=== PATIENT | female | born 1955 | race Caucasian/White ===

== ENCOUNTER 2021-12-14 19:54 | Emergency (ER) | payer MEDICARE, BC, SELFPAY ==
[2021-12-14 19:58] VITALS: BP 145/72; PULSE 86; RESP 16; TEMP 36.6; O2SAT 99; BMI 23.5
--- NOTE | 2021-12-14 21:58 | CRLHL7_ITS ---
For Patients: As a result of the Century Cures Act, medical imaging exams and procedure reports are released immediately into your electronic medical record. You may view this report before your referring provider. If you have questions, please contact your health care provider. INDICATION: Fall, face trauma. TECHNIQUE: CT head without contrast. COMPARISON: None. FINDINGS: CSF spaces: Within normal limits for age. Brain parenchyma and extra-axial spaces: The moreno-white differentiation is normal. No sign of mass, hemorrhage, or midline shift. No extra-axial fluid collection. Skull base and calvarium: The visualized mastoid air cells demonstrate no acute or significant findings. For osteoma seen noted sinus mucosal opacification. The visualized orbits are grossly unremarkable. No skull fractures. A comminuted anterior nasal bone fractures noted. IMPRESSION: No evidence of an acute intracranial abnormality. Comminuted anterior nasal bone fracture. Please note that all CT scans at this facility use dose modulation, iterative reconstruction, and/or weight-based dosing when appropriate to reduce radiation dose to as low as reasonably achievable. Dictated by Christiano Hernandez MD @ 12/15/2021 12:26:32 AM (Electronically Signed)
--- NOTE | 2021-12-14 21:58 | CRLHL7_ITS ---
For Patients: As a result of the Cures Act, medical imaging exams and procedure reports are released immediately into your electronic medical record. You may view this report before your referring provider. If you have questions, please contact your health care provider. INDICATION: Facial injury. TECHNIQUE: CT maxillofacial without contrast. COMPARISON: None. FINDINGS: Facial bones: Comminuted anterior nasal bone fracture. No other maxillofacial fracture identified. The orbits are intact. Orbits and globes: Unremarkable. Globes are intact. No sign of intraorbital hemorrhage or emphysema. Sinuses: Mild frothy secretions within the left sphenoid sinus. Soft tissues: Unremarkable. Cervical spine: Degenerative changes. IMPRESSION: Comminuted anterior nasal bone fracture. Please note that all CT scans at this facility use dose modulation, iterative reconstruction, and/or weight-based dosing when appropriate to reduce radiation dose to as low as reasonably achievable. Dictated by Christiano Hernandez MD @ 12/15/2021 12:36:30 AM (Electronically Signed)
--- NOTE | 2021-12-14 22:14 | ED_ITS ---
HPI - Fall General Time Seen by Provider: 22:14 Date Seen: 12/14/21 Chief Complaint: Fall/Minor Trauma Stated Complaint: Fall Time Seen by Provider: 12/14/21 22:14 Source: patient, RN notes reviewed and old records reviewed Mode of arrival: ambulatory Limitations: no limitations History of Present Illness HPI Narrative: Patient is a very pleasant 66-year-old female with a history of Parkinson's, orthostatic hypotension who comes to the emergency room via EMS after falling at her assisted living in [place]. Patient states that she was closing the blinds and that she fell hitting her face. She was not knocked unconscious but does note a lot of blood from her nose and nose pain. She denies neck pain chest pain or prodromal symptoms. She usually walks with a walker and has not walked since that time but denies new pelvic pain knee pain at this time. Unfortunately patient waited for an extended period in our waiting due to high patient volume in the ED. her daughter is present at this time and has very good insight into her mother's health. They are requesting the 2100 hours dose of carbidopa levodopa and would like us to look into the possibility of ambulance transport back to the intermediate. Related Data Allergies Allergy/AdvReac Type Severity Reaction Status Date / Time Penicillins Allergy Mild Hives Verified 12/14/21 20:04 Sulfa (Sulfonamide Allergy Mild Hives Verified 12/14/21 20:04 Antibiotics) Review of Systems Status of ROS: Reports: 10 or more systems reviewed and unremarkable except as noted in History and below Const: Denies: fever or chills Eyes: Denies: change in vision or blurry vision ENMT: Denies: neck pain or difficulty swallowing Cardio: Denies: chest pain, palpitations or shortness of breath with exertion Resp: Denies: shortness of breath or cough GI: Denies: abdominal pain, nausea, vomiting or difficulty swallowing : Denies: painful urination Musculo: Denies: neck pain Neuro: Reports: lack of coordination (History of Parkinson's); Denies: headache PFSH PFSH Social History Smoking Status: Unknown if ever smoked Do you use any of these nicotine containing products: None Second hand tobacco smoke exposure: No How often do you have a drink containing alcohol: never AUDIT-C Alcohol total score: 0 Non-prescribed substance use: denies use Exam Narrative: Exam Narrative: Patient is alert and oriented. Flat affect. Obeys commands and GCS of 15. EOM is full with pupils equal round reactive. Scalp is atraumatic normocephalic. No midline tenderness with palpation the patient did have some wincing with movement. Patient has a 2 cm laceration to the bridge of the nose vertically. It compromises epidermis and dermis. She has edema and swelling and I believe deviation of the nose. She does not have any evidence of a septal hematoma but she does have clots that are present in the nose. I have left these in place. Oral cavity shows moist mucous membranes. Dentition is intact. Heart with regular rate and rhythm and lungs are clear. Abdomen soft nontender. Palpation down lumbar and thoracic spine shows no tenderness. Hip/pelvis without tenderness and appears stable. Is able to move lower extremities. Const: Vital Signs, click to edit/add: Vital Signs - 24 hr 12/14/21 19:58 Temperature 97.8 F Pulse Rate [Pulse Oximeter] 86 Respiratory Rate 16 Blood Pressure [Ri ght Upper Arm] 145/72 H Pulse Oximetry 99 Oxygen Delivery Me thod Room Air Documenting provider has reviewed patient's vital signs: yes Course Course Hospital Course: At this time patient has had no loss of consciousness but does appear to have a nasal fracture. CTs of the head face and neck are currently pending given patient's age, appearance and exam. Will place let on the nose laceration. Will plan on sewing that. If she has underlying fracture will treat as an open fracture with antibiotics. Reevaluation(s) Reevaluation #1: Patient demonstrated appropriate ambulation. Vital Signs Vital signs: Initial Vital Signs Temperature 97.8 F 12/14/21 19:58 Temperature Source Temporal Artery Scan 12/14/21 19:58 Pulse Rate 86 12/14/21 19:58 Pulse Rhythm 12/14/21 19:58 Respiratory Rate 16 12/14/21 19:58 Blood Pressure 145/72 H 12/14/21 19:58 Blood Pressure Mean 96 12/14/21 19:58 Blood Pressure Position Sitting 12/14/21 19:58 Pulse Oximetry 99 12/14/21 19:58 Oxygen Delivery Method 12/14/21 19:58 Vital Signs Temperature 97.8 F 12/14/21 19:58 Pulse Rate 86 12/14/21 19:58 Respiratory Rate 16 12/14/21 19:58 Blood Pressure 145/72 H 12/14/21 19:58 Pulse Oximetry 99 12/14/21 19:58 Oxygen Delivery Method 12/14/21 19:58 Temperature 97.8 F 12/14/21 19:58 Pulse Rate 86 12/14/21 19:58 Respiratory Rate 16 12/14/21 19:58 Blood Pressure 145/72 H 12/14/21 19:58 Pulse Oximetry 99 12/14/21 19:58 Oxygen Delivery Method 12/14/21 19:58 MDM - Fall MDM Narrative Medical decision making narrative: Procedure: Further wounds identified on the anterior nose. Initial laceration shows to be approximately 2 cm in length. Two smaller 4 mm lacerations are noted inferior to this and on the lateral aspect of the nose. On the left 1 suture of 6 0 Ethilon was placed with good wound closure. Wound on the right is actually has good wound approximation and thus no suture was placed. On the larger lacera tion 3 sutures were placed in interrupted fashion of 6 0 Ethilon with good wound closure. There is no evidence of a septal hematoma on recheck. 1. Nasal fracture-at this time no evidence of septal hematoma. Given that this is technically open fracture will place patient on Keflex 500 mg p.o. b.i.d. x7 days. Would recommend follow-up with ENT in 7-10 days for recheck. My biggest concern is development of septal hematoma. At this time I do not see any evidence of this. Did try to remove some dried clots from the nose and was able to visualize septum bilaterally. Would ask that the nurse practitioner who rounds in patient's assisted living also check for this tomorrow. Of course with the development of septal hematoma will need to see ENT. Pain control with Tylenol as needed. Recommend sleeping with the head of the bed elevated. Recommend wheelchair use and increasing extra efforts to prevent falls. 2. Fall-no prodromal symptoms. Likely secondary to Parkinson's syndrome. 3. Disposition- home with daughter. At this time we do not have EMS rig available to give patient a ride. Patient's daughter will be taking her back to [place]. Note patient has a history of penicillin allergy. According to chart this is hives. Patient herself does not know what her reaction was. I attempted to look through her chart to find out if she had successfully taken other antibiotics or she had any difficulty with cephalosporins but did not find any further information. In this particular case the alternative to penicillin and Keflex would be clindamycin and in her age group I would rather not use clindamycin given its increased tendency to cause C diff. Medical Records Attestation: I reviewed the patient's medical records. Imaging Data CT scan - head: Attestation: I have reviewed the pertinent imaging results. My impression: No acute bleed Radiologist's impression: CSF spaces: Within normal limits for age.? Brain parenchyma and extra-axial spaces: The moreno-white differentiation is normal.? No sign of mass, hemorrhage, or midline shift. No extra-axial fluid collection.? Skull base and calvarium: The visualized mastoid air cells demonstrate no acute or significant findings. For osteoma seen noted sinus mucosal opacification. The visualized orbits are grossly unremarkable.? No skull fractures.? A comminuted anterior nasal bone fractures noted. IMPRESSION: No evidence of an acute intracranial abnormality. Cervical spine CT: Attestation: I have reviewed the pertinent imaging results. My impression: Multilevel spondylosis. Especially at C-5 and 6. No acute injury. Radiologist's impression: Vertebrae: Alignment is normal. There are no fractures or suspicious bony lesions. Discs and facet joints: There are degenerative disc changes most severe at C5-6. There are diffuse degenerative changes in the facets. Extraspinal findings: Paraspinous soft tissues are unremarkable. IMPRESSION: 1. No acute bony abnormality 2. Multilevel degenerative spondylosis, greatest at C5-6, with diffuse degenerative changes of the facets. Facial CT: Attestation: I have reviewed the pertinent imaging results. My impression: Nasal bone fracture Radiologist's impression: Comminuted anterior nasal bone fracture. Discharge Plan Discharge Clinical Impression: Epistaxis due to trauma, Fracture of nasal bone, Fall, Laceration of nose Patient Disposition: Home w/ Parent or Adult Condition: Improved Additional Instructions: Recommend starting antibiotic tonight for wound infection prophylaxis. We will use Keflex. This is available in our [facility] meds machine Tylenol as needed. Please have nurse practitioner check knows to ensure that that there is no development of a septal hematoma. Sleep with head elevated tonight. Seek medical attention for change in mentation, fever, persistent nose bleed and as needed. Recommend use of wheelchair an extra attention to prevention of falls. I recommend following up with ENT in the next 7-10 days. Follow Up/Referrals: Provider,Not a Local [Primary Care Provider] - Stand Alone Forms: MyHealth Info Instructions
--- NOTE | 2021-12-14 22:31 | CRLHL7_ITS ---
For Patients: As a result of the Cures Act, medical imaging exams and procedure reports are released immediately into your electronic medical record. You may view this report before your referring provider. If you have questions, please contact your health care provider. INDICATION: Fall, facial trauma. TECHNIQUE: CT cervical spine without contrast. COMPARISON: None. FINDINGS: Vertebrae: Alignment is normal. There are no fractures or suspicious bony lesions. Discs and facet joints: There are degenerative disc changes most severe at C5-6. There are diffuse degenerative changes in the facets. Extraspinal findings: Paraspinous soft tissues are unremarkable. IMPRESSION: 1. No acute bony abnormality 2. Multilevel degenerative spondylosis, greatest at C5-6, with diffuse degenerative changes of the facets. Please note that all CT scans at this facility use dose modulation, iterative reconstruction, and/or weight-based dosing when appropriate to reduce radiation dose to as low as reasonably achievable. Dictated by Christiano Hernandez MD @ 12/15/2021 12:39:50 AM (Electronically Signed)
--- OUTSIDE RECORDS SUMMARY | 2021-12-14 22:51 | XMS_ITS | Encounter Summary ---
:1955 Author Organization [facility] Address [address] [place] [address] Care Team Providers Name Role Phone Joanne Higuera APRN, CNP Primary Care Provider [phone] Reason for Visit Reason Comments Follow-up Blood Pressure, low Once a week passes out Encounter Details Date Type Department Care Team Description 10/04/2021 Office Visit [facility] Parris Lucas MD Parkinson's disease (HRC) (Primary Dx); [address] [facility] Mild cognitive impairment [address] [place] [address] [phone] (Wo rk) Social History Tobacco Use Types Packs/Day Years Used Date Smoking Tobacco: Never Sex Assigned at Date Recorded Not on file documented as of this encounter Last Filed Vital Signs Vital Sign Reading Time Taken Comments Blood Pressure 134/78 10/04/2021 4:26 PM CDT Pulse 84 10/04/2021 4:26 PM CDT Temperature - - Respiratory Rate - - Oxygen Saturation - - Inhaled Oxygen Concentration - - Weight 72.5 kg (159 lb 12.8 oz) 10/04/2021 4:24 PM CDT shoes on Height - - Body Mass Index 24.3 12/26/2016 2:34 PM CDT documented in this encounter Patient Instructions Patient InstructionsParris Lucas MD - 10/04/2021 4:10 PM CDT Please contact us using MyChart or by calling the [facility] nurse line at [phone]. Two easy ways to stay connected with what is going on at [facility]: If you have not already done so, we encourage you to sign up (for free) to be on our e-mailing list,so that you will receive information about upcoming classes, events, and activities hosted by [facility]! To sign up, simply send an email to [email or web address] indicating that you would like to be included. 2. Follow us on Facebook to learn more about current news and upcoming events. Find us at [facility]anna Sher! Sit before you faint when things turn blue! Let me know about the black toilet seat Consider getting distance glasses for distance and reading glasses for reading Return in 6 months documented in this encounter Progress Notes Parris Lucas MD - 10/04/2021 4:10 PM CDT Images from the original note were not included. [address] [place] [address] FOLLOWUP EXAMINATION SUBJECTIVE Chief Complaint Patient presents with Follow-up Blood Pressure, low Once a week passes out Current concerns and update: This visit was conducted: in person. The patient was in the clinic and the doctor was at [facility]. The patient-facing part of the visit began at 4:34pm and ended at 5:04pm. Scheduling of this appointment via this modality implies that both parties agreed that this was an appropriate mechanism by which to acquire/provide medical care. This 66 yo pt returns for followup of late-stage Parkinson's disease with cognitive impairment, hallucinations, NOH and other autonomic issues. At the last visit in June, she had developed burning tongue. She is taking sinemet 25/250 1 pill at 7-5-93-1-3-5-7 and a CR at bedtime (half a pill at 5pm).SHe also takes lexapro and remeron, florinef and midodrine, and Nuplazid. She moved to memory care in July, so she could have more assistance. She is fainting weekly, mostly gets a feeling that her vision is going blue before she faints, but then she tries to get to wherever she is going first. They have now gotten her using cotton sheets, and are looking into a black toilet seat and other strategies to address her visual perceptual issues. Past Medical History Update: No past medical history on file. Adverse Drug Reactions: Reviewed today and updated on Health Profile in [facility]. Allergies Allergen Reactions Penicillins PN: LW Reaction: Fever Sulfa Antibiotics PN: rash Current Medications: Reviewed today and updated on Health Profile in [facility]. Outpatient Medications Prior to Visit Medication Sig Dispense Refill acetaminophen (TYLENOL) 500 MG tablet Take 1,000 mg by mouth three times a day. Plus 100mg bid PRN Maximum acetaminophen dose is 4000 mg in 24 hours calcium carbonate (TUMS-EX) 750 MG chewable tablet Chew and swallow 750 mg by mouth two times a day. carbidopa-levodopa (SINEMET) 25-250 MG tablet Take 1 tab po at 7:05am, 9am, 11am, 1pm, 3:05pm and 7pm and 1/2 pill at 5pm 675 Tablet 3 carbidopa-levodopa (SINEMETCR) 50-200 MG controlled release tablet Take 1 Tablet by mouth daily at bedtime. 9pm 90 Tablet 3 cholecalciferol (VITAMIND3) 50 MCG (2000 UT) tablet Take 2,000 Units by mouth daily. denosumab (PROLIA) 60 MG/ML injection Inject 60 mg subcutaneously every 6 months. escitalopram oxalate (LEXAPRO) 20 MG tablet Take 20 mg by mouth daily. fludrocortisone (FLORINEF) 0.1 MG tablet Take 2 Tablets (0.2 mg) by mouth daily. 7am 180 Tablet 3 lidocaine (ASPERCREAM) 4 % patch Apply 1 Patch to skin daily. Leave on for up to 12 hours in a 24 hour period, then remove. magnesium oxide (AKA MAG-OX) 500 MG tablet Take 500 mg by mouth daily. midodrine (PROAMATINE) 5 MG tablet Take 1 Tablet (5 mg) by mouth daily. 7am and 11am (Patient taking differently: Take 5 mg by mouth two times a day. 7am and 11am) 180 Tablet 3 mirtazapine (REMERON) 15 MG tablet Take 0.5 Tablets (7.5 mg) by mouth daily at bedtime. 45 Tablet 3 Multiple Vitamins-Minerals (MULTIVITAMIN ADULT OR) Take 1 Tablet by mouth Daily. omeprazole (PRILOSEC) 20 MG capsule Take 1 Capsule by mouth daily. Pimavanserin Tartrate (NUPLAZID) 34 MG CAPS Take 1 Capsule (34 mg) by mouth daily. 90 Capsule 3 sennosides-docusate sodium (SENOKOT S) 8.6-50 MG per tablet Take 2 Tablets by mouth daily. Plus 1 tab daily PRN potassium chloride SA (KLOR-CON) 10 MEQ controlled release tablet Take 1 Tablet by mouth daily. (Patient not taking: No sig reported) No facility-administered medications prior to visit. Family History Update: No family history on file. Social History Update: She moved to [facility] care Review of Systems: Dizziness, dry mouth, hallucinations, vivid dreams, falls, muscle aches, joint pain Falls since last visit? She has had falls OBJECTIVE Vital Signs: (includes sitting and standing blood pressure) Vitals: 10/04/21 1624 Weight: 72.5 kg (159 lb 12.8 oz) Unified Parkinson's Disease Rating Scale (Part 2) Functional Score (maximum 52): 34 General: She sits comfortably in the chair Neurologic exam: Head bobbing and chewing movement She walks with a Ustep walker She answers some questions, but daughters provided most of the details She could stand on her own with standby assistance, walked OK with the Ustep No tremor ,no limb dyskinesia ASSESSMENT/PLAN Late stage Parkinson's disease. It sounds like Memory Care has provided her with more support and activities, and the staff and family are continuing to look for strategies to make things safer. We talked about sitting down as soon as she feels faint. We also talked about having a WC available for a bad day, or if her knee is bothering her (she is [id number], but the decision has been made not to proceed with surgery at this point in her Parkinson's, so will just have to get along with steroid shots every 6 months.) I will see her back in 6 months. I did not make any medication changes. Time: 4 minutes chart review and pre-visit charting 4 minutes post-clinic charting 30 minutes examination and counseling (time with the patient) 38 minutes TOTAL TIME (sum of the previous three numbers) Send a copy of note to: Joanne Higuera CNP, [address] [place] [address] Parris Lucas MD 4:28 PM 10/04/2021 documented in this encounter Plan of Treatment Upcoming Encounters Date Type Specialty Care Team Description 06/08/2022 Appointment Neurology Parris Lucas MD [address] [facility] [address] [facility] [id number] (Wo rk) documented as of this encounter Visit Diagnoses Diagnosis Parkinson's disease (HRC) - Primary Mild cognitive impairment Mild cognitive impairment, so stated documented in this encounter Care Teams Multifold Operator Relationship Specialty Start Date End Date Joanne Higuera APRN, CNP PCP - General Nurse Practitioner 06/18/20 [address] [place] [phone] documented as of this encounter
--- OUTSIDE RECORDS SUMMARY | 2021-12-14 22:51 | XMS_ITS | Clinical Summary ---
:1955 [facility] Address [address] [place] [address] Care Team Providers Name Role Phone Joanne Higuera APRN, CNP Primary Care Provider [phone] Source Comments You are receiving this document as you are listed as the primary care provider,follow-up provider, or the patient has been referred to you for consultation.This is in compliance with the Medicare and Medicaid EHR Incentive Program,which states Providers who transition their patient to another setting of careor provider of care or refers their patient to another provider of care shouldprovide summarycare record for each transition of care or referral. YES.TAP Allergies Active Allergy Reactions Severity Noted Date Comments Penicillins 03/03/2009 PN: LW Reaction : Fever Sulfa Antibiotics 01/17/2013 PN: rash Medications Medication Sig Dispensed Refills Start Date End Date Status Multiple Take 1 Tablet by 0 05/31/2013 Ac tive Vitamins-Minerals mouth Daily. (MULTIVITAMIN ADULT OR) magnesium oxide (AKA Take 500 mg by 0 Active MAG-OX) 500 MG tablet mouth daily. escitalopram oxalate Take 20 mg by mouth 0 Active (LEXAPRO) 20 MG daily. tablet calcium carbonate Chew and swallow 0 Active (TUMS-EX) 750 MG 750 mg by mouth two chewable tablet times a day. acetaminophen Take 1,000 mg by mouth three times a day. Plus 100mg bid PRN 0 Active (TYLENOL) 500 MG Maximum acetaminophen dose is 4000 mg in 24 hours tablet sennosides-docusate Take 2 Tablets by 0 Active sodium (SENOKOT S) mouth daily. Plus 1 8.6-50 MG per tablet tab daily PRN lidocaine Apply 1 Patch to 0 Act tung (ASPERCREAM) 4 % skin daily. Leave patch on for up to 12 hours in a 24 hour period, then remove. cholecalciferol Take 2,000 Units by 0 Active (VITAMIND3) 50 MCG mouth daily. (1999 UT) tablet omeprazole (PRILOSEC) Take 1 Capsule by 0 02/07/2021 Active 20 MG capsule mouth daily. denosumab (PROLIA) 60 Inject 60 mg 0 Active MG/ML injection subcutaneously every 6 months. carbidopa-levodopa Take 1 Tablet by 90 Tablet 3 06/21/2021 Active (SINEMETCR) 50-200 MG mouth daily at controlled release bedtime. 9pm tablet carbidopa-levodopa Take 1 tab po at 675 Tablet 3 06/21/2021 Active (SINEMET) 25-250 MG 7:05am, 9am, 11am, tablet 1pm, 3:05pm and 7pm and 1/2 pill at 5pm mirtazapine (REMERON) Take 0.5 Tablets 45 Tablet 06/21/2021 Active 15 MG tablet (7.5 mg) by mouth daily at bedtime. Pimavanserin Tartrate Take 1 Capsule (34 90 Capsule 3 06/22/19 22 Active (NUPLAZID) 34 MG CAPS mg) by mouth daily. midodrine Take 1 Tablet (5 180 Tablet 06/21/2021 A ctive (PROAMATINE) 5 MG mg) by mouth daily. tablet 7am and 11am Additional Information Patient taking differently: 5 mg Oral BID, 7am and 11am, Reported on 10/04/2021 fludrocortisone (FLORINEF) 0.1 Take 2 Tablets (0.2 180 Tablet 06/21/2021 Active MG tablet mg) by mouth daily. 7am Active Problems Problem Noted Date Mild cognitive impairment 08/21/2018 Dyskinesia, drug-induced 12/27/2016 Neurogenic orthostatic hypotension 12/27/2016 Parkinson's disease 10/08/2010 Encounters Date Type Specialty Care Team Description 10/04/2021 Office Visit Neurology Parris Lucas MD [facility] n's disease (C) (Primary Dx); Mild cognitive impairment from Last 3 Months Immunizations Name Administration Dates Next Due Influenza IIV4 (Quadrivalent) 0.5mL 12/20/2018, 12/26/2016, 12/05/2014 (40230) Pfizer (Comirnaty) COVID-19, 12+ Yrs 04/13/2020, 03/23/2020 [facility] Social History Tobacco Use Types Packs/Day Years Used Date Smoking Tobacco: Never Sex Assigned at Date Recorded Not on file Last Filed Vital Signs Vital Sign Reading Time Taken Comments Blood Pressure 134/78 10/04/2021 4:26 PM CDT Pulse 84 10/04/2021 4:26 PM CDT Temperature - - Respiratory Rate - - Oxygen Saturation - - Inhaled Oxygen Concentration - - Weight 72.5 kg (159 lb 12.8 oz) 10/04/2021 4:24 PM CDT shoes on Height 172.7 cm (5' 8) 12/26/2016 2:34 PM CDT Body Mass Index 24.3 12/26/2016 2:34 PM CDT Plan of Treatment Upcoming Encounters Date Type Specialty Care Team Description 06/08/2022 Appointment Neurology Parris Lucas MD [address] [facility] [address] [facility] [address] (Wo rk) Health Maintenance Due Date Last Done Comments Colon Cancer Screening Plan 1955 Due Hep C Screening (Preventive 1955 Services) Medicare Annual Wellness 1955 Visit Mammogram 1955 Cholesterol 06/21/2000 Zoster/Shingles (1 of 2) 06/21/2005 Pneumococcal 65+ Yrs (2 - 03/25/2017 03/25/2016 PCV) COVID-19 Vaccine (3 - 06/08/2020 04/13/2020, 03/23/2020 Booster for Pfizer series) Dexa 06/21/2020 Influenza (#1) 2021 12/01/2020, 12/20/2018, 12/14/2017, Additional history exists DTaP/Tdap/Td (2 - Tdap) 11/09/2022 11/09/2012 HepA Aged Out No longer eligib le based on patient 's age to complete this topic HepB Aged Out No longer eligib le based on patient 's age to complete this topic Hib Aged Out No longer eligib le based on patient 's age to complete this topic IPV (Polio) Aged Out No longer eligib le based on patient 's age to complete this topic MCV4 Aged Out No longer eligib le based on patient 's age to complete this topic Insurance Payer Benefit Plan / Subscriber ID Effective Phone Address T ype Group Dates MEDICARE MEDICARE [id number] 2012-Godwin penare nt BCBS BCBS MEDICARE [id number] 2016-Pres [phone] [address] [address] Medicare SUPPLEMENT B ent [address] [place] [address] Darlene Drew Personal/Family Self [address] (Home) [place] [address] Clifton Drew Personal/Family Self 01/02/1951 [address] (Home) [place], [place] [phone] (Work) Care Teams Caregiver Assisted Living Relationship Specialty Start Date End Date Joanne Higuera, FILM PROCESSOR, BEEF GRINDER PCP - General Nurse Practitioner 06/18/20 [address] [place] [address]
--- OUTSIDE RECORDS SUMMARY | 2021-12-14 22:51 | XMS_ITS | Encounter Summary ---
:1955 Author Organization [facility] Address [address] [place] [address] Care Team Providers Name Role Phone Joanne Higuera APRN, FLORES Primary Care Provider [phone] Reason for Visit Reason Comments UPDATE BP Readings Encounter Details Date Type Department Care Team Description 02/08/2021 Telephone [facility] Joselyn Hernandez UPDATE (BP Readings ) [address] [place] [address] Social History Tobacco Use Types Packs/Day Years Used Date Smoking Tobacco: Never Sex Assigned at Date Recorded Not on file documented as of this encounter Nursing Notes Joselyn Hernandez RN - 02/10/2021 3:45 PM CST Called in response and spoke with nurse Abiola. No additional questions or concerns. Closing encounter. AGE CONTROL OPERATOR FORMING Parris Lucas MD - 02/10/2021 2:25 PM CST yes AGE CONTROL OPERATOR FORMING Joselyn Hernandez RN - 02/10/2021 2:16 PM CST Abiola from facility called to determine if the additional dose of midodrine should have the same parameters on when to hold. Current dosing parameters are to hold if SBP >130. Dr. Lucas - Please advise AGE CONTROL OPERATOR FORMING Parris Lucas MD - 02/09/2021 3:37 PM CST Sent, thanks AGE CONTROL OPERATOR FORMING Joselyn Hernandez RN - 02/09/2021 3:07 PM CST Faxed change to facility. Dr. Lucas - Please update order for pharmacy. AGE CONTROL OPERATOR FORMING Parris Lucas MD - 02/09/2021 12:27 PM CST I would suggest adding midodrine 5mg at 7am AGE CONTROL OPERATOR FORMING Joselyn Hernandez RN - 02/08/2021 4:24 PM CST Received list of BP and medication list from facility. Placed in providers folder. Updated Epic medications. Confrimed with facility nurse patient is on 0.2mg florinef at 7am and 5mg midodrine at 11am. Dr. Lucas - Please advise once reviewed BPs. AGE CONTROL OPERATOR FORMING documented in this encounter Plan of Treatment Upcoming Encounters Date Type Specialty Care Team Description 06/08/2022 Appointment Neurology Parris Lucas MD [address] [facility] [address] [facility] [address] [id number] (Wo rk) documented as of this encounter Visit Diagnoses Not on filedocumented in this encounter Care Teams Wool Puller Relationship Specialty Start Date End Date Joanne Higuera, PIPELINE CONTROLLER, TRACTOR SWEEPER OPERATOR PCP - General Nurse Practitioner 06/18/20 [address] [place], [place] [id number] documented as of this encounter
--- OUTSIDE RECORDS SUMMARY | 2021-12-14 22:51 | XMS_ITS | Encounter Summary ---
:1955 Author Organization [employer] Address [address] [place] [address] Care Team Providers Name Role Phone Joanne Higuera APRN, FLORES Primary Care Provider [phone] Reason for Visit Reason Comments Questions Encounter Details Date Type Department Care Team Description 01/18/2021 Telephone [facility] Fior Daniel RN Questions [address] [place] [phone] Social History Tobacco Use Types Packs/Day Years Used Date Smoking Tobacco: Never Sex Assigned at Date Recorded Not on file documented as of this encounter Nursing Notes Fior Daniel RN - 01/19/2021 10:51 AM CST Monisha called back, stated she will be available the rest of the day but we can also leave detailed message. Attempted call and again got voicemail. I left Dr. Lucas's instructions regarding medications and B/P readings. She can call back if any further clarification is needed or further questions. STACKER Fior Daniel RN - 01/19/2021 9:01 AM CST Attempted call to Monisha, left message to return call to discuss. Parris Gao MD - 01/18/2021 4:52 PM CST If it is high throughout the day, then I would stop the fludrocortisone. If it is high at a certain time of the day, but low at some other time, then I would probably stop or reduce the midodrine priorto whatever the bad time of day is. THey should hold (not give) the midodrine any time the SBP is >110 at the time a dose is scheduled. (ie check BP before each midodrine dose and don't give the dose of the SBP is>110). STACKER Fior Daniel, RN - 01/18/2021 4:13 PM CST Monisha left the following message this morning for : States that Carb/Levo doses were reduced in the middle of the day. The nurses have been watching her B/P and it is quite high, over 200/80. She has been getting more calls from them about her falling and reports more cloudiness and she wonders f that is related to her medications or her anxiety or hallucinations. She states she knows that she is in advanced stage of Parkinsosn but wanted to know if you had any thoughts or suggestions prior to her discussing with the PA? I did not have a block of time to call and discuss with her this afternoon. I will call her tomorrow but just wondered if you have any thoughts or suggestions? STACKER documented in this encounter Plan of Treatment Upcoming Encounters Date Type Specialty Care Team Description 06/08/2022 Appointment Neurology Parris Lucas MD [address] [facility] [address] [facility] [address] [address] (Wo rk) documented as of this encounter Visit Diagnoses Not on filedocumented in this encounter Care Teams Adventure Guide Relationship Specialty Start Date End Date Joanne Higuera, WATERMASTER, EMBEDDED SOFTWARE DEVELOPER PCP - General Nurse Practitioner 06/18/20 [address] [facility] [place] [place] [id number] documented as of this encounter
--- OUTSIDE RECORDS SUMMARY | 2021-12-14 22:51 | XMS_ITS | Encounter Summary ---
:1955 Author Organization [facility] Address [address] [place] [address] Care Team Providers Name Role Phone Joanne Higuera APRN, CNP Primary Care Provider [phone] Reason for Visit Reason Comments Follow-up Refill Florinef 0.1mg, Midodrine 5m g, Nuplazid 34mg, Mirtazapine 15mg, Carbidopa/Levodopa 25/250mg, Carbidopa/Levodopa CR 50/200mg Encounter Details Date Type Department Care Team Description 06/21/2021 Office Visit [facility] Parris Lucas MD Parkinson's disease (HRC) (Primary Dx); [address] [facility] Mild cognitive impairment; [address] Neurogenic orthostatic hypotension (HRC) ; [place], [place] Burn[place] ng tongue; [id number] Dyskinesia, drug-induced; [phone] (Wo rk) 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) Social History Tobacco Use Types Packs/Day Years Used Date Smoking Tobacco: Never Sex Assigned at Date Recorded Not on file documented as of this encounter Last Filed Vital Signs Vital Sign Reading Time Taken Comments Blood Pressure 164/82 06/21/2021 11:24 AM CDT Pulse 79 06/21/2021 11:24 AM CDT Temperature - - Respiratory Rate - - Oxygen Saturation - - Inhaled Oxygen Concentration - - Weight 69.4 kg (153 lb) 06/21/2021 11:22 AM CDT shoes o n Height - - Body Mass Index 23.26 12/26/2016 2:34 PM CDT documented in this encounter Patient Instructions Patient InstructionsParris Lucas MD - 06/21/2021 11:15 AM CDT Please contact us using [employer] or by calling the [facility] [place] nurse line at [phone]. Two easy ways to stay connected with what is going on at [facility]: If you have not already done so, we encourage you to sign up (for free) to be on our e-mailing list,so that you will receive information about upcoming classes, events, and activities hosted by [facility]! To sign up, simply send an email to [email or web address] indicating that you would like to be included. 2. Follow us on Facebook to learn more about current news and upcoming events. Find us at [facility]! Sign up for evening cares at your facility! Use the toilet every 2 hours during the day when you take your pills Increase the 1pm sinemet to a whole pill Reduce the bedtime mirtazapine to 1/2 pill Return in October! documented in this encounter Progress Notes Parris Lucas MD - 06/21/2021 11:10 AM CDT Images from the original note were not included. [address] [place] [address] ANNUAL FOLLOW-UP EXAMINATION SUBJECTIVE Chief Complaint Patient presents with ??? Follow-up ??? Refill Florinef 0.1mg, Midodrine 5mg, Nuplazid 34mg, Mirtazapine 15mg, Carbidopa/Levodopa 25/250mg, Carbidopa/Levodopa CR 50/200mg Neurological update and patient concerns This patient was seen in person. The patient and doctor were at [facility] [place]. The visit began at 11;34am and ended at 12:05pm. This 66 yo pt returns on her 66th birthday(!) for routine 6 month followup of late-stage Parkinson's disease with NOH, MCI, and hallucinations, onset about 2005, followed by me since 2008.??At the last visit, I asked her to reduce the 1 and 5pm sinemet doses to a half pill, as she was having a lot ofdyskinesia. I also wrote to hold midodrine for SBP>130. Pt says they hold the second dose 1-2x a week. ?? She takes Nuplazid, midodrine, florinef, lexapro, remeron, and IR sinemet 1 pill about every 2 hours, 7 doses and a CR at bedtime. We had a few phone calls in late 2020 about her BP,and one about an episode of diarrhea, but have not had any calls in 2021. 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 She has had several falls recently, often when she is without her walker, often in the evenings. She has started to have burning tongue. Her daughter is working on strategies to address this (don'tbrush her tongue, try a mouthwash), and it does not yet require medications from me. Hallucinations still occur but are manageable. Past medical history update See above Adverse drug reactions Adverse Drug Reactions were reviewed today, and [facility]. Current medications Reviewed today and updated on [facility]. Outpatient Medications Prior to Visit Medication Sig Dispense Refill ??? acetaminophen (TYLENOL) 500 MG tablet Take 500 mg by mouth three times a day. Plus 100mg bid PRN Maximum acetaminophen dose is 4000 mg in 24 hours ??? calcium carbonate (TUMS-EX) 750 MG chewable tablet Chew and swallow 750 mg by mouth two times a day. ??? cholecalciferol (VITAMIND3) 50 MCG (2000 UT) tablet Take 2,000 Units by mouth daily. ??? denosumab (PROLIA) 60 MG/ML injection Inject 60 mg subcutaneously every 6 months. ??? escitalopram oxalate (LEXAPRO) 20 MG tablet Take 20 mg by mouth daily. ??? lidocaine (ASPERCREAM) 4 % patch Apply 1 Patch to skin daily. Leave on for up to 12 hours in a 24 hour period, then remove. ??? magnesium oxide (AKA MAG-OX) 500 MG tablet Take 500 mg by mouth daily. ??? Multiple Vitamins-Minerals (MULTIVITAMIN ADULT OR) Take 1 Tablet by mouth Daily. ??? omeprazole (PRILOSEC) 20 MG capsule Take 1 Capsule by mouth daily. ??? potassium chloride SA (KLOR-CON) 10 MEQ controlled release tablet Take 1 Tablet by mouth daily. (Patient not taking: Reported on 06/21/2021) ??? sennosides-docusate sodium (SENOKOT S) 8.6-50 MG per tablet Take 2 Tablets by mouth daily. Plus 1 tab daily PRN ??? carbidopa-levodopa (SINEMET) 25-250 MG tablet Take 1 tab po at 7:05am, 9am, 11am, 3:05pm and 7pmand 1/2 pill at 1pm and 5pm 540 Tablet 3 ??? carbidopa-levodopa (SINEMETCR) 50-200 MG controlled release tablet Take 1 Tablet by mouth daily at bedtime. 9pm 90 Tablet 3 ??? fludrocortisone (FLORINEF) 0.1 MG tablet Take 2 Tablets by mouth daily. (Patient taking differently: Take 0.2 mg by mouth daily. 7am) 180 Tablet 3 ??? midodrine (PROAMATINE) 5 MG tablet Take 1 Tablet by mouth daily. 7am and 11am 180 Tablet 3 ??? mirtazapine (REMERON) 15 MG tablet Take 1 Tablet by mouth daily at bedtime. 90 Tablet 2 ??? Pimavanserin Tartrate (NUPLAZID) 34 MG CAPS Take 34 mg by mouth daily. 90 Capsule 3 No facility-administered medications prior to visit. Family history update No new information to report Social history update 1. Lives in assisted living 2. 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 Driving status: not driving 5. Family involvement, need for assistance: she needs assistance with most ADLs 6. Alcohol/tobacco: none 7. Exercise: walks in the building 8. Safety concerns: falls, uses a Ustep walker 9. Advance health care directive*: she has one Review of systems 1. Cognitive: ongoing issues 2. Autonomic*: no concerns about orthostatic hypotension, constipation, fecal incontinence, bladder urgency, bladder incontinence, nocturia, urinary retention, delayed gastric emptying, dysphagia, drooling, hyperhidrosis, sexual dysfunction, except for concerns about the following: bladder urgency 3. Psychiatric* (PQRS measure #290): does not have concerns about psychosis, hallucinations, depression, anxiety, apathy, impulse control, except for concerns about the following: no concerns 4. Sleep* (PQRS measure #292): does not have concerns about insomnia, sleep fragmentation, nocturnalmotor symptoms, REM behavior disorder, restless legs syndrome, sleep disordered breathing, excessivedaytime sleepiness, except for concerns about the following: vivid dreams 5. Falls in the last 6 months*/assistive device: falls, uses the walker but forgets it sometimes 6. Medication-related motor complications* (wearing off, dyskinesia, dystonia, on/off):none; 20 percent of waking hours are off 7. Skin: no concerns 8. Weight/nutrition: stable 9. Other: none OBJECTIVE + Vital Signs: includes sitting and standing blood pressure Vitals: 06/21/21 1122 06/21/21 1124 BP: (!) 169/81 (!) 164/82 Pulse: 75 79 Weight: 69.4 kg (153 lb) + Unified Parkinson's Disease Rating Scale Activities of Daily Living Score (maximum 52): not completed + General: She is well dressed and groomed + Neurologic exam: cognitive assessment* (PQRS measure #291): She provides some information, but daughter provides most of the details Voice is slow She has some difficulty maintaining truncal tone Mild writhing dyskinesia movements while seated She gets up independently, able to use her walker once she gets going ASSESSMENT (review of diagnosis and discussion of any atypical features*; PQRS measure #289) (note that the useof the term Parkinson's disease implies a review of disease features according to the [place] [employer] Brain Bank Diagnostic Criteria) Parkinson's disease, late stages, with mild cognitive impairment, hallucinations, and NOH and other autonomic issues. Burning tongue is a new addition to her symptom list, which we will keep an eye on.I will reduce the bedtime mirtazapine to 7.5mg, I do not perceive her as depressed at this point, and she is sleeping well, so perhaps we will later stop that drug. I will increase the 1pm sinemet 25/250 to a whole pill, as pt has more mobility issues in the early-mid afternoon, and that is a time that there are often activities in the building. She had dyskinesia in the past, which was why we reduced that dose to a half pill, but we shall see. Return in 4 months. Nuplazid, midodrine, and florinef all seem to be OK. We talked about getting assistance with cares in the evening, which she has resisted, but I think that might reduce her risk of falls, which are more likely to occur when she is tired. PLAN + Medical and surgical treatment options (PQRS measure #294): See above + This patient is not taking, and should not take, antidopaminergic drugs such as metoclopramide, haloperidol, thorazine, or chlorpromazine.* + Rehabilitation options* (PQRS measure #293): PT, OT, and speech therapy referrals considered but not needed + Safety concerns counseling: falls + Return in 4 months Time: 5 minutes previsit chart review and charting 4 minutes postvisit charting 31 minutes in-person time with patient 40 minutes TOTAL TIME (sum of the first three numbers) Send copy to: Joanne Higuera CNP,??[address] [facility] [address] ?? Parris Lucas MD 12:30 PM 06/21/2021 Note: The 11 items marked with an asterisk (*) are [employer] 2015 quality measures for Parkinson's disease (Factor et al, Neurology 86: 2278- 2283, 2016) documented in this encounter Plan of Treatment Upcoming Encounters Date Type Specialty Care Team Description 06/08/2022 Appointment Neurology Parris Lucas MD [address] [facility] [address] [facility] [address] [id number] (Wo rk) documented as of this encounter Visit Diagnoses Diagnosis Parkinson's disease (HRC) - Primary Mild cognitive impairment Mild cognitive impairment, so stated Neurogenic orthostatic hypotension (HRC) Burning tongue Glossodynia Dyskinesia, drug-induced Lack of coordination 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
--- OUTSIDE RECORDS SUMMARY | 2021-12-14 22:51 | XMS_ITS | Encounter Summary ---
:1955 Author Organization [employer] Address [address] [place] [address] Care Team Providers Name Role Phone Joanne Higuera APRN, FLORES Primary Care Provider [phone] Reason for Visit Reason Comments Symptoms Encounter Details Date Type Department Care Team Description 01/27/2021 Telephone [place] [facility] Joselyn Hernandez, RN Symptoms [address] [place] [phone] Social History Tobacco Use Types Packs/Day Years Used Date Smoking Tobacco: Never Sex Assigned at Date Recorded Not on file documented as of this encounter Nursing Notes Parris Lucas MD - 01/27/2021 2:26 PM CST I would not associate diarrhea with Parkinson's disease or Parkinson's disease meds or starting or stopping BP meds. Her Parkinson's disease medication may not work as well (may not get absorbed) when she is having diarrhea, so be prepared for worse Parkinson's disease symptoms while she is sick. And I, too, would have to suggest looking elsewhere for the cause or treatment for the diarrhea. ELET MAKER NOVELTY Joselyn Hernandez, RN - 01/27/2021 1:39 PM CST Patient daughter (Monisha) called with concerns about patient having uncontrolled diarrhea over the last 2-3 nights, leaning to the right and SBP ranging from 70's to 200's. Onset for worsening in last few days. Monisha wanted to know if it could be related to changing BP medications on 01/19/21 or the decrease of C/L IR last month. Discussed we would expect to see changes in these medications closer to the actual change. Will confirm with provider concerning d/c florinef 01/19/21. Family plans to take patient to ER to be seen for cause. Discussed with current COVID surge UC may be a faster route to beevaluated. Dr. Lucas - Any additional recommendations? ELET MAKER NOVELTY documented in this encounter Plan of Treatment Upcoming Encounters Date Type Specialty Care Team Description 06/08/2022 Appointment Neurology Parris Lucas MD [address] [facility] [address] [facility] [address] (Wo rk) documented as of this encounter Visit Diagnoses Not on filedocumented in this encounter Care Teams Robot Designer Relationship Specialty Start Date End Date Joanne Higuera, LABORER TANBARK, SHOVEL LOADER OPERATOR PCP - General Nurse Practitioner 06/18/20 [address] [place], [place] [id number] documented as of this encounter
--- OUTSIDE RECORDS SUMMARY | 2021-12-14 22:51 | XMS_ITS | Encounter Summary ---
:1955 Author Organization [employer] Address [address] [place] [address] Care Team Providers Name Role Phone Joanne Higuera APRN, FLORES Primary Care Provider [phone] Reason for Visit Reason Comments Paperwork Encounter Details Date Type Department Care Team Description 08/06/2021 Telephone [place] [facility] Gina Briceno, Paperwork [address] [place] [address] Social History Tobacco Use Types Packs/Day Years Used Date Smoking Tobacco: Never Sex Assigned at Date Recorded Not on file documented as of this encounter Nursing Notes Gina Briceno RN - 08/20/2021 2:15 PM CDT Left message for daughter that certificate is in the mail for her. Made copy and sent to [facility] as well. Gina Briceno RN - 08/06/2021 10:35 AM CDT Patient's daughter calling to request completion of Application for Disability Parking Certificate. Patient is no longer driving. She is hoping to get this completed as it makes it easier when she brings her places[place] [address] [facility] [address] Lucas, willing to complete this for patient? If so in folder. documented in this encounter Plan of Treatment Upcoming Encounters Date Type Specialty Care Team Description 06/08/2022 Appointment Neurology Parris Lucas MD [address] [facility] [address] [facility] [address] (Wo rk) documented as of this encounter Visit Diagnoses Not on filedocumented in this encounter Care Teams Scutcher Tender Relationship Specialty Start Date End Date Joanne Higuera, BONDING AND COMPOSITE FABRICATOR, ROLLER PRINTING SUPERVISOR PCP - General Nurse Practitioner 06/18/20 [address] [place] [address] documented as of this encounter
--- OUTSIDE RECORDS SUMMARY | 2021-12-14 22:52 | XMS_ITS | Encounter Summary ---
:1955 Author Organization [employer] Address [address] [place] [address] Care Team Providers Name Role Phone Prakash Pérez MD Primary Care Provider Reason for Visit Reason Onset Date Comments DIZZINESS 12/06/2016 Encounter Details Date Type Department Care Team Description 12/06/2016 Telephone [place] [facility] Irina Oreilly, RN [facility] [address] [place] [address] Social History Tobacco Use Types Packs/Day Years Used Date Smoking Tobacco: Never Sex Assigned at Date Recorded Not on file documented as of this encounter Nursing Notes Fior Daniel RN - 12/07/2016 9:03 AM CDT Call back to Darlene and reviewed instructions and stressed that if she goes up to BID that it is am and noon, not later in the day. She was able to repeat back correctly and I asked her to check her sitting and standing B/P's and bring to clinic visit. Irina Cobos RN - 12/06/2016 3:41 PM CDT Called and LM for pt to return call. Awaiting call back Parris Lucas MD - 12/06/2016 3:08 PM CDT Prescription sent for midodrine 5mg am and noon. OK to start with just a dose in the morning, and vee wants to start with just half a pill and see if that is enough, both of those things are fine. But she may end up needing twice a day doses. Levodopa will tend to lower the BP, and she is on a lot of levodopa-- Irina Cobos, RN - 12/06/2016 1:20 PM CDT Pt called earlier today and LM that she's getting dizzy and had some sitting BPs yesterday of 87/60 and 85/60 and wants to know what to do? Spoke with pt, she states her sitting BP this AM was 126/80 and she did not feel dizzy. She states the dizziness has been happening intermittently in the AM for the last 2-3 weeks. She states she probably only drinks 30-40 oz of fluid daily. She states the dizziness does not seem to correlate to pill time or meals. When it happens, it lasts just for a short time. Nurse spent a bit of time talking about moving slowly/resting when dizzy, increasing fluid intake to64oz/day, and also how to record BP (sitting and standing) for the next week and keeping a diary of dizziness symptoms. Patient verbalized her understanding and will call back with update. Dr. Lucas -any further recommendations? Please advise. thanks documented in this encounter Plan of Treatment Upcoming Encounters Date Type Specialty Care Team Description 06/08/2022 Appointment Neurology Parris Lucas MD [address] [facility] [address] [facility] [address] [address] (Wo rk) documented as of this encounter Visit Diagnoses Not on filedocumented in this encounter Care Teams Bottle Inspector Relationship Specialty Start Date End Date Prakash Pérez MD PCP - General 03/17/14 08/20/[address] [place] [address] documented as of this encounter
--- OUTSIDE RECORDS SUMMARY | 2021-12-14 22:52 | XMS_ITS | Encounter Summary ---
:1955 Author Organization [facility] Address [address] [place] [address] Care Team Providers Name Role Phone Prakash Pérez MD Primary Care Provider Reason for Visit Reason Comments Medication Refill Question Encounter Details Date Type Department Care Team Description 01/27/2017 Telephone [place] [facility] Irina Oreilly, Medication Refill [address] ruby RN Question [place], [place] [address] Social History Tobacco Use Types Packs/Day Years Used Date Smoking Tobacco: Never Sex Assigned at Date Recorded Not on file documented as of this encounter Nursing Notes Fior Daniel RN - 01/30/2017 9:17 AM CST Darlene has to change pharmacies to [facility] due to insurance and wondered if she needs all new prescriptions sent. I reviewed prescriptions and she should have refills until July 2017. She can simply call [facility] and ask them to transfer. I will change pharmacy in [facility]. UNTING ASSISTANT Irina Cobos RN - 01/27/2017 9:33 AM CST Pt called this AM and left msg that she's looking for refills but also wanting to switch pharmacies.Some of her Rxs have refills left and others dont, per pt. Pt wondering how to transfer Rxs. Attemped call to pt to discuss but only able to LM. Awaiting return call. UNTING ASSISTANT documented in this encounter Plan of Treatment Upcoming Encounters Date Type Specialty Care Team Description 06/08/2022 Appointment Neurology Parris Lucas MD [address] [place] [address] [facility] [address] [facility] [address] (Wo rk) documented as of this encounter Visit Diagnoses Not on filedocumented in this encounter Care Teams Gasoline Locomotive Crane Operator Relationship Specialty Start Date End Date Prakash Pérez MD PCP - General 03/17/14 08/20/[address] [place] [address] documented as of this encounter
--- OUTSIDE RECORDS SUMMARY | 2021-12-14 22:52 | XMS_ITS | Encounter Summary ---
:1955 Author Organization [employer] Address [address] [place] [address] Care Team Providers Name Role Phone Joanne Higuera APRN, FLORES Primary Care Provider [phone] Encounter Details Date Type Department Care Team Description 08/31/2020 Notes/Orders [place] [facility] Ranjana Cruz Parki nson's disease (HRC) (Primary Dx); Therapy PT Gait instability [address] [place] [phone] Social History Tobacco Use Types Packs/Day Years Used Date Smoking Tobacco: Never Sex Assigned at Date Recorded Not on file documented as of this encounter Progress Notes Ranjana Cruz PT - 08/31/2020 12:23 PM CDT PT assisted with adjusting and issuing new UStep walker for patient on 08/31/2020. Per request, added~10% tension to wheels which did improve positioning within wheels of walker. Obtained physician order, signed papers, and issued equipment with daughter present. documented in this encounter Plan of Treatment Upcoming Encounters Date Type Specialty Care Team Description 06/08/2022 Appointment Neurology Parris Lucas MD [address] [facility] [address] [facility] N [address] (Wo rk) documented as of this encounter Visit Diagnoses Diagnosis Parkinson's disease (HRC) - Primary Gait instability Abnormality of gait documented in this encounter Care Teams Shale Processing Technician Relationship Specialty Start Date End Date Joanne Higuera APRN, SEPARATIONS SCIENTIST PCP - General Nurse Practitioner 06/18/20 [address] [place], [place] [id number] documented as of this encounter
--- OUTSIDE RECORDS SUMMARY | 2021-12-14 22:52 | XMS_ITS | Encounter Summary ---
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); [place], [place] Neuro genic orthostatic hypotension (HRC); [id number] Dysphagia, unspecified type [phone] (Wo rk) Social History Tobacco Use Types Packs/Day Years Used Date Smoking Tobacco: Never Sex Assigned at Date Recorded Not on file documented as of this encounter Last Filed Vital Signs Vital Sign Reading Time Taken Comments Blood Pressure 126/70 12/25/2020 10:06 AM CDT Pulse 80 12/25/2020 10:06 AM CDT Temperature - - Respiratory Rate - - Oxygen Saturation - - Inhaled Oxygen Concentration - - Weight 67 kg (147 lb 11.2 oz) 12/25/2020 9:23 AM CDT Height - - Body Mass Index 22.46 12/26/2016 2:34 PM CDT documented in this encounter Patient Instructions Patient InstructionsParris Lucas MD - 12/25/2020 9:10 AM CDT Reduce carbidopa-levodopa 25/250 to 1/2 pills at 1pm and 5pm Hold midodrine for SBP>130 Call if problems as we make these changes Return in 6 months documented in this encounter Progress Notes Parris Lucas MD - 12/25/2020 9:10 AM CDT Images from the original note were not included. [address] [place] [address] FOLLOWUP EXAMINATION SUBJECTIVE Chief Complaint Patient presents with ??? Follow-up Current concerns and update: This visit was conducted: in person. The patient was in the clinic and the doctor was at [facility]'s [place]. The patient-facing part of the visit began at 9:32am and ended at 9:56. 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 She was doing pretty well at her last visit, and I did not make any med changes. She got a Ustep walker, which has worked well for her. She is taking sinemet 25/250 1 pill at 1-9-40-1-3-5-7 and a CR at bedtime. She also takes Nuplazid and remeron and lexapro, florinef and midodrine 10mg in the morning and 5mg at noon. She is having more help with dressing and laundry. She is getting a granola bar with the first dose of sinemet. She is losing her keys more frequently. She continues to have hallucinations of a person in her rocking chair, and a pair of people that shouldn't be there. She is having trouble using the remote on her lift chair. She uses aspercreme patches and massage for upper back pain. Past Medical History Update: No past medical history on file. Adverse Drug Reactions: Reviewed today and updated on Health Profile in [facility]. Allergies Allergen Reactions ??? Penicillins PN: LW Reaction: Fever ??? Sulfa Antibiotics PN: rash Current Medications: Reviewed today and updated on Health Profile in [facility]. Outpatient Medications Prior to Visit Medication Sig Dispense Refill ??? acetaminophen (TYLENOL) 500 MG tablet Take 500 mg by mouth three times a day. Plus 100mg bid PRN Maximum acetaminophen dose is 4000 mg in 24 hours ??? calcium carbonate (ANTACID CALCIUM EXTRA STRENGTH) 750 MG chewable tablet Chew and swallow 750 mg by mouth two times a day. ??? carbidopa-levodopa (SINEMET) 25-250 MG tablet Take 1 tab po at 7:05am, 9am, 11am, 1pm, 3:05pm, 5pm and 7pm 630 Tablet 3 ??? carbidopa-levodopa (SINEMETCR) 50-200 MG controlled release tablet Take 1 Tablet by mouth daily at bedtime. 9pm 90 Tablet 3 ??? cholecalciferol (VITAMIND3) 10 MCG (400 UNIT) tablet Take 200 Units by mouth daily. ??? escitalopram oxalate (LEXAPRO) 20 MG tablet Take 20 mg by mouth daily. ??? fludrocortisone (FLORINEF) 0.1 MG tablet Take 2 Tablets by mouth daily. (Patient taking differently: Take 0.2 mg by mouth daily. 7am) 180 Tablet 3 ??? lidocaine (ASPERCREME LIDOCAINE) 4 % patch Apply 1 Patch to skin daily. Leave on for up to 12 hours in a 24 hour period, then remove. ??? magnesium oxide (AKA MAG-OX) 500 MG tablet Take 500 mg by mouth daily. ??? midodrine (PROAMATINE) 5 MG tablet Take 2 tabs po at 7am; plus 1 tab at 11am ??? mirtazapine (REMERON) 15 MG tablet Take 1 Tablet by mouth daily at bedtime. 90 Tablet 2 ??? Multiple Vitamins-Minerals (MULTIVITAMIN ADULT OR) Take 1 Tablet by mouth Daily. ??? Pimavanserin Tartrate (NUPLAZID) 34 MG CAPS Take 34 mg by mouth daily. 90 Capsule 3 ??? sennosides-docusate sodium (SENOKOT S) 8.6-50 MG per tablet Take 2 Tablets by mouth daily. Plus 1 tab daily PRN ??? Docusate Calcium (STOOL SOFTENER OR) Take 2 Tablets by mouth daily at bedtime. ??? letrozole (AKA FEMARA) 2.5 MG tablet Take 2.5 mg by mouth daily at bedtime. No facility-administered medications prior to visit. Family History Update: No family history on file. Social History Update: She is in assisted living with increasing need for assistance Review of Systems: See HPI Falls since last visit? No falls, some near falls, uses a Ustep walker OBJECTIVE Vital Signs: (includes sitting and standing blood pressure) Vitals: 12/25/20 0923 12/25/20 0924 BP: (!) 202/96 (!) 167/91 Pulse: 71 Weight: 67 kg (147 lb 11.2 oz) Unified Parkinson's Disease Rating Scale (Part 2) Functional Score (maximum 52): not completed General: She appears quite debilitated from her disease Neurologic exam: She is pleasant, talks occasionally, but her daughter provides all of the information No tremor, a little bit of writhing dyskinesia, but mostly sits comfortably in the chair; posture allyson little slumped in the chair ASSESSMENT/PLAN Late stage Parkinson's disease with escalating dementia and hallucinations. We talked about her liftchair, we talked about going out to lunch rather than dinner, we talked about her increasing need for assistance. I will reduce the 1pm and 5pm sinemet doses to 1/2 pill, as she apparently has a lot ofdyskinesia in the afternoon. Her BP was quite high for us today, so I wrote to hold a midodrine dosefor SBP>130. I will see her back in the spring. Time: 3 minutes chart review and pre-visit charting 3 minutes post-clinic charting 24 minutes examination and counseling (time with the patient) 30 minutes TOTAL TIME (sum of the previous three numbers) Send a copy of note to: Joanne Higuera [facility], [address] [facility] [address] Parris Lucas MD 9:32 AM 12/25/2020 documented in this encounter Plan of Treatment Upcoming Encounters Date Type Specialty Care Team Description 06/08/2022 Appointment Neurology Parris Lucas MD [address] [place] [address] [place] [address] [address] (Wo rk) documented as of this encounter Visit Diagnoses Diagnosis Parkinson's disease (HRC) - Primary Mild cognitive impairment Mild cognitive impairment, so stated 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
--- OUTSIDE RECORDS SUMMARY | 2021-12-14 22:52 | XMS_ITS | Encounter Summary ---
:1955 Author Organization [facility] Address [address] [place] [address] Care Team Providers Name Role Phone Derek Norton MD Primary Care Provider Reason for Referral Therapies (Routine) - Closed Specialty Diagnoses / Procedures Referred By Contact Refer red To Contact Diagnoses Parkinson's disease ([facility]) Parris Lucas MD [address] [address] Referral ID Status Reason Start Date Expiration Date Visits Requ ested Visits Authorized [id number] Closed 08/21/2018 10/20/2018 1 1 Scheduling Instructions Your provider has recommended an appoint ment with [facility]. You may call [phone] to schedule your a ppointment. If you do not schedule an appointment within the next 1 to 3 busin ess days, we will call you to help arrange your appointment. We suggest you call [employer] about your coverage and benefits for this appointme nt. Consult/Transfer Care (Routine) - Closed Specialty Diagnoses / Procedures Referred By Contact Refer red To Contact Diagnoses Parkinson's disease ([facility]) Parris Lucas MD [id number] [place], [place] [address] Referral ID Status Reason Start Date Expiration Date Visits Requ ested Visits Authorized [id number] Closed 08/21/2018 11/20/2019 1 1 Scheduling Instructions Your provider has recommended an appoint ment with one of our Medication Management Pharmacists. You may call [phone] t o schedule your appointment. If you do not schedule an appointment within the next 1 to 3 business days, we will call you to help arrange your appointment. Reason for Visit Reason Comments Blood Pressure, low see list FALL Medication Questions wondering if the medication regimen could be simplified (difficulty with switching b ack and forth; and less to count) Encounter Details Date Type Department Care Team Description 08/21/2018 Office Visit [facility] Parris Lucas MD Parkinson's disease ([facility]) (Primary Dx); [address] Neur ogenic orthostatic hypotension (HRC); [address] Dyskinesia, drug-induced; [place], [place] Abnor mal weight loss; [id number] Mild cognitive impairment [phone] (Wo rk) Social History Tobacco Use Types Packs/Day Years Used Date Smoking Tobacco: Never Sex Assigned at Date Recorded Not on file documented as of this encounter Last Filed Vital Signs Vital Sign Reading Time Taken Comments Blood Pressure 128/77 08/21/2018 11:24 AM CDT Pulse 73 08/21/2018 11:24 AM CDT Temperature - - Respiratory Rate - - Oxygen Saturation - - Inhaled Oxygen Concentration - - Weight 62.9 kg (138 lb 9.6 oz) 08/21/2018 11:19 AM CDT Height - - Body Mass Index 21.07 12/26/2016 2:34 PM CDT documented in this encounter Patient Instructions Patient InstructionsParris Lucas MD - 08/21/2018 11:00 AM CDT Please call the [facility] nurse line for any questions, concerns or updates, . [facility] has a medication management program that helps patients manage their medications confidently. They have patients/families meet one-on-one with pharmacists to discuss current regimen and how to make it easier. Please call Emmie to set up appt [phone] See PT today about different kinds of walkers Change medication schedule: Sinemet 25/250 1 pill at 0-1-67-1-3-5-7 Sinemet CR 50/200 at 9pm Amantadine 1 pill at 7am only No more 25/100 sinemets Call if problems OK to talk with outreach and education social worker Maryse Murphy about accessing community services Return in 4 months documented in this encounter Progress Notes Parris Lucas MD - 08/21/2018 11:00 AM CDT Images from the original note were not included. [address] [place] [address] FOLLOWUP EXAMINATION SUBJECTIVE Chief Complaint Patient presents with ??? Blood Pressure, low see list ??? FALL ??? Medication Questions wondering if the medication regimen could be simplified (difficulty with switching back and forth; and less to count) Current concerns and update: This 63 yo pt returns for 4 month followup of Parkinson's disease. She is starting to have freezingof gait, and takes sinemet 25/100 2 pills every 2 hours, CR at bedtime, amantadine, remeron, mirtazapine, prn Xanax, and lexapro. She had been losing weight, but was perhaps beginning to brighten up after moving to a new living situation. SHe feels that things are going poorly in general. She gets anxious with changes in the routine. Shewill occasionally take Xanax for anxiety, but it sometimes makes her sleepy. Daughter is concerned that pt has been confused with the multiple different forms of levodopa and what to take when, and then anxious when she thinks she might have done it wrong. Past Medical History Update: No past medical history on file. Adverse Drug Reactions: Reviewed today and [facility]. Allergies Allergen Reactions ??? Penicillins PN: LW Reaction: Fever ??? Sulfa Antibiotics PN: rash Current Medications: Reviewed today and updated [facility]. Outpatient Medications Prior to Visit Medication Sig Dispense Refill ??? acetaminophen (AKA TYLENOL) 325 MG tablet Take 325-650 mg by mouth every 4 hours as needed for Pain. Maximum 4000mg per 24 hours ??? ALPRAZolam (XANAX) 0.25 MG tablet Take 1 Tablet by mouth every 24 hours as needed. 20 Tablet 3 ??? amantadine (SYMMETREL) 100 MG capsule Take 1 Cap by mouth two times a day. Morning and mid-afternoon 180 Cap 4 ??? aspirin 81 MG tablet Take 81 mg by mouth daily. ??? Calcium Carbonate 500 MG Take 1 tablet by mouth daily as needed for Heartburn. ??? carbidopa-levodopa (SINEMET) 25-100 MG tablet Take 2 tabs at [id number]-[id number]-5p-7p-9p 1080 Tablet 1 ??? carbidopa-levodopa (SINEMET) 25-250 MG tablet Take 1 Tablet by mouth two times a day. At 8am andnoon 180 Tablet 3 ??? carbidopa-levodopa (SINEMETCR) 50-200 MG controlled release tablet TAKE ONE TABLET BY MOUTH AT BEDTIME 90 Tablet 4 ??? cholecalciferol (AKA VITAMIN D3) 1000 UNITS tablet Take 2,000 Units by mouth daily (every 24 hours). ??? Docusate Calcium (STOOL SOFTENER OR) Take 1 tablet by mouth daily (every 24 hours). ??? escitalopram oxalate (AKA LEXAPRO) 10 MG tablet Take 20 mg by mouth Daily. ??? fludrocortisone (FLORINEF) 0.1 MG tablet Take 0.1 mg by mouth daily. ??? Glucosamine HCl-MSM (GLUCOSAMINE-MSM OR) Take 1 Tab by mouth Daily. ??? letrozole (AKA FEMARA) 2.5 MG tablet Take 2.5 mg by mouth daily (every 24 hours). ??? midodrine (PROAMATINE) 5 MG tablet 2 in the morning and one at noon 270 Tab 4 ??? mirtazapine (REMERON) 15 MG tablet TAKE ONE TABLET BY MOUTH AT BEDTIME 90 Tablet 4 ??? Multiple Vitamins-Minerals (MULTIVITAMIN ADULT OR) Take 1 tablet by mouth daily (every 24 hours). ??? omega-3 fatty acids (FISH OIL) 1000 MG capsule Take 1 g by mouth daily. ??? carbidopa-levodopa (SINEMET) 25-100 MG tablet 2 tablets by mouth q2hrs while awake, up to total 10 tablet daily 900 Tab 3 No facility-administered medications prior to visit. Family History Update: No family history on file. Social History Update: She is in a senior apt Review of Systems: Bladder issues, dry mouth, drooling, dizziness, anxiety, vivid dreams, falls, freezing of gait, usesa walker, muscle aches Falls since last visit? She has fallen several times, most recent was when she was waiting for the elevator OBJECTIVE Vital Signs: (includes sitting and standing blood pressure) Vitals: 08/21/18 1119 08/21/18 1124 BP: (!) 166/86 128/77 Pulse: 66 73 Weight: 62.9 kg (138 lb 9.6 oz) Unified Parkinson's Disease Rating Scale (Part 2) Functional Score (maximum 52): 16 General: She is thin, middle aged, and somewhat more impaired than in the past Neurologic exam: She is alert and interactive, but less able to provide useful information than in the past No dyskinesia, no tremor noted She rises from the chair slowly, has some freezing on initiation, but moves pretty well once she gets going, using the walker ASSESSMENT/PLAN Stage 3 parkinson's disease with emerging cognitive impairment. I will have her see PT today to lookat alternatives for a walker, and she may need to see OT the next time she comes in, to optimize theequipment and strategies for her care. We talked about having a traffic personnel supervisor, someone to help set up her pills, someone to check in. She has some activities 3 days/week, so needs some structure or check-in on the other days, perhaps. Her daughter is the primary support person, and she needs some backup. Her weight has been stable. Her orthostatic BP drop is pretty significant, almost 40 points for us today, but the sitting BP is high enough that the standing BP is not dangerously low. I will change her medication schedule by stopping the sinemet 25/100 and moving her to one sinemet 25/250 at 3-9-13-1-3-5-7 and a CR at 9pm, and amantadine just at 7am. I think this may seem like less medicine in the morning and more in the afternoon than what she is currently getting, but for simplicity it will be better to have a more uniform schedule. The cognitive impairment leads to anxiety withchanges in the routine, or a complex medication schedule. I will see her back in 4 months. Total time/ Counseling time: 25 min, 20 min discussion Send a copy of note to: Dr. Derek Norton, [address] , [place] [address] ?? Parris Lucas MD 11:27 AM 08/21/2018 documented in this encounter Plan of Treatment Upcoming Encounters Date Type Specialty Care Team Description 06/08/2022 Appointment Neurology Parris Lucas MD [address] [facility] [address] [facility] [address] (Wo rk) Scheduled Referrals Name Type Priority Associated Diagnoses Order S chedule Pharmacy-Medication Referral Routine Parkinson's disease O rdered: 08/21/2018 Therapy Management ([facility]) Physical Therapy Referral Routine Parkinson's disease Orde red: 08/21/2018 ([facility]) documented as of this encounter Visit Diagnoses Diagnosis Parkinson's disease ([facility]) - Primary Neurogenic orthostatic hypotension ([facility]) Dyskinesia, drug-induced Lack of coordination Abnormal weight loss Loss of weight Mild cognitive impairment Mild cognitive impairment, so stated documented in this encounter Care Teams Senior Solutions Architect Relationship Specialty Start Date End Date Derek Norton MD PCP - General Family Practice 08/21/18 06/17/20 [facility] [address] [facility] [place] [address] documented as of this encounter
--- OUTSIDE RECORDS SUMMARY | 2021-12-14 22:52 | XMS_ITS | Encounter Summary ---
:1955 Author Organization [employer] Address [address] [place] [address] Care Team Providers Name Role Phone Derek Norton MD Primary Care Provider Reason for Visit Reason Comments MEDICATION THERAPY MANAGEMENT Encounter Details Date Type Department Care Team Description 09/17/2018 Office Visit [facility] Anne Marie Marshall, Polypharmacy (Primary Medication Managemen t PharmD Dx) [address] [facility] [address] [facility] [address] [place] [address] Social History Tobacco Use Types Packs/Day Years Used Date Smoking Tobacco: Never Sex Assigned at Date Recorded Not on file documented as of this encounter Patient Instructions Patient InstructionsAnne Marie Marshall PharmD - 09/17/2018 1:00 PM CDT MEDICATION COMMENTS FROM TODAY: Care Plan Suggestions: Continue current medications Follow up: As needed I offer these suggestions to her and her medical providers with the understanding that I may not fully understand her past medical history and the complexity of her health conditions. I suggested Darlene make a follow-up appointment with her provider(s) to discuss these suggestions. Darlene should make no changes without the approval of her physician. By helping you be more active in your healthcare and medication management, we hope to improve your quality of life! Any questions or concerns please call the clinic, or contact me via [employer]. Anne Marie Marshall, Pharm.D. Medication Management Pharmacist [facility] [phone] documented in this encounter Progress Notes Anne Marie Marshall PharmD - 09/17/2018 1:00 PM CDT Darlene Drew is a 63 y.o. old female seen today for follow up. Patient???s main concern today ispolypharmacy/adherence. Social History Changes: None. Patient is here again with her daughter Monisha. Adherence: # of missed doses in the past week: 0 Patient has come up with a better system to manage medications. Daughter Monisha the has a list of eachmedication and the time of dated take it. Monisha sets up her mother's medications every week. Patient has a pill container to take medications morning afternoon and bedtime. She has a separate pill container to carry with her that contains the Sinemet for dosing intervals at 9:00 a.m., 1:00 p.m., 3:00 p.m., 5:00 p.m. Sinemet doses at 7:00 a.m., 11:00 a.m., and 7:00 p.m. are placed in the a different pill container with her other medications. Supplements: pt takes a multivitamin daily containing a 1000 units of vitamin-D and 500 mg calcium. She takes an additional 500 mg of calcium daily in the form of Tums. Patient discontinued glucosamineand fish oil. CV Protection: Patient takes aspirin 81 mg daily. Constipation: Patient takes docusate 200 mg at bedtime. 200 mg dose has been working better for her. Breast Cancer: pt takes letrozole 2.5 mg daily at 9:00 p.m. with her other evening meds. Orthostatic Hypotension: Patient takes fludrocortisone 0.1 mg daily and midodrine 10 mg in the morning and 5 mg at 11:00 a.m. with her Sinemet dose. Patient denies lightheadedness, dizziness, or any falls. Depression / Anxiety: pt takes mirtazapine 15 mg at bedtime, escitalopram 20 mg daily, and alprazolam 0.25 mg if needed approximately once a month. She has started taking escitalopram on a regular basis, prior to this she was using it only as needed. Daughter reports that she can see a change in her mother's mood, she is less anxious. Parkinson's: pt taking sinemet 25/250 mg at 7 am, 9 am, 11 am, 1 pm, 3 pm, 5 pm, and 7 pm, Sinemet CR 50/200 at 9 PM and amantadine 100 mg at 7 AM. Objective There were no vitals taken for this visit. BP Readings from Last 3 Encounters: 08/21/18 128/77 03/16/18 124/70 09/12/17 99/65 Assessment Adherence/polypharmacy: Improved. Daughter Monisha has a list of medications with timing, sets up mother's pill container, and has dosing intervals that line up evenly with Sinemet dosing. This system is working quite well. Patient is less anxious; she no longer worries about taking the wrong medication or missing doses. Plan: Continue current medications Follow up: As needed Total time spent with patient 30 30 minutes. Updated Mlog med list and reviewed medications including indications with patient. Anne Marie Marshall PharmD Medication Management [place] [facility] Follow-up Med [facility] appointment scheduled: no Recipient of visit: Patient Medicare CI: yes # of DTPs: 0 # of DTPs resolved: 0 Special Populations (HOSDC, TCU, ED/Falls, ESRD, Pillbox): no documented in this encounter Plan of Treatment Upcoming Encounters Date Type Specialty Care Team Description 06/08/2022 Appointment Neurology Parris Lucas MD [address] [facility] [address] [facility] [address] [address] (Wo rk) documented as of this encounter Visit Diagnoses Diagnosis Polypharmacy - Primary Issue of repeat prescriptions documented in this encounter Care Teams Ed Educational Aide Relationship Specialty Start Date End Date Derek Norton MD PCP - General Family Practice 08/21/18 06/17/20 [facility] [address] [place] [address] documented as of this encounter
--- OUTSIDE RECORDS SUMMARY | 2021-12-14 22:52 | XMS_ITS | Encounter Summary ---
:1955 Author Organization [employer] Address [address] [place] [address] Care Team Providers Name Role Phone Derek Norton MD Primary Care Provider Encounter Details Date Type Department Care Team Description 12/17/2018 Notes/Orders [facility] Diana Kinsey PT [address] [place] [address] [place], [place] [id number] Social History Tobacco Use Types Packs/Day Years Used Date Smoking Tobacco: Never Sex Assigned at Date Recorded Not on file documented as of this encounter Progress Notes Diana Kinsey PT - 12/17/2018 1:04 PM CDT Encounter Date: 12/17/2018 Pt : 1955 [facility] Discharge Summary Patient was evaluated on 08/22/2018 and a treatment plan for further care was established. Pt attended 1-2 recommended follow up visits. There are no further visits scheduled at this time and patient is currently considered discharged from therapy. Will need new orders from physician in order to return to therapy as current plan of care has now . Standardized test results and goal achievement: Please refer to the initial evaluation for any standardized tests performed as well as the planned goals of therapy treatment. Unable to provide follow up test results as patient did not return to reassess. Episode/Discharging Therapist: Diana Kinsey PT, DPT License #[id number] documented in this encounter Plan of Treatment Upcoming Encounters Date Type Specialty Care Team Description 06/08/2022 Appointment Neurology Parris Lucas MD [address] [facility] [address] [place] [address] [address] (Wo rk) documented as of this encounter Visit Diagnoses Not on filedocumented in this encounter Care Teams Paper Control Clerk Relationship Specialty Start Date End Date Derek Norton MD PCP - General Family Practice 08/21/18 06/17/20 [facility] [address] [place] [address] documented as of this encounter
--- OUTSIDE RECORDS SUMMARY | 2021-12-14 22:52 | XMS_ITS | Encounter Summary ---
:1955 Author Organization [facility] Address [address] [place] [address] Care Team Providers Name Role Phone Derek Norton MD Primary Care Provider Reason for Visit Reason Comments EKG Encounter Details Date Type Department Care Team Description 09/12/2019 Telephone [facility] Chelsie Toribio RN EKG [address] [place] [phone] Social History Tobacco Use Types Packs/Day Years Used Date Smoking Tobacco: Never Sex Assigned at Date Recorded Not on file documented as of this encounter Nursing Notes Chelsie Toribio RN - 09/17/2019 8:55 AM CDT Mailed samples to Jessica's home address. Parris Lucas MD - 09/16/2019 5:06 PM CDT signed Chelsie Toribio RN - 09/16/2019 4:03 PM CDT Spoke with Monisha iman Jessica today. They are wondering about getting more Nuplazid samples, they only have one week. She will also be moving to assisted living Oct.06 or . Please sign pended order for Nuplazid samples (2 weeks). Chelsie Toribio RN - 09/13/2019 3:14 PM CDT [facility] Parris [facility] MD - 09/13/2019 12:51 PM CDT signed Chelsie Toribio RN - 09/13/2019 12:32 PM CDT Spoke with daughter Monisha and told her okay to start medication this evening. Discussed process that we will send over the signed [facility] paperwork, so she maybe getting a call to discuss shipment from speciality pharmacy. Dr. Lucas- Please sign pended rx and we will fax along with [facility] paperwork. Parris Lucas MD - 09/13/2019 6:41 AM CDT EKG is fine, OK to start the medicine Fior Daniel RN - 09/12/2019 4:11 PM CDT Mariann Bearden would like a call when the EKG is read and so she can start the medication. I left her a message that they were received and placed in folder for review. Unlikely we will be able to call her back in the next 15 minutes. We will call her tomorrow. Parris Lucas MD - 09/12/2019 3:58 PM CDT Ok thanks Chelsie Toribio RN - 09/12/2019 3:01 PM CDT Received fax from [facility] and clinic with EKG reading. Placed in folder for review. documented in this encounter Plan of Treatment Upcoming Encounters Date Type Specialty Care Team Description 06/08/2022 Appointment Neurology aPrris Lucas MD [address] [facility] [address] [facility] [address] [address] (Wo rk) documented as of this encounter Visit Diagnoses Not on filedocumented in this encounter Care Teams Mallet Cutter Relationship Specialty Start Date End Date Derek Norton MD PCP - General Family Practice 08/21/18 06/17/20 [facility] [address] [place] [address] documented as of this encounter
--- OUTSIDE RECORDS SUMMARY | 2021-12-14 22:52 | XMS_ITS | Encounter Summary ---
:1955 Author Organization [employer] Address [address] [place] [address] Care Team Providers Name Role Phone Prakash Pérez MD Primary Care Provider Reason for Visit Reason Comments Refill carb/levo Encounter Details Date Type Department Care Team Description 07/13/2018 Refill [facility] Parris Lucas MD Refill (carb/levo) [address] [place], [place] [address] [address] [facility] [address] (Wo rk) Social History Tobacco Use Types Packs/Day Years Used Date Smoking Tobacco: Never Sex Assigned at Date Recorded Not on file documented as of this encounter Nursing Notes Chelsie Toribio RN - 07/13/2018 4:00 PM CDT Received refill request from pharmacy. For carb/levo 25/100, up to 10 tabs per day. Called Jessica to confirm how she is taking this strength. At last visit she was to swap her 8a and 12p dose to with at 25/250. She states she takes the 25/100s at [id number] Please sign pended Rx. Thanks. documented in this encounter Plan of Treatment Upcoming Encounters Date Type Specialty Care Team Description 06/08/2022 Appointment Neurology Parris Lucas MD [address] [facility] [address] [facility] [address] [address] (Wo rk) documented as of this encounter Visit Diagnoses Not on filedocumented in this encounter Care Teams End Maker Relationship Specialty Start Date End Date Prakash Pérez MD PCP - General 03/17/14 08/20/[address] [place] [address] documented as of this encounter
--- OUTSIDE RECORDS SUMMARY | 2021-12-14 22:52 | XMS_ITS | Encounter Summary ---
:1955 Author Organization [employer] Address [address] [place] [address] Care Team Providers Name Role Phone Derek Norton MD Primary Care Provider Encounter Details Date Type Department Care Team Description 02/06/2020 Notes/Orders [facility] Irina Oreilly, RN [address] [place], [place] [address] Social History Tobacco Use Types Packs/Day Years Used Date Smoking Tobacco: Never Sex Assigned at Date Recorded Not on file documented as of this encounter Progress Notes Irina Oreilly, RN - 02/06/2020 8:[address] Lucas received a fax from [facility] stating that the pt had a fall on AM of 01/30. She lost balance while cleaning and fell onto her buttocks. No injury. Pt had 5 falls in January, and a total of 11 falls since admission to [facility]. Pt non-compliant w/ having walker near her. Nurse at [facility] has provided education but pt continues to not follow safety precautions. It states, She expresses that she wants to remain as independent as much as possible. She verbalizes understanding that a fall could result in severe injury or even . She smiles and laughs when I have discussed the risks. She is currently receiving PT. Dr. Lucas acknowledged that update was received on 02/05/20. Faxed over Dr. Lucas's acknowledgement to the facility. Original sent to [facility]. AND AND CONTROL SYSTEMS INTEGRATOR documented in this encounter Plan of Treatment Upcoming Encounters Date Type Specialty Care Team Description 06/08/2022 Appointment Neurology Parris Lucas MD [address] [facility] [address] [place] [address] [address] (Wo rk) documented as of this encounter Visit Diagnoses Not on filedocumented in this encounter Care Teams Entertainment Lawyer Relationship Specialty Start Date End Date Derek Norton MD PCP - General Family Practice 08/21/18 06/17/20 [facility] [address] [place] [address] documented as of this encounter
--- OUTSIDE RECORDS SUMMARY | 2021-12-14 22:52 | XMS_ITS | Encounter Summary ---
:1955 Author Organization [employer] Address [address] [place] [address] Care Team Providers Name Role Phone Derek Norton MD Primary Care Provider Reason for Visit Reason Comments Samples Nuplazid Encounter Details Date Type Department Care Team Description 08/29/2019 Notes/Orders [place] [facility] Chelsie Toribio, RN [address] [place], [place] [address] Social History Tobacco Use Types Packs/Day Years Used Date Smoking Tobacco: Never Sex Assigned at Date Recorded Not on file documented as of this encounter Progress Notes Chelsie Toribio RN - 08/29/2019 1:50 PM CDT Samples of Nuplazid give (1 week supply). Will fax EKG order to [facility]. Told Jessica and her daughter not to start until they get the okay from Dr. Lucas to start drug. Will submit Nuplazid paperwork once EKG is clear. Paperwork in Nuplazid folder. Called [facility] and asking for fax number to fax EKG order. Faxed order to [facility] FAX: [phone]. Asked them to fax us back results. documented in this encounter Plan of Treatment Upcoming Encounters Date Type Specialty Care Team Description 06/08/2022 Appointment Neurology Parris Lucas MD [address] [facility] [address] [facility] [id number] (Wo rk) documented as of this encounter Visit Diagnoses Not on filedocumented in this encounter Care Teams Pie Maker Machine Relationship Specialty Start Date End Date Derek Norton MD PCP - General Family Practice 08/21/18 06/17/20 [facility] [address] [place] [address] documented as of this encounter
--- OUTSIDE RECORDS SUMMARY | 2021-12-14 22:52 | XMS_ITS | Encounter Summary ---
:1955 Author [facility] Address [address] [place] [address] Care Team Providers Name Role Phone Prakash Pérez MD Primary Care Provider Reason for Visit Reason Comments Refill midodrine, amantadine, alpra zolam, carb/levo IR DIZZINESS intermittent concern - does not drink much fluid. Nurse education provided. Encounter Details Date Type Department Care Team Description 09/12/2017 Office Visit [place] [facility] Parris Lucas MD Parkinson's disease [facility] [address] ([facility] ) (Primary Dx) [address] [place] [phone] (Wo rk) Social History Tobacco Use Types Packs/Day Years Used Date Smoking Tobacco: Never Sex Assigned at Date Recorded Not on file documented as of this encounter Last Filed Vital Signs Vital Sign Reading Time Taken Comments Blood Pressure 99/65 09/12/2017 10:14 not symptomatic today AM CDT Pulse 78 09/12/2017 10:14 AM CDT Temperature - - Respiratory Rate - - Oxygen Saturation - - Inhaled Oxygen - - Concentration Weight 64.5 kg (142 lb 4.8 09/12/2017 10:12 oz) AM CDT Height - - Body Mass Index 21.64 12/26/2016 2:34 PM CDT documented in this encounter Patient Instructions Patient InstructionsParris Lucas MD - 09/12/2017 10:30 AM CDT Please call the [facility] nurse line for any questions, concerns or updates, . Irina Cobos, VIOLA Please bring a copy of your health care directive to your next appointment. Thank you! Increase the morning dose of midodrine to 10mg Have fun! Return in 6 months documented in this encounter Progress Notes Parris Lucas MD - 09/12/2017 10:30 AM CDT [address] [place] [address] FOLLOWUP EXAMINATION SUBJECTIVE Chief Complaint Patient presents with ??? Refill midodrine, amantadine, alprazolam, carb/levo IR ??? DIZZINESS intermittent concern - does not drink much fluid. Nurse education provided. Current concerns and update: This 62 yo pt returns for 4 month followup of Parkinson's disease. At the last visit, she was moving out of the farmhouse, and I elected not to make any major med changes because of the psychosocial changes that were going on. She is taking sinemet 25/100 2 pills every 2 hours and has dyskinesia and amantadine 100mg bid to control the (not surprising) dyskinesia she has as a result. She is also taking remeron, lexapro, and midodrine. She was not able to move well enough when she tried to reduce thelevodopa slightly, had more tremor. She is enjoying being in the apt, the house is just about ready to go on the market. Her BP still runs low, and she doesn't drink enough fluids. Her daughter is here and is keeping a pretty close eye on her, supportive. Past Medical History Update: No past medical history on file. Adverse Drug Reactions: Reviewed today and updated on Health Profile in [facility]. Allergies Allergen Reactions ??? Penicillins PN: LW Reaction: Fever ??? Sulfa Antibiotics PN: rash Current Medications: Reviewed today and updated on Health Profile in [facility]. Outpatient Medications Prior to Visit Medication Sig Note Dispense Refill ??? acetaminophen (AKA TYLENOL) 325 MG tablet Take 325-650 mg by mouth every 4 hours as needed for Pain. Maximum 4000mg per 24 hours ??? ALPRAZolam (XANAX) 0.25 MG tablet Take 1 Tab by mouth every 24 hours as needed. 20 Tab 3 ??? amantadine (SYMMETREL) 100 MG capsule Take 1 Cap by mouth two times a day. Morning and mid-afternoon 180 Cap 4 ??? aspirin 81 MG tablet Take 81 mg by mouth daily. ??? Calcium Carbonate 500 MG Take 1 tablet by mouth daily as needed for Heartburn. ??? carbidopa-levodopa (SINEMETCR) 50-200 MG controlled release tablet One at bedtime 90 Tab 4 ??? cholecalciferol (AKA VITAMIN D3) 1000 UNITS tablet Take 2,000 Units by mouth daily (every 24 hours). ??? Docusate Calcium (STOOL SOFTENER OR) Take 1 tablet by mouth daily (every 24 hours). ??? escitalopram oxalate (AKA LEXAPRO) 10 MG tablet Take 20 mg by mouth Daily. ??? Glucosamine HCl-MSM (GLUCOSAMINE-MSM OR) Take 1 Tab by mouth Daily. ??? letrozole (AKA FEMARA) 2.5 MG tablet Take 2.5 mg by mouth daily (every 24 hours). ??? midodrine (PROAMATINE) 5 MG tablet Take 1 Tab by mouth two times a day. Am and noon 180 Tab 3 ??? mirtazapine (REMERON) 15 MG tablet Take 1 Tab by mouth daily at bedtime. 90 Tab 4 ??? Multiple Vitamins-Minerals (MULTIVITAMIN ADULT OR) Take 1 tablet by mouth daily (every 24 hours). ??? omega-3 fatty acids (FISH OIL) 1000 MG capsule Take 1 g by mouth daily. ??? carbidopa-levodopa (SINEMET) 25-100 MG tablet 2 pills every 2 hours up to 10 doses/day 06/05/2017:Trying to take 1.5tabs for last 2-3 doses. 1800 Tab 4 No facility-administered medications prior to visit. Family History Update: No family history on file. Social History Update: Now lives in an apt, enjoying the freedom and activities. Going to [place] for a month soon Review of Systems: Dizzness, dribbling, dry mouth, anxiety, freezing of gait, uses a walker Falls since last visit? No falls, sometimes has freezing of gait OBJECTIVE Vital Signs: (includes sitting and standing blood pressure) Vitals: 07/10/18 1012 09/12/17 1014 BP: 121/73 99/65 Pulse: 81 78 Weight: 64.5 kg (142 lb 4.8 oz) Unified Parkinson's Disease Rating Scale (Part 2) Functional Score (maximum 52): 16 General: She is well dressed and groomed Neurologic exam: She has mild head waving dyskinesia Intermittent R arm tremor Able to get up from the chair on her own, a little wobbly on her feet, but turned to sit safely ASSESSMENT/PLAN Stage 3 Parkinson's disease, now settled into her new living situation and doing pretty well. We talked about drinking more fluids, and I will increase the morning midodrine dose to 2 pill (10mg) to try to address low blood pressure. She did not tolerate a reduction in levodopa, so will need to put upwith a little dyskinesia. I will see her back in 6 months. They asked about marijuana, for which Parkinson's disease is not an indication in [place]. Total time/ Counseling time: 15 min, 10 min discussion Send a copy of note to: Dr. Derek Norton, [address] [place] [address] Parris Lucas MD 10:25 AM 09/12/2017 documented in this encounter Plan of Treatment Upcoming Encounters Date Type Specialty Care Team Description 06/08/2022 Appointment Neurology Parris Lucas MD [address] [facility] [address] [facility] N [address] (Wo rk) documented as of this encounter Visit Diagnoses Diagnosis Parkinson's disease (HRC) - Primary documented in this encounter Care Teams Director Sales And Marketing Relationship Specialty Start Date End Date Prakash Pérez MD PCP - General 03/17/14 08/20/18 [address] [place] [address] documented as of this encounter
--- OUTSIDE RECORDS SUMMARY | 2021-12-14 22:52 | XMS_ITS | Encounter Summary ---
:1955 Author Organization [facility] Address [address] [place] [address] Care Team Providers Name Role Phone Prakash Pérez MD Primary Care Provider Encounter Details Date Type Department Care Team Description 01/09/2017 Notes/Orders [place] [facility] The rapy Supriya Menendez, [address] ruby [place]DOWN [place], [place] [address] [address] [phone] [place] [address] (Wo rk) Social History Tobacco Use Types Packs/Day Years Used Date Smoking Tobacco: Never Sex Assigned at Date Recorded Not on file documented as of this encounter Progress Notes Supriya Menendez SLP - 01/09/2017 11:42 AM CST [facility] Parkinson's [facility] - Discharge Note Client scheduled additional speech therapy appointments as recommended at the time of initial evaluation on 09/26/16; but she then cancelled all scheduled Speech and PT appointments, opting out of treatment at this time. Certification period is now . Will close out speech chart at this time. If the client would like to pursue treatment in the future, a new speech evaluation and treatment order should be obtained from the physician. Supriya Menendez CCC-KNOCKDOWN MAN 11:44 AM 01/09/2017 L MAKER documented in this encounter Plan of Treatment Upcoming Encounters Date Type Specialty Care Team Description 06/08/2022 Appointment Neurology Parris Lucas MD [address] [place] [address] [facility] [address] [place] [address] (Wo rk) documented as of this encounter Visit Diagnoses Not on filedocumented in this encounter Care Teams Senior Instructional Designer Relationship Specialty Start Date End Date Prakash Pérez MD PCP - General 03/17/14 08/20/[address] [place] [address] documented as of this encounter
--- OUTSIDE RECORDS SUMMARY | 2021-12-14 22:52 | XMS_ITS | Encounter Summary ---
:1955 Author Organization [employer] Address [address] [place] [address] Care Team Providers Name Role Phone Prakash Pérez MD Primary Care Provider Reason for Visit Reason Comments Nausea LIGHTHEADEDNESS Encounter Details Date Type Department Care Team Description 06/05/2017 Telephone [place] [facility] Fior Daniel, Nausea; LIGHTHEADEDNESS [address] ruby RN [place] [phone] Social History Tobacco Use Types Packs/Day Years Used Date Smoking Tobacco: Never Sex Assigned at Date Recorded Not on file documented as of this encounter Nursing Notes Parris Lucas MD - 06/05/2017 11:05 AM CDT I agree with those recommendations Fior Daniel RN - 06/05/2017 10:28 AM CDT Jessica called stating she woke up this morning feeling a little nauseated and lightheaded. Her sitting B/P was 118/68 and standing 11/58. She is on Midodrine twice daily. She had an active day yesterday with Easter and may be a little tired and perhaps didn't drink enough liquids. I told her to rest this morning and try to push fluids, eat a little something salty. Be cautious when getting up and asked her to get a few orthostatic B/P readings over the next few days and call back if symptoms persist. documented in this encounter Plan of Treatment Upcoming Encounters Date Type Specialty Care Team Description 06/08/2022 Appointment Neurology Parris Lucas MD [address] [place] [address] [facility] [address] [facility] JANIE [facility] [address] (Wo rk) documented as of this encounter Visit Diagnoses Not on filedocumented in this encounter Care Teams Feller Machine Operator Relationship Specialty Start Date End Date Prakash Pérez MD PCP - General 03/17/14 08/20/[address] [place] [address] documented as of this encounter
--- OUTSIDE RECORDS SUMMARY | 2021-12-14 22:52 | XMS_ITS | Encounter Summary ---
:1955 Author Organization [facility] Address [address] [place] [address] Care Team Providers Name Role Phone Derek Norton MD Primary Care Provider Reason for Visit Reason Comments COVID Screening Encounter Details Date Type Department Care Team Description 08/28/2019 Telephone [place] [facility] Parris Lucas MD COVID Screening [address] [place], [place] [address] [address] [facility] N [id number] (Wo rk) Social History Tobacco Use Types Packs/Day Years Used Date Smoking Tobacco: Never Sex Assigned at Date Recorded Not on file documented as of this encounter Nursing Notes Nichole Hernández - 08/28/2019 9:55 AM CDT Completed COVID19 symptom screening questions. All questions answered no documented in this encounter Plan of Treatment Upcoming Encounters Date Type Specialty Care Team Description 06/08/2022 Appointment Neurology Parris Lucas MD [address] [facility] [address] [facility] N [id number] (Wo rk) documented as of this encounter Visit Diagnoses Not on filedocumented in this encounter Care Teams Sewing Machine Operator Semiautomatic Relationship Specialty Start Date End Date Derek Norton MD PCP - General Family Practice 08/21/18 06/17/20 [facility] [address] [place] [address] documented as of this encounter
--- OUTSIDE RECORDS SUMMARY | 2021-12-14 22:52 | XMS_ITS | Encounter Summary ---
:1955 [address] [facility] Address [address], [place] [address] Care Team Providers Name Role Phone Joanne Higuera APRN, CNP Primary Care Provider [phone] Reason for Visit Reason Comments Balance/gait Dysfunction Therapies (Routine) - Closed Specialty Diagnoses / Procedures Referred By Contact Refer red To Contact Diagnoses Parkinson's disease (HRC) Parris Lucas MD [address] [facility] [address] [place], [place] [address] Referral ID Status Reason Start Date Expiration Date Visits Requ ested Visits Authorized [id number] Closed 06/18/2020 06/18/2021 1 1 Encounter Details Date Type Department Care Team Description 08/26/2020 Office Visit [place] [facility] Lilly Cunningham on's disease (HRC) (Primary Dx); Therapy RALPH [place] Gait instability; [address] Histo ry of falling; Drive Dr Santi[place]oting gait [place], [place] [phone] Social History Tobacco Use Types Packs/Day Years Used Date Smoking Tobacco: Never Sex Assigned at Date Recorded Not on file documented as of this encounter Progress Notes Diann Cunningham PT - 08/26/2020 11:00 AM CDT Visit Date: 08/26/2020 Patient : 1955 Physical Therapy Parkinson Evaluation/Plan of Care [facility] Initial Certification Period: 08/26/2020 to 11/25/20 Referring Provider: Dr. Parris Lucas Visit Diagnosis/ICD: 1. Parkinson's disease (HRC) 2. Gait instability 3. History of falling 4. Festinating gait Precautions: Fall precautions. orthostatic hypotension Onset/Referral Date: 08/2020 Reason for Referral: Patient wants a trial of the UStep walker Orders: Evaluate and treat. [facility] [place] Services: None. Exacerbation Date: 08/04/2020 Last Referring MD Visit: 06/18/2020 Insurance: Medicare SUBJECTIVE Patient's Therapy Goal: wants to see if the UStep walker is more stable and appropriate for her to prevent falls Current Comorbidities: MCI, residual L shoulder pain from old injury Personal Factors: MCI and hallucinations Mobility Limitations Reported: unsteady gait with falls; tendency to cross her feet; propulsive gait; walker gets out too far ahead of her Balance/Falls in past 6 months: Many; increased freq this winter; Better lately with approx 3 falls in past few months. They are related to propulsive gait and hurrying; also crossing her feet and tiptoeing Dyskinesia Reported - United Parkinson's Disease Rating Scale (UPDRS): Yes. Pain: chronic L shoulder pain since fall-related injury several months ago Past Medical History: Late-Stage Parkinson's disease diagnosed 2005. MCI and hallucinations. orthostatic hypotension. Assistive Devices: 4 wheeled walker. Support System: accompanied by her daughter Monisha who lives in [place] Living Situation: Assisted living facility in [place] Formal Exercises: limited during pandemic; classes just started up again in her building Communication: Dysarthria. Occupation: Retired. History Complexity: Moderate Complexity: 1-2 personal factors and/or comorbidities that impact plan of care: OBJECTIVE Behavioral Characteristics: Alert. Cooperative. Pleasant. Inattentive to gait; easily distracted Motor Function at Time of Eval: On - best level of functioning on medication. Body Bradykinesia and Hypokinesia: (UPDRS)(Combining slowness, hesitancy, decreased armswing, small amplitude and poverty of movement in general). 3 = Moderate slowness, poverty or small amplitude of movement. Dyskinesia (at time of evaluation): Moderately interferes with function. Affecting head, trunk and limbs. Dystonic posturing of one leg crossed over the other and up on the toes. This impacts her stability Range of Motion: Grossly within normal limits. Muscle Strength: Left Lower Extremity: minimal impaired (4/5 grossly). Right Lower Extremity: minimal impaired (4/5 grossly). Transfers: Sit to Stand: Difficulty from low or soft surfaces. Functional Testing: Timed Up and Go Test (TUG): - 23.47 seconds with 4 wheeled walker (>12 seconds indicates higher risk of falls in older community dwelling adults - Mary, 2016) Five Times Sit to Stand Test (FTSST): No Arms - 17.41 seconds. (>15 seconds w/o arms indicates increased risk of falls in Parkinson's - Francisco, 2011) Gait: Assistive Devices: 4 wheeled walker with hand brakes and seat. Assistance Required: Supervision. General Gait Description: dyskinetic with walker fishtailing side to side. Easily distracted by items in the environment which negatively impacts gait stability. Walker too far ahead. Propulsive gait pattern. Gait Velocity: 0.74 m/s Norm Data 40-49 50-59 60-69 70-79 80-99 MEN(m/s) 1.43 1.43 1.34 1.26 0.97 WOMEN (m/s) 1.39 1.31 1.24 1.13 0.94 *Above scores indicate average for community dwelling adults (Yulissa, 2011) Examination of Body System Complexity: Moderate Complexity: Addressed 3 elements from body structures and functions (see above), and/or functional limitations as noted below. Clinical Presentation Complexity: Moderate Complexity: Evolving Clinical Presentation with changing clinical characteristics Treatment Today: Physical Therapy Evaluation - 25 minutes Gait Training - 30 minutes Trial of UStep walker. Instructed in use of reverse brakes. Initially tried without adjusting wheel resistance. She was able to stay closer to the walker but took shorter steps compared to when using the 4 wheeled walker. Added low wheel resistance and she was better able to control walker/upright posture and take larger amplitude steps. She exhibited more control over the walker vs her 4 wheeled walker and appeared less propulsive. Also tried adding weight for stability to her current 4 wheeled walker; tried 7 lb in basket. The UStep appeared to be more beneficial for stability. Daughter expressed concerns over how this would work in patient's home environment and wondering if she could have a short trial period and the assisted living staff could supervise and give feedback about effectiveness of the UStep vs her current 4 wheeled walker. Issued loaner UStep for home trial until next Monday. Added low wheel resistance per today's trial. Daughter will call and give feedback as to the effectiveness of the UStep. ASSESSMENT Therapist Impression: Jessica Drew is a 65 y/o woman with later-stage Parkinson's disease with propulsive and dyskinetic gait with history of frequent falls. Her current walker may not offer the stability she requires. She came for a trial of UStep walker to see if the unique features of this walker canoffer more gait stability to reduce fall risk. Physical Therapy Practice Pattern: Primary prevention/risk reduction for loss of balance and falling. (5A) Impairments: Balance deficits. Bradykinesia. Gait pattern changes. Hypokinesia. Muscle weakness. Propulsion. Functional Limitations: Gait instabiltiy. Falls risk. Possible Barriers to Goal Achievement: None apparent. Rehab Prognosis: Good Overall Clinical Decision Complexity: Moderate Complexity PLAN Planned Treatment: this may be a one time visit with walker issue pending. Potential follow up visits if indicated. Frequency/Duration: 1-2 visits Discharge Plan: Satisfactory goals are achieved. Estimated Discharge: 90 days. Consent: Results of evaluation were reviewed with patient. Patient was receptive to treatment plan and participated in setting goals. Risks, benefits and alternatives to treatment were reviewed. Expected Functional Outcomes: Patient to demo safe and independent use of the UStep walker with improved stability to reduce fall risk in 1-2 visits. Total Treatment: 55 minutes The diamond sizer and sorter is completed by the therapist and the referring clinician's electronic signature certifies medical necessity for the plan above. documented in this encounter Plan of Treatment Upcoming Encounters Date Type Specialty Care Team Description 06/08/2022 Appointment Neurology Parris Lucas MD [address] [facility] [address] [facility] [place] [address] (Wo rk) Scheduled Referrals Name Type Priority Associated Diagnoses [facility] Referral Routine Parkinson's disease (HRC ) Ordered: 06/18/2020 documented as of this encounter Visit Diagnoses Diagnosis Parkinson's disease (HRC) - Primary Gait instability Abnormality of gait History of falling Personal history of fall Festinating gait Abnormality of gait documented in this encounter Care Teams Rehab/Pre Vocational Counselor Relationship Specialty Start Date End Date Joanne Higuera APRN, SEWING PATTERN LAYOUT TECHNICIAN PCP - General Nurse Practitioner 06/18/20 [address] [place] [address] documented as of this encounter
--- OUTSIDE RECORDS SUMMARY | 2021-12-14 22:52 | XMS_ITS | Encounter Summary ---
:1955 Author Organization [facility] Address [address] [place] [address] Care Team Providers Name Role Phone Derek Norton MD Primary Care Provider Reason for Visit Reason Comments RELEASE OF RECORDS Encounter Details Date Type Department Care Team Description 09/25/2019 Telephone [place] [facility] Fior Daniel, RN RELEASE OF RECORDS [address] [place], [place] [address] Social History Tobacco Use Types Packs/Day Years Used Date Smoking Tobacco: Never Sex Assigned at Date Recorded Not on file documented as of this encounter Nursing Notes Fior Daniel, RN - 09/25/2019 3:01 PM CDT Daughter called, patient is to move into Assisted living on 10/06. States that they sent a request formedical records over a week ago and they still haven't received anything. I asked if other nurses have seen it and they have not. There is nothing documented. I told the daughter that records are sent by [employer]. I provided the number and transferred her call to them for assistance. documented in this encounter Plan of Treatment Upcoming Encounters Date Type Specialty Care Team Description 06/08/2022 Appointment Neurology Parris Lucas MD [address] [facility] [address] [facility] N [address] (Wo rk) documented as of this encounter Visit Diagnoses Not on filedocumented in this encounter Care Teams Canteen Operator Relationship Specialty Start Date End Date Derek Norton MD PCP - General Family Practice 08/21/18 [facility]17[facility] [address] [place] [address] documented as of this encounter
--- OUTSIDE RECORDS SUMMARY | 2021-12-14 22:52 | XMS_ITS | Encounter Summary ---
:1955 Author Organization [employer] Address [address] [place] [address] Care Team Providers Name Role Phone Prakash Pérez MD Primary Care Provider Reason for Visit Reason Comments Follow-up Went to ER at [facility] on May 04 for chest pain. Negative for PR. Still awaiting results o f stress test. Now taking baby aspirin 1 daily Refill carb/levo IR, CR, midodrine, mirtazepine, and alprazolam DIZZINESS ocassionally. Is an ongoing concern. Gave pt handout about OH and gave glass of water Encounter Details Date Type Department Care Team Description 05/23/2017 Office Visit [facility] Parris Lucas MD Parkinson's disease (HRC) (Primary Dx); [address] [facility] ogenic orthostatic hypotension (HRC); [address] [place]kines[place] [id number] (Wo rk) Social History Tobacco Use Types Packs/Day Years Used Date Smoking Tobacco: Never Sex Assigned at Date Recorded Not on file documented as of this encounter Last Filed Vital Signs Vital Sign Reading Time Taken Comments Blood Pressure 108/65 05/23/2017 11:04 AM CDT Pulse 81 05/23/2017 11:04 AM CDT Temperature - - Respiratory Rate - - Oxygen Saturation - - Inhaled Oxygen Concentration - - Weight 65.8 kg (145 lb) 05/23/2017 11:03 AM CDT Height - - Body Mass Index 22.05 12/26/2016 2:34 PM CDT documented in this encounter Patient Instructions Patient InstructionsParris Lucas MD - 05/23/2017 11:00 AM CDT Please call the [facility] nurse line for any questions, concerns or updates, . Irina Cobos RN Try to reduce the amount of levodopa to 1.5 pills for 2-3 of your daily sinemet doses (for instance,the 3rd, 5th, and 7th doses of the day) Return in 3-4 months documented in this encounter Progress Notes Parris Lucas MD - 05/23/2017 11:00 AM CDT Images from the original note were not included. [address] [place] [address] ANNUAL FOLLOW-UP EXAMINATION SUBJECTIVE Chief Complaint Patient presents with ??? Follow-up Went to ER at [facility] on May 04 for chest pain. Negative for PR. Still awaiting results of stress test. Now taking baby aspirin 1 daily ??? Refill carb/levo IR, CR, midodrine, mirtazepine, and alprazolam ??? DIZZINESS ocassionally. Is an ongoing concern. Gave pt handout about [place] and gave glass of water Neurological update and patient concerns This 61 yo pt returns for routine followup of Stage 2 Parkinson's disease. She has frequent wearingoff, takes sinemet 25/100 2 pills every 2 hours, and amantadine bid, and a CR sinemet at bedtime. She had an episode of chest pain a couple of weeks ago, with a negative cardiac workup so far. She is now living alone, looking into a senior apt, driving only in the local area, daughter is supporting her. Past medical history update No new issues Adverse drug reactions Adverse Drug Reactions were reviewed today, and updated on the Health Profile of [facility]. Current medications Reviewed today and updated on Health Profile in [facility]. Outpatient Medications Prior to Visit Medication [...] Morning and mid-afternoon 180 Cap 4 ??? Calcium Carbonate 500 MG Take 1 tablet by mouth daily as needed for Heartburn. ??? carbidopa-levodopa (SINEMET) 25-100 MG tablet 2 pills every 2 hours up to 10 doses/day 1800 Tab 4 ??? carbidopa-levodopa (SINEMETCR) 50-200 MG controlled release [...] two times a day. Am and noon (Patient taking differently: Take 5 mg by mouth daily. Am and noon) 60 Tab 11 ??? mirtazapine (REMERON) 15 MG tablet Take 1 Tab by mouth daily at bedtime. 90 Tab 4 ??? Multiple Vitamins-Minerals (MULTIVITAMIN ADULT OR) Take 1 tablet by mouth daily (every 24 hours). ??? omega-3 fatty acids (FISH OIL) 1000 MG capsule Take 1 g by mouth daily. No facility-administered medications prior to visit. Family history update No new information to report Social history update 1. Lives in private home with her 2. Work status: not working 3. relationship management lead: indepedent 4. Driving status: she does drive 5. Family involvement, need for assistance: independent 6. Alcohol/tobacco: not discussed 7. Exercise: she tries to exercise some 8. Safety concerns: no falls 9. Advance health care directive*: not in our records Review of systems 1. Cognitive: mild changes 2. Autonomic*: no concerns about orthostatic hypotension, constipation, fecal incontinence, bladder urgency, bladder incontinence, nocturia, urinary retention, delayed gastric emptying, dysphagia, drooling, hyperhidrosis, sexual dysfunction, except for concerns about the following: constipation, chronnic 3. Psychiatric* (PQRS measure #290): does not have concerns about psychosis, hallucinations, depression, anxiety, apathy, impulse control, except for concerns about the following: mild anxiety 4. Sleep* (PQRS measure #292): does not have concerns about insomnia, sleep fragmentation, nocturnalmotor symptoms, REM behavior disorder, restless legs syndrome, sleep disordered breathing, excessivedaytime sleepiness, except for concerns about the following: insmonia 5. Falls in the last 6 months*/assistive device: no falls, no device, sometimes uses a cane 6. Medication-related motor complications* (wearing off, dyskinesia, dystonia, on/off):both dyskinesia and off times; 15 percent of waking hours are off 7. Skin: no concerns 8. Weight/nutrition: stable 9. Other: none OBJECTIVE + Vital Signs: includes sitting and standing blood pressure Vitals: 05/23/17 1103 05/23/17 1104 BP: 137/71 108/65 Pulse: 76 81 Weight: 65.8 kg (145 lb) + Unified Parkinson's Disease Rating Scale Activities of Daily Living Score (maximum 52): 14 + General: She is well dressed and groomed, thin + Neurologic exam: cognitive assessment* (PQRS measure #291): She provides most of her own history, daughter helps fill in some details She is mildly dyskinetic during the exam No tremor Able to get up and walk without any assistive device ASSESSMENT (review of diagnosis and discussion of any atypical features*; PQRS measure #289) (note that the useof the term Parkinson's disease implies a review of disease features according to the [place] PD Brain Bank Diagnostic Criteria) Stage 2 Parkinson's disease in a 61 yo pt. She is in the midst of some social cahnge at the moment, moving out of the farmhouse, and so on, so we decided not to make any medication changes. Down the road, however, she might be a good candidate for Duopa, if there is anyone available to assist her withthe daily maintenance of the tube, starting the pump, etc. She will consider coming for a Duopa assessment later this summer. In the end, we decided for her to just return for a dr visit in September, and then go from there about considering more invasive treatments. I did ask her to see if she could reduce a couple of her [id number] levodopa doses to 1.5 pills instead of 2. She also has ongoing orthostatic hypotension, although her SBPs of 137 sitting and 108 standing today are just about perfect. No need for a change in medication there either. PLAN + Medical and surgical treatment options (PQRS measure #294): See above, consider Duopa, (or DBS) + This patient is not taking, and should not take, antidopaminergic drugs such as metoclopramide, haloperidol, thorazine, or chlorpromazine.* + Rehabilitation options* (PQRS measure #293): PT, OT, and speech therapy referrals considered but not needed + Counseling about exercise*: The patient was instructed to exercise at a moderate level, or at the best level possible, for 120 minutes/week. + Participation in research: not today + Safety concerns counseling: none + Return in 3-4 months Total time: 15 minutes, Counseling time: 10 minutes about issues described in Assessment and Plan Send copy to: Dr. Prakash Pérez, [facility], [address] [place] [id number] ?? Parris Lucas MD 11:36 AM 05/23/2017 Note: The 11 items marked with an asterisk (*) are [place] [employer] 2015 quality measures for Parkinson's disease (Factor et al, Neurology 86: 2278- 2283, 2016) documented in this encounter Plan of Treatment Upcoming Encounters Date Type Specialty Care Team Description 06/08/2022 Appointment Neurology Parris Lucas MD [address] [facility] [address] [facility] [place] [address] [address] (Wo rk) documented as of this encounter Visit Diagnoses Diagnosis Parkinson's disease (HRC) - Primary Neurogenic orthostatic hypotension (HRC) Dyskinesia, drug-induced Lack of coordination documented in this encounter Care Teams Staffing Rn Relationship Specialty Start Date End Date Prakash Pérez MD PCP - General 03/17/14 08/20/18 [address] [place] [address] documented as of this encounter
--- OUTSIDE RECORDS SUMMARY | 2021-12-14 22:52 | XMS_ITS | Encounter Summary ---
:1955 Author Organization [facility] Address [address] [place] [address] Care Team Providers Name Role Phone Joanne Higuera APRN, FLORES Primary Care Provider [phone] Reason for Visit Reason Comments Other Shoes Encounter Details Date Type Department Care Team Description 09/21/2020 Telephone [facility] Fior Daniel RN Other (Shoes) [address] [place], [place] [address] Social History Tobacco Use Types Packs/Day Years Used Date Smoking Tobacco: Never Sex Assigned at Date Recorded Not on file documented as of this encounter Nursing Notes Fior Daniel RN - 09/21/2020 4:38 PM CDT Daughter left a message asking for specific recommendations for shoes for patient. States that the nurse asked if heavier shoes might help with her toes and that she is crossing her legs more and dyskinetic. Said she does like her Ustep walker. I will ask f Physical Therapy has any specific shoe recommendations and call daughter back tomorrow. documented in this encounter Plan of Treatment Upcoming Encounters Date Type Specialty Care Team Description 06/08/2022 Appointment Neurology Parris Lucas MD [address] [facility] [address] [facility] [address] [address] (Wo rk) documented as of this encounter Visit Diagnoses Not on filedocumented in this encounter Care Teams Social Science Analyst Relationship Specialty Start Date End Date Sipprell, Joanne R, FILE CLERK DATA ENTRY, DENTAL DETAIL REPRESENTATIVE PCP - General Nurse Practitioner 06/18/20 [address] [place] [address] documented as of this encounter
--- OUTSIDE RECORDS SUMMARY | 2021-12-14 22:52 | XMS_ITS | Encounter Summary ---
:1955 Author Organization [employer] Address [address] [place] [address] Care Team Providers Name Role Phone Derek Norton MD Primary Care Provider Reason for Visit Reason Comments Follow-up SHOT,FLU given Encounter Details Date Type Department Care Team Description 12/20/2018 Office Visit [facility] Parris Lucas, Parkinson's disease (HRC) (P rimary Dx); [address] Encounter for administration of vaccine; Drive [address] [facility] Neurogenic orthostatic hypot ension (HRC); [place], [place] [address] Dyskinesia, drug-induced; [address] [place], [place] Mild cognitive impairment; [phone] [id number] Abnormal weight loss Social History Tobacco Use Types Packs/Day Years Used Date Smoking Tobacco: Never Sex Assigned at Date Recorded Not on file documented as of this encounter Last Filed Vital Signs Vital Sign Reading Time Taken Comments Blood Pressure 79/51 12/20/2018 1:37 PM CDT Pulse 84 12/20/2018 1:37 PM CDT Temperature - - Respiratory Rate - - Oxygen Saturation - - Inhaled Oxygen Concentration - - Weight 60.6 kg (133 lb 8 oz) 12/20/2018 1:36 PM CDT Height - - Body Mass Index 20.3 12/26/2016 2:34 PM CDT documented in this encounter Patient Instructions Patient InstructionsParris Lucas MD - 12/20/2018 1:20 PM CDT Stop taking the baby aspirin Magnesium is fine! Enjoy [place]! Return in the spring documented in this encounter Progress Notes Parris Lucas MD - 12/20/2018 1:20 PM CDT Images from the original note were not included. [address] [employer] [place] [address] FOLLOWUP EXAMINATION SUBJECTIVE Chief Complaint Patient presents with ??? Follow-up ??? SHOT,FLU given Current concerns and update: This 63 yo pt returns for routine 4 month followup of Stage 3 Parkinson's disease, onset 2006, withmild cognitive impairment and orthostatic hypotension. At the last visit in August, I switched her to sinemet 25/250 at [id number] and a CR at bedtime, with one amantadine/day. Daughter is with her today, has taken over setting up the pills and really enjoyed their meeting with the pharmacist, which helped to clean up the medication list. She is doing much better now that sheis taking medications on time. She is beginning to engage in some of the activities in her facility. Past Medical History Update: No past medical history on file. Adverse Drug Reactions: Reviewed today and updated on Health Profile in [facility]. Allergies Allergen Reactions ??? Penicillins PN: LW Reaction: Fever ??? Sulfa Antibiotics PN: rash Current Medications: Reviewed today and updated on Health Profile in [facility]. Outpatient Medications Prior to Visit Medication Sig Dispense Refill ??? acetaminophen (AKA TYLENOL) 325 MG tablet Take 325-650 mg by mouth every 4 hours as needed for Pain. Maximum 4000mg per 24 hours ??? amantadine (SYMMETREL) 100 MG capsule Take 100 mg by mouth daily. ??? aspirin 81 MG tablet Take 81 mg by mouth daily. ??? Calcium Carbonate 500 MG Take 1.5 Tablets by mouth daily. TUMS ??? carbidopa-levodopa (SINEMET) 25-250 MG tablet 1 pill at [id number] 630 Tablet 3 ??? carbidopa-levodopa (SINEMETCR) 50-200 MG controlled release tablet 1 at 9pm 90 Tablet 4 ??? Docusate Calcium (STOOL SOFTENER OR) Take 2 Tablets by mouth Daily. ??? escitalopram oxalate (AKA LEXAPRO) 10 MG tablet Take 20 mg by mouth Daily. ??? fludrocortisone (FLORINEF) 0.1 MG tablet Take 0.1 mg by mouth daily. ??? letrozole (AKA FEMARA) 2.5 MG tablet Take 2.5 mg by mouth daily (every 24 hours). ??? magnesium oxide (AKA MAG-OX) 500 MG tablet Take 1,000 mg by mouth daily. ??? midodrine (PROAMATINE) 5 MG tablet TAKE TWO TABLETS BY MOUTH EVERY MORNING AND 1 TABLET AT NOON 270 Tablet 3 ??? mirtazapine (REMERON) 15 MG tablet TAKE ONE TABLET BY MOUTH AT BEDTIME 90 Tablet 4 ??? Multiple Vitamins-Minerals (MULTIVITAMIN ADULT OR) Take 1 Tablet by mouth Daily. Contains vitamin D 1000 units and calcium carbonate 500 mg ??? ALPRAZolam (XANAX) 0.25 MG tablet Take 1 Tablet by mouth every 24 hours as needed. (Patient not taking: Reported on 09/17/2018) 20 Tablet 3 No facility-administered medications prior to visit. Family History Update: No family history on file. Social History Update: She is alone in an apt Review of Systems: Dry mouth, drooling, falls, uses a walker, muscle aches Falls since last visit? She has had falls OBJECTIVE Vital Signs: (includes sitting and standing blood pressure) Vitals: 12/20/18 1336 12/20/18 1337 BP: 102/52 (!) 79/51 Pulse: 80 84 Weight: 60.6 kg (133 lb 8 oz) Unified Parkinson's Disease Rating Scale (Part 2) Functional Score (maximum 52): 19 General: She is thin, quiet, softspoken Neurologic exam: No tremor, no dyskinesia She walks slowly, but independently, some freezing on initiation and turns ASSESSMENT/PLAN Stage 3 Parkinson's disease, doing better! She is thinking of going to [place] with friends, so we talked about that. SHe is getting engaged in activities in her building, too. I suggested that she stop taking baby aspirin, as she has no specific reason to be taking it. I will see her back next summer or as needed. Her BP is still low today, but she is not symptomatic. I should note, her weight is downa few pounds, so we will have to keep an eye on that. Total time/ Counseling time: 25 min, 20 min discussion Send a copy of note to: Dr. Derek Norton, [address] [place] [address] ?? Parris Lucas MD 1:47 PM 12/20/2018 documented in this encounter Plan of Treatment Upcoming Encounters Date Type Specialty Care Team Description 06/08/2022 Appointment Neurology Parris Lucas MD [address] [facility] [address] [facility] [address] (Wo rk) documented as of this encounter Visit Diagnoses Diagnosis Parkinson's disease (HRC) - Primary Encounter for administration of vaccine Neurogenic orthostatic hypotension (HRC) Dyskinesia, drug-induced Lack of coordination Mild cognitive impairment Mild cognitive impairment, so stated Abnormal weight loss Loss of weight documented in this encounter Care Teams Cost Control Supervisor Relationship Specialty Start Date End Date Derek Norton MD PCP - General Family Practice 08/21/18 06/17/20 [facility] [address] [place] [address] documented as of this encounter
--- OUTSIDE RECORDS SUMMARY | 2021-12-14 22:52 | XMS_ITS | Encounter Summary ---
:1955 Author Organization [employer] Address [address] [place] [address] Care Team Providers Name Role Phone Joanne Higuera APRN, CNP Primary Care Provider [phone] Reason for Referral Therapies (Routine) - Closed Specialty Diagnoses / Procedures Referred By Contact Refer red To Contact Diagnoses Parkinson's disease (HRC) Parris Lucas MD [address] [facility] [address] [place], [place] [address] Referral ID Status Reason Start Date Expiration Date Visits Requ ested Visits Authorized [id number] Closed 06/18/2020 06/18/2021 1 1 Scheduling Instructions Your provider has recommended an appoint ment with [facility]. You may call [phone] to schedule your a ppointment. We suggest you call your health insurance company about your coverage an d benefits for this appointment. 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); [place], [place] Neuro genic orthostatic hypotension (HRC) [id number] (Wo rk) Social History Tobacco Use Types Packs/Day Years Used Date Smoking Tobacco: Never Sex Assigned at Date Recorded Not on file documented as of this encounter Last Filed Vital Signs Vital Sign Reading Time Taken Comments Blood Pressure 114/67 06/18/2020 4:01 PM CDT Pulse 81 06/18/2020 4:01 PM CDT Temperature - - Respiratory Rate - - Oxygen Saturation - - Inhaled Oxygen Concentration - - Weight 66.2 kg (146 lb) 06/18/2020 3:53 PM CDT shoes on Height - - Body Mass Index 22.2 12/26/2016 2:34 PM CDT documented in this encounter Patient Instructions Patient InstructionsParris Lucas MD - 06/18/2020 3:40 PM CDT Please contact us using [email or web address] or by calling the [facility]'s [place] nurse line at [phone]. Two easy ways to stay connected with what is going on at [facility]: 1. If you have not already done so, we encourage you to sign up (for free) to be on our e-mailing list, so that you will receive information about upcoming classes, events, and activities hosted by [facility]! To sign up, simply send an email to [email or web address] indicating that you would like to be included. 2. Follow us on Facebook to learn more about current news and upcoming events. Find us at [facility]! No medication changes Return in 6 months See PT to discuss walkers, Iveth is fine! documented in this encounter Progress Notes Parris Lucas MD - 06/18/2020 3:40 PM CDT Images from the original note were not included. [address] [place] [address] ANNUAL FOLLOW-UP EXAMINATION SUBJECTIVE Chief Complaint Patient presents with ??? Follow-up ??? FALL had some frequent falls, but better now Neurological update and patient concerns This patient was seen in person. The patient and doctor were at [facility]'s [place]. The visit began at 4:06pm and ended at 4:20pm. This 62 yo pt returns for routine 6 month followup of late-stage Parkinson's disease with NOH, MCI,and hallucinations, onset about 2005, followed by me since 2008. At the last visit, she had recentlymoved to a new living situation, and we decided not to make any med changes, but to see how she did with good nutrition and more exercise and social interaction. She takes Nuplazid, midodrine, florinef, lexapro, remeron, and IR sinemet 1 pill about every 2 hours, 7 doses and a CR at bedtime. I saw her in December, and received a fax from her facility in February indicating that she had fallen 11 times since arriving at the facility, usually because she would forget to use her walker. That has improved in the last few months, with fewer falls, as she is using her walker. Her BP is holding its own, and Nuplazid has really reduced the hallucinations. Her appetite has been OK, sleep is OK, and she is very involved in social activities. Her medications are administered, meals are prepared, and she has a little help getting dressed in the morning. Past medical history update No new health issues Adverse drug reactions Adverse Drug Reactions were reviewed today, and updated on the Health Profile of [facility]. Current medications Reviewed today and updated on Health Profile in [facility]. Outpatient Medications Prior to Visit Medication Sig Dispense Refill ??? acetaminophen (TYLENOL) 500 MG tablet Take 500 mg by mouth two times a day. Plus 100mg bid PRN Maximum acetaminophen dose is 4000 mg in 24 hours ??? calcium carbonate (ANTACID CALCIUM EXTRA STRENGTH) 750 MG chewable tablet Chew and swallow 750 mg by mouth two times a day. ??? carbidopa-levodopa (SINEMET) 25-250 MG tablet Take 1 tab po at 7:05am, 9am, 11am, 1pm, 3:05pm, 5pm and 7pm ??? carbidopa-levodopa (SINEMETCR) 50-200 MG controlled release tablet 1 at 9pm (Patient taking differently: Take 1 Tablet by mouth daily at bedtime. 9pm) 90 Tablet 4 ??? cholecalciferol (VITAMIND3) 10 MCG (400 UNIT) tablet Take 200 Units by mouth daily. ??? Docusate Calcium (STOOL SOFTENER OR) Take 2 Tablets by mouth daily at bedtime. ??? escitalopram oxalate (LEXAPRO) 20 MG tablet Take 20 mg by mouth daily. ??? fludrocortisone (FLORINEF) 0.1 MG tablet Take 2 Tablets by mouth daily. 180 Tablet 3 ??? letrozole (AKA FEMARA) 2.5 MG tablet Take 2.5 mg by mouth daily at bedtime. ??? magnesium oxide (AKA MAG-OX) 500 MG tablet Take 500 mg by mouth daily. ??? midodrine (PROAMATINE) 5 MG tablet Take 2 tabs po at 7am; plus 1 tab at 11am ??? mirtazapine (REMERON) 15 MG tablet TAKE ONE TABLET BY MOUTH AT BEDTIME 90 Tablet 2 ??? Multiple Vitamins-Minerals (MULTIVITAMIN ADULT OR) Take 1 Tablet by mouth Daily. ??? Pimavanserin Tartrate (NUPLAZID) 34 MG CAPS Take 34 mg by mouth daily. 90 Capsule 3 No facility-administered medications prior to visit. Family history update No new information to report Social history update 1. Lives in assisted living 2. 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 Driving status: not driving 5. Family involvement, need for assistance: standby assistance 6. Alcohol/tobacco: none 7. Exercise: she participates in groups in her building 8. Safety concerns: falls 9. Advance health care directive*: on file Review of systems 1. Cognitive: ongoing impairment 2. Autonomic*: no concerns about orthostatic hypotension, constipation, fecal incontinence, bladder urgency, bladder incontinence, nocturia, urinary retention, delayed gastric emptying, dysphagia, drooling, hyperhidrosis, sexual dysfunction, except for concerns about the following: constipation, bladder urgency, dry mouth, droolin 3. Psychiatric* (PQRS measure #290): does not have concerns about psychosis, hallucinations, depression, anxiety, apathy, impulse control, except for concerns about the following: no concerns 4. Sleep* (PQRS measure #292): does not have concerns about insomnia, sleep fragmentation, nocturnalmotor symptoms, REM behavior disorder, restless legs syndrome, sleep disordered breathing, excessivedaytime sleepiness, except for concerns about the following: no cocnerns 5. Falls in the last 6 months*/assistive device: uses a walker all the time, WC for long distances at times 6. Medication-related motor complications* (wearing off, dyskinesia, dystonia, on/off):none; - percent of waking hours are off 7. Skin: no concerns 8. Weight/nutrition: weight has been stable 9. Other: none OBJECTIVE + Vital Signs: includes sitting and standing blood pressure Vitals: 06/18/20 1553 BP: (!) 161/88 Pulse: 71 Weight: 66.2 kg (146 lb) + Unified Parkinson's Disease Rating Scale Activities of Daily Living Score (maximum 52): 17 + General: She appears older than her stated age, but trim, well dressed and healthy in general appearance + Neurologic exam: cognitive assessment* (PQRS measure #291): She provides some information, but also seems not to get it at times, daughter provides most of the details No tremor, mild, slow dyskinesia, a little tendency to stretch out or writhe She walks pretty well with the walker, able to get up on her own ASSESSMENT (review of diagnosis and discussion of any atypical features*; PQRS measure #289) (note that the useof the term Parkinson's disease implies a review of disease features according to the [place] PD Brain Bank Diagnostic Criteria) Parkinson's disease, with NOH, dementia, hallucinations, and a past episode of failure to thrive. She is doing quite well in all respects at the moment, no need to make any changes. I encouraged the ptand her daughter to enjoy the summer. THey wanted to see PT to discuss different kinds of walkers, which I wrote for (pt thinks she wants a Ustep walker, which I'm not sure she needs). I will see her back in 6 months. PLAN + Medical and surgical treatment options (PQRS measure #294): See above + This patient is not taking, and should not take, antidopaminergic drugs such as metoclopramide, haloperidol, thorazine, or chlorpromazine.* + Rehabilitation options* (PQRS measure #293): PT, OT, and speech therapy referrals considered but not needed, except for: PT for walker eval + Counseling about exercise*: The patient was instructed to exercise at a moderate level, or at the best level possible, for 150 minutes/week. + Participation in research: not today + Safety concerns counseling: falls + Return in 6 months Send copy to: Joanne Higuera CNP, [address] [facility] [address] Parris Lucas MD 4:01 PM 06/18/2020 Note: The 11 items marked with an asterisk (*) are [place] Academy [employer] Neu[employer] 2015 quality measures for Parkinson's disease (Factor et al, Neurology 86: 2278- 2283, 2016) documented in this encounter Plan of Treatment Upcoming Encounters Date Type Specialty Care Team Description 06/08/2022 Appointment Neurology Parris Lucas MD [address] [facility] [address] [place] [id number] (Wo rk) Scheduled Referrals Name Type Priority Associated Diagnoses Order S chedule Physical Therapy Referral Routine Parkinson's disease (HRC ) Ordered: 06/18/2020 documented as of this encounter Visit Diagnoses Diagnosis Parkinson's disease (HRC) - Primary Mild cognitive impairment Mild cognitive impairment, so stated 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
--- OUTSIDE RECORDS SUMMARY | 2021-12-14 22:52 | XMS_ITS | Encounter Summary ---
:1955 Author Organization [facility] Address [address] [place] [address] Care Team Providers Name Role Phone Derek Norton MD Primary Care Provider Reason for Visit Reason Comments Refill Encounter Details Date Type Department Care Team Description 09/13/2018 Refill [facility] Africa Lucas MD Refill [address] [facility] [address] [place], [place] [address] [place], [place] [id number] (Wo rk) Social History Tobacco Use Types Packs/Day Years Used Date Smoking Tobacco: Never Sex Assigned at Date Recorded Not on file documented as of this encounter Nursing Notes Yohana Meadows RN - 09/14/2018 5:25 PM CDT Pt tolerating regimen since 09-12-17. No changes since then on this medication. Patient last since in August 2018. Renewed medication per medication refill protocol. Requested Prescriptions Signed Prescriptions Disp Refills ??? midodrine (PROAMATINE) 5 MG tablet 270 Tablet 3 Sig: TAKE TWO TABLETS BY MOUTH EVERY MORNING AND 1 TABLET AT NOON Authorizing Provider: AFRICA LUCAS Ordering User: YOHANA MEADOWS documented in this encounter Plan of Treatment Upcoming Encounters Date Type Specialty Care Team Description 06/08/2022 Appointment Neurology Africa Lucas MD [address] [facility] [address] [place] [address] (Wo rk) documented as of this encounter Visit Diagnoses Not on filedocumented in this encounter Care Teams Fence Gate Assembler Relationship Specialty Start Date End Date Derek Norton MD PCP - General Family Practice 08/21/18 06/17/20 [facility] [address] [place] [address] documented as of this encounter
--- OUTSIDE RECORDS SUMMARY | 2021-12-14 22:52 | XMS_ITS | Encounter Summary ---
:1955 Author Organization [employer] Address [address] [place] [address] Care Team Providers Name Role Phone Derek Norton MD Primary Care Provider Reason for Visit Reason Comments QUESTIONS, GENERAL Encounter Details Date Type Department Care Team Description 09/23/2019 Telephone [facility] Chelsie Toribio, RN QUESTIONS, GENERAL [address] [place], [place] [address] Social History Tobacco Use Types Packs/Day Years Used Date Smoking Tobacco: Never Sex Assigned at Date Recorded Not on file documented as of this encounter Nursing Notes Chelsie Toribio RN - 09/23/2019 2:55 PM CDT Monisha called and LM on nurse line stating she has called [employer] a few times and has not gotten a call back form them. [facility] and sounds like they have some people going to a training, so have some temp people working, but she will make sure they get a call back. Called an LM for Monisha telling her to expect a call back and let us know if she has further questions. We are working with insurance to get med covered. documented in this encounter Plan of Treatment Upcoming Encounters Date Type Specialty Care Team Description 06/08/2022 Appointment Neurology Parris Lucas MD [address] [facility] [address] [facility] [id number] (Wo rk) documented as of this encounter Visit Diagnoses Not on filedocumented in this encounter Care Teams Top Coater Relationship Specialty Start Date End Date Derek Norton MD PCP - General Family Practice 08/21/18 06/17/20 [facility] [address] [place] [address] documented as of this encounter
--- OUTSIDE RECORDS SUMMARY | 2021-12-14 22:52 | XMS_ITS | Encounter Summary ---
:1955 Author Organization [facility] Address [address] [place] [address] Care Team Providers Name Role Phone Derek Norton MD Primary Care Provider Encounter Details Date Type Department Care Team Description 10/01/2019 Orders Only Initial Department Provider, Chelsey, [facility] JANIE GRAVES MD [place], [place] [address] Interface provider [phone] [place] [address] Social History Tobacco Use Types Packs/Day Years Used Date Smoking Tobacco: Never Sex Assigned at Date Recorded Not on file documented as of this encounter Plan of Treatment Upcoming Encounters Date Type Specialty Care Team Description 06/08/2022 Appointment Neurology Parris Lucas MD [address] [facility] [address] [facility] [address] [address] (Wo rk) documented as of this encounter Procedures Procedure Name Priority Date/Time Associated Diagnosis Comme nts EKG 10/01/2019 Results for thi s procedure are in the resu lts section. documented in this encounter Results EKG (10/01/2019) Narrative This result has an attachment that is no t available. Interface Provider EKG documented in this encounter Visit Diagnoses Not on filedocumented in this encounter Care Teams Cigarette Making Machine Hopper Feeder Relationship Specialty Start Date End Date Derek Norton MD PCP - General Family Practice 08/21/18 06/17/20 [facility] [address] [place] [address] documented as of this encounter
--- OUTSIDE RECORDS SUMMARY | 2021-12-14 22:52 | XMS_ITS | Encounter Summary ---
:1955 Author Organization [facility] Address [address] [place] [address] Care Team Providers Name Role Phone Derek Norton MD Primary Care Provider Reason for Visit Reason Comments Medication Questions Encounter Details Date Type Department Care Team Description 08/30/2019 Telephone [facility] Chelsie Toribio automation sales manager Questions [address] [place] [phone] Social History Tobacco Use Types Packs/Day Years Used Date Smoking Tobacco: Never Sex Assigned at Date Recorded Not on file documented as of this encounter Nursing Notes Chelsie Toribio RN - 08/30/2019 2:52 PM CDT Spoke with Monisha and old her information from Dr. Lucas. No further questions at this time. Parris Lucas MD - 08/30/2019 12:46 PM CDT Stop amantadine on September 06. Chelsie Toribio RN - 08/30/2019 12:26 PM CDT Monisha, called to report they cannot get the EKG done until September 11. She is wondering if they still should stop the amantadine now, or wait until closer to the EKG date. Please advise. Thanks. documented in this encounter Plan of Treatment Upcoming Encounters Date Type Specialty Care Team Description 06/08/2022 Appointment Neurology Parris Lucas MD [address] [facility] [address] [place] [address] (Wo rk) documented as of this encounter Visit Diagnoses Not on filedocumented in this encounter Care Teams Commissary Officer Relationship Specialty Start Date End Date Derek Norton MD PCP - General Family Practice 08/21/18 06/17/20 [facility] [address] [place] [address] documented as of this encounter
--- OUTSIDE RECORDS SUMMARY | 2021-12-14 22:52 | XMS_ITS | Encounter Summary ---
:1955 Author Organization [facility] Address [address] [place] [address] Care Team Providers Name Role Phone Prakash Pérez MD Primary Care Provider Reason for Visit Reason Onset Date Comments Refill 02/22/2018 Encounter Details Date Type Department Care Team Description 02/22/2018 Refill [facility] Fior Daniel, RN Refill [address] [place], [place] [address] Social History Tobacco Use Types Packs/Day Years Used Date Smoking Tobacco: Never Sex Assigned at Date Recorded Not on file documented as of this encounter Nursing Notes Fior Daniel, RN - 02/22/2018 11:34 AM CST Please sign for refills. BARREL FINISHER documented in this encounter Plan of Treatment Upcoming Encounters Date Type Specialty Care Team Description 06/08/2022 Appointment Neurology Parris Lucas MD [address] [facility] [address] [facility] [address] [address] (Wo rk) documented as of this encounter Visit Diagnoses Not on filedocumented in this encounter Care Teams Plant Taxonomy Teacher Relationship Specialty Start Date End Date Prakash Pérez MD PCP - General 03/17/14 08/20/18 [address] [place] [address] documented as of this encounter
--- OUTSIDE RECORDS SUMMARY | 2021-12-14 22:52 | XMS_ITS | Encounter Summary ---
:1955 Author Organization [facility] Address [address] [place] [address] Care Team Providers Name Role Phone Derek Norton MD Primary Care Provider Reason for Referral Therapies (Routine) - Closed Specialty Diagnoses / Procedures Referred By Contact Refer red To Contact Diagnoses Parkinson's disease (HRC) Parris Lucas MD [address] [facility] [address] [place], [place] [address] Referral ID Status Reason Start Date Expiration Date Visits Requ ested Visits Authorized Closed 12/06/2019 12/05/2020 1 1 Scheduling Instructions Your provider has recommended an appoint ment with [facility]. You may call [phone] to schedule yo ur appointment. We suggest you call your health insurance company about your cove rage and benefits for this appointment. Reason for Visit Reason Comments REFERRAL REQUEST Encounter Details Date Type Department Care Team Description 12/06/2019 Telephone [facility] Joselyn Hernandez, REFERRAL REQUEST [address] ruby RN [place], [place] [address] Social History Tobacco Use Types Packs/Day Years Used Date Smoking Tobacco: Never Sex Assigned at Date Recorded Not on file documented as of this encounter Nursing Notes Joselyn Hernandez, RN - 12/06/2019 4:54 PM CDT Spoke with daughter Monisha. Transferred her to the front line to set up OT and provider visit on the same day. Closing encounter. Parris Lucas MD - 12/06/2019 2:23 PM CDT OT order written, hopefully can be done on the same day, just call pt and let her know that I knew she was moving to a new place and wanted the OT eval to make sure that they are able to provide the right kinds of support in her new place. Or something like that. Joselyn Hernandez RN - 12/06/2019 1:32 PM CDT Received a call from the patients daughter (Moinsha). She states the patient is unaware she is calling.The patient has an upcoming appointment on 12/19/2019. She recently moved into [place] and has been adjusting well. The patient is falling about once a week when walking with her walker. The daughter has concerns about her memory and would like to know if an OT evaluation would be possible. Left her a message stating we will pass the information along to the provider. Instructed her to send any additionaldetails through [employer]. The upcoming appointment is in person. Dr. Lucas - Please advise. documented in this encounter Plan of Treatment Upcoming Encounters Date Type Specialty Care Team Description 06/08/2022 Appointment Neurology Parris Lucas MD [address] [facility] [address] [facility] [address] [address] (Wo rk) Scheduled Referrals Name Type Priority Associated Diagnoses Order S chedule Occupational Therapy Referral Routine Parkinson's disease (HRC) Ordered: 12/06/2019 documented as of this encounter Visit Diagnoses Diagnosis Parkinson's disease (HRC) - Primary documented in this encounter Care Teams Yeast Stacker Relationship Specialty Start Date End Date Derek Norton MD PCP - General Family Practice 08/21/18 06/17/20 [facility] [address] [place] [address] documented as of this encounter
--- OUTSIDE RECORDS SUMMARY | 2021-12-14 22:52 | XMS_ITS | Encounter Summary ---
:1955 Author Organization [facility] Address [address] [place] [address] Care Team Providers Name Role Phone Prakash Pérez MD Primary Care Provider Reason for Referral Therapies (Routine) - Closed Specialty Diagnoses / Procedures Referred By Contact Refer red To Contact Diagnoses Parkinson's disease ([facility]) Parris Lucas MD [address] [phone] Referral ID Status Reason Start Date Expiration Date Visits Requ ested Visits Authorized [id number] Closed 04/06/2018 06/05/2018 1 1 Scheduling Instructions This order is your clinician's recommend ation for a service and is not an insurance referral which authorizes payment. The r ecommended service and/or location may not be covered by your insurance plan. Please c all the number on your insurance card to find out your specific benefits and coverage for the recommended services and/or location. If you need help scheduling the recommen ded services, please ask your clinician's staff to assist you. herapies (Routine) - Closed Specialty Diagnoses / Procedures Referred By Contact Refer red To Contact Diagnoses Parkinson's disease ([facility]) Parris Lucas MD [address] [facility] [address] [place] [phone] Referral ID Status Reason Start Date Expiration Date Visits Requ ested Visits Authorized [id number] Closed 04/06/2018 06/05/2018 1 1 Scheduling Instructions Your provider has recommended an appoint ment with [facility]. You may call [phone] to schedule yo ur appointment. If you do not schedule an appointment within the next 1 to 3 busin ess days, we will call you to help arrange your appointment. We suggest you call yo ur health insurance company about your coverage and benefits for this appointme nt. STANT INFANT TEACHER Reason for Visit Reason Comments LETTER NEEDED DMV Encounter Details Date Type Department Care Team Description 04/04/2018 Telephone [facility] Chelsie Toribio RN LETTER NEEDED (DM) [address] [place], [place] [phone] Social History Tobacco Use Types Packs/Day Years Used Date Smoking Tobacco: Never Sex Assigned at Date Recorded Not on file documented as of this encounter Nursing Notes Chelsie Toribio RN - 05/30/2018 8:40 AM CDT Jessica called and LM wondering if Dr. Lucas had written letter to DMV. Spoke with nurse who had spoken to Dr. Lucas about his and no letter is needed. Dr. Lucas had said aletter would be needed if she were still driving and since she is not driving anymore her license will just . Called and LM for Jessica telling her no letter was needed and if she would like more details to call us back. Joselyn Hernandez RN - 04/12/2018 11:57 AM CST Since patient is choosing not to drive any longer, then no letter is needed. Closing encounter at this time. STANT INFANT TEACHER Parris Lucas MD - 04/06/2018 2:09 PM CST Ok thanks STANT INFANT TEACHER Chelsie Toribio RN - 04/06/2018 1:53 PM CST Spoke with Jessica. She states she has not driven over a year and would actually prefer not to drive. She if fine if Dr. Lucas states this in her letter. Jessica will mail [facility] letter to us, her fax machine in not working. FYI. STANT INFANT TEACHER Parris Lucas MD - 04/06/2018 9:00 AM CST She is in that sticky situation where I kind of feel obligated to do at least an OT driving screen to ensure that she is actually able to drive every so often around town safely. She is a nice person, but she has a bad disease that does at some point impact on a person's ability to drive. I'm sorry, but I feel the need to ask her to do this, not sure if it can be done by an OT down at the hospital where she is, or whether she would have to come up here. I will write for both an internal and externalorder.... STANT INFANT TEACHER Chelsie Toribio RN - 04/04/2018 2:04 PM CST Jessica called because she received a letter from the [facility] asking for physician's statement on ability to drive. She will fax over letter to nursing fax. She states he really has not driven for two years and would only need to drive around town. Awaiting fax. STANT INFANT TEACHER documented in this encounter Plan of Treatment Upcoming Encounters Date Type Specialty Care Team Description 06/08/2022 Appointment Neurology Parris Lucas MD [address] [facility] [address] [address] [place] [address] (Wo rk) Scheduled Referrals Name Type Priority Associated Diagnoses Order S chedule Occupational Therapy Referral Routine Parkinson's disease ([facility]) Ordered: 04/06/2018 Occupational Therapy Referral Routine Parkinson's disease ([facility]) Ordered: 04/06/2018 documented as of this encounter Visit Diagnoses Diagnosis Parkinson's disease ([facility]) - Primary documented in this encounter Care Teams Bilingual Administrative Assistant Relationship Specialty Start Date End Date Prakash Pérez MD PCP - General 03/17/14 08/20/[address] [place] [address] documented as of this encounter
--- OUTSIDE RECORDS SUMMARY | 2021-12-14 22:52 | XMS_ITS | Encounter Summary ---
:1955 Author Organization [facility] Address [address] [place] [address] Care Team Providers Name Role Phone Derek Norton MD Primary Care Provider Reason for Visit Reason Comments Balance/gait Dysfunction Therapies (Routine) - Closed Specialty Diagnoses / Procedures Referred By Contact Refer red To Contact Diagnoses Parkinson's disease ([facility]) Parris Lucas MD [address] [facility] [address] [place], [place] [phone] Referral ID Status Reason Start Date Expiration Date Visits Requ ested Visits Authorized [id number] Closed 08/21/2018 10/20/2018 1 1 Encounter Details Date Type Department Care Team Description 08/22/2018 Initial Consult [facility] Physical Diana Kinsey rkinson's disease ([facility]) (Primary Dx); Therapy K, PT Gait instability; [address] [place] [id number] Social History Tobacco Use Types Packs/Day Years Used Date Smoking Tobacco: Never Sex Assigned at Date Recorded Not on file documented as of this encounter Progress Notes Diana Kinsey, PT - 08/22/2018 11:00 AM CDT Visit Date: 08/22/2018 Patient : 1955 Physical Therapy Parkinson Evaluation/Plan of Care [facility] Initial Certification Period: 08/22/2018 to 11/20/18 Referring Provider: Dr. Parris Lucas Visit Diagnosis/ICD: 1. Parkinson's disease ([facility]) 2. Gait instability 3. History of falling Precautions: Fall precautions Orthostatic hypotension Onset/Referral Date: 08/22/2018 Reason for Referral: -Outpatient PT. Orders: Evaluate and treat. [facility] Services: Speech therapy. Family Services. Exacerbation Date: 08/04/2018 Last Referring MD Visit: 08/21/2018 Insurance Provider: MEDICARE SUBJECTIVE Accompanied by: Her daughter, Monisha Patient's Therapy Goal: To look at other options for walker and power lift chairs. Looking for something to walk in apartment complex. Previous PT/Speech since March 06: No. Past Medical History: Past medical history, medication, and allergies were reviewed per patient report. History is unremarkable. Patient has no past medical history on file. Current Comorbidities: None reported. Additional Personal Factors: daughter observes to leans to R; her daughter reports when she gets cold she tends to freeze; Mobility Limitations Reported: Falling. Gait deficits. Balance/Falls in Past 6 Months: 4. 2 have been with walker. Thinks these are related to medicine. She felt dizzy/lightheaded. Backwards or to side. Able to get up okay. Bruises, but no serious injury. Report of Transfer [place]: Stand from low sofa: Difficult. Bed mobility: No concerns - has an adjustable bed. Car: Uses handles, no concerns. Floor: Uses furniture. Stairs: I can do steps Slow, but I do them Pain: Neck and shoulder pain, R sided. Symptomatic Side: Right. Motor Fluctuations Reported: No. Unless she misses pill. Dyskinesia Reported - United Parkinson's Disease Rating Scale (UPDRS): Yes. Takes amantadine. Report of freezing: Yes. When she is tired, in crowds, turning, thresholds. Report of propulsion/retropulsion: Yes to both. More so with retropulsion. Assistive Devices Utilized: 4WW/transport chair. Furniture crawls around her apartment. Assistive Devices Available: Front wheeled walker. Support System: Lives alone. Living Situation: Senior apartment. [facility] -Living environment: Indoor walking areas-hallways of apartment complex. Driving: No. Community Mobility: Independent community ambulation using assistive device. Formal Exercises: Classes available in her building with group emr trainer - balance, sit to sand, arm weights. Stationary bike with arms and treadmill; Exercise Frequency: Several times per week. 45 minutes 3x/week - has been doing this for 1 year Equipment/Local Gym available: Classes available in her building with group emr trainer - balance, sit to sand, arm weights. Stationary bike with arms and treadmill; Communication: Low volume. History Complexity: Moderate OBJECTIVE Vitals: Last taken weight: 08/21/18 : 62.9 kg (138 lb 9.6 oz) Last taken height: 12/26/16 : 1.727 m (5' 8) Seated BP 121/71 HR 75 Integument: Visible skin intact, pt reports no issues or concerns Behavioral Characteristics: Alert, cooperative, pleasant. Motor Function at Time of Eval: On - best level of functioning on medication.. Last medication dose: 11:00am Tremor Observed: None. Rigidity: (UPDRS)-(Judged on passive movement of major joint with pt relaxed in lower extremity) 1 = Slight or detectable only when activated by mirror or other movements. Body Bradykinesia and Hypokinesia: (UPDRS)(Combining slowness, hesitancy, decreased armswing, small amplitude) 1 = Minimal slowness, giving movement a deliberate character, could be normal for some persons. Possible reduced amplitude. Dyskinesia (at time of evaluation): Absent. Range of Motion: Grossly within normal limits. Muscle Strength: Grossly within normal limits. Posture/Alignment (Gross assessment): Forward head: minimal Thoracic kyphosis: minimal Lean to R: minimal Transfers: Sit to Stand: Safe and independent. Stand to Sit: Safe and independent. Functional Testing: Timed Up and Go Test (TUG): - 21.60 seconds with 4ww/transport chair device - poor mechanics/instability with turn (>12 seconds indicates higher risk of falls in older community dwelling adults - Mary, 2016) Five Times Sit to Stand Test (FTSST): No Arms - 10.23 seconds. Braces legs against chair. (>15 seconds w/o arms indicates increased risk of falls in Parkinson's - Francisco, 2011) Gait: Assistive Devices: 4WW/transport chair combination; more cumbersome than traditional 4WW. Assistance Required: Independent. General Gait Description: Reduced foot clearance, bilateral., Start-hesitation. and forward lean into walker. Gait Velocity: 0.74 m/s Norm Data 40-49 50-59 60-69 70-79 80-99 MEN(m/s) 1.43 1.43 1.34 1.26 0.97 WOMEN (m/s) 1.39 1.31 1.24 1.13 0.94 *Above scores indicate average for community dwelling adults (Yulissa, 2011) Examination of Body System Complexity: Moderate Clinical Presentation Complexity: Moderate Treatment Today: Physical Therapy Evaluation - 30 minutes Gait Training - 30 minutes Walker options - discussed pros and cons of 4WW and U-Step devices for Jessica's situation. Education on proper sizing with rationale for walker proximity, upright posture, and maneuverability. Introduced band across back spokes of walker as strategy to assist with stride length, walker proximity, and upright posture. Education as to how this will facilitate stability and safety. With trial of both devices, 4WW is best option to meet her goals. She demonstrates safe use with instruction on brakes, turning, furniture approaches, sit to stand, and turning to sit on seat followingPT instruction. Turning: cue to stay between back wheels of walker at all times, especially with turns. As the walker may get out to the side of her that places her in a position on instability and high risk of fall. Verbalizes/demonstrates understanding with continued practice. ASSESSMENT Therapist Impression: Jessica is a 63 y.o. female with diagnosis of Parkinson's Disease referred to PTfor evaluation and treatment. She is here today with her daughter to assess different walker options. She uses a 4WW/transport chair device out in the community and a lightweight aluminum walker without seat at home. She reports recent falls that have occurred with device at home. She struggles with low BP and dizziness which she contributes to her falls. She will benefit from 4WW with seat and handbreaks for use at home to improve stability, safety, with option for seat as needed when she becomes dizzy. PT recommends 1-2 more visits as Jessica would benefit from skilled PT for additional training and issue of device, as well as further discussion on fall prevention strategies including gait training to address freezing, propulsion, and retropulsion. The above treatments are medically necessary to meet her goals and decrease her future risk of falls. Patient in agreement with this plan. Physical Therapy Practice Pattern: Primary prevention/risk reduction for loss of balance and falling. (5A) Impaired motor function, sensory integration associated with disorder central nervous system (5E). Impairments: Balance deficits. Bradykinesia. Dyskinesia. Gait pattern changes. Freezing of gait. Hypokinesia. Knowledge deficit. Motor fluctuations. Muscle weakness. Postural deviation. Propulsion. Retropulsion. Functional Limitations: Gait instabiltiy. Falls risk. Mobility Restrictions: Limited community ambulation >1 mile. Possible Barriers to Goal Achievement: None apparent. Rehab Prognosis: Good Clinical Decision Complexity: Moderate OVERALL COMPLEXITY: Moderate PLAN Planned Treatment: ADL/Home program. Carepartner instruction. Fall prevention. Cuing strategies. Gait training. Assistive device training. Manual therapy. Neuromuscular re-education. Therapeutic activities. Therapeutic exercise. Plan Next Session: retropulsion strategies, freezing strategies, sit to stand technique, issue 4WW, lift chair options, places to donate walkers Interdisciplinary Referrals: None. Services Recommended: None. Frequency/Duration: 1-2 more visits Estimated Discharge: 90 days. Discharge Plan: Evaluation with recommendations. Satisfactory goals are achieved. Consent: Results of evaluation were reviewed with patient. Patient was receptive to treatment plan and participated in setting goals. Risks, benefits and alternatives to treatment were reviewed. Expected Functional Outcomes: Patient/Carepartner to verbalize understanding of physical therapy recommendations in 90 day(s). Patient to demonstrate independence of home exercise program with updates/progression as indicated in 90 day(s). Patient/Carepartner to verbalize understanding of fall prevention strategies in 90 day(s). Patient/Carepartner to verbalize understanding of appropriate cuing strategies to facilitate safe mobility in 90 day(s). Patient to demonstrate improved gait stability with reduced fall risk (per functional tests) for household and/or community ambulation in 90 day(s). Total Treatment: 60 minutes The play therapist is completed by the therapist and the referring clinician's electronic signature certifies medical necessity for the plan above. Diana Kinsey, PT, DPT Liscence #[id number] documented in this encounter Plan of Treatment Upcoming Encounters Date Type Specialty Care Team Description 06/08/2022 Appointment Neurology Parris Lucas MD [address] [facility] [address] [place] [address] (Wo rk) Scheduled Referrals Name Type Priority Associated Diagnoses Order S chedule Physical Therapy Referral Routine Parkinson's disease ([facility] ) Ordered: 08/21/2018 documented as of this encounter Visit Diagnoses Diagnosis Parkinson's disease ([facility]) - Primary Gait instability Abnormality of gait History of falling Personal history of fall documented in this encounter Care Teams Outsole Beveler Relationship Specialty Start Date End Date Derek Norton MD PCP - General Family Practice 08/21/18 06/17/20 [facility] [address] [place] [address] documented as of this encounter
--- OUTSIDE RECORDS SUMMARY | 2021-12-14 22:52 | XMS_ITS | Encounter Summary ---
:1955 Author Organization [employer] Address [address] [place] [address] Care Team Providers Name Role Phone Prakash Pérez MD Primary Care Provider Encounter Details Date Type Department Care Team Description 12/06/2016 Notes/Orders [facility] Parris Lucas MD [address] [place], [place] [address] [address] [facility] [address] [id number] (Wo rk) Social History Tobacco Use Types Packs/Day Years Used Date Smoking Tobacco: Never Sex Assigned at Date Recorded Not on file documented as of this encounter Plan of Treatment Upcoming Encounters Date Type Specialty Care Team Description 06/08/2022 Appointment Neurology Parris Lucas MD [address] [facility] [address] [facility] [address] [id number] (Wo rk) documented as of this encounter Visit Diagnoses Not on filedocumented in this encounter Care Teams Office System Analyst Relationship Specialty Start Date End Date Prakash Pérez MD PCP - General 03/17/14 08/20/18 [address] [place], [place] [id number] documented as of this encounter
--- OUTSIDE RECORDS SUMMARY | 2021-12-14 22:52 | XMS_ITS | Encounter Summary ---
:1955 Author Organization [employer] Address [address] [place] [address] Care Team Providers Name Role Phone Derek Norton MD Primary Care Provider Reason for Visit Reason Comments Follow-up HALLUCINATIONS Balance/gait Dysfunction balance causing falls Encounter Details Date Type Department Care Team Description 08/29/2019 Office Visit [facility] Parris Lucas MD Parkinson's disease (HRC) (Primary Dx); [facility] [facility] Mild cognitive impairment; [address] Neurogenic orthostatic hypotension (HRC) ; [place], [place] 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 ([facility]) [id number] [phone] (Wo rk) Social History Tobacco Use Types Packs/Day Years Used Date Smoking Tobacco: Never Sex Assigned at Date Recorded Not on file documented as of this encounter Last Filed Vital Signs Vital Sign Reading Time Taken Comments Blood Pressure 144/77 08/29/2019 12:59 PM CDT Pulse 84 08/29/2019 12:59 PM CDT Temperature - - Respiratory Rate - - Oxygen Saturation - - Inhaled Oxygen Concentration - - Weight 58.6 kg (129 lb 3.2 oz) 08/29/2019 12:59 PM CDT Height - - Body Mass Index 19.64 12/26/2016 2:34 PM CDT documented in this encounter Patient Instructions Patient InstructionsParris Lucas MD - 08/29/2019 12:40 PM CDT Please contact us using MyChart or by calling the [facility] nurse line at [phone]. Joselyn Hernandez RN Stop amantadine Get an EKG at the local clinic--get results sent to me Start Nuplazid 34mg/day for hallucinations Return in 4 months documented in this encounter Progress Notes Parris Lucas MD - 08/29/2019 12:40 PM CDT Images from the original note were not included. [address] [place] [address] ANNUAL FOLLOW-UP EXAMINATION SUBJECTIVE Chief Complaint Patient presents with ??? Follow-up ??? HALLUCINATIONS ??? Balance/gait Dysfunction balance causing falls Neurological update and patient concerns This 64 yo pt returns for routine 8 month in-person followup of Parkinson's disease, onset about 2005, followed by me since 2008. She takes florinef, midodrine, remeron, amantadine 1/day, sinemet CR 50/200 at bedtime, and sinemet 25/250 every 2 hours at 5-2-05-1-3-5-7. We have not really heard from her since her last visit in December. SHe is here with her daughter. She continues to have significant balance issues with falls, despite using the walker. On one occasion she fell getting off the sofa, and once when she was rushing somewhere and once when she was just standing and maybe felt dizzy. And she has ongoing issues with hallucinations, which we have not treated in the past. Her weight isalso down another 4 pounds since last fall. She sees her and a young girl, often in the evenings and at night. Past medical history update No new issues Adverse drug reactions Adverse Drug Reactions were reviewed today, and updated on the Health Profile of [facility]. Current medications Reviewed today and updated on Health Profile in [facility]. Outpatient Medications Prior to Visit Medication Sig Dispense Refill ??? acetaminophen (AKA TYLENOL) 325 MG tablet Take 325-650 mg by mouth every 4 hours as needed for Pain. Maximum 4000mg per 24 hours ??? amantadine (SYMMETREL) 100 MG capsule Take 100 mg by mouth daily. ??? Calcium Carbonate 500 MG Take 1.5 Tablets by mouth daily. TUMS ??? carbidopa-levodopa (SINEMET) 25-250 MG tablet 1 pill at [id number] 630 Tablet 3 ??? carbidopa-levodopa (SINEMETCR) 50-200 [...] units and calcium carbonate 500 mg ??? aspirin 81 MG tablet Take 81 mg by mouth daily. No facility-administered medications prior to visit. Family history update No new information to report Social history update 1. Lives in assisted living 2. 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 Driving status: not driving 5. Family involvement, need for assistance: independent 6. Alcohol/tobacco: none 7. Exercise: not much 8. Safety concerns: falls, weight loss 9. Advance health care directive*: on record Review of systems 1. Cognitive: denies concerns 2. Autonomic*: no concerns about orthostatic hypotension, constipation, fecal incontinence, bladder urgency, bladder incontinence, nocturia, urinary retention, delayed gastric emptying, dysphagia, drooling, hyperhidrosis, sexual dysfunction, except for concerns about the following: constipation, dry mouth, drooling 3. Psychiatric* (PQRS measure #290): does not have concerns about psychosis, hallucinations, depression, anxiety, apathy, impulse control, except for concerns about the following: hallucinations 4. Sleep* (PQRS measure #292): does not have concerns about insomnia, sleep fragmentation, nocturnalmotor symptoms, REM behavior disorder, restless legs syndrome, sleep disordered breathing, excessivedaytime sleepiness, except for concerns about the following: vivid dreams 5. Falls in the last 6 months*/assistive device: falls, uses a walker 6. Medication-related motor complications* (wearing off, dyskinesia, dystonia, on/off):freezing, offtimes; 20 percent of waking hours are off 7. Skin: no concerns 8. Weight/nutrition: down a little 9. Other: non OBJECTIVE + Vital Signs: includes sitting and standing blood pressure Vitals: 08/29/19 1259 BP: (!) 144/77 Pulse: 84 Weight: 58.6 kg (129 lb 3.2 oz) + Unified Parkinson's Disease Rating Scale Activities of Daily Living Score (maximum 52): not completed + General: She is thin, appears moderately disabled by her disease + Neurologic exam: cognitive assessment* (PQRS measure #291): She answers some questions, but has some trouble processing information Mild swaying as she sits ASSESSMENT (review of diagnosis and discussion of any atypical features*; PQRS measure #289) (note that the useof the term Parkinson's disease implies a review of disease features according to the [place] PD Brain Bank Diagnostic Criteria) Parkinson's disease, moving into the late stage of the disease with significant cognitive impairmentand hallucinations, orthostatic hypotension, and balance issues (complicated by the concurrent cognitive issues). I will have her get an EKG (to check for long QT) and stop amantadine (not sure what itis adding at this point). We talked about the tension between taking drugs to help her move better, all of which could make hallucinations worse, and taking drugs for hallucinations, which can make themobility worse. Nuplazid is a novel antipsychotic that should not affect motor function. She will return in 3-4 months. We discussed strategies to reduce the risk of falls and to get medications in on time. Pt's daughter was present and supportive. PLAN + Medical and surgical treatment options (PQRS measure #294): See above + This patient is not taking, and should not take, antidopaminergic drugs such as metoclopramide, haloperidol, thorazine, or chlorpromazine.* + Rehabilitation options* (PQRS measure #293): PT, OT, and speech therapy referrals considered but not needed + Safety concerns counseling: falls + Return in 3-4 months Total time: 40 minutes, Counseling time: 35 minutes about issues described in Assessment and Plan Send copy to: ??Dr. Derek Norton, [address], [place] [address] ?? Parris Lucas MD 1:01 PM 08/29/2019 Note: The 11 items marked with an asterisk (*) are [place] [employer] 2015 quality measures for Parkinson's disease (Factor et al, Neurology 86: 2278- 2283, 2016) documented in this encounter Plan of Treatment Upcoming Encounters Date Type Specialty Care Team Description 06/08/2022 Appointment Neurology Parris Lucas MD [address] [facility] [address] [facility] [address] (Wo rk) Scheduled Orders Name Type Priority Associated Diagnoses Order S chedule ECG 12 Lead Outpatient EKG Routine Parkinson's diseas e (HRC) Ordered: 08/29/2019 documented as of this encounter Visit Diagnoses Diagnosis Parkinson's disease (HRC) - Primary Mild cognitive impairment Mild cognitive impairment, so stated 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
--- OUTSIDE RECORDS SUMMARY | 2021-12-14 22:52 | XMS_ITS | Encounter Summary ---
:1955 Author Organization [employer] Address [address] [place] [address] Care Team Providers Name Role Phone Derek Norton MD Primary Care Provider Reason for Visit Reason Comments MEDICATION THERAPY MANAGEMENT Consult/Transfer Care (Routine) - Closed Specialty Diagnoses / Procedures Referred By Contact Refer red To Contact Diagnoses Parkinson's disease (HRC) Parris Lucas MD [address] [facility] [address] [place], [place] [address] Referral ID Status Reason Start Date Expiration Date Visits Requ ested Visits Authorized [id number] Closed 08/21/2018 11/20/2019 1 1 Encounter Details Date Type Department Care Team Description 08/22/2018 [place] Parkinson's moon iseaswilmer (HRC) (Primary Dx); Medication Managemen t PharmD Mild cognitive impairment; [address] [place] [address] [facility] [address] [place] [address] [phone] Social History Tobacco Use Types Packs/Day Years Used Date Smoking Tobacco: Never Sex Assigned at Date Recorded Not on file documented as of this encounter Patient Instructions Patient InstructionsAnne Marie Marshall, PharmD - 08/22/2018 9:30 AM CDT MEDICATION COMMENTS FROM TODAY: Care Plan Suggestions: 1. Take escitalopram 20 mg every day in the morning 2. Take TUMS 500 mg once a day. Goal calcium is 1000 - 1200 mg per day. 3. Multivitamin with Vitamin D 1000 units and calcium 500 mg 4. Move 2nd midodrine dose to 11 AM 5. Move Femara (Letrozole) dose to 9 PM Follow up: September 17 Appt at 1:00 PM (60 min) Anne Marie Marshall PharmD PN RVST OFFICE VISIT (MTM) I offer these suggestions to her and [...] call the clinic, or contact me via [employer]. Anne Marie Marshall, Pharm.D. Medication Management Pharmacist [facility] [phone] documented in this encounter Progress Notes Anne Marie Marshall PharmD - 08/22/2018 9:30 AM CDT Darlene Drew is a 63 y.o. old female who was referred by provider, Dr. Lucas, for medication review/education. Patient???s main concern today is adherence and timing of medications. Social History: Patient is here with daughter Monisha. Monisha is an vocational rehabilitation teacher. Patient's around 3 years ago. Barriers to care: Disease state Adherence: ??? # of times per day patient takes meds: 10 ??? # of missed doses in the past week: 0 ??? Use of supportive adherence tools: alarm, watch goes off when she is due for her blue pill. ??? Med cost concerns: no ??? Medication experiences impacting decision: yes, easily confused when changes are made and dosingtimes are moved. Supplements: pt takes calcium 500 mg daily, multivitamin daily, vitamin-D 4000 units daily, and fishoil 1 g daily. Patient is a limited dairy in her diet. She complains about the calcium tablets beinghurt to swallow. CV Protection: Patient takes aspirin 81 mg daily. Constipation: Patient takes docusate 100 mg daily. No concerns. Breast Cancer: pt takes letrozole 2.5 mg daily. Patient has been in remission for 3 years. Orthostatic Hypotension: Patient takes fludrocortisone 0.1 mg daily and midodrine 10 mg in the morning and 5 mg at noon. Home BP readings: 85/60, 104/71, 131/86, 93/52. Patient denies lightheadedness, dizziness, or any falls. Depression / Anxiety: pt takes mirtazapine 15 mg at bedtime, escitalopram 20 mg daily IF NEEDED, andalprazolam 0.25 mg if needed approximately once a month. Feels that her depression anxiety are up and down. Parkinson's: pt taking sinemet 25/250 mg at 7 am, 9 am, 11 am, 1 pm, 3 pm, 5 pm, and 7 pm, Sinemet CR 50/200 at bedtime and amantadine 100 mg at 7 AM. This includes recent changes from Dr. Lucas to simplify dosing. Objective Adherence: Ability to assess medication adherence objectively: Able. According to prescription vialsbrought to visit, patient adherence is: Good - > 80% adherent to all chronic medications. There were no vitals taken for this visit. BP Readings from Last 3 Encounters: 08/21/18 128/77 03/16/18 124/70 09/12/17 99/65 Calculated 10-year ASCVD Risk: Cardiovascular Risk Summary: Risk for a heart attack or stroke in the next 10 years could not be calculated due to missing data. Missing cholesterol values from recent history.Your cardiovascular risk factors appear to be managed well. Wizard?? Assessment 1. Mental health and escitalopram Adherence: directions not understood Status: Resolved Patient has been taking escitalopram only as needed, she did not realize this medication was supposed to be used on a regular basis. Patient states that she often times feels anxious, her daughter agrees. Education provided. 2. Parkinson's, hypotension, breast cancer and Sinemet, midodrine, and letrozole. Adherence: Complicated regimen, patient confused over dosing times Status: Resolved Patient has a very complicated medication regimen, commonly taking medications almost every hour throughout the day. In addition to her Sinemet taken every 2 hours, she takes other medications in between. Patient becomes easily confused as to what medication to take next. Daughter is also concerned that her mother may not be taking her medications properly. Significant time spent discussing timing ofmedications and coming up with a more simplistic regimen. Patient will move midodrine and letrozole dose to match up with her Sinemet dosing. 3. Bone health and calcium and vitamin-D Adherence: cannot swallow/administer Status: Resolved Patient has not been taking calcium supplements as they are hard for her to swallow. She reports limited dairy in her diet. Patient uses Tums as needed for acid reflux, she did not realize this containing calcium. Discussed taking Tums daily for bone health. Note: She will also be taking a multivitamin that contains an additional 500 mg of calcium with vitamin-D. Plan: 1. Take escitalopram 20 mg every day at 7 AM. 2. Move 2nd midodrine dose to 11 AM Move Letrozole dose to 9 PM 3. Take chewable calcium carbonate 500 mg once a day. Take Multivitamin containing Vitamin D 1000 units and calcium 500 mg once a day. Follow up: September 17 Appt at 1:00 PM (60 min) Anne Marie Marshall PharmD PN RVST OFFICE VISIT (MTM) Total time spent with patient: 60 minutes 60 Updated [employer] med list and reviewed medications including indications with patient. Anne Marie Marshall PharmD Medication Management [place] Follow-up Med [facility] appointment scheduled: yes Added to Care Team: yes Part D: [facility] Letter required: No Completed: Not Applicable Recipient of visit: Patient Medicare CI: no # of DTPs: 3 # of DTPs resolved: 3 Special Populations (HOSDC, TCU, ED/Falls, ESRD, Pillbox): no documented in this encounter Plan of Treatment Upcoming Encounters Date Type Specialty Care Team Description 06/08/2022 Appointment Neurology Parris Lucas MD [address] [facility] [address] [facility] [address] (Wo rk) Scheduled Referrals Name Type Priority Associated Diagnoses Order S chedule Pharmacy-Medication Referral Routine Parkinson's disease O rdered: 08/21/2018 Therapy Management (HRC) documented as of this encounter Visit Diagnoses Diagnosis Parkinson's disease (HRC) - Primary Mild cognitive impairment Mild cognitive impairment, so stated Polypharmacy Issue of repeat prescriptions documented in this encounter Care Teams [employer] Relationship Specialty Start Date End Date Derek Norton MD PCP - General Family Practice 08/21/18 06/17/20 [facility] [address] [place] [address] documented as of this encounter
--- OUTSIDE RECORDS SUMMARY | 2021-12-14 22:52 | XMS_ITS | Encounter Summary ---
:1955 Author Organization [employer] Address [address] [place] [address] Care Team Providers Name Role Phone Prakash Pérez MD Primary Care Provider Reason for Visit Reason Comments Follow-up Midodrine helps with BP/dizz ing. SHOT,FLU given Encounter Details Date Type Department Care Team Description 12/26/2016 Office Visit [facility] Parris Lucas MD Parkinson's disease (HRC) (Primary Dx); [address] [place] [facility] Flu vaccine need; [address] Dyskinesia, drug-induced; [place], [place], [place] Neuro genic orthostatic hypotension (HRC) [id number] [phone] (Wo rk) Social History Tobacco Use Types Packs/Day Years Used Date Smoking Tobacco: Never Sex Assigned at Date Recorded Not on file documented as of this encounter Last Filed Vital Signs Vital Sign Reading Time Taken Comments Blood Pressure 90/52 12/26/2016 2:40 PM CDT Pulse 88 12/26/2016 2:40 PM CDT Temperature - - Respiratory Rate - - Oxygen Saturation - - Inhaled Oxygen Concentration - - Weight 66.5 kg (146 lb 11.2 oz) 12/26/2016 2:34 PM CDT Height 172.7 cm (5' 8) 12/26/2016 2:34 PM CDT Body Mass Index 22.31 12/26/2016 2:34 PM CDT documented in this encounter Patient Instructions Patient InstructionsParris Lucas MD - 12/26/2016 2:20 PM CDT Please call the [facility] nurse line for any questions, concerns or updates, . Chelsie Toribio RN Increase midodrine to 2 pills/day, morning and noon Come to the DBS class if you can Return in 4 months documented in this encounter Progress Notes Parris Lucas MD - 12/26/2016 2:20 PM CDT [address] [place] [address] FOLLOWUP EXAMINATION SUBJECTIVE Chief Complaint Patient presents with ??? Follow-up Midodrine helps with BP/dizzing. Current concerns and update: This 61 yo pt returns for short-term followup of Parkinson's disease. We had started her on midodrine at the last visit, which is helping with her dizziness. She is getting better about taking her sinemet on time, and has noticeably smoother control of motor symptoms as a result. Past Medical History Update: No past medical history on file. Adverse Drug Reactions: Reviewed today and updated on Health Profile in [facility]. Allergies Allergen Reactions ??? Penicillins PN: LW Reaction: Fever ??? Sulfa Antibiotics PN: rash Current Medications: Reviewed today and updated on Health Profile in [facility]. Outpatient Medications Prior to Visit Medication Sig [...] history on file. Social History Update: She lives indepen Review of Systems: Constipation, dizziness, dry mouth, anxiety, f Falls since last visit? No falls OBJECTIVE Vital Signs: (includes sitting and standing blood pressure) Vitals: 12/26/16 1434 12/26/16 1440 BP: 123/69 90/52 Pulse: 79 88 Weight: 66.5 kg (146 lb 11.2 oz) Unified Parkinson's Disease Rating Scale (Part 2) Functional Score (maximum 52): 12 General: She is well dressed and groomed, fully interactive Neurologic exam: No tremor noted Speech is noticeably a little dysarthric today She had mild body-weaving dyskinesia throughout the discussion She chaparro from the chair easily, no freezing or festinating noted ASSESSMENT/PLAN Parkinson's disease, now with orthostatic hypotension. She still had a rather significant BP drop for us in clinic today, and it turned out that she is only taking one midodrine pill in the morning, rather than morning and noon as I had prescribed. I asked her to add a second dose at noon. We also discussed high salt foods and drinks that she might want to have available. I would like her to think about DBS as a possibility, to try to reduce her need for such frequent levodopa dosing. Return in 4 months. She got a flu shot today. Total time/ Counseling time: 25 min, 20 min discussion Send a copy of note to: Dr. Prakash Pérez, [facility], [address] [place] [address] Parris Lucas MD 2:49 PM 12/26/2016 documented in this encounter Plan of Treatment Upcoming Encounters Date Type Specialty Care Team Description 06/08/2022 Appointment Neurology Parris Lucas MD [address] [facility] [address] [facility] [employer] [id number] (Wo rk) documented as of this encounter Visit Diagnoses Diagnosis Parkinson's disease (HRC) - Primary Flu vaccine need Need for prophylactic vaccination and in oculation against influenza Dyskinesia, drug-induced Lack of coordination Neurogenic orthostatic hypotension (HRC) documented in this encounter Care Teams Locomotive Driver Relationship Specialty Start Date End Date Prakash Pérez MD PCP - General 03/17/14 08/20/[address] [place] [address] documented as of this encounter
--- OUTSIDE RECORDS SUMMARY | 2021-12-14 22:52 | XMS_ITS | Encounter Summary ---
:1955 Author Organization [facility] Address [address] [place] [address] Care Team Providers Name Role Phone Derek Norton MD Primary Care Provider Reason for Visit Reason Comments Prior Authorization For Medication Nuplazid (06/26/2019 to 09/23/20) Encounter Details Date Type Department Care Team Description 09/23/2019 Telephone [place] [facility] Chelsie Toribio, Prior Authorization For [address] personnel records clerk ([address] Drive (06/26/2019 to 09/23/20)) [place] [address] Social History Tobacco Use Types Packs/Day Years Used Date Smoking Tobacco: Never Sex Assigned at Date Recorded Not on file documented as of this encounter Nursing Notes Joselyn Hernandez RN - 09/24/2019 12:04 PM CDT Received notice PA was approved in [facility]. Nuplazid Connect updated. Joselyn Hernandez RN - 09/24/2019 10:06 AM CDT Received clinical questions from [facility]. Completed questionnaire and faxed back Awaiting decision. Chelsie Toribio RN - 09/23/2019 1:18 PM CDT Requested PA for Nuplazid through [facility]. documented in this encounter Plan of Treatment Upcoming Encounters Date Type Specialty Care Team Description 06/08/2022 Appointment Neurology Parris Lucas MD [address] [facility] [address] [place] [address] (Wo rk) documented as of this encounter Visit Diagnoses Not on filedocumented in this encounter Care Teams Insole Coverer Relationship Specialty Start Date End Date Derek Norton MD PCP - General Family Practice 08/21/18 06/17/20 [facility] [address] [place] [address] documented as of this encounter
--- OUTSIDE RECORDS SUMMARY | 2021-12-14 22:52 | XMS_ITS | Encounter Summary ---
:1955 Author Organization [employer] Address [address] [place] [address] Care Team Providers Name Role Phone Derek Norton MD Primary Care Provider Reason for Visit Reason Comments UPDATE Encounter Details Date Type Department Care Team Description 09/10/2019 Telephone [facility] Joselyn Hernandez, RN UPDATE [address] [place] [address] Social History Tobacco Use Types Packs/Day Years Used Date Smoking Tobacco: Never Sex Assigned at Date Recorded Not on file documented as of this encounter Nursing Notes Parris Lucas MD - 09/11/2019 7:09 AM CDT Ok, sounds like no action needed, other than daughter supervising pt's medication use. This points out how fragile she is, if she is off by one pill it tips her over the edge cognitively-- Joselyn Hernandez, RN - 09/10/2019 4:01 PM CDT Spoke with patient's daughter. She states yesterday the patient was very confused, couldn't sleep, mixing her medications all together, etc. The daughter was concerned it was a withdrawal from stoppingthe amantadine for the upcoming EKG. The patient had accidentally taken two 7am medication doses (which was discovered at some point between 7am yesterday and this morning. Patient is feeling much better today and acting as she normally does. Dr. Lucas - Any additional input? documented in this encounter Plan of Treatment Upcoming Encounters Date Type Specialty Care Team Description 06/08/2022 Appointment Neurology Parris Lucas MD [address] [facility] [address] [place] [address] (Wo rk) documented as of this encounter Visit Diagnoses Not on filedocumented in this encounter Care Teams General Internist Relationship Specialty Start Date End Date Derek Norton MD PCP - General Family Practice 08/21/18 06/17/20 [facility] [address] [place] [address] documented as of this encounter
--- OUTSIDE RECORDS SUMMARY | 2021-12-14 22:52 | XMS_ITS | Encounter Summary ---
:1955 Author [facility] Address [address] [place] [address] Care Team Providers Name Role Phone Prakash Pérez MD Primary Care Provider Reason for Visit Reason Comments Refill Encounter Details Date Type Department Care Team Description 05/28/2018 Refill [facility] Africa Lucas MD Refill [address] [facility] [address] [place], [place] [address] [place], [place] [phone] (Wo rk) Social History Tobacco Use Types Packs/Day Years Used Date Smoking Tobacco: Never Sex Assigned at Date Recorded Not on file documented as of this encounter Nursing Notes Darío Smith RN - 05/29/2018 8:25 AM CDT Renewed medication per medication refill protocol. Requested Prescriptions Signed Prescriptions Disp Refills ??? mirtazapine (REMERON) 15 MG tablet 90 Tablet 4 Sig: TAKE ONE TABLET BY MOUTH AT BEDTIME Authorizing Provider: AFRICA LUCAS Ordering User: DARÍO SMITH documented in this encounter Plan of Treatment Upcoming Encounters Date Type Specialty Care Team Description 06/08/2022 Appointment Neurology Africa Lucas MD [address] [facility] [address] [facility] [id number] (Wo rk) documented as of this encounter Visit Diagnoses Not on filedocumented in this encounter Care Teams Louver Door Assembler Relationship Specialty Start Date End Date Prakash Pérez MD PCP - General 03/17/14 08/20/18 [address] [place] [address] documented as of this encounter
--- OUTSIDE RECORDS SUMMARY | 2021-12-14 22:52 | XMS_ITS | Encounter Summary ---
:1955 Author Organization [employer] Address [address] [place] [address] Care Team Providers Name Role Phone Prakash Pérez MD Primary Care Provider Reason for Visit Reason Comments Follow-up right shoulder/neck buzzing /tingling DROOLING noticing that she's having m ore saliva; uses gum to help her remember to swallow Fall near falls and falls (last f all approximately 1 mo ago) - uses walker sometimes Other feel nauseated after eating Encounter Details Date Type Department Care Team Description 03/16/2018 Office Visit [place] [facility] Parris Lucas MD Parkinson's disease (HRC) (Primary Dx); [address] [facility] ogenic orthostatic hypotension (HRC); [address] [place] [id number] (Wo rk) Social History Tobacco Use Types Packs/Day Years Used Date Smoking Tobacco: Never Sex Assigned at Date Recorded Not on file documented as of this encounter Last Filed Vital Signs Vital Sign Reading Time Taken Comments Blood Pressure 124/70 03/16/2018 1:29 PM SITE COORDINATOR Pulse 87 03/16/2018 1:29 PM SITE COORDINATOR Temperature - - Respiratory Rate - - Oxygen Saturation - - Inhaled Oxygen Concentration - - Weight 62.1 kg (137 lb) 03/16/2018 1:27 PM SITE COORDINATOR Height - - Body Mass Index 20.83 12/26/2016 2:34 PM CDT documented in this encounter Patient Instructions Patient InstructionsParris Lucas MD - 03/16/2018 1:20 PM CST Please call the [facility] nurse line for any questions, concerns or updates, . Irina Cobos RN Don't carry anything with both hands! Increase the 8am and noon sinemet doses from two yellow pills to one sinemet 25/250 blue pill! Call with results Check in with the PCP about nausea after meals Return in July or August COORDINATOR documented in this encounter Progress Notes Parris Lucas MD - 03/16/2018 1:20 PM CST Images from the original note were not included. [address] [place] [address] ANNUAL FOLLOW-UP EXAMINATION SUBJECTIVE Chief Complaint Patient presents with ??? Follow-up right shoulder/neck buzzing/tingling ??? DROOLING noticing that she's having more saliva; uses gum to help her remember to swallow ??? Fall near falls and falls (last fall approximately 1 mo ago) - uses walker sometimes ??? Other feel nauseated after eating Neurological update and patient concerns This 62 yo pt returns for routine 6 month followup of Parkinson's disease, onset about 2005, followed by me since 2008. Her issues today are excess saliva, uses gum to remind her to swallow. She has falls and near falls,last time was when she was carrying a flower pot. And finally, she has nausea after eating, a new symptom. Her weight is down 5 pounds since September, and 10-15 pounds since 2017. Her daughter says that, in general, she is doing much better since she moved to her new living situation, more social interaction, etc. Past medical history update No new health issues Adverse drug reactions Adverse Drug Reactions were reviewed today, and updated on the Health Profile of [facility]. Current medications Reviewed today and updated on Health Profile in [facility]. Outpatient Medications Prior to Visit [...] total 10 tablet daily 900 Tab 3 ??? carbidopa-levodopa (SINEMETCR) 50-200 MG controlled [...] 4 ??? mirtazapine (REMERON) 15 MG tablet Take [...] report Social history update 1. Lives in an apt alone 2. Work status: not working 3. 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 Driving status: she is not driving 5. Family involvement, need for assistance: independent 6. Alcohol/tobacco: none 7. Exercise: 3 days/week 8. Safety concerns: falls 9. Advance health care directive*: she has one, not in our records Review of systems 1. Cognitive: no major concerns 2. Autonomic*: no concerns about orthostatic hypotension, constipation, fecal incontinence, bladder urgency, bladder incontinence, nocturia, urinary retention, delayed gastric emptying, dysphagia, drooling, hyperhidrosis, sexual dysfunction, except for concerns about the following: nausea after eating, bladder urgency 3. Psychiatric* (PQRS measure #290): does not have concerns about psychosis, hallucinations, depression, anxiety, apathy, impulse control, except for concerns about the following: some depression 4. Sleep* (PQRS measure #292): does not have concerns about insomnia, sleep fragmentation, nocturnalmotor symptoms, REM behavior disorder, restless legs syndrome, sleep disordered breathing, excessivedaytime sleepiness, except for concerns about the following: no major concerns 5. Falls in the last 6 months*/assistive device: no falls, some near falls 6. Medication-related motor complications* (wearing off, dyskinesia, dystonia, on/off):not noted; 0 percent of waking hours are off 7. Skin: no concerns 8. Weight/nutrition: mild weight loss 9. Other: no other new issues OBJECTIVE + Vital Signs: includes sitting and standing blood pressure Vitals: 03/16/18 1327 03/16/18 1329 BP: (!) 150/82 124/70 Pulse: 79 87 Weight: 62.1 kg (137 lb) + Unified Parkinson's Disease Rating Scale Activities of Daily Living Score (maximum 52): 17 + General: She is thin, but well dressed and groomed, appears fully interactive, pleasant + Neurologic exam: cognitive assessment* (PQRS measure #291): She rpovides most of her own history no tremor, no dyskinesia noted She rises from the chair independently, walks with some initial freezing and some stutter on the turns, but does pretty well in between She looks in general just a little slow ASSESSMENT (review of diagnosis and discussion of any atypical features*; PQRS measure #289) (note that the useof the term Parkinson's disease implies a review of disease features according to the [place] [employer] Brain Bank Diagnostic Criteria) Parkinson's disease, a little undertreated in general. I will bump up the 8am and noon sinemet dosesto a 25/250 pill instead of two 25/100s. I will not give her medications for saliva, as I did not see any drooling. We discussed strategies to avoid falls. She needs to check in with her doctor about nausea after meals, I would not attribute that to Parkinson's disease, and there are any number of GI conditions that could present with that symptom. I willsee her back in 5 months or so. PLAN + Medical and surgical treatment options (PQRS measure #294): Increase sinemet to 25/250 at 8 and noon + This patient is not taking, and [...] Safety concerns counseling: falls + Return in 5 months Total time: 25 minutes, Counseling time: 20 minutes about issues described in Assessment and Plan Send copy to: Dr. Derek Norton, [address] [place] [address] Parris Lucas MD 1:48 PM 03/16/2018 Note: The 11 items marked with an asterisk (*) are [place] [employer] 2015 quality measures for Parkinson's disease (Factor et al, Neurology 86: 2278- 2283, 2016) COORDINATOR documented in this encounter Plan of Treatment Upcoming Encounters Date Type Specialty Care Team Description 06/08/2022 Appointment Neurology Parris Lucas MD [address] [facility] [address] [facility] [address] [address] (Wo rk) documented as of this encounter Visit Diagnoses Diagnosis Parkinson's disease (HRC) - Primary Neurogenic orthostatic hypotension (HRC) Abnormal weight loss Loss of weight documented in this encounter Care Teams Frame Table Operator Helper Relationship Specialty Start Date End Date Prakash Pérez MD PCP - General 03/17/14 08/20/[address] [place] [address] documented as of this encounter
--- OUTSIDE RECORDS SUMMARY | 2021-12-14 22:52 | XMS_ITS | Encounter Summary ---
:1955 Author [facility] Address [address] [place] [address] Care Team Providers Name Role Phone Derek Norton MD Primary Care Provider Reason for Visit Reason Comments Refill Encounter Details Date Type Department Care Team Description 08/10/2019 Refill [place] [facility] Africa Lucas MD Refill [address] [facility] [address] [place], [place] [address] [place], [place] [phone] (Wo rk) Social History Tobacco Use Types Packs/Day Years Used Date Smoking Tobacco: Never Sex Assigned at Date Recorded Not on file documented as of this encounter Nursing Notes Darío Smith, RN - 08/12/2019 10:13 AM CDT Renewed medication per medication refill protocol. Requested Prescriptions Signed Prescriptions Disp Refills ??? mirtazapine (REMERON) 15 MG tablet 90 Tablet 2 Sig: TAKE ONE TABLET BY MOUTH AT BEDTIME Authorizing Provider: AFRICA LUCAS Ordering User: DARÍO SMITH documented in this encounter Plan of Treatment Upcoming Encounters Date Type Specialty Care Team Description 06/08/2022 Appointment Neurology Africa Lucas MD [address] [facility] [address] [facility] [id number] (Wo rk) documented as of this encounter Visit Diagnoses Not on filedocumented in this encounter Care Teams Gas Maker Helper Relationship Specialty Start Date End Date Derek Norton MD PCP - General Family Practice 08/21/18 06/17/20 [facility] [address] [place] [address] documented as of this encounter
--- OUTSIDE RECORDS SUMMARY | 2021-12-14 22:52 | XMS_ITS | Encounter Summary ---
:1955 Author Organization [employer] Address [address] [place] [address] Care Team Providers Name Role Phone Derek Norton MD Primary Care Provider Reason for Visit Reason Comments Balance/gait Dysfunction Encounter Details Date Type Department Care Team Description 08/28/2018 Office Visit [facility] Diana Kinsey nson's disease (HRC) (Primary Dx); Therapy K, PT Gait instability; [address] [place] [address] [place], [place] [id number] Social History Tobacco Use Types Packs/Day Years Used Date Smoking Tobacco: Never Sex Assigned at Date Recorded Not on file documented as of this encounter Progress Notes Diana Kinsey PT - 08/28/2018 12:30 PM CDT Physical Therapy Progress Note Time of Day: 12:30pm Visit: 2 of 2-3 recommended Referring MD: Dr. Lucas Subjective: -Patient reported: It has been about a week since she started new meds and that has made a huge difference. -Falls reported since last visit/circumstances: None. -Pain: None. Objective: -Mood: Pleasant. Cooperative -Orientation: Alert. -Cooperation: Good. -Communication: Low volume. Daughter provides majority of communication. -Support system present: Daughter, Monisha. Treatment Today: Therapeutic Activities: Transport chair: introduced transport chair as better option that current transport/walker she is currently using. Discussed benefits of narrow width, supporting back rest, and supervisor sunglasses weight to improve ease of pushing. They are very interested in this as current device is unsupportive and uncomfortable. Discussed different resources for them to shop around to decide what device is best for them. Lift chair: they seek guidance as to what to look for in lift chair. There is no one brand or style recommended for everyone with PD. Education on seating considerations: seat should be appropriate depth so that she can sit with hips squared back in chair with feet resting flat on floor. Seat width should be comfortable resting in the middle with each arm equally supported on arm rest to avoid leaning to one side or the other. She is able to operate controls without difficulty after initial instruction. Cued her to only raise chair as high as she needs to to be able to get out using her legs - thiswill help keep her legs stronger which is crucial with PD/aging. Gait traininWW training/issue ?? Sized walker to appropriate height. Reviewed technique for sit to stand, furniture approach, turning to sit on seat of walker. She does so without difficulty. ?? They are purchasing out of pocket today. ?? Added orange theraband across back spokes of walker as visual cue to facilitate walker proximity.It is helpful initially but requires additional cues as distance progresses. Cued her to stand tall with elbows tucked into sides. She is more stable, especially with turns, as she maintains walker proximity. ?? This device will be a significant improvement to stability and mobility compared to 2WW she is currently using at home. Skilled teaching: Fall prevention. Activity recommendations. Home Exercise Program: exercise classes in her building, daily walks. Provided written instructions for exercises listed above Interdisciplinary communication: none -Motor Function: On. Assessment -Impairments addressed in today's session: Hypokinesia. Strength deficits. ROM deficits/muscle rigidity. Balance deficits. Gait pattern deficits. -Functional outcomes addressed during treatment session today and progress toward goals: Patient will greatly benefit form use of 4WW to improve stability with mobility at home to reduce falls and keepher more active. We discussed several different options for transport chairs and lift chairs. Provided with PT card should they have more questions arise. Monisha felt instruction was helpful in guiding them towards the right choice for Jessica. Encouraged them to use 1 additional visit to address PD specific gait/balance concerns in greater detail to ensure home program is adequately addressing her needs. Skilled PT is required to address deficits, provide education and exercise training to reduce potential for additional falls. Plan: address freezing, retropulsion, propulsion, walker proximity with pool noodles under arms. Procedures: Neuromuscular Re-education (CPT 20786) 30 minutes. Gait Training (CPT 92918) 30 minutes. Total Treatment Time: 60 minutes Diana Kinsey PT, DPT [facility] #[id number] documented in this encounter Plan of Treatment Upcoming Encounters Date Type Specialty Care Team Description 06/08/2022 Appointment Neurology Parris Lucas MD [address] [facility] [address] [facility] [id number] (Wo rk) documented as of this encounter Visit Diagnoses Diagnosis Parkinson's disease (HRC) - Primary Gait instability Abnormality of gait History of falling Personal history of fall documented in this encounter Care Teams Window Machine Operator Relationship Specialty Start Date End Date Derek Norton MD PCP - General Family Practice 08/21/18 06/17/20 [facility] [address] [place] [address] documented as of this encounter
--- OUTSIDE RECORDS SUMMARY | 2021-12-14 22:52 | XMS_ITS | Encounter Summary ---
:1955 Author Organization [employer] Address [address] [place] [address] Care Team Providers Name Role Phone Derek Norton MD Primary Care Provider Reason for Referral Therapies (Routine) - Closed Specialty Diagnoses / Procedures Referred By Contact Refer red To Contact Diagnoses Parkinson's disease (HRC) Parris Lucas MD [address] [facility] [address] [place], [place] [address] Referral ID Status Reason Start Date Expiration Date Visits Requ ested Visits Authorized [id number] Closed 12/19/2019 12/18/2020 1 1 Scheduling Instructions This order is [...] ask your clinician's staff to assist you. 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); [place], [place] Neuro genic orthostatic hypotension (HRC); [id number] Dysphagia, unspecified type [phone] (Wo rk) Social History Tobacco Use Types Packs/Day Years Used Date Smoking Tobacco: Never Sex Assigned at Date Recorded Not on file documented as of this encounter Last Filed Vital Signs Vital Sign Reading Time Taken Comments Blood Pressure 100/57 12/19/2019 1:23 PM CDT Pulse 76 12/19/2019 1:23 PM CDT Temperature - - Respiratory Rate - - Oxygen Saturation - - Inhaled Oxygen Concentration - - Weight 66.8 kg (147 lb 4.8 oz) 12/19/2019 1:22 PM CDT Height - - Body Mass Index 22.4 12/26/2016 2:34 PM CDT documented in this encounter Patient Instructions Patient InstructionsParris Lucas MD - 12/19/2019 1:10 PM CDT Please contact us using MyStreamt or by calling the [facility] [place] nurse line at [phone]. Joselyn Hernandez RN Increase fludrocortisone 0.1mg to 2 pills in the morning Stand up slowly! For both balance reasons and dizziness reasons See speech pathology locally about swallowing issues Return in 6 months or as needed documented in this encounter Progress Notes Parris Lucas MD - 12/19/2019 1:10 PM CDT Images from the original note were not included. [address] [place] [address] FOLLOWUP EXAMINATION SUBJECTIVE Chief Complaint Patient presents with ??? Follow-up ??? FALL ??? DIZZINESS ??? HALLUCINATIONS improving Current concerns and update: This visit was conducted: in person. The patient was in the clinic and the doctor was at [facility]. The patient-facing part of the visit began at 1:26 and ended at 1:55pm. THis 64 yo pt returns for 4 month followup of late-stage Parkinson's disease, onset 2005, with cognitive impairment, hallucinations, and orthostatic hypotension. At the last visit, I started Nuplazid for hallucinations. We have had several calls from pt's daughter since then; pt has recently moved into assisted living (end of October), and has occasional falls and increasing cognitive issues. She hasdone well since the move. She continues to have hallucinations of people in her room, a little more able to sort through them than she was before. She has had some falls, is having dizziness when she stands up, and BP is low sitting and standing. She is having some R shoulder pain, working with PT on that. Her daughter seems much happier. She notes that swallowing is more difficult, but no overt choking. Past Medical History Update: No past medical history on file. Adverse Drug Reactions: Reviewed today and updated on Health Profile in [facility]. Allergies Allergen Reactions ??? Penicillins PN: LW Reaction: Fever ??? Sulfa Antibiotics PN: rash Current Medications: Reviewed today and updated on Health Profile in [facility]. Outpatient Medications Prior to Visit Medication [...] TUMS ??? carbidopa-levodopa (SINEMET) 25-250 MG tablet Take 1 tab po at 7am, 9am, 11am, 1pm, 2:50pm, 5pm and 7pm ??? carbidopa-levodopa (SINEMETCR) 50-200 MG controlled release tablet 1 at 9pm (Patient taking differently: Take 1 Tablet by mouth daily at bedtime. 9pm) 90 Tablet 4 ??? Docusate Calcium (STOOL SOFTENER OR) Take 2 Tablets by mouth daily at bedtime. ??? escitalopram oxalate (LEXAPRO) 20 MG tablet Take 20 mg by mouth daily. ??? fludrocortisone (FLORINEF) 0.1 MG tablet Take 1 Tablet by mouth daily. (Patient taking differently: Take 0.1 mg by mouth daily. 7am) 90 Tablet 3 ??? letrozole (AKA FEMARA) 2.5 [...] units and calcium carbonate 500 mg ??? Pimavanserin Tartrate (NUPLAZID) 34 MG CAPS Take 34 mg by mouth daily. 90 Capsule 3 ??? carbidopa-levodopa (SINEMET) 25-250 MG tablet 1 pill at [id number] 630 Tablet 3 ??? escitalopram oxalate (AKA LEXAPRO) 10 MG tablet Take 20 mg by mouth Daily. ??? midodrine (PROAMATINE) 5 MG tablet TAKE TWO TABLETS BY MOUTH EVERY MORNING AND 1 TABLET AT NOON 270 Tablet 3 ??? Pimavanserin Tartrate (NUPLAZID) 34 MG CAPS Take 34 mg by mouth daily. Lot: [id number], exp: 04/05/2021, Hall 14 Capsule 0 ??? Pimavanserin Tartrate (NUPLAZID) 34 MG CAPS Take 34 mg by mouth daily. Lot: [id number] exp: 04/05/2021 7 Capsule 0 No facility-administered medications prior to visit. Family History Update: No family history on file. Social History Update: She is in assisted living/memory care Review of Systems: Bladder issues, dizziness when she stands up, slow thinking, hallucinations, anxiety, falls, uses a walker, sleep issues; ongoing R shoulder pain Falls since last visit? She has had an occasional fall OBJECTIVE Vital Signs: (includes sitting and standing blood pressure) Vitals: 12/19/19 1322 12/19/19 1323 BP: 123/72 100/57 Pulse: 75 76 Weight: 66.8 kg (147 lb 4.8 oz) Unified Parkinson's Disease Rating Scale (Part 2) Functional Score (maximum 52): 17 General: She is well dressed and groomed Neurologic exam: She is slow to respond, but does answer questions She is able to describe her hallucinations of people, mostly not disturbing, and mostly go away if she tells them to No tremor She rocks back and forth a little, picks at things some She walks independently with the walker ASSESSMENT/PLAN Parkinson's disease, late stages, with cognitive issues, hallucinations. She is in a new living situation, gaining weight, and both pt and daughter seem quite pleased with the situation. I wrote to increase the florinef to 2 pills, as her BP is just generally quite low. She had trace edema in the L leg, which could get worse with the increase in florinef; I asked them to watch for that. We discussed standing up slowly, which I'm sure the pt will forget. I will send her to speech pathology to look atswallowing, as the pt noted that swallowing is hard at times (although no choking). The hallucinations are currently manageable, but we discussed what to do if they escalate (we would have to add a second drug). We discussed but did not start medication for dementia; I thought it was reasonable to see how much she perks up with good nutrition, interaction, and exercise. I will see her back in 6 months. Total time (includes chart review, discussion with other health professionals, charting) 40 min Examination and Counseling time (time with the patient): 29 min Send a copy of note to: ??Dr. Derek Norton, [address] [place] [id number] ?? 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
--- OUTSIDE RECORDS SUMMARY | 2021-12-14 22:52 | XMS_ITS | Encounter Summary ---
:1955 Author Organization [facility] Address [address] [place] [address] Care Team Providers Name Role Phone Prakash Pérez MD Primary Care Provider Reason for Visit Reason Comments Refill Encounter Details Date Type Department Care Team Description 06/11/2018 Refill [facility] Africa Lucas MD Refill [address] [facility] [address] [place], [place] [address] [place], [place] [id number] (Wo rk) Social History Tobacco Use Types Packs/Day Years Used Date Smoking Tobacco: Never Sex Assigned at Date Recorded Not on file documented as of this encounter Nursing Notes Darío Smith RN - 06/11/2018 9:39 AM CDT Renewed medication per medication refill protocol. Requested Prescriptions Signed Prescriptions Disp Refills ??? carbidopa-levodopa (SINEMETCR) 50-200 MG controlled release tablet 90 Tablet 4 Sig: TAKE ONE TABLET BY MOUTH AT BEDTIME Authorizing Provider: AFRICA LUCAS Ordering User: DARÍO SMITH documented in this encounter Plan of Treatment Upcoming Encounters Date Type Specialty Care Team Description 06/08/2022 Appointment Neurology Africa Lucas MD [address] [facility] [address] [facility] [id number] (Wo rk) documented as of this encounter Visit Diagnoses Not on filedocumented in this encounter Care Teams Barrel Rifler Button Relationship Specialty Start Date End Date Prakash Pérez MD PCP - General 03/17/14 08/20/[address] [place] [address] documented as of this encounter
--- OUTSIDE RECORDS SUMMARY | 2021-12-14 22:53 | XMS_ITS | Encounter Summary ---
:1955 Author Organization [employer] Address [address] [place] [address] Care Team Providers Name Role Phone Prakash Pérez MD Primary Care Provider Reason for Visit Reason Onset Date Comments Refill 01/21/2016 Xanax 0.25mg Encounter Details Date Type Department Care Team Description 01/20/2016 Refill [facility] Parris Lucas MD Refill (Xanax 0.25mg) [address] [place], [place] [address] [address] [place] [address] (Wo rk) Social History Tobacco Use Types Packs/Day Years Used Date Smoking Tobacco: Never Sex Assigned at Date Recorded Not on file documented as of this encounter Nursing Notes Irina Cobos RN - 01/22/2016 8:19 AM CST Signed Rx faxed to pharmacy. LY LAW ATTORNEY Gina Briceno RN - 01/21/2016 7:46 AM CST Pt last seen 01/01/16. No change in medication. Dr Lucas, order pended, if agree please print and sign. LY LAW ATTORNEY documented in this encounter Plan of Treatment Upcoming Encounters Date Type Specialty Care Team Description 06/08/2022 Appointment Neurology Parris Lucas MD [address] [place] [facility] [address] [facility] [address] [address] (Wo rk) documented as of this encounter Visit Diagnoses Not on filedocumented in this encounter Care Teams Story Teller Relationship Specialty Start Date End Date Prakash Pérez MD PCP - General 03/17/14 08/20/18 [address] [place] [address] documented as of this encounter
--- OUTSIDE RECORDS SUMMARY | 2021-12-14 22:53 | XMS_ITS | Encounter Summary ---
:1955 Author Organization [facility] Address [address] [place] [address] Care Team Providers Name Role Phone Prakash Pérez MD Primary Care Provider Reason for Visit Reason Comments Refill Encounter Details Date Type Department Care Team Description 03/30/2015 Refill [facility] Parris Lucas MD Refill [address] [place] [address] [place], [place] [address] [place] [address] [phone] (Wo rk) Social History Tobacco Use Types Packs/Day Years Used Date Smoking Tobacco: Never Assessed Sex Assigned at Date Recorded Not on file documented as of this encounter Nursing Notes Chelsie Toribio RN - 03/31/2015 9:46 AM CST Faxed signed RX to number listed. ER HELPER Irina Cobos RN - 03/30/2015 11:59 AM CST Patient last seen on 12/05/14 - no changes in this medication at this time. Dr. Lucas - please print and sign for order if you agree. Thanks! We will fax to pharmacy once signed. Fax #: [phone] ER HELPER documented in this encounter Plan of Treatment Upcoming Encounters Date Type Specialty Care Team Description 06/08/2022 Appointment Neurology Parris Lucas MD [address] [place] [facility] [address] [place] [address] [address] (Wo rk) documented as of this encounter Visit Diagnoses Not on filedocumented in this encounter Care Teams Change Management Manager Relationship Specialty Start Date End Date Prakash Pérez MD PCP - General 03/17/14 08/20/[address] [place] [address] documented as of this encounter
--- OUTSIDE RECORDS SUMMARY | 2021-12-14 22:53 | XMS_ITS | Encounter Summary ---
:1955 Author Organization [facility] Address [address] [place] [address] Care Team Providers Name Role Phone Prakash Pérez MD Primary Care Provider Encounter Details Date Type Department Care Team Description 10/24/2014 [facility] Pain in joint, lower leg, [address] right [place], [place] [id number] Social History Tobacco Use Types Packs/Day Years Used Date Smoking Tobacco: Never Assessed Sex Assigned at Date Recorded Not on file documented as of this encounter Plan of Treatment Upcoming Encounters Date Type Specialty Care Team Description 06/08/2022 Appointment Neurology Parris Lucas MD [address] [facility] [address] [facility] N [id number] (Wo rk) documented as of this encounter Procedures Procedure Name Priority Date/Time Associated Diagnosis Comme nts XR KNEE LT 3 VIEWS Routine 10/24/2014 11:11 AM Pain in joint, lower Results for this CDT leg, right procedure are i n the results section. documented in this encounter Results XR Knee Rt 4 Views (10/24/2014 11:11 AM CDT) Anatomical Region Laterality Modality Lower Extremity, Knee Other Specimen (Source) Anatomical Location Collection Method / Collectio n Time Received Time / Laterality Volume Narrative 10/24/2014 11:23 AM CDT COMPARISON: ??None. FINDINGS: ??There is mild bilateral medi al compartment joint space narrowing with degenerative spur formation. There are slight degenerative changes of the bilateral patellofemoral joints. Views of the bilateral knees are otherwise normal. Procedure Note Chintan Reese MD - 08/23/2015For matting of this note might be different from the original. COMPARISON: None. FINDINGS: There is mild bilateral medial compartment joint space narrowing with degenerative spur formation. There are slight degenerative changes of the bilateral patellofemoral joints. Views of the bilateral knees are otherwise normal. Carter MONSALVE GD XR Knee Lt 3 Views (10/24/2014 11:11 AM CDT) Anatomical Region Laterality Modality Lower Extremity, Knee Other Specimen (Source) Anatomical Location Collection Method / Collectio n Time Received Time / Laterality Volume Narrative 10/24/2014 11:23 AM CDT COMPARISON: ??None. FINDINGS: ??There is mild bilateral medi al compartment joint space narrowing with degenerative spur formation. There are slight degenerative changes of the bilateral patellofemoral joints. Views of the bilateral knees are otherwise normal. Procedure Note Chintan Reese MD - 08/23/2015For matting of this note might be different from the original. COMPARISON: None. FINDINGS: There is mild bilateral medial compartment joint space narrowing with degenerative spur formation. There are slight degenerative changes of the bilateral patellofemoral joints. Views of the bilateral knees are otherwise normal. Carter Alicea MD RAD GD documented in this encounter Visit Diagnoses Diagnosis Pain in joint, lower leg, right Pain in joint, lower leg, right documented in this encounter Care Teams Construction Foreman Relationship Specialty Start Date End Date Prakash Pérez MD PCP - General 03/17/14 08/20/[address] [place] [address] documented as of this encounter
--- OUTSIDE RECORDS SUMMARY | 2021-12-14 22:53 | XMS_ITS | Encounter Summary ---
:1955 Author Organization [facility] Address [address] [place] [address] Care Team Providers Name Role Phone Prakash Pérez MD Primary Care Provider Encounter Details Date Type Department Care Team Description 10/31/2016 Notes/Orders [facility] Diann Cunningham, [address] ruby PT [place], [place] [address] [address] [phone] [place] [address] (Wo rk) Social History Tobacco Use Types Packs/Day Years Used Date Smoking Tobacco: Never Sex Assigned at Date Recorded Not on file documented as of this encounter Discharge Summaries Diann Cunningham, PT - 10/31/2016 7:57 AM CDT Encounter Date: 10/31/2016 Pt : 1955 [facility] Physical Therapy Discharge Summary Patient was evaluated on 09/26/2016 and a treatment plan for further care was established, however she did not return for follow up appointments as planned. Patient phoned and cancelled all rehab follow up visits Standardized test results and goal achievement: Please refer to the initial evaluation for any standardized tests performed as well as the planned goals of therapy treatment. Unable to provide follow up test results as patient did not return to reassess. documented in this encounter Plan of Treatment Upcoming Encounters Date Type Specialty Care Team Description 06/08/2022 Appointment Neurology Parris Lucas MD [address] [place] [facility] [address] [place] [address] [address] (Wo rk) documented as of this encounter Visit Diagnoses Not on filedocumented in this encounter Care Teams Machine Stuffer Automatic Relationship Specialty Start Date End Date Prakash Pérez MD PCP - General 03/17/14 08/20/[address] [place] [address] documented as of this encounter
--- OUTSIDE RECORDS SUMMARY | 2021-12-14 22:53 | XMS_ITS | Encounter Summary ---
:1955 Author Organization [employer] Address [address] [place] [address] Care Team Providers Name Role Phone Prakash Pérez MD Primary Care Provider Reason for Visit Reason Comments UPDATE Encounter Details Date Type Department Care Team Description 03/26/2015 Telephone [facility] Irina Oreilly, RN UPDATE [address] [place] [address] Social History Tobacco Use Types Packs/Day Years Used Date Smoking Tobacco: Never Assessed Sex Assigned at Date Recorded Not on file documented as of this encounter Nursing Notes Parris Lucas MD - 03/26/2015 1:12 PM CST I spoke with her, provided a little support CHILLA MACHINE OPERATOR Parris Lucas MD - 03/26/2015 1:04 PM CST ugh. I am sorry to hear about that. Please let us know anything we can do to help-- CHILLA MACHINE OPERATOR Irina Cobos, VIOLA - 03/26/2015 9:[address] Lucas - [facility] - patient wanted to let you know she was just diagnosed with breast cancer. Will know of staging next Monday. She said she will keep us informed. Gave verbal support and told patient we are here if she needs anything. She shared that this is not her first time dealing with cancer, butit was not something she expected. Gave her the number to medical records to have records transferred to the provider she is working with - she wasn't sure if the provider was a Janie Sher provider. CHILLA MACHINE OPERATOR documented in this encounter Plan of Treatment Upcoming Encounters Date Type Specialty Care Team Description 06/08/2022 Appointment Neurology Parris Lucas MD [address] [facility] [address] [facility] [place] [address] [address] (Wo rk) documented as of this encounter Visit Diagnoses Not on filedocumented in this encounter Care Teams Career Development Counselor Relationship Specialty Start Date End Date Prakash Pérez MD PCP - General 03/17/14 08/20/[address] [place] [address] documented as of this encounter
--- OUTSIDE RECORDS SUMMARY | 2021-12-14 22:53 | XMS_ITS | Encounter Summary ---
:1955 Author Organization [facility] Address [address] [place] [address] Care Team Providers Name Role Phone Prakash Pérez MD Primary Care Provider Encounter Details Date Type Department Care Team Description 10/24/2014 Imaging [facility] Pain in joint, lower leg, [address] [place], [place] [address] Social History Tobacco Use Types Packs/Day Years Used Date Smoking Tobacco: Never Assessed Sex Assigned at Date Recorded Not on file documented as of this encounter Plan of Treatment Upcoming Encounters Date Type Specialty Care Team Description 06/08/2022 Appointment Neurology Parris Lucas MD [address] [facility] [address] [facility] N [id number] (Wo rk) documented as of this encounter Procedures Procedure Name Priority Date/Time Associated Diagnosis Comme nts XR KNEE RT 4 VIEWS Routine 10/24/2014 11:11 AM Pain in [...] right documented in this encounter Care Teams Curtain Fitter Relationship Specialty Start Date End Date Prakash Pérez MD PCP - General 03/17/14 08/20/[address] [place] [address] documented as of this encounter
--- OUTSIDE RECORDS SUMMARY | 2021-12-14 22:53 | XMS_ITS | Encounter Summary ---
:1955 Author Organization [facility] Address [address] [place] [address] Care Team Providers Name Role Phone Prakash Pérez MD Primary Care Provider Reason for Visit Reason Comments Follow-up MEDICATION CHECK Encounter Details Date Type Department Care Team Description 06/29/2015 Office Visit [facility] Parris Lucas MD Parkinson's disease [facility] [address] ([facility] ) (Primary Dx) [address] [place] [phone] (Wo rk) Social History Tobacco Use Types Packs/Day Years Used Date Smoking Tobacco: Never Assessed Sex Assigned at Date Recorded Not on file documented as of this encounter Last Filed Vital Signs Vital Sign Reading Time Taken Comments Blood Pressure 124/78 06/29/2015 4:26 PM CDT Pulse 78 06/29/2015 4:26 PM CDT Temperature - - Respiratory Rate - - Oxygen Saturation - - Inhaled Oxygen Concentration - - Weight 73.5 kg (162 lb) 06/29/2015 4:23 PM CDT Height - - Body Mass Index 24.63 01/17/2013 9:57 AM SUMATRA OPENER documented in this encounter Patient Instructions Patient InstructionsParris Lucas MD - 06/29/2015 4:49 PM CDT Please call the [facility] nurse line for any questions, concerns or updates, . \Chelsie Toribio RN keep on keepin' on! OK to take sinemet and amantadine as you are-- return in 6 months documented in this encounter Progress Notes Parris Lucas MD - 07/03/2015 7:16 AM CDT [facility] ANNUAL Follow-up Examination [facility] [address] [address] [place] [address] SUBJECTIVE: Chief Complaint Patient presents with ??? Follow-up 6 month. Dx with breast cancer in Feb. Doing rad therapy ??? Medication Check Update and other concerns: returns for routine 6mo fu of Parkinson's disease. She was diagnosed withStage 1 breast cancer, had a lumpectomy and is just finishing her course of radiation treatments. She is taking sinemet 25/100 2 pills every 2 hours, for a total of about 9 doses/day, and 1-3 CR sinemet (depending on her anticipated activity level) and amantadine am and noon. Past Medical History Update: breast cancer Adverse Drug Reactions: Adverse Drug Reactions were reviewed today, and updated on the Health Profile of [facility]. Current Medications: Reviewed today and updated on Health Profile in [facility]. Outpatient Prescriptions Prior to Visit Medication Sig Dispense Refill ??? acetaminophen (TYLENOL) 325 mg tablet Take 325-650 mg by mouth every 4 hours as needed for Pain.Maximum 4000mg per 24 hours ??? ALPRAZolam (XANAX) 0.25 mg tablet TAKE 1 TABLET BY MOUTH NEEDED FOR ANXIETY 20 tablet 5 ??? amantadine HCl (SYMMETREL) 100 mg capsule Take 1 capsule by mouth 2 times daily. 180 capsule 4 ??? calcium carbonate (TUMS) 200 mg calcium chewable tablet Take 1 tablet by mouth daily as needed for Heartburn. ??? carbidopa-levodopa (SINEMET CR) 50-200 mg CR per tablet TAKE 1 TABLET BY MOUTH NIGHTLY AT BEDTIME, PLUS 2 TABLETS/DAY EXTRA NEEDED. 270 tablet 3 ??? carbidopa-levodopa (SINEMET) 25-100 mg per tablet Take 2 tablets by mouth every 2 hours. up to 9doses/day or 18 pills 1620 tablet 4 ??? cholecalciferol (VITAMIN D3) 1,000 unit Tab Take 2,000 Units by mouth daily (every 24 hours). ??? DOCUSATE CALCIUM (STOOL SOFTENER ORAL) Take 1 tablet by mouth daily (every 24 hours). ??? escitalopram (LEXAPRO) 10 mg tablet Take 10 mg by mouth daily (every 24 hours). ??? GLUCOSAM/MSM/VIT C/TEOFILO/HRB#21 (GLUCOSAMINE-MSM COMPLEX ORAL) Take 2 tablets by mouth daily (every 24 hours). ??? mirtazapine (REMERON) 15 mg tablet Take 1 tablet by mouth nightly. 90 tablet 4 ??? multivitamin (THERAGRAN) tablet Take 1 tablet by mouth daily (every 24 hours). ??? omega-3 fatty acids-fish oil 340-1,000 mg capsule Take 1 g by mouth 2 times daily. No facility-administered medications prior to visit. 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 driving status: no concerns family involvement, need for assistance: no concerns alcohol/tobacco: none exercise: sometimes safety concerns: none Advance health care directive: she has one other: none Review of Systems: cognitive: no concerns autonomic: constipation psychiatric: (PQRS measure #290) anxiety, apathy sleep: (PQRS measure #292) vivid dreams falls/assistive device: no falls, but occasionally uses a walker, has some freezing dyskinesia/wearing off: she has dyskinesia, not bothersome skin: discussed the increased risk of melanoma weight/nutrition: stable other: breast cancer as above OBJECTIVE: Vital Signs: includes sitting and standing blood pressure Filed Vitals: 06/29/15 1623 06/29/15 1626 BP: 114/70 124/78 Pulse: 68 78 Weight: 73.483 kg (162 lb) Unified Parkinson's Disease Rating Scale (Part 2) Functional Score (maximum 52): 12 General: she is well dressed and groomed Neurologic exam: cognitive assessment (PQRS measure #291): Mental status: normal attention, concentration, memory, fund of knowledge, and language. moderate writhing dyskinesia L foot dystonia walks pretty well, with a mild forward lean to her posture ASSESSMENT: (review of diagnosis and discussion of any atypical features; PQRS measure #289) Stage 2 Parkinson's disease, complicated now by a recent diagnosis of breast cancer. It sounds as though the cancer was caught early, and she has a good attitude about her prognosis from that. No change in PD meds, return in 6 months. We discussed the potential interaction between seemingly unrelated h ealth issues (ie PD symptoms could be worse as she is going through cancer treatments). PLAN: medical and surgical treatment options: (PQRS measure #294) no change rehabilitation options: (PQRS measure #293) none needed participation in research: not today safety concerns counseling: none return in 6 months Total time: 25 minutes, Counseling time: 20 minutes about issues described in Assessment and Plan Send copy to: Dr. Prakash Pérez, [facility], [address] [place] [address] Parris Lucas MD 4:39 PM 06/29/2015 *Note: underlined items are the 10 items included in the 2011 [employer] Parkinson's Disease Practice Parameters for the annual examination of a person with Parkinson's disease documented in this encounter Plan of Treatment Upcoming Encounters Date Type Specialty Care Team Description 06/08/2022 Appointment Neurology Parris Lucas MD [address] [facility] [address] [facility] [address] [address] (Wo rk) documented as of this encounter Visit Diagnoses Diagnosis Parkinson's disease ([facility]) - Primary documented in this encounter Care Teams Manager Servicing Relationship Specialty Start Date End Date Prakash Pérez MD PCP - General 03/17/14 08/20/18 [address] [place] [address] documented as of this encounter
--- OUTSIDE RECORDS SUMMARY | 2021-12-14 22:53 | XMS_ITS | Encounter Summary ---
:1955 Author Organization [facility] Address [address] [place] [address] Care Team Providers Name Role Phone Prakash Pérez MD Primary Care Provider Reason for Referral Therapies (Routine) - Closed Specialty Diagnoses / Procedures Referred By Contact Refer red To Contact Diagnoses Parkinson's disease ([facility]) Parris Lucas MD [address] [facility] [address] [place] [address] [phone] Referral ID Status Reason Start Date Expiration Date Visits Requ ested Visits Authorized [id number] Closed 09/15/2016 11/14/2016 1 1 Scheduling Instructions Your provider has recommended an appoint ment with [facility]. You may call [phone] to schedule your a ppointment. If you do not schedule an appointment within the next 1 to 3 busin ess days, we will call you to help arrange your appointment. We suggest you call [employer] about your coverage and benefits for this appointme nt. herapies (Routine) - Closed Specialty Diagnoses / Procedures Referred By Contact Refer red To Contact Diagnoses Parkinson's disease ([facility]) Parris Lucas MD [address] [facility] [address] [place] [address] [phone] Referral ID Status Reason Start Date Expiration Date Visits Requ ested Visits Authorized [id number] Closed 09/15/2016 11/14/2016 1 1 Scheduling Instructions Your provider has recommended an appoint ment with [facility]. You may call [phone] to schedule your a ppointment. If you do not schedule an appointment within the next 1 to 3 in , we will call you to help arrange your appointment. We suggest you call [email or web address] about your coverage and benefits for this appointme nt. Reason for Visit Reason Comments Medication Check In wants to discuss regimen of medication. Any other suggestions for pills? Questions Any considerations for rama ng alone with PD? Encounter Details Date Type Department Care Team Description 09/15/2016 Office Visit [facility] Parris Lucas MD Parkinson's disease [facility] [address] ([facility] ) (Primary Dx) Drive [facility] [address] [place] [phone] (Wo rk) Social History Tobacco Use Types Packs/Day Years Used Date Smoking Tobacco: Never Sex Assigned at Date Recorded Not on file documented as of this encounter Last Filed Vital Signs Vital Sign Reading Time Taken Comments Blood Pressure 102/58 09/15/2016 12:43 PM CDT Pulse 76 09/15/2016 12:43 PM CDT Temperature - - Respiratory Rate - - Oxygen Saturation - - Inhaled Oxygen Concentration - - Weight 68.5 kg (151 lb 1.6 oz) 09/15/2016 12:40 PM CDT Height - - Body Mass Index 22.97 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 Irina Cobos RN Thank you for enrolling in [employer]. Please follow the instructions below to securely access your online medical record. [employer] allows you to send messages to your doctor, view your test results, renewyour prescriptions, schedule appointments, and more. How Do I Sign Up? 1. In your Internet browser, go to [email or web address] 2. Click on the Enter activation code link under the New User? section. You will see the Activate your account! page. 3. Enter your activation code exactly as it appears below. You will not need to use this code after you???ve completed the sign-up process. If you do not sign up before the expiration date, you must request a new code. Activation Code: [email or web address] Expires: 10/15/2016 12:39 PM 4. Enter your last name and date of (mm/dd/yyyy) as indicated, then click Continue. You will be taken to the Let's set up your account page. 5. Create a username. This will be your [employer] login ID and cannot be changed, so think of one thatis secure and easy to remember. 6. Create a password. You can change your password at any time. 7. Enter your e-mail address. You will receive e-mail notification when new information is availablein [employer]. 8. Select your Security Questions and enter your answers. These can be used at a later time if you forget your password. 9. Check the box to accept the terms and conditions. Click Create your account. You can now view your medical record. Additional Information If you have questions, you can call [phone] to talk to our [employer] staff. Remember, [employer] is NOT to be used for urgent needs. For medical emergencies, dial 911. See PT and speech therapy Come to the DBS class No change in medications at this point Return in 3-4 months documented in this encounter Progress Notes Parris Lucas MD - 09/15/2016 12:30 PM CDT [address] [place] [address] FOLLOWUP EXAMINATION SUBJECTIVE Chief Complaint Patient presents with ??? Medication Check In wants to discuss regimen of medication. Any other suggestions for pills? Questions Any considerations for living alone with PD? Current concerns and update: This 61 yo pt returns for short term followup. I saw her in July and felt that she was struggling with some depression and the effects of stress on her overall function, so asked her to come back in a couple of months. She also met with the health and social care teacher today; her two sons are with her. SHe is takingsinemet 25/100 2 pills every 2 hours up to 10 doses/day, a CR at bedtime, and amantadine twice a day. She takes Xanax once in a while, but not daily or even weekly. Her a couple of weeks ago, finally, so she is beginning a new stage of her life. Her two sons are here today supporting her. Past Medical History Update: No past medical history on file. Adverse Drug Reactions: Reviewed today and updated on Health Profile in [facility]. Allergies Allergen Reactions ??? Penicillins PN: LW Reaction: Fever ??? Sulfa Antibiotics PN: rash Current Medications: Reviewed today and updated on Health Profile in [facility]. Outpatient Medications Prior to Visit Medication Sig Dispense Refill ??? acetaminophen (AKA TYLENOL) 325 MG tablet Take 325-650 mg by mouth every 4 hours as needed for Pain. Maximum 4000mg per 24 hours ??? ALPRAZolam (XANAX) 0.25 MG tablet Take 1 Tab by mouth every 24 hours as needed. 20 Tab 2 ??? amantadine (SYMMETREL) 100 MG capsule Take [...] Daily. ??? Glucosamine HCl-MSM (GLUCOSAMINE-MSM OR) Take 2 tablets by mouth daily (every 24 hours). ??? letrozole (AKA FEMARA) 2.5 MG tablet Take 2.5 mg by mouth daily (every 24 hours). ??? mirtazapine (REMERON) 15 MG tablet Take [...] family history on file. Social History Update: Her recently, and she will likely be moving Review of Systems: See above Falls since last visit? No falls, no device OBJECTIVE Vital Signs: (includes sitting and standing blood pressure) Vitals: 09/15/16 1240 09/15/16 1243 BP: 106/60 102/58 Pulse: 76 76 Weight: 68.5 kg (151 lb 1.6 oz) Unified Parkinson's Disease Rating Scale (Part 2) Functional Score (maximum 52): 12 General: She is moderately dyskinetic off and on during the exam No tremor She appears generally healthy, not overweight Neurologic exam: Voice was quiet but intelligible She chaparro from the chair independently and walked OK without any device ASSESSMENT/PLAN Stage 2 Parkinson's disease with frequent levodopa dosing, motor fluctuation. She is beginning a newchapter in her life, and met with SW today. She will meet with PT and speech to get their input as well, and I asked her to come to the DBS class to consider DBS as an alternative. She is now 10 years into her course, 61 years old and taking medication every 2 hours, so DBS is clearly an option. Her two sons were here for the first time today, so we spent a lot of time reviewing what medications she takes and why and when and so on, to bring them up to speed. This was a prolonged 40 minute visit. She will return in 3-4 months. Total time/ Counseling time: 40 min total time, 35 min discussion Send a copy of note to: Dr. Prakash Pérez, [facility], [address] [place] [address] Parris Lucas MD 12:52 PM 09/15/2016 documented in this encounter Plan of Treatment Upcoming Encounters Date Type Specialty Care Team Description 06/08/2022 Appointment Neurology Parris Lucas MD [address] [facility] [address] [address] [place] [address] (Wo rk) Scheduled Referrals Name Type Priority Associated Diagnoses Order S chedule Physical Therapy Referral Routine Parkinson's disease ([facility] ) Ordered: 09/15/2016 Speech Therapy Referral Routine Parkinson's disease ([facility]) Ordered: 09/15/2016 documented as of this encounter Visit Diagnoses Diagnosis Parkinson's disease ([facility]) - Primary documented in this encounter Care Teams Bag Machine Operator Relationship Specialty Start Date End Date Prakash Pérez MD PCP - General 03/17/14 08/20/[address] [place] [address] documented as of this encounter
--- OUTSIDE RECORDS SUMMARY | 2021-12-14 22:53 | XMS_ITS | Encounter Summary ---
:1955 Author Organization [facility] Address [address] [place] [address] Care Team Providers Name Role Phone Prakash Pérez MD Primary Care Provider Reason for Visit Reason Comments Letter Encounter Details Date Type Department Care Team Description 02/02/2015 Telephone [facility] Chelsie Toribio RN Letter [address] [place], [place] [address] Social History Tobacco Use Types Packs/Day Years Used Date Smoking Tobacco: Never Assessed Sex Assigned at Date Recorded Not on file documented as of this encounter Nursing Notes Chelsie Toribio RN - 02/03/2015 8:42 AM CST Mailed letter to home address. Called and LM telling Jessica letter was mailed. Parris Gao MD - 02/03/2015 8:37 AM CST letter written NESS COACH Chelsie Toribio RN - 02/02/2015 2:17 PM CST Jessica called because she has been picked for jury duty and needs letter from Dr. Lucas to be excused. Letter can be mailed to home address or faxed (number not provided) She needs letter within 7 days. Called and LM asking her to call back. Dr. Lucas- please provide letter. Thanks. NESS COACH documented in this encounter Miscellaneous Notes Letter - Parris Lucas MD - 02/03/2015 12:00 AM CST Images from the original note were not included. [facility] [address] [place] [address] Darlene Viki [address] [address] [facility] [address] February 03, 2015 Dear Darlene Drew, This is a letter to document that you are a patient under my care for a neurological condition. You are required to take medication every 2 hours because of your neurological condition, and during a two hour interval, your ability to concentrate and to move fluctuates, and you sometimes develop involun tary movements. I believe that your presence on a jury panel would be distracting to the proceedingsand potentially unfair to the defendant, and also potentially harmful to you if the court proceedings prevent you from being able to access your medication in a timely fashion. I respectfully request that you be exempted from jury duty because of your neurological condition. Sincerely, Parris Lucas MD NESS COACH documented in this encounter Plan of Treatment Upcoming Encounters Date Type Specialty Care Team Description 06/08/2022 Appointment Neurology Parris Lucas MD [address] [facility] [address] [facility] [address] [address] (Wo rk) documented as of this encounter Visit Diagnoses Not on filedocumented in this encounter Care Teams Electrician Ship Relationship Specialty Start Date End Date Prakash Pérez MD PCP - General 03/17/14 08/20/18 [address] [place] [address] documented as of this encounter
--- OUTSIDE RECORDS SUMMARY | 2021-12-14 22:53 | XMS_ITS | Encounter Summary ---
:1955 Author Organization [facility] Address [address] [place] [address] Care Team Providers Name Role Phone Prakash Pérez MD Primary Care Provider Reason for Visit Reason Comments Medication Check In increase in citalopram in Ja n Refill Xanax, carb/levo IR and CR, miratazipine, and amantadine Increased Anxiety with panic attacks for the l ast 3-4 weeks Encounter Details Date Type Department Care Team Description 07/05/2016 Office Visit [facility] Parris Lucas MD Parkinson's disease [address] ([facility] ) (Primary Dx) [address] [place] [address] [phone] (Wo rk) Social History Tobacco Use Types Packs/Day Years Used Date Smoking Tobacco: Never Sex Assigned at Date Recorded Not on file documented as of this encounter Last Filed Vital Signs Vital Sign Reading Time Taken Comments Blood Pressure 104/64 07/05/2016 10:38 AM CDT Pulse 70 07/05/2016 10:38 AM CDT Temperature - - Respiratory Rate - - Oxygen Saturation - - Inhaled Oxygen Concentration - - Weight 65.8 kg (145 lb 1.6 oz) 07/05/2016 10:35 AM CDT Height - - Body Mass Index 22.06 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 Irina Cobos RN Thank you for enrolling in [employer]. Please follow the instructions below to securely access your online medical record. [employer] allows you to send messages to your doctor, view your test results, renewyour prescriptions, schedule appointments, and more. How Do I Sign Up? 1. In your Internet browser, go to [email or web address] 2. Click on the Enter activation code link under the New User? section. You will see the Activate your account! page. 3. Enter your activation code exactly as it appears below. You will not need to use this code after you???ve completed the sign-up process. If you do not sign up before the expiration date, you must request a new code. Activation Code: [email or web address] Expires: 08/04/2016 10:32 AM 4. Enter your last name and date of (mm/dd/yyyy) as indicated, then click Continue. You will be taken to the Let's set up your account page. 5. Create a username. This will be your [employer] login ID and cannot be changed, so think of one thatis secure and easy to remember. 6. Create a password. You can change your password at any time. 7. Enter your e-mail address. You will receive e-mail notification when new information is availablein [employer]. 8. Select your Security Questions and enter your answers. These can be used at a later time if you forget your password. 9. Check the box to accept the terms and conditions. Click Create your account. You can now view your medical record. Additional Information If you have questions, you can call [phone] to talk to our [employer] staff. Remember, [employer] is NOT to be used for urgent needs. For medical emergencies, dial 911. Continue sinemet 25/100 1 pill every 2 hours Take the CR sinemet just at bedtime OK to take alprazolam up to 3 times a week Return in 3 months documented in this encounter Progress Notes Parris Lucas MD - 07/05/2016 6:56 AM CDT Images from the original note were not included. [address] [place] [address] ANNUAL FOLLOW-UP EXAMINATION SUBJECTIVE Chief Complaint Patient presents with ??? Medication Check In increase in citalopram in Mar ??? Refill Xanax, carb/levo IR and CR, miratazipine, and amantadine ??? Increased Anxiety with panic attacks for the last 3-4 weeks Neurological update and patient concerns This 61 yo pt returns for routine 6 month followup of Parkinson's disease. She is taking 2 sinemet 25/100 every 2 hours up to 10 doses/day, CR sinemet, amantadine, and remeron. Recall that a year ago she was diagnosed with breast cancer; she has done well with her treatment for that. Her was just diagnosed with prostate cancer with bone mets and congestive heart failure, andso she is very stressed about that. THey now have home care coming in to help, but he continues to do poorly. SHe is having to help him with bathing and such, and her daughter and two sons are there every day at some point, but still the patient is feeling stressed. Past medical history update No new issues Adverse drug reactions Adverse Drug Reactions were reviewed today, and updated on the Health Profile of [facility]. Current medications Reviewed today and updated on Health Profile in [facility]. Outpatient Prescriptions Prior to Visit Medication Sig Note Dispense Refill ??? acetaminophen (AKA TYLENOL) 325 MG tablet Take 325-650 mg by mouth every 4 hours as needed for Pain. Maximum 4000mg per 24 hours ??? ALPRAZolam (XANAX) 0.25 MG tablet TAKE ONE TABLET BY MOUTH NEEDED FOR ANXIETY 20 Tab 0 ??? amantadine (AKA SYMMETREL) 100 MG capsule Take 1 capsule by mouth 2 times daily. 07/05/2016: Morning and mid-afternoon 180 capsule 4 ??? Calcium Carbonate 500 MG Take 1 tablet by mouth daily as needed for Heartburn. ??? carbidopa-levodopa (AKA SINEMET CR) 50-200 MG controlled release tablet Take 1 tablet by mouth nightly. one am and PM plus up to 3 additional/day if needed 360 tablet 4 ??? carbidopa-levodopa (AKA SINEMET) 25-100 MG tablet 2 pills every 2 hours up to 10 doses/day 1800 tablet 4 ??? cholecalciferol (AKA VITAMIN D3) 1000 [...] mouth daily (every 24 hours). ??? mirtazapine (AKA REMERON) 15 MG tablet Take 1 tablet by mouth nightly. 90 tablet 4 ??? Multiple Vitamins-Minerals (MULTIVITAMIN ADULT OR) Take 1 tablet by mouth daily (every 24 hours). ??? omega-3 fatty acids (FISH OIL) 1000 MG capsule Take 1 g by mouth daily. No facility-administered medications prior to visit. Family history update No new information to report Social history update 1. Lives in private home with her 2. Work status: not working 3. 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 Driving status: she is not really driving 5. Family involvement, need for assistance: she is independent 6. Alcohol/tobacco: none 7. Exercise: not much 8. Safety concerns: taking medication correctly 9. Advance health care directive*: she has one, not in our records Review of systems 1. Cognitive: mild cognitive issues 2. Autonomic*: no concerns about orthostatic hypotension, constipation, fecal incontinence, bladder urgency, bladder incontinence, nocturia, urinary retention, delayed gastric emptying, dysphagia, drooling, hyperhidrosis, sexual dysfunction. Does have concerns about constipation, bladder urgency, dry mouth, drooling 3. Psychiatric* (PQRS measure #290): does not have concerns about psychosis, hallucinations, depression, anxiety, apathy, impulse control. Does have concerns about depression, anxiety 4. Sleep* (PQRS measure #292): does not have concerns about insomnia, sleep fragmentation, nocturnalmotor symptoms, REM behavior disorder, restless legs syndrome, sleep disordered breathing, excessivedaytime sleepiness. 5. Falls in the last 6 months*/assistive device: she has had falls 6. Medication-related motor complications* (wearing off, dyskinesia, dystonia, on/off):she has both,especially if she is late with a sinemet dose; 10 percent of waking hours are off 7. Skin: not discussed 8. Weight/nutrition: stable 9. Other: none OBJECTIVE 1. Vital Signs: includes sitting and standing blood pressure Filed Vitals: 07/05/16 1035 07/05/16 1038 BP: 108/60 104/64 Pulse: 72 70 Weight: 65.817 kg (145 lb 1.6 oz) 2. Unified Parkinson's Disease Rating Scale Activities of Daily Living Score (maximum 52): 13 3. General: She is thin, hair is thin, she appears middle aged but not ill 4. Neurologic exam: cognitive assessment* (PQRS measure #291): She provided her own history, discussed a wide range of topics without difficulty She was mildly dyskinetic throughout the exam Voice quality was normal Gait was OK, no freezing or festinating noted ASSESSMENT (review of diagnosis and discussion of any atypical features*; PQRS measure #289) (note that the useof the term Parkinson's disease implies a review of disease features according to the [place] PD Brain Bank Diagnostic Criteria) Stage 2 PArkinson's disease, exacerbated by severe life stressors. We spent a lot of time talking about her 's issues and how to deal with them in a way that would reduce her stress. I urged herto be good about taking her sinemet every 2 hours, and it is OK for her to take alprazolam on a stressful day if she needs to, up to 3 doses/week. OK with me that the lexapro was increased to 20mg. I will see her back in 3 months. PLAN 1. Medical and surgical treatment options (PQRS measure #294): See above 2. This patient is not taking, and should not take, antidopaminergic drugs such as metoclopramide, haloperidol, thorazine, or chlorpromazine.* 3. Rehabilitation options* (PQRS measure #293): PT referral considered but not needed. OT referral considered but not needed. Speech therapy referral considered but not needed. 4. Counseling about exercise*: The patient was instructed to exercise at a moderate level, or at thebest level possible, for 120 minutes/week. 5. Participation in research: not today 6. Safety concerns counseling: stress managements 7. Return in 3 months Total time: 35 minutes, Counseling time: 30 minutes about issues described in Assessment and Plan Send copy to: Dr. Prakash Pérez, [facility], [address] [place] [id number] Parris Lucas MD 10:43 AM 07/05/2016 Note: The 11 items marked with an asterisk (*) are [place] [employer] 2015 quality measures for Parkinson's disease (Factor et al, Neurology 86: 2278- 2283, 2016) documented in this encounter Plan of Treatment Upcoming Encounters Date Type Specialty Care Team Description 06/08/2022 Appointment Neurology Parris Lucas MD [address] [facility] [address] [facility] [address] [address] (Wo rk) documented as of this encounter Visit Diagnoses Diagnosis Parkinson's disease ([facility]) - Primary documented in this encounter Care Teams Faculty Support Coordinator Relationship Specialty Start Date End Date Prakash Pérez MD PCP - General 03/17/14 08/20/[address] [place] [id number] documented as of this encounter
--- OUTSIDE RECORDS SUMMARY | 2021-12-14 22:53 | XMS_ITS | Encounter Summary ---
:1955 Author Organization [employer] Address [address] [place] [address] Care Team Providers Name Role Phone Prakash Pérez MD Primary Care Provider Reason for Referral (Routine) - Closed Specialty Diagnoses / Procedures Referred By Contact Refer red To Contact Diagnoses Primary osteoarthritis of right knee Carter Alicea MD Procedures Betamethasone Acet&Sod Phosp (per 3 mg) [address] [place] [address] Referral ID Status Reason Start Date Expiration Date Visits Requ ested Visits Authorized [id number] Closed 12/08/2015 03/08/2017 1 1 Reason for Visit Reason Comments Follow-up Encounter Details Date Type Department Care Team Description 12/08/2015 Office Visit Carter Dixon MD Primary osteoarthritis Orthopedics [address] of right knee (Primary [address] [place], [place] Dx) [place] [phone] Social History Tobacco Use Types Packs/Day Years Used Date Smoking Tobacco: Never Sex Assigned at Date Recorded Not on file documented as of this encounter Progress Notes Carter Alicea MD - 12/08/2015 9:50 AM CDT Ortho Follow up Note Patient reports to the clinic for a cortisone injection to the right knee. Last injection was 12 months ago. She denies any history or signs of infection. On exam there are no signs of infection. Tender over the medial joint line ROM 0 to 130 Ligamentously stable No calf tenderness Neurovascularly intact distally Impression: right knee degenerative joint disease Plan: Risks, Alternatives, and potential benefits were discussed, and the patient wishes to proceed. After informed consent was obtained and under sterile conditions a steroid injection was performed via a lateral portal approach to the right knee using 1% plain Lidocaine and 9 mg of Celestone. This was well tolerated. If the patient experiences any signs of infection, they are to contact our office immediately. Follow up in 3-4 months as needed or sooner if symptoms dictate Patient verbalized understanding and agreement to our treatment plan. All of her questions were answered to her satifaction. documented in this encounter Plan of Treatment Upcoming Encounters Date Type Specialty Care Team Description 06/08/2022 Appointment Neurology Parris Lucas MD [address] [facility] [address] [facility] [address] (Wo rk) documented as of this encounter Visit Diagnoses Diagnosis Primary osteoarthritis of right knee - P rimary Primary localized osteoarthrosis, lower leg documented in this encounter Care Teams Farm Technician Relationship Specialty Start Date End Date Prakash Pérez MD PCP - General 03/17/14 08/20/18 [address] [place] [address] documented as of this encounter
--- OUTSIDE RECORDS SUMMARY | 2021-12-14 22:53 | XMS_ITS | Encounter Summary ---
:1955 Author Organization [facility] Address [address] [place] [address] Care Team Providers Name Role Phone Prakash Pérez MD Primary Care Provider Reason for Visit Reason Comments DYSARTHRIA--ED Voice Problem Cognition Therapies (Routine) - Closed Specialty Diagnoses / Procedures Referred By Contact Refer red To Contact Diagnoses Parkinson's disease ([facility]) Parris Lucas MD [address] [facility] [address] [place], [place] [address] Referral ID Status Reason Start Date Expiration Date Visits Requ ested Visits Authorized [id number] Closed 09/15/2016 11/14/2016 1 1 Encounter Details Date Type Department Care Team Description 09/26/2016 Initial Consult Supriya Nick kinson's disease ([facility]) (Primary Dx); Erlinda Medeiros, WIRE COATING OPERATOR METAL Dysphonia; [address]; Drive Dr 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 ([facility]) [place] [phone] Social History Tobacco Use Types Packs/Day Years Used Date Smoking Tobacco: Never Sex Assigned at Date Recorded Not on file documented as of this encounter Progress Notes Supriya Menendez WIRE COATING OPERATOR METAL - 09/26/2016 1:30 PM CDT Encounter Date: 09/26/2016 Patient : 1955 Speech Therapy - Parkinson's Disease Evaluation and Plan of Care [facility] Services Multidisciplinary Assessment Clinic Outpatient Evaluation Initial Certification Period: 09/26/2016 to 12/26/16 Referring Provider: Parris Lucas Referring Diagnosis: Parkinson's disease Visit Diagnosis/ICD Codes: 1. Parkinson's disease ([facility]C) 2. Dysphonia 3. Dysarthria 4. 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 Orders: Evaluate and treat. Onset/Referral Date: 09/15/16 SUBJECTIVE Reason for Visit: Patient presents to Speech Therapy with difficulties with speech and voice. I feel like I'm hollering at people. Nobody can hear me, and that's frustrating. Friends tell her that she needs to talk louder. She does not have any swallowing concerns, except that her throat gets dry. She also has dry mouth, and uses Biotene rinse. She drools while sleeping at night. When asked about memory, she stated she may be slower in thinking. Of note, her spouse last month. She has two grown sons and a daughter who live near her in the [facility], and they will provide transportation for her appointments. She drives, but does not like to drive longer distances. Voice-Related Quality of Life Index: 28. Fair. Patient Therapy Goal: Improve speech Past Medical History: Past medical history, medication and allergies were reviewed in the electronicmedical record. Pertinent to therapy: Breast cancer. Pain: Constant pain reported at: Right wrist, from a fall last week. Diet at Time of this Evaluation: General texture. Any liquids. Previous Speech Therapy: Received at [facility]. Evaluation in 2008 - no treatmentrecommended at that time. Hand Dominance: Right Hearing Acuity: Within Functional Limits. Glasses: Yes. Education: High school. Employment: Retired/Disabled. 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 Marital Status: Recently . Living Environment: Lives Independently. Grown children live nearby. OBJECTIVE Observation: Alert. Motivated. Cooperative. Mild-moderate dyskinesias - trunk and neck. Oral Motor: Overall Level of Impairment: Within Normal Limits. Drooling: Absent. Tongue: Overall Level of Impairment: Within Normal Limits. Range of Motion: Within Normal Limits. At rest: WNL During movement: WNL. Lips: Overall Level of Impairment: Within Normal Limits. Range of Motion: Within Normal Limits. Observations: WFL. Facial: Overall Level of Impairment: Mild deficits. Observations: Facial masking: mild Articulation/Speech: Overall Level of Impairment: Mild-moderate deficits. Imprecision during rushes of speech. Diadochokinetics: Repetition of single phonemes: Imprecise. Fast. Repetition of single words: Imprecise. Fast. Fluency: Overall Level of Impairment: Within Functional Limits. Rate: Overall Level of Impairment: Mild-moderate impairment. Rapid. Rushes of speech. Breath Support: Overall Level of Impairment: Minimal deficits. Testing Observations: Sustained phonation of /a/: 18 seconds. Other Comments: reduced respiratory support for speech and voice Voice: Testing Observations: Quality: Minimal to mild deficits. Breathy. Loudness: Mild deficits, Loudness in conversation: 68 dB Loudness in paragraph readin dB Pitch: moderate deficits and monotone Pitch range in conversation: 128 Hz Pitch range in paragraph readin Hz Resonance: Within Normal Limits. Stress/Intonation: Monopitch. Swallow Function: Overall Level of Impairment: Within Functional Limits. PO Trials: THIN LIQUIDS: Tested by: regular sip by cup, consecutive sip by cup. -Oral function is within normal limits. No aspiration signs. Expressive Language: Within Functional Limits. Memory Function: Overall level of impairment: Mild deficits. -Orientation: Within normal limits. 08/09 -Immediate: Mild impairment. 06/08 -Recent: Mild impairment. 01/18 -Remote: Mild impairment. 05/08 Total Treatment Time: 60 minutes ASSESSMENT Therapist Impression/Summary: Mild-moderate dysphonia and hypokinetic dysarthria. Articulation is imprecise, speech rate is fast, volume is low, and voice is monotone. Further treatment for speech and voice is recommended. Mild memory deficits, especially in the area of recent recall. WIRE COATING OPERATOR METAL provided comp ensatory memory strategies and home cognitive exercise recommendations today. Swallow appears WFL. She lives a distance from the clinic, so PT recommended once [id number] for six sessions. WIRE COATING OPERATOR METAL encouraged her to coordinate speech therapy with her PT schedule, though, ideally she would come in more frequently. Hospital - Functional Limitation Reporting- WIRE COATING OPERATOR METAL G-Codes Functional Limitation: Voice Voice Current Status (G9171): MANSI NOMS Level 3 (CL) Voice Goal Status (G9172): MANSI NOMS Level 5 (CJ) Recommendations: Individual speech therapy. Artistic Director Speech Goal: Client will be able to be understood without repetition 80% of the time in their daily environment as measured by patient report. Artistic Director Swallowing Goal: -None Artistic Director Memory/Cognition Goal: -Client and/or carepartner will verbalilze understanding of memory strategies taught today and functional application of those strategies. Goal met. Short Term Goals: -Independent in speech/voice home program. -Client will improve respiratory support for speech and voice to provide a basis for intelligible speech. -Client will increase articulation accuracy for improved speech intelligibility. -Client will increase voice volume to at least 70 dB in structured speech tasks at 80% to create a loudness habit for carryover into conversational speech. -Client will increase voice volume to at least 70 dB in reading at 80% to create a loudness habit for carryover into conversational speech. -Client will increase voice volume to at least 70 dB in conversational speech at 80% to achieve intelligible loudness. -Client will increase pitch range to >200 Hz in isolated vowels and connected speech to improve prosody for increased intelligibility. -Client will report increase in completion of home exercises to improve cognition. Goals Achieved Today at [facility]: -Client and/or family verbalized comprehension of today's evaluation results and recommendations. -Client and/or family verbalized comprehension of the effect of Parkinson's disease on speech and voice and the role of speech therapy. -Client and/or family verbalized comprehension of strategies for saliva control. (Handout provided) -Client and/or family verbalized comprehension of memory strategies and functional applications. (Handout provided) -Client/family verbalized comprehension of recommendations for home exercises for cognition. Potential Barriers to Goal Achievement or Learning: None apparent. Prognosis: Good for established goals. PLAN Education: Patient and/or family educated on results and recommendations. Provided NPF booklet Parkinson Disease: Speech and Swallowinnd edition. Recommended Referral to/for: None. Frequency/Duration: Once a week for 4-12 weeks. Discharge Plan: Patient will be discharged from speech therapy when goals are achieved or patient plateaus in progress. Informed Consent: Patient and/or family in agreement with care plan. The sample sewer is completed by the therapist, and the referring clinician's electronic signature certifies medical necessity for the plan above. documented in this encounter Plan of Treatment Upcoming Encounters Date Type Specialty Care Team Description 06/08/2022 Appointment Neurology Parris Lucas MD [address] [facility] [address] [facility] [address] (Wo rk) Scheduled Referrals Name Type Priority Associated Diagnoses Order S chedule Speech Therapy Referral Routine Parkinson's disease ([facility]C) Ordered: 09/15/2016 documented as of this encounter Visit Diagnoses Diagnosis Parkinson's disease ([facility]) - Primary Dysphonia Dysarthria 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 ([facility]) Unspecified persistent mental disorders due to conditions classified elsewhere documented in this encounter Care Teams Rubber Tubing Backer Relationship Specialty Start Date End Date Prakash Pérez MD PCP - General 03/17/14 08/20/[address] [place] [address] documented as of this encounter
--- OUTSIDE RECORDS SUMMARY | 2021-12-14 22:53 | XMS_ITS | Encounter Summary ---
:1955 Author Organization [facility] Address [address] [place] [address] Care Team Providers Name Role Phone Prakash Pérez MD Primary Care Provider Reason for Visit Reason Comments Refill Encounter Details Date Type Department Care Team Description 03/01/2015 Refill [facility] Parris Lucas MD Refill [address] ruby [address] [facility] [address] [place], [place] [address] [place] [address] [phone] (Wo rk) Social History Tobacco Use Types Packs/Day Years Used Date Smoking Tobacco: Never Assessed Sex Assigned at Date Recorded Not on file documented as of this encounter Nursing Notes Irina Cobos RN - 03/03/2015 9:17 AM CST Jessica called back. Spoke with patient and she stated she is still using the carb/levo CR 50-200 1 tab at HS and up to 2 additional tabs daily as needed. Dr. Lucas - If you're okay with the patient taking the carb/levo CR as previous prescribed before Rytary trial, please sign. Thanks LABORER Chelsie Toribio RN - 03/02/2015 2:14 PM CST Jessica called back. Called her back and LM asking her to let us know how she is taking her medication. LABORER Irina Cobos RN - 03/02/2015 11:21 AM CST Patient was last seen on 12/05/14, patient was switching from Rytary back to carb/levo IR because of the cost. Patient was to be back on carb/levo 25-100 2 tabs every 2 hours, up to 18 pills/day. The refill request was for carb/levo CR 50-200 1 tab at HS plus 2 tabs PRN, which is no longer on the patient's medication list. Left VM for patient to call back and verify what medications she was taking before refill request submitted. LABORER documented in this encounter Plan of Treatment Upcoming Encounters Date Type Specialty Care Team Description 06/08/2022 Appointment Neurology Parris Lucas MD [address] [facility] [address] [facility] [address] (Wo rk) documented as of this encounter Visit Diagnoses Not on filedocumented in this encounter Care Teams Lead Care Manager Relationship Specialty Start Date End Date Prakash Pérez MD PCP - General 03/17/14 08/20/[address] [place] [address] documented as of this encounter
--- OUTSIDE RECORDS SUMMARY | 2021-12-14 22:53 | XMS_ITS | Encounter Summary ---
:1955 Author Organization [employer] Address [address] [address] Care Team Providers Name Role Phone Prakash Pérez MD Primary Care Provider Reason for Visit Reason Comments Symptoms FYI IMMUNIZATIONS Encounter Details Date Type Department Care Team Description 12/05/2014 Office Visit [facility] Parris Lucas MD Parkinson's disease (Primary Dx); [address] [employer] [address] [place] [address] [place] [address] [phone] (Wo rk) Social History Tobacco Use Types Packs/Day Years Used Date Smoking Tobacco: Never Assessed Sex Assigned at Date Recorded Not on file documented as of this encounter Last Filed Vital Signs Vital Sign Reading Time Taken Comments Blood Pressure 80/50 12/05/2014 10:03 AM CDT Pulse 82 12/05/2014 10:03 AM CDT Temperature - - Respiratory Rate - - Oxygen Saturation - - Inhaled Oxygen Concentration - - Weight 74.8 kg (164 lb 12.8 oz) 12/05/2014 9:59 AM CDT Height - - Body Mass Index 25.06 01/17/2013 9:57 AM CLINIC LICENSED PRACTICAL NURSE documented in this encounter Patient Instructions Patient InstructionsParris Lucas MD - 12/05/2014 10:26 AM CDT Please call the [facility] nurse line for any questions, concerns or updates, . OK to take up to 18 sinemet pills/day, 9 doses if you need to. return in July documented in this encounter Progress Notes Parris Lucas MD - 12/05/2014 11:50 AM CDT [facility] [place] Follow-up Examination [facility] [place] [address] [employer] [place], [place] [id number] , SUBJECTIVE: Chief Complaint Patient presents with ??? Symptoms will be standing or walking, body will then freezeup and pt will fall ??? TYREL just started big and loud program this week for 4 weeks Current concerns and update: returns for followup of Parkinson's disease. SHe is having trouble with abrupt freezing and falling, sometimes freezes up just standing in one position. SHe is going to [place] for this. She tried Rytary, but it was way too expensive, so she went back to sinemet Past Medical History Update: No past medical history on file. Adverse Drug Reactions: Reviewed today and updated on Health Profile in [employer]. Allergies Allergen Reactions ??? Penicillins LW Reaction: Fever ??? Sulfa (Sulfonamide Antibiotics) rash Current Medications: Reviewed today and updated on Health Profile in [employer]. Current Outpatient Prescriptions on File Prior to Visit Medication Sig Dispense Refill ??? acetaminophen (TYLENOL) 325 mg tablet Take 325-650 mg by mouth every 4 hours as needed for Pain.Maximum 4000mg per 24 hours ??? ALPRAZolam (XANAX) 0.25 mg tablet Take 1 tablet by mouth as needed for Anxiety. 20 tablet 5 ??? amantadine HCl (SYMMETREL) 100 mg capsule Take 1 capsule by mouth 2 times daily. 180 capsule 2 ??? [DISCONTINUED] calcium carbonate (TUMS EX) 300 mg (750 mg) chewable tablet Take 3 tablets by mouth daily (every 24 hours). ??? carbidopa-levodopa (SINEMET) 25-100 mg per tablet Take 2 tablets by mouth every 2 hours. Takes 16 tabs per day. ??? cholecalciferol (VITAMIN D3) 1,000 unit Tab [...] g by mouth 2 times daily. No current facility-administered medications on file prior to visit. Family History Update: No family history on file. Social History Update: she lives at home with her Gene, but comes alone Review of Systems: dizziness, anxiety, freezing of gait, uses a walker Falls since last visit? she occasionally falls OBJECTIVE: Vital Signs: (includes sitting and standing blood pressure) Filed Vitals: 12/05/14 0959 12/05/14 1003 BP: 120/70 80/50 Pulse: 78 82 Weight: 74.753 kg (164 lb 12.8 oz) Unified Parkinson's Disease Rating Scale (Part 2) Functional Score (maximum 52): 17 General: she is neatly dressed and articulate, seems generally healthy and a little less anxious/depressed than a couple of visits ago Neurologic exam: she has moderate, primarily truncal, dyskinesia speech is minimally underarticulated, but she communicates easily Mental status: normal attention, concentration, memory, fund of knowledge, and language. she had minimal stuttering as she began to walk, but then was able to walk fine, a little hesitationon the turn, but she was fully attentive aout her symptoms and could overcome the freezing pretty easily ASSESSMENT/PLAN: Stage 3 Parkinson's disease, with some freeing of gait. We talked about this, and she is seeing PT about it. I gave her permission to take a 9th sinemet dose on a busy day (she currently takes 2 pills every 2 hours, found that Rytary was too expensive and so went back to the previous regimen of IR sinemet.) She is still not very interested in considering DBS. SHe is involved in a support group in [facility] that now has 16 members. Her home life is stable, and she has done some travel over the summer and will travel a little over the winter as well, short trips. SO all in all, I think things are OK. Return in 6 months. Total time: 25 min, 20 min discussion Send a copy of note to: Dr. Prakash Pérez, [facility], [address] [place] [id number] Parris Lucas MD 10:10 AM 12/05/2014 documented in this encounter Plan of Treatment Upcoming Encounters Date Type Specialty Care Team Description 06/08/2022 Appointment Neurology Parris Lucas MD [address] [facility] [address] [facility] [address] (Wo rk) documented as of this encounter Visit Diagnoses Diagnosis Parkinson's disease (HRC) - Primary Flu vaccine need Need for prophylactic vaccination and in oculation against influenza documented in this encounter Care Teams Agile Test Lead Relationship Specialty Start Date End Date Prakash Pérez MD PCP - General 03/17/14 08/20/[address] [place] [address] documented as of this encounter
--- OUTSIDE RECORDS SUMMARY | 2021-12-14 22:53 | XMS_ITS | Encounter Summary ---
:1955 Author Organization [facility] Address [address] [place] [address] Care Team Providers Name Role Phone Prakash Pérez MD Primary Care Provider Reason for Visit Reason Comments Refill Encounter Details Date Type Department Care Team Description 06/02/2015 Refill [facility] Parris Lucas MD Refill [address] ruby [address] [facility] [address] [place], [place] [address] [place] [address] [phone] (Wo rk) Social History Tobacco Use Types Packs/Day Years Used Date Smoking Tobacco: Never Assessed Sex Assigned at Date Recorded Not on file documented as of this encounter Nursing Notes Irina Cobos RN - 06/03/2015 1:42 PM CDT Order faxed to pharmacy. Irina Cobos RN - 06/03/2015 8:36 AM CDT Patient last seen on 12/05/14 - no changes in this medication at this time. Previous order on 03/31/15 has no refills on it. Dr. Lucas - please print and sign for order if you agree. Thanks! We will fax to pharmacy once signed. Fax #: [phone] documented in this encounter Plan of Treatment Upcoming Encounters Date Type Specialty Care Team Description 06/08/2022 Appointment Neurology Parris Lucas MD [address] [facility] [address] [facility] [address] (Wo rk) documented as of this encounter Visit Diagnoses Not on filedocumented in this encounter Care Teams Assembler Fluorescent Lights Relationship Specialty Start Date End Date Prakash Pérez MD PCP - General 03/17/14 08/20/[address] [place] [address] documented as of this encounter
--- OUTSIDE RECORDS SUMMARY | 2021-12-14 22:53 | XMS_ITS | Encounter Summary ---
:1955 Author Organization [employer] Address [address] [place] [address] Care Team Providers Name Role Phone Prakash Pérez MD Primary Care Provider Reason for Visit Reason Comments Questions Encounter Details Date Type Department Care Team Description 03/23/2015 Telephone [facility] Irina Oreilly, RN Questions [address] [place], [place] [address] Social History Tobacco Use Types Packs/Day Years Used Date Smoking Tobacco: Never Assessed Sex Assigned at Date Recorded Not on file documented as of this encounter Nursing Notes Irina Cobos RN - 03/23/2015 11:56 AM CST Patient called stating she received a call from one of the nurses here at [facility]. Spoke with patient and informed her that no one from here called and that she probably was listening to an old message. Patient understood and didn't have any questions. AL SERVICES AIDE documented in this encounter Plan of Treatment Upcoming Encounters Date Type Specialty Care Team Description 06/08/2022 Appointment Neurology Parris Lucas MD [address] [facility] [address] [facility] [address] [address] (Wo rk) documented as of this encounter Visit Diagnoses Not on filedocumented in this encounter Care Teams Claim Trainee Relationship Specialty Start Date End Date Prakash Pérez MD PCP - General 03/17/14 08/20/[address] [place] [address], [place] [address] documented as of this encounter
--- OUTSIDE RECORDS SUMMARY | 2021-12-14 22:53 | XMS_ITS | Encounter Summary ---
:1955 Author Organization [employer] Address [address] [place] [address] Care Team Providers Name Role Phone Prakash Pérez MD Primary Care Provider Reason for Visit Reason Comments Balance/gait Dysfunction Therapies (Routine) - Closed Specialty Diagnoses / Procedures Referred By Contact Refer red To Contact Diagnoses Parkinson's disease (HRC) Parris Lucas MD [address] [facility] [address] [place], [place] [address] Referral ID Status Reason Start Date Expiration Date Visits Requ ested Visits Authorized [id number] Closed 09/15/2016 11/14/2016 1 1 Encounter Details Date Type Department Care Team Description 09/26/2016 Initial Consult [facility] Breanna Cunningham inson's disease (HRC) (Primary Dx); Therapy [facility] [place] Gait instability; [address] freezing of gait; Drive Festinating gait; [place], [place] Histo ry of falling [address] [phone] Social History Tobacco Use Types Packs/Day Years Used Date Smoking Tobacco: Never Sex Assigned at Date Recorded Not on file documented as of this encounter Progress Notes Diann Cuninngham PT - 09/26/2016 12:30 PM CDT Visit Date: 09/26/2016 Patient : 1955 Physical Therapy Parkinson Evaluation/Plan of Care [facility] Initial Certification Period: 09/26/2016 to 12/25/16 Referring Provider: Dr. Parris Lucas Visit Diagnosis/ICD: 1. Parkinson's disease (HRC) 2. Gait instability 3. Primary freezing of gait 4. Festinating gait 5. History of falling Precautions: na Onset/Referral Date: 09/15/2016 Reason for Referral: -Outpatient PT. Orders: Evaluate and treat. [facility] Services: Speech therapy. Met with SW on 09/15/2016 Exacerbation Date: 09/03/2016 Last Referring MD Visit: 09/15/2016 Insurance: Medicare SUBJECTIVE Patient's Therapy Goal: to get stronger and be able to ride the bike again Current Comorbidities: depression and anxiety Personal Factors: Patient recently was after the of her from advanced prostateCA; during his illness, she was not able to exercise/take care of herself Mobility Limitations Reported: imbalance with unsteady walking-experiences festination and freezing of gait which has led to falls Balance/Falls in past 6 months: A few. Most recently, fell last week when getting out of the car, landed on her R wrist and injured it. XRays did not reveal a fx but it continues to be bruised and swollen; she is going in for a recheck today. She often falls forward as a result of festination. Motor Fluctuations Reported: Yes. This has improved since she has been dosing every 2 hours with reminders from her phone alarm. Dyskinesia Reported - United Parkinson's Disease Rating Scale (UPDRS): Yes. Pain: None Past Medical History: Past medical history, medication, and allergies were reviewed in the electronic medical record. History pertinent to therapy includes: Parkinson's disease - diagnosed 10 years ago. anxiety, depression and breast CA. Knee DJD with cortisone injections. Sciatica. Assistive Devices: 4 wheeled walker-has one that converts into a WC. She reportedly using it sporadically at least once a day. Did not have it along today Support System: her daughter dropped her off but left to run errands. Also has 2 sons in the area. Living Situation: Private home, all on one level. Now living alone since of her . [facility] Driving: Restricted. Only local outings. Daughter drove her today. Community Mobility: Independent community ambulation-unrestricted. Frequency of Outings: Get out 2-3 times a week. Community Resources: None/Unknown. Formal Exercises: not currently doing any. Has a stationary and road bike as well as a treadmill. Has used the Delay the Disease Parkinson's Disease exercise DVD in the past Exercise Frequency: none at present Communication: Dysarthria. Occupation: Retired. History Complexity: Medicare OBJECTIVE Behavioral Characteristics: Alert. Cooperative. Pleasant. Motor Function at Time of Eval: On - best level of functioning on medication. Tremor Observed: None. Body Bradykinesia and Hypokinesia: (UPDRS)(Combining slowness, hesitancy, decreased armswing, small amplitude and poverty of movement in general). 2 = Mild degree of slowness and poverty of movement which is definitely abnormal. Alternatively, some reduced amplitude. Dyskinesia (at time of evaluation): Minimally impacts function. Range of Motion: Grossly within normal limits. Muscle Strength: Grossly within normal limits. Left Lower Extremity: minimal impaired (4/5 grossly). Right Lower Extremity: minimal impaired (4/5 grossly) * significant reduction in hip abductors R>L with Trendelenberg . Posture/Alignment (Gross assessment): Appears to have mild scoliosis Transfers: Sit to Stand: Safe and independent. Functional Testing: Timed Up and Go Test (TUG): (Subject stands from arm chair, walks 3 meters (9 feet 10 inches), and sits back down in chair. Test is timed. Scores of young adults <10 seconds, older adults taking >=13.5 seconds classified as fallers with prediction rate of 90%, >30 seconds indicative of significant difficulties with ADL's.) - 9.78 seconds. Divided Attention TUG: TUG Cognitive: 18.43 seconds. *unable to do serial 3 subtraction and struggled to do alphabetical naming task. Only able to come up with one name during course of TUG 30 Sec Sit Stands: 10 times *below norms for age/gender of 15 Gait: Assistive Devices: No assistive device. Assistance Required: Independent. General Gait Description: dyskinetic with meandering from midline course. Instability noted with turns at times. Reduced step amplitude and foot clearance. Gait Velocity : 0.80 m/sec *indicates fall risk and need for intervention. Not sufficient for community ambulation Balance: MiniBESTest anticipatory 05/09 reactive postural control 05/09 sensory orientation 08/09 dynamic gait 09/12 Examination of Body System Complexity: moderate Clinical Presentation Complexity: moderate Treatment Today: Physical Therapy Evaluation - 30 minutes Neuromuscular reeducation - 30 minutes Addressed lateral hip instability: Standing hip abduction with 1-2 handed support X 10 reps B Lateral large amplitude stepping exercise X 10 B. Performed on taped line as a visual cue for lateral movement. Balance activities: Tandem walking Step overs on increasing heights of obstacles ASSESSMENT Therapist Impression: Patient is a recently 61 y/o woman with 10 year history of Parkinson'sDisease. She is experiencing gait deficits of freezing of gait and festination that has led to falls. She is not currently exercising and is at risk for future falls. Physical Therapy Practice Pattern: Primary prevention/risk reduction for loss of balance and falling. (5A) Impairments: Balance deficits. Bradykinesia. Gait pattern changes. Freezing of gait. Hypokinesia. Motor fluctuations. Muscle weakness. Postural deviation. Propulsion. Functional Limitations: Hospital - Functional Limitation Reporting: Based on functional testing: Mobility: Walking and Moving Around Current Status (G8978): At least 40 percent but less than 60 percent impaired, limited or restricted (CK) Mobility: Walking and Moving Around Goal Status (G8979): At least 20 percent but less than 40 percent impaired, limited or restricted (CJ) Possible Barriers to Goal Achievement: Lives a distance from clinic -must rely on family for transportation here Rehab Prognosis: Good Clinical Decision Making Complexity: moderate OVERALL COMPLEXITY: moderate PLAN Planned Treatment: ADL/Home program. Fall prevention. Cuing strategies. Gait training. Neuromuscularre-education. Therapeutic activities. Therapeutic exercise. Next visit: Gait training on the treadmill to facilitate large amplitude steps. Hip stability/abductor strengthening. Compensatory stepping for balance recovers Interdisciplinary Referrals: None. Services Recommended: na Frequency/Duration: may come every other week due to distance to travel to get to the clinic. Once every other week for 6 additional visits. Discharge Plan: when goals are met Estimated Discharge: 90 days. Consent: Results of evaluation were reviewed with patient. Patient was receptive to treatment plan and participated in setting goals. Risks, benefits and alternatives to treatment were reviewed. Expected Functional Outcomes: Increase activity tolerance/endurance to allow patient to carry out a home biking program in 7 visits. Improve balance/gait to increase gait velocity to 1.0+ meters /sec indicating reduced fall risk in 7visits Improve balance per MiniBESTest to >20/28 indicating reduction in fall risk in 7 visits Patient to carry out a HEP independently in 7 visits Patient to demo understanding of fall prevention strategies to deal with festination and freezing ofgait in 7 visits Total Treatment: 60 minutes The client portfolio manager is completed by the therapist and the referring clinician's electronic signature certifies medical necessity for the plan above. documented in this encounter Plan of Treatment Upcoming Encounters Date Type Specialty Care Team Description 06/08/2022 Appointment Neurology Parris Lucas MD [address] [facility] [address] [facility] [address] (Wo rk) Scheduled Referrals Name Type Priority Associated Diagnoses Order [facility] Physical Therapy Referral Routine Parkinson's disease (HRC ) Ordered: 09/15/2016 documented as of this encounter Visit Diagnoses Diagnosis Parkinson's disease (HRC) - Primary Gait instability Abnormality of gait Primary freezing of gait Abnormality of gait Festinating gait Abnormality of gait History of falling Personal history of fall documented in this encounter Care Teams Head Start Assistant Teacher Relationship Specialty Start Date End Date Prakash Pérez MD PCP - General 03/17/14 08/20/[address] [place] [address] documented as of this encounter
--- OUTSIDE RECORDS SUMMARY | 2021-12-14 22:53 | XMS_ITS | Encounter Summary ---
:1955 Author Organization [email or web address] Address [address] [place] [address] Care Team Providers Name Role Phone Prakash Pérez MD Primary Care Provider Reason for Visit Reason Comments Knee Pain or Injury Encounter Details Date Type Department Care Team Description 01/01/2015 Office Visit Carter Dixon MD Primary osteoarthritis of right knee (Pr imary Dx); Orthopedics [address] [place] l[place]rer[place] bursitis [address] [place] [address] [phone] Social History Tobacco Use Types Packs/Day Years Used Date Smoking Tobacco: Never Assessed Sex Assigned at Date Recorded Not on file documented as of this encounter Progress Notes Carter Alicea MD - 01/02/2015 10:31 AM CDT Ortho Follow up Note Patient reports to the clinic for a cortisone injection to the right knee. Has failed home PT. Unable to take NSAIDs. On exam there are no signs of infection. Tender over the medial joint line and pes of the right knee ROM 0 to 130 Trace 3ffusion Ligamentously stable No calf tenderness Neurovascularly intact distally Impression: right knee degenerative joint disease and pes bursitis Plan: Risks, Alternatives, and potential benefits were discussed, and the patient wishes to proceed. After informed consent was obtained and under sterile conditions a steroid injection was performed via a lateral portal approach to the right knee using 1% plain Lidocaine and 9 mg of Celestone. This was well tolerated. We then injected the pes. After informed consent was obtained and under sterile conditions a steroid injection was performed via a direct medial approach to the right knee pes bursa using 1% plain Lidocaine and 9 mg of Celestone. This was well tolerated. If the patient experiences any signs of infection, they are to contact our office immediately. We will begin formal PT. Follow up in 3-4 months as needed or sooner if symptoms dictate Patient verbalized understanding and agreement to our treatment plan. All of her questions were answered to her satifaction. documented in this encounter Plan of Treatment Upcoming Encounters Date Type Specialty Care Team Description 06/08/2022 Appointment Neurology Parris Lucas MD [address] [facility] [address] [facility] [address] (Wo rk) documented as of this encounter Visit Diagnoses Diagnosis Primary osteoarthritis of right knee - P rimary Primary localized osteoarthrosis, lower leg Pes anserine bursitis Pes anserinus tendinitis or bursitis documented in this encounter Care Teams Heavy Mobile Equipment Repairer Relationship Specialty Start Date End Date Prakash Pérez MD PCP - General 03/17/14 08/20/[address] [place] [address] documented as of this encounter
--- OUTSIDE RECORDS SUMMARY | 2021-12-14 22:53 | XMS_ITS | Encounter Summary ---
:1955 Author Organization [facility] Address [address] [place] [address] Care Team Providers Name Role Phone Prakash Pérez MD Primary Care Provider Reason for Visit Reason Comments Balance/gait Dysfunction when standing, feel more wob emmanuelle Nausea after eating will feel this way FALL one in past month, some near falls Encounter Details Date Type Department Care Team Description 01/01/2016 Office Visit [facility] Parris Lucas MD Parkinson's disease [facility] [address] ([facility] ) (Primary Dx) [address] [place] [phone] (Wo rk) Social History Tobacco Use Types Packs/Day Years Used Date Smoking Tobacco: Never Sex Assigned at Date Recorded Not on file documented as of this encounter Last Filed Vital Signs Vital Sign Reading Time Taken Comments Blood Pressure 100/60 01/01/2016 10:20 AM CDT Pulse 80 01/01/2016 10:20 AM CDT Temperature - - Respiratory Rate - - Oxygen Saturation - - Inhaled Oxygen Concentration - - Weight 68.5 kg (151 lb) 01/01/2016 10:16 AM CDT Height - - Body Mass Index 22.96 01/17/2013 9:57 AM CHEMIST INTERN documented in this encounter Patient Instructions Patient InstructionsParris Lucas MD - 01/01/2016 10:12 AM CDT Please call the [facility] nurse line for any questions, concerns or updates, . Gina Briceno, [place] Use your walker in public! Continue sinemet as you are! Return in 6 months Have fun in [place]! documented in this encounter Progress Notes Parris Lucas MD - 01/01/2016 6:23 AM CDT [facility] Follow-up Examination [facility] [employer] [place], [place] [id number] , SUBJECTIVE: Chief Complaint Patient presents with ??? Balance/gait Dysfunction when standing, feel more wobbly ??? Nausea after eating will feel this way ??? FALL one in past month, some near falls Current concerns and update: This 60 yo pt returns for routine fu of Parkinson's disease. She continues to have rushes of dizziness that are unpredictable. She also has nausea after eating at times. She is taking sinemet 25/100 2pills every 2 hours from morning to evening, and takes CR sinemet on more of an as-needed basis, andit helps if she does. She also takes amantadine twice a day. She has falls, sometimes related to dizziness, and sometimes to balance. Past Medical History Update: No past medical history on file. Adverse Drug Reactions: Reviewed today and updated on Health Profile in [facility]. Allergies Allergen Reactions ??? Penicillins PN: LW Reaction: Fever ??? Sulfa Drugs PN: rash Current Medications: Reviewed today and updated on Health Profile in [facility]. Outpatient Prescriptions Prior to Visit Medication Sig Dispense Refill ??? acetaminophen (AKA TYLENOL) 325 MG tablet Take 325-650 mg by mouth every 4 hours as needed for Pain. Maximum 4000mg per 24 hours ??? ALPRAZolam (AKA XANAX) 0.25 MG tablet Take 1 tablet by mouth as needed. for anxiety 20 tablet 5 ??? amantadine (AKA SYMMETREL) 100 MG capsule Take 1 capsule by mouth 2 times daily. 180 capsule 4 ??? Calcium Carbonate 500 [...] oxalate (AKA LEXAPRO) 10 MG tablet Take 10 mg by mouth daily (every 24 hours). ??? Glucosamine HCl-MSM (GLUCOSAMINE-MSM OR) Take 2 [...] on file. Social History Update: She lives independently with her Review of Systems: Constipation, dizziness, dry mouth, anxiety, falls and freezing Falls since last visit? She has had falls, no injuries. She is here today without her walker OBJECTIVE: Vital Signs: (includes sitting and standing blood pressure) Filed Vitals: 01/01/16 1016 01/01/16 1020 BP: 122/72 100/60 Pulse: 72 80 Weight: 68.493 kg (151 lb) Unified Parkinson's Disease Rating Scale (Part 2) Functional Score (maximum 52): 13 General: She is well dressed and groomed, appears thin, generally fit and healthy Neurologic exam: No tremor, no dyskinesia Voice is a little monotonous, but not hard to understand Finger and hand movements are done well Her gait is noticeable stifflegged, particularly the R leg, with a 2-3 step turn, shortened steps,a nd a stiff straight body posture She was able to turn and sit safely, however ASSESSMENT/PLAN: Stage 3 Parkinson's disease, with need for frequent levodopa dosing. She is content with her currentmedication schedule, feels that she has extra medication available if she needs it, and is continuing to live independently and travel despite being in the middle stages of her disease. I will see her in 6 months. Total time: 15 min, 10 min discussion Send a copy of note to: Dr. Prakash Pérez, [facility], [address] [place] [address] Parris Lucas MD 10:25 AM 01/01/2016 documented in this encounter Plan of Treatment Upcoming Encounters Date Type Specialty Care Team Description 06/08/2022 Appointment Neurology Parris Lucas MD [address] [facility] [address] [facility] [id number] (Wo rk) documented as of this encounter Visit Diagnoses Diagnosis Parkinson's disease (HRC) - Primary documented in this encounter Care Teams Police Stenographer Relationship Specialty Start Date End Date Prakash Pérez MD PCP - General 03/17/14 08/20/18 [address] [place] [address] documented as of this encounter
--- OUTSIDE RECORDS SUMMARY | 2021-12-14 22:54 | XMS_ITS | Encounter Summary ---
:1955 Author Organization [facility] Address [address] [place] [address] Care Team Providers Name Role Phone Unassigned, Provider Primary Care Provider Unavailable Reason for Visit Reason Comments Refill Encounter Details Date Type Department Care Team Description 05/23/2013 Refill [facility] Parris Lucas MD Refill [address] ruby [address] [facility] [address] [place], [place] [address] [place] [address] [phone] (Wo rk) Social History Tobacco Use Types Packs/Day Years Used Date Smoking Tobacco: Never Assessed Sex Assigned at Date Recorded Not on file documented as of this encounter Plan of Treatment Upcoming Encounters Date Type Specialty Care Team Description 06/08/2022 Appointment Neurology Parris Lucas MD [address] [facility] [address] [facility] [address] [address] (Wo rk) documented as of this encounter Visit Diagnoses Not on filedocumented in this encounter Care Teams Pediatric Care Coordinator Relationship Specialty Start Date End Date Unassigned, Provider PCP - General 03/13/00 03/16/14 [address] [place] [address] documented as of this encounter
--- OUTSIDE RECORDS SUMMARY | 2021-12-14 22:54 | XMS_ITS | Encounter Summary ---
:1955 Author Organization [facility] Address [address] [place] [address] Care Team Providers Name Role Phone Unassigned, Provider Primary Care Provider Unavailable Reason for Visit Reason Comments Follow-up Medication Problems Encounter Details Date Type Department Care Team Description 10/05/2012 Office Visit [facility] Parris Lucas MD Parkinson's disease [facility] ([address]) [address] [place] [id number] (Wo rk) Social History Tobacco Use Types Packs/Day Years Used Date Smoking Tobacco: Never Assessed Sex Assigned at Date Recorded Not on file documented as of this encounter Last Filed Vital Signs Vital Sign Reading Time Taken Comments Blood Pressure 128/80 10/05/2012 2:04 PM CDT Pulse 76 10/05/2012 2:04 PM CDT Temperature - - Respiratory Rate - - Oxygen Saturation - - Inhaled Oxygen Concentration - - Weight 66.7 kg (147 lb) 10/05/2012 2:00 PM CDT Height - - Body Mass Index 21.71 02/07/2012 8:49 AM WINDING RACK OPERATOR documented in this encounter Patient Instructions Patient InstructionsParris Lucas MD - 10/05/2012 2:44 PM CDT take sinemet 25/100 2 pills every 3 hours at 5-3-60-3-6-9 and a CR sinemet during the night, amantadine morning and noon check with Dr. Pérez about an antidepressant return in 3 months documented in this encounter Progress Notes Parris Lucas MD - 10/09/2012 3:21 PM CDT [facility] Follow-up Examination [facility] [address] [employer] [place], [place] [id number] , SUBJECTIVE: Chief Complaint Patient presents with ??? Follow-up ??? Medication Problem Stopped azilect, could not walk with it, freezing ??? Medication Problem Carb/Levo IR last about 3 hours, takes 2 tabs Current concerns and update: returns for followup. She thinks that she had nausea, dizziness, more freezing and leg cramps whileon Azilect. She stopped it 4 days ago, and is feeling somewhat better now. SHe did not tolerate the rotigotine patch. She takes sinemet 25/100 2 pills every 3 hours, about 6-7 doses/day, and a CR. She is not exercising as much as she used to. Daughter Monisha is here today and says that she has declined substantially, not eating, not getting out. Past Medical History Update: No past medical history on file. Adverse Drug Reactions: Allergies Allergen Reactions ??? Penicillins LW Reaction: Fever Current Medications: Reviewed today and updated on Health Profile in [facility]. Current Outpatient Prescriptions on File Prior to Visit Medication Sig Note Dispense Refill ??? amantadine (SYMMETREL) 100 mg capsule Take 1 capsule by mouth 2 times daily. 60 capsule 2 ??? A62-sctahkco calcium-B-6 (FOLTX) 2-1.13-25 mg Tab Take 1 tablet by mouth daily (every 24 hours).90 tablet 2 ??? calcium carbonate (TUMS EX) 300 mg (750 mg) chewable tablet Take 3 tablets by mouth daily (every24 hours). ??? carbidopa-levodopa (SINEMET CR) 50-200 mg per tablet Take 1 tablet by mouth daily as needed. Takes PRN depending on the day ??? DISCONTD: carbidopa-levodopa (SINEMET) 25-100 mg per tablet Take 1 tablet by mouth 5 times daily. 1 in am and 1 up to qid prn 06/29/2012: currently taking up to 8 tabs per day 2 tabs approximately q3 hours beginning at 6am. 720 tablet 4 ??? cholecalciferol (VITAMIN D3) 1,000 unit Tab Take 2,000 Units by mouth daily (every 24 hours). ??? docusate sodium (COLACE) 100 mg capsule Take 1 capsule by mouth daily (every 24 hours). LW Addl Instr:Indicated for: Stool Softener 180 3 ??? mirtazapine (REMERON) 15 mg tablet Take 1 tablet by mouth nightly. 90 tablet 4 ??? omega-3 fatty acids-fish oil 340-1,000 mg capsule Take 1 g by mouth 2 times daily. ??? polyethylene glycol (MIRALAX) 17 gram/dose powder Take 17 g by mouth daily (every 24 hours). LW Addl Instr:Dissolve each dose in at least 8 ounces of fluid and drink. 255 12 ??? DISCONTD: rasagiline (AZILECT) 1 mg tablet Take 1 tablet by mouth daily (every 24 hours). 30 tablet 11 No current facility-administered medications on file prior to visit. Family History Update: No family history on file. Social History Update: still living at home, is not supportive; she is starting a PD support group Review of Systems: depression, weight loss Falls since last visit? no falls, has a walker or device OBJECTIVE: Vital Signs: weight is 66.679 kg (147 lb). Her blood pressure is 128/80 and her pulse is 76. . Unified Parkinson's Disease Rating Scale (Part 2) Functional Score (maximum 52): 4 General: well dressed and directs the conversation Neurologic exam: no tremor, no dyskinesia speech is quiet but easily understandable mood seems gloomy she moved well in the chair, but did have notable festination when she got up to walk, which I haven't seen before ASSESSMENT/PLAN: Parkinson's disease, complicated by depression and a difficult social situation. She will take q3 hour sinemet IR, with a CR at bedtime, and amantadine bid am and noon. I can't write a prescription to fix her social situation, and I would like her to check in with her local doctor, who may be in a better position to provide psychosocial support than I, and perhaps to start and monitor the use of an antidepressant. I will see her back in 3 months. Total time: 30 min, 25 min discussion Send a copy of note to: Dr. Prakash Pérez, [address] [place] [id number] Parris Lucas MD 2:18 PM 10/05/2012 documented in this encounter Plan of Treatment Upcoming Encounters Date Type Specialty Care Team Description 06/08/2022 Appointment Neurology Parris Lucas MD [address] [facility] [address] [facility] [address] [address] (Wo rk) documented as of this encounter Visit Diagnoses Diagnosis Parkinson's disease (HRC) - Primary documented in this encounter Care Teams Director Of Catering Sales Relationship Specialty Start Date End Date Unassigned, Provider PCP - General 03/13/00 03/16/[address] [place] [id number] documented as of this encounter
--- OUTSIDE RECORDS SUMMARY | 2021-12-14 22:54 | XMS_ITS | Encounter Summary ---
:1955 Author Organization [facility] Address [address] [place] [address] Care Team Providers Name Role Phone Unassigned, Provider Primary Care Provider Unavailable Reason for Visit Reason Comments UPDATE Encounter Details Date Type Department Care Team Description 02/21/2012 Telephone [facility] Chelsie Toribio, RN UPDATE [address] [place], [place] [address] Social History Tobacco Use Types Packs/Day Years Used Date Smoking Tobacco: Never Assessed Sex Assigned at Date Recorded Not on file documented as of this encounter Nursing Notes Parris Lucas MD - 02/22/2012 6:39 AM CST excellent, thanks ISH REMOVER Chelsie Toribio, RN - 02/21/2012 4:01 PM CST Darlene called to say that she is feeling a little better and will be starting the 6mg today. Called and LM for Jessica asking her to call us if she could by Monday to let us know if 6mg is the correct dose for her, so we can get PA started. documented in this encounter Plan of Treatment Upcoming Encounters Date Type Specialty Care Team Description 06/08/2022 Appointment Neurology Parris Lucas MD [address] [facility] [address] [facility] [id number] (Wo rk) documented as of this encounter Visit Diagnoses Not on filedocumented in this encounter Care Teams Tool Design Draftsperson Relationship Specialty Start Date End Date Unassigned, Provider PCP - General 03/13/00 03/16/14 [address] [place] [address] documented as of this encounter
--- OUTSIDE RECORDS SUMMARY | 2021-12-14 22:54 | XMS_ITS | Encounter Summary ---
:1955 Author Organization [facility] Address [address] [place] [address] Care Team Providers Name Role Phone Prakash Pérez MD Primary Care Provider Reason for Visit Reason Comments Medication Questions Encounter Details Date Type Department Care Team Description 10/24/2014 Telephone [facility] Chelsie Toribio stars coordinator Questions [address] [place], [place] [address] Social History Tobacco Use Types Packs/Day Years Used Date Smoking Tobacco: Never Assessed Sex Assigned at Date Recorded Not on file documented as of this encounter Nursing Notes Parris Lucas MD - 10/27/2014 7:09 AM CDT agree, thanks Chelsie Toribio RN - 10/24/2014 3:55 PM CDT Jessica and her called because she has been diagnosed with bursitis in her knee. They wanted to make sure taking OTC pain medication was okay. Told her most OTC meds are okay to take and do not interfere with PD or PD meds. Might be a good idea to contact primary MD to see what they would preferher to be on. documented in this encounter Plan of Treatment Upcoming Encounters Date Type Specialty Care Team Description 06/08/2022 Appointment Neurology Parris Lucas MD [address] [facility] [address] [facility] [address] (Wo rk) documented as of this encounter Visit Diagnoses Not on filedocumented in this encounter Care Teams Bioinformatics Specialist Relationship Specialty Start Date End Date Prakash Pérez MD PCP - General 03/17/14 08/20/[address] [place] [address] documented as of this encounter
--- OUTSIDE RECORDS SUMMARY | 2021-12-14 22:54 | XMS_ITS | Encounter Summary ---
:1955 Author Organization [facility] Address [address] [place] [address] Care Team Providers Name Role Phone Unassigned, Provider Primary Care Provider Unavailable Reason for Visit Reason Comments UPDATE Encounter Details Date Type Department Care Team Description 02/13/2012 Telephone [facility] Daniela Prakash, RN UPDATE [address] [place], [place] [address] Social History Tobacco Use Types Packs/Day Years Used Date Smoking Tobacco: Never Assessed Sex Assigned at Date Recorded Not on file documented as of this encounter Nursing Notes Daniela Prakash RN - 02/13/2012 2:23 PM CST Received a phone call from patient with an update on the Neupro 2 mg patch after one week. Reports no improvement in wearing off symptoms. No side effects. She wants to continue and plans to increase to Neupro 4 mg patch tomorrow and she will call back in one week with an update. no further action needed. documented in this encounter Plan of Treatment Upcoming Encounters Date Type Specialty Care Team Description 06/08/2022 Appointment Neurology Parris Lucas MD [address] [facility] [address] [facility] [address] [address] (Wo rk) documented as of this encounter Visit Diagnoses Not on filedocumented in this encounter Care Teams Safety Supervisor Relationship Specialty Start Date End Date Unassigned, Provider PCP - General 03/13/00 03/16/[address] [place] [id number] documented as of this encounter
--- OUTSIDE RECORDS SUMMARY | 2021-12-14 22:54 | XMS_ITS | Encounter Summary ---
:1955 Author Organization [facility] Address [address] [place] [address] Care Team Providers Name Role Phone Unassigned, Provider Primary Care Provider Unavailable Reason for Visit Reason Comments Symptoms Medication Questions Mood Change WEIGHT LOSS Encounter Details Date Type Department Care Team Description 02/07/2012 Office Visit [facility] Parris Lucas MD Parkinson's disease [facility] [place] [address] [facility] ) (Primary Dx) Drive [facility] [address] [place] [address] [phone] (Wo rk) Social History Tobacco Use Types Packs/Day Years Used Date Smoking Tobacco: Never Assessed Sex Assigned at Date Recorded Not on file documented as of this encounter Last Filed Vital Signs Vital Sign Reading Time Taken Comments Blood Pressure 110/70 02/07/2012 8:54 AM TREADLE CUT OFF SAW OPERATOR Pulse 80 02/07/2012 8:54 AM TREADLE CUT OFF SAW OPERATOR Temperature - - Respiratory Rate - - Oxygen Saturation - - Inhaled Oxygen Concentration - - Weight 68.9 kg (151 lb 12.8 oz) 02/07/2012 8:49 AM TREADLE CUT OFF SAW OPERATOR Height 175.3 cm (5' 9) 02/07/2012 8:49 AM TREADLE CUT OFF SAW OPERATOR Body Mass Index 22.42 02/07/2012 8:49 AM TREADLE CUT OFF SAW OPERATOR documented in this encounter Patient Instructions Patient InstructionsParris Lucas MD - 02/07/2012 9:47 AM CST If you do not eat a meal, make sure to drink an ensure or boost drink supplement. Consider attending one of the [employer] [facility] events for socialization and exercise. Try to talk openly to family about your needs. Tiera Kaur RN rotigotine: 2mg patch for 1 week, then 4mg patch for 1 week, then a 4 and a 2mg patch for a week. Call if any questions along the way, and call at the end of the trial. return in 6 weeks or so DLE CUT OFF SAW OPERATOR documented in this encounter Progress Notes Parris Lucas MD - 02/07/2012 1:22 PM CST [facility] Follow-up Examination [facility] [address] [id number] , SUBJECTIVE: Chief Complaint Patient presents with ??? Symptoms wearing off- body bradykinesia - freezing of gait ??? Medication Question started 2 mg neupro patch last night ??? Mood feels depressed ??? Symptoms freezing of gait ??? Weight Loss not hungry Current concerns and update: she is doing the worst ever, with wearing off, freezing of gait. Her daughter called yesterday withconcern that she has depression. She has lost a little bit of weight, is not hungry, and feels depressed. No specific issues or events. Past Medical History Update: No past medical history on file. Adverse Drug Reactions: Allergies Allergen Reactions ??? Penicillins LW Reaction: Fever Current Medications: Reviewed today and updated on Health Profile in [facility]. Current outpatient prescriptions ordered prior to encounter Medication Sig Dispense Refill ??? DISCONTD: amantadine (SYMMETREL) 100 mg capsule Take 1 capsule by mouth 2 times daily. 8am and noon 60 capsule 12 ??? calcium carbonate (TUMS EX) 300 mg (750 mg) chewable tablet Take 3 tablets by mouth daily (every24 hours). ??? carbidopa-levodopa (SINEMET CR) 25-100 mg per tablet Take 2 tablets by mouth every 4 hours. 6 doses per day around the clock. 1080 tablet 3 ??? carbidopa-levodopa (SINEMET CR) 50-200 mg per tablet Take 1 tablet by mouth every 4 hours. 1 every 4 hours around the clock, 6 doses/day 540 tablet 4 ??? carbidopa-levodopa (SINEMET) 25-100 mg per tablet Take 1 tablet by mouth 5 times daily. 1 in am and 1 up to qid prn 450 tablet 4 ??? cholecalciferol (VITAMIN D3) 1,000 unit Tab Take 1,000 Units by mouth daily (every 24 hours). ??? docusate sodium (COLACE) 100 mg capsule Take 1 capsule by mouth daily (every 24 hours). LW Addl Instr:Indicated for: Stool Softener 180 3 ??? DISCONTD: Ergocalciferol, Vitamin D2, (VITAMIN D) 400 unit Tab Take by mouth daily (every 24 hours). ??? folic acid-vit B6-vit B12 (FOLTX) 2.5-25-2 mg tablet Take 1 tablet by mouth daily (every 24 hours). 90 tablet 3 ??? omega-3 fatty acids-fish oil 340-1,000 mg capsule Take 1 g by mouth 2 times daily. ??? DISCONTD: Bcsdd-9-TWY-EPA-Fish Oil 805-1,000 mg Cap Take 1 capsule by mouth daily (every 24 hours). ??? polyethylene glycol (MIRALAX) 17 gram/dose powder Take 17 g by mouth daily (every 24 hours). LW Addl Instr:Dissolve each dose in at least 8 ounces of fluid and drink. 255 12 ??? rotigotine (NEUPRO) 2 mg/[address] 1 patch onto the skin daily (every 24 hours). exp: 05-19-13 Lot: [id number] 14 patch 0 ??? rotigotine (NEUPRO) 4 mg/[address] 1 patch onto the skin daily (every 24 hours). exp: 05-22-13 lot: [id number] 14 patch Family History Update: No family history on file. Social History Update: no changes since last visit Review of Systems: mood is the major issue Falls since last visit? no falls, but some freezing of gait OBJECTIVE: Vital Signs: height is 1.753 m (5' 9) and weight is 68.856 kg (151 lb 12.8 oz). Her blood pressure is 110/70 and her pulse is 80. . Unified Parkinson's Disease Rating Scale (Part 2) Functional Score (maximum 52): 11 General: immaculately dressed and groomed smiles easily and talks well Neurologic exam: mild dyskinesia of the trunk no tremor voice quality is normal rises from a chair easily and walks well, but with a shortened stride length and a tendency to festinate, multistep turn ASSESSMENT/PLAN: Stage 2 Parkinson's disease. She is reaching a stage of her disease where management is a little more difficult, but I think we can get her back on her feet again. I will start her on rotigotine, to provide benefit over night and in the morning, and to cover the gaps between sinemet doses. I will waitto treat depression with an antidepressant, so as not to start 2 drugs simultaneously. I will see her back in 6 weeks, with PT scheduled on the day of her return. Total time: 25 min, 20 min discussion Send a copy of note to: Dr. Prakash Pérez, [address] [place] [id number] Parris Lucas MD 9:22 AM 02/07/2012 DLE CUT OFF SAW OPERATOR Tiera Kaur RN - 02/07/2012 9:28 AM CST Annual National Parkinson Foundation registry visit. Overall past year has had greater impact of PD with more slowness and some freezing. Also had sciatica problems which decreased her exercise and overall activity. Also has some problems with her not understanding her increasing PD symptoms. Yet she refuses to have him join her in her clinic vis its. Weight is down 3 pounds. She eats a yogurt for breakfast and not again until supper. She does like to cook and eats a healthy diet. Bowels are regular with daily colace and miralax. Reports 0 emergency room visits. 0 Hospitalizations Exercises 1 hour weekly. Will try to increase activity since sciatica is improved. Needs referral toPT for exercise program and freezing. 0 Falls. Timed Up and Go is 16 seconds due to off time and bradykinesia. Immediate recall 5 /5 words. Delayed recall 4/5 words. Named 20 animals in 1 minute PDQ 39 scores Mobility ADL 07/27 Emotional 11/27 Stigma 05/19 Social support 04/17 Cognition 05/19 Communication 03/17 Bodily discomfort 05/15 Caregiver not present for visit. Suggest referrals to PT for exercise program and freezing strategies. Also encouraged her to participate in some of the PD exercise groups such as [place] [facility]. Tiera Kaur RN DLE CUT OFF SAW OPERATOR documented in this encounter Plan of Treatment Upcoming Encounters Date Type Specialty Care Team Description 06/08/2022 Appointment Neurology Parris Lucas MD [address] [facility] [address] [facility] [address] (Wo rk) documented as of this encounter Visit Diagnoses Diagnosis Parkinson's disease (HRC) - Primary documented in this encounter Care Teams Circulator Relationship Specialty Start Date End Date Unassigned, Provider PCP - General 03/13/00 03/16/[address] [place] [id number] documented as of this encounter
--- OUTSIDE RECORDS SUMMARY | 2021-12-14 22:54 | XMS_ITS | Encounter Summary ---
:1955 Author Organization [facility] Address [address] [place] [address] Care Team Providers Name Role Phone Unassigned, Provider Primary Care Provider Unavailable Reason for Visit Reason Comments Refill Encounter Details Date Type Department Care Team Description 10/25/2013 Refill [facility] Ban Hunt, RN Refill [address] [place], [place] [address] Social History Tobacco Use Types Packs/Day Years Used Date Smoking Tobacco: Never Assessed Sex Assigned at Date Recorded Not on file documented as of this encounter Nursing Notes Ban Hunt, RN - 10/25/2013 11:56 AM CDT SHERIN 05/31/2013. No Change in medication. Please sign if agree. documented in this encounter Plan of Treatment Upcoming Encounters Date Type Specialty Care Team Description 06/08/2022 Appointment Neurology Parris Lucas MD [address] [facility] [address] [facility] [address] (Wo rk) documented as of this encounter Visit Diagnoses Not on filedocumented in this encounter Care Teams Byproducts Supervisor Relationship Specialty Start Date End Date Unassigned, Provider PCP - General 03/13/00 03/16/14 [address] [place] [address] documented as of this encounter
--- OUTSIDE RECORDS SUMMARY | 2021-12-14 22:54 | XMS_ITS | Encounter Summary ---
:1955 Author [facility] Address [address] [place] [address] Care Team Providers Name Role Phone Unassigned, Provider Primary Care Provider Unavailable Reason for Referral Specialty Diagnoses / Procedures Referred By Contact Refer red To Contact Parris Lucas MD [address] [facility] [address] [place], [place] [address] Referral ID Status Reason Start Date Expiration Date Visits Requ ested Visits Authorized ENGINE PERFORMANCE ENGINEER Reason for Visit Reason Comments Balance/gait Dysfunction Encounter Details Date Type Department Care Team Description 03/23/2012 Initial Consult [facility] Chelsie Weston Par kinson's disease (HRC); Therapy Abnormality of gait [address] [employer] [employer] [place], [place] [address] Social History Tobacco Use Types Packs/Day Years Used Date Smoking Tobacco: Never Assessed Sex Assigned at Date Recorded Not on file documented as of this encounter Progress Notes Chelsie Weston - 03/23/2012 5:36 PM CST Physical Therapy Parkinson Evaluation/Plan of Care Initial Certification Period: 03/23/2012 to 06/20/12 Referring Provider: Dr. Parris Lucas. Primary Diagnosis: Parkinson's Disease (332.0). Reason for Referral: Outpatient PT. Exacerbation Date: 02/04/2012 Last Referring MD Visit: 02/07/2012 SUBJECTIVE: Current Comorbidities: Patient has a recent history of sciatic pain; denies pain or discomfort today. Mobility Limitations Reported: Gait deficits. Freezing; frustration around freezing; does not want to exercise in public/embarrassed by freezing. Balance/Falls in past 6 months (Average): None reported. Motor Fluctuations Reported: Yes. Dyskinesia Reported - United Parkinson's Disease Rating Scale (UPDRS) - None. Pain Screen: No pain. Past Medical History: Refer to Electronic Medical Records for past medical history, medications, andadverse drug reactions. Unremarkable per patient report. Assistive Device: Has walking poles and 4WW at home - she states she intends to use 4WW more for longer distances, for upcoming travel due to difficulty in crowded areas (in airport) Support System: Lives with primary director career services. Living Situation: Private home, all on 1 level. Handicap accessible -Living location: Outlying [place] area. -Living Environment: Urban-mostly paved areas to ambulate. Driving: Restricted. Community Mobility: Only tolerates short distances. Frequency of Outings: Leaves home on a daily basis. Leisure Activities: Housework, visiting with friends Formal Exercises: Physical therapy home exercise program. Exercise Frequency: Several times per week. Was exercising more frequently/intensely; has been limited recently by sciatic pain, as well as embarrassment about movement problems when in public gym (shestated people talk) Communication: Clear. Occupation: On disability Patient's Therapy Goal: Learn new exercises for home program OBJECTIVE: Blood Pressure: Not Symptomatic. Behavioral Characteristics: Alert. Cooperative. Pleasant. Emotional when talking about her limitations. Patient stated she think she is depressed (she was tearful during session). She was encouraged todiscuss this further with Dr. Lucas (who she saw today after PT session) for possible pharmacological management. Motor Function at Time of Eval: On - best level of functioning on medication. Tremor Observed: None. Body Bradykinesia and Hypokinesia: (UPDRS)(Combining slowness, hesitancy, decreased armswing, small amplitude, and poverty of movement in general) 1=Minimal slowness, giving movement a deliberate character, could be normal for some persons. Possible reduced amplitude. Dyskinesia (at time of evaluation): Absent. Range of Motion: Grossly within normal limits. Muscle Strength Deficits: Left lower extremity moderately impaired (3/5 grossly). Right lower extremity moderately impaired (3/5 grossly). Posture/Alignment: (Gross Assessment) Forward head minimal. Thoracic kyphosis increased minimal. Tends to hold right shoulder in slightly extended position. Transfers: -Sit to stand: Safe and independent. -Stand to sit: Safe and independent. Functional Testing: -Timed Up and Go Test (TUG): (Subject stands from arm chair, walks 3 meters (9 feet 10 inches), and sits back down in chair. Test is timed. Scores of young adults<10 seconds, older adults taking >=13.5 seconds classified as fallers with prediction rate of 90%, >30 second indicative of significant difficulties with ADL's) - 8.56 seconds. -30 Sec Sit Stands: 12. ([place]: 13+ = low fall risk; 8-12 = medium fall risk, Below 8 = high fall risk). -Five Times Sit to Stand Test (FTSST): (above 15 seconds considered abnormal for older adults). No arms - 12.6 seconds. -Divided Attention TUG: -TUG Cognitive: 14.38 seconds. Gait: No assistive device. -Assistance required: Independent. -General Gait Description: Reduced arm swing, bilateral. Step hypokinesia, bilateral. -Gait Velocity (Distance/Time; <=2.5 ft/sec considered high fall risk): 3.06 ft/second. Balance: Biomechanical Constraints: -Base of support: Narrow. -Center of Mass alignment: Abnormal anterior/posterior. -Ankle Strength and ROM: Able to stand on toes at maximal height and stand on heels with front of foot up. -Hip/Trunk Lateral Strength: Moderate: Abducts one hip for 10 seconds with vertical trunk. Reactive Postural Response - In Place: -Forward: (Isometric push back from shoulders with quick release): Recovers stability with ankles, no added arm or hip motion. -Backward (Isometric push forward then scapulae with quick release): Takes a step to recover stability. Comments: Pull Test (+) for retropulsion - patient took several (5-6) small steps back in order to recover balance. Clinical Global Impression: Overall, how would you rate your walking and ability to rise from a chair BEFORE your appointment today? (0=excellent-10=poor) - - Overall, how would you rate your walking and ability to rise from a chair AFTER your appointment today? (0=excellent-10=poor) - - TREATMENT TODAY -Physical Therapy Evaluation (CPT 71636) -Gait training (CPT 20683) 5 minutes. Patient's poles are higher than optimal, but are not adjustable. Briefly reviewed pole walking technique to facilitate reciprocal arm swing and increase intensity of exercise; used demo 4WW (patient did not have own) to instruct patient in proper fitting of deviceas well as safe management of brakes, seat. -Neuromuscular reeducation (CPT 89884) - 15 minutes: Instruction in high amplitude backward steppingexercise using poles for support and to facilitate forward position of arms/shoulders (patient has tendency to lean shoulders back behind MAXIMILIANO). Instruction in staggered stance to increase A/P stabilityduring daily functional activities. Emphasis on wide MAXIMILIANO, especially during transitional movements (sit to stand) and standing activities. Discussed impact of secondary cognitive tasks on walking pattern, importance of conscious attention to movement. Provided patient with a list of ideas for secondary cognitive tasks to practice while walking at home (without crowds/other distractions) to address this deficit. -Therapeutic exercise (CPT 36091) - 10 minutes: Instruction in sit to stand without arms and standing hip abduction exercises - each x 10 reps. Stand up and be strong brochure issued. Patient/Carepartner instructed in: -Home program. Resources Issued: -Exercise handouts. -Retropulsion handout. Resources Recommended: -Patient purchased Delay the Disease - Functional Fitness DVD for trial at home, given her reluctance to return to public gym. Response to treatment: Patient was able to return demo all newly instructed exercises with good technique following training and repetition. She appeared receptive and motivated, and she also seemed francisco more encouraged/in a better mood by end of session. Plan for next treatment: Review/upgrade HEP; assess if home DVD effective/useful for patient; pole walking; retropulsion compensation and high amplitude exercises/DTT ASSESSMENT: Therapist Impression: 56 yo female with PD and recent decline in participation in exercise program due to sciatica and not feeling comfortable in public setting because of more frequent freezing. She has had no falls in the last 6 months. She reports feeling that she is depressed and she plans to talkto MD about this for possible pharmacologic management. She was somewhat tearful in beginning of session; however with encouragement and instruction in exercises that she can do at home to increase level of difficulty and intensity, she appeared to be more optimistic by end. In addition to newly instructed home exercises, PT also prescribed home exercise DVD (Delay the Disease - Functional Fitness)to increase compliance/carryover of exercises. Patient did not show any signs of freezing during today's session; she did present with mild-mod retropulsion, weakness, hypokinesia, and mildly reduced reactive postural response. She was receptive to PT recommendations for newly instructed exercises andstrategies to reduce fall risk. She would benefit from follow-up PT for progression of HEP and for instruction in exercises specific to PD in order to delay progression of disease. Patient lives far from clinic; however she was in agreement to return 1x/month for 2-3 months.. - Physical Therapy Practice Pattern: Primary prevention/risk reduction for loss of balance and falling. (5A)Impaired motor function, sensory integration associated with disorder central nervous system (5E). Impairments: Gait pattern changes. Freezing of gait. Hypokinesia. Knowledge deficit. Muscle weakness. Retropulsion. Functional Limitations: -Gait instability. Mobility Restrictions: Limited community ambulation >1 block. Possible Barriers to Goal Achievement: Lives a distance from clinic-difficult to get here. Rehab Prognosis: Good. PLAN Planned Treatment: ADL/Home program. Fall prevention. Cuing strategies. Gait training. Assistive device - walker. Assistive device - hiking pole. Neuromuscular re-education. Therapeutic activities. Therapeutic exercise. Frequency/Duration: Frequency/duration: 1x/month x 3 months for 4 visits. Discharge Plan: Satisfactory goals are achieved. Estimated Discharge: 90 days. Consent: Results of evaluation were reviewed with patient. Patient was receptive to treatment plan and participated in setting goals. Risks, benefits and alternatives to treatment were reviewed. Expected Functional Outcomes: -Patient/Carepartner to verbalize understanding of physical therapy recommendations in 2-4 visits. -Patient to demonstrate independence of home exercise program with updates/progression as indicated in 2-4 visits. -Patient/Carepartner to verbalize understanding of fall prevention strategies in 2-4 visits. -Patient/Carepartner to verbalize understanding of appropriate cuing strategies to facilitate safe mobility in 2-4 visits. -Patient to demonstrate safe independent use of assistive device - - walking poles - in 90 days. TOTAL TREATMENT TIME: 60 minutes. Electronically signed by: Chelsie Weston, PT [id number], 03/23/2012 The genetics physician is completed by the therapist and the physician electronic signature certifies medical necessity for the plan above. *SH~REHAB~PTPARKEVA~ Shorthand Note completed on: 03/23/2012 5:31 PM ENGINE PERFORMANCE ENGINEER documented in this encounter Plan of Treatment Upcoming Encounters Date Type Specialty Care Team Description 06/08/2022 Appointment Neurology Parris Lucas MD [address] [facility] [address] [facility] [address] (Wo rk) Scheduled Referrals Name Type Priority Associated Diagnoses Order S chedule Physical Therapy Referral Routine Parkinson's disease (HRC ) Ordered: 03/23/2012 documented as of this encounter Visit Diagnoses Diagnosis Parkinson's disease (HRC) Abnormality of gait documented in this encounter Care Teams Hair Assistant Relationship Specialty Start Date End Date Unassigned, Provider PCP - General 03/13/00 03/16/[address] [place] [id number] documented as of this encounter
--- OUTSIDE RECORDS SUMMARY | 2021-12-14 22:54 | XMS_ITS | Encounter Summary ---
:1955 Author Organization [facility] Address [address] [place] [address] Care Team Providers Name Role Phone Prakash Pérez MD Primary Care Provider Reason for Visit Reason Comments Refill Encounter Details Date Type Department Care Team Description 08/29/2014 Refill [facility] Ban Hunt, RN Refill [address] [place] [address] Social History Tobacco Use Types Packs/Day Years Used Date Smoking Tobacco: Never Assessed Sex Assigned at Date Recorded Not on file documented as of this encounter Progress Notes Ban Hunt RN - 08/29/2014 3:37 PM CDT Addended by: BAN HUNT on: 08/29/2014 03:37 PM Modules accepted: Orders documented in this encounter Nursing Notes Ban Hunt RN - 08/29/2014 3:[address] Lucas- Can you please sign for 100 more capsule samples of rytary for Darlene. Her insurance denied coverage and we need to do a PA. I will place in mail to her. Ban Hunt RN - 08/29/2014 10:42 AM CDT Spoke with Darlene and she is happy with the Rytary and would like a prescription sent to her local pharmacy. If agree, please sign pended order documented in this encounter Plan of Treatment Upcoming Encounters Date Type Specialty Care Team Description 06/08/2022 Appointment Neurology Parris Lucas MD [address] [facility] [address] [facility] [address] (Wo rk) documented as of this encounter Visit Diagnoses Not on filedocumented in this encounter Care Teams Gyroscope Technician Relationship Specialty Start Date End Date Prakash Pérez MD PCP - General 03/17/14 08/20/[address] [place] [address] documented as of this encounter
--- OUTSIDE RECORDS SUMMARY | 2021-12-14 22:54 | XMS_ITS | Encounter Summary ---
:1955 Author Organization [facility] Address [address] [place] [address] Care Team Providers Name Role Phone Unassigned, Provider Primary Care Provider Unavailable Reason for Visit Reason Comments Refill Encounter Details Date Type Department Care Team Description 02/24/2014 Telephone [facility] Ban Hunt, RN Refill [address] [place], [place] [address] Social History Tobacco Use Types Packs/Day Years Used Date Smoking Tobacco: Never Assessed Sex Assigned at Date Recorded Not on file documented as of this encounter Nursing Notes Ban Hunt, RN - 02/24/2014 4:22 PM CST Darlene called and is requesting her carb/levo CR and IR, and amantadine to be 90 day supplies andsent to [facility] in [place]. last visit 12/13/2013. No medication changes. Renewed medication per medication refill protocol. BONDSMAN documented in this encounter Plan of Treatment Upcoming Encounters Date Type Specialty Care Team Description 06/08/2022 Appointment Neurology Parris Lucas MD [address] [facility] [address] [facility] N [address] (Wo rk) documented as of this encounter Visit Diagnoses Not on filedocumented in this encounter Care Teams System Validation Engineer Relationship Specialty Start Date End Date Unassigned, Provider PCP - General 03/13/00 03/16/[address] [place] [address] documented as of this encounter
--- OUTSIDE RECORDS SUMMARY | 2021-12-14 22:54 | XMS_ITS | Encounter Summary ---
:1955 Author Organization [facility] Address [address] [place] [address] Care Team Providers Name Role Phone Unassigned, Provider Primary Care Provider Unavailable Reason for Visit Reason Comments Phone Call Encounter Details Date Type Department Care Team Description 01/09/2013 Telephone [place] [facility] Daniela Prakash, RN Phone Call [phone] [place], [place] [address] Social History Tobacco Use Types Packs/Day Years Used Date Smoking Tobacco: Never Assessed Sex Assigned at Date Recorded Not on file documented as of this encounter Nursing Notes Daniela Prakash RN - 01/09/2013 9:36 AM CST Patient completed several days of diaries to outline PD symptoms. Reviewed by Dr. Lucas and her recommendations called to patient. Patient instructed to continue current dose of Sinemet every 2 hours. Patient has a follow up appointment 01/17/2013. L REMOVER documented in this encounter Plan of Treatment Upcoming Encounters Date Type Specialty Care Team Description 06/08/2022 Appointment Neurology Parris Lucas MD [address] [facility] [address] [facility] N [address] (Wo rk) documented as of this encounter Visit Diagnoses Not on filedocumented in this encounter Care Teams Chha Relationship Specialty Start Date End Date Unassigned, Provider PCP - General 03/13/00 03/16/[address] [place] [id number] documented as of this encounter
--- OUTSIDE RECORDS SUMMARY | 2021-12-14 22:54 | XMS_ITS | Encounter Summary ---
:1955 Author Organization [facility] Address [address] [place] [address] Care Team Providers Name Role Phone Unassigned, Provider Primary Care Provider Unavailable Reason for Visit Reason Comments Medication Questions Encounter Details Date Type Department Care Team Description 10/01/2012 Telephone [place] [facility] Daniela Prakash Medication Questions [address] tung Medeiros RN [place], [place] [address] Social History Tobacco Use Types Packs/Day Years Used Date Smoking Tobacco: Never Assessed Sex Assigned at Date Recorded Not on file documented as of this encounter Nursing Notes Parris Lucas MD - 10/01/2012 5:13 PM CDT thanks, I agree with the plan Daniela Randolph RN - 10/01/2012 10:36 AM CDT Patient has been on Azilect for 3 months. Gait freezing is worse the last 3 weeks, sometimes it is so bad I can not move and I have to sit down and wait. Patient thinks the Azilect has made it worse and wants to stop it. She has never been to physical therapy for freezing strategies. Has an appointment with Dr. Lucas in 5 days, advised to stop Azilect and follow up with Dr. Lucas atthe end of the week. Daniela Randolph RN - 10/01/2012 9:31 AM CDT Patient reports she is on Azilect. It is affecting me terribly. I wonder if I should take it. left message for patient, nurse will try to call her back. documented in this encounter Plan of Treatment Upcoming Encounters Date Type Specialty Care Team Description 06/08/2022 Appointment Neurology Parris Lucas MD [address] [facility] [address] [facility] [address] (Wo rk) documented as of this encounter Visit Diagnoses Not on filedocumented in this encounter Care Teams Hand Binder Stripper Relationship Specialty Start Date End Date Unassigned, Provider PCP - General 03/13/00 03/16/[address] [place] [phone] documented as of this encounter
--- OUTSIDE RECORDS SUMMARY | 2021-12-14 22:54 | XMS_ITS | Encounter Summary ---
:1955 Author Organization [facility] Address [address] [place] [address] Care Team Providers Name Role Phone Unassigned, Provider Primary Care Provider Unavailable Reason for Visit Reason Comments Follow-up Encounter Details Date Type Department Care Team Description 01/17/2013 Office Visit [facility] Parris Lucas MD Parkinson's disease [facility] [place] [facility] [place] [address] [place] [address] ([address] [place] [id number] (Wo rk) Social History Tobacco Use Types Packs/Day Years Used Date Smoking Tobacco: Never Assessed Sex Assigned at Date Recorded Not on file documented as of this encounter Last Filed Vital Signs Vital Sign Reading Time Taken Comments Blood Pressure 114/65 01/17/2013 10:00 AM FLY RAIL OPERATOR Pulse 77 01/17/2013 10:00 AM FLY RAIL OPERATOR Temperature - - Respiratory Rate - - Oxygen Saturation - - Inhaled Oxygen Concentration - - Weight 69.6 kg (153 lb 8 oz) 01/17/2013 9:57 AM FLY RAIL OPERATOR Height 172.7 cm (5' 8) 01/17/2013 9:57 AM FLY RAIL OPERATOR Body Mass Index 23.34 01/17/2013 9:57 AM FLY RAIL OPERATOR documented in this encounter Patient Instructions Patient InstructionsParris Lucas MD - 01/17/2013 10:25 AM CST add xanax 0.25 mg 1-2 pills before an anxiety provoking event return in 4 months RAIL OPERATOR documented in this encounter Progress Notes Parris Lucas MD - 01/17/2013 2:40 PM CST [facility] Follow-up Examination [facility] [address] [place] [id number] , SUBJECTIVE: Chief Complaint Patient presents with ??? Follow-up freezing, walking backwards more Current concerns and update: returns for followup. SHe continues to notice more and more freezing of gait, more off time, despite taking sinemet IR every 2 hours. She is taking a protein supplement, but hasn't done it Past Medical History Update: No past medical history on file. Adverse Drug Reactions: Allergies Allergen Reactions ??? Penicillins LW Reaction: Fever ??? Sulfa (Sulfonamide Antibiotics) rash Current Medications: Reviewed today and updated on Health Profile in [facility]. Current Outpatient Prescriptions on File Prior to Visit Medication Sig Note Dispense Refill ??? amantadine HCl (SYMMETREL) 100 mg capsule TAKE ONE CAPSULE BY MOUTH TWICE DAILY 180 capsule 3 ??? [DISCONTINUED] [id number] calcium-B-6 (FOLTX) 2-1.13-25 mg Tab Take 1 tablet by mouth daily (every 24 hours). 90 tablet 2 ??? calcium carbonate (TUMS EX) 300 mg (750 mg) chewable tablet Take 3 tablets by mouth daily (every24 hours). ??? carbidopa-levodopa (SINEMET CR) 50-200 mg per tablet Take 1 tablet by mouth See Admin Instructions. Take 1 tab at bedtime, plus 2 tabs/day extra as needed. 90 tablet 11 ??? [DISCONTINUED] carbidopa-levodopa (SINEMET CR) 50-200 mg per tablet Take 1 tablet by mouth dailyas needed. Takes PRN depending on the day 01/17/2013: 1-3 tabs prn/daily 90 tablet 4 ??? carbidopa-levodopa (SINEMET) 25-100 mg per tablet Take 2 tablets by mouth every 2 hours. Take [id number], total of 16 tabs. ??? cholecalciferol (VITAMIN D3) 1,000 unit Tab Take 2,000 Units by mouth daily (every 24 hours). ??? docusate sodium (COLACE) 100 mg capsule Take 1 capsule by mouth daily (every 24 hours). LW Addl Instr:Indicated for: Stool Softener 180 3 ??? [DISCONTINUED] drug not in computer Take 1 Dose by mouth daily (every 24 hours). Almased ??? mirtazapine (REMERON) 15 mg tablet Take 1 tablet by mouth nightly. 90 tablet 4 ??? omega-3 fatty acids-fish oil 340-1,000 mg capsule Take 1 g by mouth 2 times daily. ??? polyethylene glycol (MIRALAX) 17 gram/dose powder Take 17 g by mouth daily (every 24 hours). LW Addl Instr:Dissolve each dose in at least 8 ounces of fluid and drink. 01/17/2013: prn 255 12 No current facility-administered medications on file prior to visit. Family History Update: No family history on file. Social History Update: she loves at home with her Gene, but comes here alone Review of Systems: dry mouth, drooling, dyskinesia, freezing, no falls Falls since last visit? none OBJECTIVE: Vital Signs: height is 1.727 m (5' 8) and weight is 69.627 kg (153 lb 8 oz). Her blood pressure is 114/65 and her pulse is 77. . Unified Parkinson's Disease Rating Scale (Part 2) Functional Score (maximum 52): 13 General: she looks thomas, as always; well dressed and groomed, appears fit and healthy Neurologic exam: she had mild dsykinesia as we began, which faded as the exam went on no tremor chaparro from a chair easily, walked well (I was seeing her at a good time) voice was essentially normal The mental status was normal in all spheres: attention, concentration, memory, fund of knowledge, and language. ASSESSMENT/PLAN: Stage 2 PD, with need for frequent medication dosing and unexpected/unpredictable off times, dyskinesia. I commented that next year may be a time to consider DBS surgery, as we are about hitting a limit as to how frequently she can dose her sinemet, and she still has a lot of off time. I gave her xanax to use prior to anxiety provoking events, as the anxiety tends to trigger off episodes. I will see her back in 4 months. Total time: 25 min, 20 min discussion Send a copy of note to: Dr. Prakash Pérez, [address] [place] [address] Parris Lucas MD 10:06 AM 01/17/2013 RAIL OPERATOR documented in this encounter Plan of Treatment Upcoming Encounters Date Type Specialty Care Team Description 06/08/2022 Appointment Neurology Parris Lucas MD [address] [facility] [address] [facility] [id number] (Wo rk) documented as of this encounter Visit Diagnoses Diagnosis Parkinson's disease (HRC) - Primary documented in this encounter Care Teams Lineman Relationship Specialty Start Date End Date Unassigned, Provider PCP - General 03/13/00 03/16/14 [address] [place] [address] documented as of this encounter
--- OUTSIDE RECORDS SUMMARY | 2021-12-14 22:54 | XMS_ITS | Encounter Summary ---
:1955 Author Organization [employer] Address [address], [place] [address] Care Team Providers Name Role Phone Prakash Pérez MD Primary Care Provider Reason for Visit Reason Comments ANXIETY WALKING, DIFFICULTY FALL Nausea DIZZINESS Headache Other Encounter Details Date Type Department Care Team Description 03/17/2014 Office Visit [facility] Parris Lucas MD [facility] [place] [address] [facility] [address] [place] [phone] (Wo rk) Social History Tobacco Use Types Packs/Day Years Used Date Smoking Tobacco: Never Assessed Sex Assigned at Date Recorded Not on file documented as of this encounter Last Filed Vital Signs Vital Sign Reading Time Taken Comments Blood Pressure 100/60 03/17/2014 4:20 PM CLAY PUDDLER Pulse 72 03/17/2014 4:20 PM CLAY PUDDLER Temperature - - Respiratory Rate - - Oxygen Saturation - - Inhaled Oxygen Concentration - - Weight 73.3 kg (161 lb 11.2 oz) 03/17/2014 4:18 PM CLAY PUDDLER Height - - Body Mass Index 24.59 01/17/2013 9:57 AM CLAY PUDDLER documented in this encounter Patient Instructions Patient InstructionsParris Lucas MD - 03/17/2014 4:54 PM CST Please call the [facility] nurse line for any questions, concerns or updates, . take prilosec daily for a couple of weeks for nausea and acid reflux return in [place] have fun in [place]! PUDDLER documented in this encounter Progress Notes Parris Lucas MD - 03/18/2014 7:19 AM CST [facility] ANNUAL Follow-up Examination [facility] [address] [place] [address] SUBJECTIVE: Chief Complaint Patient presents with ??? Anxiety ??? Difficulty Walking freezing ??? Fall 2-3 falls since December. Whole body will get weak and falls- anxiety makes it worse ??? Nausea Frequent post meals ??? Dizziness ??? Headache Across forehead frequently ??? Other Leaving to [place] for a month next week Update and other concerns: returns for followup of Parkinson's disease. She is leaving for a month in [place] later this week. She has had occasional bad moments, where she feels weak all over and then falls down, probably due to low blood pressure. She often has nausea after eating. She has a fair amount of anxiety, sometimes has bifrontal headaches. Past Medical History Update: no specific issues Adverse Drug Reactions: Adverse Drug Reactions were reviewed today, and updated on the Health Profile of [facility]. Current Medications: Reviewed today and updated on Health Profile in [facility]. Current Outpatient Prescriptions on File Prior to Visit Medication Sig Dispense Refill ??? ALPRAZolam (XANAX) 0.25 mg tablet Take 1 tablet by mouth as needed for Anxiety. 20 tablet 5 ??? [DISCONTINUED] ALPRAZolam (XANAX) 0.25 mg tablet Take 1 tablet by mouth daily as needed for Anxiety. 20 tablet 5 ??? amantadine HCl (SYMMETREL) 100 mg capsule Take 1 capsule by mouth 2 times daily. 180 capsule 2 ??? calcium carbonate (TUMS EX) 300 mg (750 mg) chewable tablet Take 3 tablets by mouth daily (every24 hours). ??? carbidopa-levodopa (SINEMET CR) 50-200 mg CR per tablet Take 1 tablet by mouth See Admin Instructions. Take 1 tab at bedtime, plus 2 tabs/day extra as needed. 270 tablet 2 ??? carbidopa-levodopa (SINEMET) 25-100 mg per tablet Take 2 tablets by mouth every 2 hours. Take ee4-2-12-12-2-4-6-8, total of 16 tabs. 1440 tablet 2 ??? cholecalciferol (VITAMIN D3) 1,000 unit Tab Take 2,000 Units by mouth daily (every 24 hours). ??? DOCUSATE CALCIUM (STOOL SOFTENER ORAL) Take 1 tablet by mouth daily (every 24 hours). ??? escitalopram (LEXAPRO) 10 mg tablet Take 10 mg by mouth daily (every 24 hours). ??? mirtazapine (REMERON) 30 mg tablet TAKE ONE HALF TABLET BY MOUTH NIGHTLY AT BEDTIME 45 tablet 7 ??? multivitamin (THERAGRAN) tablet Take 1 tablet by mouth daily (every 24 hours). ??? omega-3 fatty acids-fish oil 340-1,000 mg capsule Take 1 g by mouth 2 times daily. No current facility-administered medications on file prior to visit. Family History Update: No new information to report Social History Update: lives in private home work status: not working financial counselor: no concerns driving status: no concerns family involvement, need for assistance: no concerns alcohol/tobacco: no smoking, no alcohol exercise: will start exercising in [place] safety concerns: falls, uses a walker sometimes, and has freezing Advance health care directive: not in our records other: no other specific issues Review of Systems: cognitive: no concerns autonomic: frequent voiding, manageable constipation psychiatric: (PQRS measure #290) mood is always a little down, but better today sleep: (PQRS measure #292) sleep is OK falls/assistive device: uses a walker sometimes dyskinesia/wearing off: she has some dyskinesia skin: not discussed weight/nutrition: weight is down a couple of pounds, but basically stable other: none OBJECTIVE: Vital Signs: includes sitting and standing blood pressure Filed Vitals: 03/17/14 1618 03/17/14 1620 BP: 130/60 100/60 Pulse: 70 72 Weight: 161 lb 11.2 oz (73.347 kg) Unified Parkinson's Disease Rating Scale (Part 2) Functional Score (maximum 52): 10 General: she is well groomed and appears generally healthy Neurologic exam: cognitive assessment (PQRS measure #291): Mental status: normal attention, concentration, memory, fund of knowledge, and language. she is moving pretty well as I am seeing her, a little dyskinetic but not bad able to get up from the chair independently and walks well, hobbles a little on the L leg ASSESSMENT: (review of diagnosis and discussion of any atypical features; PQRS measure #289) Stage 3 Parkinson's disease, looks emotionally a little better today. I think she may be having episodes of orthostatic hypotension, so we discussed that. I suggested that she try daily prilosec for a couple of weeks for her indigestion/reflux. I am pleased that she is going down to [place], where she can h opefully do some exercise like walking on the beach, without having to worry about injury with falls. I will see her back in July. PLAN: medical and surgical treatment options: (PQRS measure #294) no changes rehabilitation options: (PQRS measure #293) none today participation in research: not today safety concerns counseling: falls, orthostasis return in 4 months Total time: 25 minutes, Counseling time: 20 minutes about issues described in Assessment and Plan Send copy to: Dr. Prakash Pérez, [address] [place] [address] Parris Lucas MD 4:40 PM 03/17/2014 *Note: underlined items are the 10 items included in the 2011 [place] [employer] Parkinson's Disease Practice Parameters for the annual examination of a person with Parkinson's disease PUDDLER documented in this encounter Plan of Treatment Upcoming Encounters Date Type Specialty Care Team Description 06/08/2022 Appointment Neurology Parris Lucas MD [address] [facility] [address] [facility] N [address] (Wo rk) documented as of this encounter Visit Diagnoses Diagnosis Parkinson's disease (HRC) - Primary documented in this encounter Care Teams Bus Greaser Relationship Specialty Start Date End Date Prakash Pérez MD PCP - General 03/17/14 08/20/18 [address] [place] [address] documented as of this encounter
--- OUTSIDE RECORDS SUMMARY | 2021-12-14 22:54 | XMS_ITS | Encounter Summary ---
:1955 Author Organization [facility] Address [address] [place] [address] Care Team Providers Name Role Phone Unassigned, Provider Primary Care Provider Unavailable Reason for Visit Reason Comments UPDATE Encounter Details Date Type Department Care Team Description 08/02/2012 Telephone [place] [facility] Daniela Prakash, RN UPDATE [address] [place], [place] [address] Social History Tobacco Use Types Packs/Day Years Used Date Smoking Tobacco: Never Assessed Sex Assigned at Date Recorded Not on file documented as of this encounter Nursing Notes Parris Lucas MD - 08/02/2012 12:53 PM CDT excellent, glad it is helping! Daniela Prakash RN - 08/02/2012 10:36 AM CDT Patient last seen June 2012 and started on Azilect. Today, patient reports she feels like she is doing better on the Azilect. She plans to continue. Has a follow up appointment in October 2012. FYI. Noaction needed. documented in this encounter Plan of Treatment Upcoming Encounters Date Type Specialty Care Team Description 06/08/2022 Appointment Neurology Parris Lucas MD [address] [facility] [address] [facility] [id number] (Wo rk) documented as of this encounter Visit Diagnoses Not on filedocumented in this encounter Care Teams Director Of Recruitment And Admissions Relationship Specialty Start Date End Date Unassigned, Provider PCP - General 03/13/00 03/16/14 [address] [place] [address] documented as of this encounter
--- OUTSIDE RECORDS SUMMARY | 2021-12-14 22:54 | XMS_ITS | Encounter Summary ---
:1955 Author Organization [facility] Address [address] [place] [address] Care Team Providers Name Role Phone Unassigned, Provider Primary Care Provider Unavailable Reason for Referral Specialty Diagnoses / Procedures Referred By Contact Refer red To Contact Parris Lucas MD [address] [facility] [address] [place], [place] [address] Referral ID Status Reason Start Date Expiration Date Visits Requ ested Visits Authorized Reason for Visit Reason Comments Balance/gait Dysfunction Encounter Details Date Type Department Care Team Description 06/03/2013 Initial Consult [facility] Shonda Babcock son's disease (Primary Dx); Therapy Betina Garrido PT Abnormality of gait; [address] nal history of fall [address] [place], [place] [id number] Social History Tobacco Use Types Packs/Day Years Used Date Smoking Tobacco: Never Assessed Sex Assigned at Date Recorded Not on file documented as of this encounter Progress Notes Betina Babcock, PT - 06/03/2013 5:26 PM CDT Visit Date: 06/03/2013 Patient : 1955 Physical Therapy Parkinson Evaluation/Plan of Care [facility] Initial Certification Period: 06/03/2013 to 09/01/13 Referring Provider: Dr. Parris Lucas Visit Diagnosis/ICD: Diagnosis (ICD9) ICD-9-CM 1. Parkinson's disease (HCC) 332.0 2. Abnormality of gait 781.2 3. Personal history of fall V15.88 Precautions: Fall precautions Onset/Referral Date: 05/31/13 Reason for Referral: -Outpatient PT. Orders: Evaluate and treat. [facility] Services: None. Exacerbation Date: 05/04/13 Last Referring MD Visit: 05/31/13 SUBJECTIVE Patient's Therapy Goal: To obtain recommendations regarding pursuit of a walker that would also act as a transport chair for longer distance ambulation. Current Comorbidities: None reported. Mobility Limitations Reported: Falling. Gait deficits. Transfers. Reduced activity tolerance. Balance/Falls in past 6 months: 2 falls - 1 time outside on ice and other time related to freezing and turning in the house Motor Fluctuations Reported: Yes. Dyskinesia Reported - United Parkinson's Disease Rating Scale (UPDRS): Yes. Pain: Reports discomfort in L leg - stiffness worse at night (alleviate = tylenol; exacerbation = cold) Past Medical History: Refer to Electronic Medical Records for past medical history, medications, andadverse drug reactions. Unremarkable per patient report. Assistive Devices: Using 2nd hand walker that she is borrowing from a friend. Support System: Lives with primary healthcare administrator () Living Situation: Private home, all on 1 level. Handicap accessible [facility] -Living Environment: Urban-mostly paved areas to ambulate. Driving: Restricted. Community Mobility: Only tolerates short distances. Frequency of Outings: Leaves home on a daily basis. Leisure Activities: Housework, visiting with friends Formal Exercises: Physical therapy home exercise program; delay the disease functional fitness DVD; access to treadmill at home Exercise Frequency: Sporadic Communication: Clear. Occupation: On disability OBJECTIVE Blood Pressure: Symptoms: Asymptomatic Behavioral Characteristics: Alert. Cooperative. Pleasant. Motor Function at Time of Eval: On - best level of functioning on medication. Tremor Observed: None. Rigidity: (UPDRS)-(Judged on passive movement of major joint with pt relaxed in lower extremity. Cogwheeling to be ignored.) 2 = Mild to moderate. Area(s) Affected: Axial. Left upper extremity. Left lower extremity. Right lower extremity. Body Bradykinesia and Hypokinesia: (UPDRS)(Combining slowness, hesitancy, decreased armswing, small amplitude and poverty of movement in general). 2 = Mild degree of slowness and poverty of movement which is definitely abnormal. Alternatively, some reduced amplitude. Dyskinesia (at time of evaluation): Minimally impacts function. Range of Motion: Grossly within normal limits. Muscle Strength: Core Trunk: minimal impaired (4/5 grossly). Left Lower Extremity: minimal impaired (4/5 grossly). Right Lower Extremity: minimal impaired (4/5 grossly). Transfers: Sit to Stand: Difficulty from low or soft surfaces. Stand to Sit: Safe and independent. Stand-Pivot: Safe and independent. Functional Testing: -Timed Up and Go Test (TUG): (Subject stands from arm chair, walks 3 meters (9 feet 10 inches), and sits back down in chair. Test is timed. Scores of young adults<10 seconds, older adults taking >=13.5 seconds classified as fallers with prediction rate of 90%, >30 second indicative of significant difficulties with ADL's) 03/23/12 - 8.56 seconds. 06/03/13 - 8.72 seconds. -30 Sec Sit Stands: ([place]: 13+ = low fall risk; 8-12 = medium fall risk, Below 8 = high fall risk). 03/23/12 - 12 times no arms 06/03/13 - 11 times no arms Gait: -Assistance required: Independent. -General Gait Description: Reduced arm swing, bilateral. Step hypokinesia, bilateral. Balance: Biomechanical Constraints: -Base of support: Narrow. -Center of Mass alignment: Abnormal anterior/posterior. Reactive Postural Response - In Place: -Forward: (Isometric push back from shoulders with quick release): Recovers stability with ankles, no added arm or hip motion. -Backward (Isometric push forward then scapulae with quick release): Takes a step to recover stability. Treatment Today: Physical Therapy Evaluation - 30 minutes Gait Training - 30 minutes - Education in strategies to avoid freezing during forward ambulation; pt instructed to stop, stand tall, take deep breath, shift weight or ???rock?? side to side to assist in unweighting or ???unlocking?? feet, and step long with sticky foot. Informed pt this is most likely to occur during approachto door frames or thresholds, during navigation of crowded environment, or in smaller spaces such asbathroom or closet. Advised to avoid fighting through freeze as this will increase risk for falling.Instructed to keep feet apart during small angle turns and perform lateral weight shift strategy to prevent freezing from occurring and to avoid crossing feet to avoid tripping. Provided handout to reinforce use of these strategies at home. - Long discussion held regarding pursuit of walker in light of insurance coverage - discussed Medicare competitive bid program with handout provided regarding vendors in the [facility]. Plan to call vendors more local for pt (lives in [place]) to determine most appropriate vendor to assist pt in pu rsuit of walker. Pt currently uses 4WW she received from family member for longer distance ambulation and occasionally requires rest breaks with need for sitting. Has considered pursuit of transport chair but would benefit most from 4WW model that would allow transport option - reviewed various options with patient online from various brands such as Drive. Discussed likelihood of choosing brand depending on what is carried at local vendor. Advised against use of current 4WW for transport purposes. Reviewed training for proper use of 4WW including training in proper fit for height. Provided pt with copy of written prescription but will plan to fax or mail original as needed when finalizing with vendor. ASSESSMENT Therapist Impression: Pt is a 57 year old female diagnosed with stage II Parkinson disease; referredby Dr. Lucas for evaluation and recommendations towards pursuit of an appropriate assistive device. Pt currently using 2nd hand walker from family during longer distance ambulation. [facility] and has since demonstrated decline in functional testing scores. Pt reports increased frequency of falls with 2 reported in last 6 months as well as worsened freezing. Has struggled recently with compliance to regular exercise but does report she plans to increase activity performance with nicer weather this spring/summer. Pt would benefit from pursuit of 4WW that has capacity to act as transport chair for longer distance ambulation due to motor fluctuations, freezing, and impaired activity tolerance. Plan to pursue various models from vendors closer to pt home town of [place] prior to providing final recommendation; pt in agreement with plan. Functional Limitation Reporting: Based on clinical observation, subjective reports, and functional outcome measures;, Current Status: Mobility - walking and moving around (G8978) - Impairment level 20-39% impaired (CJ modifier) Discharge Status: Mobility - walking and moving around (G8980) - Impairment level 20-39% impaired (CJ modifier) Goal Status: Mobility - walking and moving around (G8979) - Impairment level 20- 39% impaired (CJ modifier) Physical Therapy Practice Pattern: Primary prevention/risk reduction for loss of balance and falling. (5A) Impaired motor function, sensory integration associated with disorder central nervous system (5E). Impairments: Balance deficits. Bradykinesia. Dyskinesia. Gait pattern changes. Freezing of gait. Hypokinesia. Motor fluctuations. Muscle rigidity. Muscle weakness. Pain. Postural deviation. Functional Limitations: Transfers: Difficult. Gait instabiltiy. Falls risk. Mobility Restrictions: Limited community ambuation >1 block. Requires device for longer distances Possible Barriers to Goal Achievement: None apparent. Rehab Prognosis: Excellent PLAN Planned Treatment: None. One day visit. Interdisciplinary Referrals: None. Services Recommended: Community exercise class. Frequency/Duration: 1X visit Discharge Plan: Satisfactory goals are achieved. Estimated Discharge: No further visits planned at thei time; goals met today. Consent: Results of evaluation were reviewed with patient. Patient was receptive to treatment plan and participated in setting goals. Risks, benefits and alternatives to treatment were reviewed. Expected Functional Outcomes: all goals met during one time visit on 06/03/13 Patient/Carepartner to verbalize understanding of physical therapy recommendations including pursuitof 4WW from outside vendor in 1 visit. Patient/Carepartner to verbalize understanding of fall prevention strategies in 1 visit. Patient/Carepartner to verbalize understanding of appropriate cuing strategies to facilitate safe mobility in 1 visit. Total Treatment: 60 minutes The neck cutter is completed by the therapist and the referring clinician's electronic signature certifies medical necessity for the plan above. Completed by Betina Brambila PT License #[id number] documented in this encounter Plan of Treatment Upcoming Encounters Date Type Specialty Care Team Description 06/08/2022 Appointment Neurology Parris Lucas MD [address] [facility] [address] [place] [address] [address] (Wo rk) Scheduled Referrals Name Type Priority Associated Diagnoses [facility] Physical Therapy Referral Routine Parkinson's disease (HRC ) Ordered: 06/03/2013, Expires: 2013 documented as of this encounter Visit Diagnoses Diagnosis Parkinson's disease (HRC) - Primary Abnormality of gait Personal history of fall documented in this encounter Care Teams Machine Sole Leveler Relationship Specialty Start Date End Date Unassigned, Provider PCP - General 03/13/00 03/16/[address] [place] [id number] documented as of this encounter
--- OUTSIDE RECORDS SUMMARY | 2021-12-14 22:54 | XMS_ITS | Encounter Summary ---
:1955 Author Organization [facility] Address [address] [place] [address] Care Team Providers Name Role Phone Unassigned, Provider Primary Care Provider Unavailable Reason for Visit Reason Comments Medication Questions Encounter Details Date Type Department Care Team Description 10/09/2012 Telephone [facility] Chelsie Toribio perinatal coordinator Questions [address] [place], [place] [address] Social History Tobacco Use Types Packs/Day Years Used Date Smoking Tobacco: Never Assessed Sex Assigned at Date Recorded Not on file documented as of this encounter Nursing Notes Chelsie Toribio RN - 10/09/2012 5:13 PM CDT Spoke to Jessica. She verbalized back instruction to go to every 2 hour dosing, with the CR at night. She decline new RX at this time, as she is just picking up one. Will call to give us an update and then order then if 2 hour dosing agrees with her. Med list updated. Parris Lucas MD - 10/09/2012 2:51 PM CDT sure fine, whatever. Sorry, looks like I didn't quite finish my note before signing it. I think we were adding amantadine rather than increasing the sinemet, but if she feels that hasn't made enough ofa difference, then fine. We stopped the Azilect because she thought IT was making her dizzy, so she can't now complain that the lack of it is making her dizzy. So, fine, go from 6 to 8 doses of IR sinemet/day, at 6-4-79-12-2-4-6-8 and then CR at bedtime, with appropriate change in prescription. Chelsie Toribio RN - 10/09/2012 2:05 PM CDT Jessica called about two things: 1. Dizziness. She states that last night she felt very dizzy. This happens to her at times and she was wondering if it was a side effect of stopping azilect (which she stopped last Monday). Told her that is seemed unlikely she would get dizzy from stopping it since is was stopped last week. Told her carb/levo can lower blood pressure, which can make a person dizzy. Asked her to take BP when she feelsthis way to see if it drops. Encouraged her to push fluids and add some salt to her diet. 2. Wearing off. Jessica states she takes her carb/levo 25/100 2 tabs every 3 hours, but has wearing off after about 2 hours. She feels weak and her legs start to shake. This happens daily around 10am until early evening. States she feels fine during the night and when she wakes up. She is wondering if meds can be adjusted? Change to every 2 hours schedule? Add a few doses of CR during the day? PRN IR? Thoughts? Thanks. documented in this encounter Plan of Treatment Upcoming Encounters Date Type Specialty Care Team Description 06/08/2022 Appointment Neurology Parris Lucas MD [address] [facility] [address] [facility] N [id number] (Wo rk) documented as of this encounter Visit Diagnoses Not on filedocumented in this encounter Care Teams Focuser Relationship Specialty Start Date End Date Unassigned, Provider PCP - General 03/13/00 03/16/[address] [place] [id number] documented as of this encounter
--- OUTSIDE RECORDS SUMMARY | 2021-12-14 22:54 | XMS_ITS | Encounter Summary ---
:1955 Author Organization [email or web address] Address [address] [place] [address] Care Team Providers Name Role Phone Unassigned, Provider Primary Care Provider Unavailable Reason for Visit Reason Comments Medication Questions Encounter Details Date Type Department Care Team Description 08/22/2012 Telephone [place] [facility] Chelsie Toribio, water resources project manager Questions [address] [place], [place] [address] Social History Tobacco Use Types Packs/Day Years Used Date Smoking Tobacco: Never Assessed Sex Assigned at Date Recorded Not on file documented as of this encounter Nursing Notes Parris Lucas MD - 08/23/2012 5:09 PM CDT signed Chelsie Toribio RN - 08/22/2012 5:44 PM CDT Received fax from [facility] in [place] asking if Foltix 2/2.5 could be changed to foltx 1./2. Faxed back signed ok'd yes by Dr. Lucas. Please sign prescription for Foltx 1./2mg #90 with 2 refills. Thanks. documented in this encounter Plan of Treatment Upcoming Encounters Date Type Specialty Care Team Description 06/08/2022 Appointment Neurology Parris Lucas MD [address] [facility] [address] [facility] [id number] (Wo rk) documented as of this encounter Visit Diagnoses Not on filedocumented in this encounter Care Teams Java Web User Interface Developer Relationship Specialty Start Date End Date Unassigned, Provider PCP - General 03/13/00 03/16/[address] [place] [phone] documented as of this encounter
--- OUTSIDE RECORDS SUMMARY | 2021-12-14 22:54 | XMS_ITS | Encounter Summary ---
:1955 Author Organization [facility] Address [address] [place] [address] Care Team Providers Name Role Phone Unassigned, Provider Primary Care Provider Unavailable Reason for Visit Reason Comments Questions Symptoms Encounter Details Date Type Department Care Team Description 12/13/2013 Office Visit [facility] Parris Lucas MD Parkinson's disease [address] [place] [id number] (Wo rk) Social History Tobacco Use Types Packs/Day Years Used Date Smoking Tobacco: Never Assessed Sex Assigned at Date Recorded Not on file documented as of this encounter Last Filed Vital Signs Vital Sign Reading Time Taken Comments Blood Pressure 105/70 12/13/2013 10:14 AM CDT Pulse 75 12/13/2013 10:14 AM CDT Temperature - - Respiratory Rate - - Oxygen Saturation - - Inhaled Oxygen Concentration - - Weight 75.3 kg (166 lb) 12/13/2013 10:11 AM CDT Height - - Body Mass Index 25.24 01/17/2013 9:57 AM ESTATE CONSERVATOR documented in this encounter Patient Instructions Patient InstructionsParris Lucas MD - 12/13/2013 10:51 AM CDT come to the January DBS class consider counseling in your local area return in 3 months documented in this encounter Progress Notes Parris Lucas MD - 12/13/2013 12:52 PM CDT [facility] Follow-up Examination [facility] [address] [place] [address] , SUBJECTIVE: Chief Complaint Patient presents with ??? Questions What can I do to release stress? Symptoms stress with being home more- recent halfway- makes PD symptoms worse, freezing more Current concerns and update: returns for followup of Parkinson's disease. Her retired in March and is home more, not very supportive, which then makes her symptoms worse. She is taking sinemet 25/100 2 pills every 2 hours, 8 doses/day, and a CR at bedtime and sometimes prn. She rarely takes xanax, but it helps when shedoes. And she is taking amantadine 100mg twice a day. Past Medical History Update: No past medical history on file. Adverse Drug Reactions: Reviewed today and updated on Health Profile in [facility]. Allergies Allergen Reactions ??? Penicillins LW Reaction: Fever ??? Sulfa (Sulfonamide Antibiotics) rash Current Medications: Reviewed today and updated on Health Profile in [facility]. Current Outpatient Prescriptions on File Prior to Visit Medication Sig Dispense Refill ??? ALPRAZolam (XANAX) 0.25 mg tablet Take 1 tablet by mouth daily as needed for Anxiety. 20 tablet 5 ??? amantadine HCl (SYMMETREL) 100 mg capsule Take 1 capsule by mouth 2 times daily. 180 capsule 1 ??? calcium carbonate (TUMS EX) 300 mg (750 mg) chewable tablet Take 3 tablets by mouth daily (every24 hours). ??? carbidopa-levodopa (SINEMET CR) 50-200 mg per tablet Take 1 tablet by mouth See Admin Instructions. Take 1 tab at bedtime, plus 2 tabs/day extra as needed. 90 tablet 11 ??? carbidopa-levodopa (SINEMET) 25-100 mg per tablet Take 2 tablets by mouth every 2 hours. Take cu4-2-23-12-2-4-6-8, total of 16 tabs. 480 tablet 4 ??? cholecalciferol (VITAMIN D3) 1,000 [...] on file. Social History Update: she lives in a house with her Review of Systems: dry mouth, depression, anxiety, freezing, uses a walker, no falls, fluctuating function Falls since last visit? no falls, some near falls OBJECTIVE: Vital Signs: weight is 75.297 kg (166 lb). Her blood pressure is 105/70 and her pulse is 75. . Unified Parkinson's Disease Rating Scale (Part 2) Functional Score (maximum 52): 13 General: she is well dressed and groomed Neurologic exam: she is mildly dyskinetic cries off and on during the exam she walks well voice is a little hoarse but easily intelligible ASSESSMENT/PLAN: Parkinson's disease, exacerbated by a difficult home situation. She is at a point where DBS is a reasonable consideration, and maybe that is something that her could help her with. I also suggested that she get some counseling in her local area; I don't know who I would refer her to in that area. She needs resources to help her cope not only with her disease , but also his difficult response to her disease. I will see her back in 3 months. Total time: 25 min, 20 min discussion Send a copy of note to: Dr. Prakash Pérez, [address] [place] [address] Parris Lucas MD 10:28 AM 12/13/2013 documented in this encounter Plan of Treatment Upcoming Encounters Date Type Specialty Care Team Description 06/08/2022 Appointment Neurology Parris Lucas MD [address] [facility] [address] [place] [address] [address] [id number] (Wo rk) documented as of this encounter Visit Diagnoses Diagnosis Parkinson's disease (HRC) - Primary documented in this encounter Care Teams Machine Design Checker Relationship Specialty Start Date End Date Unassigned, Provider PCP - General 03/13/00 03/16/[address] [place] [id number] documented as of this encounter
--- OUTSIDE RECORDS SUMMARY | 2021-12-14 22:54 | XMS_ITS | Encounter Summary ---
:1955 Author Organization [facility] Address [address] [place] [address] Care Team Providers Name Role Phone Unassigned, Provider Primary Care Provider Unavailable Reason for Visit Reason Comments Phone Call Encounter Details Date Type Department Care Team Description 03/12/2012 Telephone [facility] Daniela Prakash, RN Phone Call [phone] [place], [place] [address] Social History Tobacco Use Types Packs/Day Years Used Date Smoking Tobacco: Never Assessed Sex Assigned at Date Recorded Not on file documented as of this encounter Nursing Notes Parris Lucas MD - 03/12/2012 2:15 PM CST I agree with the plan; script signed R CASHIER Daniela Prakash, RN - 03/12/2012 1:55 PM CST patient is just about out of the Neupro patch 4 mg/24 hr. Requests a prescription to be sent to the pharmacy. Prior authorization approval received from her insurance. Neupro 4 mg patch 24/hr sent to pharmacy. #30 Refill x 11. Follow up appointment 03/23/2012. documented in this encounter Plan of Treatment Upcoming Encounters Date Type Specialty Care Team Description 06/08/2022 Appointment Neurology Parris Lucas MD [address] [facility] [address] [facility] [id number] (Wo rk) documented as of this encounter Visit Diagnoses Not on filedocumented in this encounter Care Teams Contracting Executive Relationship Specialty Start Date End Date Unassigned, Provider PCP - General 03/13/00 03/16/[address] [place] [id number] documented as of this encounter
--- OUTSIDE RECORDS SUMMARY | 2021-12-14 22:54 | XMS_ITS | Encounter Summary ---
:1955 Author Organization [email or web address] Address [address] [place] [address] Care Team Providers Name Role Phone Unassigned, Provider Primary Care Provider Unavailable Reason for Visit Reason Comments Medication Questions Encounter Details Date Type Department Care Team Description 12/04/2012 Telephone [facility] Chelsie Toribio barbering teacher Questions [address] [place], [place] [address] Social History Tobacco Use Types Packs/Day Years Used Date Smoking Tobacco: Never Assessed Sex Assigned at Date Recorded Not on file documented as of this encounter Nursing Notes Chelsie Toribio RN - 12/07/2012 9:36 AM CDT Called Jessica and told her Rx was signed. Parris Lucas MD - 12/07/2012 6:40 AM CDT script signed Fior Daniel RN - 12/06/2012 9:33 AM CDT Patient called again about prescription. I explained we were awaiting approval as the directions andquantity are different than in record. Told her it should be done by tomorrow. She would like a callto notify her when done. Chelsie Toribio RN - 12/04/2012 4:38 PM CDT Spoke with Jessica. She states she take Carb/Levo CR 50/200 usually one tab at HS then if she wakes up at night takes another, and then again if she wakes again. So, sometimes 3 tabs per night. She states this works well for her and is requesting new Rx to be sent to pharmacy. Thougths? If in agreement please sign pended order. Chelsie Toribio RN - 12/04/2012 2:33 PM CDT Jessica called and LM asking how she should be taking her 50/200. On bottle it states once daily, but she has been taking 0-3 tabs daily.. Called her back and LM asking her when a good time to reach her would be. documented in this encounter Plan of Treatment Upcoming Encounters Date Type Specialty Care Team Description 06/08/2022 Appointment Neurology Parris Lucas MD [address] [facility] [address] [facility] [address] (Wo rk) documented as of this encounter Visit Diagnoses Not on filedocumented in this encounter Care Teams Sanipractic Physician Relationship Specialty Start Date End Date Unassigned, Provider PCP - General 03/13/00 03/16/[address] [place] [address] documented as of this encounter
--- OUTSIDE RECORDS SUMMARY | 2021-12-14 22:54 | XMS_ITS | Encounter Summary ---
:1955 Author Organization [facility] Address [address], [place] [address] Care Team Providers Name Role Phone Prakash Pérez MD Primary Care Provider Reason for Visit Reason Comments WALKING, DIFFICULTY Balance/gait Dysfunction Refill Encounter Details Date Type Department Care Team Description 08/12/2014 Office Visit [facility] Parris Lucas MD Parkinson's disease [facility] [address] Spot On NetworksPatricia demi [facility] [address] [place] [phone] (Wo rk) Social History Tobacco Use Types Packs/Day Years Used Date Smoking Tobacco: Never Assessed Sex Assigned at Date Recorded Not on file documented as of this encounter Last Filed Vital Signs Vital Sign Reading Time Taken Comments Blood Pressure 105/72 08/12/2014 9:27 AM CDT Pulse 78 08/12/2014 9:27 AM CDT Temperature - - Respiratory Rate - - Oxygen Saturation - - Inhaled Oxygen Concentration - - Weight 76.7 kg (169 lb) 08/12/2014 9:25 AM CDT Height - - Body Mass Index 25.7 01/17/2013 9:57 AM TILT TRAY DRIVER documented in this encounter Patient Instructions Patient InstructionsParris Lucas MD - 08/12/2014 9:50 AM CDT Please call the [facility] nurse line for any questions, concerns or updates, . start Rytary 150m capsules 4 times a day--at breakfast, lunch, dinner, bedtime OK to take an extra yellow sinemet pill if you need to in between continue amantadine while we try the Rytary return in 3 months PT in [place] documented in this encounter Progress Notes Parris Lucas MD - 08/12/2014 10:02 AM CDT [facility] Follow-up Examination [facility] [address] [place] [address] , SUBJECTIVE: Chief Complaint Patient presents with ??? Difficulty Walking In november going to do the [place] [facility] [place] program ??? Balance/gait Dysfunction fear of falling ??? Medication Refill orders pended Current concerns and update: returns for followup of Parkinson's disease. She is having more freezing of gait, wants to see a local PT in [place] for the [place] and [place]. SHe is not using an assistive device, but will sometimes have abrupt freezing, particularly if she is startled or anxious. Past Medical History Update: No past medical history on file. Adverse Drug Reactions: Reviewed today and updated on Health Profile in [facility]. Allergies Allergen Reactions ??? Penicillins LW Reaction: Fever ??? Sulfa (Sulfonamide Antibiotics) rash Current Medications: Reviewed today and updated on Health Profile in [facility]. Current Outpatient Prescriptions on File Prior [...] tablets by mouth every 2 hours. Take [id number], total of 16 tabs. 1440 tablet 2 [...] history on file. Social History Update: no change since last visit Review of Systems: mood seems a little better, and she is sleeping OK Falls since last visit? near falls, no actual falls OBJECTIVE: Vital Signs: (includes sitting and standing blood pressure) Filed Vitals: 08/12/14 0925 08/12/14 0927 BP: 120/80 105/72 Pulse: 75 78 Weight: 76.658 kg (169 lb) Unified Parkinson's Disease Rating Scale (Part 2) Functional Score (maximum 52): 12 General: she is well dressed and appears generally healthy Neurologic exam: mood seems a little better than the last time I saw her she had mild L shoulder shrugging dyskinesia she chaparro from the chair easily and walked well, with a mildly forward-leaning posture, but no freezing or festinating the R foot circumducts a little as she walks, and she has some toe dystonia, can't walk on tiptoes because her toes tend to curl/grab as she walks finger and hand movements were done well, a little smaller on the R than the L ASSESSMENT/PLAN: Stage 2 Parkinson's disease, with motor fluctuation and both predictable and unpredictable wearing off. I will give her a trial of Rytary, see whether that can get her away from the 2 hour levodopa schedule she is currently on. I will give her 600mg of Rytary 4 times a day, which will likely undershoot from her current levodopa dose of 1600mg IR and 600mg CR/day. SHe has permission to take an extra IR sinemet pill if she needs to during the trial. No change in amantadine or Mirtazapine. Return in 3 months. I wrote for her to see PT in [place] for the [facility] and Loud program. Total time: 25 min, 20 min discussion Send a copy of note to: Dr. Prakash Pérez, [facility], [address] [place] [phone] Parris Lucas MD 9:32 AM 08/12/2014 documented in this encounter Plan of Treatment Upcoming Encounters Date Type Specialty Care Team Description 06/08/2022 Appointment Neurology Parris Lucas MD [address] [facility] [address] [facility] [place] N [address] (Wo rk) documented as of this encounter Visit Diagnoses Diagnosis Parkinson's disease (HRC) - Primary documented in this encounter Care Teams Artificial Breast Fabricator Relationship Specialty Start Date End Date Prakash Pérez MD PCP - General 03/17/14 08/20/18 [address] [place] [address] documented as of this encounter
--- OUTSIDE RECORDS SUMMARY | 2021-12-14 22:54 | XMS_ITS | Encounter Summary ---
:1955 Author Organization [email or web address] Address [address] [place] [address] Care Team Providers Name Role Phone Prakash Pérez MD Primary Care Provider Encounter Details Date Type Department Care Team Description 10/24/2014 Notes/Orders Carter Dixon MD Pain in joint, lower Orthopedics [address] [facility] leg, right (Primary [address] [place], [place]x) [place] [address] [phone] (Wo rk) Social History Tobacco Use Types Packs/Day Years Used Date Smoking Tobacco: Never Assessed Sex Assigned at Date Recorded Not on file documented as of this encounter Plan of Treatment Upcoming Encounters Date Type Specialty Care Team Description 06/08/2022 Appointment Neurology Parris Lucas MD [address] [facility] [address] [facility] N [id number] (Wo rk) documented as of this encounter Visit Diagnoses Diagnosis Pain in joint, lower leg, right - Primar y documented in this encounter Care Teams Farm Owner Operator Relationship Specialty Start Date End Date Prakash Pérez MD PCP - General 03/17/14 08/20/18 [address] [place] [address] documented as of this encounter
--- OUTSIDE RECORDS SUMMARY | 2021-12-14 22:54 | XMS_ITS | Encounter Summary ---
:1955 Author Organization [facility] Address [address] [place] [address] Care Team Providers Name Role Phone Unassigned, Provider Primary Care Provider Unavailable Reason for Visit Reason Comments Refill Encounter Details Date Type Department Care Team Description 12/09/2013 Telephone [facility] Chelsie Toribio, RN Refill [address] [place], [place] [address] Social History Tobacco Use Types Packs/Day Years Used Date Smoking Tobacco: Never Assessed Sex Assigned at Date Recorded Not on file documented as of this encounter Nursing Notes Chelsie Toribio RN - 12/09/2013 11:46 AM CDT Jessica called asking for a refill of carb/levo 25/100. Rx is getting low, and she will not have enough med before her next appointment with Dr. Lucas on 12/13/13. Renewed medication per medication refill protocol. Called and LM with . He will let her know Rx was sent. documented in this encounter Plan of Treatment Upcoming Encounters Date Type Specialty Care Team Description 06/08/2022 Appointment Neurology Parris Lucas MD [address] [facility] [address] [facility] N [address] (Wo rk) documented as of this encounter Visit Diagnoses Not on filedocumented in this encounter Care Teams Air Tester Relationship Specialty Start Date End Date Unassigned, Provider PCP - General 03/13/00 03/16/14 [address] [place] [address] documented as of this encounter
--- OUTSIDE RECORDS SUMMARY | 2021-12-14 22:54 | XMS_ITS | Encounter Summary ---
:1955 Author Organization [facility] Address [address] [place] [address] Care Team Providers Name Role Phone Unassigned, Provider Primary Care Provider Unavailable Reason for Visit Reason Comments MEDICATION CHECK Encounter Details Date Type Department Care Team Description 06/29/2012 Office Visit [facility] Parris Lucas MD Parkinson's disease [facility] [place] ) (Primary Dx) Drive [address] [place] [phone] (Wo rk) Social History Tobacco Use Types Packs/Day Years Used Date Smoking Tobacco: Never Assessed Sex Assigned at Date Recorded Not on file documented as of this encounter Last Filed Vital Signs Vital Sign Reading Time Taken Comments Blood Pressure 102/76 06/29/2012 11:39 AM CDT Pulse 72 06/29/2012 11:39 AM CDT Temperature - - Respiratory Rate - - Oxygen Saturation - - Inhaled Oxygen Concentration - - Weight 68.6 kg (151 lb 3.2 oz) 06/29/2012 11:37 AM CDT Height - - Body Mass Index 22.33 02/07/2012 8:49 AM JACK TAMP OPERATOR documented in this encounter Patient Instructions Patient InstructionsParris Lucas MD - 06/29/2012 12:03 PM CDT 1. trial of rasagiline (Azilect) 1mg in the morning 2. call in a month 3. return in 4 months documented in this encounter Progress Notes Parris Lucas MD - 06/29/2012 12:10 PM CDT [facility] Follow-up Examination [facility] [address] [place] [phone] , SUBJECTIVE: Chief Complaint Patient presents with ??? Medication Check Current concerns and update: returns for followup of Parkinson's disease. She is now on a 3 hour sinemet schedule, a combinationof IR and CR pills, as recorded in the medication list. She takes amantadine 100mg bid. She does pretty well most of the time, but still runs out if she is active. She did not feel at all good on rotigotine, but is interested in trying azilect. She brought her along today. Past Medical History Update: No past medical history on file. Adverse Drug Reactions: Allergies Allergen Reactions ??? Penicillins LW Reaction: Fever Current Medications: Reviewed today and updated on Health Profile in [facility]. Current Outpatient Prescriptions on File Prior to Visit Medication Sig Note Dispense Refill ??? amantadine (SYMMETREL) 100 mg capsule Take 200 mg by mouth daily (every 24 hours). 2 tabs qd ??? calcium carbonate (TUMS EX) 300 mg (750 mg) chewable tablet Take 3 tablets by mouth daily (every24 hours). ??? carbidopa-levodopa (SINEMET CR) 50-200 mg per tablet Take 1 tablet by mouth daily as needed. Takes PRN depending on the day ??? carbidopa-levodopa (SINEMET) 25-100 mg per tablet Take 1 tablet by mouth 5 times daily. 1 in am and 1 up to qid prn 06/29/2012: currently taking up to 8 tabs per day 2 tabs approximately q 3 hours beginning at 6am. 720 tablet 4 ??? cholecalciferol (VITAMIN D3) 1,000 unit Tab Take 1,000 Units by mouth daily (every 24 hours). ??? docusate sodium (COLACE) 100 mg capsule Take 1 capsule by mouth daily (every 24 hours). LW Addl Instr:Indicated for: Stool Softener 180 3 ??? folic acid-vit B6-vit B12 (FOLTX) 2.5-25-2 mg tablet Take 1 tablet by mouth daily (every 24 hours). 90 tablet 3 ??? mirtazapine (REMERON) 15 mg tablet [...] ounces of fluid and drink. 255 12 No current facility-administered medications on file prior to visit. Family History Update: No family history on file. Social History Update: no new issues Review of Systems: constipation, bladder urgency, some anxiety Falls since last visit? none, no device OBJECTIVE: Vital Signs: weight is 68.584 kg (151 lb 3.2 oz). Her blood pressure is 102/76 and her pulse is 72. . Unified Parkinson's Disease Rating Scale (Part 2) Functional Score (maximum 52): 11 General: she is well dressed and articulate voice is quite but easily intelligible Neurologic exam: a little bit of resting tremor in the L hand from time to time rises easily , walks well, reduced arm swing on the L and stiffness in the L leg ASSESSMENT/PLAN: Stage 1.5 Parkinson's disease, with some mild wearing off with activity. I will write for ltyuvuxffc5md/day in addition to the sinemet and amantadine. I reviewed with her how the medication works, what wearing off and dyskinesia are. He is not always as supportive as she wishes he would be.I don't know if my discussion was helpful. Return in 4 months, but call in 1 month with results of azilect trial. Total time: 15 min, 10 min discussion Send a copy of note to: Dr. Prakash Pérez, [address] [place] [address] Parris Lucas MD 11:45 AM 06/29/2012 documented in this encounter Plan of Treatment Upcoming Encounters Date Type Specialty Care Team Description 06/08/2022 Appointment Neurology Parris Lucas MD [address] [facility] [address] [place] [address], [place] [address] [address] (Wo rk) documented as of this encounter Visit Diagnoses Diagnosis Parkinson's disease (HRC) - Primary documented in this encounter Care Teams Out Of Town Collection Clerk Relationship Specialty Start Date End Date Unassigned, Provider PCP - General 03/13/00 03/16/[address] [place] [address] documented as of this encounter
--- OUTSIDE RECORDS SUMMARY | 2021-12-14 22:54 | XMS_ITS | Encounter Summary ---
:1955 Author Organization [employer] Address [address] [place] [address] Care Team Providers Name Role Phone Unassigned, Provider Primary Care Provider Unavailable Reason for Visit Reason Comments Phone Call Encounter Details Date Type Department Care Team Description 02/03/2012 Telephone [facility] Chelsie Toribio RN Phone Call [email or web address] [place], [place] [address] Social History Tobacco Use Types Packs/Day Years Used Date Smoking Tobacco: Never Assessed Sex Assigned at Date Recorded Not on file documented as of this encounter Nursing Notes Parris Lucas MD - 02/06/2012 5:00 PM CST ok, thanks S COMMUNICATIONS MANAGER Tiera Kaur RN - 02/06/2012 4:02 PM CST Clinic appointment tomorrow. Rosina and her sister feel Darlene is depressed, she does not laugh or seem to enjoy life. She feels that neither she nor her father have really accepted PD and do not talk about it honestly. Rosina also sees Darlene slowing down, as if meds not working as well. On several occasions she has had freezing of gait, getting stuck in the middle of walking. Medical record shows PT this year in Apr and May. Rosina is not sure if the neupro patch has been started yet. We discussed her or her sister coming to an appointment some time. Rosina reflects that her mom has invited her in the past to attend. She is unable to attend tomorrow, but wanted us to have the information. S COMMUNICATIONS MANAGER Chelsie Toribio, RN - 02/03/2012 4:59 PM CST Darlene's daugher, Rosina called and LM stating she wanted to talk with Dr. Lucas before appt next week. Called and LM asking Rosina to give us a call to discuss. documented in this encounter Plan of Treatment Upcoming Encounters Date Type Specialty Care Team Description 06/08/2022 Appointment Neurology Parris Lucas MD [address] [facility] [address] [facility] [id number] (Wo rk) documented as of this encounter Visit Diagnoses Not on filedocumented in this encounter Care Teams Maintainer Operator Relationship Specialty Start Date End Date Unassigned, Provider PCP - General 03/13/00 03/16/[address] [place] [address] documented as of this encounter
--- OUTSIDE RECORDS SUMMARY | 2021-12-14 22:54 | XMS_ITS | Encounter Summary ---
:1955 Author Organization [facility] Address [address] [place] [address] Care Team Providers Name Role Phone Unassigned, Provider Primary Care Provider Unavailable Reason for Visit Reason Comments Refill Encounter Details Date Type Department Care Team Description 07/16/2012 Refill [phone] Neurology Jessika Hilario RN Refill [address] [place], [place] [address] Social History Tobacco Use Types Packs/Day Years Used Date Smoking Tobacco: Never Assessed Sex Assigned at Date Recorded Not on file documented as of this encounter Plan of Treatment Upcoming Encounters Date Type Specialty Care Team Description 06/08/2022 Appointment Neurology Parris Lucas MD [address] [facility] [address] [facility] N [address] (Wo rk) documented as of this encounter Visit Diagnoses Not on filedocumented in this encounter Care Teams Paraprofessional Aide Relationship Specialty Start Date End Date Unassigned, Provider PCP - General 03/13/00 03/16/[address] [place] [phone] documented as of this encounter
--- OUTSIDE RECORDS SUMMARY | 2021-12-14 22:54 | XMS_ITS | Encounter Summary ---
:1955 Author Organization [facility] Address [address] [place] [address] Care Team Providers Name Role Phone Unassigned, Provider Primary Care Provider Unavailable Reason for Visit Reason Comments Follow-up Medication Questions DEPRESSION WEIGHT LOSS Encounter Details Date Type Department Care Team Description 03/23/2012 Office Visit [place] [facility] Parris Lucas MD Parkinson's disease [address] [place] [address] ) (Primary Dx) [address] [place] [phone] (Wo rk) Social History Tobacco Use Types Packs/Day Years Used Date Smoking Tobacco: Never Assessed Sex Assigned at Date Recorded Not on file documented as of this encounter Last Filed Vital Signs Vital Sign Reading Time Taken Comments Blood Pressure 98/62 03/23/2012 10:18 AM OVEN LABORER Pulse 72 03/23/2012 10:18 AM OVEN LABORER Temperature - - Respiratory Rate - - Oxygen Saturation - - Inhaled Oxygen Concentration - - Weight 64.8 kg (142 lb 12.8 oz) 03/23/2012 10:14 AM OVEN LABORER Height - - Body Mass Index 21.09 02/07/2012 8:49 AM OVEN LABORER documented in this encounter Patient Instructions Patient InstructionsParris Lucas MD - 03/23/2012 10:42 AM CST 1. stop Neupro 2. start mirtazapine (remeron) 15mg at bedtime for sleep and mood 3. take an IR sinemet 25/100 up to eight times a day as needed 4. return in 3 months with your ! I want to meet him! LABORER documented in this encounter Progress Notes Parris Lucas MD - 03/23/2012 11:13 AM CST [facility] ANNUAL Follow-up Examination [facility] [place] [address] SUBJECTIVE: Chief Complaint Patient presents with ??? Follow-up ??? Medication Question Neupro- not sure if working the way it's supposed to. Eats and feels like throwing up, feels like she had hangover. ??? Depression Needs something? Weight Loss Lost 8-9 lbs since last visit. Update and other concerns: returns for followup. Neupro hasn't done anything for her, and some of her weight loss and nausea seem to have started or escalated since the Neupro was started. She is also noticing depression, sits and cries. Past Medical History Update: no specific issues Adverse Drug Reactions: Pt's Adverse Drug Reactions were reviewed today, and updated on the Health Profile of [facility]. Current Medications: Reviewed today and updated on Health Profile in [facility]. Current outpatient prescriptions ordered prior to encounter Medication Sig Dispense Refill ??? amantadine (SYMMETREL) 100 mg capsule Take 100 mg by mouth daily (every 24 hours). ??? calcium carbonate (TUMS EX) 300 mg (750 mg) chewable tablet Take 3 tablets by mouth daily (every24 hours). ??? DISCONTD: carbidopa-levodopa (SINEMET CR) 25-100 mg per tablet Take 2 tablets by mouth every 4 hours. 6 doses per day around the clock. 1080 tablet 3 ??? DISCONTD: carbidopa-levodopa (SINEMET CR) 50-200 mg per tablet [...] and drink. 255 12 ??? rotigotine (NEUPRO) 4 mg/[address] 1 patch onto the skin daily (every 24 hours). 30 patch 11 ??? DISCONTD: rotigotine (NEUPRO) 4 mg/[address] 1 patch onto the skin daily (every 24 hours). exp: 07/06/2013 lot: [id number] 7 patch 0 Family History Update: No new information to report Social History Update: lives in house with her work status: on disability financial analysis advisor: no concerns driving status: no concerns Advance directive: has one in place family involvement: comes alone, we discussed this today; is modestly supportive alcohol/tobacco: none exercise: yes safety concerns: none other: none Review of Systems: cognitive: no concerns autonomic: constipation is manageable psychiatric: (PQRS measure #290) depression is intensifying, sits and cries sometimes sleep: (PQRS measure #292) no major sleep issues falls/assistive device: has a walker and walking poles dyskinesia/wearing off: she has predictable offs and mild dyskinesia skin: not discussed weight/nutrition: this is a concern--nausea after eating other: none OBJECTIVE: Vital Signs: BP 98/62 Pulse 72 Wt 64.774 kg (142 lb 12.8 oz) Unified Parkinson's Disease Rating Scale (Part 2) Functional Score (maximum 52): 14 General: well-dressed and groomed Neurologic exam: cognitive assessment (PQRS measure #291): The mental status was normal in all spheres: attention, concentration, memory, fund of knowledge, and language. mild L hand tremor and L leg stiffness when she walks mild R dyskinesia voice is normal ASSESSMENT: (review of diagnosis and discussion of any atypical features; PQRS measure #289) Stage 2 Parkinson's disease, complicated by weight loss and depression. She is requiring a lot of sinemet, and did not seem to benefit from Neupro. I will stop the neupro and give her permission to take up to 8 IR pills along with her 9-10 CR pills (she is currently taking up to 5). She will continue 1-2 amantadine/day. I will start her on Remeron 15mg for depression; her primary care could increase that to 30mg if needed in a few weeks. I suggested that she also follow up with primary care to make sure there isn't a GI problem leading to early satiety and nausea and weight loss. Return in 3 months; I would like her to come with her, as I think he may not fully understand the impact and nature of PD on her daily life. PLAN: medical and surgical treatment options: (PQRS measure #294) see above rehabilitation options: (PQRS measure #293) saw PT today participation in research: not today safety concerns counseling: none return in 3 months Total time: 25 minutes, Counseling time: 20 minutes about issues described in Assessment and Plan Send copy to: Dr. Prakash Pérez, [address] [place] [address] Parris Lucas MD 10:29 AM 03/23/2012 *Note: underlined items are the 10 items included in the 2011 [place] [employer] Parkinson's Disease Practice Parameters for the annual examination of a person with Parkinson's disease documented in this encounter Plan of Treatment Upcoming Encounters Date Type Specialty Care Team Description 06/08/2022 Appointment Neurology Parris Lucas MD [address] [facility] [address] [facility] [id number] (Wo rk) documented as of this encounter Visit Diagnoses Diagnosis Parkinson's disease ([facility]) - Primary documented in this encounter Care Teams Director Life Sales Relationship Specialty Start Date End Date Unassigned, Provider PCP - General 03/13/00 03/16/14 [address] [place] [address] documented as of this encounter
--- OUTSIDE RECORDS SUMMARY | 2021-12-14 22:54 | XMS_ITS | Encounter Summary ---
:1955 Author Organization [facility] Address [address] [place] [address] Care Team Providers Name Role Phone Unassigned, Provider Primary Care Provider Unavailable Reason for Visit Reason Comments Refill Encounter Details Date Type Department Care Team Description 03/07/2014 Telephone [place] [facility] Ban Hunt RN Refill [address] [place], [place] [address] Social History Tobacco Use Types Packs/Day Years Used Date Smoking Tobacco: Never Assessed Sex Assigned at Date Recorded Not on file documented as of this encounter Progress Notes Perfecto Kaur RN - 03/10/2014 2:59 PM JOB TRACER Addended by: PERFECTO KAUR on: 03/10/2014 02:59 PM Modules accepted: Orders documented in this encounter Nursing Notes Fior Daniel RN - 03/11/2014 9:21 AM CST Faxed to [facility] in [place]. Parris Lucas MD - 03/10/2014 4:24 PM CST prescription should be sitting on your printer to be signed; if you put it in my box, I can probablyswing by [place] on my way to work tomorrow and sign it and whatever other papers might have accumulated in the box. Fior Daniel RN - 03/10/2014 4:14 PM CST Patient called again, I told her that we have sent Dr. Lucas a note requesting she call this prescription in to [facility] in [place], explained she is not here at this office. Explained that when people use 2-3 different pharmacies they can get sent sometimes to the wrong one. Asked her to be patient until tomorrow. Please notify us when completed. Perfecto Kapoor RN - 03/10/2014 2:59 PM CST Note, last prescription, written 12/2013 was faxed to [facility]. Needs to be signed and faxed or calledin to [facility]. Thanks. Perfecto Kapoor RN - 03/10/2014 2:56 PM CST Darlene calling requesting new xanax prescription sent to [facility] in [place]. New pharmacy changed for orders. Can you please write, print and sign a new prescription for xanax for Darlene and [facility]? Let me know if unable. thanks. Perfecto Kapoor RN - 03/10/2014 2:49 PM CST Darlene calling, left message stating [facility] does not have a prescription for xanax, wondeing if we can send it to [facility] in [place]. Call to [facility] pharmacy. They have no prescription for xanax on file for Darlene. Ban Park RN - 03/10/2014 11:23 AM CST I spoke with Darlene and she will call [facility] and will call us back if she needs us to write a new rx for the xanax TRACER Ban Hunt RN - 03/07/2014 1:14 PM CST We received a fax from [facility] pharmacy in [place] requesting a refill on alprazolam. I see Dr Lucas gave her a 6 month supply at her last visit 12/13/2013 and it was sent to [facility] in [place]. Icalled her and left a message asking her to have her new pharmacy call [facility] requesting the prescrip tion be transferred. TRACER documented in this encounter Plan of Treatment Upcoming Encounters Date Type Specialty Care Team Description 06/08/2022 Appointment Neurology Parris Lucas MD [address] [facility] [address] [facility] [address] (Wo rk) documented as of this encounter Visit Diagnoses Not on filedocumented in this encounter Care Teams Application Technician Relationship Specialty Start Date End Date Unassigned, Provider PCP - General 03/13/00 03/16/[address] [place] [address] documented as of this encounter
--- OUTSIDE RECORDS SUMMARY | 2021-12-14 22:54 | XMS_ITS | Encounter Summary ---
:1955 Author Organization [facility] Address [address] [place] [address] Care Team Providers Name Role Phone Prakash Pérez MD Primary Care Provider Reason for Visit Reason Comments Knee Pain or Injury Encounter Details Date Type Department Care Team Description 10/24/2014 Surgical Consult Carter Dixon, Primary osteoarthritis Orthopedics MD of right knee (Primary [address] [address] [address] [place] [address] [phone] Social History Tobacco Use Types Packs/Day Years Used Date Smoking Tobacco: Never Assessed Sex Assigned at Date Recorded Not on file documented as of this encounter Progress Notes Carter Alicea MD - 10/24/2014 12:51 PM CDT Chief complaint: 1. Right knee pain History of Present Illness: Darlene Drew is a 59 y.o. female self-referred for evaluation and treatment of right knee pain. The pain began 1 year ago. She attributes the pain to multiple falls she has sustained over the years as a result of her Parkinson's disease. The pain is located mainly on the medial, anterior aspect of the knee. She describes the symptoms as aching. Symptoms improve with rest. Symptoms worsen with activity, stair climbing, deep knee bending and start up. The knee has not given out or felt unstable. No mechanical symptoms. Does note swelling. Treatment to date has been none. Past Medical History, Past Surgical History, Medications, Allergies, Social History, Family History,and Review of Systems: Reviewed in [facility] and on today's patient health history intake form, confirmedwith the patient, and then submitted to [facility][note 3]. Physical Exam: Vitals: per [facility] and reviewed by me today General: Well appearing, appears stated age. Alert and oriented x 3 with an appropriate mood and affect. Does exhibit rolling pill tremor. Neurologic: Sensation to light touch is intact in bilateral lower extremities L2-S1. Grade 5 strength in the iliopsoas, quad, hamstring, tib ant, EHL and gastroc-soleus. 2+ symmetric patellar and Achilles reflexes. Vascular: feet are warm and well perfused with normal cap refill bilateral lower extremities Skin : No induration, lesions, or erythema. Lymph: No lymphadenopathy Lumbar spine: non-tender to palpation with full painless ROM in flexion, extension and lateral bend. Hips: full painless ROM bilaterally. Gait: stands in neutral alignment and walks with a non-antalgic gait. left knee: Nontender to palpation Range of motion: 0-135 Effusion: None Patellofemoral Crepitation: None Stable to varus and valgus stress in at 0 and 30 degrees. Negative Li Negative anterior drawer Negative posterior drawer Luma's test is Negative. right knee: Maximally tender: Medial joint line < pes bursa Range of motion: 0-130 Effusion: trace Patellofemoral Crepitation: Yes Stable to varus and valgus stress in at 0 and 30 degrees. Negative Li Negative anterior drawer Negative posterior drawer Luma's test is Negative. Imaging: Bilateral standing AP, PA, sunrise and lateral Plain radiographs of the right knee are ordered and independently reviewed by me today. There is joint space narrowing with sclerosis and osteophyte formation. Most notable in the medial compartment. Kellgren-Garret grade 2. Impression: 1. Right knee osteoarthritis 2. Pes bursitis Plan: We discussed the diagnosis, prognosis and treatment options with the patient. All questions were answered. Plan will be for: Physical therapy program for stretching, strengthening and modalities as indicated. Pt declined and will do home PT. NSAIDs -unable to take due to her other medications. Topical compound offered but pt declined. Cortisone injections vs. viscosupplementation have been discussed and offered. This was declined. Follow up in 6-12 weeks as needed or earlier as symptoms dictate. documented in this encounter Plan of Treatment Upcoming Encounters Date Type Specialty Care Team Description 06/08/2022 Appointment Neurology Parris Lucas MD [address] [facility] [address] [place] [address] (Wo rk) documented as of this encounter Visit Diagnoses Diagnosis Primary osteoarthritis of right knee - P rimary Primary localized osteoarthrosis, lower leg documented in this encounter Care Teams Other Sales Support Worker Relationship Specialty Start Date End Date Prakash Pérez MD PCP - General 03/17/14 08/20/[address] [place] [address] documented as of this encounter
--- OUTSIDE RECORDS SUMMARY | 2021-12-14 22:54 | XMS_ITS | Encounter Summary ---
:1955 Author Organization [email or web address] Address [address] [place] [address] Care Team Providers Name Role Phone Prakash Pérez MD Primary Care Provider Reason for Visit Reason Comments Prior Authorization Request Encounter Details Date Type Department Care Team Description 09/02/2014 Telephone [facility] [facility] Chelsie Lopez, Prior Authorization [address] [place], [place] [address] Social History Tobacco Use Types Packs/Day Years Used Date Smoking Tobacco: Never Assessed Sex Assigned at Date Recorded Not on file documented as of this encounter Progress Notes Chelsie Lopez RN - 09/02/2014 5:27 PM CDT Addended by: CHELSIE LOPEZ on: 09/02/2014 05:27 PM Modules accepted: Orders, Medications documented in this encounter Nursing Notes Parris Lucas MD - 09/03/2014 6:32 AM CDT ok Chelsie Lopez RN - 09/02/2014 5:25 PM CDT Jessica called back and the copay for 3 months of Rytary would be $1500 and that is too expensive for Jessica. She prefers to go back to her old dosing of carb/levo 25/100 every 2 hours. Told her about thepatient assistance program and will mail her the information, but as of now she prefers to go back to her old dosing. Ban Hunt RN - 09/02/2014 4:03 PM CDT Spoke with Darlene and let her know we did put samples in the mail on Monday. Also, told her that the PA was approved for Rytary 06/04/2014 to 09/02/2015. Chelsie Lopez RN - 09/02/2014 1:24 PM CDT Faxed completed PA to [facility]. Will await response. Chelsie Lopez RN - 09/02/2014 12:51 PM CDT Received fax from [employer] stating PA was needed for Rytary 36.25/145mg. Called insurance (PH: [phone], pt ID: [id number]) and they will fax over PA. documented in this encounter Plan of Treatment Upcoming Encounters Date Type Specialty Care Team Description 06/08/2022 Appointment Neurology Parris Lucas MD [address] [facility] [address] [facility] [address] [address] (Wo rk) documented as of this encounter Visit Diagnoses Not on filedocumented in this encounter Care Teams Disability Liaison Officer Relationship Specialty Start Date End Date Prakash Pérez MD PCP - General 03/17/14 08/20/[address] [place] [address] documented as of this encounter
--- OUTSIDE RECORDS SUMMARY | 2021-12-14 22:54 | XMS_ITS | Encounter Summary ---
:1955 Author Organization [facility] Address [address] [place] [address] Care Team Providers Name Role Phone Unassigned, Provider Primary Care Provider Unavailable Reason for Visit Reason Comments Other Encounter Details Date Type Department Care Team Description 02/29/2012 Notes/Orders [facility] Fior Daniel, RN [address] [place], [place] [address] Social History Tobacco Use Types Packs/Day Years Used Date Smoking Tobacco: Never Assessed Sex Assigned at Date Recorded Not on file documented as of this encounter Progress Notes Fior Daniel RN - 02/29/2012 8:56 AM CST Neupro 4mg patch was approved with Prior authorization until 02/16/2013. documented in this encounter Plan of Treatment Upcoming Encounters Date Type Specialty Care Team Description 06/08/2022 Appointment Neurology Parris Lucas MD [address] [facility] [address] [facility] [address] [address] (Wo rk) documented as of this encounter Visit Diagnoses Not on filedocumented in this encounter Care Teams Braided Band Assembler Relationship Specialty Start Date End Date Unassigned, Provider PCP - General 03/13/00 03/16/14 [address] [place] [address] documented as of this encounter
--- OUTSIDE RECORDS SUMMARY | 2021-12-14 22:54 | XMS_ITS | Encounter Summary ---
:1955 Author Organization [facility] Address [address] [place] [address] Care Team Providers Name Role Phone Unassigned, Provider Primary Care Provider Unavailable Reason for Visit Reason Comments Follow-up FALL MEDICATION CHECK Encounter Details Date Type Department Care Team Description 05/31/2013 Office Visit [facility] Parris Lucas MD Parkinson's disease [facility] [place] [address] [phone] (Wo rk) Social History Tobacco Use Types Packs/Day Years Used Date Smoking Tobacco: Never Assessed Sex Assigned at Date Recorded Not on file documented as of this encounter Last Filed Vital Signs Vital Sign Reading Time Taken Comments Blood Pressure 100/68 05/31/2013 10:08 AM CDT Pulse 70 05/31/2013 10:08 AM CDT Temperature - - Respiratory Rate - - Oxygen Saturation - - Inhaled Oxygen Concentration - - Weight 74.5 kg (164 lb 4.8 oz) 05/31/2013 10:04 AM CDT Height - - Body Mass Index 24.98 01/17/2013 9:57 AM DEPARTMENT OPERATIONS MANAGER documented in this encounter Patient Instructions Patient InstructionsParris Lucas MD - 05/31/2013 10:49 AM CDT see physical therapy for evaluation for a walker documented in this encounter Progress Notes Parris Lucas MD - 05/31/2013 12:27 PM CDT [facility] ANNUAL Follow-up Examination [facility] [address] [place] [address] SUBJECTIVE: Chief Complaint Patient presents with ??? Follow-up Started support group in [place]! ??? Fall Couple falls since last visit. Will take walker with her if she goues out for long periods of time ??? Medication Check working okay for her. Update and other concerns: returns for followup. She continues to take sinemet every 2 hours, and amantadine. She uses a walker some of the time. She will be going up to [facility] in August, and has a camping trip planned in September. She started a support group in [place]! Past Medical History Update: no new issues Adverse Drug Reactions: Adverse Drug Reactions were reviewed today, and updated on the Health Profile of [facility]. Current Medications: Reviewed today and updated on Health Profile in [facility]. Current Outpatient Prescriptions on File Prior to Visit Medication Sig Note Dispense Refill ??? ALPRAZolam (XANAX) 0.25 mg tablet Take 1 tablet by mouth daily as needed for Anxiety. 20 tablet 5 ??? amantadine HCl (SYMMETREL) 100 mg capsule TAKE ONE CAPSULE BY MOUTH TWICE DAILY 180 capsule 3 ??? calcium carbonate (TUMS EX) 300 mg [...] tablets by mouth every 2 hours. Take [id number], total of 16 tabs. ??? cholecalciferol (VITAMIN D3) 1,000 unit Tab Take 2,000 Units by mouth daily (every 24 hours). ??? [DISCONTINUED] docusate sodium (COLACE) 100 mg capsule Take 1 capsule by mouth daily (every 24 hours). LW Addl Instr:Indicated for: Stool Softener 180 3 ??? [DISCONTINUED] drug not in computer Indications: Almased powder every other day ??? escitalopram (LEXAPRO) 10 mg tablet Take 10 mg by mouth daily (every 24 hours). ??? [DISCONTINUED] mirtazapine (REMERON) 15 mg tablet Take 1 tablet by mouth nightly. 90 tablet 4 ??? mirtazapine (REMERON) 30 mg tablet TAKE ONE HALF TABLET BY MOUTH NIGHTLY AT BEDTIME 45 tablet 7 ??? omega-3 fatty acids-fish oil 340-1,000 mg capsule Take 1 g by mouth 2 times daily. ??? [DISCONTINUED] polyethylene glycol (MIRALAX) 17 gram/dose powder Take 17 g by mouth daily (every24 hours). LW Addl Instr:Dissolve each dose in at least 8 ounces of fluid and drink. 01/17/2013: [id number] No current facility-administered medications on file prior to visit. Family History Update: No new information to report Social History Update: lives in private home work status: not working financial reporting advisor: no concerns driving status: limits appropriately family involvement, need for assistance: independent alcohol/tobacco: no smoking, no alcohol exercise: will exercise more this summer 1-2/week at the moment safety concerns: none Advance health care directive: not in our chart other: none Review of Systems: cognitive: no concerns autonomic: constipation, dry mouth psychiatric: (PQRS measure #290) anxiety relieved by alprazolam sleep: (PQRS measure #292) no concerns falls/assistive device: she had 1-2 falls, uses her walker more dyskinesia/wearing off: she does have dyskinesia skin: aware of the increased risk of melanoma weight/nutrition: weight is up a few pounds other: none OBJECTIVE: Vital Signs: BP 100/68 Pulse 70 Wt 74.526 kg (164 lb 4.8 oz) BMI 24.99 kg/m2 Unified Parkinson's Disease Rating Scale (Part 2) Functional Score (maximum 52): 11 General: beautifully dressed and groomed Neurologic exam: cognitive assessment (PQRS measure #291): The mental status was normal in all spheres: attention, concentration, memory, fund of knowledge, and language. no tremor, mild sinuous dyskinesia rises easily, walks well, with a slightly awkward posture ASSESSMENT: (review of diagnosis and discussion of any atypical features; PQRS measure #289) Parkinson's disease, stage 2 with motor fluctuation on sinemet and amantadine. She seems emotionallyto be doing much better than the last time I saw her, and so I do not feel the need to pursue additional therapies at this point. Return in 6 months. I will send her to PT for a walker eval, as she is using someone else's second hand walker, but really needs one of her own. PLAN: medical and surgical treatment options: (PQRS measure #294) no changes rehabilitation options: (PQRS measure #293) PT for a walker eval participation in research: not today safety concerns counseling: none return in 6 months Total time: 30 minutes, Counseling time: 25 minutes about issues described in Assessment and Plan Send copy to: Dr. Prakash Pérez, [address] [place] [id number] Parris Lucas MD 10:39 AM 05/31/2013 *Note: underlined items are the 10 items included in the 2011 [place] [employer] Parkinson's Disease Practice Parameters for the annual examination of a person with Parkinson's disease documented in this encounter Plan of Treatment Upcoming Encounters Date Type Specialty Care Team Description 06/08/2022 Appointment Neurology Parris Lucas MD [address] [facility] [address] [facility] [id number] (Wo rk) documented as of this encounter Visit Diagnoses Diagnosis Parkinson's disease ([facility]) - Primary documented in this encounter Care Teams Policyholder Information Clerk Relationship Specialty Start Date End Date Unassigned, Provider PCP - General 03/13/00 03/16/[address] [place] [address] documented as of this encounter
--- OUTSIDE RECORDS SUMMARY | 2021-12-14 22:54 | XMS_ITS | Encounter Summary ---
:1955 Author Organization [facility] Address [address] [place] [address] Care Team Providers Name Role Phone Unassigned, Provider Primary Care Provider Unavailable Reason for Visit Reason Comments Prior Authorization Request Encounter Details Date Type Department Care Team Description 05/15/2013 Telephone [facility] Chelsie Toribio, Prior Authorization [address] [place] [address] Social History Tobacco Use Types Packs/Day Years Used Date Smoking Tobacco: Never Assessed Sex Assigned at Date Recorded Not on file documented as of this encounter Nursing Notes Daniela Prakash RN - 05/15/2013 4:22 PM CDT patient states she gets her Alprazolam at [facility] in [place], [place] Daniela Prakash RN - 05/15/2013 4:22 PM CDT Called pharmacist with the numbers suggested by [employer]. Pharmacist states the drug went through her insurance and the cost is $2.04, without insurance the cost is $7.00. He took the numbers and will keep them on file just in case there is any problem in the future. Chelsie Toribio RN - 05/15/2013 9:30 AM CDT Received fax from Jessica with a letter from Medicare stating that her alprazolam 0.25mg is not on theformulary. Called Medicare and they confirmed that med is not on formulary, transferred me to [facility]. Activity Coordinator there stated that if we give the pharmacy the isadorawnew numbers drug will have $1.00 co-pay. ID# [id number] PCN: [id number] BIN: [id number] no group number needed. Called pharmacy listed, but they do not have this drug listed on her profile. Tried to call Jessica, to find out which pharmacy she uses for this drug. Unable to leave a message oncell phone. LM on home phone asking her to give us a call back, we have some questions for her. documented in this encounter Plan of Treatment Upcoming Encounters Date Type Specialty Care Team Description 06/08/2022 Appointment Neurology Parris Lucas MD [address] [facility] [address] [facility] [id number] (Wo rk) documented as of this encounter Visit Diagnoses Not on filedocumented in this encounter Care Teams Pharmacy Scheduler Relationship Specialty Start Date End Date Unassigned, Provider PCP - General 03/13/00 03/16/[address] [place] [address] documented as of this encounter
--- OUTSIDE RECORDS SUMMARY | 2021-12-14 22:54 | XMS_ITS | Encounter Summary ---
:1955 Author Organization [facility] Address [address] [place] [address] Care Team Providers Name Role Phone Unassigned, Provider Primary Care Provider Unavailable Encounter Details Date Type Department Care Team Description 06/04/2013 Notes/Orders [facility] Betina Babcock, [address] ruby PT [place], [place] [address] [address] [phone] [address] CHANEY N [id number] (Wo rk) Social History Tobacco Use Types Packs/Day Years Used Date Smoking Tobacco: Never Assessed Sex Assigned at Date Recorded Not on file documented as of this encounter Progress Notes Betina Babcock, PT - 06/04/2013 9:35 AM CDT Phone call to pt on 06/04 regarding pursuit of 4WW/transport chair device: Education provided regarding vendor near [place] who participates in Medicare competitive bid program. [facility] [address] [place] [address] phone: fax: Spoke with vendor over the phone (Carlee) who verified storefront options for Drive Duet Rollator/Transport Chair with 8 inch casters. Confirmed requirement for faxing signed prescription along with face sheet - reports of no other necessary documentation. Pt agreed to make appointment with vendor for trial of device prior to decision regarding pursuit. Advised pt there will likely be an up-charge paid out of pocket as insurance often covers cost of basic components such as frame but may not cover additional parts needed for conversion to transport chair. Pt confirmed understanding. Necessary documentation faxed to [place] attn: Carlee on 06/04/13. Therapist instructed patient to call with questions or concerns. Completed by Betina Brambila PT License #[id number] documented in this encounter Plan of Treatment Upcoming Encounters Date Type Specialty Care Team Description 06/08/2022 Appointment Neurology Parris Lucas MD [address] [facility] [address] [facility] N [address] (Wo rk) documented as of this encounter Visit Diagnoses Not on filedocumented in this encounter Care Teams Glucose And Syrup Weigher Relationship Specialty Start Date End Date Unassigned, Provider PCP - General 03/13/00 03/16/[address] [place] [address] documented as of this encounter
--- OUTSIDE RECORDS SUMMARY | 2021-12-14 22:54 | XMS_ITS | Encounter Summary ---
:1955 Author Organization [facility] Address [address] [place] [address] Care Team Providers Name Role Phone Unassigned, Provider Primary Care Provider Unavailable Reason for Visit Reason Comments Medication Questions Encounter Details Date Type Department Care Team Description 03/01/2013 Telephone [facility] Chelsie Toribio senior storage administrator Questions [address] [place], [place] [address] Social History Tobacco Use Types Packs/Day Years Used Date Smoking Tobacco: Never Assessed Sex Assigned at Date Recorded Not on file documented as of this encounter Nursing Notes Chelsie Toribio RN - 03/04/2013 12:03 PM CST Jessica called back. Told her that according to insurance co. drug is covered. She will contact us if she has any problems. ADMINISTRATOR Chelsie Toribio RN - 03/01/2013 4:50 PM CST Received a fax from pt. along with formulary exception form. stating that apralozam will not be covered by medicare next year. Called [employer] and they ran it through for next year and drug was covered. Brand name notcovered, but patient is not on brand name. Called and LM asking Jessica to call back with some news. ADMINISTRATOR documented in this encounter Plan of Treatment Upcoming Encounters Date Type Specialty Care Team Description 06/08/2022 Appointment Neurology Parris Lucas MD [address] [place] [address] (Wo rk) documented as of this encounter Visit Diagnoses Not on filedocumented in this encounter Care Teams Sous Chef Relationship Specialty Start Date End Date Unassigned, Provider PCP - General 03/13/00 03/16/[address] [place] [address] documented as of this encounter
--- OUTSIDE RECORDS SUMMARY | 2021-12-14 22:54 | XMS_ITS | Encounter Summary ---
:1955 Author Organization [facility] Address [address] [place] [address] Care Team Providers Name Role Phone Unassigned, Provider Primary Care Provider Unavailable Reason for Visit Reason Comments Medication Questions Encounter Details Date Type Department Care Team Description 02/16/2012 Telephone [facility] Fior Daniel, administrative support manager Questions [address] [place], [place] [address] Social History Tobacco Use Types Packs/Day Years Used Date Smoking Tobacco: Never Assessed Sex Assigned at Date Recorded Not on file documented as of this encounter Nursing Notes Fior Daniel RN - 02/16/2012 12:53 PM CST Have a 2mg and 4mg sample, will mail. Please sign samples I pended and close encounter. TENANCE REPAIRER Parris Lucas MD - 02/16/2012 11:51 AM CST ok, thanks TENANCE REPAIRER Fior Daniel RN - 02/16/2012 11:37 AM CST Darlene called, she is on 4mg Neupro patch, next Monday she will go to 4 and 2. As of now she doesn't feel like it is doing anything for her. She will run out . I will mail her out one more week of the 2 and 4 once we have more samples so once she is on 6mg for a week we can do prior auth if necessary and not have her run out with holidays. documented in this encounter Plan of Treatment Upcoming Encounters Date Type Specialty Care Team Description 06/08/2022 Appointment Neurology Parris Lucas MD [address] [facility] [address] [facility] [address] (Wo rk) documented as of this encounter Visit Diagnoses Not on filedocumented in this encounter Care Teams Orchestra Leader Relationship Specialty Start Date End Date Unassigned, Provider PCP - General 03/13/00 03/16/[address] [place] [address] documented as of this encounter
--- OUTSIDE RECORDS SUMMARY | 2021-12-14 22:54 | XMS_ITS | Encounter Summary ---
:1955 Author Organization [facility] Address [address] [place] [address] Care Team Providers Name Role Phone Prakash Pérez MD Primary Care Provider Reason for Visit Reason Comments Medication Questions Encounter Details Date Type Department Care Team Description 03/18/2014 Telephone [facility] Chelsie Toribio, statement distribution clerk Questions [address] [place] [address] Social History Tobacco Use Types Packs/Day Years Used Date Smoking Tobacco: Never Assessed Sex Assigned at Date Recorded Not on file documented as of this encounter Nursing Notes Chelsie Toribio RN - 03/18/2014 4:36 PM CST Received refill request from [facility] pharmacy for alprazolam 0.25mg. New Rx for this had just been sent to [facility] on 03/10/14. Called Jessica asked her if new Rx was needed? She states their was a mix-up, no medication needed. Will disregard this request. OPHYSICIST documented in this encounter Plan of Treatment Upcoming Encounters Date Type Specialty Care Team Description 06/08/2022 Appointment Neurology Parris Lucas MD [address] [facility] [address] [place] N [address] (Wo rk) documented as of this encounter Visit Diagnoses Not on filedocumented in this encounter Care Teams Elevator Examiner And Adjuster Relationship Specialty Start Date End Date Prakash Pérez MD PCP - General 03/17/14 08/20/18 [address] [facility] [place] [address] documented as of this encounter
--- OUTSIDE RECORDS SUMMARY | 2021-12-14 22:54 | XMS_ITS | Encounter Summary ---
:1955 Author Organization [facility] Address [address] [place] [address] Care Team Providers Name Role Phone Unassigned, Provider Primary Care Provider Unavailable Reason for Visit Reason Comments ERRONEOUS ENTRY Encounter Details Date Type Department Care Team Description 02/29/2012 Telephone [facility] Fior Daniel RN ERRONEOUS ENTRY [address] [place], [place] [address] Social History Tobacco Use Types Packs/Day Years Used Date Smoking Tobacco: Never Assessed Sex Assigned at Date Recorded Not on file documented as of this encounter Plan of Treatment Upcoming Encounters Date Type Specialty Care Team Description 06/08/2022 Appointment Neurology Parris Lucas MD [address] [facility] [address] [facility] N [phone] (Wo rk) documented as of this encounter Visit Diagnoses Not on filedocumented in this encounter Care Teams Egg Sorter Relationship Specialty Start Date End Date Unassigned, Provider PCP - General 03/13/00 03/16/[address] [place] [address] documented as of this encounter
--- OUTSIDE RECORDS SUMMARY | 2021-12-14 22:54 | XMS_ITS | Encounter Summary ---
:1955 Author Organization [facility] Address [address] [place] [address] Care Team Providers Name Role Phone Unassigned, Provider Primary Care Provider Unavailable Reason for Visit Reason Comments Medication Questions Encounter Details Date Type Department Care Team Description 01/16/2012 Telephone [facility] Chelsie Toribio chief station engineer Questions [address] [place], [place] [address] Social History Tobacco Use Types Packs/Day Years Used Date Smoking Tobacco: Never Assessed Sex Assigned at Date Recorded Not on file documented as of this encounter Nursing Notes Daniela Prakash RN - 01/30/2012 2:14 PM CST mailed samples to home address. [place] RIDE FARE COLLECTOR Parris Luacs MD - 01/27/2012 7:42 AM CST scripts signed [place] RIDE FARE COLLECTOR Chelsie Toribio RN - 01/25/2012 5:57 PM CST Received more samples of Neupro Please sign for samples and we will call her and send to her. Thanks. ND RIDE FARE COLLECTOR Parris Lucas MD - 01/19/2012 3:41 PM CST ok, thanks [place] RIDE FARE COLLECTOR Fior Daniel RN - 01/19/2012 2:47 PM CST Patient sent a fax asking us to get a prior authorization. I explained to her that we really need toget her started on the patch first and work up, be sure it works before asking for coverage. She understands. We will have more samples coming in a couple of days so we can mail all out together and then she is to call when she gets on 6mg. Please call when samples are sent. [place] RIDE FARE COLLECTOR Chelsie Toribio RN - 01/18/2012 5:30 PM CST Darlene called and stated that she spoke with insurance company and that they told her it looks promising that they would cover Neupro. Told her we were low on samples (2mg), but I could send her a 2mg and 4mg and then to call to get 6mg (2mg +4mg) in about a week. Went over instructions on how to apply. Told her to call and let us know how it is going so then we can write a prescription and do a PA. Please sign for samples and we will mail to home address, as she is unable to get here to supervisor opening and picking. Samples in med cabinet with her name on it. Chelsie Toribio RN - 01/17/2012 5:37 PM CST Called and spoke with Darlene. Explained to her about Neupo patch, and talked about how insurance might not cover it. She will get a hold of her insurance co. see what she can find out about cost andthen decide what she wants to do then. Told her to call us back and let us know and then by that time we might have some samples for her to try. Fior Waters RN - 01/17/2012 3:09 PM CST Left message to call back. [place] RIDE FARE COLLECTOR Parris Lucas MD - 01/16/2012 5:58 PM CST I would love to give her the patch, 2-4-6mg one week of each and then decide what dose to write a prescription for. We may have trouble doing a prior auth for her, though, as she has not previously taken Mirapex or Requip, I think. [place] RIDE FARE COLLECTOR Chelsie Toribio RN - 01/16/2012 5:35 PM CST Darlene called because she is experiencing some wearing off. She currently takes 1 tab of 25/100 IR and 2 tabs of 25/100 CR (because of 50/100 shortage) about every 3 hours. After about 2 hours she is stiff and it is harder for her to move, her knees lock up, legs feel heavy, and she freezes. This has been going on for a couple months. She is wondering what to do? Is there another med to take along with sinemet to make it last longer?Neupro patch? Thoughts? Thanks. She has an appt with you 02-07-12. Chelsie Toribio RN - 01/16/2012 4:53 PM CST Jean called and LM stating that her meds are not working and she as an appt 02-07-12. Tried to call, but line was busy, will attempt later. documented in this encounter Plan of Treatment Upcoming Encounters Date Type Specialty Care Team Description 06/08/2022 Appointment Neurology Parris Lucas MD [address] [facility] [address] [facility] [address] (Wo rk) documented as of this encounter Visit Diagnoses Not on filedocumented in this encounter Care Teams Securities And Real Estate Director Relationship Specialty Start Date End Date Unassigned, Provider PCP - General 03/13/00 03/16/[address] [place] [address] documented as of this encounter
--- OUTSIDE RECORDS SUMMARY | 2021-12-14 22:54 | XMS_ITS | Encounter Summary ---
:1955 Author Organization [facility] Address [address] [place] [address] Care Team Providers Name Role Phone Unassigned, Provider Primary Care Provider Unavailable Reason for Visit Reason Comments Refill Encounter Details Date Type Department Care Team Description 10/25/2012 Refill [facility] 3931 Krystal Lucsa MD Refill Neurology [address] [facility] [address] [place] [address] [place], [place] [address] [phone] Social History Tobacco Use Types Packs/Day Years Used Date Smoking Tobacco: Never Assessed Sex Assigned at Date Recorded Not on file documented as of this encounter Nursing Notes Chelsie Toribio RN - 10/26/2012 5:41 PM CDT Last seen: 10/2012, no changes to medication. Will refill per protocol. documented in this encounter Plan of Treatment Upcoming Encounters Date Type Specialty Care Team Description 06/08/2022 Appointment Neurology Parris Lucas MD [address] [facility] [address] [facility] [id number] (Wo rk) documented as of this encounter Visit Diagnoses Not on filedocumented in this encounter Care Teams Fish Worm Grower Relationship Specialty Start Date End Date Unassigned, Provider PCP - General 03/13/00 03/16/[address] [place] [address] documented as of this encounter
--- OUTSIDE RECORDS SUMMARY | 2021-12-14 22:54 | XMS_ITS | Encounter Summary ---
:1955 Author Organization [facility] Address [address] [place] [address] Care Team Providers Name Role Phone Unassigned, Provider Primary Care Provider Unavailable Reason for Visit Reason Comments Refill Encounter Details Date Type Department Care Team Description 12/08/2011 Telephone [place] [facility] Tiera Kaur, RN Refill [address] [place], [place] [address] Social History Tobacco Use Types Packs/Day Years Used Date Smoking Tobacco: Never Assessed Sex Assigned at Date Recorded Not on file documented as of this encounter Nursing Notes Parris Lucas MD - 12/09/2011 6:39 AM CDT ok, thanks Tiera Kaur, RN - 12/08/2011 2:22 PM CDT Confirmed with [facility] in [place] that they have sinemet cr 25/100 in stock, and they do. New order for sinemet cr 25/100 provided (doubled quantity of cr 50/200 prescription). Call to Jessica. 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 Tiera Kapoor, RN - 12/08/2011 2:03 PM CDT Spoke with Darlene. She will call local pharmacies to see if they have any cr 25/100. She will call with pharmacy name if she locates one, and if not will have Dr. Lucas change her medications. Tiera Kaur RN - 12/08/2011 1:24 PM CDT [facility] They do not have a supply of sinemet cr 25/100. Call to Darlene asking her to call for next steps. Can ask her to call other pharmacies, as some have the cr 25/100. If not, will have to get plan for alternate medication from Dr. Lucas. 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 documented in this encounter Plan of Treatment Upcoming Encounters Date Type Specialty Care Team Description 06/08/2022 Appointment Neurology Parris Lucas MD [address] [facility] [address] [facility] [id number] (Wo rk) documented as of this encounter Visit Diagnoses Not on filedocumented in this encounter Care Teams Tomato Pulper Operator Relationship Specialty Start Date End Date Unassigned, Provider PCP - General 03/13/00 03/16/[address] [place] [phone] documented as of this encounter
--- OUTSIDE RECORDS SUMMARY | 2021-12-14 22:54 | XMS_ITS | Encounter Summary ---
:1955 Author Organization [facility] Address [address] [place] [address] Care Team Providers Name Role Phone Unassigned, Provider Primary Care Provider Unavailable Reason for Visit Reason Comments UPDATE Encounter Details Date Type Department Care Team Description 02/24/2012 Telephone [place] [facility] Daniela Prakash, RN UPDATE [address] [place], [place] [address] Social History Tobacco Use Types Packs/Day Years Used Date Smoking Tobacco: Never Assessed Sex Assigned at Date Recorded Not on file documented as of this encounter Nursing Notes Daniela Prakash, RN - 02/24/2012 1:11 PM CST patient reports the Neupro 6 mg patch is not providing any more benefit than the 4 mg patch. She would like to continue with the Neupro 4 mg patch. She has never tried Requip or Mirapex. She is on Amantadine and Sinemet. Prior authorization paperwork completed and faxed to [place] [employer]. documented in this encounter Plan of Treatment Upcoming Encounters Date Type Specialty Care Team Description 06/08/2022 Appointment Neurology Parris Lucas MD [address] [facility] [address] [facility] N [id number] (Wo rk) documented as of this encounter Visit Diagnoses Not on filedocumented in this encounter Care Teams Cover Creaser Relationship Specialty Start Date End Date Unassigned, Provider PCP - General 03/13/00 03/16/[address] [place] [id number] documented as of this encounter
--- OUTSIDE RECORDS SUMMARY | 2021-12-14 22:55 | XMS_ITS | Encounter Summary ---
:1955 Author Organization [facility] Address [address], [place] [address] Care Team Providers Name Role Phone Unassigned, Provider Primary Care Provider Unavailable Reason for Visit Reason Comments Follow-up Encounter Details Date Type Department Care Team Description 06/09/2011 Office Visit [facility] Antonio Dennis, Parkinson's disease [address] [place] ([facility]) (Primary Dx) Drive [address] [place], [place] [address] [address] [place], [place] [phone] (Wo rk) Social History Tobacco Use Types Packs/Day Years Used Date Smoking Tobacco: Never Assessed Sex Assigned at Date Recorded Not on file documented as of this encounter Progress Notes Antonio Dennis MD - 06/09/2011 5:14 PM CDT Progress Notes signed by Antonio Dennis MD at 06/09/11 1223 Author: Antonio Dennis MD Service: (none) Author Type: Physician Filed: 06/09/11 1223 Note Time: 06/09/11 171 Status: Signed Power Bender Operator: Antonio Dennis MD (Physician) NAME: DARLENE DREW MR#: [id number] CSN: [id number] AUTHENTICATING CLINICIAN: Antonio Dennis MD CONFIRM #: [id number] LOC: 43094 CLINIC PROGRESS NOTE DATE OF VISIT: 06/09/2011 : 1955 HISTORY OF PRESENT ILLNESS: Darlene Drew is a 55-year-old woman who is being evaluated today for possible inclusion into the Preladenant study for use with subjects with [id number] Parkinson's disease. She is followed by Dr. Shayy garcia at [facility]. She has a history of Parkinson's disease symptoms dating back approximately 3 years with left-sided predominant symptoms including tremor, rigidity, bradykinesia. She is having wearing off occasionally between doses of her levodopa. She currently takes a combination of both extended-release and immediate-release levodopa. She has freezing and some balance difficulties when her medications wear off but feels her gait is otherwise fairly normal other than some dyskinesia when she ambulates. She has not had any recent falls. She has not had significant cognitive difficulties as related to her Parkinson's disease. She has had some orthostatic hypotension. PAST MEDICAL HISTORY: 1. Parkinson's disease. 2. Orthostatic hypotension. 3. Constipation. CURRENT MEDICATIONS: 1. Carbidopa-levodopa CR 50/200 one tablet every 4 hours. 2. Carbidopa-levodopa 25/100, one to four doses each day. 3. Colace 100 mg daily. 4. Vitamin D. 5. Folic acid, vitamin B6, vitamin B12 one tablet daily. 6. Lincoln-3 fatty acids/fish oil. 7. Polyethylene glycol 17 g daily. PHYSICAL EXAM: GENERAL: She is alert, pleasant, in no acute distress. CARDIOVASCULAR: Regular rate and rhythm without murmur. No carotid bruits. RESPIRATORY: Clear to auscultation bilaterally. ABDOMEN: Soft, nontender, nondistended, positive bowel sounds. HEENT: Head is atraumatic and normocephalic. LYMPH: Normal without cervical lymphadenopathy. SKIN: No new lesions. NEUROLOGIC EXAMINATION: SPEECH: Normal without hypophonia, dysarthria, or aphasia. CRANIAL NERVES: Mild breakup of smooth pursuit and mild diminution of facial expression with otherwise normal findings. MOTOR: Tone is mildly increased in the left greater than right upper and lower extremities. Strength is 5/5 throughout the upper and lower extremities. There is no tremor at rest, with outstretched arms, or with action. There is mild dyskinesia which is truncal and appendicular and location. COORDINATION: There is mild bradykinesia of the left greater than right upper and lower extremities. GAIT: She is able to rise from a chair with arms crossed. She has mildly reduced arm swing on the left compared to the right and dyskinesia. She has a completely abnormal pull test. IMPRESSION: Given that she currently is Anisha-Yahr stage 2 when she is in the on- medication state, she will not qualify for this study which requires people to be stage 2.5 or worse. These findings were discussed with her, and she will follow up with Dr. Lucas for further recommendations. QUOCK:MANUEL C: CONFIRM #: [id number] documented in this encounter Plan of Treatment Upcoming Encounters Date Type Specialty Care Team Description 06/08/2022 Appointment Neurology Parris Lucas MD [address] [facility] [address] [facility] [phone] (Wo rk) documented as of this encounter Visit Diagnoses Diagnosis Parkinson's disease (HRC) - Primary documented in this encounter Care Teams Senior Consumer Insights Consultant Relationship Specialty Start Date End Date Unassigned, Provider PCP - General 03/13/00 03/16/[address] [place] [id number] documented as of this encounter
--- OUTSIDE RECORDS SUMMARY | 2021-12-14 22:55 | XMS_ITS | Encounter Summary ---
:1955 Author Organization [facility] Address [address] [place] [address] Care Team Providers Name Role Phone Unassigned, Provider Primary Care Provider Unavailable Reason for Referral Specialty Diagnoses / Procedures Referred By Contact Refer red To Contact Parris Lucas MD [address] [facility] [address] [place], [place] [address] Referral ID Status Reason Start Date Expiration Date Visits Requ ested Visits Authorized TER ASSISTANT Reason for Visit Reason Comments Balance/gait Dysfunction Encounter Details Date Type Department Care Team Description 04/19/2011 Initial Consult [place] Gabriela Briggs rkinson's disease (HRC) (Primary Dx); Therapy L, PT Abnormality of gait; [address] [place] [facility] istory of fall; [facility] Knee pain, bilateral [place], [place] [phone] Social History Tobacco Use Types Packs/Day Years Used Date Smoking Tobacco: Never Assessed Sex Assigned at Date Recorded Not on file documented as of this encounter Progress Notes Gabriela Mcbride, PT - 04/26/2011 8:40 AM CST Physical Therapy Parkinson Evaluation/Plan of Care 04/19/2011 3:30 p.m. Initial Certification Period: 04/19/2011 to 07/17/11 Referring Provider: Dr. Parris Lucas. Primary Diagnosis: Parkinson's Disease (332.0). History of falls (V15.88). Reason for Referral: Outpatient PT. Orders: Evaluate and treat. Exacerbation Date: 04/06/2011 Last Referring MD Visit: 04/18/2011 SUBJECTIVE: Mobility Limitations Reported: Falling. Gait deficits. Transfers. Reduced activity tolerance. Balance/Falls in past 6 months (Average): 2 falls at night, related to freezing, with last fall approxiamtely 1 month ago. -Nature of falls: Forward. -Circumstances of falls: Related to freezing. Motor Fluctuations Reported: Yes. Dyskinesia Reported - United Parkinson's Disease Rating Scale (UPDRS) - -Duration: Proportion of the waking day dyskinesias present: 1=1-25% -Disability: How disabling are the the dyskinesias: 1=Mildly disabling. Pain Screen: -Location: bilateral knee pain, up to 8/10 at times, 1/10 now Pain Description: Intermittent. Past Medical History: Refer to Electronic Medical Records for past medical history, medications, andadverse drug reactions. Past Medical History Pertinent to Therapy include: Parkinson's disease dx 2007, orthostatic hypotension Assistive Device: none Support System: Lives with primary landcare facilitator. Living Situation: Private home, more than 1 level. -Access to residence: Stairs to enter. -Living location: Outlying [place] area. -Living Environment: Urban-mostly paved areas to ambulate. Driving: Yes. local driving only Community Mobility: Only tolererates short distances. Leisure Activities: Yardwork. housework Formal Exercises: Biking stationary. Walking-treadmill or indoors. Yoga. eliptical. Exercise Frequency: Several times per week. 2-3x/week at [employer] Communication: Clear. Occupation: retired Patient's Therapy Goal: reduce freezing, reduce falls, reduce knee pain OBJECTIVE: Blood Pressure: Not Symptomatic. Reportedly was 84/60 yesterday so is having medical workup to checkcardiac status, etc. (per report) Behavioral Characteristics: Alert. Cooperative. Pleasant. Motor Function at Time of Eval: On - best level of functioning on medication. Tremor Observed: Mild. -Timing: Intermittent. -Position: Resting. -Area(s) Affected: Left upper extremity. Right upper extremity. Rigidity: (UPDRS)(Judged on passive movement of major joints with pt relaxed in sitting positions. Cogwheeling to be ignored). 2-Mild to moderate. -Area(s) Affected: Axial. Body Bradykinesia and Hypokinesia: (UPDRS)(Combining slowness, hesitancy, decreased armswing, small amplitude, and poverty of movement in general) 2=Mild degree of slowness and poverty of movement which is definitely abnormal. Alternatively, some reduced amplitude. Dyskinesia (at time of evaluation): Minimally impacts function. Range of Motion: Spine minimally restricted. Axial extension minimally restricted. Left lower extremity within normal limits. Right lower extremity within normal limits. Muscle Strength Deficits: Core trunk muscles minimal impaired (4/5 grossly). Left lower extremity minimal impaired (4/5 grossly). Right lower extremity minimal impaired (4/5 grossly). Posture/Alignment: (Gross Assessment) Forward head moderate. Thoracic kyphosis increased minimal. Lumbar lordosis reduced minimal. Transfers: -Sit to stand: Safe and independent. -Sit to stand: Difficulty from low or soft surfaces. -Stand to sit: Safe and independent. Gait: No assistive device. -Assistance required: Independent. -General Gait Description: Reduced foot clearance, bilateral. Reduced arm swing, bilateral. Multistep turn. Start-hesitation. Step hypokinesia, bilateral. -Gait Velocity (Distance/Time; <=2.5 ft/sec considered high fall risk): 2.78 ft/second. Balance: Deferred [place] balance testing today in order to focus on functional mobility and fall prevention. Biomechanical Constraints: -Base of support: Narrow. -Center of Mass alignment: Abnormal anterior/posterior. -Ankle Strength and ROM: Impairment in either foot of ankle flexor or extensors (less then max height). -Hip/Trunk Lateral Strength: Mild: Abducts both hips to lift foot off the floor for 10 seconds without keeping trunk vertical. Reactive Postural Response - In Place: -Forward: (Isometric push back from shoulders with quick release): Recovers stability with ankles, no added arm or hip motion. -Backward (Isometric push forward then scapulae with quick release): Recovers stability with ankles,no added arm or hip motion. TREATMENT TODAY -Physical Therapy Evaluation (CPT 19836) -Gait training (CPT 09946) - 15 minutes: instructed in gait compensatory strategies for freezing andpropulsion. Instructed in strategies to improve foot clearance and stability, with emphasis on upright posture and wider base of support prior to initiating gait, wider increased step length with more d eliberate heel strike to encourage full knee extension (reduce stress on knees) and prevent propulsion. -Therapeutic activities (CPT 58406)- 15 minutes: Instructed in strategies to manage postural hypotension, worked on control and technique with sit-stand. Instructed in strategies to aid in turns/direction changes -Therapeutic exercise (CPT 59355) - 10 minutes: instructed in supine LE/trunk stretches, including knee to chest, hamstring and lower trunk rotation. Instructed in high amplitude exercise step and reach sideways to faciliate turns. Provided resources on exercise DVD options for home Patient/Carepartner instructed in: -Home program. -Cuing strategies to facilitate safe mobility. -Fall prevention strategies. -Awareness of body alignment and postural corrections strategies. -Proper transfer mechanics. -Self management techniques for pain. Resources Issued: -Exercise handouts. Response to treatment: receptive to recommendations. Appeared somewhat tired as she indicated she has had other medical appointments today. Friend stayed in [place]. Recommend recheck in 1 month. Plan for next treatment: recheck at end of May when here to see MD, progress with balance and highamplitude exercises as tolerated. ASSESSMENT: - Physical Therapy Practice Pattern: Primary prevention/risk reduction for loss of balance and falling. (5A)Impaired motor function, sensory integration associated with disorder central nervous system (5E). Impairments: Balance deficits. Bradykinesia. Gait pattern changes. Freezing of gait. Hypokinesia. Motor fluctuations. Pain. Functional Limitations: -Transfers: Difficult. -Gait instability. -Falls risk. Mobility Restrictions: Limited leisure activities. Possible Barriers to Goal Achievement: Lives a distance from clinic-difficult to get here. Rehab Prognosis: Good. PLAN Planned Treatment: ADL/Home program. Fall prevention. Cuing strategies. Gait training. Neuromuscularre-education. Therapeutic activities. Therapeutic exercise. for 2-4 visits. Discharge Plan: Satisfactory goals are achieved. Estimated Discharge: 90 days. Consent: Results of evaluation were reviewed with patient. Patient was receptive to treatment plan and participated in setting goals. Risks, benefits and alternatives to treatment were reivewed. Expected Functional Outcomes: -Patient/Carepartner to verbalize understanding of physical therapy recommendations in 2-4 visits. -Patient to demonstrate independence of home exercise program with updates/progression as indicated in 2-4 visits. -Patient/Carepartner to verbalize understanding of fall prevention strategies in 2-4 visits. -Patient/Carepartner to verbalize understanding of appropriate cuing strategies to facilitate safe mobility in 2-4 visits. -Patient to demonstrate awareness of body alignment and postural correction in 2-4 visits. -Patient to demonstrate improved transfer mechanics with greater ease in 2-4 visits. -Patient to perform sit to stand/stand to sit with less effort or need for upper extremity support. in 2-4 visits. -Patient to demonstrate improved gait stability with reduced fall risk (per functional tests) for household and/or community ambulation in 2-4 visits. -Reduce pain: to 0-3/10 range with activity in 2-4 visits. TOTAL TREATMENT TIME: 70 minutes. Electronically signed by: Gabriela Mcbride PT, [facility], 2932, 04/20/2011 The fruit trimmer is completed by the therapist and the physician electronic signature certifies medical necessity for the plan above. *SH~REHAB~PTPARKEVA~ Shorthand Note completed on: 04/20/2011 8:36 AM documented in this encounter Plan of Treatment Upcoming Encounters Date Type Specialty Care Team Description 06/08/2022 Appointment Neurology Parris Lucas MD [address] [facility] [address] [facility] [address] (Wo rk) Scheduled Referrals Name Type Priority Associated Diagnoses [facility] Referral Routine Parkinson's disease (HRC ) Ordered: 04/19/2011 documented as of this encounter Visit Diagnoses Diagnosis Parkinson's disease (HRC) - Primary Abnormality of gait Personal history of fall Knee pain, bilateral Pain in joint, lower leg documented in this encounter Care Teams Edge Bonder Relationship Specialty Start Date End Date Unassigned, Provider PCP - General 03/13/00 03/16/14 [address] [place] [address] documented as of this encounter
--- OUTSIDE RECORDS SUMMARY | 2021-12-14 22:55 | XMS_ITS | Encounter Summary ---
:1955 [address] [facility] Address [address] [place] [address] Care Team Providers Name Role Phone Unassigned, Provider Primary Care Provider Unavailable Reason for Visit Reason Comments Questions Encounter Details Date Type Department Care Team Description 04/21/2011 Telephone Man Nursing Fior Daniel, RN Questions [address] [place], [place] [address] Social History Tobacco Use Types Packs/Day Years Used Date Smoking Tobacco: Never Assessed Sex Assigned at Date Recorded Not on file documented as of this encounter Nursing Notes Parris Lucas MD - 04/21/2011 3:28 PM CST thanks GER WORK Fior Daniel, RN - 04/21/2011 1:01 PM CST Darlene called, saw her primary doctor, has an appointment on Monday with a dictating machine mechanic. She is curious if the low blood pressure is related to the sinemet. We discussed that it can be quite commonin people with Parkinsons, sinemet can lower further but she has not had any change in her meds and her b/p last October was also a little bit on the low side. Reviewed how to take orthostatic b/p readings at home, encouraged to increase fluid intake and call to report after seen next week. documented in this encounter Plan of Treatment Upcoming Encounters Date Type Specialty Care Team Description 06/08/2022 Appointment Neurology Parris Lucas MD [address] [place] [facility] [address] [place] [address] [address] (Wo rk) documented as of this encounter Visit Diagnoses Not on filedocumented in this encounter Care Teams Information Technology Project Manager Relationship Specialty Start Date End Date Unassigned, Provider PCP - General 03/13/00 03/16/[address] [place] [phone] documented as of this encounter
--- OUTSIDE RECORDS SUMMARY | 2021-12-14 22:55 | XMS_ITS | Encounter Summary ---
:1955 Author Organization [facility] [place] Address [address] [place] [address] Care Team Providers Name Role Phone Unassigned, Provider Primary Care Provider Unavailable Reason for Visit Reason Comments WEAKNESS,EXTREMITIES Medication Questions Blood Pressure, low Encounter Details Date Type Department Care Team Description 04/18/2011 Office Visit [facility] Parris Lucas MD Parkinson's disease [address] [facility] ) (Primary Dx) Drive [facility] [address] [place] [phone] (Wo rk) Social History Tobacco Use Types Packs/Day Years Used Date Smoking Tobacco: Never Assessed Sex Assigned at Date Recorded Not on file documented as of this encounter Last Filed Vital Signs Vital Sign Reading Time Taken Comments Blood Pressure 84/60 04/18/2011 1:37 PM NEUROSURGERY RESEARCH DIRECTOR Pulse 84 04/18/2011 1:37 PM NEUROSURGERY RESEARCH DIRECTOR Temperature - - Respiratory Rate - - Oxygen Saturation - - Inhaled Oxygen Concentration - - Weight 68.8 kg (151 lb 9.6 oz) 04/18/2011 1:34 PM NEUROSURGERY RESEARCH DIRECTOR Height - - Body Mass Index - - documented in this encounter Patient Instructions Patient InstructionsParris Lucas MD - 04/18/2011 2:18 PM CST Increase your miralax to daily Talk to your primary doctor about increasing your fish oil to twice daily9. Consider eye drops for your dry eyes check your blood pressure sitting and standing and record it drink fluids--add salt--consider tomato juice or Gatorade check with your regular doctor about general health ?diabetes ?thyroid ?anemia consider starting Mirapex for PD--but wait until BP issues are sorted out see PT here about your balance see me in about 6 weeks OSURGERY RESEARCH DIRECTOR documented in this encounter Progress Notes Parris Lucas MD - 04/19/2011 1:50 PM CST [facility] ANNUAL Follow-up Examination [facility] [place] [address] SUBJECTIVE: Chief complaint: Chief Complaint Patient presents with ??? Extremity Weakness legs ??? Medication Question ??? Low Blood Pressure orthostatic today-has been dizzy lately Update and other concerns: returns for followup. She is having some dizziness in the last couple weeks. She has been very thirsty recently, too, for no good reason. She has otherwise felt well. She takes sinemet CR 50/200 about every 3 hours while awake, and adds an extra IR sinemet 3-4 times a day. Past Medical History Update: no specific issues Adverse Drug Reactions: Pt's Adverse Drug Reactions were reviewed today, and updated on the Health Profile of [facility]. Current Medications: Reviewed today and updated on Health Profile in [facility]. Current outpatient prescriptions ordered prior to encounter Medication Sig Dispense Refill ??? carbidopa-levodopa (SINEMET CR) 50-200 mg per tablet Take 1 tablet by mouth. 1 every 4 hours around the clock, 6 doses/day 540 tablet 4 ??? carbidopa-levodopa (SINEMET) 25-100 mg per tablet Take by mouth. 1 in am and 1 up to qid prn 0 ??? docusate sodium (COLACE) 100 mg capsule Take 1 capsule by mouth daily (every 24 hours). LW Addl Instr:Indicated for: Stool Softener 180 3 ??? Ergocalciferol, Vitamin D2, (VITAMIN D) 400 unit Tab Take by mouth daily (every 24 hours). ??? folic acid-vit B6-vit B12 (FOLTX) 2.5-25-2 mg tablet Take 1 tablet by mouth daily (every 24 hours). 90 3 ??? polyethylene glycol (MIRALAX) 17 gram/dose powder Take 17 g by mouth daily (every 24 hours). LW Addl Instr:Dissolve each dose in at least 8 ounces of fluid and drink. 255 12 Family History Update: No new information to report Social History Update: lives in house with her work status: on disability family involvement: is not here but is supportive alcohol/tobacco: none driving status: limits appropriately, not in the cities financial administrative assistant: no concerns Advance directive: has one in place exercise: fitness center 2-3x a week safety concerns: none other: none Review of Systems: cognitive: no major concerns autonomic: constipation, and low blood pressure today psychiatric: no concerns sleep: gets up for the bathroom but otherwise OK falls/assistive device: no cane, 1-2 falls at home, with freezing of gait dyskinesia/wearing off: significant issue as above skin: warned about the increased risk of melanoma weight/nutrition: no concerns other: none OBJECTIVE: Vital Signs: BP 84/60 Pulse 84 Wt 68.765 kg (151 lb 9.6 oz) Unified Parkinson's Disease Rating Scale (Part 2) Functional Score (maximum 52): 9 General: mild dyskinesia throughout the exam, head bobbing and trunk movements. no tremor. Striatal posturing of R hand Neurologic exam: she had small movements of the R hand,particularly for pronation-supination. She chaparro from a chair without using her hands, and had no obvious freezing of gait on initiation. She had an extra step or two on the turn, and had a little insecurity about her balance, although she did OK on testing. ASSESSMENT: Stage 3 Parkinson's disease, with emerging balance issues. I am also concerned about herlow blood pressure, which is fairly common in PD. I would like her to check a few more BP readings at home, and also to check in with her primary care doctor, to make sure we aren't missing a new case of diabetes, or anemia, or low thyroid, or something, that could be contributing to her overall senseof not doing well, low BP, unusual thirst, etc. I will hold off on starting any additional PD meds (I was thinking of adding Mirapex) until I hear that she is medically OK. I would like her to see PT to discuss balance and falls. Return in 6 weeks or so. PLAN: medical and surgical treatment options: see above rehabilitation options: PT participation in research: not today safety concerns counseling: low BP, potential for balance problems, discussed return in 1.5 months Total time: 30 minutes, Counseling time: 20 minutes about issues described in Assessment and Plan Send copy to: Dr. Prakash Pérez, [facility], [address] [place] [address] Parris Lucas MD 1:56 PM 04/18/2011 *Note: underlined items are the 10 items included in the 2011 [place] [employer] Parkinson's Disease Practice Parameters for the annual examination of a person with Parkinson's disease documented in this encounter Plan of Treatment Upcoming Encounters Date Type Specialty Care Team Description 06/08/2022 Appointment Neurology Parris Lucas MD [address] [facility] [address] [facility] [id number] (Wo rk) documented as of this encounter Visit Diagnoses Diagnosis Parkinson's disease (HRC) - Primary documented in this encounter Care Teams Shopping Inspector Relationship Specialty Start Date End Date Unassigned, Provider PCP - General 03/13/00 03/16/[address] [place] [id number] documented as of this encounter
--- OUTSIDE RECORDS SUMMARY | 2021-12-14 22:55 | XMS_ITS | Encounter Summary ---
:1955 Author Organization [facility] Address [address] [place] [address] Care Team Providers Name Role Phone Unassigned, Provider Primary Care Provider Unavailable Reason for Visit Reason Comments Medication Request Encounter Details Date Type Department Care Team Description 09/08/2011 Telephone [place] [facility] Fior Daniel, hydro electric station operator Request [phone] [place], [place] [address] Social History Tobacco Use Types Packs/Day Years Used Date Smoking Tobacco: Never Assessed Sex Assigned at Date Recorded Not on file documented as of this encounter Nursing Notes Tiera Kaur RN - 09/09/2011 3:01 PM CDT prescription for foltex #90 3 refills faxed to [facility] in [place] per your request. Patient notified. Parris Lucas MD - 09/08/2011 5:10 PM CDT sure, that's fine. The [place] guadrian put everyone on prescription folate/B complex with their sinemet, and it's fine for her to continue on it. Fior Daniel, RN - 09/08/2011 12:28 PM CDT Requesting refills for Folic acid or Foltex be sent to [facility] in [place]. I suggested that Dr. Lucas prescribes her Carb/Levo and she should have her primary fill this one but she said you have always done it for her. Please advise if you want to continue filling this one? documented in this encounter Plan of Treatment Upcoming Encounters Date Type Specialty Care Team Description 06/08/2022 Appointment Neurology Parris Lucas MD [address] [facility] [address] [facility] [id number] (Wo rk) documented as of this encounter Visit Diagnoses Not on filedocumented in this encounter Care Teams Milk Inspector Relationship Specialty Start Date End Date Unassigned, Provider PCP - General 03/13/00 03/16/[address] [place] [phone] documented as of this encounter
--- OUTSIDE RECORDS SUMMARY | 2021-12-14 22:55 | XMS_ITS | Encounter Summary ---
:1955 Author Organization [facility] Address [address] [place] [address] Care Team Providers Name Role Phone Unassigned, Provider Primary Care Provider Unavailable Reason for Visit Reason Comments Follow-up Encounter Details Date Type Department Care Team Description 09/01/2011 Office Visit [place] [facility] Parris Lucas MD Parkinson's disease [address] [facility] ([facility] ) (Primary Dx) Drive [address] [place] [phone] (Wo rk) Social History Tobacco Use Types Packs/Day Years Used Date Smoking Tobacco: Never Assessed Sex Assigned at Date Recorded Not on file documented as of this encounter Last Filed Vital Signs Vital Sign Reading Time Taken Comments Blood Pressure 114/60 09/01/2011 10:31 AM CDT Pulse 72 09/01/2011 10:31 AM CDT Temperature - - Respiratory Rate - - Oxygen Saturation - - Inhaled Oxygen Concentration - - Weight 70 kg (154 lb 6.4 oz) 09/01/2011 10:28 AM CDT Height - - Body Mass Index - - documented in this encounter Patient Instructions Patient InstructionsParris Lucas MD - 09/01/2011 11:04 AM CDT keep movin! Try taking just one amantadine, either in the morning or at noon Return in 6 months documented in this encounter Progress Notes Parris Lucas MD - 09/01/2011 11:12 AM CDT [facility] Follow-up Examination [facility] [place] [address] , SUBJECTIVE: Chief Complaint Patient presents with ??? Follow-up Parkinson's disease diagnosed 2006 Current concerns and update: returns for followup. She is doing pretty well, but feels a little lightheaded, more often in the afternoon than other times. The lightheadedness may occur sitting or standing. She knows she doesn't drink enough fluids. Amantadine has helped the tendency to sway when she stands. Past Medical History Update: No past medical history on file. Adverse Drug Reactions: Allergies Allergen Reactions ??? Penicillins LW Reaction: Fever Current Medications: Reviewed today and updated on Health Profile in [facility]. Current outpatient prescriptions ordered prior to encounter Medication Sig Dispense Refill ??? amantadine (SYMMETREL) 100 mg capsule Take 1 capsule by mouth 2 times daily. 8am and noon 60 capsule 12 ??? carbidopa-levodopa (SINEMET CR) 50-200 mg per tablet Take 1 tablet by mouth. 1 every 4 hours around the clock, 6 doses/day 540 tablet 4 ??? carbidopa-levodopa (SINEMET) 25-100 mg per tablet Take 1 tablet by mouth 5 times daily. 1 in am and 1 up to qid prn 450 tablet 4 ??? docusate sodium (COLACE) 100 mg capsule Take 1 capsule by mouth daily (every 24 hours). LW Addl Instr:Indicated for: Stool Softener 180 3 ??? Ergocalciferol, Vitamin D2, (VITAMIN D) 400 unit Tab Take by mouth daily (every 24 hours). ??? folic acid-vit B6-vit B12 (FOLTX) 2.5-25-2 mg tablet Take 1 tablet by mouth daily (every 24 hours). 90 3 ??? Mjipd-0-DDO-EPA-Fish Oil 805-1,000 mg Cap Take 1 capsule by mouth daily (every 24 hours). ??? polyethylene glycol (MIRALAX) 17 gram/dose powder Take 17 g by mouth daily (every 24 hours). LW Addl Instr:Dissolve each dose in at least 8 ounces of fluid and drink. 255 12 Family History Update: No family history on file. Social History Update: no specific issues Review of Systems: dizziness, constipation, urinary frequency OBJECTIVE: Vital Signs: weight is 70.035 kg (154 lb 6.4 oz). Her blood pressure is 114/60 and her pulse is 72. . Unified Parkinson's Disease Rating Scale (Part 2) Functional Score (maximum 52): 9 General: beautifully dressed Neurologic exam: voice quality is normal animated gestures more with the R than the L no tremor, a little dyskinesia--head bobbing and hand movement, but less than before ASSESSMENT/PLAN: Stage 2 Parkinson's disease, stable. No medication changes needed; I gave her permission to take 1 amantadine in a day instead of 2. Return in 6 months. PCQ survey. we discussed exercise, medications, etc. Total time: 25 minutes, 20 minutes discussion Send a copy of note to: Dr. Prakash Pérez, [facility], [address] [place] [address] Parris Lucas MD 10:55 AM 09/01/2011 documented in this encounter Plan of Treatment Upcoming Encounters Date Type Specialty Care Team Description 06/08/2022 Appointment Neurology Parris Lucas MD [address] [facility] [address] [facility] [address] [address] (Wo rk) documented as of this encounter Visit Diagnoses Diagnosis Parkinson's disease (HRC) - Primary documented in this encounter Care Teams Final Tester Relationship Specialty Start Date End Date Unassigned, Provider PCP - General 03/13/00 03/16/14 [address] [place] [address] documented as of this encounter
--- OUTSIDE RECORDS SUMMARY | 2021-12-14 22:55 | XMS_ITS | Encounter Summary ---
:1955 Author Organization [facility] Address [address] [place] [address] Care Team Providers Name Role Phone Unassigned, Provider Primary Care Provider Unavailable Encounter Details Date Type Department Care Team Description 09/17/2010 Notes/Orders [place] Parris Lucas MD [address] [place], [place] [address] [address] [facility] N [phone] (Wo rk) Social History Tobacco Use Types Packs/Day Years Used Date Smoking Tobacco: Never Assessed Sex Assigned at Date Recorded Not on file documented as of this encounter Plan of Treatment Upcoming Encounters Date Type Specialty Care Team Description 06/08/2022 Appointment Neurology Parris Lucas MD [address] [facility] [address] [facility] N [phone] (Wo rk) documented as of this encounter Visit Diagnoses Not on filedocumented in this encounter Care Teams Gear Tooth Grinding Machine Operator Relationship Specialty Start Date End Date Unassigned, Provider PCP - General 03/13/00 03/16/[address] [place] [phone] documented as of this encounter
--- OUTSIDE RECORDS SUMMARY | 2021-12-14 22:55 | XMS_ITS | Encounter Summary ---
:1955 Author Organization [facility] Address [address] [place] [address] Care Team Providers Name Role Phone Unassigned, Provider Primary Care Provider Unavailable Encounter Details Date Type Department Care Team Description 04/28/2010 PN Conversion Only [facility] NEUROLOGY Parris Lucas MD [address] [facility] 39[address] [facility] [address] [place] [address] [phone] (Wo rk) Social History Tobacco Use Types Packs/Day Years Used Date Smoking Tobacco: Never Assessed Sex Assigned at Date Recorded Not on file documented as of this encounter Plan of Treatment Upcoming Encounters Date Type Specialty Care Team Description 06/08/2022 Appointment Neurology Parris Lucas MD [address] [facility] [address] [facility] N [address] (Wo rk) documented as of this encounter Visit Diagnoses Not on filedocumented in this encounter Care Teams Equipment Planner Relationship Specialty Start Date End Date Unassigned, Provider PCP - General 03/13/00 03/16/14 [address] [place] [address] documented as of this encounter
--- OUTSIDE RECORDS SUMMARY | 2021-12-14 22:55 | XMS_ITS | Encounter Summary ---
:1955 Author Organization [facility] Address [address] [place] [address] Care Team Providers Name Role Phone Unassigned, Provider Primary Care Provider Unavailable Reason for Visit Reason Comments Recheck Encounter Details Date Type Department Care Team Description 10/08/2010 Office Visit [place] [facility] Parris Lucas MD Parkinson's disease [facility] [place] ([facility] ) (Primary Dx) Drive [address] [place] [address] [phone] (Wo rk) Social History Tobacco Use Types Packs/Day Years Used Date Smoking Tobacco: Never Assessed Sex Assigned at Date Recorded Not on file documented as of this encounter Last Filed Vital Signs Vital Sign Reading Time Taken Comments Blood Pressure 90/62 10/08/2010 8:50 AM CDT Pulse 72 10/08/2010 8:50 AM CDT Temperature - - Respiratory Rate - - Oxygen Saturation - - Inhaled Oxygen Concentration - - Weight 68.9 kg (152 lb) 10/08/2010 8:49 AM CDT Height - - Body Mass Index - - documented in this encounter Patient Instructions Patient InstructionsParris Lucas MD - 10/08/2010 9:22 AM CDT 1. change how you take PD meds: take sinemet CR 50/200 1 pill every 4 hours around the clock take 1 sinemet 25/100 in the morning with the first dose of CR sinemet take 1/2-1 sinemet 25/100 up to 3-4 times a day any time as a kicker documented in this encounter Progress Notes Parris Lucas MD - 10/08/2010 9:53 AM CDT [facility] Follow-up Examination SUBJECTIVE Current concerns and update: returns for followup. She is now taking sinemet 25/100 2.5 pills at 0-48-2-6-10-2, and a CR sinemet 50/200 during the night. She is exercising, on disability now. Managing household affairs OK. Past Medical History Update: No past medical history on file. Adverse Drug Reactions: Allergies Allergen Reactions ??? Penicillins LW Reaction: Fever Current Medications: Reviewed today and updated on Health Profile in [facility]. Current outpatient prescriptions ordered prior to encounter Medication Sig Dispense Refill ??? DISCONTD: carbidopa-levodopa (SINEMET) 25-100 mg per tablet Take 2.5 tablets by mouth. LW Comment:takes 3-4x/day LW Addl Instr:Indicated for: Parkinson Disease 900 3 ??? docusate sodium (COLACE) 100 mg capsule Take 1 capsule by mouth daily (every 24 hours). LW Addl Instr:Indicated for: Stool Softener 180 3 ??? DISCONTD: drug not in computer LW Comment:superdigestive enzymes-w/meals ??? DISCONTD: drug not in computer LW Comment:ultra probiotics ??? DISCONTD: drug not in computer 1 each. LW Comment:physical therapy LW Addl Instr:eval and treat for exercise program for Parkinson's disease 1 ??? Ergocalciferol, Vitamin D2, (VITAMIN D) 400 unit Tab Take by mouth daily (every 24 hours). ??? folic acid-vit B6-vit B12 (FOLTX) 2.5-25-2 mg tablet Take 1 tablet by mouth daily (every 24 hours). 90 3 ??? DISCONTD: op medications reviewed LW Comment:per pt ??? polyethylene glycol (MIRALAX) 17 gram/dose powder Take 17 g by mouth daily (every 24 hours). LW Addl Instr:Dissolve each dose in at least 8 ounces of fluid and drink. 255 12 Family History Update: No family history on file. Social History Update: lives in a private home Functional concerns: work: disability; driving: no concerns ; financial compliance manager: no concerns; falls: no device needed Review of Systems: balance concerns, urinary urgency, constipation OBJECTIVE: Vital Signs: weight is 68.947 kg (152 lb). Her blood pressure is 90/62 and her pulse is 72. . Unified Parkinson's Disease Rating Scale (Part 2) Functional Score (maximum 52): 8 General: looks fit and well-dressed Neurologic exam: mild truncal dyskinesia. No tremor. Moves briskly and freely, mild swaying as she stand, but no postural instability to deflection. Hand and finger movements are low in amplitude but done quickly. cognition is normal in all domains. ASSESSMENT/PLAN: Stage 2 PD, stable. We did decide to revamp her medication schedule, so that she will take CR sinemet 50/200 1 pill every 4 hours up to 6/day, with IR sinemet 25/100sprinkled in as needed, trying to avoid peak dose dyskinesias and give smoother symptom control. We can go back to the previous schedule if this doesn't work. No other big issues at the moment. She did successfully get onsocial security disability. Return in 6 months Total time: 25 min, 20 minutes discussion about medications and symptoms Send a copy of note to: Dr. Prakash Pérez, [facility], [address] [place] [address] Daniela Prakash RN - 10/08/2010 8:46 AM CDT NPF Registry today. Cognition: Recall 5/5, delay 4/5 Animal naming 12 + Exercise 3 hours a week. documented in this encounter Plan of Treatment Upcoming Encounters Date Type Specialty Care Team Description 06/08/2022 Appointment Neurology Parris Lucas MD [address] [facility] [address] [place] [phone] (Wo rk) documented as of this encounter Visit Diagnoses Diagnosis Parkinson's disease (HRC) - Primary documented in this encounter Care Teams Cognos Report Developer Relationship Specialty Start Date End Date Unassigned, Provider PCP - General 03/13/00 03/16/14 [address] [place] [address] documented as of this encounter
--- OUTSIDE RECORDS SUMMARY | 2021-12-14 22:55 | XMS_ITS | Encounter Summary ---
:1955 Author Organization [facility] Address [address] [place] [address] Care Team Providers Name Role Phone Unassigned, Provider Primary Care Provider Unavailable Encounter Details Date Type Department Care Team Description 07/08/2010 PN Conversion Only CONVERSION CONVERSION Social History Tobacco Use Types Packs/Day Years Used Date Smoking Tobacco: Never Assessed Sex Assigned at Date Recorded Not on file documented as of this encounter Plan of Treatment Upcoming Encounters Date Type Specialty Care Team Description 06/08/2022 Appointment Neurology Parris Lucas MD [address] [facility] [address] [facility] [place] [address] (Wo rk) documented as of this encounter Visit Diagnoses Not on filedocumented in this encounter Care Teams Cytopathologist Relationship Specialty Start Date End Date Unassigned, Provider PCP - General 03/13/00 03/16/[address] [place] [phone] documented as of this encounter
--- OUTSIDE RECORDS SUMMARY | 2021-12-14 22:55 | XMS_ITS | Encounter Summary ---
:1955 Author Organization [facility] Address [address] [place] [address] Care Team Providers Name Role Phone Unassigned, Provider Primary Care Provider Unavailable Encounter Details Date Type Department Care Team Description 06/09/2011 Notes/Orders [place] [facility] Parris Lucas MD Parkinson's disease [address] [facility] ([facility] ) (Primary Dx) [address] [place] [phone] (Wo rk) Social History Tobacco Use Types Packs/Day Years Used Date Smoking Tobacco: Never Assessed Sex Assigned at Date Recorded Not on file documented as of this encounter Progress Notes Parris Lucas MD - 06/09/2011 10:36 AM CDT she was turned down for the research study because she was too good (Stage 2, needs to be 2.5 for the study). the concern is end-of-dose wearing off, and I see dyskinesia. We discussed the various options for treating wearing off in this circumstance (going to 3 hour sinemet dosing, adding comtan, adding an agonist, MAO inhibitor, amantadine), and elected to try her on amantadine 100mg in the am increasing to 100mg am and noon in 2-3 weeks if tolerated/needed. I should see her back in about 2 months. We discussed the Neupro patch as another alternative depending on how things go--it should be out this summer sometime. documented in this encounter Plan of Treatment Upcoming Encounters Date Type Specialty Care Team Description 06/08/2022 Appointment Neurology Parris Lucas MD [address] [place] [address] [facility] [address] (Wo rk) documented as of this encounter Visit Diagnoses Diagnosis Parkinson's disease (HRC) - Primary documented in this encounter Care Teams Sales And Service Engineer Relationship Specialty Start Date End Date Unassigned, Provider PCP - General 03/13/00 03/16/[address] [place] [address] documented as of this encounter
--- OUTSIDE RECORDS SUMMARY | 2021-12-14 22:55 | XMS_ITS | Encounter Summary ---
:1955 Author Organization [facility] Address [address] [place] [address] Care Team Providers Name Role Phone Unassigned, Provider Primary Care Provider Unavailable Reason for Visit Reason Comments Other Encounter Details Date Type Department Care Team Description 07/09/2010 Telephone [facility] Antonio Dennis MD Other [address] [facility] [address] [place] [address] [address] [place] [address] (Wo rk) Social History Tobacco Use Types Packs/Day Years Used Date Smoking Tobacco: Never Assessed Sex Assigned at Date Recorded Not on file documented as of this encounter Progress Notes Daniela Zapata RN - 07/09/2010 1:29 PM CDT Phone Note filed by Daniela Zapata RN at 07/12/101720 Author: Daniela Zapata RN Service: (none) Author Type: Registered Nurse Filed: 07/12/101720 Note Time: 07/09/10 1329 Status: Addendum Talent Acquisition Operations Manager: Daniela Zapata RN (Registered Nurse) Related Notes: Original Note by Tunde Potter (Physician) filed at 07/12/10 172 RVM from patient after cancelling her scheduled appt.today. States she went back to old way she was taking her medications. Sinemet 25/100 2.5 tablets five times a day. Attempted to call back to discuss, no answer and no voicemail to leave a message. [phone]. Created on 09Jul2010 1:29pm by DANIELA ZAPATA On 12Jul2010 8:50am ANTONIO DENNIS wrote: I think this message was meant for you Africa ovalles Acknowledged by ANTONIO DENNIS on 8:50am Acknowledged by AFRICA LUCAS on 9:40am [employer]OR CLOUD TRANSFORMATION documented in this encounter Plan of Treatment Upcoming Encounters Date Type Specialty Care Team Description 06/08/2022 Appointment Neurology Africa Lucas MD [address] [facility] [address] [facility] [address] (Wo rk) documented as of this encounter Visit Diagnoses Not on filedocumented in this encounter Care Teams Ship Boat Or Barge Mate Relationship Specialty Start Date End Date Unassigned, Provider PCP - General 03/13/00 03/16/[address] [place] [address] documented as of this encounter
--- OUTSIDE RECORDS SUMMARY | 2021-12-14 22:55 | XMS_ITS | Encounter Summary ---
:1955 Author Organization [facility] Address [address] [place] [address] Care Team Providers Name Role Phone Unassigned, Provider Primary Care Provider Unavailable Reason for Visit Reason Comments Refill Encounter Details Date Type Department Care Team Description 12/06/2011 Telephone [place] Fior Daniel, RN Refill [address] [place], [place] [address] Social History Tobacco Use Types Packs/Day Years Used Date Smoking Tobacco: Never Assessed Sex Assigned at Date Recorded Not on file documented as of this encounter Nursing Notes Parris Lucas MD - 12/06/2011 12:50 PM CDT ok, thanks Fior Daniel, RN - 12/06/2011 11:14 AM CDT Authorized refills for sinemet cr 50/200. documented in this encounter Plan of Treatment Upcoming Encounters Date Type Specialty Care Team Description 06/08/2022 Appointment Neurology Parris Lucas MD [address] [facility] [address] [facility] N [id number] (Wo rk) documented as of this encounter Visit Diagnoses Not on filedocumented in this encounter Care Teams Fish Seiner Relationship Specialty Start Date End Date Unassigned, Provider PCP - General 03/13/00 03/16/[address] [place] [address] documented as of this encounter
--- OUTSIDE RECORDS SUMMARY | 2021-12-14 22:55 | XMS_ITS | Encounter Summary ---
:1955 Author Organization [facility] Address [address] [place] [address] Care Team Providers Name Role Phone Unassigned, Provider Primary Care Provider Unavailable Reason for Visit Reason Comments WEAKNESS,EXTREMITIES Balance/gait Dysfunction DIZZINESS Encounter Details Date Type Department Care Team Description 06/03/2011 Office Visit [place] [facility] Parris Lucas MD Parkinson's disease [facility] [address] ([facility] ) (Primary Dx) Drive [facility] [address] [place] [phone] (Wo rk) Social History Tobacco Use Types Packs/Day Years Used Date Smoking Tobacco: Never Assessed Sex Assigned at Date Recorded Not on file documented as of this encounter Last Filed Vital Signs Vital Sign Reading Time Taken Comments Blood Pressure 92/60 06/03/2011 12:46 PM CDT Pulse 88 06/03/2011 12:46 PM CDT Temperature - - Respiratory Rate - - Oxygen Saturation - - Inhaled Oxygen Concentration - - Weight 68 kg (150 lb) 06/03/2011 12:45 PM CDT Height - - Body Mass Index - - documented in this encounter Progress Notes Parris Lucas MD - 06/03/2011 1:43 PM CDT [facility] ANNUAL Follow-up Examination [facility] [place] [address] SUBJECTIVE: Chief complaint: Chief Complaint Patient presents with ??? Extremity Weakness discomfort and weakness in both legs, mainly left. ??? Gait Problem freezing ??? Dizziness low bp causing light headedness Update and other concerns: returns for followup. She has had low blood pressure, but is managing that with gatorade adn tomato juice. She brought a few BP readings, most of which are >100. Past Medical History Update: no new issues Adverse Drug Reactions: Pt's Adverse Drug Reactions were reviewed today, and updated on the Health Profile of [facility]. Current Medications: Reviewed today and updated on Health Profile in [facility]. Current outpatient prescriptions ordered prior to [...] daily (every 24 hours). 90 3 ??? Xtwub-3-LLZ-EPA-Fish Oil 805-1,000 mg Cap Take 1 capsule [...] in private home with her work status: on disability family involvement: is not terribly supportive alcohol/tobacco: none driving status: limits appropriately financial auditor: no concerns Advance directive: has one in place exercise: goes to the fitness center 3/week safety concerns: no major issues other: none Review of Systems: cognitive: no concerns autonomic: constipation, urinary urgency psychiatric: no mood issues, occasional anxiety sleep: sleep is OK falls/assistive device: no falls, no device, but she does have some freezing on initiation, particularly in the evenings dyskinesia/wearing off: she has both, see above skin: not discussed weight/nutrition: stable other: none OBJECTIVE: Vital Signs: BP 92/60 Pulse 88 Wt 68.04 kg (150 lb) Unified Parkinson's Disease Rating Scale (Part 2) Functional Score (maximum 52): 13 General: she is well dressed and groomed Neurologic exam: The mental status was normal in all spheres: attention, concentration, memory, fund of knowledge, and language. normal speech mild truncal dyskinesia she rises easily and walks well, with a little dyskinesia in the gait no tremor ASSESSMENT: Stage 2 Parkinson's disease with notable motor fluctuation, mild/manageable orthostatic hypotension.We discussed possibly participating in a research trial of a novel drug to treat wearing off in PD. Alternatively, we could go to 3 hours dosing on the sinemet, add mirapex or selegiline or amantadine.I will have her talk with the research nurse first, and go to one of these other choices if she decides not to participate in a research trial. She does not need a device or PT at this point, and does not need medication for orthostatic hypotension. She met with the research nurse, who informs me that she will return for a screening visit on June 08. PLAN: medical and surgical treatment options: no changes rehabilitation options: not needed participation in research: see above; she will consider participating in a trial of a new drug for wearing off safety concerns counseling: none return in 6 months or as needed for the research study Total time: 25 minutes, Counseling time: 15 minutes about issues described in Assessment and Plan Send copy to: Dr. Prakash Pérez, [facility], [address] [place] [address] Parris Lucas MD 12:54 PM 06/03/2011 *Note: underlined items are the 10 items included in the 2011 [place] [employer] Parkinson's Disease Practice Parameters for the annual examination of a person with Parkinson's disease documented in this encounter Plan of Treatment Upcoming Encounters Date Type Specialty Care Team Description 06/08/2022 Appointment Neurology Parris Lucas MD [address] [facility] [address] [place] [address] (Wo rk) documented as of this encounter Visit Diagnoses Diagnosis Parkinson's disease (HRC) - Primary documented in this encounter Care Teams Sports Cartoonist Relationship Specialty Start Date End Date Unassigned, Provider PCP - General 03/13/00 03/16/[address] [place] [address] documented as of this encounter
--- OUTSIDE RECORDS SUMMARY | 2021-12-14 22:55 | XMS_ITS | Encounter Summary ---
:1955 Author Organization [facility] Address [address] [place] [address] Care Team Providers Name Role Phone Unassigned, Provider Primary Care Provider Unavailable Reason for Visit Reason Comments Other Encounter Details Date Type Department Care Team Description 08/12/2010 Telephone CONV NEUROLOGY Africa Lucas MD Other [address] [place] [address] [address] [facility] [address] (Wo rk) Social History Tobacco Use Types Packs/Day Years Used Date Smoking Tobacco: Never Assessed Sex Assigned at Date Recorded Not on file documented as of this encounter Progress Notes Darío Smith RN - 08/12/2010 12:08 PM CDT Phone Note filed by aDrío Smith RN at 08/13/10 3654 Author: Darío Smith RN Service: (none) Author Type: Registered Nurse Filed: 08/13/10 408 Note Time: 08/12/10 1208 Status: Addendum Candy Separator Hard: Darío Smith RN (Registered Nurse) Related Notes: Original Note by Imr Tariq (Physician) filed at 08/13/10 5929 Received message from patient [phone] asking that take over prescribing her Foltx that was previously handeled by [facility]. Did not leave a pharmacy number, will call her after your response. Please send this message back to Daniela, I will be out until Monday. Created on 12Aug2010 12:08pm by DARÍO SMITH T On 12Aug2010 2:59pm AFRICA LUCAS wrote: sure, OK to prescribe Foltx 3 months worth with 1 yr of refills Acknowledged by AFRICA LUCAS on 2:59pm On 13Aug2010 11:25am PERFECTO PACHECO wrote: Call to patient. Left message for her to call back with pharmacy name and number and quantity (30 or 990 day) she desires. On 13Aug2010 2:39pm ISABELLE CLAY wrote: pt called with message that she would like a 90 day supply and uses [facility] [place]. [facility] [place] as in last word . Acknowledged by DANIELA ZAPATA on 3:42pm ATTE OPERATOR documented in this encounter Plan of Treatment Upcoming Encounters Date Type Specialty Care Team Description 06/08/2022 Appointment Neurology Africa Lucas MD [address] [facility] [address] [place] [address] (Wo rk) documented as of this encounter Visit Diagnoses Not on filedocumented in this encounter Care Teams Vice President Risk Management Relationship Specialty Start Date End Date Unassigned, Provider PCP - General 03/13/00 03/16/[address] [place] [address] documented as of this encounter
--- OUTSIDE RECORDS SUMMARY | 2021-12-14 22:55 | XMS_ITS | Encounter Summary ---
:1955 Author Organization [facility] [employer] Address [address] [place] [address] Care Team Providers Name Role Phone Unassigned, Provider Primary Care Provider Unavailable Encounter Details Date Type Department Care Team Description 04/28/2010 Hospital Encounter [facility] Sarah Celeste MA [address] [place] [address] Social History Tobacco Use Types Packs/Day Years Used Date Smoking Tobacco: Never Assessed Sex Assigned at Date Recorded Not on file documented as of this encounter Medications at Time of Discharge Medication Sig Dispensed Refills Start Date End Date carbidopa-levodopa (AKA Take 2.5 tablets by 900 3 02/201110/08/2010 SINEMET) 25-100 MG tablet mouth. LW Comment:takes 3-4x/day LW Addl Instr:Indicated for: Parkinson Disease DRUG NOT IN COMPUTER LW Comment:ultra 0 0 10/08/2010 probiotics DRUG NOT IN COMPUTER LW 0 11/12/200907/2010 Comment:superdigesti ve enzymes-w/meals DRUG NOT IN COMPUTER 1 each. LW 1 0 12/18/200807/2010 Comment:physical therapy LW Addl Instr:eval and treat for exercise program for Parkinson's disease qr-rclrraukut-phxprvmtjrt Take 1 tablet by 90 3 12/0408/13/2010 min (FOLTX) 2.5 mg-25 mouth daily (every mg-2 mg tablet 24 hours). docusate sodium (AKA Take 1 capsule by 180 3 12/19/19 09 05/31/2013 COLACE) 100 MG capsule mouth daily (every 24 hours). LW Addl Instr:Indicated for: Stool Softener Ergocalciferol (VITAMIN Take by mouth daily 0 02/07/2012 D2) 400 UNITS TABS (every 24 hours). polyethylene glycol 3350 Take 17 g by mouth 255 12 05/31/2013 (AKA GLYCOLAX) daily (every 24 powderIndications: hours). LW Addl DUSTIN ZAPATAY Waldemar Lashanda Instr:Dissolve each Jan 17, 2013 10:05 AM prn dose in at least 8 ounces of fluid and drink. documented as of this encounter Progress Notes Parris Lucas MD - 04/28/2010 12:01 AM CST NAME: DARLENE DREW MR#: [id number] ACCT: [id number] VISIT: [id number] DICTATING CLINICIAN: Parris Lucas MD CONFIRM #: [id number] LOC: 223 CLINIC PROGRESS NOTE DATE OF VISIT: 04/28/2010 : 1955 This 54-year-old patient returns to [facility] for followup of her Parkinson's disease. 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 She is also noticing some wearing off of her medication effects so that she needs to take medication every 4 hours. She is wondering whether it would be healthier to take controlled release Sinemet rather than immediate release Sinemet on a 4- hour schedule, which I think it might. No other new health problems. REVIEW OF SYSTEMS: Positive for constipation, sleep disturbance, urinary urgency, anxiety and depression. She has recently also been having some nausea, which is I think I relatively minor issue. EXAM: VITAL SIGNS: Blood pressure 120/74, sitting; 110/70, standing. Weight 150, which is down 5 pounds. Pulse 60. Her UPDRS functional score is 11. She looks healthy. She talks well, although her voice is a little bit quiet. She does have a fairly persistent but mild resting tremor in both hands. She has an impassive facial appearance. She arises from a chair independently without using her hands. Her posture is a little bit stiff, but not stooped. Her gait was mildly but clearly parkinsonian without freezing or festination, and the bradykinesia was 2+. ASSESSMENT: Stage 2 Parkinson's disease with some end-of-dose wearing off. We will switch her to Sinemet CR 50/200 one tablet at 6, 10, 2, 6 and 10, along with 1-2 immediate release tablets with the 6 a.m. dose and an additional 1/2-tablet up to twice a day as needed of the immediate release Sinemet. She will call in a week or two and let me know if this new schedule is working. I did aids counselor her to take her pills on a 4-hour schedule and not try to lengthen it out, particularly as she will then lose the momentum that she would have if she took her medication on schedule. She is exercising 3 days a week which is good. She continues to live independently with her in a private home and is able to drive and manage finances, and does not need an assistive device. She will return in 5-6 months. Twenty-five minutes total time, 20 minutes of discussion. MAN:MEDQ C: CONFIRM #: [id number] ION CHIEF documented in this encounter Plan of Treatment Upcoming Encounters Date Type Specialty Care Team Description 06/08/2022 Appointment Neurology Parris Lucas MD [address] [facility] [address] [facility] N [address] (Wo rk) documented as of this encounter Visit Diagnoses Not on filedocumented in this encounter Care Teams Rehab/Pre Vocational Counselor Relationship Specialty Start Date End Date Unassigned, Provider PCP - General 03/13/00 03/16/14 [address] [place] [address] documented as of this encounter
--- OUTSIDE RECORDS SUMMARY | 2021-12-14 22:55 | XMS_ITS | Encounter Summary ---
:1955 Author Organization [email or web address] Address [address] [place] [address] Care Team Providers Name Role Phone Unassigned, Provider Primary Care Provider Unavailable Reason for Visit Reason Comments Letter Encounter Details Date Type Department Care Team Description 11/16/2011 Notes/Orders [facility] Chelsie Toribio, RN [address] [place], [place] [address] Social History Tobacco Use Types Packs/Day Years Used Date Smoking Tobacco: Never Assessed Sex Assigned at Date Recorded Not on file documented as of this encounter Progress Notes Daniela Prakash RN - 11/16/2011 10:53 AM CDT patient called today and wants to know if paperwork was completed. Informed her it was sent yesterday in the mail. Chelsie Toribio RN - 11/16/2011 8:31 AM CDT Mailed Medical Report Continuation Process paperwork filled out by Dr. Lucas to: Darlene Deniserachael [phone] [place] [phone] Copy sent to [facility] [place]. documented in this encounter Plan of Treatment Upcoming Encounters Date Type Specialty Care Team Description 06/08/2022 Appointment Neurology Parris Lucas MD [address] [facility] [address] [facility] [address] (Wo rk) documented as of this encounter Visit Diagnoses Not on filedocumented in this encounter Care Teams Tool Checker Relationship Specialty Start Date End Date Unassigned, Provider PCP - General 03/13/00 03/16/[address] [place] [address] documented as of this encounter
--- OUTSIDE RECORDS SUMMARY | 2021-12-14 22:55 | XMS_ITS | Encounter Summary ---
:1955 Author Organization [facility] Address [address] [place] [address] Care Team Providers Name Role Phone Unassigned, Provider Primary Care Provider Unavailable Encounter Details Date Type Department Care Team Description 07/09/2010 Hospital Encounter RELIGIOUS CONVERSION Jeanmarie Lucas MD [address] [facility] [address] [place], [place] [id number] (Wo rk) Social History Tobacco Use Types [...] treat for exercise program for Parkinson's disease ke-nmquhpqwcj-tjcjpsikypu Take 1 tablet by 90 3 12/0408/13/2010 min (FOLTX) 2.5 mg-25 mouth daily (every mg-2 mg tablet 24 hours). unknown medication LW Comment:per pt 0 04/28/2010 10/08/2010 docusate sodium (AKA Take 1 capsule by 180 3 12/19/19 09 05/31/2013 COLACE) 100 MG capsule mouth daily (every 24 hours). LW Addl Instr:Indicated for: Stool Softener Ergocalciferol (VITAMIN Take by mouth daily 0 02/07/2012 D2) 400 UNITS TABS (every 24 hours). nc-gavoxftfun-wsbaqxqhzsd Take 1 tablet by 90 3 08/0409/09/2011 min (FOLTX) 2.5 mg-25 mouth daily (every mg-2 mg tablet 24 hours). polyethylene glycol 3350 Take 17 g by mouth 255 12 05/31/2013 (AKA GLYCOLAX) daily (every 24 powderIndications: hours). LW ALEJANDRA Mcmillan Instr:Dissolve each Jan 17, 2013 10:05 AM prn dose in at least 8 ounces of fluid and drink. documented as of this encounter Plan of Treatment Upcoming Encounters Date Type Specialty Care Team Description 06/08/2022 Appointment Neurology Parris Lucas MD [address] [facility] [address] [facility] [address] (Wo rk) documented as of this encounter Visit Diagnoses Not on filedocumented in this encounter Care Teams Charge Out Clerk Relationship Specialty Start Date End Date Unassigned, Provider PCP - General 03/13/00 03/16/[address] [place] [address] documented as of this encounter
--- OUTSIDE RECORDS SUMMARY | 2021-12-14 22:55 | XMS_ITS | Encounter Summary ---
:1955 Author Organization [facility] Address [address] [place] [address] Care Team Providers Name Role Phone Unassigned, Provider Primary Care Provider Unavailable Reason for Visit Reason Comments Other Encounter Details Date Type Department Care Team Description 08/16/2010 Telephone CONV NEUROLOGY Africa Lucas MD Other [address] [place] [address] [address] [facility] [address] (Wo rk) Social History Tobacco Use Types Packs/Day Years Used Date Smoking Tobacco: Never Assessed Sex Assigned at Date Recorded Not on file documented as of this encounter Progress Notes Darío Smith RN - 08/16/2010 4:15 PM CDT Phone Note filed by Darío Smith RN at 08/18/10 8247 Author: Darío Smith RN Service: (none) Author Type: Registered Nurse Filed: 08/18/101134 Note Time: 08/16/10 161 Status: Addendum Material Handler 1St Shift: Darío Smith RN (Registered Nurse) Related Notes: Original Note by Tunde Potter (Physician) filed at 08/18/10 7861 Darlene called [phone], said she faxed you some paperwork last week for disability, none of us have seen it and wonder if it was put in your mailbox by front office staff. Did you get it, patient anxious to know otherwise will need to resend. Created on 16Aug2010 4:15pm by DARÍO SMITH T On 16Aug2010 11:03pm AFRICA LUCAS wrote: IT'S in my stack of stuff, I will probably get to it tomorrow. Acknowledged by AFRICA LUCAS on 11:03pm On 17Aug2010 8:50am ALEJANDRA ZAPATA wrote: Spoke to patient. When forms are completed, patient requests forms to be mailed to home address instead of faxed. Acknowledged by ALEJANDRA ZAPATA on 8:50am Acknowledged by AFRICA LUCAS on 9:36am On 18Aug2010 11:31am ALEJANDRA ZAPATA wrote: Disability paperwork mailed to home address as requested by patient. BLADE BENDER FURNACE TENDER documented in this encounter Plan of Treatment Upcoming Encounters Date Type Specialty Care Team Description 06/08/2022 Appointment Neurology Africa Lucas MD [address] [place] [address] [address] (Wo rk) documented as of this encounter Visit Diagnoses Not on filedocumented in this encounter Care Teams Novelty Candy Maker Relationship Specialty Start Date End Date Unassigned, Provider PCP - General 03/13/00 03/16/14 [address] [place] [address] documented as of this encounter
--- OUTSIDE RECORDS SUMMARY | 2021-12-14 22:55 | XMS_ITS | Encounter Summary ---
:1955 [facility] Address [address] [place] [address] Care Team Providers Name Role Phone Unassigned, Provider Primary Care Provider Unavailable Reason for Visit Reason Comments Balance/gait Dysfunction Encounter Details Date Type Department Care Team Description 06/03/2011 Office Visit [place] [facility] Gabriela Mcbride Paral ysis agitans; Therapy L, PT Abnormality of gait; [address] Pers onal history of fall [address] [place], [place] [phone] Social History Tobacco Use Types Packs/Day Years Used Date Smoking Tobacco: Never Assessed Sex Assigned at Date Recorded Not on file documented as of this encounter Progress Notes Gabriela Mcbride, PT - 06/09/2011 2:32 PM CDT Physical Therapy Progress Note Time of Day: 3:30 pm Visit: 2 Subjective: -Mood: Pleasant. -Orientation: Alert. -Cooperation: Good. -Communication: Clear. -Support system present: friend stayed in lobby -Changes reported since last visit: had f/u visit with . Took pills at 2:00 but not quite on yet. C/o wearing off issues, thigh numbness during that time but not during on times. Expressed frustration that her was impatient during her freezing or off times, and didn't know how to help her during those times. Has more freezing with fatigue. Falls reported since last visit/circumstances: None. Objective: -Pain: mild knee pain L>R 4/10 at present. no pain in right knee at this time Treatment Today: -Neuromuscular Re-education: Static and dynamic standing balance activities. Variable base of support standing balance activity. Eyes open/closed standing balance activity. Compliant/noncompliant surface standing balance activity. Weight shift standing balance activity. Postural awareness and retraining. Amado Lambert Voice Training (LSVT) BIG exercises: Multidirectional Sustained Movements (seated).Multidirectional Repetitive Movements (standing). Functional Repetitive Movements. -Gait training: Indoor environment. -Assist: Verbal instruction. -Assistive device: Hiking pole. -Skilled cuing required: Big steps. Wider base of support. Safe turning strategies. Freezing strategies. Conscious attention of movement. -Therapeutic Activities: Sit to stand. Stand to sit. long discussion about freezing strategies, cueing strategies for , support group benefit, etc. Provided information from rescue project for carepartner cues, freezing cues. Worked extensively on turns/direction changes -Skilled teaching: Basic PD education re: symptoms and management. [facility] Programs [facility] Services. Exercise benefits related to PD. PD and its impact on automatic movement. Fall prevention. Home exercise program: demonstration, issued written materials, updated with exercises performed today. Activity recommendations. Equipment recommendation - hiking pole. Assessment -Motor Function: On. Freezing. -Impairments addressed in today's session: Hypokinesia. Strength deficits. Balance deficits. Gait pattern deficits. -Functional outcomes addressed during treatment session today and progress toward goals: appears somewhat anxious/frustrated about issues at home, motor fluctuations, fatigue/freezing issues. Advised to have attend a future PT session with her, to specifically address freezing strategies and carepartner cues. Patient indicated she would share the written information with him and pursue attending support groups. Will benefit from intermittent follow up to ensure she continues to manage the freezing appropriately. Gait velocity 3.22 ft/sec Plan f/u as needed in next 2-3 months, then d/c Procedures: Neuromuscular Re-education (CPT 73047) 15 minutes. Therapeutic Activities (CPT 33861) 30 minutes. Gait Training (CPT 72669) 15 minutes. Total Treatment Time: 60 Therapist: Gabriela Mcbride, PT, [facility], [address] *SH~REHAB~PTPARKPRG~ Shorthand Note completed on: 06/04/2011 2:30 PM documented in this encounter Plan of Treatment Upcoming Encounters Date Type Specialty Care Team Description 06/08/2022 Appointment Neurology Parris Lucas MD [address] [facility] [address] [facility] [id number] (Wo rk) documented as of this encounter Visit Diagnoses Diagnosis Paralysis agitans ([facility]) Paralysis agitans Abnormality of gait Personal history of fall documented in this encounter Care Teams Vein Access Technician Relationship Specialty Start Date End Date Unassigned, Provider PCP - General 03/13/00 03/16/[address] [place] [id number] documented as of this encounter
--- OUTSIDE RECORDS SUMMARY | 2021-12-14 22:56 | XMS_ITS | Encounter Summary ---
:1955 Author Organization [facility] Address [address] [place] [address] Care Team Providers Name Role Phone Unavailable Primary Care Provider Unavailable Encounter Details Date Type Department Care Team Description 05/27/2015 Ancillary Procedure Department of Oncology Social History Tobacco Use Types Packs/Day Years Used Date Smoking Tobacco: Never Assessed Sex Assigned at Date Recorded Not on file documented as of this encounter Plan of Treatment Not on filedocumented as of this encounter Procedures Procedure Name Priority Date/Time Associated Diagnosis Comme nts ONCOLOGY IMAGE EXAM Routine 05/27/2015 1:35 PM Re sults for this CDT procedure are i n the results section. documented in this encounter Results Non-Radiology Image-Oncology Image Exam (05/27/2015 1:35 PM CDT) Specimen (Source) Anatomical Location Collection Method / Collectio n Time Received Time / Laterality Volume Narrative IIMS - 08/09/2018 12:49 PM CDT This order has been created and auto-finalized to support the import of images acquired without order. The clini lila documentation to support these images can be found on the encounter geovani t produced images. Provider Not In System IMG NON RAD IMAGING PROCEDUR ES Performing Organization Address City/State/ZIP Code Phon e Number IIMS IIMS NA documented in this encounter Visit Diagnoses Not on filedocumented in this encounter
--- OUTSIDE RECORDS SUMMARY | 2021-12-14 22:56 | XMS_ITS | Encounter Summary ---
:1955 Author Organization [facility] Address [address] [place] [address] Care Team Providers Name Role Phone Unassigned, Provider Primary Care Provider Unavailable Encounter Details Date Type Department Care Team Description 03/03/2009 Hospital Encounter [facility] Gaby Hurst [address] [place] [address] Social History Tobacco Use Types Packs/Day Years Used Date Smoking Tobacco: Never Assessed Sex Assigned at Date Recorded Not on file documented as of this encounter Medications at Time of Discharge Medication Sig Dispensed Refills Start Date End Date carbidopa-levodopa (AKA Take 2.5 tablets by 240 12 SINEMET) 25-100 MG mouth. LW Comment:3-4 tablet times/day LW Addl Instr:Indicated for: Parkinson Disease DRUG NOT IN COMPUTER 1 each. LW 1 0 12/18/20080 07/2010 Comment:physical therapy LW Addl Instr:eval and treat for exercise program for Parkinson's disease gu-gpskjujeuw-tctrrsaqja Take 1 tablet by 90 3 12/1808/13/2010 mantilla (FOLTX) 2.5 mg-25 mouth daily (every 24 mg-2 mg tablet hours). docusate sodium (AKA Take 1 capsule by 180 3 12/19/19 09 05/31/2013 COLACE) 100 MG capsule mouth daily (every 24 hours). LW Addl Instr:Indicated for: Stool Softener polyethylene glycol 3350 Take 17 g by mouth 255 12 05/31/2013 (AKA GLYCOLAX) daily (every 24 powderIndications: hours). LW Addl ALEJANDRA ZAPATA Instr:Dissolve each Jan 17, 2013 10:05 AM dose in at least 8 prn ounces of fluid and drink. documented as of this encounter Progress Notes Parris Lucas MD - 03/03/2009 12:01 AM CST [facility] Follow-up Examination SUBJECTIVE Current concerns and update : This 53-year-old patient returns to [facility] for follow-up of her Parkinson's disease. She is accompanied this time by her sister. I saw her initially in December. Is concerned that she might be a little bit overtreated for her Parkinson's, as she is taking 2 1/2 Sinemet 25/100 pills 3 times a day and an additional 2 1/2 pills on an as-needed basis. I asked her to experiment with a little bit less medication to see whether she could get away with a lower dose at this early stage of her disease. She says that she felt poorly when she got back at all, and that she needs to feel normal at this stage in her life and is not fearful of dyskinesia. Her other main issue is GI discomfort. She feels bloating when she eats and has lost a substantial amount of weight. She had a burning feeling in her esophagus when she eats even prior to taking antiparkinson pills. She did not notice whether taking less Parkinson pills helped any of her GI symptoms are not. She did have severe constipation a while back, but feels that she has a bowel regimen that works for her at this point. Past Medical History Update : No other specific issues since I last saw her Adverse Drug Reactions: Penicillin caused fever Current Medications: Reviewed today and updated on Health Profile in [employer]. Includes Sinemet 25/100, 2 1/2 pills 3 times a day at 8,12 and 5, vitamin D, MiraLax, foltx, omeprazole, and Docusate. Family History Update: No new information to report Social History Update: No new issues Review of Systems: She endorses occasional constipation, occasional sleep disturbance, urinary frequency. OBJECTIVE: Vital Signs: Blood pressure 124/80 sitting, 102/ 76 standing, weight 165, pulse 64. UPDRS functional score 11. General: She was thin but not abnormally so. She was casually dressed, but appropriate. Neurologic exam : She had mild dyskinesia involving the head and neck primarily. There is no tremor. She did quite well on rapid alternating finger and hand movements. She chaparro from a chair easily, and walked briskly. Her postural stability was normal. ASSESSMENT: Stage II Parkinson's disease, with early dyskinesias. Because I had confronted her the last time about her therapeutic goals, it did not re-confront her about the short-term and long-term term goals this time around. I am concerned that she has dyskinesia already, which was one of my reasons for trying to get her to cut back a little on the Sinemet. She is happy with her level of function on the current dosing schedule. She is not interested in switching to Sinemet 25/250 tablets in order to consolidate her medication and to one pill. I did ask her to address her GI concerns with her clerk general or a GI specialist. Parkinson's would only indirectly impact on GI symptoms. Many patients with Parkinson's disease are constipated, but it sounds as though she has a good regimen for that at this point. Burning in the throat predated the use of Sinemet is probably not related to Parkinson's disease or to Sinemet. My other reason for having her cut back on the Sinemet dose was to see whether she had fewer GI symptoms such as bloating or early satiety with less Sinemet, but she didn't really make any observations along those lines unfortunately. So at this point I have to recommend that she address GI symptoms with someone other than the neurologist. PLAN: No medication changes. Follow up with primary care physician about GI symptoms. Return in 6 months. Barriers to care Total time : 25 minutes, 20 minutes of discussion CC: Dr. Prakash Pérez. [facility], [address] [place] [phone] *SH~DNS~PEM AL SERVICE LIAISON documented in this encounter Plan of Treatment Upcoming Encounters Date Type Specialty Care Team Description 06/08/2022 Appointment Neurology Parris Lucas MD [address] [place] [address] (Wo rk) documented as of this encounter Visit Diagnoses Not on filedocumented in this encounter Care Teams Brand Ambassador Relationship Specialty Start Date End Date Unassigned, Provider PCP - General 03/13/00 03/16/[address] [place] [phone] documented as of this encounter
--- OUTSIDE RECORDS SUMMARY | 2021-12-14 22:56 | XMS_ITS | Encounter Summary ---
:1955 Author Organization [facility] Address [address] [place] [address] Care Team Providers Name Role Phone Elsewhere, Pcp Primary Care Provider Unavailable Reason for Referral Outpatient (Routine) - Closed Specialty Diagnoses / Procedures Referred By Contact Refer red To Contact Diagnoses Pain Shoulder Right Sharad Velazquez M.D. [facility] Region Procedures DX Shoulder Right 2+ Views [address] [place] [phone] Referral ID Status Reason Start Date Expiration Date Visits Requ ested Visits Authorized [id number] Closed 11/26/2021 11/26/2022 1 1 Reason for Visit Reason Comments Pain Bone chip noted on x ray Consult Encounter Details Date Type Department Care Team Description 11/26/2021 Office Visit Department of Steven Velazquez Shoulder Right Orthopedic Surgery in [place] (Primary Dx) [facility] [address] [place] [phone] Social History Tobacco Use Types Packs/Day Years Used Date Smoking Tobacco: Never Sex Assigned at Date Recorded Not on file documented as of this encounter Last Filed Vital Signs Vital Sign Reading Time Taken Comments Blood Pressure - - Pulse 83 11/26/2021 1:30 PM CDT Temperature 36.9 ??C (98.4 ??F) 11/26/2021 1:30 PM CDT Respiratory Rate - - Oxygen Saturation 98% 11/26/2021 1:30 PM CDT Inhaled Oxygen Concentration - - Weight - - Height - - Body Mass Index - - documented in this encounter Consult Notes Sharad Velazquez M.D. - 11/26/2021 1:15 PM CDT Pain reported: Site 1 Pain Score: 6, Pain Location: Finger (Comment which one) (middle finger), PainDescriptors: Sharp, Pain Frequency: Intermittent, Clinical Progression: Not changed, (11/26/21 1330 : Laura Yousif, L.P.N.) Site 2 Pain Location 2: Shoulder, Pain Score 2: 7, Pain Descriptors 2: Aching, Pain Frequency 2: Constant/continuous, Clinical Progression 2: Gradually worsening, (11/26/21 1330 : Luara Yousif L.P.N.) REASON FOR CONSULT Darlene Drew is a 66 y.o. female who presents for evaluation of Pain of the Right Middle Finger (Bone chip noted on x ray) and Consult and is under the care of ELSEWHERE, PCP. HISTORY OF PRESENT ILLNESS Darlene is a 66-year-old woman, brought in this afternoon by her son. She has longstanding Parkinson's disease. She has a very limited ambulator. She is able to use a walker to ambulate from the lobby to the exam room. She does not think she can walk much further. She lives in a memory care unit. She presents today for evaluation of her right middle finger. She injured it approximately a month ago, when she tripped and fell against a cabinet. The finger has been swollen and stiff ever since that time. She points to the PIP joint. She states that she has had a recommendation to undergo surgery. She also wishes to have her right shoulder evaluated. She has had pain in her shoulder for a year. She blames on tripping and falling. She cannot remember the exact circumstances. Her shoulder feels swollen, she has a difficult time raising the arm. Current Outpatient Medications: acetaminophen (TYLENOL) 500 mg capsule, Take by mouth every 6 (six) hours as needed for pain., Disp: , Rfl: calcium carbonate (TUMS E-X) 750 mg (300 mg calcium) chewable tablet, Chew 1 tablet daily., Disp: ,Rfl: carbidopa-levodopa (SINEMET) 25-250 mg per tablet, Take 1 tab po at 7:05am, 9am, 11am, 1pm, 3:05pm and 7pm and 1/2 pill at 5pm, Disp: , Rfl: carbidopa-levodopa (SINEMET) 25-250 mg per tablet, Take 0.5 tablets by mouth daily. Take at 5 PM, Disp: , Rfl: kcbqmcgum-mzethcia-nkgkzjhcdg (STALEVO) 50-200-200 mg per tablet, Take 1 tablet by mouth at bedtime. Take at 9 PM, Disp: , Rfl: cholecalciferol (VITAMIN D3) 50 mcg (2,000 Unit) tablet, Take 50 mcg by mouth daily., Disp: , Rfl: denosumab (PROLIA) 60 mg/mL syringe, Inject 60 mg under the skin once., Disp: , Rfl: escitalopram (LEXAPRO) 20 mg tablet, Take 20 mg by mouth daily., Disp: , Rfl: fludrocortisone (FLORINEF) 0.1 mg tablet, Take 0.1 mg by mouth daily. 2 tablets QD, Disp: , Rfl: lidocaine (SALONPAS) 4 % adhesive patch,medicated, Place 1 patch on the skin., Disp: , Rfl: lidocaine HCL (ASPERCREME) 4 % cream cream, Apply 1 application topically. Apply to topically., Disp: , Rfl: magnesium 200 mg tablet, Take 400 mg by mouth every morning before breakfast., Disp: , Rfl: midodrine (PROAMATINE) 5 mg tablet, Take 5 mg by mouth 2 (two) times a day., Disp: , Rfl: mirtazapine (REMERON) 15 mg tablet, Take 15 mg by mouth at bedtime., Disp: , Rfl: multivit with calcium,iron,min (TAB A LUCIANO ORAL), Take by mouth., Disp: , Rfl: omeprazole (PriLOSEC) [address] capsule, Take 20 mg by mouth every morning before breakfast., Disp: , Rfl: pimavanserin (NUPLAZID) 34 mg capsule tablet, Take 34 mg by mouth daily., Disp: , Rfl: sennosides (SENOKOT) 8.6 mg tablet, Take 8.6 mg by mouth daily., Disp: , Rfl: Allergies Allergen Reactions Penicillins Other (see comments) Sulfa (Sulfonamide Antibiotics) Other (see comments) Her current list of health issues include: #1 Pain Shoulder Right #2 Malignant Neoplasm Of Upper Inner Quadrant Of Female Breast Laterality Unknown (HCC) Her surgical history is notable for: Past Surgical History: Procedure Laterality Date OTHER CONVERTED SHX (SEE COMMENT) N/A 03/26/2009 >Esophagogastroduodenoscopy with biopsies. OTHER CONVERTED SHX (SEE COMMENT) N/A 07/14/2006 >Esophagogastroduodenoscopy with Biopsy Tobacco history is Social History Tobacco Use Smoking Status Never Smokeless Tobacco Not on file . The following portions of the patient's history were reviewed and updated as appropriate: allergies,current medications, family history, medical history, social history, surgical history, and problem list. REVIEW OF SYSTEMS Eyes: Positive for blurred vision. Neurological: Positive for focal weakness, loss of balance or tendency to fall easily and unsteady gait. The following systems were negative: Constitutional, Skin, ENT, Respiratory, Cardiovascular, Gastrointestinal, Endocrine, Hematologic, Psychiatric, Allergic/Immunologic OBJECTIVE PHYSICAL EXAM Ortho Exam Darlene seems relatively alert. I am not certain that she is fully oriented. She is obviously hardof hearing, her affect is flat. She is swollen around the PIP joint of the right middle finger. She can extend to -20 degrees and flex it with difficulty to 90??. It is grossly stable. There is no obvious crepitation. The fingertip is sensate and well perfused. She has a large boggy effusion of the right shoulder. She is able to actively elevate the arm 60??, passively to 100??. She has 30?? of rotation, and the shoulder is grossly crepitant. DIAGNOSTICS No results found for: INR, HGBA1C, SEDRATE, CRP IMAGING I reviewed x-rays of the right middle finger on the PACS system. These are over a month old. These show an avulsion fracture of the dorsum of the base of the middle phalanx. I ordered an interpreted AP and axillary radiographs of the right shoulder. She has obvious rotator cuff arthropathy. The humeral head is proximally migrated. The acromial humeral distance is decreased. She also appears to have increased distance between the glenoid and the humeral head, consistent with her large effusion. ASSESSMENT / PLAN #1 Pain Shoulder Right The patient, her son, and I discussed options. I would recommend leaving the finger as it is. First of all, she has poor bone quality. Secondly, it has been over a month since her injury, and the likelihood of getting an M anatomic reduction is very poor. The soft tissues are undoubtedly significantly contracted. Finally, with her movement disorder, I doubt that she would be able to rehab very well. Normally, her shoulder would be a candidate for reverse total shoulder replacement. However, she is in a memory care unit. She has very poor mobility. It would be mandatory that she not put any weight-bearing on the shoulder for at least 6 weeks after surgery, and that would probably result in the loss of her ability to ambulate. This would leave her worse off than she is now. Unfortunately, this is something she is going to have to live with. documented in this encounter Plan of Treatment Not on filedocumented as of this encounter Results DX Shoulder Right 2+ Views (11/26/2021 2:23 PM CDT) Anatomical Region Laterality Modality Upper Extremity, Shoulder, Musculoskeletal RST LOS, Right Digital Radiography Musculoskeletal ARZ LOS, Muskuloskeletal FLA LOS Specimen (Source) Anatomical Collection Method Collection Time Re ceived Time Location / / Volume Laterality 11/26/2021 2:34 PM CDT Impressions 11/26/2021 2:36 PM CDT Apparent rotator cuff degeneration with superior subluxation of the humeral head and some widening of the glenohumeral joint suggesting joint effusion. Narrative 11/26/2021 2:36 PM CDT EXAM: DX SHOULDER RIGHT 2+ VIEWS COMPARISON: None FINDINGS: Soft tissues are unremarkable. There is superior subluxation of the humeral head in the glenoid consistent with rotator cuff deg eneration with some widening of the glenohumeral joint suspicious for an effusion. The acromioc lavicular joint is unremarkable. Procedure Note Noble Otero Jr., M.D. - 2021 EXAM: DX SHOULDER RIGHT 2+ VIEWS COMPARISON: None FINDINGS: Soft tissues are unremarkable. There is superior subluxation of the humeral head in the glenoid consistent with rotator cuff deg eneration with some widening of the glenohumeral joint suspicious for an effusion. The acromioc lavicular joint is unremarkable. IMPRESSION: Apparent rotator cuff degeneration with superior subluxation of the humeral head and some widening of the glenohumeral joint suggesting joint effusion. Sharad [facility] RADHA BURNS documented in this encounter Visit Diagnoses Diagnosis Pain Shoulder Right - Primary Pain Shoulder Right documented in this encounter Care Teams Auto Glass Installer Relationship Specialty Start Date End Date Elsewhere, Pcp PCP - General Fountain Vending Mechanic 03/20/19 documented as of this encounter
--- OUTSIDE RECORDS SUMMARY | 2021-12-14 22:56 | XMS_ITS | Encounter Summary ---
:1955 Author Organization [facility] Address [address] [place] [address] Care Team Providers Name Role Phone Elsewhere, Pcp Primary Care Provider Unavailable Reason for Referral Outpatient (Routine) - Closed Specialty Diagnoses / Procedures Referred By Contact Refer red To Contact Diagnoses Pain Hand Right [facility] Region Procedures DX Fingers Right 2+ Views [address] [place] [address] Referral ID Status Reason Start Date Expiration Date Visits Requ ested Visits Authorized [id number] Closed 10/21/2021 10/21/2022 1 1 utpatient (Routine) - Closed Specialty Diagnoses / Procedures Referred By Contact Refer red To Contact Diagnoses Pain Hand Right Dominic Samuel D.O. [facility] Region Procedures DX Hand Right 3+ Views [address] [place] [address] Referral ID Status Reason Start Date Expiration Date Visits Requ ested Visits Authorized [id number] Closed 10/21/2021 10/21/2022 1 1 Reason for Visit Reason Comments Fracture Middle finger right hand. Consult Encounter Details Date Type Department Care Team Description 10/21/2021 Comprehensive Visit Department of Steven Samuel nd Right Orthopedic Surgery Bianca Alfaro (Primary Dx) in [address] [place] [id number] [place], [place] [phone] (Work) [phone] Social History Tobacco Use Types Packs/Day Years Used Date Smoking Tobacco: Never Sex Assigned at Date Recorded Not on file documented as of this encounter Last Filed Vital Signs Vital Sign Reading Time Taken Comments Blood Pressure - - Pulse 86 10/21/2021 1:42 PM CDT Temperature 36.9 ??C (98.4 ??F) 10/21/2021 1:42 PM CDT Respiratory Rate - - Oxygen Saturation 98% 10/21/2021 1:42 PM CDT Inhaled Oxygen Concentration - - Weight - - Height - - Body Mass Index - - documented in this encounter Patient Instructions Patient InstructionsDominic Samuel D.O. - 10/21/2021 1:30 PM CDT Images from the original note were not included. [address] [place] [id number] [facility] October 21, 2021 RE: Darlene Drew #: [id number] : 1955 This patient was evaluated on 10/21/2021 at 1:30 pm. Current status: Patient has middle phalanx fracture of her long finger. This will be treated non-operatively in a splint for three weeks. She can come out of splint for bathing/showering otherwise should wear it methods time analyst. She should ice her finger a few times a day. After three weeks she can start working on range of motion of her finger and wean out of splint. I will see her back in three weeks to see how she is doing. Darlene Drew's next appointment is in about 3 weeks. Signed: Dominic Samuel D.O. Department Of Orthopedic Surgery In [place], [place] Dept: [phone] Signed on 10/21/21 at 2:51 PM CDT documented in this encounter Consult Notes Dominic Samuel D.O. - 10/21/2021 1:30 PM CDT REFERRING PROVIDER: No ref. provider found CHIEF COMPLAINT Chief Complaint Patient presents with Right Hand - Fracture Middle finger right hand. Consult HISTORY OF PRESENT ILLNESS Darlene Drew is a 66 y.o. Female who presents today for right finger pain. Patient has a history of Parkinson's disease and dementia and lives in a memory care unit. Patient presents with navarro today. Her daughter states that about 3-4 weeks ago they think she initially hurt her finger during fall. He had subsequently getting better, however this past Monday he noticed it was significantly swollen again and she seemed to be having more pain. Imaging was performed at the memory care unit and revealed a middle phalanx fracture of her middle finger. She has not seen any bloody this, has not been in a splint. She spends most of her day in a wheelchair and has low functional demand. She will do some arts and crafts. 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 PHYSICAL EXAM Pulse 86 Temp 36.9 ??C (Temporal) SpO2 98% The patient is well appearing, and in no acute distress. They are alert and oriented. Patient is normocephalic, and has equal chest rise bilaterally. There is a normal inspiratory effort. Examination of the right hand Significant swelling about the PIP joint of her middle finger. Slight flexion deformity of her PIP joint Tender to palpation at the PIP joint Able to make somewhat of this, no angular deformity Sensation intact to light touch throughout hand fingers AIN/PIN/radial/ulnar/median nerves grossly intact Fingers warm well perfused IMAGE STUDIES @DX Hand Right 3+ Views Result Date: 10/21/2021 Impression: Mildly displaced intra-articular fracture at the dorsal aspect of the base of the 3rd middle phalanx. DX Fingers Right 2+ Views Result Date: 10/21/2021 Impression: Mildly displaced intra-articular fracture at the dorsal aspect of the base of the 3rd middle phalanx. IMPRESSION AND PLAN Darlene Drew is a 66 y.o. female with displaced dorsal avulsion fracture of the base of the middle finger middle phalanx. Discussed anatomy and pathology patient's injury. Also discussed non operative versus operative treatment modalities, as well as discuss case with her hand surgeon Dr. Ross. Due to the small size of the fragment her finger would likely need to be treated with a dynamic external fixator device if we were to proceed with surgery. Given the patient's Parkinson disease, dementia, and low functional demand it was discussed with patient's daughter that she would likely not tolerate this well. Patient's daughter also agreed with this. We did discuss that we could treat this non operatively in a splint and see how she does. She may be able to avoid surgery altogether with her low functional demand. If she does have issues down the road then we could discuss using PIP joint which she would tolerate muchbetter. 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 Patient and daughter voiced understandingof this and still elected to proceed with nonsurgical management at this time. We will give her a volar Alumafoam splint that she can wear for a few weeks while her injuries scars in. We will see how she is doing 3 weeks and will start doing some [id number]-oc-[id number] exercises with the finger. Will continue to monitor how she does over time, and if it comes time that she needs a fusion we will refer her to Dr. Ross for that Total time spent providing patient care was 50 minutes. This includes time spent with the patient and time spent on same day pre/post visit EMR documentation, orders, medications, procedures, and communication with other health rehab care assistant. documented in this encounter Plan of Treatment Not on filedocumented as of this encounter Results DX Fingers Right 2+ Views (10/21/2021 2:19 PM CDT) Anatomical Region Laterality Modality Upper Extremity, Fingers, Musculoskeletal RST LOS, Right Digital Radiography Musculoskeletal ARZ LOS, Muskuloskeletal FLA [facility] Specimen (Source) Anatomical Collection Method Collection Time Re ceived Time Location / / Volume Laterality 10/21/2021 2:53 PM CDT Impressions 10/21/2021 2:55 PM CDT Mildly displaced intra-articular fracture at the dorsal aspect of the base of the 3rd middle phalanx. Narrative 10/21/2021 2:55 PM CDT EXAM: DX FINGERS RIGHT 2+ VIEWS COMPARISON: Right hand of 10/21/2021. FINDINGS: There is soft tissue swelling of the 3rd finger. There is a mildly displaced intra-articular fracture at the dorsal a spect of the base of the middle phalanx. No additional areas suspicious for fracture identified. Join t spaces otherwise preserved. Procedure Note Noble Otero Jr., M.D. - 2021 EXAM: DX FINGERS RIGHT 2+ VIEWS COMPARISON: Right hand of 10/21/2021. FINDINGS: There is soft tissue swelling of the 3rd finger. There is a mildly displaced intra-articular fracture at the dorsal a spect of the base of the middle phalanx. No additional areas suspicious for fracture identified. Join t spaces otherwise preserved. IMPRESSION: Mildly displaced intra-articular fractur e at the dorsal aspect of the base of the 3rd middle phalanx. Dominic Samuel D.O. IMG DIAGNOSTIC IMAGING PROCE [facility] DX Hand Right 3+ Views (10/21/2021 1:49 PM CDT) Anatomical Region Laterality Modality Upper Extremity, Hand, Musculoskeletal RST LOS, Right Digital Radiography Musculoskeletal ARZ LOS, Muskuloskeletal FLA [facility] Specimen (Source) Anatomical Collection Method Collection Time Re ceived Time Location / / Volume Laterality 10/21/2021 2:25 PM CDT Impressions 10/21/2021 2:27 PM CDT Mildly displaced intra-articular fracture at the dorsal aspect of the base of the 3rd middle phalanx. Narrative 10/21/2021 2:27 PM CDT EXAM: DX HAND RIGHT 3+ VIEWS COMPARISON: None FINDINGS: There is some soft tissue swel ling of the 3rd finger. Bones show generalized osteopenia. There is a mildly displaced intra-articu lar fracture at the dorsal aspect of the base of the 3rd middle phalanx. No additional fractures identified. Hand and wrist joint spaces are preserved. Procedure Note Noble Otero Jr., M.D. - 2021 EXAM: DX HAND RIGHT 3+ VIEWS COMPARISON: None FINDINGS: There is some soft tissue swel ling of the 3rd finger. Bones show generalized osteopenia. There is a mildly displaced intra-articu lar fracture at the dorsal aspect of the base of the 3rd middle phalanx. No additional fractures identified. Hand and wrist joint spaces are preserved. IMPRESSION: Mildly displaced intra-articular fractur e at the dorsal aspect of the base of the 3rd middle phalanx. Dominic [facility] RADHA BURNS documented in this encounter Visit Diagnoses Diagnosis Pain Hand Right - Primary Pain Hand Right Pain Hand Right documented in this encounter Care Teams Director Life Sciences Relationship Specialty Start Date End Date Elsewhere, Pcp PCP - General Food Preparation Worker 03/20/19 documented as of this encounter
--- OUTSIDE RECORDS SUMMARY | 2021-12-14 22:56 | XMS_ITS | Encounter Summary ---
:1955 Author Organization [facility] Address [address] [place] [address] Care Team Providers Name Role Phone Unassigned, Provider Primary Care Provider Unavailable Reason for Visit Reason Comments Other Encounter Details Date Type Department Care Team Description 11/13/2009 Telephone Specialty Center [address] 1 Neurology Isabelle Hurst Other [address] [place], [place] [address] Social History Tobacco Use Types Packs/Day Years Used Date Smoking Tobacco: Never Assessed Sex Assigned at Date Recorded Not on file documented as of this encounter Progress Notes Africa Lucas MD - 11/13/2009 7:38 AM CDT Phone Note filed by Africa Lucas MD at 06/26/101721 Author: Africa Lucas MD Service: (none) Author Type: Physician Filed: 06/26/101721 Note Time: 11/13/09737 Status: Signed Submarine Operator: Africa Lucas MD (Physician) Breanna Griffin send pt a copy of her note from today's clinic visit, thanks. Created on 13Nov2009 7:38am by AFRICA LUCAS On 13Nov2009 1:14pm ISABELLE HURST wrote: done. Acknowledged by ISABELLE HURST on 1:14pm RICT ADVISER documented in this encounter Plan of Treatment Upcoming Encounters Date Type Specialty Care Team Description 06/08/2022 Appointment Neurology Africa Lucas MD [address] [facility] [address] [facility] [address] (Wo rk) documented as of this encounter Visit Diagnoses Not on filedocumented in this encounter Care Teams Parking Enforcement Specialist Relationship Specialty Start Date End Date Unassigned, Provider PCP - General 03/13/00 03/16/[address] [place] [address] documented as of this encounter
--- OUTSIDE RECORDS SUMMARY | 2021-12-14 22:56 | XMS_ITS | Encounter Summary ---
:1955 Author Organization Counts include 234 beds at the [facility] Address [address] [place] [address] Care Team Providers Name Role Phone Unassigned, Provider Primary Care Provider Unavailable Encounter Details Date Type Department Care Team Description 12/18/2008 PN Conversion Only CONV NEUROLOGY Parris Lucas MD [address] [facility] [address] [facility] [address] [place] [phone] (Wo rk) Social History Tobacco Use Types Packs/Day Years Used Date Smoking Tobacco: Never Assessed Sex Assigned at Date Recorded Not on file documented as of this encounter Plan of Treatment Upcoming Encounters Date Type Specialty Care Team Description 06/08/2022 Appointment Neurology Parris Lucas MD [address] [facility] [address] [facility] [address] [address] (Wo rk) documented as of this encounter Visit Diagnoses Not on filedocumented in this encounter Care Teams Vanstone Machine Operator Relationship Specialty Start Date End Date Unassigned, Provider PCP - General 03/13/00 03/16/14 [address] [place] [address] documented as of this encounter
--- OUTSIDE RECORDS SUMMARY | 2021-12-14 22:56 | XMS_ITS | Encounter Summary ---
:[address] [facility] Address [address] [place] [address] Care Team Providers Name Role Phone Elsewhere, Pcp Primary Care Provider Unavailable Reason for Referral Outpatient (Routine) - Closed Specialty Diagnoses / Procedures Referred By Contact Refer red To Contact Diagnoses Pain Hand Right Dominic Samuel D.O. [facility] Region Procedures DX Hand Right 3+ Views [address] [place] [address] Referral ID Status Reason Start Date Expiration Date Visits Requ ested Visits Authorized [id number] Closed 10/21/2021 10/21/2022 1 1 Reason for Visit Outpatient (Routine) - Closed Specialty Diagnoses / Procedures Referred By Contact Refer red To Contact Diagnoses Pain Hand Right Dominic Samuel D.O. [facility] Region Procedures DX Hand Right 3+ Views [address] [place] [address] Referral ID Status Reason Start Date Expiration Date Visits Requ ested Visits Authorized [id number] Closed 10/21/2021 10/21/2022 1 1 Encounter Details Date Type Department Care Team Description 10/21/2021 Hospital Encounter Department of Dominic Samuel, Pain Hand Right Radiology, [place] [facility], in [place] [address] [address] [place], [place] [address] [place] [address] [place], [place] [phone] (Work) [phone] Social History Tobacco Use Types Packs/Day Years Used Date Smoking Tobacco: Never Sex Assigned at Date Recorded Not on file documented as of this encounter Medications at Time of Discharge Medication Sig Dispensed Refills Start Date End Date acetaminophen (TYLENOL) Take by mouth every 6 0 500 mg capsule (six) hours as needed for pain. calcium carbonate (TUMS Chew 1 tablet daily. 0 E-X) 750 mg (300 mg calcium) chewable tablet carbidopa-levodopa Take 1 tab po at 0 06/21/2021 (SINEMET) 25-250 mg per 7:05am, 9am, 11am, tablet 1pm, 3:05pm and 7pm and 1/2 pill at 5pm carbidopa-levodopa Take 0.5 tablets by 0 (SINEMET) 25-250 mg per mouth daily. Take at tablet 5 PM ippggskwl-ldysgsvj-vpfiqjc Take 1 tablet by 0 one (STALEVO) 50-200-200 mouth at bedtime. mg per tablet Take at 9 PM cholecalciferol (VITAMIN Take 50 mcg by mouth 0 D3) 50 mcg (2,000 Unit) daily. tablet denosumab (PROLIA) 60 Inject 60 mg under 0 mg/mL syringe the skin once. escitalopram (LEXAPRO) 20 Take 20 mg by mouth 0 mg tablet daily. fludrocortisone (FLORINEF) Take 0.1 mg by mouth 0 0.1 mg tablet daily. 2 tablets QD lidocaine (SALONPAS) 4 % Place 1 patch on the 0 adhesive patch,medicated skin. lidocaine HCL (ASPERCREME) Apply 1 application 0 4 % cream cream topically. Apply to topically. magnesium 200 mg tablet Take 400 mg by mouth 0 every morning before breakfast. midodrine (PROAMATINE) 5 Take 5 mg by mouth 2 0 mg tablet (two) times a day. mirtazapine (REMERON) 15 Take 15 mg by mouth 0 mg tablet at bedtime. multivit with Take by mouth. 0 calcium,iron,min (TAB A LUCIANO ORAL) omeprazole (PriLOSEC) 20 Take 20 mg by mouth [address] capsule every morning before breakfast. pimavanserin (NUPLAZID) 34 Take 34 mg by mouth 0 mg capsule tablet daily. sennosides (SENOKOT) 8.6 Take 8.6 mg by mouth 0 mg tablet daily. documented as of this encounter Plan of Treatment Not on filedocumented as of this encounter Procedures Procedure Name Priority Date/Time Associated Comments Diagnosis DX HAND RIGHT 3+ RAD - Routine 10/21/2021 1:49 Pain Hand Right Resu lts for this VIEWS (most inpatients PM CDT procedure a re in and all the results outpatients) section. documented in this encounter Results DX Hand Right 3+ Views (10/21/2021 1:49 [...] Dominic Samuel D.O. IMG DIAGNOSTIC IMAGING PROCE DURES documented in this encounter Visit Diagnoses Diagnosis Pain Hand Right documented in this encounter Care Teams Cheese Tester Relationship Specialty Start Date End Date Elsewhere, Pcp PCP - General Unemployment Specialist 03/20/19 documented as of this encounter
--- OUTSIDE RECORDS SUMMARY | 2021-12-14 22:56 | XMS_ITS | Encounter Summary ---
:1955 [facility] Address [address] [place] [address] Care Team Providers Name Role Phone Unassigned, Provider Primary Care Provider Unavailable Reason for Visit Reason Comments Other Encounter Details Date Type Department Care Team Description 03/16/2010 Telephone CONV NEUROLOGY Isabelle Hurst Other [address] [place] [address] Social History Tobacco Use Types Packs/Day Years Used Date Smoking Tobacco: Never Assessed Sex Assigned at Date Recorded Not on file documented as of this encounter Progress Notes Conversion, Imr - 03/16/2010 3:28 PM CST Refill request for sinemet 25-100 take 2.5 tabs 3-4x/day per pt qty 900 with 3 refills needed [facility] @ [phone]. Created on 16Mar2010 3:28pm by ISABELLE HURST On 17Mar2010 6:37am AFRICA LUCAS wrote: ok to refill as described Acknowledged by AFRICA LUCAS on 6:37am On 17Mar2010 8:22am ISABELLE HURST wrote: called as described above. Acknowledged by ISABELLE HURST on 8:22am C BOOK ARTIST documented in this encounter Plan of Treatment Upcoming Encounters Date Type Specialty Care Team Description 06/08/2022 Appointment Neurology Africa Lucas MD [address] [facility] [address] [facility] [address] (Wo rk) documented as of this encounter Visit Diagnoses Not on filedocumented in this encounter Care Teams Manager Trade Relationship Specialty Start Date End Date Unassigned, Provider PCP - General 03/13/00 03/16/[address] [place] [address] documented as of this encounter
--- OUTSIDE RECORDS SUMMARY | 2021-12-14 22:56 | XMS_ITS | Encounter Summary ---
:1955 Author Organization [facility] Address [address] [place] [address] Care Team Providers Name Role Phone Unavailable Primary Care Provider Unavailable Encounter Details Date Type Department Care Team Description 12/04/2014 - Hospital Encounter HX [facility] ED PT Parris Lucas M.D. 12/25/2014 [address] [place] [phone] (Wo rk) Social History Tobacco Use Types Packs/Day Years Used Date Smoking Tobacco: Never Assessed Sex Assigned at Date Recorded Not on file documented as of this encounter Progress Notes Radha Chambers, A.T.R., P.T. - 12/25/2014 12:00 AM CDT [id number] DATE OF SERVICE: 12/25/2014. SUBJECTIVE: The patient indicates she played dice and cards last night without any issues, freezing up instances, or requirement of resting before she could leave. The patient reports it was approximately 8:00 when she got home last night and she did require some rest when she got home, but again no specific issues of freezing up. The patient reports this is significant progress for her as she has not had that happen for awhile. The patient identifies being able to walk through visiting home withoutissues, specifically with threshold after performing several stairs to enter. The patient has identified she overall feels more confident with tasks around the home and as a result feels like she is eng aging in more activities again. OBJECTIVE Therapeutic exercise: Sustained exercises sitting floor to ceiling 4 repetitions performed, sitting [id number] 4 repetitions performed bilaterally, repetitive exercise forward step 4 repetitions performed bilaterally, sideways stepping 4 repetitions performed bilaterally, backwards stepping 4 repetitions performed bilaterally, forward rock and reach 10 repetitions performed bilaterally, sideways rock and reach 10 repetitions performed bilaterally. Functional exercises: Sit to stand BIG 5 repetitions, pivot turn 180 degrees simulate in her hallway at home 5 repetitions performed bilaterally. Gait stability with BIG stance performed with 10 repetitions performed with ocular motion and repeated attempts to perform head movement with static eye pattern. The patient able to perform 2 repetitions without eye movement consecutively. Opening/closing exterior door included with her daily carry over exercises, which included standing kneeling to floor to standing 5 repetitions performed, chair through t he exterior door to receive the mail and back 5 repetitions performed. In addition the patient retested with functional tests that were administered on her initial treatment session and evaluation which included the ABC Stone scale. The patient scored 90% confident. The patient's Barrow Balance Score,the patient scored a 53/56. Timed up and go test, the patient's goal ordered 7 seconds; 5 times sit to stand 12 seconds. ASSESSMENT: The patient continues to experience limitation in her right upper thoracic region with pain with no specific symptoms changed with range of motion or exercises while performing them. Overall the patient has demonstrated significant improvement from her initial assessment until today's treatment session. The patient has demonstrated improvement with Barrow Balance Scale of 6 points, decreased her time with sit to stand 5 repetitions of 2 seconds and 2 seconds less time with timed up and go test. In addition, the patient's handwriting examples were analyzed from her initial start and significant improvement was observed with legibility, spacing, and size from her initial until today. The patient has demonstrated great strides towards all of her goals at this time. The patient has demonstrated significant strength and control gains in regards to performing her exercises demonstrating improved mobility from start to finish with the exercises. PLAN: At the current time, the patient is to be discharged from physical therapy. The patient is independent with home exercise program based BIG philosophy. The patient has been instructed on various strategies, techniques to manage a variety of instances in her personal life situation with greatest time spent on quick stops, quarter turns, 180 turns, and wide base of support with her pelvis squaredup to her objects to prevent falls. The patient to contact the office with any questions or concernsshe may have in the future in regards to her treatment. At the current time, the patient to be formally discharged from physical therapy. ADMINISTRATIVE BILLING Therapeutic exercise 57 minutes. Radha Chambers D.P.T./stephanie Electronically Signed By: RADHA CHAMBERS PT On: 12/26/2014 12:02 PM Modified by and Electronically Signed by: RADHA CHAMBERS PT On: 12/26/2014 12:02 PM Source: [facility] MHSDOLBEYNMIKE Document Id: [id number] Radha Chambers A.T.R., P.T. - 12/24/2014 12:00 AM CDT [id number] TREATMENT DIAGNOSIS: Big secondary to Parkinson's. SUBJECTIVE: The patient indicates she did perform her home exercise program yesterday in the afternoon and all went well. The patient reports she was able to walk 10 minutes again yesterday. The patient has identified several tasks and behaviors that she noticed have gotten easier. Specifically patient mentioned getting around in her kitchen and performing duties within the kitchen. She has become more active, engaging and feels more stable and tolerates more. The patient also identifies things suchas getting in and out of the bathroom have gotten easier, and walking through her door to get to hervehicle at home. She has observed decreased freezing at that threshold, finding the strategy to look ahead and not down as a helpful technique. OBJECTIVE Therapeutic exercise: Sustained exercised sitting floor to ceiling 4 reps performed bilaterally, sitting side to side 4 reps performed bilaterally. Repetitive exercises: Forward step 4 repetitions performed bilaterally, sideways step 4 repetitions performed bilaterally, backwards step 4 repetitions performed bilaterally, forward rock and reach 10 repetitions performed bilaterally, sideways rock and reach 10 repetitions performed bilaterally. Functional exercises: Sit to stand big 5 repetitions, pivot turn 180 degrees to simulate in the hall5 repetitions performed bilaterally. Gaze stabilization while standing big at the sink with head turns and with eye movement performed 10 repetitions each with adjustments made to the speed for patientto perform correctly. Opening and closing the exterior door of her home 5 repetitions performed withverbal cues for squaring of her hips, daily carry-over exercises, sit to kneel to the floor to stand5 repetitions performed, from chair to open the door to the mailbox and returning 5 repetitions performed. Add on today in and out of vehicle, including opening and closing and sitting within the vehicle 5 repetitions performed. ASSESSMENT: The patient continues to require cues to square her hips and avoid standing and reachingand twisting. The patient verbalizes starting to recognize the pattern and how to adjust and lists examples specific to what she is doing at home, identifying it for herself. The patient performed 10-minute walk today again with 2 days in a row without freezing or stutter steps. PLAN: The patient has 1 appointment remaining under current care. Continue to progress patient with quick turns, spins, quick stops and [id number] mobility. ADMINISTRATIVE BILLING Therapeutic exercise 60 minutes. Radha Chambers D.P.T./pos Electronically Signed By: RADHA CHAMBERS PT On: 12/26/2014 11:51 AM Modified by and Electronically Signed by: RADHA CHAMBERS PT On: 12/26/2014 11:51 AM Source: [facility]SDOLBEY[facility]RADSYS Document Id: [id number] Radha Chambers A.T.R., P.T. - 12/23/2014 12:00 AM CDT [id number] DATE OF SERVICE: 12/23/2014. TREATMENT DIAGNOSIS: BIG, for Parkinson's. SUBJECTIVE: The patient reports she did feel she was tired and spent by about 7:30 last night, but overall states she did better than she thought she would be able to. The patient also indicates she was able to perform her home exercises one more time last night effectively. OBJECTIVE Therapeutic exercise: Sustained exercises, sitting floor to ceiling 4 reps performed bilaterally, sustained exercise, sitting side to side 4 reps performed bilaterally. Repetitive exercise forward step4 repetitions performed bilaterally. Repetitive exercise sideways step 4 repetitions performed bilate rally. Repetitive exercise backwards step 4 repetitions performed bilaterally. Repetitive exercise forward rock and reach 10 repetitions performed bilaterally. Repetitive exercise sideways rock and reach 10 repetitions performed bilaterally. Functional exercise sit to stand, BIG 5 reps, functional exercise pivot turn 180 degrees, simulating in tripathi from door to door, performed 5 repetitions each. Functional exercise, gait stability while standing, BIG at the kitchen sink, both eyes 45 to 45, and head turns performed 5 repetitions. Walking BIG, patient performed 10 minutes outdoors with cues. Daily carry-over exercise gardening, kneeling to floor to standing, the patient performed 5 repetitions. Carry-over exercise from chair through door to mailbox and return through door, 5 repetitions performed. ASSESSMENT: The patient obtained 10 minute walking goal today while outdoors. The patient performed 5 repetitions from floor to standing without loss of balance today. PLAN: Patient to continue to work on consistency of BIG steps, BIG stands, BIG turns, as well as specifically managing her hips being squared to her objects, and avoiding the reaching and twisting of her spine. ADMINISTRATIVE BILLING Therapeutic exercise for 60 minutes. Radha Chambers D.P.T./pos Electronically Signed By: RADHA CHAMBERS PT On: 12/26/2014 11:19 AM Source: [facility] Document Id: [id number] Radha Chambers A.T.R., P.T. - 12/22/2014 12:00 AM CDT [id number] SUBJECTIVE: The patient indicates she did not have a great weekend and is not feeling the best today. The patient reports she was busy watching grandkids, as everyone was out in the field working on the crops and harvesting. The patient reports she was able to perform her exercises specific to the home exercise program and walked and that was it. The patient did not perform carry-over daily exercisesor functional exercises. The patient also indicates her daughter commented on she is observing improvement with her mother's movement patterns. OBJECTIVE: Therapeutic exercise: Sustained exercise sitting floor to ceiling 4 repetitions performed bilaterally, sitting side to side 4 reps performed bilaterally, repetitive exercises forward stepping 4 repetitions performed bilaterally, sideways stepping 4 repetitions performed bilaterally, backwards step 4 re petitions performed bilaterally, forward rock and reach 10 repetitions performed bilaterally, sideways rock and reach 10 repetitions performed bilaterally. Functional exercise sit to stand big 5 repetitions, functional exercise pivot turn 180 degrees to be performed in the hallway between 2 door wells. Walking big 5 minutes today with verbal cues for left lower extremity. Daily carry-over exercise, gardening, related sit to kneeling to standing at or near a counter for bracing herself for safety 5 repetitions performed today. ASSESSMENT: The patient demonstrates decreased tolerance to walking today with increased shuffling with her gait, repetitive short steps on the left with a festering pattern not previously displayed during therapy. Patient was physically challenged with the sitting kneel to floor and was able to perform correctly, safely upon her 5th repetition. The patient was able to complete the pivot turn 180 degrees with her 5th repetition with verbal cues to perform correctly. The patient continues to experience right upper quadrant pain and right knee pain limiting her activities at home as well as participating in exercise due to increased symptoms provoked in the medial aspect of her right knee. PLAN: The patient has 3 appointments remaining. Continue to focus on patient's functional daily carry-over exercises, specifically addressing her mobility through her pelvis and her legs to promote appropriate body straightener positioning. ADMINISTRATIVE BILLIN minutes of therapeutic exercise. Radha Chambers D.P.T./stephanie Electronically Signed By: RADHA CHAMBERS PT On: 12/26/2014 11:17 AM Modified by and Electronically Signed by: RADHA CHAMBERS PT On: 12/26/2014 11:17 AM Source: [facility] Document Id: [id number] Radha Chambers A.T.R., P.T. - 12/18/2014 12:00 AM CDT [id number] DATE OF SERVICE 12/18/2014. TREATMENT DIAGNOSIS: Big for Parkinson's symptoms. SUBJECTIVE: The patient indicates she was a little tired after her session yesterday but after about30 minutes she felt she recovered. The patient indicates she was challenged with the exercises that were provided yesterday for her to perform at home including the daily carry-over and functional exercise. The patient indicates she is utilizing wall for support to prevent fall with her daily carry-over. The patient also identifies she is pleased with coming in an earlier appointment without having to use assistive device and being as mobile as she is. OBJECTIVE Therapeutic exercise: Sustained exercise sitting floor to ceiling 4 reps performed bilaterally. Sustained exercise sitting side to side 4 reps performed bilaterally. Repetitive forward stepping 4 repetitions bilaterally, repetitive sideway stepping 4 repetitions performed bilaterally, repetitive backwards step 4 repetitions performed bilaterally, repetitive forward rock and reach 10 repetitions performed bilaterally, repetitive sideways rock and reach 10 repetitions performed bilaterally. [id number] 5 repetitions performed, shuffling the card, specific with bridging 5 repetitions performed, quarter turns from sink to stove and sink to fridge 8 repetitions performed, introduce quick turn between patient's 2 doors at home along the hallway with 5 repetitions performed focusing on turning to the right and to the left. Walking big performed for 7 minutes with verbal cues and addition ofquick turns sporadically as well as head positioning random commands for target seeking out. Daily carryover exercise review, big bathroom, 2 quarter turns, stool to sink to door and added today going into her pantry opening the door and utilizing 2 shelves approximately waist height, shoulder height with 2 can goods between the 2 shelves, approximately a pound each with emphasis and focus on utilizing her core for stabilization and using her arms and avoiding substitution of upper trap and lateral trunk flexion. Repetitions 5 performed each. ASSESSMENT: The patient is challenged with quick turns and quarter turns. The patient increases her stride length and hip squaring ability to her object with the exercise of quarter turns from her sinkto her stove and sink to her refrigerator, enabling her to perform the task correctly with increased repetitions. Patient observed to substitute with upper trap and lateral trunk flexion with arm mobility today. Patient able to attempt to correct with repetitions her control improves. Patient able to maintain and complete 7 minutes of continuous gait with her walking big today utilizing her arm and co nsistent mobility. PLAN: The patient to continue with exercises over the weekend. Introduce new exercises next week forher functional and daily carry-over. Continue to address core stabilization and avoiding upper trap compensation and lateral trunk flexion strategies. Continue to address wide base of support, quick turns and quarter turns to further progress patient's functional mobility and avoiding falls and balance issues. Attempt to utilize vestibular strategies to eliminate dizziness symptoms as well. ADMINISTRATIVE BILLING Therapeutic exercise 70 minutes. Radha Chambers D.P.T./pos Electronically Signed By: RADHA CHAMBERS PT On: 12/26/2014 11:11 AM Modified by and Electronically Signed by: RADHA CHAMBERS PT On: 12/26/2014 11:11 AM Source: [facility] Document Id: [id number] Radha Chambers A.T.R. P.T. - 12/17/2014 12:00 AM CDT [id number] DATE OF SERVICE: 12/17/2014. TREATMENT DIAGNOSIS: BIG secondary to Parkinson's. SUBJECTIVE: Patient reports she continues to utilize ice and heat for her right shoulder, neck region, and right knee. Patient describes right knee is being sore today. The patient indicates she was able to do her home exercises last night. Then proceeded to with a hot shower and went to bed. Patient reports in general she did have to take a break and took a nap in the early evening, but then overallhas felt better. OBJECTIVE: THERAPEUTIC EXERCISE: Sustained exercise sitting floor to ceiling 4 reps performed bilaterally with flicking of hands and elbows. Sustained exercise sitting side to side, reaching 4 repetitions performed with flicking of hands and elbows. Repetitive exercise included forward step 4 repetitions performed bilaterally. Sideways step 4 repetitions performed bilaterally. Backwards step 4 repetitions performed bilaterally. Forward rock and reach 10 repetitions performed bilaterally. Sideways rock and reach 10 repetitions performed bilaterally. Functional exercise sit to stand BIG 5 repetitions. Functional exercise shuffling cards with bridge 5 repetitions. Functional exercise quarter turn stepping from sink to stove and stove to sink, sink to fridge, fridge to sink performed 5 repetitions each direction. Walking BIG 7 minutes outdoors. Daily carry-over included putting silverware away, utilizing clothes pins performed with red and yellow, 10 repetitions performed bilaterally, and progressed to green and blue, 10 repetitions performed bilaterally. Introduced BIG bathroom exercise today utilizing sit to stand, BIG from the stool 2 quarter turns to the sink utilizing BIG tactics for washing and dryinghands, and quarter turn to the left to exit the bathroom. Performed 5 repetitions. ASSESSMENT: The patient able to perform all exercises without modification use of chair today. The patient demonstrates some limitation with right shoulder as symptoms are provoked greatest with sideways rock and reach. The patient is able to demonstrate returning to BIG starting posture position withall sustained exercises today. PLAN: The patient has scheduled appointment tomorrow to continue to integrate quick start, stops, and quarter turns for gait, and freezing goals. ADMINISTRATIVE BILLING Therapeutic exercise 60 minutes. Radha Chambers D.P.T./pos Electronically Signed By: RADHA CHAMBERS PT On: 12/26/2014 11:01 AM Source: [facility] Document Id: [id number] Radha Chambers, Rhiannon, P.T. - 12/16/2014 12:00 AM CDT [id number] DATE OF SERVICE: 12/16/2014. TREATMENT DIAGNOSIS: BIG for Parkinson symptoms. SUBJECTIVE: The patient indicates she is still tired today, but definitely doing better than her yesterday appointment. The patient indicates following her appointment yesterday she did go home and require some resting time including greater than an hour. The patient did remained fatigue the rest of the day yesterday, but was improved over what her morning had been. OBJECTIVE: Observation: The patient is ambulating without assistive device today. Therapeutic exercise: Sustained exercise sitting floor to ceiling 4 repetitions with flicking of thefingers and elbows, sustained exercise sitting side to side 4 repetitions performed bilaterally withflicking of the fingers and elbows. Repetitive exercise, forward stepping 4 times performed bilaterally with flicking as able at end range with arms sideways stepping 4 repetitions performed bilaterally with flicking performed as able at end range. Backwards step 4 reps performed bilaterally with flicking performed at end range. Functional exercise sit to stand 5 repetitions performed with flicking performed as able at end range. Shuffling cards, forming a bridge performed 10 repetitions with education and cues on different in various strategies to implement with shuffling deck, as well as dealing the deck utilizing a table surface with emphasis on each card being distributed individually to each person and strategies of hand/wrist placement. Walking BIG performed outdoors today on sidewalk, as well through the parking lot. The patient performed for 5 minutes without use of 4-wheeled walker. Daily carry-over activity placing silverware away and taking them out performed utilizing yellow and redclothes pins performed 10 repetitions each. ASSESSMENT: The patient maintained current exercise program from yesterday secondary to onset of increased symptoms yesterday and patient's level of fatigue remaining high today. Secondary to fatigue, the patient was limited from performing home exercises yesterday evening. The patient remains fatigued, but with repetitions is able to progress with increased stability today with her exercises compared to yesterday. The patient did not require chair for active assisted with standing exercises today. PLAN: The patient to focus on existing exercise program today yet, performing her second routine andrespecting her right shoulder upper quadrant symptoms as well. Progress with quick turns and quick stops for improved gait management as able for functional exercises, as well as incorporating for daily carry over. ADMINISTRATIVE BILLING Therapeutic exercise 57 minutes. Radha Chambers D.P.T./pos Electronically Signed By: RADHA CHAMBERS PT On: 12/18/2014 09:31 AM Source: [facility] Document Id: [id number] Radha Chambers A.T.R., P.T. - 12/15/2014 12:00 AM CDT [id number] TREATMENT DIAGNOSIS: BIG for Parkinson's. SUBJECTIVE: The patient reports she is having a bad day today. Patient indicates yesterday she had an extremely busy day with adventist, an outing, and then playing cards until 5:30. Her day was full of activity. The patient reports she was exhausted by the time she got home but functioned the way she wanted to throughout the course of her day with no specific limitations secondary to Parkinson symptoms. Patient reports today, she woke up and feels as though her legs are numb, and she feels weak and tired overall. Patient indicates she is frustrated at this point. Patient also identifies her friends that she played cards with last night commented multiple times on how well she is doing with her gait and her tolerance to activity. OBJECTIVE: Observation: Patient was wheeled in on her 4-wheeled walker by her spouse today as she was unable todrive herself to her appointment. In addition, patient utilizing 4-wheeled walker for ambulation secondary to weakness of legs today. Patient observed to have difficulty with transitioning over thresholds of 3 different doorways. Patient demonstrates shortened stride and a stutter with her right to cross over with her left on 1 occasion, in particular. Therapeutic exercise: Continue with overall BIG exercises. Sustained exercises, adding flicking of the hands and wrists as patient is able with sitting floor to ceiling, 4 reps performed. Sustained exercise sitting side to side, 4 reps performed bilaterally. Attempt to increase elbow flicking with thefinger flicking. Repetitive exercise utilized 2 chairs for stability for patient. Forward step performed, 5 repetitions bilaterally. Sideways step, a chair was provided in front and back, and performed4 repetitions bilaterally. Backward stepping chairs performed both sides, 4 repetitions performed with each. Repetitive forward rocking and reach, 10 repetitions performed bilaterally with chairs providing support as needed on side to side. Sideways reach and rock, 10 repetitions, again with chairs provided both in front and behind patient for safety. Sit to stand, 5 repetitions were performed for functional exercise without limitation. Added functional exercise of shuffling cards today and progressing to working on bridging with the deck when shuffling. Patient performed 8 repetitions today with verbal cues for BIG movements of the hand. Daily carry-over exercise today is putting silverware away in her drawer and/or taking it out as in to set the table. Patient required to step a distance of total of 4 feet with sidestepping from the manager residential to her drawer. Isolated use of clothespins to simulate manipulation of task at home. Verbal cues for sidestepping BIG as well as BIG grabbing movement.Walking BIG, patient performed with 4-wheeled walker today with 4 minutes 15 seconds spent. Verbal cues for stride length and heel strike today offered. In addition, review with patient sit to stand, basic education for safety, and sequencing for squaring up to and from her chair to avoid rotation andfalling. ASSESSMENT: Patient able to perform exercise with limited use of hands for stabilization for sustained repetitive and functional mobility today. Patient increased range of motion with each repetition and confidence throughout her training session today. Patient benefitted from therapy as her symptoms did not increase or change throughout the course of her session today. PLAN: Continue to progress this week, focusing on increasing her length of time walking as well as introducing more movement of her upper body with leg movement and progressing carryover tasks with functional activities that she is able to participate and perform more of at home on a regular consistent basis. ADMINISTRATIVE BILLING: Therapeutic exercise for 62 minutes. Radha Chambers D.P.T./pos Electronically Signed By: RADHA CHAMBERS PT On: 12/18/2014 07:02 AM Source: [facility] MHSDOLBEYNONRADSYS Document Id: [id number] Radha Chambers A.T.R., P.T. - 12/11/2014 12:00 AM CDT [id number] TREATMENT DIAGNOSIS: BIG for Parkinson's. SUBJECTIVE: The patient reports her right shoulder and neck region continues to produce symptoms as does her right knee. The patient indicates her right knee is better today, and she actually forgot towear her knee sleeve. The patient indicates she has been icing regularly of both areas. OBJECTIVE: Therapeutic exercise: Exercises performed for BIG includes sustained sitting floor to ceiling, 4 repetitions bilaterally, sustained sitting side to side 4 repetitions performed bilaterally with finger flicking added for both. Repetitive exercises forward step with finger flex added 4 reps performed lisa aterally, repetitive sideways step 4 performed bilaterally, finger flicks added, repetitive backwards step 4 performed bilaterally, finger flicks added, repetitive forward rock and reach 10 reps performed bilaterally, repetitive sideways rock and reach 10 repetitions performed bilaterally. Functional s it-to-stand BIG 5 reps, side step over large object 5 repetitions bilaterally, seated reach and grabwater bottle 5 repetitions performed bilaterally, shaking dice 5 repetitions bilaterally, throwing dice 5 repetitions performed bilaterally, grabbing dice 5 repetitions performed bilaterally, green foam squeeze 5 repetitions performed bilaterally, walking BIG 4 minutes indoors continuous in addition walking BIG outdoors on the sidewalk greater than 60 m, 2 repetitions, 20 m performed 4 repetitions with cues to continuously step. Daily carry-over shake, roll, scoop dice 5 repetitions bilaterally, daily carry-over standing grabbing, reaching water bottle off the floor 5 repetitions performed bilaterally, daily carry-over retrieve coffee cup out of the cupboard 5 repetitions and adding today daily carry-over retrieve return ice pack from the freezer, walking to and from the chair and sitting down. ASSESSMENT: The patient demonstrates slightly decreased tolerance to arm swing today secondary to increased cervical right shoulder symptoms. The patient also observed and verbally cued with her daily carry-over exercises to square up her hips as she is standing and twisting in a staggered standing posture position contributing to her overall knee symptoms. PLAN: Patient to continue with existing exercises this week, progress next week as patient is able, including quick turns with starts and stops to again address freezing for patient. ADMINISTRATIVE BILLING Therapeutic exercise 56 minutes. Radha Chambers D.P.T./pos Electronically Signed By: RADHA CHAMBERS PT On: 12/15/2014 10:44 AM Source: [facility] MHSDOLBEYNONRADSYS Document Id: [id number] Radha Chambers A.T.R., P.T. - 12/10/2014 12:00 AM CDT [id number] DATE OF SERVICE: 12/10/2014. TREATMENT DIAGNOSIS: BIG for Parkinson's. SUBJECTIVE: The patient indicates she did indeed need to use a 4 wheeled walker area last night for approximately 30 minutes. Then indicated she rested, and then was able to go on and continue her activities including outdoor yard and gardening. The patient indicates her right upper quadrant area is looser today than yesterday, but her right knee continues to plague her with symptoms. The patient continues to utilize ice on her knee. OBJECTIVE Therapeutic exercise: Sustained exercise sitting floor to ceiling 4 reps performed bilaterally. Added bilateral hand flicks, sustained exercise sitting side to side 4 reps performed bilaterally. Addinghand flicks, repetitive exercise forward stepping 4 repetitions performed bilaterally. Repetitive jose daniel eways stepping 4 repetitions performed bilaterally. Repetitive exercise backwards step adding 4 repetitions bilaterally. Repetitive exercise forward rock and reach 10 repetitions performed bilaterally.Repetitive exercise sideways rock and reach 10 repetitions performed bilaterally. Functional exercises include sit to stand, BIG 5 repetitions, stepping over a large object while seated 5 repetitions performed bilaterally. From standing position, reaching and grabbing water bottle on the floor, 5 repetitions performed bilaterally. Shaking the dice 5 repetitions performed bilaterally. Throwing the dice 5 repetitions performed bilaterally. Grabbing the dice 5 repetitions performed bilaterally. Green foam belt buckle maker/ball squeeze 5 repetitions performed bilaterally. Walking BIG 4 minutes today with verbal cues limited from upper extremity use secondary to increased pain. Verbal cues for finding a distant object for upright posture. Daily carry-over, shake rolls scoops the dice, grabbing and reaching objectoff the floor, and today added retrieving a coffee cup out of the cupboard and putting it on a counter. ASSESSMENT: No symptoms provoked in right knee throughout the course of the treatment today. The patient corrects posture positioning to thoracic extension, more neutral posture, with verbal cues for distant visual target. The patient requires greater cues for left hand with finger abduction with scooping up dice compared to right upper extremity. The patient requires cues for body positioning and body mechanics with opening closing cupboards secondary to prevent standing and flexing at the waist reaching. PLAN: The patient to add retrieving coffee cup out of her cupboard and putting on a counter for daily carry over for today. The patient to continue under plan of care for BIG. To continue to perform her exercises as recommended. ADMINISTRATIVE BILLING 63 minutes of therapeutic exercise. Kelby Ramey.P.T./pos Electronically Signed By: RADHA CHAMBERS PT On: 12/15/2014 10:27 AM Source: [facility] SRIDHAR Document Id: [id number] Radha Chambers, Rhiannon, P.T. - 12/09/2014 12:00 AM CDT [id number] DATE OF SERVICE: 12/09/2014. TREATMENT DIAGNOSIS: BIG for Parkinson's. SUBJECTIVE: The patient indicates she did see a chiropractor yesterday and has been using heat for her neck, upper quadrant, and ice for her knee to manage her symptoms. The patient indicates she was able to manage her evening last night without having to use her walker. The patient indicates she did have trouble during the course of the night getting up to go to the bathroom with freezing and being unable to perform her daily carry-over. OBJECTIVE: Patient has visible edema in her right knee, medial aspect, and is wearing a knee sleeve for comfort. Therapeutic exercise: BIG exercise program, sustained sitting 4 to ceiling, 4 reps performed bilaterally, sustained sitting side to side 4 reps performed bilaterally. Verbal cues for posture and knee alignment and BIG finish provided. Repetitive exercise forward step, 4 repetitions performed bilaterally, sideways step 4 repetitions performed bilaterally. Backwards step 4 repetitions performed bilaterally, repetitive forward rock and reach 10 repetitions, repetitive sideways rock and region 10 repetitions performed bilaterally. Functional exercises: Sit to stand, 5 repetitions. Side stepping over a large wood box 5 repetitionsperformed bilaterally. While standing, reaching and grabbing the water bottle 5 repetitions performed bilaterally. Shaking the dice 5 repetitions performed bilaterally. Throwing the dice 5 repetitions performed bilaterally. Grabbing the dice 5 repetitions performed bilaterally, and squeezing a tennis ball 5 repetitions performed bilaterally. Walking Big performed for a total of 4 minutes with modifications made to avoid stamping and focus on equal stride and cues for BIG stride length. Visible limping occurring with decreased push-off on the right lower extremity, compared to the left. Daily carry-over exercise, shake, roll, scoop dice performed bilaterally, and grabbing and reaching an object offof the floor 5 repetitions performed bilaterally. ASSESSMENT: Treatment ceased today secondary to increased soreness with patient and gait exercises and weightbearing closed-chain secondary to increased right knee medial aspect pain. The patient continues to demonstrate increased core control with sitting and reaching exercises. The patient demonstrate toe clearance with backwards step bilaterally without cues today. PLAN: Continue to monitor patient's right knee symptoms and focus on seated and/or upper extremity daily carry-over exercises for management of symptoms. In addition, patient to utilize ice 2 to 3 times a day to manage medial knee pain symptoms as able. ADMINISTRATIVE BILLING Therapeutic exercise, 50 minutes. Radha Chambers D.P.T./stephanie Electronically Signed By: RADHA CHAMBERS PT On: 12/11/2014 09:40 AM Source: [facility]SDOLBEYNONRADSYS Document Id: [id number] Radha Chambers A.T.R., P.T. - 12/08/2014 12:00 AM CDT [id number] TREATMENT DIAGNOSIS: BIG for Parkinson's symptoms. SUBJECTIVE: The patient reports she has been faithful with home exercise program. The patient indicates her right shoulder upper quadrant continues to bother her, and she has a scheduled appointment with chiropractic following her therapy appointment. The patient also identifies her right knee as having been swollen over the weekend and she is utilizing a knee compression brace to manage her symptomseffectively. The patient denies having symptoms when performing exercises. OBJECTIVE BIG exercise program: Sustained sitting floor to ceiling 5 repetitions performed bilaterally. Sustained sitting side to side 5 repetitions performed bilaterally. Repetitive exercise forward step 4 repetitions performed bilaterally. Repetitive sideways step 4 repetitions performed bilaterally. Repetitive backward step performed 4 repetitions bilaterally. Repetitive forward rock and reach for 10 repetitions performed bilaterally. Repetitive sideways rock and reach for 10 repetitions performed bilaterally. Functional sit to stand 5 repetitions. Functional sidestep over large wooden box object 5 repetitions performed bilaterally. Reach and grab water bottle from standing position 5 repetitions. Shaking dice 5 repetitions. Throwing dice 5 repetitions. Grabbing dice 5 repetitions. Tennis ball squeeze 5repetitions performed bilaterally. Daily carryover today shake, roll, scoop dice in introduction to grab, reaching object off of floor such as water bottle. Walking BIG was performed 3-1/2 minutes intro ducing a door threshold to walk through during that time. In addition, the patient taken outdoors and walked 150 yards 2 times with education and cues for objects in the distance and BIG posture on uneven surfaces. ASSESSMENT: The patient managed ambulation with improved posture with cues for distance and object for focal point. The patient managed walking over threshold with BIG walk without issue. No symptoms provoked with right knee during the course of her treatment. PLAN: Continue to progress patient's sustained and repetitive exercises by adding flicking and arm movements for increased challenging. ADMINISTRATIVE BILLING Therapeutic exercise for 50 minutes, gait training for 10. Radha Chambers D.P.T./pos Electronically Signed By: RADHA CHAMBERS PT On: 12/11/2014 09:30 AM Source: [facility]SDOLBEYNONRADSYS Document Id: [id number] Radha Chambers A.T.R., P.T. - 12/04/2014 12:00 AM CDT [id number] Date of service 12/04/2014. TREATMENT DIAGNOSIS: BIG for Parkinson's syndrome. SUBJECTIVE: The patient indicates her daughter complimented her last night while walking with her. The patient indicates her granddaughter is a frankie in high school, a 17-year-old who complimented thepatient in regard to how fast she walked and reporting to her grandmother that is the fastest she seen her walk longer than she can remember. The patient indicates she has increased right knee pain andincreased right upper quadrant symptoms and has scheduled a chiropractic appointment following her physical therapy appointment today. The patient reports she has history of symptoms in her right upperquadrant and feels it is the same in nature. OBJECTIVE Therapeutic exercise. Sustained exercises sitting floor to ceiling 4 repetitions, sustained exercises sitting side to side 4 reps each direction. Repetitive exercise forward step [address] step 4 repetitions each. Backwards step 4 repetitions each. Forward rock and reach 10 repetitions each side. Sideways rock and reach 10 repetitions each side. Functional activity sit to stand 5 repetitions quarter turns performed for 1 complete burns paiute each direction sit and reach 5 repetitions continue to utilize 2 pound dumbbell for prop for target. Side step threshold 5 repetitions performed bilaterally while sitting side step over object 5 repetitions bilaterally. Add today opening closing a water bottle, walking 2 minutes total with 50 seconds no upper extremity patient progressed upper body as able. Daily carry-over reach into the cupboard or refrigerator and grabbing an object out of the cupboard. In treatment today utilized a 3 pounds dumbbell to recreate a half gallon milk. Discussed based on patient's setup at home use of refrigerator and/or a bathroom cupboard grasping a larger container such as a bottle of shampoo or such. ASSESSMENT: Observed patient performed sitting floor to ceiling with upright posture and upright positioning with arms, palms up without verbal cues today performed all 4 repetitions consistently. No symptoms created with generalized exercise in patient's upper quadrant or knee. Knee symptoms created with walking today. The patient demonstrates increased body control with sitting exercises with minimal cues needed for positioning today. PLAN: Progress patient's exercises next week to add flicks with hands and/or elbows to progress patient as able. Continue to progress patient's daily carry- over exercises and include activity related to playing cards and/or dice as she plays once a week with friends and is a scenario out in the community she has anxiety with. ADMINISTRATIVE BILLING Sixty minutes. Debbie RameyPEddieTEddie/pos Electronically Signed By: RADHA CHAMBERS PT On: 12/09/2014 10:49 AM Modified by and Electronically Signed by: RADHA CHAMBERS PT On: 12/09/2014 10:49 AM Source: [facility] MHSDOLBEYNONRADSYS Document Id: [id number] documented in this encounter Miscellaneous Notes Miscellaneous - Conversion, Historical Provider Ser - 12/05/2014 2:39 PM CDT Coding Summary-Paper Based CODING DATE: 12/05/2014 FINAL [facility] STATUS: * Discharged to Home or Self Care PAYOR: Medicare ADMIT DX: REASON FOR VISIT DX: FINAL DX: PRINCIPAL: G20 Parkinson's disease SECONDARY: PROCEDURES DOCTOR NAME DATE NOTE: The code number assigned matches the documented diagnosis and / or procedure in the patient's chart. However, the narrative phrase printed from the coding software may appear abbreviated, or result in slightly different terminology. Coded By: GIOVANNI KHAN Date Saved: 12/05/2014 02:39 pm Source: [employer] Document Id: [id number] documented in this encounter Plan of Treatment Not on filedocumented as of this encounter Visit Diagnoses Not on filedocumented in this encounter
--- OUTSIDE RECORDS SUMMARY | 2021-12-14 22:56 | XMS_ITS | Encounter Summary ---
:1955 Author Organization [facility] Address [address] [place] [address] Care Team Providers Name Role Phone Unavailable Primary Care Provider Unavailable Encounter Details Date Type Department Care Team Description 04/01/2009 Hospital Encounter HX NO MAPPING Social History Tobacco Use Types Packs/Day Years Used Date Smoking Tobacco: Never Assessed Sex Assigned at Date Recorded Not on file documented as of this encounter Plan of Treatment Not on filedocumented as of this encounter Visit Diagnoses Not on filedocumented in this encounter
--- OUTSIDE RECORDS SUMMARY | 2021-12-14 22:56 | XMS_ITS | Encounter Summary ---
:1955 Author Organization [facility] Address [address] [place] [address] Care Team Providers Name Role Phone Unassigned, Provider Primary Care Provider Unavailable Encounter Details Date Type Department Care Team Description 08/26/2009 PN Conversion Only CONV NEUROLOGY Parris Luacs MD [address] [facility] [address] [facility] [address] [place] [id number] (Wo rk) Social History Tobacco Use Types Packs/Day Years Used Date Smoking Tobacco: Never Assessed Sex Assigned at Date Recorded Not on file documented as of this encounter Plan of Treatment Upcoming Encounters Date Type Specialty Care Team Description 06/08/2022 Appointment Neurology Parris Lucas MD [address] [facility] [address] [facility] [address] [id number] (Wo rk) documented as of this encounter Visit Diagnoses Not on filedocumented in this encounter Care Teams Panel Maker Relationship Specialty Start Date End Date Unassigned, Provider PCP - General 03/13/00 03/16/14 [address] [place] [address] documented as of this encounter
--- OUTSIDE RECORDS SUMMARY | 2021-12-14 22:56 | XMS_ITS | Encounter Summary ---
:1955 Author Organization [facility] Address [address] [place] [address] Care Team Providers Name Role Phone Unassigned, Provider Primary Care Provider Unavailable Encounter Details Date Type Department Care Team Description 11/11/2009 PN Conversion Only SABIANIST CONVERSION Social History Tobacco Use Types Packs/Day Years Used Date Smoking Tobacco: Never Assessed Sex Assigned at Date Recorded Not on file documented as of this encounter Plan of Treatment Upcoming Encounters Date Type Specialty Care Team Description 06/08/2022 Appointment Neurology Parris Lucas MD [address] [facility] [address] [facility] [address] [id number] (Wo rk) documented as of this encounter Visit Diagnoses Not on filedocumented in this encounter Care Teams Tufter Operator Relationship Specialty Start Date End Date Unassigned, Provider PCP - General 03/13/00 03/16/[address] [place] [id number] documented as of this encounter
--- OUTSIDE RECORDS SUMMARY | 2021-12-14 22:56 | XMS_ITS | Encounter Summary ---
:1955 Author Organization [facility] Address [address] [place] [address] Care Team Providers Name Role Phone Unassigned, Provider Primary Care Provider Unavailable Encounter Details Date Type Department Care Team Description 08/26/2009 Hospital Encounter [facility] Sarah Celeste MA [address] [place] [address] Social History Tobacco Use Types Packs/Day Years Used Date Smoking Tobacco: Never Assessed Sex Assigned at Date Recorded Not on file documented as of this encounter Medications at Time of Discharge Medication Sig Dispensed Refills Start Date End Date carbidopa-levodopa (AKA Take 2.5 tablets by 240 12 SINEMET) 25-100 MG tablet mouth. LW Comment:3-4 times/day LW Addl Instr:Indicated for: Parkinson Disease DRUG NOT IN COMPUTER 1 each. LW 1 0 12/18/200807/2010 Comment:physical therapy LW Addl Instr:eval and treat for exercise program for Parkinson's disease jf-zgunhkudtm-eiawyfukexz Take 1 tablet by 90 3 12/0408/13/2010 min (FOLTX) 2.5 mg-25 mouth daily (every mg-2 mg tablet 24 hours). unknown medication Indications: PN: 0 03/03/2009 04/28/2010 docusate sodium (AKA Take 1 capsule by 180 3 12/19/19 09 05/31/2013 COLACE) 100 MG capsule mouth daily (every 24 hours). LW Addl Instr:Indicated for: Stool Softener Ergocalciferol (VITAMIN Take by mouth daily 0 02/07/2012 D2) 400 UNITS TABS (every 24 hours). polyethylene glycol 3350 Take 17 g by mouth 255 12 05/31/2013 (AKA GLYCOLAX) daily (every 24 powderIndications: hours). ALEJANDRA Lopez Instr:Dissolve each Jan 17, 2013 10:05 AM prn dose in at least 8 ounces of fluid and drink. documented as of this encounter Progress Notes Parris Lucas MD - 08/26/2009 12:01 AM CDT [facility] [place] Follow-up Examination SUBJECTIVE Current concerns and update : This 54-year-old patient returns to [facility] for follow-up of her Parkinson's disease. I last saw her in February. She has a number of concerns and complaints. She is currently taking Sinemet 25/100, 2 1/2 pills at about 5:30 a.m., 12:30 p.m., and sometime between 5 and 8 p.m.. She notices that she has wearing off of medication effects after about 6 hours. At this time she notices hand tremor, shakiness of the legs, and stiffness with difficulty moving. She also feels slow at night and about one or two nights a week will take an additional dose of Sinemet during the night. She takes her Sinemet before meals, rather than after meals, because she feels it works better that way. Unfortunately she also has long-standing anorexia, which has defied medical diagnosis. She finds that if she takes daniel with her medication, that seems to help. Despite that, however, she has lost 7 or 8 pounds in the last 6 months. 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 She is active with gardening work and household and family activities. She is exercising regularly. Past Medical History Update : No new issues Adverse Drug Reactions: Pt's Adverse Drug Reactions were reviewed today, and updated on the Health Profile of [facility]. Penicillin caused fever Current Medications: Reviewed today and updated on Health Profile in [facility]. Includes folate, MiraLax, Colace, vitamin D, daniel root, Sinemet 25/100, 2 1/2 tablets 3 or 4 times a day. Family History Update: No new information to report Social History Update: No new issues. She continues to live successfully in a private home with her . She does not need any assistive device. Review of Systems: Includes weight loss, urinary urgency, sleep disturbance, and coping concerns. OBJECTIVE: Vital Signs: UPDRS functional score 11. Blood pressure 118/68 sitting, 114/68 standing, weight 157, pulse 60. General: She seemed anxious, and tearful at times. She was somewhat dyskinetic. Neurologic exam : She did quite well on rapid alternating finger and hand movements. Her speech was normal. Her facial expression was animated. Serosa in a chair easily, without using her hands. Her gait was close to normal, with just a little reduction in the arm swing on the right with toe and heel walking. Her postural stability was normal. ASSESSMENT: Stage I Parkinson's disease. I'm concerned that she R. he has some dyskinesia developing 3 years into her disease, and that she is taking large doses of immediate release Sinemet at infrequent intervals, which is a strategy likely to promote dyskinesia. Even though she is comfortable with this regimen, I asked her to try to convert from immediate release Sinemet to controlled release Sinemet, at the same times of the day for now. She will need an immediate release Sinemet along with her first controlled release dose of the day, and she may need an immediate release Sinemet with the second dose as well. But also like to move for away from the high or buzzing, that comes along with the use of immediate acting Sinemet. So in the end she will be taking 3 controlled release Sinemets a day, and 3 or 4 immediate acting sinemets. PLAN: Convert from immediate release to controlled release Sinemet. Return in 6 months. She is to call if she does not like the new pill arrangement. Barriers to care Total time : 25 minutes, 20 minutes of discussion about medications, symptoms, alternatives. CC: Dr. Prakash Pérez. [facility], [address] [place] [address] *SH~DNS~PEM documented in this encounter Plan of Treatment Upcoming Encounters Date Type Specialty Care Team Description 06/08/2022 Appointment Neurology Parris Lucas MD [address] [facility] [address] [place] [address] (Wo rk) documented as of this encounter Visit Diagnoses Not on filedocumented in this encounter Care Teams Lumber Inspector Relationship Specialty Start Date End Date Unassigned, Provider PCP - General 03/13/00 03/16/[address] [place] [id number] documented as of this encounter
--- OUTSIDE RECORDS SUMMARY | 2021-12-14 22:56 | XMS_ITS | Encounter Summary ---
:1955 Author Organization [facility] Address [address] [place] [address] Care Team Providers Name Role Phone Elsewhere, Pcp Primary Care Provider Unavailable Reason for Referral Outpatient (Routine) - Authorized Specialty Diagnoses / Procedures Referred By Contact Refer red To Contact Diagnoses Primary Osteoarthritis Knee Right Sharad Velazquez M.D. [facility] Region Procedures fhs-rjno-wzyvucof-elbow arthrocentesis [address] [place] [address] Referral ID Status Reason Start Date Expiration Date Visits V isits Requested Authorized [id number] Authorized 06/04/2021 06/04/2022 1 1 Outpatient (Routine) - Closed Specialty Diagnoses / Procedures Referred By Contact Refer red To Contact Diagnoses Pain Knee Right Sharad Velazquez M.D. [facility] Region Procedures DX Knee Right 4+ Views [address] [place] [address] Referral ID Status Reason Start Date Expiration Date Visits Requ ested Visits Authorized [id number] Closed 06/04/2021 06/04/2022 1 1 Reason for Visit Reason Comments Consult R knee pain Encounter Details Date Type Department Care Team Description 06/04/2021 Comprehensive Visit Department of Steven Velazquez Kn ee Right (Primary Dx); Orthopedic Surgery Yareli Orourke Primary Osteoarthritis Knee Right [place], [address] [facility] [place] [address] [facility] [address] [place], [place] [phone] (Work) [phone] Social History Tobacco Use Types Packs/Day Years Used Date Smoking Tobacco: Never Sex Assigned at Date Recorded Not on file documented as of this encounter Last Filed Vital Signs Vital Sign Reading Time Taken Comments Blood Pressure - - Pulse 77 06/04/2021 12:47 PM CDT Temperature 36.9 ??C (98.4 ??F) 06/04/2021 12:47 PM CDT Respiratory Rate - - Oxygen Saturation 97% 06/04/2021 12:47 PM CDT Inhaled Oxygen Concentration - - Weight - - Height - - Body Mass Index - - documented in this encounter Procedure Notes Sharad Velazquez M.D. - 06/04/2021 12:30 PM CDTAssociated Order(s): jei-dhft-wdztcviu-elbow arthrocentesis Post-Procedure Diagnose(s): Primary Osteoarthritis Knee Right : injection only Date/Time: 06/04/2021 3:00 PM Performed by: Sharad Velazquez M.D. Authorized by: Sharad Velazquez M.D. PROCEDURE DETAILS Procedure Location knee Patient position: supine Procedural approach: anteromedial Procedure performed: injection only Needle gauge: 21 G, length: 1 1/2 in Procedural Medication The following medications were administered at the target site(s) Local anesthetic: 8 mL lidocaine 10 mg/mL (1 %) Corticosteroid: 80 mg triamcinolone acetonide 40 mg/mL CONSENT Consent obtained: written UNIVERSAL PROTOCOL All relevant documentation and testing were reviewed and available. All required blood products, implants, devices and or special equipment were made available as applicable. Pre-procedure verificationwas conducted and the correct site was marked if required. A fire risk assessment was done as applicable. The procedural time-out was conducted prior to performing the procedure and confirmed in a procedural pause. PRE-PROCEDURE DETAILS Procedure purpose: therapeutic Indications: Osteoarthritis Appropriate hand hygiene, gown, cap, mask, protective eyewear, sterile gloves, skin preparation, sterile drape, and strict aseptic technique were utilized as applicable for the procedure. Site preparation: povidone-iodine SEDATION / ANESTHESIA Anesthesia method: none POST-PROCEDURE DETAILS Procedure completed successfully: yes Complications: no apparent complications Discharge instructions: ice area as needed for comfort and follow-up with ordering provider documented in this encounter Consult Notes Sharad Velazquez M.D. - 06/04/2021 12:30 PM CDT Pain reported: she reports right knee pain REASON FOR CONSULT Darlene Drew is a 65 y.o. female who presents for evaluation of Consult (R knee pain) and is under the care of ELSEWHERE, PCP. HISTORY OF PRESENT ILLNESS Darlene is a 65-year-old woman with Parkinson's disease. She was diagnosed in 2006 has been using a walker for most of the time since that diagnosis. She has had 10 years of intermittent problems in her right knee. It is been much worse for the past month. Her knee swells. Her pain is diffuse and poorly localized. Her knee awakens or 3 nights a week. Her current walking tolerance, with a walker, isapproximally half a block. She is able to negotiate stairs with a hand rail. Her knee has not been giving way or causing her to fall. She has had no recent treatment for the knee. Current Outpatient Medications: ??? acetaminophen (Mapap, acetaminophen,) 500 mg capsule, Take by mouth every 6 (six) hours as needed for pain., Disp: , Rfl: ??? calcium carbonate (calcium carbonate EX) 750 mg (300 mg calcium) chewable tablet, Chew 1 tablet daily., Disp: , Rfl: ??? carbidopa-levodopa (SINEMET CR) 50-200 mg per ER tablet, Take 1 tablet by mouth 2 (two) times a day., Disp: , Rfl: ??? carbidopa-levodopa (SINEMET CR) 50-200 mg per ER tablet, Take 1 tablet by mouth at bedtime., Disp: , Rfl: ??? cholecalciferol (VITAMIN D3) 50 mcg (2,000 Unit) tablet, Take 50 mcg by mouth daily., Disp: , Rfl: ??? denosumab (PROLIA) 60 mg/mL syringe, Inject 60 mg under the skin once., Disp: , Rfl: ??? escitalopram (LEXAPRO) 20 mg tablet, Take 20 mg by mouth daily., Disp: , Rfl: ??? fludrocortisone (FLORINEF) 0.1 mg tablet, Take 0.1 mg by mouth daily. 2 tablets QD, Disp: , Rfl: ??? lidocaine HCL (Aspercreme, lidocaine HCL,) 4 % cream cream, Apply 1 application topically. Applyto topically., Disp: , Rfl: ??? magnesium 200 mg tablet, Take 400 mg by mouth every morning before breakfast., Disp: , Rfl: ??? midodrine (PROAMATINE) 5 mg tablet, Take 5 mg by mouth 2 (two) times a day., Disp: , Rfl: ??? mirtazapine (REMERON) 15 mg tablet, Take 15 mg by mouth at bedtime., Disp: , Rfl: ??? multivit with calcium,iron,min (TAB A LUCIANO ORAL), Take by mouth., Disp: , Rfl: ??? omeprazole (PriLOSEC) [address] capsule, Take 20 mg by mouth every morning before breakfast., Disp: , Rfl: ??? pimavanserin (Nuplazid) 34 mg capsule tablet, Take 34 mg by mouth daily., Disp: , Rfl: ??? sennosides (senna) 8.6 mg tablet, Take 8.6 mg by mouth daily., Disp: , Rfl: Allergies Allergen Reactions ??? Penicillins Other (see comments) ??? Sulfa (Sulfonamide Antibiotics) Other (see comments) Her current list of health issues include: #1 Pain Knee Right #2 Malignant Neoplasm Of Upper Inner Quadrant Of Female Breast Laterality Unknown (HCC) Her surgical history is notable for: Past Surgical History: Procedure Laterality Date ??? OTHER CONVERTED SHX (SEE COMMENT) N/A 03/26/2009 >Esophagogastroduodenoscopy with biopsies. ??? OTHER CONVERTED SHX (SEE COMMENT) N/A 07/14/2006 >Esophagogastroduodenoscopy with Biopsy Tobacco history is Social History Tobacco Use Smoking Status Never Smoker Smokeless Tobacco Not on file . The following portions of the patient's history were reviewed and updated as appropriate: allergies,current medications, family history, medical history, social history, surgical history and problem list. REVIEW OF SYSTEMS Neurological: Positive for disturbances in coordination, loss of balance or tendency to fall easily and unsteady gait. The following systems were negative: Constitutional, Skin, Eyes, ENT, CV, Respiratory, GI, Endo, ,Hematologic, Psych, Allergy/Immuno OBJECTIVE PHYSICAL EXAM Ortho Exam Darlene is alert and oriented in no apparent distress. She is breathing comfortably on room air, her affect is appropriate. Her hearing is intact to the spoken word. Her movement disorder is quite evident this afternoon. She is able to arise from a chair and walked well with her wheeled walker. Her knee appears to be in valgus. She has a slight effusion. She has full extension, she can flex beyond 120??. There is no calf swelling. She has good pulses in the foot, and she demonstrates normal sensory motor function distally. DIAGNOSTICS No results found for: INR, HGBA1C, SEDRATE, CRP IMAGING I ordered and interpreted x-rays of her right knee, including standing AP, standing tunnel, lateral,sunrise views. She has advanced valgus osteoarthritis, is epbq-ad-uogn in the lateral compartment, where there also large peripheral osteophytes. She is also osteopenic. ASSESSMENT / PLAN #1 Pain Knee Right Darlene has advanced osteoarthritis of the knee. We will start with conservative management, starting with a steroid injection. We discussed the possibility of a knee replacement in the future, but Imade sure that she and her son understood that knee replacement recovery is more difficult for patients with a movement disorder like Parkinson's disease. She will follow up with his needed. Please seethe procedure note. documented in this encounter Plan of Treatment Not on filedocumented as of this encounter Procedures Procedure Name Priority Date/Time Associated Diagnosis Comme nts LARGE JOINT Routine 06/04/2021 3:00 PM Primary Osteoarthritis Results for this INJECTION CDT Knee Right procedure are i n the results section. documented in this encounter Results ewk-ykjc-mvfyokpe-elbow arthrocentesis (06/04/2021 3:00 PM CDT) Narrative [facility] - 06/04/2021 3:00 PM CDT Sharad Velazquez M.D. ? 06/04/2021 ??3:01 PM : injection only Date/Time: 06/04/2021 3:00 PM Performed by: Sharad Velazquez M.D. Authorized by: Sharad Vealzquez M.D. PROCEDURE DETAILS Procedure Location e e Patient position: supine Procedural approach: anteromedial Procedure performed: injection only Needle gauge: 21 G, length: 1 1/2 in Procedural Medication The following medications were administe red at the target site(s) Local anesthetic: 8 mL lidocaine 10 mg/m L (1 %) Corticosteroid: 80 mg triamcinolone acet onide 40 mg/mL CONSENT Consent obtained: written UNIVERSAL PROTOCOL All relevant documentation and testing w ere reviewed and available. All required blood products, implants, devic es and or special equipment were made available as applicable. Pre-proced ure verification was conducted and the correct site was marked if required. A fire risk assessment was done as applicable. The procedural time-out w as conducted prior to performing the procedure and confirmed in a procedu ral pause. PRE-PROCEDURE DETAILS Procedure purpose: therapeutic Indications: Osteoarthritis Appropriate hand hygiene, gown, cap, mas k, protective eyewear, sterile gloves, skin preparation, sterile drape, and strict aseptic technique were utilized as applicable for the procedure . Site preparation: povidone-iodine SEDATION / ANESTHESIA Anesthesia method: none POST-PROCEDURE DETAILS Procedure completed successfully: yes Complications: no apparent complications ?? Discharge instructions: ice area as need ed for comfort and follow-up with ordering provider Sharad Velazquez M.D. PROCEDURE/MINOR SURGICAL ORD ERABLES Performing Organization Address City/State/ZIP Code Phon e Number MMODAL [facility] NA DX Knee Right 4+ Views (06/04/2021 1:29 PM CDT) Anatomical Region Laterality Modality Lower Extremity, Knee, Musculoskeletal RST LOS, Right Digital Radiography Musculoskeletal ARZ LOS, Muskuloskeletal FLA LOS Specimen (Source) Anatomical Collection Method Collection Time Re ceived Time Location / / Volume Laterality 06/04/2021 1:39 PM CDT Impressions 06/04/2021 1:42 PM CDT 1. Moderate degenerative osteoarthritis primarily involving the lateral compartment and patellofemoral joint with mild associate d genu valgus. 2. Moderate degenerative narrowing of th e medial compartment of the left knee. Narrative 06/04/2021 1:42 PM CDT EXAM: DX KNEE RIGHT 4+ VIEWS COMPARISON: None FINDINGS: There is a moderate right knee joint effusion. No fractures or destructive lesion is identified. There is moderately severe d egenerative osteoarthritis primarily involving the lateral compartment and patellofemoral joint wit h mild associated genu valgus. Incidentally visualized left knee on the AP, PA, and sunrise views de monstrates moderate degenerative narrowing of the medial compartment. Procedure Note Noble Otero Jr., M.D. - 2021 EXAM: DX KNEE RIGHT 4+ VIEWS COMPARISON: None FINDINGS: There is a moderate right knee joint effusion. No fractures or destructive lesion is identified. There is moderately severe d egenerative osteoarthritis primarily involving the lateral compartment and patellofemoral joint wit h mild associated genu valgus. Incidentally visualized left knee on the AP, PA, and sunrise views de monstrates moderate degenerative narrowing of the medial compartment. IMPRESSION: 1. Moderate degenerative osteoarthritis primarily involving the lateral compartment and patellofemoral joint with mild associate d genu valgus. 2. Moderate degenerative narrowing of th e medial compartment of the left knee. Sharad [facility]E GRANT documented in this encounter Visit Diagnoses Diagnosis Pain Knee Right - Primary Primary Osteoarthritis Knee Right Pain Knee Right documented in this encounter Administered Medications Inactive Administered Medications - up to 3 most recent administrations Medication Order MAR Action Action Date Dose Rate Site lidocaine 10 mg/mL (1 %) injection 8 Given 06/04/2021 3:00 PM CD T 8 mL mL (XYLOCAINE) 8 mL, infiltration, One-Time Injection, Starting on Mon06/04/21 at 1500, For 1 dose triamcinolone acetonide injection 80 mg Given 06/04/2021 3:00 PM CDT 80 mg (KENALOG-40) 80 mg, intra-articular, One-Time Injection, Starting on Mon06/04/21 at 1500, For 1 dose documented in this encounter Care Teams Product Line Manager Relationship Specialty Start Date End Date Elsewhere, Pcp PCP - General Agricultural And Forestry Supervisor 03/20/19 documented as of this encounter
--- OUTSIDE RECORDS SUMMARY | 2021-12-14 22:56 | XMS_ITS | Encounter Summary ---
:1955 Author Organization [facility] Address [address] [place] [address] Care Team Providers Name Role Phone Unavailable Primary Care Provider Unavailable Encounter Details Date Type Department Care Team Description 11/20/2014 - Hospital Encounter HX [facility] ED PT Parris Lucas M.D. 12/03/2014 [address] [place] [id number] (Wo rk) Social History Tobacco Use Types Packs/Day Years Used Date Smoking Tobacco: Never Assessed Sex Assigned at Date Recorded Not on file documented as of this encounter Progress Notes Radha Chambers, A.T.R., P.T. - 12/03/2014 12:00 AM CDT [id number] TREATMENT DIAGNOSIS: BIG for Parkinson's. SUBJECTIVE: The patient indicates she did perform her exercises when she got home last evening and then did play BunNubee last night. The patient indicates having to require assistance to get from 1 tableto the next for Bunko. Patient indicates she rested on the couch for a while after playing Bunko before proceeding home. The patient reports following her rest she was able to get up without issues andreturn home safely. The patient identifies requiring approximately an hour after her appointments torecover from her appointment. OBJECTIVE Therapeutic exercise: Sustained exercises sitting floor to ceiling 4 reps. Sustained sitting side toside 4 reps performed bilaterally. Repetitive forward step 4 times each, repetitive sideways step up4 times each, repetitive backward step 4 times each, repetitive forward rock and reach 10 times eachside, repetitive sideways rock and reach 10 times each side, functional lxl-ov-cumwj BIG 4 repetitions. Functional quarter turns 4 repetitions to the left, 4 repetition turns to the right. Functional sit and reach 5 repetitions utilizing water bottle as prop. Side stepping over the threshold 5 repetitions performed each. While sitting side step over object approximately 5 inches high, 5 repetitions bilaterally. Walking BIG for 2 minutes total time continuous, 1st minute no arms, 2nd minute both armsand legs. Daily carry over bed to bathroom BIG walk with focus on during the night as patient gets up and goes to the bathroom during the night to focus on carry-over from walking BIG, clearing the threshold from the bathroom as well as continue to do the recliner to kitchen BIG walk. Patient improves with her speed as well as range of motion with rotation specifically sideways rock and reach. Patient involuntarily adds arms to the first minute of BIG walk when not focused on it demonstrating an upright standing posture with equal stride for greater repetitions. PLAN: Patient to continue under existing plan of care with added daily carry- over exercises today. If patient is dizzy with quarter turns as part of her functional exercise, the patient to perform another exercise in between before performing the opposite direction. ADMINISTRATIVE BILLIN minutes of therapeutic exercise. Radha Chambers D.P.T./pos Electronically Signed By: RADHA CHAMBERS PT On: 12/09/2014 07:41 AM Source: [facility] MHSDOLBEYNONRADSYS Document Id: [id number] Radha Chambers A.T.R., P.T. - 12/02/2014 12:00 AM CDT [id number] DATE OF SERVICE: 12/02/2014. SUBJECTIVE: The patient reports she was feeling very overwhelmed last night in an attempt to performexercises. The patient reports she felt emotional and frustrated, and felt that the big exercise program may be more challenging than she originally thought. The patient also identifies having issues stepping with her left lower extremity again last night, as she was more emotional, more stressed and more fatigued. Patient indicates she did take anxiety medicine this morning to prevent issues due to increased stress regarding therapy. OBJECTIVE Therapeutic exercise: Reviewed with patient generalized goals. Review with the patient generalized exercise program and homework assignments. Reviewed definition of homework. Reassess and re-explain asneeded. Review packet provided, provide additional handouts for patient for clarification with better pictures. Perform home exercise program, including stand, repetitive and functional exercises, sustain, were hold for 10 seconds, four repetitions performed bilateral direction. Repetitive exercise 4 repetitions performed bilateral forward rock and reach, 10 performed bilateral. Sideways rock and reac h 10 performed bilateral. Functional activities sit to stand, performed 5 repetitions. Readjusted quarter turns to 4 repetitions, 1 direction due to functional demands. Sit and reach using water bottleas target and propped for visual aid, 5 repetitions performed bilaterally. Sidestepping using threshold as visual aid, 5 reps performed bilaterally. Walking big, timed for 2 minutes. Verbal cues, constant for left lower extremity. Daily carry-over activity, recliner to kitchen with big walk approximately 15 feet at home. ASSESSMENT: The patient fatigues with 2 minutes of walking big. Verbal cues, motivate patient positively with left lower extremity for increased stride. Patient's questions answered in regards to stress and expectations regarding program. PLAN: Patient demonstrates and verbalizes increased comfort with exercises, expectations and plans to continue as directed with exercises tonight before returning tomorrow for her next appointment. Thepatient to focus on her daily carry-over from recliner to kitchen with big walk. ADMINISTRATIVE BILLING Fifty-eight minutes of therapeutic exercise. Eveline RameyTEddie/pos Electronically Signed By: RADHA CHAMBERS PT On: 12/04/2014 07:22 AM Source: [facility] MHSDOLBEYNONRADSYS Document Id: [id number] Radha Chambers A.T.R., P.T. - 12/01/2014 12:00 AM CDT [id number] DATE OF SERVICE: 12/01/2014. TREATMENT: BIG therapy for Parkinson's. SUBJECTIVE: The patient indicates she had episodes over the weekend while playing cards with friendswhere she froze up completely. The patient reports it required her retrieving the wheelchairto remove her from the situation. The patient reports she continues to freeze at thresholds as well. OBJECTIVE: THERAPEUTIC EXERCISE: Instructed and introduced to all exercises today include hmt-dm-kerwb exercises sitting floor to ceiling 10 repetitions performed sitting side to side, 10 repetitions performed. Repetitive exercise forward step 8 performed bilaterally, sideways stepping 8 repetitions performed bilaterally, backwards stepping 8 repetitions performed bilaterally, forward rocking and reaching 10 repetitions each side, sideways rock and reach 10 repetitions performed each time. Functional exercisessit to stand BIG 5 repetitions, quarter turns 5 repetitions performed bilaterally. Walking BIG with instruction demonstration patient walked BIG for continuous for 2 minute in addition to introduction and education review home exercise program recording and monitoring to continue immediately beginningtoday. ASSESSMENT: Observe patient progress with repetitions in achieving improved range of motion overall.The patient remains greatest challenge with left lower extremity with side stepping more unstable. The patient experienced 1 near fall and the end when she was fatigued when she was returning to her chair. PLAN: The patient to begin home exercise program performing 2 times before appointment tomorrow. Progress functional and daily carry-over tomorrow to her 2nd session. ADMINISTRATIVE BILLING: Therapeutic exercise 60 minutes. Eveline RameyT./pos Electronically Signed By: RADHA CHAMBERS PT On: 12/03/2014 10:12 AM Source: [facility] MHSDOLBEYNONRADSYS Document Id: [id number] documented in this encounter Consult Notes Radha Chambers A.T.R., P.T. - 11/20/2014 12:00 AM CDT [id number] DATE: 11/20/2014 SUBJECTIVE: Referring Physician: Dr. Parris Lucas. Medical diagnosis: Parkinson's. History: The patient was diagnosed with Parkinson's in 2006. The patient has demonstrated progression of symptoms neurologically with her greatest complaint being freezing. The patient identifies weather as a factor that tie into her frequency and flare of symptoms. Patient recognizes in warm weather she has decreased symptoms. The patient also identifies increased stress as a trigger for her symptoms. The patient reports she is also observed to progression of symptoms including tremors in her left hand and left leg, most notable when her medication is decreasing. Patient's goals: Able to speak good and to walk better. EXAMINATION: Observation: Observed patient perform sit to stand, use of hands. The patient ambulates in a guardedfashion from waiting area to the treatment room. The patient sits immediately upon achieving her goal destination. The patient is observed using upper extremity for transfers. Range of motion: General range of motion throughout patient's upper, lower extremities appears within functional limits. Manual muscle testing: No formal assessment taken. The patient observed to move antigravity throughout her upper and lower extremities bilaterally. Pain: Patient denies symptoms. Special tests and outcome measures: A Barrow balance scale was performed. Patient measured a 47/56 andABC scale activity specific balance confidence scale was performed. The patient's range varied from task to task. Timed up and go, patient's time was 11.47 seconds. Sit to stand, 5 repetitions, the patient's time 12.86 seconds. Neurological evaluation: The patient intact today for light touch compared throughout 4 extremities. Gait/balance: See Barrow balance scale as well as the patient's gait performed without assistive device or deviations. TREATMENT: Treatment consisted of approximately 80 minutes total, consisting of evaluation as well as neuromuscular re-education for 30 minutes. Functional tests were readministered for baseline for further treatment. In addition, lengthy explanation as to expectations with utilization of BIG program for her Parkinson's diagnosis. ASSESSMENT: The patient is a 59-year-old female with a current diagnosis of Parkinson's disease. The patient hasan 8-year history with progression of symptoms. The patient's symptoms include freezing, tremors, aswell as generalized weakness, difficulty manipulating with her right upper extremity, in particular the patient's greatest symptom relates to her left lower extremity as it freezes and locks up. The patient demonstrates limitations with ambulating in the community secondary to fear and anxiety of whenher symptoms will occur. Patient also identifies thresholds of doorways as an issue for her with managing ambulation. The patient would benefit from physical therapy at this time, utilizing the BIG program which emphasis focus is for Parkinson disease. Prognosis for improvements: Fair secondary to patient's current neurological status. The patient remains extremely motivated to try and reduce and manage her symptoms in any fashion. The patient also has family support to pursue. PLAN: At the current time, patient will begin with formal exercise consisting of 4 days a week, 1 hour at a time for 4 weeks. In addition, consistent with that, patient will be provided a home exerciseprogram to continue with the exercises provided, as well as a functional mobility pattern to dissectand re-create for the patient to improve upon for safety. The specific pattern will be based on patient's needs and related functional mobility at home. SHORT-TERM GOALS: 1. Patient will be consistent and compliant with home exercise program, performing it 2 times a weekas per plan of care, one week. 2. Patient will improve her time for the 5 times bkb-ir-ooqar test by 1 second, 3 weeks. LONG-TERM GOALS: 3. Patient will be able to increase her Barrow balance scale by greater than 6 points in 4 weeks. 4. Patient will improve her overall activity specific balance confidence scale by greater than 20%, 4 weeks. 5. The patient will be independent with home exercise program for patient to continue independently to better manage her overall Parkinson's symptoms in regards to ambulation and maintenance of strength and overall flexibility, 5 weeks. Debbie MccarthyP.T./pos I have reviewed this plan of treatment and certified continuing need for services. Please sign this plan of care and return it in a self-addressed enclosed stamped envelope with a signature line following it. Electronically Signed By: RADHA CHAMBERS PT On: 11/28/2014 03:48 PM Modified by and Electronically Signed by: RADHA CHAMBERS PT On: 11/28/2014 03:48 PM Source: [facility] MHSDOLBEYNONRADSYS Document Id: [id number] documented in this encounter Miscellaneous Notes Miscellaneous - Conversion, Historical Provider Ser - 11/26/2014 1:31 PM CDT Coding Summary-Paper Based CODING DATE: 11/26/2014 FINAL [facility] STATUS: * Discharged to Home or Self Care PAYOR: [employer] ADMIT DX: REASON FOR VISIT DX: FINAL DX: PRINCIPAL: V57.1 Care Involving Other Physical Therapy SECONDARY: 332.0 Paralysis Agitans PROCEDURES DOCTOR NAME DATE NOTE: The code number assigned matches the documented diagnosis and / or procedure in the patient's chart. However, the narrative phrase printed from the coding software may appear abbreviated, or result in slightly different terminology. Revised Coded By: GIOVANNI KHAN Revised Date Saved: 11/26/2014 01:31 pm Source: [facility] POWERCHART Document Id: [id number] documented in this encounter Plan of Treatment Not on filedocumented as of this encounter Visit Diagnoses Not on filedocumented in this encounter
--- OUTSIDE RECORDS SUMMARY | 2021-12-14 22:56 | XMS_ITS | Encounter Summary ---
:1955 Author Organization [facility] Address [address] [place] [address] Care Team Providers Name Role Phone Unassigned, Provider Primary Care Provider Unavailable Encounter Details Date Type Department Care Team Description 03/03/2009 PN Conversion Only CONV NEUROLOGY Parris Lucas MD [address] [facility] [address] [facility] [address] [place] [phone] (Wo rk) Social History Tobacco Use Types Packs/Day Years Used Date Smoking Tobacco: Never Assessed Sex Assigned at Date Recorded Not on file documented as of this encounter Plan of Treatment Upcoming Encounters Date Type Specialty Care Team Description 06/08/2022 Appointment Neurology Parris Lucas MD [address] [facility] [address] [facility] [place] [address] (Wo rk) documented as of this encounter Visit Diagnoses Not on filedocumented in this encounter Care Teams Medical Receptionist Relationship Specialty Start Date End Date Unassigned, Provider PCP - General 03/13/00 03/16/14 [address] [place] [address] documented as of this encounter
--- OUTSIDE RECORDS SUMMARY | 2021-12-14 22:56 | XMS_ITS | Encounter Summary ---
:1955 Author Organization [facility] Address [address] [place] [address] Care Team Providers Name Role Phone Elsewhere, Pcp Primary Care Provider Unavailable Reason for Referral Outpatient (Routine) - Closed Specialty Diagnoses / Procedures Referred By Contact Refer red To Contact Diagnoses Pain Knee Right Sharad Velazquez M.D. [facility] Region Procedures DX Knee Right 4+ Views [address] [place] [address] Referral ID Status Reason Start Date Expiration Date Visits Requ ested Visits Authorized [id number] Closed 06/04/2021 06/04/2022 1 1 Reason for Visit Outpatient (Routine) - Closed Specialty Diagnoses / Procedures Referred By Contact Refer red To Contact Diagnoses Pain Knee Right Sharad Velazquez M.D. [facility] Region Procedures DX Knee Right 4+ Views [address] [place] [address] Referral ID Status Reason Start Date Expiration Date Visits Requ ested Visits Authorized [id number] Closed 06/04/2021 06/04/2022 1 1 Encounter Details Date Type Department Care Team Description 06/04/2021 Hospital Encounter Department of [facility] in [address] [place] [address] [place], [place] [phone] (Work) [phone] Social History Tobacco Use Types Packs/Day Years Used Date Smoking Tobacco: Never Sex Assigned at Date Recorded Not on file documented as of this encounter Medications at Time of Discharge Medication Sig Dispensed Refills Start Date End Date acetaminophen (TYLENOL) Take by mouth every 0 500 mg capsule 6 (six) hours as needed for pain. calcium carbonate (TUMS Chew 1 tablet daily. 0 E-X) 750 mg (300 mg calcium) chewable tablet cholecalciferol (VITAMIN Take 50 mcg by mouth 0 D3) 50 mcg (2,000 Unit) daily. tablet denosumab (PROLIA) 60 Inject 60 mg under 0 mg/mL syringe the skin once. escitalopram (LEXAPRO) 20 Take 20 mg by mouth 0 mg tablet daily. fludrocortisone Take 0.1 mg by mouth 0 (FLORINEF) 0.1 mg tablet daily. 2 tablets QD lidocaine HCL Apply 1 application 0 (ASPERCREME) 4 % cream topically. Apply to cream topically. magnesium 200 mg tablet Take 400 [...] capsule every morning before breakfast. pimavanserin (NUPLAZID) Take 34 mg by mouth 0 34 mg capsule tablet daily. sennosides (SENOKOT) 8.6 Take 8.6 mg by mouth 0 mg tablet daily. carbidopa-levodopa Take 1 tablet by 0 10/21/2021 (SINEMET CR) 50-200 mg mouth 2 (two) times per ER tablet a day. carbidopa-levodopa Take 1 tablet by 0 10/21/2021 (SINEMET CR) 50-200 mg mouth at bedtime. per ER tablet documented as of this encounter Plan of Treatment Not on filedocumented as of this encounter Procedures Procedure Name Priority Date/Time Associated Comments Diagnosis DX KNEE RIGHT 4+ RAD - Routine 06/04/2021 1:29 Pain Knee Right Resu lts for this VIEWS (most inpatients PM CDT procedure a re in and all the results outpatients) section. documented in this encounter Results DX Knee Right 4+ Views (06/04/2021 1:29 [...] encounter Visit Diagnoses Diagnosis Pain Knee Right documented in this encounter Care Teams Veterinary Assistant Relationship Specialty Start Date End Date Elsewhere, Pcp PCP - General Core Shaper Sides 03/20/19 documented as of this encounter
--- OUTSIDE RECORDS SUMMARY | 2021-12-14 22:56 | XMS_ITS | Encounter Summary ---
:1955 Author Organization [facility] Address [address] [place] [address] Care Team Providers Name Role Phone Unavailable Primary Care Provider Unavailable Encounter Details Date Type Department Care Team Description 10/10/2012 Hospital Encounter HX [facility] Prakash Lugo M.D. [address] [place], [place] [address] (Wo rk) Social History Tobacco Use Types Packs/Day Years Used Date Smoking Tobacco: Never Assessed Sex Assigned at Date Recorded Not on file documented as of this encounter Miscellaneous Notes Miscellaneous - Conversion, Historical Provider Ser - 10/10/2012 10:03 AM CDT Patient Education - Astrobiologist Patient Education - Astrobiologist Entered On: 10/10/2012 10:49 CDT Performed On: 10/10/2012 10:03 CDT by SARMAD MEJIAS RD Education Nutrition Education Grid Nutrition Education Topics : General nutrition, High fiber diet, Low fat diet, Planned sample menu (Comment: Reviewed the need for adequate calcium and Vit D to prevent osteoporosis as individuals withParkinsons are at a greater risk for osteoporosis and falls due to balance. Since Dx patient has lost a considerable amount of weight. To prevent weight loss, stressed the need to have three meal/day or smaller meals more frequently as she occasionally has stomach problems (it hurts to eat) and skips meals. Prilosec did not help so she discontinued use. Discussed swallowing issues and oral hygiene due to dry mouth. Suggested Biotene toothpaste and she is presently using the mouthwash. Discussed the avoidance of Flava beans as a chemical in the beans can mimic levodopa. She does not eat Flava beans. Discussed adequate fiber to reduce constipation issues. Constipation is better since the addition of Almesed. Discussed how to flavor if she adds a small amount of oil to increase Kcals. Discussed low sat/trans fat diet, low sugar and low salt. Jessica does not eat a lot of sugar or salt. Discussed discussing some aspects of the diet with Dr. Sanches and her neurologist. Specifically CoQ10 and caffeine. In a small study caffeine was shown to help with Parksinson's symptoms. Since caffeine in the amount recommended in the study is not considered harmful suggested she try it. Suggested quality protein at each meal and discussed options. Also suggested probiotics and she is presently on omega 3s. Sinceshe is not eating well at this time, daughter suggested a good multivit and I agreed. Suggested not to go over 100% in the pill she selects. She will purchase at the [employer]. Gave printed material and advised patient to call if questions. [SARMAD MEJIAS RD - 10/10/2012 10:03 CDT] ) Individuals Taught : Patient, Daughter Barriers to Learning : None evident (Comment: Daughter is helping mom and even researching the disease on the internet. [SARMAD MEJIAS STEPHEN - 10/10/2012 10:03 CDT] ) Teaching Method : Explanation, Printed materials Teaching Evaluation : Verbalizes understanding Education Referral Made To : Other: Speech theraphist if swallowing becomes more of an issue to to discuss with Dr. Sanches or her neurologist. Comments (Comment: Patient stated, that her learning goals/needs were met. [SARMAD MEJIAS RD - 10/10/2012 10:03 CDT] ) SARMAD MEJIAS RD - 10/10/2012 10:03 CDT Source: [facility] POWERCHART Document Id: [id number] CDT!10 documented in this encounter Plan of Treatment Not on filedocumented as of this encounter Visit Diagnoses Not on filedocumented in this encounter
--- OUTSIDE RECORDS SUMMARY | 2021-12-14 22:56 | XMS_ITS | Encounter Summary ---
:1955 Author Organization [facility] Address [address] [place] [address] Care Team Providers Name Role Phone Unassigned, Provider Primary Care Provider Unavailable Reason for Visit Reason Comments Other Encounter Details Date Type Department Care Team Description 10/12/2009 Telephone CONV NEUROLOGY Africa Lucas MD Other [address] [place] [address] [address] [facility] [id number] (Wo rk) Social History Tobacco Use Types Packs/Day Years Used Date Smoking Tobacco: Never Assessed Sex Assigned at Date Recorded Not on file documented as of this encounter Progress Notes Darío Smith RN - 10/12/2009 9:52 AM CDT Phone Note filed by Darío Smith RN at 06/26/10 0455 Author: Darío Smith RN Service: (none) Author Type: Registered Nurse Filed: 06/26/10 143 Note Time: 10/12/09951 Status: Signed Nail Setter: Darío Smith RN (Registered Nurse) Called she has been thinking about applying for SS Disablility,wondering how to initiate process she didn't know if we do that for her or if she does. I told her that she would be responsible for applying, they would typically request a letter or forms from the doctor that she would need to sign a release form for. I also provided Tiera Choudhury's number and said she could gets some guidance from her upon her return. [phone]. Created on 12Oct2009 9:52am by DARÍO SMITH Acknowledged by AFRICA LUCAS on 11:47am IX BATH ATTENDANT documented in this encounter Plan of Treatment Upcoming Encounters Date Type Specialty Care Team Description 06/08/2022 Appointment Neurology Africa Lucas MD [address] [facility] [address] [facility] [address] (Wo rk) documented as of this encounter Visit Diagnoses Not on filedocumented in this encounter Care Teams [employer] Marshal Relationship Specialty Start Date End Date Unassigned, Provider PCP - General 03/13/00 03/16/[address] [place] [address] documented as of this encounter
--- OUTSIDE RECORDS SUMMARY | 2021-12-14 22:56 | XMS_ITS | Encounter Summary ---
:[address] [facility] [facility] Address [address] [place] [address] Care Team Providers Name Role Phone Unassigned, Provider Primary Care Provider Unavailable Encounter Details Date Type Department Care Team Description 12/18/2008 Therapy [facility] Kimberly Mcbride, BAR WAITER/WAITRESS [address] [place] [address] [place] [address] (Wo rk) Social History Tobacco Use Types Packs/Day Years Used Date Smoking Tobacco: Never Assessed Sex Assigned at Date Recorded Not on file documented as of this encounter Progress Notes Parris Lucas MD - 12/18/2008 12:01 AM CDT Progress Notes signed by Parris Lucas MD at 01/04/09 1832 Author: Parris Lucas MD Service: (none) Author Type: Physician Filed: 06/26/10 1713 Note Time: 12/18/08 0001 Status: Signed Internet Marketing Manager: Parris Lucas MD (Physician) Occupational Therapy Plan of Care: Certification/HCFA 700. Initial Certification Period: , 12/18/2008 to 01/15/09 Initial Status: Referring Physician: Dr. Parris Lucas. Primary Diagnosis: Parkinson's Disease (332.0). Reason for Referral: Assessment Clinic (Physical Therapist, Occupational Therapist, Speech and Language Pathologist, Commercial Airline Pilot, Registered Nurse, MD). OBJECTIVE: Body Bradykinesia and Hypokinesia: United Parkinson's Disease Rating Scale (UPDRS)(Combining slowness, hesitancy, decreased armswing, small amplitude, and poverty of movement in general). -Left Upper Extremity: 3=Moderate slowness, poverty or small amplitude of movement. -Right Upper Extremity: 3=Moderate slowness, poverty or small amplitude of movement. Cognitive Status: -Cognitive status per report: MMSE = 29/30 per RN report Activities of Daily Living: (UPDRS) : -Handwriting: Moderately slow or small; all words are legible (2). -Cutting Food: Somewhat slow and clumsy, but no help needed (1). -Dressing: Somewhat slow, but no help needed (1). -Hygiene: Somewhat slow, but no help needed (1). -Turning in bed: Somewhat slow and clumsy, but no help needed (1). -Falling:None (0). -Freezing when walking: None (0). -Medication management: Forgets to follow prescribed schedule. PDQ-39 (Parkinson's Disease Quality of Life Questionnaire) Score: self report -Had difficulty showering/bathin-Rarely (1). -Had difficulty dressing: Sometimes (2). -Had difficulty with buttons or shoelaces: Sometimes (2). -Had problems writing clearly: Sometimes (2). -Had difficulty cutting up your food: Sometimes (2). -Had difficulty holding a drink without spillin-Never (0). Physical Performance Test (PPT): (Comparison with independent living seniors, average age 79) =70% Parkinson's Activity Scale (PAS): -Lying down in bed: Normal, without apparent difficulties. -Rolling onto side: 2 difficulties, with turning or shifting trunk or reaching adequate end position. -Rising from bed: 1 difficulty, with moving legs or trunk or reaching adequate end position. After instruction in optimal body mechanics and use of satin draw sheet client demonstrated performance on PAS as: lying down-0; rolling onto side-1; rising-0 Observations During Testing: Clinical Global Impression: Overall, how would you rate your ability to perform self-cares (e.g. dressing, eating, getting in and out of bed) BEFORE your appointment today? (0=excellent-10=poor): writing-6 Overall, how would you rate your ability to perform self-cares (e.g. dressing, eating, getting in and out of bed) AFTER your appointment today? (0=excellent-10=poor): ASSESSMENT: Therapist Impression: Receptive to instruction and recommendations. Motivated to preserve/enhance function wellness. 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 She is active and walks for exercise. She reports forgetting at times to take Parkinson's medications. Education provided on methods and adaptive equipment to facilitate compliance with medication schedule, upper body stretching exercises, bed mobility and methods to increase legibility of handwriting. Impairments: Decreased ADL performance. Bradykinesia. Motor fluctuations. Tremor. Functional Limitations: Bed mobility. Bed transfers. Handwriting. Medication management. Possible Barriers to Goal Achievement: Distance from clinic. Rehab Prognosis: Excellent for established goals. PLAN Planned Treatment: ADL/home program training. Adaptive equipment recommendations. Compensatory ADLs. Cuing strategies. Education. Therapeutic exercise - range of motion. Education: Wellness program. Interdisciplinary Referrals: Consult with social studies department chair. Frequency/Duration: 1X visit. Estimated Discharge: 1 session. Consent: Results of evaluation were reviewed with patient. Patient was receptive to treatment plan and participated in setting goals. Risks, benefits and alternatives to treatment were reviewed. Expected Functional Outcomes: -Patient/Care-partner to verbalize/demonstrate understanding to facilitate independence and safety in turning in bed and adjusting bedclothes in 1 session. -Patient/Care-partner to verbalize/demonstrate safety and maximum independence for bed transfers in 1 session. -Patient/Care-partner to demonstrate increase in functional legibility of handwriting in 1 session. -Patient/Care-partner verbalize/demonstrate a system for medication self management in 1 session. -Patient/Care-partner to verbalize/demonstrate understanding of exercise program for improved independence in ADL's: Range of motion, in 1 session. . The physician electronic signature certifies the medical necessity for this plan of care while under his/her care. Therapist Signature: SUDHA Arzola, [id number], 12/18/2008 *SH~REHAB~POC ~ Shorthand Note completed on: 12/18/2008 1:33 PM Yosvany Hidalgo OTR/L - 12/18/2008 12:01 AM CDT Progress Notes signed by JOSE Sinclair/Katrin at 01/04/09 1331 Author: Yosvany Dorsey OT Service: (none) Author Type: OCCUPATIONAL THERAPY REGISTERED/LICENSED Filed: 06/26/10 1713 Note Time: 12/18/08 0001 Status: Signed Internet Marketing Manager: Yosvany Dorsey OT (Resource) [facility] Occupational Therapy - Parkinson's Disease Evaluation Referring Physician: Dr. Parris Lucas. Primary Diagnosis: Parkinson's Disease (332.0). Reason for Referral: Assessment Clinic (Physical Therapist, Occupational Therapist, Speech and Language Pathologist, Commercial Airline Pilot, Registered Nurse, MD). Orders: Evaluate and treat. Time of Evaluation: 2:30 [facility] Services: Physical therapy. Speech therapy. RN. Family Services. Exacerbation Date: 12/04/2008 Onset History: Parkinson's disease SUBJECTIVE: Current Patient/Family Concerns: Turning in bed. Handwriting. Medication management. Balance/Falls in past 6 months: None reported. Motor Fluctuations: Yes. Past Medical History: Refer to Electronic Medical Records for past medical history, medications, and adverse drug reactions. Past Medical History Pertinent to Therapy include: Cancer. Cervical CA '82; back surgery '. Living Situation: Private home, all on 1 level. Living location: [facility]. Community Mobilities: Driving-unrestricted. Frequency of Outings: Leaves home on a daily basis. Leisure Activities: Yardwork. 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 OBJECTIVE: Hand Dominance: Right. Range of Motion: Grossly within normal limits bilaterally. Body Bradykinesia and Hypokinesia: United Parkinson's Disease Rating Scale (UPDRS) (Combining slowness, hesitancy, decreased armswing, small amplitude, and poverty of movement in general). -Left Upper Extremity: 3=Moderate slowness, poverty or small amplitude of movement. -Right Upper Extremity: 3=Moderate slowness, poverty or small amplitude of movement. Strength: Left upper extremity minimal impaired (4/5 grossly). Right upper extremity minimal impaired (4/5 grossly). -Job Service Consultant: Left - 63#=99% lbs; Right - 70#=99% lbs. Visual Perception (Draw a clock/cube-see scanDoc for drawing): -Cube replication & house: intact. -Clock: 2=normal. Cognitive Status: -Cognitive status per report: MMSE = 29/30 per RN report -Cognitive status per observation appears within functional limits. Activities of Daily Living: (UPDRS) -Handwriting: Moderately slow or small; all words are legible (2). -Cutting Food: Somewhat slow and clumsy, but no help needed (1). -Dressing: Somewhat slow, but no help needed (1). -Hygiene: Somewhat slow, but no help needed (1). -Turning in bed: Somewhat slow and clumsy, but no help needed (1). -Falling:None (0). -Freezing when walking: None (0). -Medication management: Forgets to follow prescribed schedule. PDQ-39 (Parkinson's Disease Quality of Life Questionnaire) Score: self report -Had difficulty showering/bathin-Rarely (1). -Had difficulty dressing: Sometimes (2). -Had difficulty with buttons or shoelaces: Sometimes (2). -Had problems writing clearly: Sometimes (2). -Had difficulty cutting up your food: Sometimes (2). -Had difficulty holding a drink without spillin-Never (0). Physical Performance Test (PPT): (Comparison with independent living seniors, average age 79) 21=70% Parkinson's Activity Scale (PAS): -Lying down in bed: Normal, without apparent difficulties. -Rolling onto side: 2 difficulties, with turning or shifting trunk or reaching adequate end position. -Rising from bed: 1 difficulty, with moving legs or trunk or reaching adequate end position. After instruction in optimal body mechanics and use of satin draw sheet client demonstrated performance on PAS as: lying down-0; rolling onto side-1; rising-0 Observations During Testing: Safety awareness: No problems observed. Behavioral Characteristics: Alert. Cooperative. Pleasant. Communication: Clear. Tremor (UPDRS): Absent(0). -Area(s) Affected: Tremor not observed but reported by client to occur in both upper extremities. Clinical Global Impression: Overall, how would you rate your ability to perform self-cares (e.g. dressing, eating, getting in and out of bed) BEFORE your appointment today? (0=excellent-10=poor): writing-6 Overall, how would you rate your ability to perform self-cares (e.g. dressing, eating, getting in and out of bed) AFTER your appointment today? (0=excellent-10=poor): ASSESSMENT: Therapist Impression: Receptive to instruction and recommendations. Motivated to preserve/enhance function wellness. 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 She is active and walks for exercise. She reports forgetting at times to take Parkinson's medications. Education provided on methods and adaptive equipment to facilitate compliance with medication schedule, upper body stretching exercises, bed mobility and methods to increase legibility of handwriting. Impairments: Decreased ADL performance. Bradykinesia. Motor fluctuations. Tremor. Functional Limitations: Bed mobility. Bed transfers. Handwriting. Medication management. Possible Barriers to Goal Achievement: Distance from clinic. Rehab Prognosis: Excellent for established goals. PLAN Planned Treatment: ADL/home program training. Adaptive equipment recommendations. Compensatory ADLs. Cuing strategies. Education. Therapeutic exercise - range of motion. Education: Wellness program. Interdisciplinary Referrals: Consult with social studies department chair. Frequency/Duration: 1X visit. Estimated Discharge: 1 session. Consent: Results of evaluation were reviewed with patient. Patient was receptive to treatment plan and participated in setting goals. Risks, benefits and alternatives to treatment were reviewed. Expected Functional Outcomes: -Patient/Care-partner to verbalize/demonstrate understanding to facilitate independence and safety in turning in bed and adjusting bedclothes in 1 session. -Patient/Care-partner to verbalize/demonstrate safety and maximum independence for bed transfers in 1 session. -Patient/Care-partner to demonstrate increase in functional legibility of handwriting in 1 session. -Patient/Care-partner verbalize/demonstrate a system for medication self management in 1 session. -Patient/Care-partner to verbalize/demonstrate understanding of exercise program for improved independence in ADL's: Range of motion, in 1 session. TREATMENT TODAY Patient/geothermal installer instructed in: Upper extremity strengthening/ROM exercise program trunk/neck stretches -Fine motor exercise program - home program for fine motor skills -Compensatory strategies/adaptive equipment for safely turning in bed and adjusting bedclothes using: Satin draw sheet. Verbal cuing. Optimal body mechanics. -Compensatory strategies/adaptive equipment for safe bed transfers using: Satin draw sheet. Optimal body mechanics. -Compensatory strategies/adaptive equipment for increased handwriting legibility using: Wide head miller pen. Lined paper. Aim big; write slowly. -Compensatory strategies/adaptive equipment for safe medication self management system using: Pill boxes. Medication timers. Resources Issued: -Exercise handouts. Source material for adaptive equipment. -Evaluation. -ADL/Self management. Response to treatment: Demonstrated comprehension of strategies and equipment use. Verbalized receptivity to recommendations. Procedures: Occupational Therapy Evaluation (CPT 18780) ADL/Self management (CPT 44662) 30 minutes TOTAL TREATMENT TIME: 60 minutes: 2 units eval = 30 min; 2 ADL = 30 min. minutes. Electronically signed by: SUDHA Arzola, [id number], 12/18/2008 *SH~REHAB~OTPARKIN ~ Shorthand Note completed on: 12/18/2008 1:31 PM Diann Gagnon PT - 12/18/2008 12:01 AM CDT Progress Notes signed by Diann Harden PT at 12/22/08 1410 Author: Diann Cunningham PT Service: (none) Author Type: Physical Therapist Filed: 06/26/10 1713 Note Time: 12/18/08 0001 Status: Signed Internet Marketing Manager: Diann Cunningham PT (Physical Therapist) Physical Therapy Parkinson Evaluation Referring Physician: Dr. Parris Lucas. Primary Diagnosis: Parkinson's Disease (332.0). Reason for Referral: Assessment Clinic (Physical Therapist, Occupational Therapist, Speech and Language Pathologist, Commercial Airline Pilot, Registered Nurse, MD). Orders: Evaluate and treat. Exacerbation Date: 12/04/2008 Last Referring MD Visit: 12/18/2008 SUBJECTIVE: Mobility Limitations Reported: Gait deficits. Balance/Falls in past 6 months (Average): None reported. Motor Fluctuations Reported: Yes. Pain Screen: No pain. Past Medical History: Refer to Electronic Medical Records for past medical history, medications, and adverse drug reactions. Support System: Lives with primary critical care educator. Family members in area check in frequently. Living Situation: Private home, more than 1 level. [facility] -Living Environment[place]uneven terrain, some surfaces not paved. Urban-mostly paved areas to ambulate. Driving: Yes. Community Mobility: Independent community ambulation - unrestricted. Frequency of Outings: Leaves home on a daily basis. Leisure Activities: Bowling. Yardwork. Exercise Frequency: Occasional/Sporadic. Communication: Clear. 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 Cooperative. Pleasant. Motor Function at Time of Eval: On - best level of functioning on medication. Tremor Observed: Mild. -Timing: Persistent. -Position: Resting. -Area(s) Affected: Left upper extremity. Right upper extremity. Rigidity: (UPDRS) (Judged on passive movement of major joints with pt relaxed in sitting positions. Cogwheeling to be ignored). 1-Slight or detectable only when activated by mirror or other movements. -Area(s) Affected: Axial. Body Bradykinesia and Hypokinesia: (UPDRS) (Combining slowness, hesitancy, decreased armswing, small amplitude, and poverty of movement in general) 2=Mild degree of slowness and poverty of movement which is definitely abnormal. Alternatively, some reduced amplitude. Dyskinesia (at time of evaluation): Absent. Range of Motion: Grossly within normal limits. Muscle Strength Deficits: Grossly within normal limits. Transfers: -Sit to stand: Safe and independent. -Stand to sit: Safe and independent. Functional Testing: -30 Sec Sit Stands: 13+ - low fall risk. -Five Times Sit to Stand Test (FTSST): (above 15 seconds considered abnormal for older adults). No arms - 14 seconds. Gait: No assistive device. -Assistance required: Independent. -General Gait Description: Reduced arm swing, bilateral. Limited trunk and pelvic rotation. Shortened step length with adequate foot clearance when assessed in ON state. However she reports when she is OFF she drags the right leg with shuffling and slowness. Able to perform quick stop/start manuvers, walk backward and tandem without difficulty. -Gait Velocity (Distance/Time; <=2.5 ft/sec considered high fall risk): 3.3 ft/second. Balance: Reactive Postural Response - In Place: -Forward: (Isometric push back from shoulders with quick release): Recovers stability with ankles, no added arm or hip motion. -Backward (Isometric push forward then scapulae with quick release): Recovers stability with ankles, no added arm or hip motion. Barrow Balance Scale: 56. (56= Good balance.<=45 mild risk of falls. <36=high risk for falls). Percent Probability of falling based on Barrow Score and fall history - 3%. ASSESSMENT: Therapist Impression: Patient notes some changes with her walking, which are more pronounced when she is OFF. She does not regularly follow an exercise routine but her familiy is strongly encouraging her to do so. She has a membership at the [facility] where there is also PT available so has many exercise options. She is in need of instruction on the equipment there and cuing strategies for gait pattern.. - Physical Therapy Practice Pattern: Impaired motor function, sensory integration associated with disorder central nervous system (5E). Impairments: Gait pattern changes. Hypokinesia. Motor fluctuations. Functional Limitations: -Gait instability. Mobility Restrictions: Limited leisure activities. Possible Barriers to Goal Achievement: None apparent. Rehab Prognosis: Good. PLAN Planned Treatment: ADL/Home program. Cuing strategies. Gait training. Therapeutic exercise. Frequency/Duration: 1X visit. Discharge Plan: Evaluation with recommendations. Consent: Results of evaluation were reviewed with patient. Patient was receptive to treatment plan and participated in setting goals. Risks, benefits and alternatives to treatment were reivewed. Expected Functional Outcomes: -Patient/Carepartner to verbalize understanding of physical therapy recommendations in 1 session. -Patient to demonstrate independence of home exercise program with updates/progression as indicated in 1 session. -Patient/Carepartner to verbalize understanding of appropriate cuing strategies to facilitate safe mobility in 1 session. TREATMENT TODAY -Evaluation. -Gait training - Instructed in BIG training strategies to increase the size of the steps and become more mindful of longer strides with definite heel strike. Carried out gait training on a treadmill at 2 mph for 5 minutes, followed by gait training in the hallways. -Therapeutic exercise: Gave exercise recommendations based on her impairments and outlined in Delay the Disease book for persons with PD. Advised to try Fish Chi or other mind/body discipline to increase conscious awareness of her movements. Core strengthening would also be beneficial; discussed Pilates. Patient/Carepartner instructed in: -Home program. -Cuing strategies to facilitate safe mobility. -Recommended she get a referral to see the local PT at the [facility] to set her up on the equipment and establish a program based on her needs. Recommended the treadmill be incorporated to increase awareness of gait pattern and stride length. Response to treatment: Able to demo improvement in gait pattern after walking on the treadmill with improved stride length. Procedures: Physical Therapy Evaluation (CPT 20872) Gait Training (CPT 39615) 20 minutes Therapeutic Exercise (CPT 33378) 10 minutes TOTAL TREATMENT TIME: 60 minutes. Electronically signed by: Diann Cunningham PT, [id number], 12/18/2008 *SH~REHAB~PTPARKEVA~ Shorthand Note completed on: 12/18/2008 2:09 PM Parris Lucas MD - 12/18/2008 12:01 AM CDT Progress Notes signed by Parris Lucas MD at 12/22/08 1436 Author: Parris Lucas MD Service: (none) Author Type: Physician Filed: 06/26/10 1963 Note Time: 12/18/08 0001 Status: Signed Internet Marketing Manager: Parris Lucas MD (Physician) Physical Therapy Plan of Care: Certification/FA 700. Initial Certification Period: , 12/18/2008 to 01/15/09 Initial Status: Physical Therapy Parkinson Evaluation Referring Physician: Dr. Parris Lucas. Primary Diagnosis: Parkinson's Disease (332.0). Reason for Referral: Assessment Clinic (Physical Therapist, Occupational Therapist, Speech and Language Pathologist, Commercial Airline Pilot, Registered Nurse, MD). Orders: Evaluate and treat. Exacerbation Date: 12/04/2008 Last Referring MD Visit: 12/18/2008 -Five Times Sit to Stand Test (FTSST): (above 15 seconds considered abnormal for older adults). No arms - 14 seconds. Gait: No assistive device. -Assistance required: Independent. -General Gait Description: Reduced arm swing, bilateral. Limited trunk and pelvic rotation. Shortened step length with adequate foot clearance when assessed in ON state. However she reports when she is OFF she drags the right leg with shuffling and slowness. Able to perform quick stop/start manuvers, walk backward and tandem without difficulty. -Gait Velocity (Distance/Time; <=2.5 ft/sec considered high fall risk): 3.3 ft/second. ASSESSMENT: Therapist Impression: Patient notes some changes with her walking, which are more pronounced when she is OFF. She does not regularly follow an exercise routine but her familiy is strongly encouraging her to do so. She has a membership at the [facility] where there is also PT available so has many exercise options. She is in need of instruction on the equipment there and cuing strategies for gait pattern.. - Physical Therapy Practice Pattern: Impaired motor function, sensory integration associated with disorder central nervous system (5E). Impairments: Gait pattern changes. Hypokinesia. Motor fluctuations. Functional Limitations: -Gait instability. Mobility Restrictions: Limited leisure activities. Possible Barriers to Goal Achievement: None apparent. Rehab Prognosis: Good. PLAN Planned Treatment: ADL/Home program. Cuing strategies. Gait training. Therapeutic exercise. Frequency/Duration: 1X visit. Discharge Plan: Evaluation with recommendations. Consent: Results of evaluation were reviewed with patient. Patient was receptive to treatment plan and participated in setting goals. Risks, benefits and alternatives to treatment were reivewed. Expected Functional Outcomes: -Patient/Carepartner to verbalize understanding of physical therapy recommendations in 1 session. -Patient to demonstrate independence of home exercise program with updates/progression as indicated in 1 session. -Patient/Carepartner to verbalize understanding of appropriate cuing strategies to facilitate safe mobility in 1 session. . The physician electronic signature certifies the medical necessity for this plan of care while under his/her care. Therapist Signature: Diann Cunningham, PT, [id number], 12/18/2008 *SH~REHAB~POC ~ Shorthand Note completed on: 12/18/2008 2:12 PM Kimberly Mcbride SLP - 12/18/2008 12:01 AM CDT Progress Notes signed by Kimberly Mcbride at 12/18/08 1148 Author: TOAN Gonzalez Service: (none) Author Type: Speech and Language Pathologist Filed: 06/26/10 5836 Note Time: 12/18/08 0001 Status: Signed Internet Marketing Manager: TOAN Gonzalez (Resource) [facility] [place] Speech Pathology - Parkinson's Disease Evaluation Primary Diagnosis: Parkinson's disease (332.0). This is patient's initial outpatient evaluation. Referring Physician: Parris Lucas MD. Onset/Exacerbation Date: 12/04/2008 Date of Evaluation: 12/18/2008 time: 10:45 SUBJECTIVE History of Current problem/Concerns: Communication - I get quiet. She is occasionally asked to repeat by her . Her daughters state that she is less animated and outgoing with her communication. None of them identify this as a real problem at this time. Voice Related Quality of Life: 10 = Excellent. Swallowing dry solids. Saliva control. Pain: None reported. Past Medical History: Reviewed in Electronic Medical Records. Past Medical History: Cancer. Medications: Reviewed in Electronic Medical Records. Drug Allergies: Reviewed in Electronic Medical Records. Texture diet at time of this evaluation: Regular texture. Liquid diet at time of this evaluation: Any liquids. Previous Speech Therapy: None. Hand Dominance: Right. Hearing Acuity: WFL. Communication Status: Minimal impairment. Glasses: Bifocals. Smoking: No. Education: High school. 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 Marital Status: . Living Arrangement: Lives with spouse. Safety in living environment: Patient feels safe in current living environment. Vulnerable adult assessment = low risk OBJECTIVE Behavioral Characteristics: Alert. Motivated. Cooperative. Anxious. Tests Administered: [facility] Assessment of Communication in Parkinson's Disease - using Computerized Speech Lab: , Oral Speech Mechanism -At rest: Within normal limits. -Lingual ROM: Within normal limits. -Labial ROM: Within normal limits. -Diadochokinesis: Within normal limits. -Facial Expression: Within normal limits. -Drooling: Absent. -Swallow of water: Cup. Within normal limits. 4 Speech and Voice: -Sustained Phonation /a/ (31 seconds): Within normal limits. -Breath Support and Control: Within normal limits. -Conversational voice loudness 61-62 dB: Mild impairment. Monoloudness. -Reading voice loudness 63 dB: Within normal limits. -Conversational pitch range 194 Hz: Within normal limits. -Reading pitch range 234 Hz: Within normal limits. -Articulation: Within normal limits. -Voice quality: Within normal limits. RAP - within normal limits - 0.18%. -Resonance: Within normal limits. -Speech Rate: Within normal limits. -Overall Speech Intelligibility: Minimal impairment. Client is able to improve speech/voice parameters with cues. Cognitive/Linguistic Screening: -Expressive Language: Within normal limits. -Orientation to time/place/situation: 6/6. Within normal limits. -Immediate Verbal Memory: 5/5. Within normal limits. -Recent Verbal Memory: 1415. Within normal limits. -Remote Verbal Memory: 5/5. Within normal limits. Voice Related Quality of Life: -Score: 10 -Severity level: Excellent. ASSESSMENT Therapist Impression: Dysarthria 784.51. Barriers to Learning: None apparent. Prognosis: Good. PLAN Plan of care sent to MD for signature. At discharge, viewable on ScanDoc. Recommend 1:1 Speech Therapy: No ongoing speech therapy recommended at this time. Frequency/Duration: One time evaluation and treatment only at [facility] [place]. Care Home goals: -Maximize speech and voice for functional communication. -Maximize swallow function for safe PO nutrition and hydration. Short Term goals: -Goals today: Learn strategies to improve communication with Parkinson's Disease/dysarthria. Learn saliva control and voice hygiene measures. Learn appropriate texture diet for Parkinson's Disease. Patient Education: Results of the evaluation were reviewed with the patient/family. Risks, benefits and alternatives to treatment have been explained. Educational Handouts provided in the following areas: -Strategies to improve communication with Parkinson's disease/Dysarthria. -Strategies to improve voice hygiene. -Strategies to improve saliva control. -Appropriate diet for dysphagia in Parkinson's Disease. Recommend Referral to/for: Physical therapy. Occupational therapy. Discharge Plan: Patient will be discharged from speech therapy when goals are met. Goals met today. Consent: Plan of care generated with patient/family and they consent to treatment. CC: message sent to: Parris Lucas MD TOTAL VISIT TIME: 60 minutes. Electronically signed by: Kimberly Mcbride MA/[facility]BAR WAITER/WAITRESS, 5063, 12/18/2008 *SH~REHAB~[place]~ Shorthand Note Completed on: 12/18/2008 11:46 AM Parris Lucas MD - 12/18/2008 12:01 AM CDT Progress Notes signed by Parris Lucas MD at 12/18/08 4569 Author: Parris Lucas MD Service: (none) Author Type: Physician Filed: 04/23/11 1711 Note Time: 12/18/08 0001 Status: Signed Internet Marketing Manager: Parris Lucas MD (Physician) Speech Therapy Plan of Care: Certification/FA 700. Initial Certification Period: , 12/18/2008 to 01/15/09 Initial Status: Primary Diagnosis: Parkinson's disease (332.0). This is patient's initial outpatient evaluation. Referring Physician: Parris Lucas MD. Onset/Exacerbation Date: 12/04/2008 Date of Evaluation: 12/18/2008 time: 10:45 ASSESSMENT Therapist Impression: Dysarthria 784.51. Barriers to Learning: None apparent. Prognosis: Good. PLAN Plan of care sent to MD for signature. At discharge, viewable on ScanDoc. Recommend 1:1 Speech Therapy: No ongoing speech therapy recommended at this time. Frequency/Duration: One time evaluation and treatment only at [facility] [place]. Care Home goals: -Maximize speech and voice for functional communication. -Maximize swallow function for safe PO nutrition and hydration. Short Term goals: -Goals today: Learn strategies to improve communication with Parkinson's Disease/dysarthria. Learn saliva control and voice hygiene measures. Learn appropriate texture diet for Parkinson's Disease. Patient Education: Results of the evaluation were reviewed with the patient/family. Risks, bens the medical necessity for this plan of care while under his/her care. Therapist Signature: Kimberly Mcbride MA/[facility]BAR WAITER/WAITRESS, 5063, 12/18/2008 *SH~REHAB~POC ~ Shorthand Note completed on: 12/18/2008 11:49 AM certifie today. Consent: Plan of care generated with patient/family and they consent to treatment. . The physician electronic signature efits and alternatives to treatment have been explained. Educational Handouts provided in the following areas: -Strategies to improve communication with Parkinson's disease/Dysarthria. -Strategies to improve voice hygiene. -Strategies to improve saliva control. -Appropriate diet for dysphagia in Parkinson's Disease. Recommend Referral to/for: Physical therapy. Occupational therapy. Discharge Plan: Patient will be discharged from speech therapy when goals are met. Goals met Parris Lucas MD - 12/17/2008 12:01 AM CDT Progress Notes signed by Parris Lucas MD at 12/19/08 1700 Author: Parris Lucas MD Service: (none) Author Type: Physician Filed: 06/26/10 1711 Note Time: 12/17/08 0001 Status: Signed Internet Marketing Manager: Parris Lucas MD (Physician) NAME: DARLENE DREW MR#: [id number] ACCT: VISIT: [id number] DICTATING CLINICIAN: Parris Lucas MD CONFIRM #: [id number] LOC: 223 CLINIC PROGRESS NOTE DATE OF VISIT: 12/17/2008 SUBJECTIVE: : 1955. This is a pleasant, 53-year-old patient who is essentially self-referred for a second opinion about Parkinson's disease. She is accompanied by her and daughter, and is being seen today in the assessment clinic at the center. Her symptoms began about 3 years ago with changes in balance, shuffling of gait, dragging of the right leg, difficulty getting out of the chair. She has not had tremor as a symptom. It took some time for a diagnosis to be made, but she ultimately went to a neurologist and was felt to have Parkinson's disease. She was started on Sinemet 25/100 1 tablet 3 times a day and had an immediate and dramatic benefit in her motor function. She has been seen, and I think followed through the [facility] group and has seen Dr. Graham. Once she got on Sinemet, her dose was ultimately titrated to 2-1/2 tablets 3 times a day. She is very rigid about her how she takes it relative to meals. She will occasionally take an additional Sinemet dose either at bedtime or during the night. 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 Her works for the [employer]. She has a daughter who also lives nearby. The patient feels as though she is able to do all the activities that she used to do. She had quit bowling during the year that she was getting diagnosed, but has been able to return to it and does fine at it. She will occasionally need an extra dose of medicine when she goes bowling. She does all the usual household activities. FAMILY HISTORY: Parkinson's in her uncle. Family history also of stroke and heart attack and cancer in various relatives. SOCIAL HISTORY: She is a nonalcohol user, nonsmoker. She has been exposed to well water, but not welding. PAST MEDICAL HISTORY: Includes cervical cancer in 1981, treated surgically. She had back surgery in 1991, arthroscopic knee surgery in 2004. She has gallbladder issues dating back to 2005. She does not exercise regularly. MEDICATIONS: The Sinemet 25/100 2-1/2 tablets 3 or 4 times a day. She takes Foltx, MiraLAX, omeprazole, and Colace. I think she is also taking a vitamin D supplement. OBJECTIVE: VS: BP1: 120/64 sitting. BP2: 118/64 standing. P: 64. WT: 165. UPDRS Functional score: 11. Mini-Mental Status score: 29/30. Mcdermott depression score: 6. This was a pleasant, cooperative, thin, middle-aged woman. The heart showed a regular rhythm without murmurs, rubs, or gallops. There are no carotid bruits. There is no peripheral edema. The mental status seemed grossly normal in terms of attention, concentration, memory, fund of knowledge, and language. I have a sense of some underlying compulsive tendencies, which only came out later in the interview. For instance, regarding eating and taking her pills. I also sensed some resistance to change in her medications, but basically, her mental status was normal. Cranial nerve exam showed a full range of eye movements horizontally and vertically. The face, tongue, sternocleidomastoid, and trapezius were symmetric and normal. She might have had just a little bit of an impassive facial appearance, but basically her voice was normal, and she was fairly expressive. Motor exam showed normal strength proximally and distally in all 4 extremities. I could not really get a sense of an asymmetry in her gestures. She had just a little bit of reduction of the amplitude of finger taps on the right side compared to the left, but it was pretty minimal. I did not see any tremor. There was just a touch of cogwheeling in the legs without rigidity. Heel taps were done well. The sensation was intact to vibration in the ankles. The reflexes were present, perhaps a little diminished at the biceps. The left knee jerk was brisker than the right. Ankle jerks were present, but slightly diminished. She was able to rise from a chair without using her hands. Her gait was brisk. Her arm swing was pretty normal. She had just a little bit of difficulty with tandem gait, but was able to walk on her toes and heels, and had normal postural stability. ASSESSMENT: Stage I Parkinson's disease. By history, I actually would be hard pressed to make a diagnosis of Parkinson's disease based on her exam today, because her medication seemed to work quite well. I had just a little bit of a sense of a head wiggling dyskinesia on a couple of occasions, and towards the end of the exam, she was jiggling her foot in an either nervous or slightly dyskinetic fashion. So I was a little concerned that she may be taking more medication than she needs. I was also able to elicit towards the end of the exam, a sense on occasion of medication wearing off, so I spent a good deal of time with the patient and family reviewing the potential for Sinemet to lead to peak and wearing off effects, including dyskinesias and uncomfortable down times. PLAN: I recommended that she try some experiments to help herself understand how the Sinemet is working for her. For instance, I recommended that she try taking her Sinemet with food so that she could determine whether the protein is interfering with Sinemet absorption in her case. If there is no difference when she takes the medication with food, then she can be much less rigid about the intake of food relative to the timing of her medication. I also recommended that she try taking just 1 Sinemet tablet rather than 2-1/2 at times when she feels that she needs a booster dose, either during the night or during her bowling games. I also recommended that she try decreasing to 2 Sinemet tablets for some or all of her daily doses, just so she gets a sense of whether she really needs 2-1/2 pills each time, or whether a smaller dose would be helpful. We discussed the possibility of adding a scheduled Sinemet CR dose at bedtime to help her get through the night better and also help her get started in the mornings more easily. She did not want to do that yet. I will see her back in 2 months to look at the results of these experiment that she will do. We did also discuss the potential down the road of adding a second Parkinson drug if she reaches a point where she needs more medication rather than increasing the Sinemet further, as Sinemet tends to drive dyskinesias. She was also seen today by physical, occupational, and speech therapy, as well as nursing and family services. Their recommendations were given to her separately. I did write her a prescription to have some ongoing physical therapy in her home town, as this was felt to be potentially helpful when she saw our physical therapist. This was an hour long appointment with 45 minutes of discussion. I will plan to see her back in 2 months. CC: Dr. Prakash Pérez [facility] [address] [place] [id number] MAN:[id number] C: 12/19/08 11:18 CONFIRM #: [id number] documented in this encounter Plan of Treatment Upcoming Encounters Date Type Specialty Care Team Description 06/08/2022 Appointment Neurology Parris Lucas MD [address] [facility] [address] [facility] [place] N [id number] (Wo rk) documented as of this encounter Visit Diagnoses Not on filedocumented in this encounter Care Teams Shopper Insights Manager Relationship Specialty Start Date End Date Unassigned, Provider PCP - General 03/13/00 03/16/[address] [place] [id number] documented as of this encounter
--- OUTSIDE RECORDS SUMMARY | 2021-12-14 22:56 | XMS_ITS | Encounter Summary ---
:1955 Author Organization [facility] Address [address] [place] [address] Care Team Providers Name Role Phone Elsewhere, Pcp Primary Care Provider Unavailable Reason for Referral Outpatient (Routine) - Closed Specialty Diagnoses / Procedures Referred By Contact Refer red To Contact Diagnoses Pain Shoulder Right Sharad Velazquez M.D. [facility] Region Procedures DX Shoulder Right 2+ Views [address] [place] [address] Referral ID Status Reason Start Date Expiration Date Visits Requ ested Visits Authorized [id number] Closed 11/26/2021 11/26/2022 1 1 Reason for Visit Outpatient (Routine) - Closed Specialty Diagnoses / Procedures Referred By Contact Refer red To Contact Diagnoses Pain Shoulder Right Sharad Velazquez M.D. [facility] Region Procedures DX Shoulder Right 2+ Views [address] [place] [address] Referral ID Status Reason Start Date Expiration Date Visits Requ ested Visits Authorized [id number] Closed 11/26/2021 11/26/2022 1 1 Encounter Details Date Type Department Care Team Description 11/26/2021 Hospital Encounter Department of Steven Velazquez ulangelo Right [facility], in [address] [place] [id number] [place], [place] [phone] (Work) [phone] Social History Tobacco Use Types Packs/Day Years [...] mouth daily. Take at tablet 5 PM [id number]-[id number] Take 1 tablet by 0 one (STALEVO) [...] Name Priority Date/Time Associated Comments Diagnosis DX SHOULDER RIGHT RAD - Routine 11/26/2021 2:23 Pain Shoulder Resul ts for this 2+ VIEWS (most inpatients PM CDT Right procedure a re in and all the results outpatients) section. documented in this encounter Results DX Shoulder Right 2+ [...] encounter Visit Diagnoses Diagnosis Pain Shoulder Right documented in this encounter Care Teams Gullet Slitter Relationship Specialty Start Date End Date Elsewhere, Pcp PCP - General Netsuite Consultant 03/20/19 documented as of this encounter
--- OUTSIDE RECORDS SUMMARY | 2021-12-14 22:56 | XMS_ITS | Encounter Summary ---
:1955 Author Organization [facility] Address [address] [place] [address] Care Team Providers Name Role Phone Unassigned, Provider Primary Care Provider Unavailable Reason for Visit Reason Comments Other Encounter Details Date Type Department Care Team Description 12/26/2008 Telephone Specialty [facility] [address] K[address] De Other Neurology E, RN [address] [place] [address] Social History Tobacco Use Types Packs/Day Years Used Date Smoking Tobacco: Never Assessed Sex Assigned at Date Recorded Not on file documented as of this encounter Progress Notes Laura De RN - 12/26/2008 4:06 PM CDT Phone Note filed by Laura De RN at 06/25/10 1520 Author: Laura De RN Service: (none) Author Type: Registered Nurse Filed: 06/25/10 1520 Note Time: 12/26/08 1606 Status: Signed Night Shift Supervisor: Laura De RN (Registered Nurse) OT/PT order mailed to [facility], [address] [place], [place] [id number] Created on 26Dec2008 4:06pm by LAURA DE NICAL STAFF ASSISTANT documented in this encounter Plan of Treatment Upcoming Encounters Date Type Specialty Care Team Description 06/08/2022 Appointment Neurology Parris Lucas MD [address] [place] N [address] (Wo rk) documented as of this encounter Visit Diagnoses Not on filedocumented in this encounter Care Teams Wagon Driver Salesperson Relationship Specialty Start Date End Date Unassigned, Provider PCP - General 03/13/00 03/16/[address] [place] [id number] documented as of this encounter
--- OUTSIDE RECORDS SUMMARY | 2021-12-14 22:56 | XMS_ITS | Clinical Summary ---
:1955 Author Organization [facility] Address [address] [place] [address] Care Team Providers Name Role Phone Elsewhere, Pcp Primary Care Provider Unavailable Source Comments Patient records contain information from all sites at [facility]. For routine questions regarding patient records, call [phone] during business hours, M-F 8:00 AM - 5:00 PM Central Time. Record requests for emergency care only can be directed to [phone] at any time.[facility] Allergies Active Allergy Reactions Severity Noted Date Comments Penicillins Other (see comments) 06/04/2021 Sulfa (Sulfonamide Antibiotics) Other (see comments) 0 06/04/2021 Medications Medication Sig Dispensed Refills Start Date End Date Status escitalopram (LEXAPRO) Take 20 mg by 0 Active 20 mg tablet mouth daily. fludrocortisone Take 0.1 mg by 0 Active (FLORINEF) 0.1 mg mouth daily. 2 tablet tablets QD acetaminophen Take by mouth 0 Ac tive (TYLENOL) 500 mg every 6 (six) capsule hours as needed for pain. midodrine (PROAMATINE) Take 5 mg by mouth 0 Active 5 mg tablet 2 (two) times a day. omeprazole (PriLOSEC) Take 20 mg by [address] capsule mouth every morning before breakfast. denosumab (PROLIA) 60 Inject 60 mg under 0 Active mg/mL syringe the skin once. calcium carbonate Chew 1 tablet 0 Active (TUMS E-X) 750 mg (300 daily. mg calcium) chewable tablet lidocaine HCL Apply 1 0 Active (ASPERCREME) 4 % cream application cream topically. Apply to topically. cholecalciferol Take 50 mcg by 0 Active (VITAMIN D3) 50 mcg mouth daily. (2,000 Unit) tablet magnesium 200 mg Take 400 mg by 0 Active tablet mouth every morning before breakfast. multivit with Take by mouth. 0 A ctive calcium,iron,min (TAB A LUCIANO ORAL) mirtazapine (REMERON) Take 15 mg by 0 Active 15 mg tablet mouth at bedtime. pimavanserin Take 34 mg by 0 Act tung (NUPLAZID) 34 mg mouth daily. capsule tablet sennosides (SENOKOT) Take 8.6 mg by 0 Active 8.6 mg tablet mouth daily. carbidopa-levodopa Take 1 tab po at 0 06/21/2021 Active (SINEMET) 25-250 mg 7:05am, 9am, 11am, per tablet 1pm, 3:05pm and 7pm and 1/2 pill at 5pm lidocaine (SALONPAS) 4 Place 1 patch on 0 Active % adhesive the skin. patch,medicated carbidopa-levodopa Take 0.5 tablets 0 Active (SINEMET) 25-250 mg by mouth daily. per tablet Take at 5 PM pvufzlbrg-pfoxrxnt-idb Take 1 tablet by 0 Active acapone (STALEVO) mouth at bedtime. 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 11/26/2021 Office Visit Orthopedic Surgery Steven Velazquez M.D. (Primary Dx) 11/04/2021 Clinical Communication Orthopedic Surgery Elsewhere, Pcp 10/21/2021 Hospital Encounter Radiology [place], Pain Hand Right Dominic D.OEddie 10/21/2021 Comprehensive Visit Orthopedic Surgery Thomas Samuel in Hand Right Dominic D.OEddie (Primary Dx) 10/21/2021 Hospital Encounter Radiology [place], Pain Hand Right Dominic D.O. from Last 3 Months Social History Tobacco Use Types Packs/Day Years Used Date Smoking Tobacco: Never Sex Assigned at Date Recorded Not on file Last Filed Vital Signs Vital Sign Reading Time Taken Comments Blood Pressure 107/60 08/13/2015 9:36 AM Vital sign result CDT from Clinical No jarek. Pulse 83 11/26/2021 1:30 PM CDT Temperature 36.9 ??C (98.4 ??F) 11/26/2021 1:30 PM CDT Respiratory Rate - - Oxygen Saturation 98% 11/26/2021 1:30 PM CDT Inhaled Oxygen - - Concentration Weight 73.8 kg (162 lb 11.2 08/13/2015 9:36 AM Vital sign result oz) CDT from Clinical No jarek. Height 174 cm (5' 8.5) 05/11/2015 10:07 Vital sign result AM CORPORATE LOGISTICS MANAGER from Clinical No jarek. Body Mass Index 24.38 05/11/2015 10:07 AM CORPORATE LOGISTICS MANAGER Plan of Treatment Health Maintenance Due Date Last Done Comments Bone Density Scan (Osteoporosis 1955 Screen) CT Colonography 1955 Cologuard 1955 Colonoscopy 1955 Colorectal Cancer Screening 1955 FIT 1955 Fasting Glucose for Diabetes 1955 Screening Hepatitis C Screening 1955 Zoster Vaccines (1 of 2) 06/21/2005 Mammogram 03/24/2016 03/24/2015, 03/05/2015, 02/23/2015 Pneumococcal vaccine (65+ years) 03/25/2017 03/25/2016 (2 - PCV) COVID-19 Vaccine (4 - Booster for 02/18/2021 12/24/2020, , Pfizer series) 03/23/2020 Depression Screening (Annual 03/06/2021 PHQ-2) Fall Risk Screen (Annual) 03/06/2021 Influenza Vaccine (#1) 2021 12/01/2020, 12/20/2018, 12/14/2017, Additional history exists DTaP,Tdap,and Td Vaccines (2 - Td 11/09/2022 11/09/2012 or Tdap) Procedures Procedure Name Priority Date/Time Associated Comments Diagnosis DX SHOULDER RIGHT RAD - Routine 11/26/2021 2:23 Pain Shoulder Resul ts for this 2+ VIEWS (most inpatients PM CDT Right procedure a re in and all the results outpatients) section. DX FINGERS RIGHT RAD - Routine 10/21/2021 2:19 Pain Hand Right Resu lts for this 2+ VIEWS (most inpatients PM CDT procedure a re in and all the results outpatients) section. DX HAND RIGHT 3+ RAD - Routine 10/21/2021 1:49 Pain Hand Right Resu lts for this VIEWS (most inpatients PM CDT procedure a re in and all the results outpatients) section. from Last 3 Months Results DX Shoulder Right 2+ Views (11/26/2021 [...] the glenohumeral joint suggesting joint effusion. Sharad Velazquez M.D. IM DIAGNOSTIC IMAGING PROCE GRANT DX Fingers Right 2+ Views (10/21/2021 2:19 PM CDT) Anatomical Region Laterality Modality Upper Extremity, Fingers, Musculoskeletal RST LOS, Right Digital Radiography Musculoskeletal ARZ LOS, Muskuloskeletal FLA [facility] Specimen (Source) Anatomical Collection Method Collection [...] phalanx. Dominic Samuel D.O. IMG DIAGNOSTIC IMAGING [facility] DX Hand Right 3+ Views (10/21/2021 1:49 PM CDT) Anatomical Region Laterality Modality Upper Extremity, Hand, Musculoskeletal RST LOS, Right Digital Radiography Musculoskeletal ARZ [facility], Muskuloskeletal FLA [facility] Specimen (Source) Anatomical Collection Method Collection [...] 3rd middle phalanx. Dominic BLACK DIAGNOSTIC IMAGING PROCE GRANT from Last 3 Months Insurance Payer Benefit Plan / Subscriber ID Effective Phone Address T ype Group Dates MEDICARE MEDICARE A AND [id number] 2013-Prese [address] [place] [address] RUST [id number] 2016-[place] [id number] Indemnity [place] [address] Care Teams Development Editor Relationship Specialty Start Date End Date Elsewhere, Pcp PCP - General Clay Press Operator 03/20/19
--- OUTSIDE RECORDS SUMMARY | 2021-12-14 22:56 | XMS_ITS | Encounter Summary ---
:1955 Author Organization [facility] Address [address] [place] [address] Care Team Providers Name Role Phone Elsewhere, Pcp Primary Care Provider Unavailable Encounter Details Date Type Department Care Team Description 12/01/2021 Clinical Communication Department of Orthopedic [facility] ere, Pcp Surgery in [place], [place] [address] [place] [address] Social History Tobacco Use Types Packs/Day Years Used Date Smoking Tobacco: Never Sex Assigned at Date Recorded Not on file documented as of this encounter Miscellaneous Notes Telephone Encounter - Ashley Fuentes R.N. - 12/13/2021 9:27 AM CDT Called and spoke to daughter Monisha and gave her the recommendations from Reny Zavala. Monisha states that a lot has happened with pt since that question regarding a shoulder injection. Monisha states that her brother brought pt in on 11/26/[address] Velazquez regarding pain right middle finger due to fall. It was noted on the visit note showed avulsion fracture of the dorsum of the base of middle phalanx and has right rotator cuff arthropathy. The humeral head is proximally migrated. The acromial humeral distance is decreased. She also appears to have increased distance between theglenoid and the humeral head, consistent with her large effusion. The assessment plan: The patient, her son, and I discussed [...] she is going to have to live with Daughter states as of 12/02/21, pt fell again and now injured right index finger in addition to the issues she was having with right middle finger and right shoulder. Daughter states that since she is at [facility], she did have an xray of right hand. Daughter states [facility] did send over the report available in document viewer and was wondering what Dr. Velazquez would recommend based on those results. Explained that an follow up appointment would be ideal but Dr. Velazquez does not have a clinic thisFriday 12/17/21 and is booked on 12/24/21. Pt has seen Dr. Samuel before but daughter states he does not specialize in hands. Daughter asking if Dr. Velazquez could look at the report and let them know his recommendations in the meantime. Called and spoke to Dr. Velazquez's nanny caregiver Ranjana at [facility] office. Ranjana states she will request the actual films for him to review and will show him the right hand xray report from 12/02/21 and will let us know next steps but might not be until . Telephone Encounter - Alyssia Franklin, C.M.A. - 12/07/2021 9:54 AM CDT Reny, are you able to address this? Telephone Encounter - Alyssia Franklin, C.M.A. - 12/01/2021 11:39 AM CDT LM to let Monisha know Dr. Velazquez is not in office until Monday. We will also need to get a signed release for Monisha. Dr. Velazquez, Is patient a candidate for shoulder injections? Telephone Encounter - Valerie Lugo - 12/01/2021 10:10 AM CDT Reason for Communication: The patient's daughter, Monisha, has a question for Dr. Velazquez. She says her brother brought the patient to see Dr. Velazquez last week, and he forgot to ask him about shoulder injections. She says she wants to know if the swelling in the patient's shoulder goes down, would she be a candidate for getting a cortisone injection? If she is, she wants to know how they would be able to tell when the swelling was down enough that they could bring her in for that. Action Needed: Call Monisha Special calling instructions: [phone] Ok to leave detailed message on voicemail? N/A Portal: No Note: There is not currently an authorization on file for Monisha. She says there is a POA in force. However, when I spoke with Alyssia in Records, she said that they do not have a copy of that, and confirmed there is no signed authorization either. Monisha was very upset, and said that she has been speaking with nurses regularly regarding the patient's care, as the patient is in a memory care unit, and that this has never been an issue before. She was advised that the POA should be sent to Records so we have it on file, and that nursing and Dr. Velazquez may not be able to speak with her about the patient's care without that. documented in this encounter Plan of Treatment Not on filedocumented as of this encounter Visit Diagnoses Not on filedocumented in this encounter Care Teams Manager Child Relationship Specialty Start Date End Date Elsewhere, Pcp PCP - General Game Farm Supervisor 03/20/19 documented as of this encounter
--- OUTSIDE RECORDS SUMMARY | 2021-12-14 22:56 | XMS_ITS | Encounter Summary ---
:1955 Author Organization [facility] Address [address] [place] [address] Care Team Providers Name Role Phone Unassigned, Provider Primary Care Provider Unavailable Encounter Details Date Type Department Care Team Description 04/26/2010 Hospital Encounter ORTHODOX CONVERSION Jeanmarie Lucas MD [address] [facility] [address] [place], [place] [address] (Wo rk) Social History Tobacco Use Types Packs/Day Years Used Date Smoking Tobacco: Never Assessed Sex Assigned at Date Recorded Not on file documented as of this encounter Medications at Time of Discharge Medication Sig Dispensed Refills Start Date End Date CARBIDOPA-LEVODOPA OR Take 1 tablet by 4 11/13/19 10 mouth nightly. LW Addl Instr:Indicated for: Parkinson Disease CARBIDOPA-LEVODOPA OR Take 1 tablet by 270 4 08/27/19 10 mouth 3 times daily. LW Comment:1 at [phone] LW Addl Instr:Indicated for: Parkinson Disease carbidopa-levodopa (AKA Take 2.5 tablets by 900 [...] treat for exercise program for Parkinson's disease ep-xjrydtgsev-ahefqtccuhe Take 1 tablet by 90 3 12/0408/13/2010 min (FOLTX) 2.5 mg-25 mouth daily (every mg-2 mg tablet 24 hours). unknown medication Indications: PN: 0 11/12/2009 04/28/2010 unknown medication Indications: PN: 0 11/12/2009 04/28/2010 unknown medication Indications: PN: 0 08/26/2009 04/28/2010 unknown medication Indications: PN: 0 03/03/2009 04/28/2010 [...] Description 06/08/2022 Appointment Neurology Parris Lucas MD [address] [facility] [address] [facility] [address] (Wo rk) documented as of this encounter Visit Diagnoses Not on filedocumented in this encounter Care Teams Anesthesiology Fellow Relationship Specialty Start Date End Date Unassigned, Provider PCP - General 03/13/00 03/16/[address] [place] [id number] documented as of this encounter
--- OUTSIDE RECORDS SUMMARY | 2021-12-14 22:56 | XMS_ITS | Clinical Summary ---
:1955 Author Organization [facility] [place] [address] Care Team Providers Name Role Phone Helen Araujo MD Unavailable Jesse Norton MD Primary Care Provider Allergies Active Allergy Reactions Severity Noted Date Comments Latex Rash 04/06/2015 Penicillins *Unknown 03/31/2015 Patient's amor barbosa had severe reaction and told patient to never take it. Sulfabenzamide *Unknown 04/08/2015 Medications Medication Sig Dispensed Refills Start Date End Date Status mirtazapine (REMERON) 15 Take 15 mg by 0 Active mg tablet mouth at bedtime. MULTIVITAMIN ORAL Take by mouth. 0 Active amantadine HCl Take 100 mg by 0 Active (SYMMETREL) 100 mg mouth 2 times tablet daily. DOCOSAHEXANOIC ACID/EPA Take 2,000 mg by 0 Active (FISH OIL ORAL) mouth once daily. Burp-Less DOCUSATE SODIUM (COLACE Take by mouth. 0 Active ORAL) Calcium Citrate-Vitamin Take by mouth. 0 Active D3 200-125 mg-unit tab GLUCOSAMINE SULFATE Take by mouth. 0 Active (GLUCOSAMINE ORAL) escitalopram oxalate Take 10 mg by 0 Active (LEXAPRO) 10 mg tablet mouth once daily. ALPRAZolam (XANAX) 0.25 Take 0.25 mg by 0 Active mg tablet mouth at bedtime if needed. bfrngulbj-cldzopfs-upavw Take 1 tablet by 0 Active apone, 12.5-50-200 mg, mouth 3 times (STALEVO 50) 12.5-50-200 daily. mg tab carbidopa-levodopa, Take 2 tablets 0 Active 25-100 mg, (SINEMET by mouth. 25-100) 25-100 mg tablet Patient takes 9 times/day for 18 tablets total carbidopa-levodopa Take 1 tablet by 0 Active controlled release, mouth 2 times 50-200 mg, (SINEMET CR daily. 1 at 50-200) 50-200 mg tablet bedtime. BID as needed medication order Take 1 tablet by 0 Active composer mouth once daily. Marvin Food One Daily Iron Free cholecalciferol (VITAMIN Take 2,000 Units 0 Active D3) 2,000 unit capsule by mouth once daily. letrozole (FEMARA) 2.5 Take 2.5 mg by 0 Active mg tablet mouth once daily. omega-3 fatty Take by mouth. 0 A ctive acids-vitamin E (FISH OIL) 1,000 mg cap Active Problems Not on file Family History Medical History Relation Name Comments Cancer-breast Sister dx age 56 Cancer No Family History Cancer-colon No Family History Cancer-ovarian No Family History Cancer-prostate No Family History Relation Name Status Comments Sister Social History Tobacco Use Types Packs/Day Years Used Date Never Smoker Alcohol Use Standard Drinks/Week Comments No 0 (1 standard drink = 0.6 oz pure alcoho l) Sex Assigned at Date Recorded Not on file Obstetrics History Last Filed Vital Signs Vital Sign Reading Time Taken Comments Blood Pressure 112/77 03/01/2016 11:14 AM SUPERVISOR MODEL MAKING Pulse 77 03/01/2016 11:14 AM SUPERVISOR MODEL MAKING Temperature 36.8 ??C (98.2 ??F) 03/01/2016 11:14 AM SUPERVISOR MODEL MAKING Respiratory Rate 18 03/01/2016 11:14 AM SUPERVISOR MODEL MAKING Oxygen Saturation 100% 10/21/2015 10:44 AM CDT Inhaled Oxygen Concentration - - Weight 68.4 kg (150 lb 14.4 oz) 03/01/2016 11:14 AM SUPERVISOR MODEL MAKING Height 172.7 cm (5' 8) 03/01/2016 11:14 AM SUPERVISOR MODEL MAKING Body Mass Index 22.94 03/01/2016 11:14 AM SUPERVISOR MODEL MAKING Plan of Treatment Health Maintenance Due Date Last Done Comments COVID-19 vaccine series (#1) 1955 Tdap 06/21/1966 Depression screening for age 12+ 1967 BMI (ht and wt on same day) for 06/21/1973 age 18+ Hepatitis C screening for age 0406/21/1973 18-79 Tetanus booster 1975 Colonoscopy through age 75 06/21/2000 Lipids for age 45-75 06/21/2000 Zoster (shingles) series for age 0406/21/2005 50+ (1 of 2) Mammogram for age 45-75 03/25/2020 03/25/2019, 03/16/2018, 03/02/2017, Additional history exists DEXA/DXA scan for age 65+ 06/21/2020 05/25/2017 Pneumococcal series for age 65+ (1 06/21/2020 - PCV) Influenza for age 65+ 11/04/2021 Results Not on filefrom Last 3 Months Insurance Payer Benefit Plan / Subscriber ID Effective Dates Phone Addre ss Type Group MEDICARE PART A MEDICARE PART A [id number] 2012-Presen ATTN: CLAIMS - HB USE ONLY HB ONLY t [address] [place] [address] MEDICARE PART B MEDICARE PART B [id number] 2015-Presen ATTN: CLAIMS - HB USE ONLY HB ONLY t [address] [place] [address] BLUE CROSS BLUE CROSS OF [id number] 2016-Presen [address] [place] [address] Advance Directives Latest Code Status on File Code Status Date Activated Date Inactivated Comments Full Code 04/09/2015 8:35 AM 04/09/2015 4:46 PM Care Teams Dairy Manufacturing Technologist Relationship Specialty Start Date End Date Jesse Norton MD PCP - General Family Practice 05/05/16 Helen Araujo MD Surgery - General 03/26/15
--- OUTSIDE RECORDS SUMMARY | 2021-12-14 22:56 | XMS_ITS | Encounter Summary ---
:1955 Author Organization [facility] Address [address] [place] [address] Care Team Providers Name Role Phone Elsewhere, Pcp Primary Care Provider Unavailable Encounter Details Date Type Department Care Team Description 11/04/2021 Clinical Communication Department of Orthopedic [facility] ere, Pcp Surgery in [place], [place] [address] [place] [address] Social History Tobacco Use Types Packs/Day Years Used Date Smoking Tobacco: Never Sex Assigned at Date Recorded Not on file documented as of this encounter Miscellaneous Notes Telephone Encounter - Jessika Queen R.N. - 11/05/2021 9:49 AM CDT Spoke with patient's daughter Monisha and gave her Dr. Samuel's recommendations about splinting listed below: Per Dr. Samuel's response: Unfortunately there are not a lot of great options for splinting that joint. Rather than using the straps, yes I agree with the reji tape maybe around the splint. Or just reji taping the fingers together. Hopefully things will start to heal in soon and we can get rid of the splint. Daughter verbalized understanding and will let the nurse at the assisted living know the plan. Monisha will try to come to the appointment on 11/10, but may need to reschedule due to work conflicts. Telephone Encounter - Jessika Queen R.N. - 11/04/2021 9:48 AM CDT Spoke with daughter Monisha. She and the staff at the memory care unit are frustrated with the splint. The first one wasn't working out so they went and bought another one and this new one isn't working either. The patient keeps taking the splint off and states that her finger hurts when wearing the splint. Daughter is looking for suggestions as to what to do to keep the finger straight? I suggested reji taping it for the time being if patient will allow it, continue icing the swollen area and to keepthe follow up appointment for 11/10 to discuss options. Daughter verbalized understanding and is hoping to hear from the doctor with recommendations before 11/10. Telephone Encounter - Valerie Lugo - 11/04/2021 8:54 AM CDT Reason for Communication: The patient's daughter , Monisha, would like a call back from Dr. Samuel or a nurse to discuss the splint he gave the patient. She says that the patient is in a memory care unit, and the splint just isn't working for her. She says the nurses there ended up going out and buying a different type of splint for the patient to see if that would work better, but that also is not working for her. She says the issue is that the patient keeps taking it off, and also that the patient uses a walker and so a splint makes that difficult. She says the area is still swollen, and the nurses are having her ice it twice a day as directed. She wants to know what Dr. Samuel would recommend that they do. She also wants to know, depending on what he recommends, if he still wants to see the patient on 11/10. Action Needed: Call Monsiha Special calling instructions: [phone] Ok to leave detailed message on voicemail? yes Portal- N/A documented in this encounter Plan of Treatment Not on filedocumented as of this encounter Visit Diagnoses Not on filedocumented in this encounter Care Teams Anime Designer Relationship Specialty Start Date End Date Elsewhere, Pcp PCP - General Industrial Engineering Technician 03/20/19 documented as of this encounter
--- OUTSIDE RECORDS SUMMARY | 2021-12-14 22:56 | XMS_ITS | Encounter Summary ---
:1955 Author Organization [facility] Address [address] [place] [address] Care Team Providers Name Role Phone Unassigned, Provider Primary Care Provider Unavailable Encounter Details Date Type Department Care Team Description 12/16/2008 PN Conversion Only [facility] [address] [place] [address] Social History Tobacco Use Types Packs/Day Years Used Date Smoking Tobacco: Never Assessed Sex Assigned at Date Recorded Not on file documented as of this encounter Plan of Treatment Upcoming Encounters Date Type Specialty Care Team Description 06/08/2022 Appointment Neurology Parris Lucas MD [address] [facility] [address] [facility] [address] [id number] (Wo rk) documented as of this encounter Visit Diagnoses Not on filedocumented in this encounter Care Teams Skein Yard Drier Relationship Specialty Start Date End Date Unassigned, Provider PCP - General 03/13/00 03/16/[address] [place] [id number] documented as of this encounter
--- OUTSIDE RECORDS SUMMARY | 2021-12-14 22:56 | XMS_ITS | Encounter Summary ---
:1955 Author Organization [facility] Address [address] [place] [address] Care Team Providers Name Role Phone Unassigned, Provider Primary Care Provider Unavailable Encounter Details Date Type Department Care Team Description 11/12/2009 Hospital Encounter [facility]V [facility] Sarah Celeste MA [address] [place] [address] Social History Tobacco Use Types Packs/Day Years Used Date Smoking Tobacco: Never Assessed Sex Assigned at Date Recorded Not on file documented as of this encounter Medications at Time of Discharge Medication Sig Dispensed Refills Start Date End Date carbidopa-levodopa (AKA Take 1-2.5 tablets 12 08/05 SINEMET) 25-100 MG tablet by mouth. LW Comment:1-2in am, 1at 11, +2.5 prn LW Addl Instr:Indicated for: Parkinson Disease carbidopa-levodopa (AKA Take 2.5 tablets by 240 12 SINEMET) 25-100 MG tablet mouth. LW Comment:3-4 times/day LW Addl Instr:Indicated for: Parkinson Disease CARBIDOPA-LEVODOPA OR Take 1 tablet by 270 4 08/27/19 10 mouth 3 times daily. LW Comment:1 at 530,1130,530 LW Addl Instr:Indicated for: Parkinson Disease DRUG NOT IN COMPUTER 1 each. LW 1 0 12/18/200807/2010 Comment:physical therapy LW Addl Instr:eval and treat for exercise program for Parkinson's disease oc-atudvsbavr-vrrgfkkdmrd Take 1 tablet by 90 3 12/0408/13/2010 min (FOLTX) 2.5 mg-25 mouth daily (every mg-2 mg tablet 24 hours). unknown medication Indications: PN: 0 08/26/2009 04/28/2010 unknown medication Indications: PN: 0 03/03/2009 04/28/2010 docusate sodium (AKA Take 1 capsule by 180 3 12/19/19 09 05/31/2013 COLACE) 100 MG capsule mouth daily (every 24 hours). LW Addaubrey Instr:Indicated for: Stool Softener Ergocalciferol (VITAMIN Take [...] encounter Progress Notes Parris Lucas MD - 11/12/2009 12:01 AM CDT [facility] [place] Follow-up Examination SUBJECTIVE Current concerns and update : This 54-year-old patient returns to [facility] [place] for follow-up of her Parkinson's disease. I saw her just recently in August, but she returns now because she has realized that she cannot continue to work. 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 Her job requires her to function from 7 to 930 in the morning and one to 430 in the afternoon driving the van. She does not have to do any paperwork, or care for the children, but does have to be attentive to the road conditions of all types during that time. She has found that she has not confident about her limb coordination or her concentration. She has reverted to taking Sinemet 25/100, 2 1/2 tablets 3 times a day, at roughly 5 30, 1130, and 530. She takes Sinemet CR 50/200 at bedtime. She is also taking folate, MiraLax, Docusate, vitamin D, and a couple of probiotic supplements. Past Medical History Update : No new issues Adverse Drug Reactions: Penicillin Current Medications: Reviewed today and updated on Health Profile in LastWord. See above Family History Update: No new information to report Social History Update: The main issue for her today is work. She lives in a private home with her , and there is no concern about her ability to function at home. Review of Systems: Urinary frequency. Otherwise negative multipoint review of systems. OBJECTIVE: Vital Signs: Blood pressure 112/68 sitting, 102/68 standing, weight 155, pulse 60. UPDRS functional score 9. General: She is thin, but fully interactive, and directs the conversation. Neurologic exam : I thought her mental status was normal in terms of attention, concentration, memory, of knowledge, and language. Her speech was animated. Her facial expression was mildly muted. She did have tremor in both hands, which she tended to minimize by holding her hands or sitting on them. I would describe the tremor as 2+. There was slight rigidity in the left arm and leg. She had mild reduction in the amplitude and smoothness of heel taps, pronation supination, and fingertip movements on the left side. Heel taps were noticeably worse on the right, and she actually viewed the right side as being her more affected side. She chaparro from a chair independently, and had a stiff but not stooped posture. Her gait was mildly but clearly Parkinsonian, with shortened steps and a reduced arm swing on the right. Bradykinesia was 2+. Postural stability was slightly impaired so that she took an extra step back after a deflection. ASSESSMENT: Stage II Parkinson's disease. Her symptoms are mostly right sided, but there really are bilateral symptoms. She has certainly impaired coordination on the left hand and arm, as well as impaired coordination of both legs. She has a somewhat more persistent tremor today than I recall from the past. She is also having a little more bradykinesia and balance issues. PLAN: I will send her a letter documenting her exam today. He do think she needs to notify her work place about her diagnosis, as I believe she already has. I believe she is initiating a disability process, but does not have a disability date yet. No medication changes. Return in 6 months. Barriers to care Total time : 25 minutes, 20 minutes of discussion about symptoms, progression, work issues. CC: Dr. Prakash Pérez. [facility], [address] [place] [address] *SH~DNS~PEM documented in this encounter Plan of Treatment Upcoming Encounters Date Type Specialty Care Team Description 06/08/2022 Appointment Neurology Parris Lucas MD [address] [facility] [address] [facility] [address] [address] (Wo rk) documented as of this encounter Visit Diagnoses Not on filedocumented in this encounter Care Teams Supervisor Production Department Relationship Specialty Start Date End Date Unassigned, Provider PCP - General 03/13/00 03/16/[address] [place] [phone] documented as of this encounter
--- OUTSIDE RECORDS SUMMARY | 2021-12-14 22:56 | XMS_ITS | Encounter Summary ---
:1955 Author Organization [facility] Address [address] [place] [address] Care Team Providers Name Role Phone Unassigned, Provider Primary Care Provider Unavailable Encounter Details Date Type Department Care Team Description 11/12/2009 PN Conversion Only CONV NEUROLOGY Parris Lucas MD [address] [facility] [address] [facility] [address] [place] [phone] (Wo rk) Social History Tobacco Use Types Packs/Day Years Used Date Smoking Tobacco: Never Assessed Sex Assigned at Date Recorded Not on file documented as of this encounter Plan of Treatment Upcoming Encounters Date Type Specialty Care Team Description 06/08/2022 Appointment Neurology Parris Lucas MD [address] [facility] [address] [facility] [address] [address] (Wo rk) documented as of this encounter Visit Diagnoses Not on filedocumented in this encounter Care Teams Oil Exploration Engineer Relationship Specialty Start Date End Date Unassigned, Provider PCP - General 03/13/00 03/16/14 [address] [place] [address] documented as of this encounter
--- OUTSIDE RECORDS SUMMARY | 2021-12-14 22:56 | XMS_ITS | Encounter Summary ---
:1955 Author Organization [facility] Address [address] [place] [address] Care Team Providers Name Role Phone Elsewhere, Pcp Primary Care Provider Unavailable Reason for Referral Outpatient (Routine) - Closed Specialty Diagnoses / Procedures Referred By Contact Refer red To Contact Diagnoses Pain Hand Right Dominic Samuel D.O. [facility] [place] Procedures DX Fingers Right 2+ [address] [place] [address] Referral ID Status Reason Start Date Expiration Date Visits Requ ested Visits Authorized [id number] Closed 10/21/2021 10/21/2022 1 1 Reason for Visit Outpatient (Routine) - Closed Specialty Diagnoses / Procedures Referred By Contact Refer red To Contact Diagnoses Pain Hand Right Dominic Samuel D.O. [facility] Region Procedures DX Fingers Right 2+ [address] [place] [address] Referral ID Status Reason Start Date Expiration Date Visits Requ ested Visits Authorized [id number] Closed 10/21/2021 10/21/2022 1 1 Encounter Details Date Type Department Care Team Description 10/21/2021 Hospital Encounter Department of Dominic Samuel, Pain Hand Right Radiology, [place] [facility], in [place] [address] [place], [place] [address] [place] [address] [place], [place] [phone] (Work) [phone] Social History Tobacco Use Types Packs/Day Years [...] mouth daily. Take at tablet 5 PM zfwbwaeto-oojihxic-yqhnemu Take 1 tablet by 0 one (STALEVO) [...] Name Priority Date/Time Associated Comments Diagnosis DX FINGERS RIGHT RAD - Routine 10/21/2021 2:19 Pain Hand Right Resu lts for this 2+ VIEWS (most inpatients PM CDT procedure a re in and all the results outpatients) section. documented in this encounter Results DX Fingers Right 2+ [...] phalanx. Dominic [facility] GRANT documented in this encounter Visit Diagnoses Diagnosis Pain Hand Right documented in this encounter Care Teams Otm Consultant Relationship Specialty Start Date End Date Elsewhere, Pcp PCP - General Pneumatic Tube Fitter 03/20/19 documented as of this encounter
--- OUTSIDE RECORDS SUMMARY | 2021-12-14 22:56 | XMS_ITS | Encounter Summary ---
:[address] [facility] Address [address] [place] [address] Care Team Providers Name Role Phone Unavailable Primary Care Provider Unavailable Encounter Details Date Type Department Care Team Description 04/01/2009 Hospital Encounter HX RST [facility] Chela Mcdowell, CEP [address] [place] [phone] Social History Tobacco Use Types Packs/Day Years Used Date Smoking Tobacco: Never Assessed Sex Assigned at Date Recorded Not on file documented as of this encounter Plan of Treatment Not on filedocumented as of this encounter Visit Diagnoses Not on filedocumented in this encounter
--- OUTSIDE RECORDS SUMMARY | 2021-12-14 22:57 | XMS_ITS | Encounter Summary ---
:1955 Author Organization [facility] Address [address] [place] [address] Care Team Providers Name Role Phone Unavailable Primary Care Provider Unavailable Encounter Details Date Type Department Care Team Description 03/26/2009 Hospital Encounter HX NO MAPPING Social History Tobacco Use Types Packs/Day Years Used Date Smoking Tobacco: Never Assessed Sex Assigned at Date Recorded Not on file documented as of this encounter Plan of Treatment Not on filedocumented as of this encounter Visit Diagnoses Not on filedocumented in this encounter
--- OUTSIDE RECORDS SUMMARY | 2021-12-14 22:57 | XMS_ITS ---
:1955 Author Organization [facility] Prof frye [facility] Address [address] [place] [address] Care Team Providers Name Role Phone Rahul Gutierrez Unavailable Unavailable PROBLEMS Type Condition ICD9-CM Code LCM36-KG Code Onset Condition SNO MED Code Dates Status Problem Other specified I73.89 Active 4000 77512 peripheral vascular diseases ALLERGIES No Information ENCOUNTERS Encounter Location Date Diagnosis [place] [address] [facility], [place] [address], Oct, [place] [address] vascular disease s I73.89 ; Onychomycosis of toenail B35.1 ; Pain in right to e(s) M79.674 ; Pain of toe of l eft foot M79.675 and Dystrophic n ail L60.3 [place] [address] [facility], July, [place] [address] vascular disease s I73.89 ; Onychomycosis of toenail B35.1 ; Pain in right to e(s) M79.674 ; Pain of toe of l eft foot M79.675 ; Dystrophic vic l L60.3 and Hyperkeratosis L 85.9 [place] [address] [facility], May, [place] [address] vascular disease s I73.89 ; Onychomycosis of toenail B35.1 ; Pain in right to e(s) M79.674 ; Pain of toe of l eft foot M79.675 ; Dystrophic vic l L60.3 and Hyperkeratosis L 85.[address], Jan, [place] [address] vascular disease s I73.89 ; Onychomycosis of toenail B35.1 ; Pain in right to e(s) M79.674 ; Pain of toe of l eft foot M79.675 ; Dystrophic vic l L60.3 and Hyperkeratosis L 85.9 [place] [address] [facility], Nov, [place] [address] vascular disease s I73.89 ; Onychomycosis of toenail B35.1 ; Pain in right to e(s) M79.674 ; Pain of toe of l eft foot M79.675 ; Dystrophic vic l L60.3 and Hyperkeratosis L 85.9 [place] [address] [facility], Sep, [place] [address] vascular disease s I73.89 ; Onychomycosis of toenail B35.1 ; Pain in right to e(s) M79.674 ; Pain of toe of l eft foot M79.675 ; Dystrophic vic l L60.3 and Hyperkeratosis L 85.9 [place] [address] [facility], July, [place] [address] vascular disease s I73.89 ; Onychomycosis of toenail B35.1 ; Pain in right to e(s) M79.674 ; Pain of toe of l eft foot M79.675 and Dystrophic n ail L60.[address], Apr, [place] [address] vascular disease s I73.89 ; Onychomycosis of toenail B35.1 ; Pain in right to e(s) M79.674 ; Pain of toe of l eft foot M79.675 ; Dystrophic vic l L60.3 and Hyperkeratosis L 85.[address], Feb, [place] [address] vascular disease s I73.89 ; Onychomycosis of toenail B35.1 ; Pain in right to e(s) M79.674 ; Pain of toe of l eft foot M79.675 ; Dystrophic vic l L60.3 and Hyperkeratosis L 85.9 [facility] [address] [facility], Dec, Onych omycosis of toenail B35.1 ; [place] [address] Other specified peripheral vascular disease s I73.89 ; Pain in right toe(s) M79.674 ; Pain of toe of left f oot M79.675 ; Dystrophic nail L60.3 and Hyperkeratosis L 85.9 IMMUNIZATIONS No Known Immunizations SOCIAL HISTORY Never Assessed REASON FOR REFERRAL FUNCTIONAL STATUS PLAN OF CARE VITAL SIGNS MEDICATIONS Medication Instructions Dosage Frequency Start Date End Date Duration S tatus Nuplazid 34 MG 30 Active Omeprazole 20 MG 28 Active Fludrocortisone 28 Active Acetate 0.1 MG Carbidopa-Levodopa 28 Activ e ER 50-200 MG Carbidopa-Levodopa 28 Activ e 25-250 MG Escitalopram Oxalate 28 Act tung 20 MG Mirtazapine 15 MG 28 Active PROCEDURES Procedure Date Ordered Result Body Site DEBRIDE NAIL 1-5 Nov 10, 2020 CUR MEDS NO DOC ELG CLN RSN NOT GVN Feb 10, 2020 DEBRIDE NAIL 1-5 July 06, 2020 TRIM SKIN LESION Jan 12, 2021 DOC MEDS VERIFIED W/PT OR RE May 25, 2021 TRIM SKIN LESION Nov 10, 2020 DOC MEDS VERIFIED W/PT OR RE Jan 12, 2021 TRIM SKIN LESION Apr 27, 2020 TRIM DYSTROPHIC NAILS ANY NUMBER May 25, 2021 TRIM SKIN LESION September 08, 2020 DEBRIDE NAIL 1-5 May 25, 2021 CUR MEDS NO DOC ELG CLN RSN NOT GVN Nov 10, 2020 DEBRIDE NAIL 1-5 Oct 05, 2021 DEBRIDE NAIL 1-5 Jan 12, 2021 CUR MEDS NO DOC ELG CLN RSN NOT GVN Apr 27, 2020 TRIM SKIN LESION Feb 10, 2020 TRIM SKIN LESION Dec 09, 2019 CUR MEDS NO DOC ELG CLN RSN NOT GVN September 08, 2020 DOMICIL/R-HOME VISIT NEW PAT Dec 09, 2019 TRIM DYSTROPHIC NAILS ANY NUMBER July 06, 2020 DOC MEDS VERIFIED W/PT OR RE July 27, 2021 DEBRIDE NAIL 1-5 September 08, 2020 TRIM DYSTROPHIC NAILS ANY NUMBER Oct 05, 2021 DEBRIDE NAIL 1-5 Feb 10, 2020 CUR MEDS NO DOC ELG CLN RSN NOT GVN Dec 09, 2019 DEBRIDE NAIL 1-5 July 27, 2021 TRIM DYSTROPHIC NAILS ANY NUMBER Dec 09, 2019 TRIM SKIN LESION July 27, 2021 TRIM SKIN LESION May 25, 2021 No pt tbco scrn rng Dec 09, 2019 TRIM DYSTROPHIC NAILS ANY NUMBER Feb 10, 2020 TRIM DYSTROPHIC NAILS ANY NUMBER July 27, 2021 DEBRIDE NAIL 1-5 Apr 27, 2020 TRIM DYSTROPHIC NAILS ANY NUMBER Nov 10, 2020 DOC MEDS VERIFIED W/PT OR RE Oct 05, 2021 TRIM DYSTROPHIC NAILS ANY NUMBER Apr 27, 2020 TRIM DYSTROPHIC NAILS ANY NUMBER September 08, 2020 TRIM DYSTROPHIC NAILS ANY NUMBER Jan 12, 2021 DEBRIDE NAIL 1-5 Dec 09, 2019 CUR MEDS NO DOC ELG CLN RSN NOT GVN July 06, 2020 RESULTS No Results REASON FOR VISIT [place] [facility], [place] [facility], Painful nails, [place], MC, Painful nails, Painful callus,[place], Painful nails, Painful callus, [place], Painful nails, Painful callus, [place], Painful nails, Painful callus, [place], Painful nails, Painful callus, [place], Painful nails, [place], Painful nails, Painful callus, [place], Painful nails, Painful callus, [place], Painful nails, Painful callus Insurance Providers [facility] Member Patient Patient Patient Patient Patient Subscriber Subscriber Subscriber Group Insurance Plan Plan Plan Plan ID Relationship Address Phone Name Date of ID Name Date of No Type Insurance Insurance Insurance Coverage to Subscriber Address Phone Name Dates [facility] [phone] [facility] self Daya [id number] [facility] [id number] Medicare [id number] Medicare h [place] [id number] Supplement [place] Supplement [id number] Medicare [id number] [place] [phone] Medicare self Daya [id number] [place] [address] [place] [address]
--- OUTSIDE RECORDS SUMMARY | 2021-12-14 22:57 | XMS_ITS | Encounter Summary ---
:1955 Author Organization [facility] Address [address] [place] [address] Care Team Providers Name Role Phone Unavailable Primary Care Provider Unavailable Encounter Details Date Type Department Care Team Description 01/31/2007 Hospital Encounter HX NO MAPPING Social History Tobacco Use Types Packs/Day Years Used Date Smoking Tobacco: Never Assessed Sex Assigned at Date Recorded Not on file documented as of this encounter Plan of Treatment Not on filedocumented as of this encounter Visit Diagnoses Not on filedocumented in this encounter
--- OUTSIDE RECORDS SUMMARY | 2021-12-14 22:57 | XMS_ITS | Encounter Summary ---
:1955 Author Organization [facility] Address [address] [place] [address] Care Team Providers Name Role Phone Unavailable Primary Care Provider Unavailable Encounter Details Date Type Department Care Team Description 07/14/2006 Hospital Encounter HX NO MAPPING Social History Tobacco Use Types Packs/Day Years Used Date Smoking Tobacco: Never Assessed Sex Assigned at Date Recorded Not on file documented as of this encounter Plan of Treatment Not on filedocumented as of this encounter Visit Diagnoses Not on filedocumented in this encounter
--- OUTSIDE RECORDS SUMMARY | 2021-12-14 23:03 | XMS_ITS ---
:1955 Author Organization [facility] Prof frye [facility] Address [address] [place] [address] Care Team Providers Name Role Phone Rahul Gutierrez Unavailable Unavailable PROBLEMS Type Condition ICD9-CM Code ALT98-NE Code Onset Condition SNO MED Code Dates Status Problem Other specified I73.89 Active 4000 94096 peripheral vascular diseases ALLERGIES No Information ENCOUNTERS Encounter Location Date Diagnosis [place] [address] [facility], [place] [address], Oct, [place] [address] vascular disease s I73.89 ; Onychomycosis of toenail B35.1 ; Pain in right to e(s) M79.674 ; Pain of toe of l eft foot M79.675 and Dystrophic n ail L60.[address] [place] [address] [facility], July, [place] [address] vascular disease s I73.89 ; Onychomycosis of toenail B35.1 ; Pain in right to e(s) M79.674 ; Pain of toe of l eft foot M79.675 ; Dystrophic vic l L60.3 and Hyperkeratosis L 85.[address] [place] [address] [facility], May, [place] [address] vascular disease s I73.89 ; Onychomycosis of toenail B35.1 ; Pain in right to e(s) M79.674 ; Pain of toe of l eft foot M79.675 ; Dystrophic vic l L60.3 and Hyperkeratosis L 85.[address], Jan, [place] [address] vascular disease s I73.89 ; Onychomycosis of toenail B35.1 ; Pain in right to e(s) M79.674 ; Pain of toe of l eft foot M79.675 ; Dystrophic vic l L60.3 and Hyperkeratosis L 85.[address] [place] [address] [facility], Nov, [place] [address] vascular disease s I73.89 ; Onychomycosis of toenail B35.1 ; Pain in right to e(s) M79.674 ; Pain of toe of l eft foot M79.675 ; Dystrophic vic l L60.3 and Hyperkeratosis L 85.[address] [place] [address] [facility], Sep, [place] [address] vascular disease s I73.89 ; Onychomycosis of toenail B35.1 ; Pain in right to e(s) M79.674 ; Pain of toe of l eft foot M79.675 ; Dystrophic vic l L60.3 and Hyperkeratosis L 85.[address] [place] [address] [facility], July, [place] [address] vascular disease s I73.89 ; Onychomycosis of toenail B35.1 ; Pain in right to e(s) M79.674 ; Pain of toe of l eft foot M79.675 and Dystrophic n ail L60.[address], Apr, [place] [address] vascular disease s I73.89 ; Onychomycosis of toenail B35.1 ; Pain in right to e(s) M79.674 ; Pain of toe of l eft foot M79.675 ; Dystrophic vic l L60.3 and Hyperkeratosis L 85.[address], Feb, [place] [address] vascular disease s I73.89 ; Onychomycosis of toenail B35.1 ; Pain in right to e(s) M79.674 ; Pain of toe of l eft foot M79.675 ; Dystrophic vic l L60.3 and Hyperkeratosis L 85.9 [facility] [address] [facility], Dec, Onych omycosis of toenail B35.1 ; [place] [address] Other specified peripheral vascular disease s I73.89 [...] Ordered Result Body Site DEBRIDE NAIL 1-5 July 27, 2021 DOC MEDS VERIFIED W/PT OR RE Jan 12, 2021 DEBRIDE NAIL 1-5 Oct 05, 2021 TRIM SKIN LESION Feb 10, 2020 TRIM DYSTROPHIC NAILS ANY NUMBER Dec 09, 2019 DOMICIL/R-HOME VISIT NEW PAT Dec 09, 2019 CUR MEDS NO DOC ELG CLN RSN NOT GVN Nov 10, 2020 TRIM SKIN LESION July 27, 2021 CUR MEDS NO DOC ELG CLN RSN NOT GVN July 06, 2020 TRIM SKIN LESION May 25, 2021 DEBRIDE NAIL 1-5 Apr 27, 2020 CUR MEDS NO DOC ELG CLN RSN NOT GVN September 08, 2020 TRIM SKIN LESION Jan 12, 2021 DEBRIDE NAIL 1-5 September 08, 2020 DOC MEDS VERIFIED W/PT OR RE July 27, 2021 DEBRIDE NAIL 1-5 July 06, 2020 DEBRIDE NAIL 1-5 Feb 10, 2020 CUR MEDS NO DOC ELG CLN RSN NOT GVN Feb 10, 2020 TRIM SKIN LESION Nov 10, 2020 TRIM DYSTROPHIC NAILS ANY NUMBER Oct 05, 2021 DOC MEDS VERIFIED W/PT OR RE May 25, 2021 DEBRIDE NAIL 1-5 Jan 12, 2021 TRIM SKIN LESION Dec 09, 2019 TRIM DYSTROPHIC NAILS ANY NUMBER July 06, 2020 CUR MEDS NO DOC ELG CLN RSN NOT GVN Dec 09, 2019 DEBRIDE NAIL 1-5 Nov 10, 2020 CUR MEDS NO DOC ELG CLN RSN NOT GVN Apr 27, 2020 TRIM SKIN LESION Apr 27, 2020 TRIM SKIN LESION September 08, 2020 No pt tbco scrn rng Dec 09, 2019 TRIM DYSTROPHIC NAILS ANY NUMBER Jan 12, 2021 DEBRIDE NAIL 1-5 Dec 09, 2019 DEBRIDE NAIL 1-5 May 25, 2021 TRIM DYSTROPHIC NAILS ANY NUMBER September 08, 2020 TRIM DYSTROPHIC NAILS ANY NUMBER Feb 10, 2020 TRIM DYSTROPHIC NAILS ANY NUMBER July 27, 2021 TRIM DYSTROPHIC NAILS ANY NUMBER May 25, 2021 TRIM DYSTROPHIC NAILS ANY NUMBER Nov 10, 2020 DOC MEDS VERIFIED W/PT OR RE Oct 05, 2021 TRIM DYSTROPHIC NAILS ANY NUMBER Apr 27, 2020 RESULTS No Results REASON FOR VISIT [...] [place], Painful nails, Painful callus Insurance Providers [facility] Member Patient Patient Patient Patient Patient Subscriber Subscriber Subscriber Group Insurance Plan Plan Plan Plan ID Relationship Address Phone Name Date of ID Name Date of No Type Insurance Insurance Insurance Coverage to Subscriber Address Phone Name Dates [facility] [phone] [facility] self Daya [id number] [facility] [id number] Medicare h [place] [id number] Supplement [place] Supplement [id number] Medicare [address] [place] [phone] Medicare self Daya [id number] [place] [address]
--- NOTE | 2021-12-15 00:08 | ED.NURSE ---
nose lip cleaned
[2021-12-15 01:00] VITALS: BP 150/62; PULSE 82; RESP 16; TEMP 36.2; O2SAT 97
--- NOTE | 2021-12-15 01:55 | ED.NURSE ---
pt sent home with family, instymeds script given. paperwork and discharge info given to family.
== END 2021-12-15 01:55 | disposition home or self-care (01) ==
PROVIDERS: Emergency Provider Family Medicine
DX: S02.2XXA Fracture of nasal bones, initial encounter for closed fracture (principal); R04.0 Epistaxis; S01.21XA Laceration without foreign body of nose, initial encounter; W19.XXXA Unspecified fall, initial encounter
CPT/HCPCS: 12011; 70450; 70486; 72125; 99284; A9270

== ENCOUNTER 2021-12-18 18:23 | Emergency (ER) | payer MEDICARE, BC, SELFPAY ==
[2021-12-18 18:33] VITALS: BP 162/85; PULSE 85; RESP 20; TEMP 36.8; O2SAT 98; BMI 22.8
--- NOTE | 2021-12-18 19:12 | CRLHL7_ITS ---
For Patients: As a result of the Cures Act, medical imaging exams and procedure reports are released immediately into your electronic medical record. You may view this report before your referring provider. If you have questions, please contact your health care provider. INDICATION: Shortness of breath TECHNIQUE: Chest radiograph 1 view COMPARISON: 06/27/2021 FINDINGS: Cardiovascular and mediastinum: The heart silhouette is normal in size and morphology. The mediastinum is normal in appearance. Lungs and pleural spaces: Both lungs are unremarkable in appearance. No sign of pleural effusion seen. No pneumothorax is identified. Bones and soft tissues: No significant findings. IMPRESSION: 1. No acute cardiopulmonary disease is seen. Dictated by Arnulfo Mercado MD @ 12/18/2021 7:56:10 PM Dictated by: Arnulfo Mercado MD @ 12/18/2021 19:56:16 (Electronically Signed)
--- OUTSIDE RECORDS SUMMARY | 2021-12-18 19:22 | XMS_ITS | Encounter Summary ---
:1955 Author Organization [employer] Address [address], [place] [address] Care Team Providers Name Role Phone Joanne Higuera APRN, CNP Primary Care Provider [phone] Reason for Visit Reason Comments Balance/gait Dysfunction Therapies (Routine) - Closed Specialty Diagnoses / Procedures Referred By Contact Refer red To Contact Diagnoses Parkinson's disease (HRC) Parris Lucas MD [address] [facility] [address] [place], [place] [address] Referral ID Status Reason Start Date Expiration Date Visits Requ ested Visits Authorized [id number] Closed 06/18/2020 06/18/2021 1 1 Encounter Details Date Type Department Care Team Description 08/26/2020 Office Visit [place] Physical Lilly Cunningham on's disease (HRC) (Primary Dx); Therapy RALPH [place] Gait instability; [address] Histo ry of falling; Drive Dr Santiagoting [place], [place] [phone] Social History Tobacco Use Types Packs/Day Years Used Date Smoking Tobacco: Never Sex Assigned at Date Recorded Not on file documented as of this encounter Progress Notes Diann Cunningham PT - 08/26/2020 11:00 AM CDT Visit Date: 08/26/2020 Patient : 1955 Physical Therapy Parkinson Evaluation/Plan of Care [facility] Initial Certification Period: 08/26/2020 to 11/25/20 Referring Provider: Dr. Parris uLcas Visit Diagnosis/ICD: 1. Parkinson's disease (HRC) 2. Gait instability 3. History of falling 4. Festinating gait Precautions: Fall precautions. orthostatic hypotension Onset/Referral Date: 08/2020 Reason for Referral: Patient wants a trial of the UStep walker Orders: Evaluate and treat. [facility] [place] Services: None. Exacerbation Date: 08/04/2020 Last Referring [...] by her daughter Monisha who lives in [place] Living Situation: Assisted living facility in [place] Formal Exercises: limited during pandemic; classes just [...] 1-2 visits. Total Treatment: 55 minutes The farmworker rice is completed by the therapist and the referring clinician's electronic signature certifies medical necessity for the plan above. documented in this encounter Plan of Treatment Upcoming Encounters Date Type Specialty Care Team Description 06/08/2022 Appointment Neurology Parris Lucas MD [address] [facility] [address] [facility] [place] [address] (Wo rk) Scheduled Referrals Name Type Priority Associated Diagnoses [facility] Referral Routine Parkinson's disease (HRC ) Ordered: 06/18/2020 documented as of this encounter Visit Diagnoses Diagnosis Parkinson's disease (HRC) - Primary Gait instability Abnormality of gait History of falling Personal history of fall Festinating gait Abnormality of gait documented in this encounter Care Teams Leasing Professional Relationship Specialty Start Date End Date Joanne Higuera APRN, FOREST FIRE WARDEN PCP - General Nurse Practitioner 06/18/20 [address] [place] [address] documented as of this encounter
--- OUTSIDE RECORDS SUMMARY | 2021-12-18 19:22 | XMS_ITS | Encounter Summary ---
:1955 Author Organization [employer] Address [address] [place] [address] Care Team Providers Name Role Phone Joanne Higuera APRN, CNP Primary Care Provider [phone] Reason for Visit Reason Comments Follow-up Refill Florinef 0.1mg, Midodrine 5m g, Nuplazid 34mg, Mirtazapine 15mg, Carbidopa/Levodopa 25/250mg, Carbidopa/Levodopa CR 50/200mg Encounter Details Date Type Department Care Team Description 06/21/2021 Office Visit [place] [facility] Parris Lucas MD Parkinson's disease (HRC) (Primary Dx); [address] [facility] Mild cognitive impairment; [address] Neurogenic orthostatic hypotension (HRC) ; [place], [place] Burni ng tongue; [id number] Dyskinesia, drug-induced; [phone] (Wo rk) Psychosis due to Parkinson's disease [...] 11:15 AM CDT Please contact us using Cumulocityt or by calling the [facility] nurse line at [phone]. Two easy ways to stay connected with what is going on at [place]: If you have not already done so, we encourage you to sign up (for free) to be on our e-mailing list,so that you will receive information about upcoming classes, events, and activities hosted by [facility]! To sign up, simply send an email to [email or web address] indicating that you would like to be included. 2. Follow us on Facebook to learn more about current news and upcoming events. Find us at [facility] [place]! Sign up for evening cares at your facility! Use the toilet every 2 hours during the day when you take your pills Increase the 1pm sinemet to a whole pill Reduce the bedtime mirtazapine to 1/2 pill Return in October! documented in this encounter Progress Notes Parris Lucas MD - 06/21/2021 11:10 AM CDT Images from the original note were not included. [address] [place] [address] ANNUAL FOLLOW-UP EXAMINATION SUBJECTIVE Chief Complaint Patient presents with ??? Follow-up ??? Refill Florinef 0.1mg, Midodrine 5mg, Nuplazid 34mg, Mirtazapine 15mg, Carbidopa/Levodopa 25/250mg, Carbidopa/Levodopa CR 50/200mg Neurological update and patient concerns This patient was seen in person. The patient and doctor were at [facility]. The visit began at 11;34am and ended [...] and updated on the Health Profile of [facility]. Current medications Reviewed today and updated on Health Profile in [facility]. Outpatient Medications Prior to Visit Medication [...] living 2. 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 Driving status: not driving [...] three numbers) Send copy to: Joanne Higuera CNP,??[address] [facility] [address] ?? Parris Lucas MD 12:30 PM 06/21/2021 Note: The 11 items marked with an asterisk (*) are [place] [employer] 2015 quality measures for Parkinson's disease (Factor et al, Neurology 86: 2278- 2283, 2016) documented in this encounter Plan of Treatment Upcoming Encounters Date Type Specialty Care Team Description 06/08/2022 Appointment Neurology Parris Lucas MD [address] [facility] [address] [facility] N [id number] (Wo rk) documented as of this encounter Visit Diagnoses Diagnosis Parkinson's disease (HRC) - Primary Mild cognitive impairment Mild cognitive impairment, so stated Neurogenic orthostatic hypotension (HRC) Burning tongue Glossodynia Dyskinesia, drug-induced Lack of coordination 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
--- OUTSIDE RECORDS SUMMARY | 2021-12-18 19:22 | XMS_ITS | Encounter Summary ---
:1955 Author Organization [facility] Address [address] [place] [address] Care Team Providers Name Role Phone Derek Norton MD Primary Care Provider Encounter Details Date Type Department Care Team Description 10/01/2019 Orders Only Initial Department Provider, Chelsey, [facility] JANIE GRAVES MD [place], [place] [address] Interface provider [phone] [place] [address] Social History Tobacco Use Types Packs/Day Years Used Date Smoking Tobacco: Never Sex Assigned at Date Recorded Not on file documented as of this encounter Plan of Treatment Upcoming Encounters Date Type Specialty Care Team Description 06/08/2022 Appointment Neurology Parris Lucas MD [address] [facility] [address] [facility] N [address] (Wo rk) documented as of this encounter [...] on filedocumented in this encounter Care Teams Soa Integration Developer Relationship Specialty Start Date End Date Derek Norton MD PCP - General Family Practice 08/21/18 06/17/[address] [place] [address] [place] [address] documented as of this encounter
--- OUTSIDE RECORDS SUMMARY | 2021-12-18 19:22 | XMS_ITS | Encounter Summary ---
:1955 Author Organization [email or web address] Address [address] [place] [address] Care Team Providers Name Role Phone Derek Norton MD Primary Care Provider Reason for Visit Reason Comments Prior Authorization For Medication Nuplazid (06/26/2019 to 09/23/20) Encounter Details Date Type Department Care Team Description 09/23/2019 Telephone [place] [facility] Chelsie Toribio, Prior Authorization For [address] [place] pediatric allergist (Nuplazid Drive (06/26/2019 to 09/23/20)) [place] [address] Social History Tobacco Use Types Packs/Day Years Used Date Smoking Tobacco: Never Sex Assigned at Date Recorded Not on file documented as of this encounter Nursing Notes Joselyn Hernandez RN - 09/24/2019 12:04 PM CDT Received notice PA was approved in [facility]. Nuplazid Connect updated. Joselyn Hernandez RN - 09/24/2019 10:06 AM CDT Received clinical questions from [facility]. Completed questionnaire and faxed back Awaiting decision. Chelsie Toribio RN - 09/23/2019 1:18 PM CDT Requested PA for Nuplazid through [facility]. documented in this encounter Plan of Treatment Upcoming Encounters Date Type Specialty Care Team Description 06/08/2022 Appointment Neurology Parris Lucas MD [address] [facility] [address] [place] [address] (Wo rk) documented as of this encounter Visit Diagnoses Not on filedocumented in this encounter Care Teams Rehabilitation Physician Relationship Specialty Start Date End Date Derek Norton MD PCP - General Family Practice 08/21/18 06/17/20 [facility] [address] [place] [address] documented as of this encounter
--- OUTSIDE RECORDS SUMMARY | 2021-12-18 19:22 | XMS_ITS | Clinical Summary ---
:1955 Author Organization [email or web address] Address [address] [place] [address] Care Team Providers Name Role Phone Joanne Higuera APRN, CNP Primary Care Provider [phone] Source Comments You are receiving this document [...] for each transition of care or referral. [email or web address] Allergies Active Allergy Reactions Severity Noted Date [...] 10/04/2021 Office Visit Neurology Parris Lucas MD [facility] n's disease (C) (Primary Dx); Mild cognitive impairment from Last 3 Months Immunizations Name Administration Dates Next Due Influenza IIV4 (Quadrivalent) 0.5mL 12/20/2018, 12/26/2016, 12/05/2014 (08178) Pfizer (Comirnaty) COVID-19, 12+ Yrs 04/13/2020, 03/23/2020 [facility] Social History Tobacco Use Types Packs/Day Years [...] Description 06/08/2022 Appointment Neurology Parris Lucas MD [address] [facility] [address] [facility] [address] (Wo rk) Health Maintenance Due Date Last [...] Address T ype Group Dates MEDICARE MEDICARE [id number] 2012-Godwin penare nt BCBS BCBS MEDICARE 2016-Pres [phone] [address] [address] Medicare SUPPLEMENT B ent [address] [place] [address] Darlene Drew Personal/Family Self [address] (Home) [place] [address] Clifton Drew Personal/Family Self 01/02/1951 [address] (Home) [place], [place] [phone] [address] (Work) Care Teams Single Wire Saw Operator Relationship Specialty Start Date End Date Joanne Higuera, RETAIL AGENT, NANOTECHNOLOGIST PCP - General Nurse Practitioner 06/18/20 [address] [place] [address]
--- OUTSIDE RECORDS SUMMARY | 2021-12-18 19:22 | XMS_ITS | Encounter Summary ---
:1955 Author Organization [employer] Address [address] [place] [address] Care Team Providers Name Role Phone Derek Norton MD Primary Care Provider Reason for Visit Reason Comments Samples Nuplazid Encounter Details Date Type Department Care Team Description 08/29/2019 Notes/Orders [place] [facility] Chelsie Toribio, RN [address] [place], [place] [address] Social History Tobacco Use Types Packs/Day Years Used Date Smoking Tobacco: Never Sex Assigned at Date Recorded Not on file documented as of this encounter Progress Notes Chelsie Toribio RN - 08/29/2019 1:50 PM CDT Samples of Nuplazid give (1 week supply). Will fax EKG order to [facility]. Told Jessica and her daughter not to start until they get the okay from Dr. Lucas to start drug. Will submit Nuplazid paperwork once EKG is clear. Paperwork in Nuplazid folder. Called [facility] and asking for fax number to fax EKG order. Faxed order to [facility] FAX: [phone]. Asked them to fax us back results. documented in this encounter Plan of Treatment Upcoming Encounters Date Type Specialty Care Team Description 06/08/2022 Appointment Neurology Parris Lucas MD [address] [facility] [address] [facility] [id number] (Wo rk) documented as of this encounter Visit Diagnoses Not on filedocumented in this encounter Care Teams Dynamite Shooter Relationship Specialty Start Date End Date Derek Norton MD PCP - General Family Practice 08/21/18 06/17/20 [facility] [address] [place] [address] documented as of this encounter
--- OUTSIDE RECORDS SUMMARY | 2021-12-18 19:22 | XMS_ITS | Encounter Summary ---
:1955 Author Organization [email or web address] Address [address] [place] [address] Care Team Providers Name Role Phone Joanne Higuera APRN, CNP Primary Care Provider [phone] Reason for Visit Reason Comments Follow-up Blood Pressure, low Once a week passes out Encounter Details Date Type Department Care Team Description 10/04/2021 Office Visit [place] [facility] Parris Lucas MD Parkinson's disease (HRC) (Primary Dx); [address] [facility] Mild cognitive impairment [address] [place] [id number] (Wo rk) Social History Tobacco Use Types [...] us using MyChart or by calling the [facility] nurse line at [phone]. Two easy ways to stay connected with what is going on at [place]: If you have not already done so, we encourage you to sign up (for free) to be on our e-mailing list,so that you will receive information about upcoming classes, events, and activities hosted by [facility]! To sign up, simply send an email to [email or web address] indicating that you would like to be included. 2. Follow us on Facebook to learn more about current news and upcoming events. Find us at [facility] Breanna Sher! Sit before you faint when things turn blue! Let me know about the black toilet seat Consider getting distance glasses for distance and reading glasses for reading Return in 6 months documented in this encounter Progress Notes Parris Lucas MD - 10/04/2021 4:10 PM CDT Images from the original note were not included. [address] [place] [address] FOLLOWUP EXAMINATION SUBJECTIVE Chief Complaint Patient presents with Follow-up Blood Pressure, low Once a week passes out Current concerns and update: This visit was conducted: in person. The patient was in the clinic and the doctor was at [facility]. The patient-facing part of the visit began [...] is taking sinemet 25/250 1 pill at 8-5-28-1-3-5-7 and a CR at bedtime (half a [...] updated on Health Profile in [facility]. Allergies Allergen Reactions Penicillins PN: LW Reaction: Fever Sulfa Antibiotics PN: rash Current Medications: Reviewed today and updated on Health Profile in [facility]. Outpatient Medications Prior to Visit Medication [...] file. Social History Update: She moved to [facility] care Review of Systems: Dizziness, dry [...] her knee is bothering her (she is [id number], but the decision has been made not [...] copy of note to: Joanne Higuera CNP, [address] [place] [address] Parris Lucas MD 4:28 PM 10/04/2021 documented in this encounter Plan of Treatment Upcoming Encounters Date Type Specialty Care Team Description 06/08/2022 Appointment Neurology Parris Lcuas MD [address] [facility] [address] [facility] [id number] (Wo rk) documented as of this encounter Visit Diagnoses Diagnosis Parkinson's disease (HRC) - Primary Mild cognitive impairment Mild cognitive impairment, so stated documented in this encounter Care Teams Furnace Door Tender Relationship Specialty Start Date End Date Joanne Higuera APRN, CNP PCP - General Nurse Practitioner 06/18/20 [address] [place] [id number] documented as of this encounter
--- OUTSIDE RECORDS SUMMARY | 2021-12-18 19:22 | XMS_ITS | Encounter Summary ---
:1955 Author Organization [facility] Address [address] [place] [address] Care Team Providers Name Role Phone Derek Norton MD Primary Care Provider Reason for Visit Reason Comments UPDATE Encounter Details Date Type Department Care Team Description 09/10/2019 Telephone [place] [facility] Joselyn Hernandez, RN UPDATE [address] [place], [place] [address] Social History Tobacco Use [...] 06/08/2022 Appointment Neurology Parris Lucas MD [address] [facility] [address] [place] [address] (Wo rk) documented as of this encounter Visit Diagnoses Not on filedocumented in this encounter Care Teams Floor Director Relationship Specialty Start Date End Date Derek Norton MD PCP - General Family Practice 08/21/18 06/17/20 [facility] [address] [place] [address] documented as of this encounter
--- OUTSIDE RECORDS SUMMARY | 2021-12-18 19:22 | XMS_ITS | Encounter Summary ---
:1955 Author Organization [employer] Address [address] [place] [address] Care Team Providers Name Role Phone Joanne Higuera APRN, FLORES Primary Care Provider [phone] Reason for Visit Reason Comments Questions Encounter Details Date Type Department Care Team Description 01/18/2021 Telephone [place] [facility] Fior Daniel RN Questions [address] [place] [address] Social History Tobacco Use Types Packs/Day [...] further clarification is needed or further questions. T METAL SMITH Fior Daniel RN - 01/19/2021 9:01 AM [...] give the dose of the SBP is>110). T METAL SMITH Fior Daniel, RN - 01/18/2021 4:13 PM [...] if you have any thoughts or suggestions? T METAL SMITH documented in this encounter Plan of Treatment Upcoming Encounters Date Type Specialty Care Team Description 06/08/2022 Appointment Neurology Parris Luacs MD [address] [facility] [address] [facility] N [address] (Wo rk) documented as of this encounter Visit Diagnoses Not on filedocumented in this encounter Care Teams Agriculture Manager Relationship Specialty Start Date End Date Joanne Higuera, ROLL REPAIRER, PRINTED CIRCUIT BOARD DRAFTER PCP - General Nurse Practitioner 06/18/20 [address] [facility] [place], [place] [id number] documented as of this encounter
--- OUTSIDE RECORDS SUMMARY | 2021-12-18 19:22 | XMS_ITS | Encounter Summary ---
:1955 Author Organization [employer] Address [address] [facility] [place] [address] Care Team Providers Name Role Phone Derek Norton MD Primary Care Provider Reason for Referral Therapies (Routine) - Closed Specialty Diagnoses / Procedures Referred By Contact Refer red To Contact Diagnoses Parkinson's disease (HRC) Parris Lucas MD [address] [facility] [address] [place], [place] [address] Referral ID Status Reason Start Date Expiration Date Visits Requ ested Visits Authorized [id number] Closed 12/19/2019 12/18/2020 1 1 Scheduling Instructions [...] Department Care Team Description 12/19/2019 Office Visit [place] [facility] Parris Lucas MD Parkinson's disease (HRC) (Primary Dx); [address] [facility] Mild cognitive impairment; [address] 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 Joselyn Hernandez RN Increase fludrocortisone 0.1mg to 2 pills in the morning Stand up slowly! For both balance reasons and dizziness reasons See speech pathology locally about swallowing issues Return in 6 months or as needed documented in this encounter Progress Notes Parris Lucas MD - 12/19/2019 1:10 PM CDT Images from the original note were not included. [address] [place] [address] FOLLOWUP EXAMINATION SUBJECTIVE Chief Complaint Patient presents with ??? Follow-up ??? FALL ??? DIZZINESS ??? HALLUCINATIONS improving Current concerns and update: This visit was conducted: in person. The patient was in the clinic and the doctor was at [facility]. The patient-facing part of the [...] (SINEMET) 25-250 MG tablet 1 pill at [id number] 630 Tablet 3 ??? escitalopram oxalate (AKA LEXAPRO) 10 MG tablet Take 20 mg by mouth Daily. ??? midodrine (PROAMATINE) 5 MG tablet TAKE TWO TABLETS BY MOUTH EVERY MORNING AND 1 TABLET AT NOON 270 Tablet 3 ??? Pimavanserin Tartrate (NUPLAZID) 34 MG CAPS Take 34 mg by mouth daily. Lot: [id number], exp: 04/05/2021, [place] 14 Capsule 0 ??? Pimavanserin Tartrate (NUPLAZID) 34 MG CAPS Take 34 mg by mouth daily. Lot: [id number] exp: 04/05/2021 7 Capsule 0 No facility-administered [...] of note to: ??Dr. Derek Norton, [address] [place] [address] ?? 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 [address] [place] [address] documented as of this encounter
--- OUTSIDE RECORDS SUMMARY | 2021-12-18 19:22 | XMS_ITS | Encounter Summary ---
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 [address] [place] [address] FOLLOWUP EXAMINATION SUBJECTIVE Chief Complaint Patient presents with ??? Follow-up Current concerns and update: This visit was conducted: in person. The patient was in the clinic and the doctor was at [facility] The patient-facing part of the visit began [...] is taking sinemet 25/250 1 pill at 7-2-83-1-3-5-7 and a CR at bedtime. She also [...] today and updated on Health Profile in [facility]. Allergies Allergen Reactions ??? Penicillins PN: LW Reaction: Fever ??? Sulfa Antibiotics PN: rash Current Medications: Reviewed today and updated on Health Profile in [place]. 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
--- OUTSIDE RECORDS SUMMARY | 2021-12-18 19:22 | XMS_ITS | Encounter Summary ---
:1955 Author Organization [facility] Address [address] [place] [address] Care Team Providers Name Role Phone Joanne Higuera APRN, FLORES Primary Care Provider [phone] Reason for Visit Reason Comments Other Shoes Encounter Details Date Type Department Care Team Description 09/21/2020 Telephone [facility] Fior Daniel RN Other (Shoes) [address] [place], [place] [address] Social History Tobacco Use [...] Lucas MD [address] [facility] [address] [facility] N [address] (Wo rk) documented as of this encounter Visit Diagnoses Not on filedocumented in this encounter Care Teams Sterile Technician Relationship Specialty Start Date End Date Sipprell, Joanne R, HYDRAULIC PILE HAMMER OPERATOR, DISPENSING OPERATOR PCP - General Nurse Practitioner 06/18/20 [address] [place] [address] documented as of this encounter
--- OUTSIDE RECORDS SUMMARY | 2021-12-18 19:22 | XMS_ITS | Encounter Summary ---
:1955 Author Organization [facility] Address [address] [place] [address] Care Team Providers Name Role Phone Derek Norton MD Primary Care Provider Reason for Referral Therapies (Routine) - Closed Specialty Diagnoses / Procedures Referred By Contact Refer red To Contact Diagnoses Parkinson's disease (HRC) Parris Lucas MD [address] [facility] [address] [place], [place] [address] Referral ID Status Reason Start Date Expiration Date Visits Requ ested Visits Authorized Closed 12/06/2019 12/05/2020 1 1 Scheduling Instructions Your provider has recommended an appoint ment with [facility]. You may call [phone] to schedule yo ur appointment. We suggest you call your health insurance company about your cove rage and benefits for this appointment. Reason for Visit Reason Comments REFERRAL REQUEST Encounter Details Date Type Department Care Team Description 12/06/2019 Telephone [facility] Joselyn Hernandez, REFERRAL REQUEST [address] ruby RN [place], [place] [address] Social History Tobacco Use [...] Received a call from the patients daughter (Monisha). She states the patient is unaware she is calling.The patient has an upcoming appointment on 12/19/2019. [place] recently moved into [place] and has been adjusting well. The patient is falling about once a week when walking with her walker. The daughter has concerns about her memory and would like to know if an OT evaluation would be possible. Left her a message stating we will pass the information along to the provider. Instructed her to send any additionaldetails through [employer]. The upcoming appointment is in person. Dr. Lucas - Please advise. documented in this encounter Plan of Treatment Upcoming Encounters Date Type Specialty Care Team Description 06/08/2022 Appointment Neurology Parris Lucas MD 39[address] [facility] [address] [facility] N [address] (Wo rk) Scheduled Referrals Name Type Priority Associated Diagnoses Order S chedule Occupational Therapy Referral Routine Parkinson's disease (HRC) Ordered: 12/06/2019 documented as of this encounter Visit Diagnoses Diagnosis Parkinson's disease (HRC) - Primary documented in this encounter Care Teams Geophysical Laboratory Director Relationship Specialty Start Date End Date Derek Norton MD PCP - General Family Practice 08/21/18 06/17/20 [facility] [address] [place] [address] documented as of this encounter
--- OUTSIDE RECORDS SUMMARY | 2021-12-18 19:22 | XMS_ITS | Encounter Summary ---
:1955 Author Organization [facility] Address [address] [place] [address] Care Team Providers Name Role Phone Derek Norton MD Primary Care Provider Reason for Visit Reason Comments Medication Questions Encounter Details Date Type Department Care Team Description 08/30/2019 Telephone [facility] Chelsie Toribio facilities plant engineer Questions [address] [place] [phone] Social History Tobacco Use Types Packs/Day [...] 06/08/2022 Appointment Neurology Parris Lucas MD 3930 [facility] [address] [place] [address] (Wo rk) documented as of this encounter Visit Diagnoses Not on filedocumented in this encounter Care Teams Brooch And Bracelet Maker Relationship Specialty Start Date End Date Derek Norton MD PCP - General Family Practice 08/21/18 06/17/20 [facility] [address] [place] [address] documented as of this encounter
--- OUTSIDE RECORDS SUMMARY | 2021-12-18 19:22 | XMS_ITS | Encounter Summary ---
:1955 Author Organization [employer] Address [address] [place] [address] Care Team Providers Name Role Phone Joanne Higuera APRN, CNP Primary Care Provider [phone] Reason for Referral Therapies (Routine) - Closed Specialty Diagnoses / Procedures Referred By Contact Refer red To Contact Diagnoses Parkinson's disease (HRC) Parris Lucas MD [address] [facility] [address] [place], [place] [address] Referral ID Status Reason Start Date Expiration Date Visits Requ ested Visits Authorized [id number] Closed 06/18/2020 06/18/2021 1 1 Scheduling Instructions Your provider has recommended an appoint ment with [facility]. You may call [phone] to schedule your a ppointment. We suggest you call your health insurance company about your coverage an d benefits for this appointment. 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 Two easy ways to stay connected with what is going on at [facility]: 1. If you have not already done so, we encourage you to sign up (for free) to be on our e-mailing list, so that you will receive information about upcoming classes, events, and activities hosted by [facility]! To sign up, simply send an email to [email or web address] indicating that you would like to be included. 2. Follow us on Facebook to learn more about current news and upcoming events. Find us at [facility]! No medication changes Return in 6 months See PT to discuss walkers, Iveth is fine! documented in this encounter Progress Notes Parris Lucas MD - 06/18/2020 3:40 PM CDT Images from the original note were not included. [address] [place] [address] ANNUAL FOLLOW-UP EXAMINATION SUBJECTIVE Chief Complaint Patient presents with ??? Follow-up ??? FALL had some frequent falls, but better now Neurological update and patient concerns This patient was seen in person. The patient and doctor were at [facility]. The visit began at 4:06pm and ended [...] and updated on the Health Profile of [facility]. Current medications Reviewed today and updated on Health Profile in [facility]. Outpatient Medications Prior to Visit Medication [...] assisted living 2. 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 Driving status: not driving [...] months Send copy to: Joanne Higuera CNP, [address] [facility] [address] Parris Lucas MD 4:01 PM 06/18/2020 Note: The 11 items marked with an asterisk (*) are [place] [employer] 2015 quality measures for Parkinson's disease (Factor et al, Neurology 86: 2278- 2283, 2016) documented in this encounter Plan of Treatment Upcoming Encounters Date Type Specialty Care Team Description 06/08/2022 Appointment Neurology Parris Lucas MD 3931 [facility] [address] [place] [id number] (Wo rk) Scheduled Referrals Name Type Priority Associated Diagnoses Order S chedule Physical Therapy Referral Routine Parkinson's disease (HRC ) Ordered: 06/18/2020 documented as of this encounter Visit Diagnoses Diagnosis Parkinson's disease (HRC) - Primary Mild cognitive impairment Mild cognitive impairment, so stated 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
--- OUTSIDE RECORDS SUMMARY | 2021-12-18 19:22 | XMS_ITS | Encounter Summary ---
:1955 Author Organization [employer] Address [address] [place] [address] Care Team Providers Name Role Phone Joanne Higuera APRN, FLORES Primary Care Provider [phone] Reason for Visit Reason Comments Symptoms Encounter Details Date Type Department Care Team Description 01/27/2021 Telephone [facility] Joselyn Hernandez, RN Symptoms [address] [place] [phone] Social History Tobacco Use Types Packs/Day [...] the cause or treatment for the diarrhea. WINDER Joselyn Hernandez, RN - 01/27/2021 1:39 PM [...] beevaluated. Dr. Lucas - Any additional recommendations? WINDER documented in this encounter Plan of Treatment Upcoming Encounters Date Type Specialty Care Team Description 06/08/2022 Appointment Neurology Parris Lucas MD [address] [facility] [address] [facility] [address] (Wo rk) documented as of this encounter Visit Diagnoses Not on filedocumented in this encounter Care Teams Acid Patroller Relationship Specialty Start Date End Date Joanne Higuera, INFORMATION SECURITY SYSTEMS INSTRUCTOR, JACK MACHINE OPERATOR PCP - General Nurse Practitioner 06/18/20 [address] [place], [place] [id number] documented as of this encounter
--- OUTSIDE RECORDS SUMMARY | 2021-12-18 19:22 | XMS_ITS | Encounter Summary ---
:1955 Author Organization [email or web address] Address [address] [place] [address] Care Team Providers Name Role Phone Derek Norton MD Primary Care Provider Reason for Visit Reason Comments Refill Encounter Details Date Type Department Care Team Description 08/10/2019 Refill [facility] Africa Lucas MD Refill [address] 39[address] [facility] [address] [place], [place] [address] [place], [place] [phone] (Wo rk) Social History Tobacco Use Types Packs/Day Years Used Date Smoking Tobacco: Never Sex Assigned at Date Recorded Not on file documented as of this encounter Nursing Notes Darío Simth, RN - 08/12/2019 10:13 AM CDT Renewed [...] 06/08/2022 Appointment Neurology Africa Lucas MD 3939 [facility] [address] [facility] [address] (Wo rk) documented as of this encounter Visit Diagnoses Not on filedocumented in this encounter Care Teams Skills Auditor Relationship Specialty Start Date End Date Derek Norton MD PCP - General Family Practice 08/21/18 06/17/20 [facility] [address] [place] [address] documented as of this encounter
--- OUTSIDE RECORDS SUMMARY | 2021-12-18 19:22 | XMS_ITS | Encounter Summary ---
:1955 Author Organization [facility] Address [address] [place] [address] Care Team Providers Name Role Phone Derek Norton MD Primary Care Provider Reason for Visit Reason Comments EKG Encounter Details Date Type Department Care Team Description 09/12/2019 Telephone [facility] Chelsie Toribio RN EKG [address] [place] [address] Social History Tobacco Use Types Packs/Day [...] CDT [facility] Parris Lucas MD - 09/13/2019 12:51 PM CDT signed Chelsie Toribio RN - 09/13/2019 12:32 PM CDT Spoke with daughter Monisha and told her okay to start medication this evening. Discussed process that we will send over the signed [facility] paperwork, so she maybe getting a call to discuss shipment from speciality pharmacy. Dr. Lucas- Please sign pended rx and we will fax along with [facility] paperwork. Parris Lucas MD - 09/13/2019 [...] 09/12/2019 3:01 PM CDT Received fax from [facility] and clinic with EKG reading. Placed in folder for review. documented in this encounter Plan of Treatment Upcoming Encounters Date Type Specialty Care Team Description 06/08/2022 Appointment Neurology Parris Lucas MD 3931 [facility] [address] [facility] N [address] (Wo rk) documented as of this encounter Visit Diagnoses Not on filedocumented in this encounter Care Teams Fixing Carpenter Relationship Specialty Start Date End Date Derek Norton MD PCP - General Family Practice 08/21/18 06/17/20 [facility] [address] [place] [address] documented as of this encounter
--- OUTSIDE RECORDS SUMMARY | 2021-12-18 19:22 | XMS_ITS | Encounter Summary ---
:1955 Author Organization [facility] Address [address] [place] [address] Care Team Providers Name Role Phone Derek Norton MD Primary Care Provider Reason for Visit Reason Comments RELEASE OF RECORDS Encounter Details Date Type Department Care Team Description 09/25/2019 Telephone [facility] Fior Daniel, RN RELEASE OF RECORDS [address] [place], [place] [address] Social History Tobacco Use [...] MD 3931 [facility] [address] [facility] N [address] (Wo rk) documented as of this encounter Visit Diagnoses Not on filedocumented in this encounter Care Teams Estate Planning Director Relationship Specialty Start Date End Date Derek Norton MD PCP - General Family Practice 08/21/18 06/17/20 [facility] [address] [place] [address] documented as of this encounter
--- OUTSIDE RECORDS SUMMARY | 2021-12-18 19:22 | XMS_ITS | Encounter Summary ---
:1955 Author Organization [employer] Address [address] [place] [address] Care Team Providers Name Role Phone Joanne Higuera APRN, FLORES Primary Care Provider [phone] Reason for Visit Reason Comments Paperwork Encounter Details Date Type Department Care Team Description 08/06/2021 Telephone [facility] Gina Briceno, Paperwork [address] [place] [address] Social History Tobacco Use Types Packs/Day Years Used Date Smoking Tobacco: Never Sex Assigned at Date Recorded Not on file documented as of this encounter Nursing Notes Gina Briceno RN - 08/20/2021 2:15 PM CDT Left message for daughter that certificate is in the mail for her. Made copy and sent to [facility] as well. Gina Briceno RN - 08/06/2021 10:35 AM CDT Patient's daughter calling to request completion of Application for Disability Parking Certificate. Patient is no longer driving. She is hoping to get this completed as it makes it easier when she brings [place] [address] [facility] [address] Lucas, willing to complete this for patient? If so in folder. documented in this encounter Plan of Treatment Upcoming Encounters Date Type Specialty Care Team Description 06/08/2022 Appointment Neurology Parris Lucas MD [address] [facility] [address] [facility] [address] (Wo rk) documented as of this encounter Visit Diagnoses Not on filedocumented in this encounter Care Teams Supervisor Modern Languages Relationship Specialty Start Date End Date Joanne Higuera, CONTRACT MODELER, ALL ROUND BUTCHER PCP - General Nurse Practitioner 06/18/20 [address] [place] [address] documented as of this encounter
--- OUTSIDE RECORDS SUMMARY | 2021-12-18 19:22 | XMS_ITS | Encounter Summary ---
:1955 Author Organization [employer] Address [address] [place] [address] Care Team Providers Name Role Phone Joanne Higuera APRN, FLORES Primary Care Provider [phone] Reason for Visit Reason Comments UPDATE BP Readings Encounter Details Date Type Department Care Team Description 02/08/2021 Telephone [facility] Joselyn Hernandez UPDATE (BP Readings ) [address] [place] [address] Social History Tobacco Use Types Packs/Day Years Used Date Smoking Tobacco: Never Sex Assigned at Date Recorded Not on file documented as of this encounter Nursing Notes Joselyn Hernandez RN - 02/10/2021 3:45 PM CST Called in response and spoke with nurse Abiola. No additional questions or concerns. Closing encounter. E OPERATOR Parris Lucas MD - 02/10/2021 2:25 PM CST yes E OPERATOR Joselyn Hernandez RN - 02/10/2021 2:16 PM CST Abiola from facility called to determine if the additional dose of midodrine should have the same parameters on when to hold. Current dosing parameters are to hold if SBP >130. Dr. Lucas - Please advise E OPERATOR Parris Lucas MD - 02/09/2021 3:37 PM CST Sent, thanks E OPERATOR Joselyn Hernandez RN - 02/09/2021 3:07 PM CST Faxed change to facility. Dr. Lucas - Please update order for pharmacy. E OPERATOR Parris Lucas MD - 02/09/2021 12:27 PM CST I would suggest adding midodrine 5mg at 7am E OPERATOR Joselyn Hernandez RN - 02/08/2021 4:24 PM CST Received list of BP and medication list from facility. Placed in providers folder. Updated Epic medications. Confrimed with facility nurse patient is on 0.2mg florinef at 7am and 5mg midodrine at 11am. Dr. Lucas - Please advise once reviewed BPs. E OPERATOR documented in this encounter Plan of Treatment Upcoming Encounters Date Type Specialty Care Team Description 06/08/2022 Appointment Neurology Parris Lucas MD 3931 [facility] E[address] [facility] N [address] (Wo rk) documented as of this encounter Visit Diagnoses Not on filedocumented in this encounter Care Teams Die Cast Operator Relationship Specialty Start Date End Date Joanen Higuera, APPLICATION PROCESSOR, HEALTH POLICY ANALYST PCP - General Nurse Practitioner 06/18/20 [address] [place], [place] [phone] documented as of this encounter
--- OUTSIDE RECORDS SUMMARY | 2021-12-18 19:22 | XMS_ITS | Encounter Summary ---
:1955 Author Organization [employer] Address [address] [place] [address] Care Team Providers Name Role Phone Joanne Higuera APRN, FLORES Primary Care Provider [phone] Encounter Details Date Type Department Care Team Description 08/31/2020 Notes/Orders [facility] Ranjana Cruz Parki nson's disease (HRC) (Primary Dx); Therapy PT Gait instability [address] [place] [phone] Social History Tobacco Use Types Packs/Day Years [...] Description 06/08/2022 Appointment Neurology Parris Lucas MD 2[address] [facility] [address] [facility] N [address] (Wo rk) documented as of this encounter Visit Diagnoses Diagnosis Parkinson's disease (HRC) - Primary Gait instability Abnormality of gait documented in this encounter Care Teams Free Lance Model Relationship Specialty Start Date End Date Joanne Higuera APRN, STRING LASTER PCP - General Nurse Practitioner 06/18/20 [address] [place], [place] [phone] documented as of this encounter
--- OUTSIDE RECORDS SUMMARY | 2021-12-18 19:22 | XMS_ITS | Encounter Summary ---
:1955 Author Organization [employer] Address [address] [place] [address] Care Team Providers Name Role Phone Derek Norton MD Primary Care Provider Reason for Visit Reason Comments QUESTIONS, GENERAL Encounter Details Date Type Department Care Team Description 09/23/2019 Telephone [facility] Chelsie Toribio, RN QUESTIONS, GENERAL [address] [place], [place] [address] Social History Tobacco Use Types Packs/Day Years Used Date Smoking Tobacco: Never Sex Assigned at Date Recorded Not on file documented as of this encounter Nursing Notes Chelsie Toribio RN - 09/23/2019 2:55 PM CDT Monisha called and LM on nurse line stating she has called [facility] a few times and has not gotten a call back form them. [facility] and [facility] like they have some people [...] Description 06/08/2022 Appointment Neurology Parris Lucas MD 3980 [facility] [address] [facility] [address] (Wo rk) documented as of this encounter Visit Diagnoses Not on filedocumented in this encounter Care Teams Independent Consultant Relationship Specialty Start Date End Date Derek Norton MD PCP - General Family Practice 08/21/18 06/17/20 [email or web address] [address] [place] [address] documented as of this encounter
--- OUTSIDE RECORDS SUMMARY | 2021-12-18 19:22 | XMS_ITS | Encounter Summary ---
:1955 Author Organization [facility] Address [address] [place] [address] Care Team Providers Name Role Phone Derek Norton MD Primary Care Provider Reason for Visit Reason Comments COVID Screening Encounter Details Date Type Department Care Team Description 08/28/2019 Telephone [facility] Parris Lucas MD COVID Screening [address] [place], [place] [address] [address] [facility] N [id number] (Wo rk) Social History Tobacco Use Types [...] 06/08/2022 Appointment Neurology Parris Lucas MD 3931 [facility] [address]500 [facility] N [address] (Wo rk) documented as of this encounter Visit Diagnoses Not on filedocumented in this encounter Care Teams Manager Software Relationship Specialty Start Date End Date Derek Norton MD PCP - General Family Practice 08/21/18 06/17/20 [facility] [address] [place] [address] documented as of this encounter
--- OUTSIDE RECORDS SUMMARY | 2021-12-18 19:22 | XMS_ITS | Encounter Summary ---
:1955 Author Organization [employer] Address [address] [place] [address] Care Team Providers Name Role Phone Derek Norton MD Primary Care Provider Encounter Details Date Type Department Care Team Description 02/06/2020 Notes/Orders [facility] Irina Oreilly, RN [address] [place], [place] [address] Social History Tobacco Use Types Packs/Day Years Used Date Smoking Tobacco: Never Sex Assigned at Date Recorded Not on file documented as of this encounter Progress Notes Irina Oreilly, RN - 02/06/2020 8:[address] Lucas received a fax from [facility] stating that the pt had a fall on AM of 01/30. She lost balance while cleaning and fell onto her buttocks. No injury. Pt had 5 falls in January, and a total of 11 falls since admission to [facility]. Pt non-compliant w/ having walker near her. Nurse at [facility] has provided education but pt continues [...] acknowledgement to the facility. Original sent to [facility] doc. EOTYPE CASTER documented in this encounter Plan of Treatment Upcoming Encounters Date Type Specialty Care Team Description 06/08/2022 Appointment Neurology Parris Lucas MD [address] [facility] [address] [place] [address] [address] (Wo rk) documented as of this encounter Visit Diagnoses Not on filedocumented in this encounter Care Teams Wire Mesh Knitter Relationship Specialty Start Date End Date Derek Norton MD PCP - General Family Practice 08/21/18 06/17/20 [facility] [address] [place] [address] documented as of this encounter
--- OUTSIDE RECORDS SUMMARY | 2021-12-18 19:22 | XMS_ITS | Encounter Summary ---
:1955 Author Organization [employer] Address [address] [place] [address] Care Team Providers Name Role Phone Derek Norton MD Primary Care Provider Reason for Visit Reason Comments Follow-up HALLUCINATIONS Balance/gait Dysfunction balance causing falls Encounter Details Date Type Department Care Team Description 08/29/2019 Office Visit [facility] Parris Lucas MD Parkinson's disease (HRC) (Primary Dx); [facility] [place] 39[address] 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 Joselyn Hernandez RN Stop amantadine Get an EKG at the local clinic--get results sent to me Start Nuplazid 34mg/day for hallucinations Return in 4 months documented in this encounter Progress Notes Parris Lucas MD - 08/29/2019 12:40 PM CDT Images from the original note were not included. [address] [place] [address] ANNUAL FOLLOW-UP EXAMINATION SUBJECTIVE Chief Complaint Patient [...] and sinemet 25/250 every 2 hours at 1-9-17-1-3-5-7. We have not really heard from her [...] and updated on the Health Profile of [facility]. Current medications Reviewed today and updated on Health Profile in [facility]. Outpatient Medications Prior to Visit [...] (SINEMET) 25-250 MG tablet 1 pill at [id number]-7pm 630 Tablet 3 ??? carbidopa-levodopa (SINEMETCR) 50-200 [...] assisted living 2. 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 Driving status: not driving [...] Derek Norton, [address], [place] [address] ?? Parris Lucas MD 1:01 PM 08/29/2019 Note: The 11 items marked with an asterisk (*) are [place] [employer] Neu[employer] 2015 quality measures for Parkinson's disease (Factor et al, Neurology 86: 2278- 2283, 2016) documented in this encounter Plan of Treatment Upcoming Encounters Date Type Specialty Care Team Description 06/08/2022 Appointment Neurology Parris Lucas MD 3931 [facility] [address]500 [facility] [address] (Wo rk) Scheduled Orders Name Type Priority Associated Diagnoses Order S chedule ECG 12 Lead Outpatient EKG Routine Parkinson's diseas e (HRC) Ordered: 08/29/2019 documented as of this encounter Visit Diagnoses Diagnosis Parkinson's disease (HRC) - Primary Mild cognitive impairment Mild cognitive impairment, so stated 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
--- OUTSIDE RECORDS SUMMARY | 2021-12-18 19:23 | XMS_ITS | Encounter Summary ---
:1955 Author Organization [employer] Address [address] [place] [address] Care Team Providers Name Role Phone Derek Norton MD Primary Care Provider Encounter Details Date Type Department Care Team Description 12/17/2018 Notes/Orders [facility] Diana Kinsey PT [address] [place] [address] [place], [place] [address] Social History Tobacco Use Types Packs/Day Years Used Date Smoking Tobacco: Never Sex Assigned at Date Recorded Not on file documented as of this encounter Progress Notes Diana Kinsey PT - 12/17/2018 1:04 PM CDT Encounter Date: 12/17/2018 Pt : 1955 [facility] Physical Therapy Discharge Summary Patient was [...] Episode/Discharging Therapist: Diana Kinsey PT, DPT License #[id number] documented in this encounter Plan of Treatment Upcoming Encounters Date Type Specialty Care Team Description 06/08/2022 Appointment Neurology Parris Lucas MD [address] [facility] [address] [place] [address] [address] (Wo rk) documented as of this encounter Visit Diagnoses Not on filedocumented in this encounter Care Teams Nail Technician Relationship Specialty Start Date End Date Derek Norton MD PCP - General Family Practice 08/21/18 06/17/20 [facility] [address] [place] [address] documented as of this encounter
--- OUTSIDE RECORDS SUMMARY | 2021-12-18 19:23 | XMS_ITS | Encounter Summary ---
:1955 Author Organization [employer] Address [address] [place] [address] Care Team Providers Name Role Phone Derek Norton MD Primary Care Provider Reason for Visit Reason Comments Follow-up SHOT,FLU given Encounter Details Date Type Department Care Team Description 12/20/2018 Office Visit [facility] Parris Lucas, Parkinson's disease (HRC) (P rimary Dx); [address] [place] Encounter for administration of vaccine; Drive 39[address] [facility] Neurogenic orthostatic hypot ension (HRC); [place], [place] J[address] Dyskinesia, drug-induced; [address] [place], [place] Mild cognitive impairment; [phone] [address] Abnormal weight loss Social History Tobacco [...] from the original note were not included. [address] [place] [address] FOLLOWUP EXAMINATION SUBJECTIVE Chief Complaint Patient presents with ??? Follow-up ??? SHOT,FLU given Current concerns and update: This 63 yo pt returns for routine 4 month followup of Stage 3 Parkinson's disease, onset 2006, withmild cognitive impairment and orthostatic hypotension. At the last visit in August, I switched her to sinemet 25/250 at 7-4-85-1-3-5-7 and a CR at bedtime, with one [...] today and updated on Health Profile in [facility]. Allergies Allergen Reactions ??? Penicillins PN: LW Reaction: Fever ??? Sulfa Antibiotics PN: rash Current Medications: Reviewed today and updated on Health Profile in [facility]. Outpatient Medications Prior to [...] (SINEMET) 25-250 MG tablet 1 pill at [id number]-7pm 630 Tablet 3 ??? carbidopa-levodopa (SINEMETCR) 50-200 [...] better! She is thinking of going to [employer] with friends, so we talked about that. [...] to: Dr. Derek Norton, [address] [place] [address] ?? Parris Lucas MD 1:47 PM 12/20/2018 documented in this encounter Plan of Treatment Upcoming Encounters Date Type Specialty Care Team Description 06/08/2022 Appointment Neurology Parris Lucas MD 39[address] [facility] [address]500 [facility] [address] (Wo rk) documented as of this encounter Visit Diagnoses Diagnosis Parkinson's disease (HRC) - Primary Encounter for administration of vaccine Neurogenic orthostatic hypotension (HRC) Dyskinesia, drug-induced Lack of coordination Mild cognitive impairment Mild cognitive impairment, so stated Abnormal weight loss Loss of weight documented in this encounter Care Teams Ios Programmer Relationship Specialty Start Date End Date Derek Norton MD PCP - General Family Practice 08/21/18 06/17/20 [facility] [address] [place] [address] documented as of this encounter
--- OUTSIDE RECORDS SUMMARY | 2021-12-18 19:23 | XMS_ITS | Encounter Summary ---
:1955 Author Organization [facility] Address [address] [place] [address] Care Team Providers Name Role Phone Prakash Pérez MD Primary Care Provider Reason for Referral Therapies (Routine) - Closed Specialty Diagnoses / Procedures Referred By Contact Refer red To Contact Diagnoses Parkinson's disease ([facility]) Parris Lucas MD [address] [phone] Referral ID Status Reason Start Date Expiration Date Visits Requ ested Visits Authorized [id number] Closed 04/06/2018 06/05/2018 1 1 Scheduling Instructions [...] Refer red To Contact Diagnoses Parkinson's disease ([facility]) Parris Lucas MD [address] [facility] [address] [place] [phone] Referral ID Status Reason Start Date Expiration Date Visits Requ ested Visits Authorized [id number] Closed 04/06/2018 06/05/2018 1 1 Scheduling Instructions Your provider has recommended an appoint ment with [facility]. You may call [phone] to schedule yo ur appointment. If you do not schedule an appointment within the next 1 to 3 busin ess days, we will call you to help arrange your appointment. We suggest you call yo ur health insurance company about your coverage and benefits for this appointme nt. UTER FIELD TECHNICIAN Reason for Visit Reason Comments LETTER NEEDED DMV Encounter Details Date Type Department Care Team Description 04/04/2018 Telephone [facility] Chelsie Toribio RN LETTER NEEDED (DM) [address] [place], [place] [address] Social History Tobacco Use Types [...] is needed. Closing encounter at this time. UTER FIELD TECHNICIAN Parris Lucas MD - 04/06/2018 2:09 PM CST Ok thanks UTER FIELD TECHNICIAN Chelsie Toribio RN - 04/06/2018 1:53 PM CST Spoke with Jessica. She states she has not driven over a year and would actually prefer not to drive. She if fine if Dr. Lucas states this in her letter. Jessica will mail [facility] letter to us, her fax machine in not working. FYI. UTER FIELD TECHNICIAN Parris Lucas MD - 04/06/2018 9:00 AM [...] write for both an internal and externalorder.... UTER FIELD TECHNICIAN Chelsie Toribio RN - 04/04/2018 2:04 PM CST Jessica called because she received a letter from the [facility] asking for physician's statement on ability to drive. She will fax over letter to nursing fax. She states he really has not driven for two years and would only need to drive around town. Awaiting fax. UTER FIELD TECHNICIAN documented in this encounter Plan of Treatment Upcoming Encounters Date Type Specialty Care Team Description 06/08/2022 Appointment Neurology Parris Lucas MD 3931 [facility] [address] [place] [address] (Wo rk) Scheduled Referrals Name Type Priority Associated Diagnoses Order S chedule Occupational Therapy Referral Routine Parkinson's disease (HRC) Ordered: 04/06/2018 Occupational Therapy Referral Routine Parkinson's disease (HRC) Ordered: 04/06/2018 documented as of this encounter Visit Diagnoses Diagnosis Parkinson's disease (HRC) - Primary documented in this encounter Care Teams Program Professional Relationship Specialty Start Date End Date Prakash Pérez MD PCP - General 03/17/14 08/20/[address] [place] [address] documented as of this encounter
--- OUTSIDE RECORDS SUMMARY | 2021-12-18 19:23 | XMS_ITS | Encounter Summary ---
:1955 Author Organization [facility] Address [address] [place] [address] Care Team Providers Name Role Phone Prakash Pérez MD Primary Care Provider Reason for Visit Reason Comments Refill Encounter Details Date Type Department Care Team Description 06/02/2015 Refill [facility] Parris Lucas MD Refill [address] 8038 [facility] [address] [place], [place] [address] [place] [address] [phone] (Wo rk) Social History Tobacco Use Types [...] fax to pharmacy once signed. Fax #: [phone] documented in this encounter Plan of Treatment Upcoming Encounters Date Type Specialty Care Team Description 06/08/2022 Appointment Neurology Parris Lucas MD 2150 [facility] [address] [facility] [address] (Wo rk) documented as of this encounter Visit Diagnoses Not on filedocumented in this encounter Care Teams Road Grader Operator Relationship Specialty Start Date End Date Prakash Pérez MD PCP - General 03/17/14 08/20/[address] [place] [address] documented as of this encounter
--- OUTSIDE RECORDS SUMMARY | 2021-12-18 19:23 | XMS_ITS | Encounter Summary ---
:1955 Author Organization [employer] Address [address] [place] [address] Care Team Providers Name Role Phone Prakash Pérez MD Primary Care Provider Reason for Visit Reason Comments Knee Pain or Injury Encounter Details Date Type Department Care Team Description 01/01/2015 Office Visit Carter Dixon MD Primary osteoarthritis of right knee (Pr imary Dx); Orthopedics [address] Luma laniererine bursitis [address] [place] [address] [phone] Social History Tobacco Use Types Packs/Day Years [...] MD 3931 [facility] [address]500 [facility] [address] (Wo rk) documented as of this encounter Visit Diagnoses Diagnosis Primary osteoarthritis of right knee - P rimary Primary localized osteoarthrosis, lower leg Pes anserine bursitis Pes anserinus tendinitis or bursitis documented in this encounter Care Teams Sliver Lapper Relationship Specialty Start Date End Date Prakash Pérez MD PCP - General 03/17/14 08/20/[address] [place] [address] documented as of this encounter
--- OUTSIDE RECORDS SUMMARY | 2021-12-18 19:23 | XMS_ITS | Encounter Summary ---
:1955 Author Organization [employer] Address [address] [place] [address] Care Team Providers Name Role Phone Derek Norton MD Primary Care Provider Reason for Visit Reason Comments MEDICATION THERAPY MANAGEMENT Consult/Transfer Care (Routine) - Closed Specialty Diagnoses / Procedures Referred By Contact Refer red To Contact Diagnoses Parkinson's disease (HRC) Parris Lucas MD [address] [place] [address] [place], [place] [address] Referral ID Status Reason Start Date Expiration Date Visits Requ ested Visits Authorized [id number] Closed 08/21/2018 11/20/2019 1 1 Encounter Details Date Type Department Care Team Description 08/22/2018 [place] [facility] Parkinson's moon iseaswilmer (HRC) (Primary Dx); Medication Managemen t PharmD Mild cognitive impairment; [address] [place] [address] [facility] [address] [place] [address] [phone] Social History Tobacco Use Types Packs/Day Years [...] call the clinic, or contact me via [facility]. Anne Marie Marshall, Pharm.D. Medication Management Pharmacist [facility] [phone] documented in this encounter Progress Notes Anne Marie Marshall PharmD - 08/22/2018 9:30 AM CDT Darlene Drew is a 63 y.o. old female who was referred by provider, Dr. Lucas, for medication review/education. Patient???s main concern today is adherence and timing of medications. Social History: Patient is here with daughter Monisha. Monisha is an correspondence school teacher. Patient's around 3 years ago. Barriers [...] spent with patient: 60 minutes 60 Updated [facility] med list and reviewed medications including indications with patient. Anne Marie Marshall PharmD Medication Management [place] [facility] [place] Follow-up Med [facility] appointment scheduled: yes Added to Care Team: yes Part D: [facility] Letter required: No Completed: Not Applicable Recipient of visit: Patient Medicare CI: no # of DTPs: 3 # of DTPs resolved: 3 Special Populations (HOSDC, TCU, ED/Falls, ESRD, Pillbox): no documented in this encounter Plan of Treatment Upcoming Encounters Date Type Specialty Care Team Description 06/08/2022 Appointment Neurology Parris Lucas MD 6[address] [facility] [address]500 [facility] [address] (Wo rk) Scheduled Referrals Name Type Priority Associated Diagnoses Order S chedule Pharmacy-Medication Referral Routine Parkinson's disease O rdered: 08/21/2018 Therapy Management (HRC) documented as of this encounter Visit Diagnoses Diagnosis Parkinson's disease (HRC) - Primary Mild cognitive impairment Mild cognitive impairment, so stated Polypharmacy Issue of repeat prescriptions documented in this encounter Care Teams Geological Technical Officer Relationship Specialty Start Date End Date Derek Norton MD PCP - General Family Practice 08/21/18 06/17/20 [facility] [address] [place] [address] documented as of this encounter
--- OUTSIDE RECORDS SUMMARY | 2021-12-18 19:23 | XMS_ITS | Encounter Summary ---
:1955 Author Organization [facility] Address [address] [place] [address] Care Team Providers Name Role Phone Prakash Pérez MD Primary Care Provider Reason for Visit Reason Comments Medication Check In increase in citalopram in Ja n Refill Xanax, carb/levo IR and CR, miratazipine, and amantadine Increased Anxiety with panic attacks for the l ast 3-4 weeks Encounter Details Date Type Department Care Team Description 07/05/2016 Office Visit [facility] Parris Lucas MD Parkinson's disease [address] ([facility] ) (Primary Dx) Drive [address] [place] [phone] (Wo rk) Social History Tobacco Use Types [...] Body Mass Index 22.06 01/17/2013 9:57 AM REGULATORY TECHNICIAN documented in this encounter Patient Instructions Patient InstructionsParris Lucas MD - 07/05/2016 10:29 AM CDT Please call the [facility] nurse line for any questions, concerns or updates, . Irina Cobos RN Thank you for enrolling in [facility]. Please follow the instructions below to securely access your online medical record. [facility] allows you to send messages to your doctor, view your test results, renewyour prescriptions, schedule appointments, and more. How Do I Sign Up? 1. In your Internet browser, go to [email or web address] 2. Click on the Enter activation code link under the New User? section. You will see the Activate your account! page. 3. Enter your activation code exactly as it appears below. You will not need to use this code after you???ve completed the sign-up process. If you do not sign up before the expiration date, you must request a new code. Activation Code: [email or web address] Expires: 08/04/2016 10:32 AM 4. Enter your last name and date of (mm/dd/yyyy) as indicated, then click Continue. You will be taken to the Let's set up your account page. 5. Create a username. This will be your [facility] login ID and cannot be changed, so think of one thatis secure and easy to remember. 6. Create a password. You can change your password at any time. 7. Enter your e-mail address. You will receive e-mail notification when new information is availablein [facility]. 8. Select your Security Questions and enter your answers. These can be used at a later time if you forget your password. 9. Check the box to accept the terms and conditions. Click Create your account. You can now view your medical record. Additional Information If you have questions, you can call [phone] to talk to our [employer] staff. Remember, [employer] is NOT to be used for urgent [...] from the original note were not included. [address] [place] [address] ANNUAL FOLLOW-UP EXAMINATION SUBJECTIVE Chief Complaint Patient [...] and updated on the Health Profile of [facility]. Current medications Reviewed today and updated on Health Profile in [facility]. Outpatient Prescriptions Prior to Visit [...] her 2. 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 [...] Plan Send copy to: Dr. Prakash Pérez, [facility], [address] [place] [id number] Parris Lucas MD 10:43 AM 07/05/2016 Note: The 11 items marked with an asterisk (*) are Citizen Of The [place] Academy [employer] Neurology 2015 quality measures for Parkinson's disease (Factor et al, Neurology 86: 2278- 2283, 2016) documented in this encounter Plan of Treatment Upcoming Encounters Date Type Specialty Care Team Description 06/08/2022 Appointment Neurology Parris Lucas MD 3931 [facility] E500 [facility] N [address] (Wo rk) documented as of this encounter Visit Diagnoses Diagnosis Parkinson's disease (HRC) - Primary documented in this encounter Care Teams Demonstrator Knitting Relationship Specialty Start Date End Date Prakash Pérez MD PCP - General 03/17/14 08/20/[address] [place] [address] documented as of this encounter
--- OUTSIDE RECORDS SUMMARY | 2021-12-18 19:23 | XMS_ITS | Encounter Summary ---
:1955 Author Organization [facility] Address [address] [place] [address] Care Team Providers Name Role Phone Prakash Pérez MD Primary Care Provider Reason for Visit Reason Comments Follow-up Midodrine helps with BP/dizz ing. SHOT,FLU given Encounter Details Date Type Department Care Team Description 12/26/2016 Office Visit [facility] Parris Lucas MD Parkinson's disease (HRC) (Primary Dx); [address] [facility] Flu vaccine need; [address] Dyskinesia, drug-induced; [place], [place], [place] Neuro genic orthostatic hypotension (HRC) [phone] (Wo rk) Social History Tobacco Use Types [...] 12/26/2016 2:20 PM CDT Please call the [facility] nurse line for any questions, concerns or updates, . Chelsie Toribio RN Increase midodrine to 2 pills/day, morning and noon Come to the DBS class if you can Return in 4 months documented in this encounter Progress Notes Parris Lucas MD - 12/26/2016 2:20 PM CDT [address] [employer] [place] [address] FOLLOWUP EXAMINATION SUBJECTIVE Chief Complaint Patient presents [...] today and updated on Health Profile in [facility]. Allergies Allergen Reactions ??? Penicillins PN: LW Reaction: Fever ??? Sulfa Antibiotics PN: rash Current Medications: Reviewed today and updated on Health Profile in [facility]. Outpatient Medications Prior to Visit Medication Sig [...] Dr. Prakash Pérez, [facility], [address] [place] [address] Parris Lucas MD 2:49 PM 12/26/2016 documented in this encounter Plan of Treatment Upcoming Encounters Date Type Specialty Care Team Description 06/08/2022 Appointment Neurology Parris Lucas MD [address] [facility] [address] [facility] [address] (Wo rk) documented as of this encounter Visit Diagnoses Diagnosis Parkinson's disease (HRC) - Primary Flu vaccine need Need for prophylactic vaccination and in oculation against influenza Dyskinesia, drug-induced Lack of coordination Neurogenic orthostatic hypotension (HRC) documented in this encounter Care Teams Geological Engineer Relationship Specialty Start Date End Date Prakash Pérez MD PCP - General 03/17/14 08/20/[address] [place] [address] documented as of this encounter
--- OUTSIDE RECORDS SUMMARY | 2021-12-18 19:23 | XMS_ITS | Encounter Summary ---
:1955 Author Organization [facility] Address [address] [place] [address] Care Team Providers Name Role Phone Prakash Pérez MD Primary Care Provider Reason for Visit Reason Comments Refill Encounter Details Date Type Department Care Team Description 03/30/2015 Refill [facility] Parris Lucas MD Refill [address] [facility] [address] [place], [place] [address] [place] [address] [phone] (Wo rk) Social History Tobacco Use Types Packs/Day Years Used Date Smoking Tobacco: Never Assessed Sex Assigned at Date Recorded Not on file documented as of this encounter Nursing Notes Chelsie Toribio RN - 03/31/2015 9:46 AM CST Faxed signed RX to number listed. ERY TECH Irina Cobos RN - 03/30/2015 11:59 AM CST Patient last seen on 12/05/14 - no changes in this medication at this time. Dr. Lucas - please print and sign for order if you agree. Thanks! We will fax to pharmacy once signed. Fax #: [phone] ERY TECH documented in this encounter Plan of Treatment Upcoming Encounters Date Type Specialty Care Team Description 06/08/2022 Appointment Neurology Parris Lucas MD [address] [place] [address] [address] [place] [address] (Wo rk) documented as of this encounter Visit Diagnoses Not on filedocumented in this encounter Care Teams Network Relations Consultant Relationship Specialty Start Date End Date Prakash Pérez MD PCP - General 03/17/14 08/20/[address] [place] [address] documented as of this encounter
--- OUTSIDE RECORDS SUMMARY | 2021-12-18 19:23 | XMS_ITS | Encounter Summary ---
:1955 Author Organization [employer] Address [address] [place] [address] Care Team Providers Name Role Phone Prakash Pérez MD Primary Care Provider Reason for Visit Reason Comments Nausea LIGHTHEADEDNESS Encounter Details Date Type Department Care Team Description 06/05/2017 Telephone [facility] Fior Daniel, Nausea; LIGHTHEADEDNESS [address] ruby RN [place] [phone] Social History Tobacco Use Types Packs/Day [...] Description 06/08/2022 Appointment Neurology Parris Lucas MD [address] [place] [address] [facility] [address] [facility] [address] (Wo rk) documented as of this encounter Visit Diagnoses Not on filedocumented in this encounter Care Teams Street Vendor Relationship Specialty Start Date End Date Prakash Pérez MD PCP - General 03/17/14 08/20/[address] [place] [address] documented as of this encounter
--- OUTSIDE RECORDS SUMMARY | 2021-12-18 19:23 | XMS_ITS | Encounter Summary ---
:1955 Author Organization [facility] Address [address] [place] [address] Care Team Providers Name Role Phone Prakash Pérez MD Primary Care Provider Reason for Visit Reason Comments Follow-up MEDICATION CHECK Encounter Details Date Type Department Care Team Description 06/29/2015 Office Visit [facility] Parris Lucas MD Parkinson's disease [facility] [address] (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 \Chelsie Toribio RN keep on keepin' on! OK to take sinemet and amantadine as you are-- return in 6 months documented in this encounter Progress Notes Parris Lucas MD - 07/03/2015 7:16 AM CDT [facility] ANNUAL Follow-up Examination [facility] [place] [address] [place] [address] SUBJECTIVE: Chief Complaint Patient presents with ??? [...] and updated on the Health Profile of [facility]. Current Medications: Reviewed today and updated on Health Profile in [facility]. 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 Prakash Pérez, [facility], [address] [place] [address] Parris Lucas MD 4:39 PM 06/29/2015 *Note: underlined items are the 10 items included in the 2011 [place] [employer] Parkinson's Disease Practice Parameters for the annual examination of a person with Parkinson's disease documented in this encounter Plan of Treatment Upcoming Encounters Date Type Specialty Care Team Description 06/08/2022 Appointment Neurology Parris Lucas MD 3931 [facility] [address] [facility] N [address] (Wo rk) documented as of this encounter Visit Diagnoses Diagnosis Parkinson's disease (HRC) - Primary documented in this encounter Care Teams Cnc Mill Set Up Operator Relationship Specialty Start Date End Date Prakash Pérez MD PCP - General 03/17/14 08/20/18 [address] [place] [address] documented as of this encounter
--- OUTSIDE RECORDS SUMMARY | 2021-12-18 19:23 | XMS_ITS | Encounter Summary ---
:1955 Author Organization [email or web address] Address [address] [place] [address] Care Team Providers Name Role Phone Prakash Pérez MD Primary Care Provider Encounter Details Date Type Department Care Team Description 01/09/2017 Notes/Orders [facility] The rapy Supriya Menendez, [address] ruby PASSENGER TIRE BUILDER [place], [place] [address] [address] [phone] [place] [address] (Wo rk) Social History Tobacco Use Types Packs/Day Years Used Date Smoking Tobacco: Never Sex Assigned at Date Recorded Not on file documented as of this encounter Progress Notes Supriya Menendez SLP - 01/09/2017 11:42 AM CST [facility] - Discharge Note Client scheduled [...] be obtained from the physician. Supriya Menendez CCC-PASSENGER TIRE BUILDER 11:44 AM 01/09/2017 UCTIVITY ENGINEER documented in this encounter Plan of Treatment Upcoming Encounters Date Type Specialty Care Team Description 06/08/2022 Appointment Neurology Parris Lucas MD [address] [place] [address] [facility] [address] [place] [address] (Wo rk) documented as of this encounter Visit Diagnoses Not on filedocumented in this encounter Care Teams Medical Customer Service Representative Relationship Specialty Start Date End Date Prakash Pérez MD PCP - General 03/17/14 08/20/[address] [place] [address] documented as of this encounter
--- OUTSIDE RECORDS SUMMARY | 2021-12-18 19:23 | XMS_ITS | Encounter Summary ---
:1955 Author Organization [facility] Address [address] [place] [address] Care Team Providers Name Role Phone Prakash Pérez MD Primary Care Provider Reason for Referral Therapies (Routine) - Closed Specialty Diagnoses / Procedures Referred By Contact Refer red To Contact Diagnoses Parkinson's disease ([facility]) Parris Lucas MD 0514 [facility] [address] [place] [phone] Referral ID Status Reason Start Date Expiration Date Visits Requ ested Visits Authorized [id number] Closed 09/15/2016 11/14/2016 1 1 Scheduling Instructions Your provider has recommended an appoint ment with [facility]. You may call [phone] to schedule your a ppointment. If you do not schedule an appointment within the next 1 to 3 busin ess days, we will call you to help arrange your appointment. We suggest you call [employer] about your coverage and benefits for this appointme nt. herapies (Routine) - Closed Specialty Diagnoses / Procedures Referred By Contact Refer red To Contact Diagnoses Parkinson's disease ([facility]) Parris Lucas MD 6507 [facility] [address] [place] [phone] Referral ID Status Reason Start Date Expiration Date Visits Requ ested Visits Authorized [id number] Closed 09/15/2016 11/14/2016 1 1 Scheduling Instructions Your provider has recommended an appoint ment with [facility]. You may call [phone] to schedule your a ppointment. If you do not schedule an appointment within the next 1 to 3 in , we will call you to help arrange your appointment. We suggest you call [employer] about your coverage and benefits for this appointme nt. Reason for Visit Reason Comments Medication Check In wants to discuss regimen of medication. Any other suggestions for pills? Questions Any considerations for rama ng alone with PD? Encounter Details Date Type Department Care Team Description 09/15/2016 Office Visit [facility] Parris Lucas MD Parkinson's disease [facility] [place] (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 Irina Cobos RN Thank you for enrolling in [facility]. Please follow the instructions below to securely access your online medical record. [facility] allows you to send messages to your doctor, view your test results, renewyour prescriptions, schedule appointments, and more. How Do I Sign Up? 1. In your Internet browser, go to [email or web address] 2. Click on the Enter activation code link under the New User? section. You will see the Activate your account! page. 3. Enter your activation code exactly as it appears below. You will not need to use this code after you???ve completed the sign-up process. If you do not sign up before the expiration date, you must request a new code. Activation Code: [email or web address] Expires: 10/15/2016 12:39 PM 4. Enter your last name and date of (mm/dd/yyyy) as indicated, then click Continue. You will be taken to the Let's set up your account page. 5. Create a username. This will be your [facility] login ID and cannot be changed, so think of one thatis secure and easy to remember. 6. Create a password. You can change your password at any time. 7. Enter your e-mail address. You will receive e-mail notification when new information is availablein [facility]. 8. Select your Security Questions and enter your answers. These can be used at a later time if you forget your password. 9. Check the box to accept the terms and conditions. Click Create your account. You can now view your medical record. Additional Information If you have questions, you can call [phone] to talk to our [facility] staff. Remember, [facility] is NOT to be used for urgent needs. For medical emergencies, dial 911. See PT and speech therapy Come to the DBS class No change in medications at this point Return in 3-4 months documented in this encounter Progress Notes Parris Lucas MD - 09/15/2016 12:30 PM CDT [address] [place] [address] FOLLOWUP EXAMINATION SUBJECTIVE Chief Complaint Patient presents [...] of months. She also met with the clinical social work therapist today; her two sons are with her. [...] on Health Profile in [facility]. Allergies Allergen Reactions ??? Penicillins PN: [...] copy of note to: Dr. Prakash Pérez, [facility], [address] [place] [address] Parris Lucas MD 12:52 PM 09/15/2016 documented in this encounter Plan of Treatment Upcoming Encounters Date Type Specialty Care Team Description 06/08/2022 Appointment Neurology Parris Lucas MD [address] [place] [address] [facility] [address] [place] [address] (Wo rk) Scheduled Referrals Name Type Priority Associated Diagnoses Order S chedule Physical Therapy Referral Routine Parkinson's disease (HRC ) Ordered: 09/15/2016 Speech Therapy Referral Routine Parkinson's disease (HRC) Ordered: 09/15/2016 documented as of this encounter Visit Diagnoses Diagnosis Parkinson's disease (HRC) - Primary documented in this encounter Care Teams Stove Refinisher Relationship Specialty Start Date End Date Prakash Pérez MD PCP - General 03/17/14 08/20/[address] [place] [address] documented as of this encounter
--- OUTSIDE RECORDS SUMMARY | 2021-12-18 19:23 | XMS_ITS | Encounter Summary ---
:1955 Author Organization [employer] Address [address] [place] [address] Care Team Providers Name Role Phone Derek [facility] MD Primary Care Provider Reason for Visit Reason Comments MEDICATION THERAPY MANAGEMENT Encounter Details Date Type Department Care Team Description 09/17/2018 Office Visit [place] Anne Marie Marshall, Polypharmacy (Primary Medication Managemen t PharmD Dx) 8401 [facility] 8401 [facility] [address] [place] [address] Social History Tobacco Use Types Packs/Day Years [...] call the clinic, or contact me via [employer]. Anne Marie Marshall, Pharm.D. Medication Management Pharmacist [facility] [phone] documented in this encounter Progress Notes Anne [...] spent with patient 30 30 minutes. Updated [employer] med list and reviewed medications including indications with patient. Anne Marie Marshall PharmD Medication Management [place] [facility] [place] Follow-up Med [facility] appointment scheduled: no Recipient of visit: Patient Medicare CI: yes # of DTPs: 0 # of DTPs resolved: 0 Special Populations (HOSDC, TCU, ED/Falls, ESRD, Pillbox): no documented in this encounter Plan of Treatment Upcoming Encounters Date Type Specialty Care Team Description 06/08/2022 Appointment Neurology Parris Lucas MD [address] [facility] [address] [facility] N [address] (Wo rk) documented as of this encounter Visit Diagnoses Diagnosis Polypharmacy - Primary Issue of repeat prescriptions documented in this encounter Care Teams Director Of Retail Relationship Specialty Start Date End Date Derek [facility] MD PCP - General Family Practice 08/21/18 06/17/20 [facility] [address] [place] [address] documented as of this encounter
--- OUTSIDE RECORDS SUMMARY | 2021-12-18 19:23 | XMS_ITS | Encounter Summary ---
:1955 Author Organization [facility] Address [address] [place] [address] Care Team Providers Name Role Phone Prakash Pérez MD Primary Care Provider Reason for Visit Reason Comments Balance/gait Dysfunction when standing, feel more wob emmanuelle Nausea after eating will feel this way FALL one in past month, some near falls Encounter Details Date Type Department Care Team Description 01/01/2016 Office Visit [place] [facility] Parris Lucas MD Parkinson's disease 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 Gina Briceno, [place] Use your walker in public! Continue sinemet as you are! Return in 6 months Have fun in [place]! documented in this encounter Progress Notes Parris Lucas MD - 01/01/2016 6:23 AM CDT [facility] Follow-up Examination [facility] [place], [place] [address] , SUBJECTIVE: Chief Complaint Patient presents with [...] and updated on Health Profile in [facility]. Allergies Allergen Reactions ??? Penicillins PN: LW Reaction: Fever ??? Sulfa Drugs PN: rash Current Medications: Reviewed today and updated on Health Profile in [facility]. Outpatient Prescriptions Prior to Visit Medication [...] copy of note to: Dr. Prakash Pérez, [facility], [address] [place] [address] Parris Lucas MD 10:25 AM 01/01/2016 documented in this encounter Plan of Treatment Upcoming Encounters Date Type Specialty Care Team Description 06/08/2022 Appointment Neurology Parris Lucas MD [address] [facility] [address] [facility] [address] (Wo rk) documented as of this encounter Visit Diagnoses Diagnosis Parkinson's disease (HRC) - Primary documented in this encounter Care Teams Simulation Developer Relationship Specialty Start Date End Date Prakash Pérez MD PCP - General 03/17/14 08/20/18 [address] [place] [address] documented as of this encounter
--- OUTSIDE RECORDS SUMMARY | 2021-12-18 19:23 | XMS_ITS | Encounter Summary ---
:1955 Author Organization [facility] Address [address] [place] [address] Care Team Providers Name Role Phone Derek [facility] MD Primary Care Provider Reason for Referral Therapies (Routine) - Closed Specialty Diagnoses / Procedures Referred By Contact Refer red To Contact Diagnoses Parkinson's disease ([facility]) Parris Lucas MD [address] [address] Referral ID Status Reason Start Date Expiration Date Visits Requ ested Visits Authorized [id number] Closed 08/21/2018 10/20/2018 1 1 Scheduling Instructions Your provider has recommended an appoint ment with [facility]. You may call [phone] to schedule your a ppointment. If you do not schedule an appointment within the next 1 to 3 busin ess days, we will call you to help arrange your appointment. We suggest you call [employer] [facility] about your coverage and benefits for this appointme nt. Consult/Transfer Care (Routine) - Closed Specialty Diagnoses / Procedures Referred By Contact Refer red To Contact Diagnoses Parkinson's disease ([facility]) Parris Lucas MD [address] [place] [id number] [place], [place] [address] Referral ID Status Reason Start Date Expiration Date Visits Requ ested Visits Authorized [id number] Closed 08/21/2018 11/20/2019 1 1 Scheduling Instructions Your provider has recommended an appoint ment with one of our Medication Management Pharmacists. You may call [phone] t o schedule your appointment. If you [...] Department Care Team Description 08/21/2018 Office Visit [place] [facility] Parris Lucas MD Parkinson's disease (HRC) (Primary Dx); [address] Neur ogenic orthostatic hypotension (HRC); [address] Dyskinesia, drug-induced; [place], [place] Abnor mal weight loss; [phone] Mild cognitive impairment [phone] (Wo rk) Social History Tobacco Use Types [...] 08/21/2018 11:00 AM CDT Please call the [facility] [place] [facility] nurse line for any questions, concerns or updates, . VIOLA Jimenez has a medication management program that helps patients manage their medications confidently. They have patients/families meet one-on-one with pharmacists to discuss current regimen and how to make it easier. Please call Emmie to set up appt [phone] See PT today about different kinds of walkers Change medication schedule: Sinemet 25/250 1 pill at 8-9-32-1-3-5-7 Sinemet CR 50/200 at 9pm Amantadine 1 pill at 7am only No more 25/100 sinemets Call if problems OK to talk with oncology social work Maryse Murphy about accessing community services Return in 4 months documented in this encounter Progress Notes Parris Lucas MD - 08/21/2018 11:00 AM CDT Images from the original note were not included. [address] [place] [address] FOLLOWUP EXAMINATION SUBJECTIVE Chief Complaint Patient presents [...] on Health Profile in [facility]. Allergies Allergen Reactions ??? Penicillins PN: LW Reaction: Fever ??? Sulfa Antibiotics PN: rash Current Medications: Reviewed today and updated on Health Profile in [facility]. Outpatient Medications Prior to Visit Medication Sig [...] 25-100 MG tablet Take 2 tabs at [id number] 1080 Tablet 1 ??? carbidopa-levodopa (SINEMET) 25-250 [...] her care. We talked about having a bill distributor, someone to help set up her pills, [...] moving her to one sinemet 25/250 at 7-4-72-1-3-5-7 and a CR at 9pm, and amantadine [...] [place], [address] , [place] [address] ?? Parris Lucas MD 11:27 AM 08/21/2018 documented in this encounter Plan of Treatment Upcoming Encounters Date Type Specialty Care Team Description 06/08/2022 Appointment Neurology Parris Lucas MD 3931 [facility] [address] [facility] [address] (Wo rk) Scheduled Referrals Name Type Priority [...] stated documented in this encounter Care Teams Sales Consulting Director Relationship Specialty Start Date End Date Derek [facility] MD PCP - General Family Practice 08/21/18 06/17/20 [facility] [address] [facility] [place] [address] documented as of this encounter
--- OUTSIDE RECORDS SUMMARY | 2021-12-18 19:23 | XMS_ITS | Encounter Summary ---
:1955 Author Organization [employer] Address [address] [place] [address] Care Team Providers Name Role Phone Prakash Pérez MD Primary Care Provider Reason for Visit Reason Onset Date Comments Refill 01/21/2016 Xanax 0.25mg Encounter Details Date Type Department Care Team Description 01/20/2016 Refill [place] [facility] Parris Lucas MD Refill (Xanax 0.25mg) [address] [place], [place] [address] [address] [place] [address] (Wo rk) Social History Tobacco Use Types Packs/Day Years Used Date Smoking Tobacco: Never Sex Assigned at Date Recorded Not on file documented as of this encounter Nursing Notes Irina Cobos RN - 01/22/2016 8:19 AM CST Signed Rx faxed to pharmacy. CENTER SPECIALIST Gina Briceno RN - 01/21/2016 7:46 AM CST Pt last seen 01/01/16. No change in medication. Dr Lucas, order pended, if agree please print and sign. CENTER SPECIALIST documented in this encounter Plan of Treatment Upcoming Encounters Date Type Specialty Care Team Description 06/08/2022 Appointment Neurology Parris Lucas MD [address] [place] [facility] [address] [facility] N [address] (Wo rk) documented as of this encounter Visit Diagnoses Not on filedocumented in this encounter Care Teams Ruby On Rails Developer Relationship Specialty Start Date End Date Prakash Pérez MD PCP - General 03/17/14 08/20/18 [address] [place] [address] documented as of this encounter
--- OUTSIDE RECORDS SUMMARY | 2021-12-18 19:23 | XMS_ITS | Encounter Summary ---
:1955 Author Organization [facility] Address [address] [place] [address] Care Team Providers Name Role Phone Prakash Pérez MD Primary Care Provider Reason for Visit Reason Comments Letter Encounter Details Date Type Department Care Team Description 02/02/2015 Telephone [facility] Chelsie Toribio RN Letter [address] [place], [place] [address] Social History Tobacco Use Types Packs/Day Years Used Date Smoking Tobacco: Never Assessed Sex Assigned at Date Recorded Not on file documented as of this encounter Nursing Notes Chelsie Toribio RN - 02/03/2015 8:42 AM CST Mailed letter to home address. Called and LM telling Jessica letter was mailed. Parris Gao MD - 02/03/2015 8:37 AM CST letter written WABLE ENERGY PROJECT MANAGER Chelsie Toribio RN - 02/02/2015 2:17 PM CST Jessica called because she has been picked for jury duty and needs letter from Dr. Lucas to be excused. Letter can be mailed to home address or faxed (number not provided) She needs letter within 7 days. Called and LM asking her to call back. Dr. Lucas- please provide letter. Thanks. WABLE ENERGY PROJECT MANAGER documented in this encounter Miscellaneous Notes Letter - Parris Lucas MD - 02/03/2015 12:00 AM CST Images from the original note were not included. [facility] [address] [employer] [place] [address] Darlene Viki [address] [facility] [address] February 03, 2015 Dear Darlene Drew, This [...] your neurological condition. Sincerely, Parris Lucas MD WABLE ENERGY PROJECT MANAGER documented in this encounter Plan of Treatment Upcoming Encounters Date Type Specialty Care Team Description 06/08/2022 Appointment Neurology Parris Lucas MD [address] [facility] [address] [facility] N [address] (Wo rk) documented as of this encounter Visit Diagnoses Not on filedocumented in this encounter Care Teams Artists' Booking Representative Relationship Specialty Start Date End Date Prakash Pérez MD PCP - General 03/17/14 08/20/18 [address] [place] [address] documented as of this encounter
--- OUTSIDE RECORDS SUMMARY | 2021-12-18 19:23 | XMS_ITS | Encounter Summary ---
:1955 Author Organization [employer] Address [address] [place] [address] Care Team Providers Name Role Phone Prakash Pérez MD Primary Care Provider Reason for Visit Reason Comments UPDATE Encounter Details Date Type Department Care Team Description 03/26/2015 Telephone [facility] Irina Oreilly, RN UPDATE [address] [place], [place] [address] Social History Tobacco Use Types Packs/Day Years Used Date Smoking Tobacco: Never Assessed Sex Assigned at Date Recorded Not on file documented as of this encounter Nursing Notes Parris Lucas MD - 03/26/2015 1:12 PM CST I spoke with her, provided a little support GE TENDER Parris Lucas MD - 03/26/2015 1:04 PM CST ugh. I am sorry to hear about that. Please let us know anything we can do to help-- GE TENDER Irina Cobos, VIOLA - 03/26/2015 9:[address] Lucas - [facility] - patient wanted to let you know [...] the provider was a Janie Sher provider. GE TENDER documented in this encounter Plan of Treatment Upcoming Encounters Date Type Specialty Care Team Description 06/08/2022 Appointment Neurology Parris Lucas MD [address] [facility] [address] [facility] [place] N [address] (Wo rk) documented as of this encounter Visit Diagnoses Not on filedocumented in this encounter Care Teams Public Safety Dispatcher Relationship Specialty Start Date End Date Prakash Pérez MD PCP - General 03/17/14 08/20/[address] [place] [address] documented as of this encounter
--- OUTSIDE RECORDS SUMMARY | 2021-12-18 19:23 | XMS_ITS | Encounter Summary ---
:1955 Author Organization [facility] Address [address] [place] [address] Care Team Providers Name Role Phone Derek Norton MD Primary Care Provider Reason for Visit Reason Comments Balance/gait Dysfunction Therapies (Routine) - Closed Specialty Diagnoses / Procedures Referred By Contact Refer red To Contact Diagnoses Parkinson's disease (HRC) Parris Lucas MD [address] [facility] [address] [place], [place] [address] Referral ID Status Reason Start Date Expiration Date Visits Requ ested Visits Authorized [id number] Closed 08/21/2018 10/20/2018 1 1 Encounter Details Date Type Department Care Team Description 08/22/2018 Initial Consult [place] [facility] Diana Kinsey rkinson's disease (HRC) (Primary Dx); Therapy K, PT Gait instability; [address] [place] [address] [place] [address] [place] [phone] Social History Tobacco Use Types Packs/Day Years Used Date Smoking Tobacco: Never Sex Assigned at Date Recorded Not on file documented as of this encounter Progress Notes Diana Kinsey, PT - 08/22/2018 11:00 AM CDT Visit Date: 08/22/2018 Patient : 1955 Physical Therapy Parkinson Evaluation/Plan of Care [facility] Initial Certification Period: 08/22/2018 to 11/20/18 Referring Provider: Dr. Parris Lucas Visit Diagnosis/ICD: 1. Parkinson's disease (HRC) 2. Gait instability 3. History of falling Precautions: Fall precautions Orthostatic hypotension Onset/Referral Date: 08/22/2018 Reason for Referral: -Outpatient PT. Orders: Evaluate and treat. [facility] Services: Speech therapy. Family Services. [...] but no serious injury. Report of Transfer [place]: Stand from low sofa: Difficult. Bed mobility: [...] alone. Living Situation: Senior apartment. -Living [facility]. -Living environment: Indoor walking areas-hallways of apartment complex. Driving: No. Community Mobility: Independent community ambulation using assistive device. Formal Exercises: Classes available in her building with group racehorse trainer - balance, sit to sand, arm weights. Stationary bike with arms and treadmill; Exercise Frequency: Several times per week. 45 minutes 3x/week - has been doing this for 1 year Equipment/Local Gym available: Classes available in her building with group racehorse trainer - balance, sit to sand, arm [...] 90 day(s). Total Treatment: 60 minutes The clinical case manager is completed by the therapist and the referring clinician's electronic signature certifies medical necessity for the plan above. Diana Kinsey, PT, DPT Liscence #[id number] documented in this encounter Plan of Treatment Upcoming Encounters Date Type Specialty Care Team Description 06/08/2022 Appointment Neurology Parris Lucas MD [address] [place] [address] [place] [address] [address] (Wo rk) Scheduled Referrals Name Type Priority Associated Diagnoses Order S chedule Physical Therapy Referral Routine Parkinson's disease (HRC ) Ordered: 08/21/2018 documented as of this encounter Visit Diagnoses Diagnosis Parkinson's disease (HRC) - Primary Gait instability Abnormality of gait History of falling Personal history of fall documented in this encounter Care Teams Platinum And Palladium Kettle Tender Relationship Specialty Start Date End Date Derek Norton MD PCP - General Family Practice 08/21/18 06/17/20 [facility] [address] [place] [address] documented as of this encounter
--- OUTSIDE RECORDS SUMMARY | 2021-12-18 19:23 | XMS_ITS | Encounter Summary ---
:1955 Author Organization [employer] Address [address] [place] [address] Care Team Providers Name Role Phone Prakash Pérez MD Primary Care Provider Reason for Visit Reason Comments Balance/gait Dysfunction Therapies (Routine) - Closed Specialty Diagnoses / Procedures Referred By Contact Refer red To Contact Diagnoses Parkinson's disease (HRC) Parris Lucas MD [address] [facility] [address] [place], [place] [address] Referral ID Status Reason Start Date Expiration Date Visits Requ ested Visits Authorized [id number] Closed 09/15/2016 11/14/2016 1 1 Encounter Details Date Type Department Care Team Description 09/26/2016 Initial Consult [place] [facility] Breanna Cunningham inson's disease (HRC) (Primary Dx); Therapy RALPH T[place] Gait instability; [address] Prima [address] freezing of gait; Drive Festinating gait; [place], [place] Histo [place] [phone] Social History Tobacco Use Types Packs/Day Years Used Date Smoking Tobacco: Never Sex Assigned at Date Recorded Not on file documented as of this encounter Progress Notes Diann Cunningham PT - 09/26/2016 12:30 PM CDT Visit Date: 09/26/2016 Patient : 1955 Physical Therapy Parkinson Evaluation/Plan of Care [facility] Initial Certification Period: 09/26/2016 to 12/25/16 Referring Provider: Dr. Parris Lucas Visit Diagnosis/ICD: 1. Parkinson's disease (HRC) 2. Gait instability 3. Primary freezing of gait 4. Festinating gait 5. History of falling Precautions: na Onset/Referral Date: 09/15/2016 Reason for Referral: -Outpatient PT. Orders: Evaluate and treat. [facility] Services: Speech therapy. Met with SW on [...] Now living alone since of her . [facility] Driving: Restricted. Only local outings. Daughter drove [...] 7 visits Total Treatment: 60 minutes The manager english is completed by the therapist and the referring clinician's electronic signature certifies medical necessity for the plan above. documented in this encounter Plan of Treatment Upcoming Encounters Date Type Specialty Care Team Description 06/08/2022 Appointment Neurology Parris Lucas MD [address] [facility] [address] [place] [address] (Wo rk) Scheduled Referrals Name Type Priority Associated Diagnoses Order S [facility] Physical Therapy Referral Routine Parkinson's disease (HRC ) Ordered: 09/15/2016 documented as of this encounter Visit Diagnoses Diagnosis Parkinson's disease (HRC) - Primary Gait instability Abnormality of gait Primary freezing of gait Abnormality of gait Festinating gait Abnormality of gait History of falling Personal history of fall documented in this encounter Care Teams Sole Cutter Relationship Specialty Start Date End Date Prakash Pérez MD PCP - General 03/17/14 08/20/[address] [place] [address] documented as of this encounter
--- OUTSIDE RECORDS SUMMARY | 2021-12-18 19:23 | XMS_ITS | Encounter Summary ---
:1955 Author Organization [facility] Address [address] [place] [address] Care Team Providers Name Role Phone Prakash Pérez MD Primary Care Provider Reason for Visit Reason Comments Questions Encounter Details Date Type Department Care Team Description 03/23/2015 Telephone [facility] Irina Oreilly, RN Questions [address] [place], [place] [address] Social History Tobacco Use Types Packs/Day Years Used Date Smoking Tobacco: Never Assessed Sex Assigned at Date Recorded Not on file documented as of this encounter Nursing Notes Irina Cobos RN - 03/23/2015 11:56 AM CST Patient called stating she received a call from one of the nurses here at [facility]. Spoke with patient and informed her that no one from here called and that she probably was listening to an old message. Patient understood and didn't have any questions. ARINE OPERATOR documented in this encounter Plan of Treatment Upcoming Encounters Date Type Specialty Care Team Description 06/08/2022 Appointment Neurology Parris Lucas MD [address] [facility] [address] [facility] N [address] (Wo rk) documented as of this encounter Visit Diagnoses Not on filedocumented in this encounter Care Teams Referral Manager Relationship Specialty Start Date End Date Prakash Pérez MD PCP - General 03/17/14 08/20/[address] [place] [address], [place] [address] documented as of this encounter
--- OUTSIDE RECORDS SUMMARY | 2021-12-18 19:23 | XMS_ITS | Encounter Summary ---
:1955 Author Organization [employer] Address [address] [place] [address] Care Team Providers Name Role Phone Derek Norton MD Primary Care Provider Reason for Visit Reason Comments Balance/gait Dysfunction Encounter Details Date Type Department Care Team Description 08/28/2018 Office Visit [facility] Diana Kinsey nson's disease (HRC) (Primary Dx); Therapy K, PT Gait instability; [address] [place] [address] [address] [place] [address] [place], [place] [phone] Social History Tobacco Use Types Packs/Day Years [...] of narrow width, supporting back rest, and renewable energy consultant weight to improve ease of pushing. They [...] noodles under arms. Procedures: Neuromuscular Re-education (CPT 40862) 30 minutes. Gait Training (CPT 35688) 30 minutes. Total Treatment Time: 60 minutes Diana Kinsey PT, DPT Liscence #[id number] documented in this encounter Plan of Treatment Upcoming Encounters Date Type Specialty Care Team Description 06/08/2022 Appointment Neurology Parris Lucas MD [address] [facility] [address] [facility] [address] (Wo rk) documented as of this encounter Visit Diagnoses Diagnosis Parkinson's disease (HRC) - Primary Gait instability Abnormality of gait History of falling Personal history of fall documented in this encounter Care Teams Engineering Assistant Relationship Specialty Start Date End Date Derek Norton MD PCP - General Family Practice 08/21/18 06/17/20 [facility] [address] [place] [address] documented as of this encounter
--- OUTSIDE RECORDS SUMMARY | 2021-12-18 19:23 | XMS_ITS | Encounter Summary ---
:1955 Author Organization [employer] Address [address] [place] [address] Care Team Providers Name Role Phone Prakash Pérez MD Primary Care Provider Encounter Details Date Type Department Care Team Description 12/06/2016 Notes/Orders [place] [facility] Parris Lucas MD [address] [place], [place] [address] [address] [facility] N [address] (Wo rk) Social History Tobacco Use Types Packs/Day Years Used Date Smoking Tobacco: Never Sex Assigned at Date Recorded Not on file documented as of this encounter Plan of Treatment Upcoming Encounters Date Type Specialty Care Team Description 06/08/2022 Appointment Neurology Parris Lucas MD [address] [facility] [address] [facility] N [id number] (Wo rk) documented as of this encounter Visit Diagnoses Not on filedocumented in this encounter Care Teams Senior Private Client Advisor Relationship Specialty Start Date End Date Prakash Pérez MD PCP - General 03/17/14 08/20/18 [address] [place], [place] [address] documented as of this encounter
--- OUTSIDE RECORDS SUMMARY | 2021-12-18 19:23 | XMS_ITS | Encounter Summary ---
:1955 Author Organization [facility] Address [address] [place] [address] Care Team Providers Name Role Phone Prakash Pérez MD Primary Care Provider Reason for Visit Reason Comments DYSARTHRIA--ED Voice Problem Cognition Therapies (Routine) - Closed Specialty Diagnoses / Procedures Referred By Contact Refer red To Contact Diagnoses Parkinson's disease ([facility]) Parris Lucas MD [address] [facility] [address] [place], [place] [address] Referral ID Status Reason Start Date Expiration Date Visits Requ ested Visits Authorized [id number] Closed 09/15/2016 11/14/2016 1 1 Encounter Details Date Type Department Care Team Description 09/26/2016 Initial Consult Supriya Nick kinson's disease ([facility]) (Primary Dx); Erlinda Medeiros, PATHOLOGY SPECIALIST Dysphonia; [address]ysar thria; Drive Dr 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 ([facility]) [place] [address] [phone] Social History Tobacco Use Types Packs/Day Years Used Date Smoking Tobacco: Never Sex Assigned at Date Recorded Not on file documented as of this encounter Progress Notes Supriya Menendez PATHOLOGY SPECIALIST - 09/26/2016 1:30 PM CDT Encounter Date: 09/26/2016 Patient : 1955 Speech Therapy - Parkinson's Disease Evaluation and Plan of Care [facility] Multidisciplinary Assessment Clinic Outpatient Evaluation Initial [...] daughter who live near her in the [facility], and they will provide transportation [...] Any liquids. Previous Speech Therapy: Received at [facility]. Evaluation in 2008 - no treatmentrecommended at that time. Hand Dominance: Right Hearing Acuity: Within Functional Limits. Glasses: Yes. Education: High school. Employment: Retired/Disabled. 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 Stopped working due to PD in [...] especially in the area of recent recall. PATHOLOGY SPECIALIST provided comp ensatory memory strategies and home cognitive exercise recommendations today. Swallow appears WFL. She lives a distance from the clinic, so PT recommended once [id number] for six sessions. PATHOLOGY SPECIALIST encouraged her to coordinate speech therapy with her PT schedule, though, ideally she would come in more frequently. Hospital - Functional Limitation Reporting- PATHOLOGY SPECIALIST G-Codes Functional Limitation: Voice Voice Current Status (G9171): MANSI NOMS Level 3 (CL) Voice Goal Status (G9172): MANSI NOMS Level 5 (CJ) Recommendations: Individual speech therapy. Department Manager Speech Goal: Client will be able to be understood without repetition 80% of the time in their daily environment as measured by patient report. Department Manager Swallowing Goal: -None Department Manager Memory/Cognition Goal: -Client and/or carepartner will verbalilze [...] to improve cognition. Goals Achieved Today at [facility]: -Client and/or family verbalized comprehension of today's [...] family in agreement with care plan. The photo checker and assembler is completed by the therapist, and the referring clinician's electronic signature certifies medical necessity for the plan above. 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
--- OUTSIDE RECORDS SUMMARY | 2021-12-18 19:23 | XMS_ITS | Encounter Summary ---
:1955 Author Organization [facility] Address [address] [place] [address] Care Team Providers Name Role Phone Prakash Pérez MD Primary Care Provider Reason for Visit Reason Comments Refill midodrine, amantadine, alpra zolam, carb/levo IR DIZZINESS intermittent concern - does not drink much fluid. Nurse education provided. Encounter Details Date Type Department Care Team Description 09/12/2017 Office Visit [facility] Parris Lucas MD Parkinson's disease [facility] [address] ([facility] ) (Primary Dx) [address] [place] [phone] (Wo rk) Social History Tobacco Use Types [...] 09/12/2017 10:30 AM CDT Please call the [facility] nurse line for any questions, concerns or updates, . Irina Cobos, VIOLA Please bring a copy of your health care directive to your next appointment. Thank you! Increase the morning dose of midodrine to 10mg Have fun! Return in 6 months documented in this encounter Progress Notes Parris Lucas MD - 09/12/2017 10:30 AM CDT [address] [place] [address] FOLLOWUP EXAMINATION SUBJECTIVE Chief Complaint Patient presents [...] today and updated on Health Profile in [facility]. Allergies Allergen Reactions ??? Penicillins PN: LW Reaction: Fever ??? Sulfa Antibiotics PN: rash Current Medications: Reviewed today and updated on Health Profile in [facility]. Outpatient Medications Prior to Visit Medication [...] enjoying the freedom and activities. Going to [place] for a month soon Review of Systems: [...] Parkinson's disease is not an indication in [place]. Total time/ Counseling time: 15 min, 10 min discussion Send a copy of note to: Dr. Derek Norton, [address] [place] [address] Parris Lucas MD 10:25 AM 09/12/2017 documented in this encounter Plan of Treatment Upcoming Encounters Date Type Specialty Care Team Description 06/08/2022 Appointment Neurology Parris Lucas MD [address] [facility] [address] [facility] N [address] (Wo rk) documented as of this encounter Visit Diagnoses Diagnosis Parkinson's disease (HRC) - Primary documented in this encounter Care Teams Dry Cell Sealer Relationship Specialty Start Date End Date Prakash Pérez MD PCP - General 03/17/14 08/20/18 [address] [place] [address] documented as of this encounter
--- OUTSIDE RECORDS SUMMARY | 2021-12-18 19:23 | XMS_ITS | Encounter Summary ---
:1955 Author Organization [facility] Address [address] [place] [address] Care Team Providers Name Role Phone Prakash Pérez MD Primary Care Provider Reason for Visit Reason Comments Refill Encounter Details Date Type Department Care Team Description 03/01/2015 Refill [facility] Parris Lucas MD Refill [address] ruby 8721 [facility] [address] [place], [place] [address] [place] [address] [phone] (Wo rk) Social History Tobacco Use Types [...] prescribed before Rytary trial, please sign. Thanks LL MACHINE OPERATOR Chelsie Toribio RN - 03/02/2015 2:14 PM CST Jessica called back. Called her back and LM asking her to let us know how she is taking her medication. LL MACHINE OPERATOR Irina Cobos RN - 03/02/2015 11:21 AM [...] she was taking before refill request submitted. LL MACHINE OPERATOR documented in this encounter Plan of Treatment Upcoming Encounters Date Type Specialty Care Team Description 06/08/2022 Appointment Neurology Parris Lucas MD 3931 [facility] [address] [facility] N [address] (Wo rk) documented as of this encounter Visit Diagnoses Not on filedocumented in this encounter Care Teams Auriculotherapist Relationship Specialty Start Date End Date Prakash Pérez MD PCP - General 03/17/14 08/20/[address] [place] [address] documented as of this encounter
--- OUTSIDE RECORDS SUMMARY | 2021-12-18 19:23 | XMS_ITS | Encounter Summary ---
:1955 Author Organization [employer] Address [address] [place] [address] Care Team Providers Name Role Phone Prakash Pérez MD Primary Care Provider Reason for Visit Reason Comments Refill carb/levo Encounter Details Date Type Department Care Team Description 07/13/2018 Refill [place] [facility] Parris Lucas MD Refill (carb/levo) [address] ruby 55[address] [place], [place] [address] [address] [facility] [address] (Wo rk) Social History Tobacco Use [...] She states she takes the 25/100s at [id number] Please sign pended Rx. Thanks. documented in this encounter Plan of Treatment Upcoming Encounters Date Type Specialty Care Team Description 06/08/2022 Appointment Neurology Parris Lucas MD 3935 [facility] [address] [facility] N [address] (Wo rk) documented as of this encounter Visit Diagnoses Not on filedocumented in this encounter Care Teams Rn Home Care Relationship Specialty Start Date End Date Prakash Pérez MD PCP - General 03/17/14 08/20/[address] [place] [address] documented as of this encounter
--- OUTSIDE RECORDS SUMMARY | 2021-12-18 19:23 | XMS_ITS | Encounter Summary ---
:1955 Author Organization [employer] Address [address] [place] [address] Care Team Providers Name Role Phone Prakash Pérez MD Primary Care Provider Reason for Referral (Routine) - Closed Specialty Diagnoses / Procedures Referred By Contact Refer red To Contact Diagnoses Primary osteoarthritis of right knee Carter Alicea MD Procedures Betamethasone Acet&Sod Phosp (per 3 mg) [address] [place] [address] Referral ID Status Reason Start Date Expiration Date Visits Requ ested Visits Authorized [id number] Closed 12/08/2015 03/08/2017 1 1 Reason for Visit Reason Comments Follow-up Encounter Details Date Type Department Care Team Description 12/08/2015 Office Visit Carter Dixon MD Primary osteoarthritis Orthopedics [address] Xenia of right knee (Primary [address] [place], [place] Dx) [place] [address] [phone] Social History Tobacco Use Types Packs/Day Years [...] MD 3931 [facility] [address] [facility] [address] (Wo rk) documented as of this encounter Visit Diagnoses Diagnosis Primary osteoarthritis of right knee - P rimary Primary localized osteoarthrosis, lower leg documented in this encounter Care Teams Engineering Scientist Relationship Specialty Start Date End Date Prakash Pérez MD PCP - General 03/17/14 08/20/18 [address] [place] [address] documented as of this encounter
--- OUTSIDE RECORDS SUMMARY | 2021-12-18 19:23 | XMS_ITS | Encounter Summary ---
:1955 Author Organization [email or web address] Address [address] [place] [address] Care Team Providers Name Role Phone Prakash Pérez MD Primary Care Provider Reason for Visit Reason Onset Date Comments DIZZINESS 12/06/2016 Encounter Details Date Type Department Care Team Description 12/06/2016 Telephone [facility] Irina Oreilly, RN [facility] [address] [place] [address] Social History Tobacco Use Types Packs/Day Years [...] Lucas MD 3931 [facility] [address] [facility] N [address] (Wo rk) documented as of this encounter Visit Diagnoses Not on filedocumented in this encounter Care Teams Day Care Worker Relationship Specialty Start Date End Date Prakash Pérez MD PCP - General 03/17/14 08/20/[address] [place] [address] documented as of this encounter
--- OUTSIDE RECORDS SUMMARY | 2021-12-18 19:23 | XMS_ITS | Encounter Summary ---
:1955 Author Organization [facility] Address [address] [place] [address] Care Team Providers Name Role Phone Derek Norton MD Primary Care Provider Reason for Visit Reason Comments Refill Encounter Details Date Type Department Care Team Description 09/13/2018 Refill [place] [facility] Africa Lucas MD Refill [address] ruby 3931 [facility] [address] [place], [place] [address] [place], [place] [address] (Wo rk) Social History Tobacco Use Types [...] Description 06/08/2022 Appointment Neurology Africa Lucas MD 1849 [facility] [address] [place] [address] (Wo rk) documented as of this encounter Visit Diagnoses Not on filedocumented in this encounter Care Teams Supervisor Ovens Relationship Specialty Start Date End Date Derek Norton MD PCP - General Family Practice 08/21/18 06/17/20 [facility] [address] [place] [address] documented as of this encounter
--- OUTSIDE RECORDS SUMMARY | 2021-12-18 19:23 | XMS_ITS | Encounter Summary ---
:1955 Author Organization [facility] Address [address] [place] [address] Care Team Providers Name Role Phone Prakash Pérez MD Primary Care Provider Reason for Visit Reason Comments Refill Encounter Details Date Type Department Care Team Description 06/11/2018 Refill [place] [facility] Africa Lucas MD Refill [address] ruby 2101 [facility] [address] [place], [place] [address] [place], [place] [phone] (Wo rk) Social History Tobacco Use Types [...] Description 06/08/2022 Appointment Neurology Africa Lucas MD 6319 [facility] [address] [facility] [address] (Wo rk) documented as of this encounter Visit Diagnoses Not on filedocumented in this encounter Care Teams Differential Specialist Relationship Specialty Start Date End Date Prakash Pérez MD PCP - General 03/17/14 08/20/[address] [place] [address] documented as of this encounter
--- OUTSIDE RECORDS SUMMARY | 2021-12-18 19:23 | XMS_ITS | Encounter Summary ---
:1955 Author Organization [facility] Address [address] [place] [address] Care Team Providers Name Role Phone Prakash Pérez MD Primary Care Provider Encounter Details Date Type Department Care Team Description 10/31/2016 Notes/Orders [place] [facility] Diann Cunningham, [address] ruby PT [place], [place] [address] [address] [phone] [place] [address] (Wo rk) Social History Tobacco Use Types Packs/Day Years Used Date Smoking Tobacco: Never Sex Assigned at Date Recorded Not on file documented as of this encounter Discharge Summaries Diann Cunningham, PT - 10/31/2016 7:57 AM CDT Encounter Date: 10/31/2016 Pt : 1955 [facility] Physical Therapy Discharge Summary Patient [...] 06/08/2022 Appointment Neurology Parris Lucas MD [address] [facility] [address] [place] [address] (Wo rk) documented as of this encounter Visit Diagnoses Not on filedocumented in this encounter Care Teams Supervisor Contact Lens Relationship Specialty Start Date End Date Prakash Pérez MD PCP - General 03/17/14 08/20/[address] [place] [address] documented as of this encounter
--- OUTSIDE RECORDS SUMMARY | 2021-12-18 19:23 | XMS_ITS | Encounter Summary ---
:1955 Author Organization [facility] Address [address] [place] [address] Care Team Providers Name Role Phone Prakash Pérez MD Primary Care Provider Reason for Visit Reason Onset Date Comments Refill 02/22/2018 Encounter Details Date Type Department Care Team Description 02/22/2018 Refill [facility] Fior Daniel, RN Refill [address] [place], [place] [address] Social History Tobacco Use Types Packs/Day Years Used Date Smoking Tobacco: Never Sex Assigned at Date Recorded Not on file documented as of this encounter Nursing Notes Fior Daniel, RN - 02/22/2018 11:34 AM CST Please sign for refills. 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 [address] [facility] N [address] (Wo rk) documented as of this encounter Visit Diagnoses Not on filedocumented in this encounter Care Teams Seismic Prospecting Observer Relationship Specialty Start Date End Date Prakash Pérez MD PCP - General 03/17/14 08/20/18 [address] [place] [address] documented as of this encounter
--- OUTSIDE RECORDS SUMMARY | 2021-12-18 19:23 | XMS_ITS | Encounter Summary ---
:1955 Author Organization [employer] Address [address] [place] [address] Care Team Providers Name Role Phone Prakash [...] Department Care Team Description 03/16/2018 Office Visit [facility] Parris Lucas MD Parkinson's disease (HRC) (Primary Dx); [address] [place] 3931 [facility] ogenic orthostatic hypotension (HRC); [address] [place] [id number] (Wo rk) Social History Tobacco Use Types Packs/Day Years Used Date Smoking Tobacco: Never Sex Assigned at Date Recorded Not on file documented as of this encounter Last Filed Vital Signs Vital Sign Reading Time Taken Comments Blood Pressure 124/70 03/16/2018 1:29 PM SCHOOL BUS MECHANIC Pulse 87 03/16/2018 1:29 PM SCHOOL BUS MECHANIC Temperature - - Respiratory Rate - - Oxygen Saturation - - Inhaled Oxygen Concentration - - Weight 62.1 kg (137 lb) 03/16/2018 1:27 PM SCHOOL BUS MECHANIC Height - - Body Mass Index 20.83 12/26/2016 2:34 PM CDT documented in this encounter Patient Instructions Patient InstructionsParris Lucas MD - 03/16/2018 1:20 PM CST Please call the [facility] nurse line for any questions, concerns or updates, . Irina Cobos RN Don't carry anything with both hands! Increase the 8am and noon sinemet doses from two yellow pills to one sinemet 25/250 blue pill! Call with results Check in with the PCP about nausea after meals Return in July or August OL BUS MECHANIC documented in this encounter Progress Notes Parris Lucas MD - 03/16/2018 1:20 PM CST Images from the original note were not included. [address] [place] [address] ANNUAL FOLLOW-UP EXAMINATION SUBJECTIVE Chief Complaint Patient [...] and updated on the Health Profile of [facility]. Current medications Reviewed today [...] alone 2. 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 Driving status: she is [...] to: Dr. Derek Norton, [address] [place] [address] Parris Lucas MD 1:48 PM 03/16/2018 Note: The 11 items marked with an asterisk (*) are [place] [employer] Neurology 2015 quality measures for Parkinson's disease (Factor et al, Neurology 86: 2278- 2283, 2016) OL BUS MECHANIC documented in this encounter Plan of Treatment Upcoming Encounters Date Type Specialty Care Team Description 06/08/2022 Appointment Neurology Parris Lucas MD 3931 [facility] [address]500 [facility] N [address] (Wo rk) documented as of this encounter Visit Diagnoses Diagnosis Parkinson's disease (HRC) - Primary Neurogenic orthostatic hypotension (HRC) Abnormal weight loss Loss of weight documented in this encounter Care Teams Saddle Maker Relationship Specialty Start Date End Date Prakash Pérez MD PCP - General 03/17/14 08/20/[address] [place] [address] documented as of this encounter
--- OUTSIDE RECORDS SUMMARY | 2021-12-18 19:23 | XMS_ITS | Encounter Summary ---
:1955 Author Organization [employer] Address [address] [place] [address] Care Team Providers Name Role Phone Prakash Pérez MD Primary Care Provider Reason for Visit Reason Comments Follow-up Went to ER at [facility] on May 04 for chest pain. Negative for VT. Still awaiting results o f stress test. Now taking baby aspirin 1 daily Refill carb/levo IR, CR, midodrine, mirtazepine, and alprazolam DIZZINESS ocassionally. Is an ongoing concern. Gave pt handout about OH and gave glass of water Encounter Details Date Type Department Care Team Description 05/23/2017 Office Visit [place] [facility] Parris Lucas MD Parkinson's disease (HRC) (Primary Dx); [address] [facility] ogenic orthostatic hypotension (HRC); [address] Dyskinesia, [place] [phone] (Wo rk) Social History Tobacco Use Types [...] 05/23/2017 11:00 AM CDT Please call the [facility] nurse line for any questions, [...] from the original note were not included. [address] [employer] [place] [address] ANNUAL FOLLOW-UP EXAMINATION SUBJECTIVE Chief Complaint Patient presents with ??? Follow-up Went to ER at [facility] on May 04 for chest pain. Negative for VT. Still awaiting results of stress test. Now [...] and updated on the Health Profile of [facility]. Current medications Reviewed today and updated on Health Profile in [facility]. Outpatient Medications Prior to Visit [...] her 2. 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 Driving status: she does drive [...] she could reduce a couple of her beooj-2-wdrp levodopa doses to 1.5 pills instead of [...] Plan Send copy to: Dr. Prakash Pérez, [facility], [address] [place] [id number] ?? Parris Lucas MD 11:36 AM 05/23/2017 Note: The 11 items marked with an asterisk (*) are [place] [employer] Neurology 2015 quality measures for Parkinson's disease (Factor et al, Neurology 86: 2278- 2283, 2016) documented in this encounter Plan of Treatment Upcoming Encounters Date Type Specialty Care Team Description 06/08/2022 Appointment Neurology Parris Lucas MD 1332 [facility] [place] [place] [address] [facility] [place] N [address] (Wo rk) documented as of this encounter Visit Diagnoses Diagnosis Parkinson's disease (HRC) - Primary Neurogenic orthostatic hypotension (HRC) Dyskinesia, drug-induced Lack of coordination documented in this encounter Care Teams Dynamiter Relationship Specialty Start Date End Date Prakash Pérez MD PCP - General 03/17/14 08/20/18 [address] [place] [address] documented as of this encounter
--- OUTSIDE RECORDS SUMMARY | 2021-12-18 19:23 | XMS_ITS | Encounter Summary ---
:1955 Author Organization [facility] Address [address] [place] [address] Care Team Providers Name Role Phone Prakash Pérez MD Primary Care Provider Reason for Visit Reason Comments Medication Refill Question Encounter Details Date Type Department Care Team Description 01/27/2017 Telephone [place] [facility] Irina Oreilly, Medication Refill [address] ruby RN Question [place], [place] [address] Social History Tobacco Use Types Packs/Day Years Used Date Smoking Tobacco: Never Sex Assigned at Date Recorded Not on file documented as of this encounter Nursing Notes Fior Daniel RN - 01/30/2017 9:17 AM CST Darlene has to change pharmacies to [facility] due to insurance and wondered if she needs all new prescriptions sent. I reviewed prescriptions and she should have refills until July 2017. She can simply call [facility] and ask them to transfer. I will change pharmacy in [facility]. S REPRESENTATIVE PUBLIC UTILITIES Irina Cobos RN - 01/27/2017 9:33 AM CST Pt called this AM and left msg that she's looking for refills but also wanting to switch pharmacies.Some of her Rxs have refills left and others dont, per pt. Pt wondering how to transfer Rxs. Attemped call to pt to discuss but only able to LM. Awaiting return call. S REPRESENTATIVE PUBLIC UTILITIES documented in this encounter Plan of Treatment Upcoming Encounters Date Type Specialty Care Team Description 06/08/2022 Appointment Neurology Parris Lucas MD [address] [place] [facility] [address] [facility] JANIE [facility] [address] (Wo rk) documented as of this encounter Visit Diagnoses Not on filedocumented in this encounter Care Teams Ceramic Tile Mechanic Relationship Specialty Start Date End Date Prakash Pérez MD PCP - General 03/17/14 08/20/[address] [place] [address] documented as of this encounter
--- OUTSIDE RECORDS SUMMARY | 2021-12-18 19:23 | XMS_ITS | Encounter Summary ---
:1955 Author Organization [facility] Address [address] [place] [address] Care Team Providers Name Role Phone Prakash Pérez MD Primary Care Provider Reason for Visit Reason Comments Refill Encounter Details Date Type Department Care Team Description 05/28/2018 Refill [place] [facility] Africa Lucas MD Refill [address] ruby 3931 [facility] [address] [place], [place] [address] [place], [place] [phone] (Wo rk) Social History Tobacco Use Types [...] 06/08/2022 Appointment Neurology Africa Lucas MD 3936 [facility] [address] [facility] [address] (Wo rk) documented as of this encounter Visit Diagnoses Not on filedocumented in this encounter Care Teams Estate Planning Attorney Relationship Specialty Start Date End Date Prakash Pérez MD PCP - General 03/17/14 08/20/18 [address] [place] [address] documented as of this encounter
--- OUTSIDE RECORDS SUMMARY | 2021-12-18 19:24 | XMS_ITS | Encounter Summary ---
:1955 Author Organization [employer] Address [address], [place] [address] Care Team Providers Name Role Phone Prakash Pérez MD Primary Care Provider Reason for Visit Reason Comments ANXIETY WALKING, DIFFICULTY FALL Nausea DIZZINESS Headache Other Encounter Details Date Type Department Care Team Description 03/17/2014 Office Visit [place] [facility] aPrris Lucas MD Parkinson's disease [facility] [place] [facility] [facility] [address] [place] [address] [phone] (Wo rk) Social History Tobacco Use Types Packs/Day Years Used Date Smoking Tobacco: Never Assessed Sex Assigned at Date Recorded Not on file documented as of this encounter Last Filed Vital Signs Vital Sign Reading Time Taken Comments Blood Pressure 100/60 03/17/2014 4:20 PM HEAD BATCHER Pulse 72 03/17/2014 4:20 PM HEAD BATCHER Temperature - - Respiratory Rate - - Oxygen Saturation - - Inhaled Oxygen Concentration - - Weight 73.3 kg (161 lb 11.2 oz) 03/17/2014 4:18 PM HEAD BATCHER Height - - Body Mass Index 24.59 01/17/2013 9:57 AM HEAD BATCHER documented in this encounter Patient Instructions Patient InstructionsParris Lucas MD - 03/17/2014 4:54 PM CST Please call the [facility] nurse line for any questions, concerns or updates, . take prilosec daily for a couple of weeks for nausea and acid reflux return in [place] have fun in [place]! BATCHER documented in this encounter Progress Notes Parris Lucas MD - 03/18/2014 7:19 AM CST [facility] ANNUAL Follow-up Examination [facility] [address] [place] [address] SUBJECTIVE: Chief Complaint Patient presents with ??? Anxiety ??? Difficulty Walking freezing ??? Fall 2-3 falls since December. Whole body will get weak and falls- anxiety makes it worse ??? Nausea Frequent post meals ??? Dizziness ??? Headache Across forehead frequently ??? Other [place]aving to [place] a month next week Update and other concerns: returns for followup of Parkinson's disease. She is leaving for a month in [place] later this week. She has had occasional [...] and updated on the Health Profile of [facility]. Current Medications: Reviewed today and updated on [...] tablets by mouth every 2 hours. Take [id number], total of 16 tabs. 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 Prakash Pérez, [address] [place] [id number] Parris Lucas MD 4:40 PM 03/17/2014 *Note: underlined items are the 10 items included in the 2011 [place] Academy of Neurology Parkinson's Disease Practice Parameters for the annual examination of a person with Parkinson's disease BATCHER documented in this encounter Plan of Treatment Upcoming Encounters Date Type Specialty Care Team Description 06/08/2022 Appointment Neurology Parris Lucas MD 3931 [facility] [address] [facility] N [address] (Wo rk) documented as of this encounter Visit Diagnoses Diagnosis Parkinson's disease (HRC) - Primary documented in this encounter Care Teams Bottle Assembler Relationship Specialty Start Date End Date Prakash Pérez MD PCP - General 03/17/14 08/20/18 [address] [place] [address] documented as of this encounter
--- OUTSIDE RECORDS SUMMARY | 2021-12-18 19:24 | XMS_ITS | Encounter Summary ---
:1955 Author Organization [facility]ending [facility] Address [address] [place] [address] Care Team Providers Name Role Phone Unassigned, Provider Primary Care Provider Unavailable Reason for Visit Reason Comments Refill Encounter Details Date Type Department Care Team Description 10/25/2013 Refill [place] [facility] Ban Hunt, RN Refill [address] [place], [place] [address] Social History Tobacco Use [...] Appointment Neurology Parris Lucas MD 3931 [facility] [address] [facility] N [address] (Wo rk) documented as of this encounter Visit Diagnoses Not on filedocumented in this encounter Care Teams Team Automobile Assembler Relationship Specialty Start Date End Date Unassigned, Provider PCP - General 03/13/00 03/16/14 [address] [place] [address] documented as of this encounter
--- OUTSIDE RECORDS SUMMARY | 2021-12-18 19:24 | XMS_ITS | Encounter Summary ---
:1955 Author Organization [facility] Address [address] [place] [address] Care Team Providers Name Role Phone Prakash Pérez MD Primary Care Provider Reason for Visit Reason Comments Medication Questions Encounter Details Date Type Department Care Team Description 10/24/2014 Telephone [place] [facility] Chelsie Toribio kiln firer Questions [address] [place], [place] [address] Social History Tobacco Use [...] Description 06/08/2022 Appointment Neurology Parris Lucas MD 8679 [facility] [address] [facility] [address] (Wo rk) documented as of this encounter Visit Diagnoses Not on filedocumented in this encounter Care Teams Library Director Relationship Specialty Start Date End Date Prakash Pérez MD PCP - General 03/17/14 08/20/[address] [place] [address] documented as of this encounter
--- OUTSIDE RECORDS SUMMARY | 2021-12-18 19:24 | XMS_ITS | Encounter Summary ---
:1955 Author Organization TV4 EntertainmentMiners' Colfax Medical CenterBAE Systems Address [address] [place] [address] Care Team Providers Name Role Phone Unassigned, Provider Primary Care Provider Unavailable Reason for Referral Specialty Diagnoses / Procedures Referred By Contact Refer red To Contact Parris Lucas MD [address] [facility] [address] [place], [place] [address] Referral ID Status Reason Start Date Expiration Date Visits Requ ested Visits Authorized Reason for Visit Reason Comments Balance/gait Dysfunction Encounter Details Date Type Department Care Team Description 06/03/2013 Initial Consult [place] [facility] Shonda Babcock son's disease (Primary Dx); Therapy Betina Garrido PT Abnormality of gait; [address] nal history of fall [address] [place], [place] [address] [id number] Social History Tobacco Use Types Packs/Day Years Used Date Smoking Tobacco: Never Assessed Sex Assigned at Date Recorded Not on file documented as of this encounter Progress Notes Betina Babcock, PT - 06/03/2013 5:26 PM CDT Visit Date: 06/03/2013 Patient : 1955 Physical Therapy Parkinson Evaluation/Plan of Care [facility] Initial Certification Period: 06/03/2013 to 09/01/13 Referring Provider: Dr. Parris Lucas Visit Diagnosis/ICD: Diagnosis (ICD9) ICD-9-CM 1. Parkinson's disease (HCC) 332.0 2. Abnormality of gait 781.2 3. Personal history of fall V15.88 Precautions: Fall precautions Onset/Referral Date: 05/31/13 Reason for Referral: -Outpatient PT. Orders: Evaluate and treat. [facility] Services: None. Exacerbation Date: 05/04/13 Last [...] a friend. Support System: Lives with primary lead care manager () Living Situation: Private home, all on 1 level. Handicap accessible [facility] -Living Environment: Urban-mostly paved areas to ambulate. [...] with handout provided regarding vendors in the [facility]. Plan to call vendors more local for pt (lives in [place]) to determine most appropriate vendor to assist [...] longer distance ambulation. [facility] and has since [...] vendors closer to pt home town of [place] prior to providing final recommendation; pt in [...] 1 visit. Total Treatment: 60 minutes The advertising agent is completed by the therapist and the referring clinician's electronic signature certifies medical necessity for the plan above. Completed by Betina Brambila PT License #[id number] documented in this encounter Plan of Treatment Upcoming Encounters Date Type Specialty Care Team Description 06/08/2022 Appointment Neurology Parris Lucas MD [address] [facility] [address] [place] N [address] (Wo rk) Scheduled Referrals Name Type Priority Associated Diagnoses Order S [facility] Physical Therapy Referral Routine Parkinson's disease (HRC ) Ordered: 06/03/2013, Expires: 2013 documented as of this encounter Visit Diagnoses Diagnosis Parkinson's disease (HRC) - Primary Abnormality of gait Personal history of fall documented in this encounter Care Teams Technology Intern Relationship Specialty Start Date End Date Unassigned, Provider PCP - General 03/13/00 03/16/[address] [place] [address] documented as of this encounter
--- OUTSIDE RECORDS SUMMARY | 2021-12-18 19:24 | XMS_ITS | Encounter Summary ---
:1955 Author Organization [facility] Address [address] [place] [address] Care Team Providers Name Role Phone Prakash Pérez MD Primary Care Provider Encounter Details Date Type Department Care Team Description 10/24/2014 Notes/Orders Carter Dixon MD Pain in joint, lower Orthopedics [address] [facility] leg, right (Primary [address] [place], [place] Dx) [place] [address] [phone] (Wo rk) Social History Tobacco Use Types Packs/Day Years Used Date Smoking Tobacco: Never Assessed Sex Assigned at Date Recorded Not on file documented as of this encounter Plan of Treatment Upcoming Encounters Date Type Specialty Care Team Description 06/08/2022 Appointment Neurology Parris Lucas MD 39[address] [facility] [address] [facility] N [id number] (Wo rk) documented as of this encounter Visit Diagnoses Diagnosis Pain in joint, lower leg, right - Primar y documented in this encounter Care Teams Community Affairs Manager Relationship Specialty Start Date End Date Prakash Pérez MD PCP - General 03/17/14 08/20/18 [address] [place] [address] documented as of this encounter
--- OUTSIDE RECORDS SUMMARY | 2021-12-18 19:24 | XMS_ITS | Encounter Summary ---
:1955 Author Organization Plex SystemsNor-Lea General HospitalStyle for Hire Address [address] [place] [address] Care Team Providers Name Role Phone Unassigned, Provider Primary Care Provider Unavailable Reason for Visit Reason Comments Refill Encounter Details Date Type Department Care Team Description 12/09/2013 Telephone [place] [facility] Chelsie Toribio, RN Refill [address] [place], [place] [address] Social History Tobacco Use [...] 06/08/2022 Appointment Neurology Parris Lucas MD 39[address] [facility] [address] [facility] N [address] (Wo rk) documented as of this encounter Visit Diagnoses Not on filedocumented in this encounter Care Teams Halftone Operator Relationship Specialty Start Date End Date Unassigned, Provider PCP - General 03/13/00 03/16/14 [address] [place] [address] documented as of this encounter
--- OUTSIDE RECORDS SUMMARY | 2021-12-18 19:24 | XMS_ITS | Encounter Summary ---
:1955 Author Organization [facility] Centerivi[facility] Address [address] [place] [address] Care Team Providers Name Role Phone Unassigned, Provider Primary Care Provider Unavailable Reason for Visit Reason Comments Refill Encounter Details Date Type Department Care Team Description 02/24/2014 Telephone [place] [facility] Ban Hunt, RN Refill [address] [place] [address] [place], [place] [address] Social History Tobacco Use Types Packs/Day Years Used Date Smoking Tobacco: Never Assessed Sex Assigned at Date Recorded Not on file documented as of this encounter Nursing Notes Ban Hunt, RN - 02/24/2014 4:22 PM CST Darlene called and is requesting her carb/levo CR and IR, and amantadine to be 90 day supplies andsent to [facility] in [place]. last visit 12/13/2013. No medication changes. Renewed medication per medication refill protocol. [place] documented in this encounter Plan of Treatment Upcoming Encounters Date Type Specialty Care Team Description 06/08/2022 Appointment Neurology Parris Lucas MD 3931 [facility] [address] [facility] N [address] (Wo rk) documented as of this encounter Visit Diagnoses Not on filedocumented in this encounter Care Teams Deli Department Manager Relationship Specialty Start Date End Date Unassigned, Provider PCP - General 03/13/00 03/16/[address] [place] [address] documented as of this encounter
--- OUTSIDE RECORDS SUMMARY | 2021-12-18 19:24 | XMS_ITS | Encounter Summary ---
:1955 Author Organization [facility] CenterF[facility] Address [address] [place] [address] Care Team Providers Name Role Phone Unassigned, Provider Primary Care Provider Unavailable Reason for Visit Reason Comments Refill Encounter Details Date Type Department Care Team Description 03/07/2014 Telephone [place] [facility] Ban Hunt RN Refill [address] [place], [place] [address] Social History Tobacco Use Types Packs/Day Years Used Date Smoking Tobacco: Never Assessed Sex Assigned at Date Recorded Not on file documented as of this encounter Progress Notes Perfecto Kaur RN - 03/10/2014 2:59 PM ENGINEER PROCESS Addended by: PERFECTO KAUR on: 03/10/2014 02:59 PM Modules accepted: Orders documented in this encounter Nursing Notes Fior Daniel RN - 03/11/2014 9:21 AM CST Faxed to [facility] in [place]. Parris Lucas MD - 03/10/2014 4:24 PM CST prescription should be sitting on your printer to be signed; if you put it in my box, I can probablyswing by Chauncey on my way to work tomorrow and sign it and whatever other papers might have accumulated in the box. Fior Daniel RN - 03/10/2014 4:14 PM CST Patient called again, I told her that we have sent Dr. Lucas a note requesting she call this prescription in to [facility] in [place], explained she is not here at this office. Explained that when people use 2-3 different pharmacies they can get sent sometimes to the wrong one. Asked her to be patient until tomorrow. Please notify us when completed. Perfecto Kapoor RN - 03/10/2014 2:59 PM CST Note, last prescription, written 12/2013 was faxed to [facility]. Needs to be signed and faxed or [facility]. Thanks. Perfecto Kapoor RN - 03/10/2014 2:56 PM CST Darlene calling requesting new xanax prescription sent to [facility] in [place]. New pharmacy changed for orders. Can you please write, print and sign a new prescription for xanax for Darlene and fax [facility]? Let me know if unable. thanks. Perfecto Kapoor RN - 03/10/2014 2:49 PM CST Darlene calling, left message stating [facility] does not have a prescription for xanax, wondeing if we can send it to [facility] [place]. Call to [facility] pharmacy. They have no prescription for xanax on file for Darlene. Ban Park RN - 03/10/2014 11:23 AM CST I spoke with Darlene and she will call [facility] and will call us back if she needs us to write a new rx for the xanax NEER PROCESS Ban Hunt RN - 03/07/2014 1:14 PM CST We received a fax from [facility]'s pharmacy in [place] requesting a refill on alprazolam. I see Dr Lucas gave her a 6 month supply at her last visit 12/13/2013 and it was sent to [facility] in [place]. Icalled her and left a message asking her to have her new pharmacy call [facility] requesting the prescrip tion be transferred. NEER PROCESS documented in this encounter Plan of Treatment Upcoming Encounters Date Type Specialty Care Team Description 06/08/2022 Appointment Neurology Parris Lucas MD 3931 [facility] [address] [facility] [address] (Wo rk) documented as of this encounter Visit Diagnoses Not on filedocumented in this encounter Care Teams Manager Medical Relationship Specialty Start Date End Date Unassigned, Provider PCP - General 03/13/00 03/16/[address] [place] [address] documented as of this encounter
--- OUTSIDE RECORDS SUMMARY | 2021-12-18 19:24 | XMS_ITS | Encounter Summary ---
:1955 Author Organization Premium StoreG[facility] CenterParentingInformer Address [address], [place] [address] Care Team Providers Name Role Phone Prakash Pérez MD Primary Care Provider Reason for Visit Reason Comments WALKING, DIFFICULTY Balance/gait Dysfunction Refill Encounter Details Date Type Department Care Team Description 08/12/2014 Office Visit [facility] Parris Lucas MD Parkinson's disease [facility] [address] TapMyBackPatricia demi [facility] [address] [place] [address] [phone] (Wo rk) Social History Tobacco Use Types [...] Body Mass Index 25.7 01/17/2013 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 start Rytary 150m capsules 4 times a day--at breakfast, lunch, dinner, bedtime OK to take an extra yellow sinemet pill if you need to in between continue amantadine while we try the Rytary return in 3 months PT in [place] documented in this encounter Progress Notes Parris Lucas MD - 08/12/2014 10:02 AM CDT [facility] Follow-up Examination [facility] [address] [place] [phone] , SUBJECTIVE: Chief Complaint Patient presents with ??? Difficulty Walking In november going to do the Big and Loud program ??? Balance/gait Dysfunction fear of falling ??? Medication Refill orders pended Current concerns and update: returns for followup of Parkinson's disease. She is having more freezing of gait, wants to see a local PT in [place] for the [place] [facility] [place]. SHe is not using an assistive device, but will sometimes have abrupt freezing, particularly if she is startled or anxious. Past Medical History Update: No past medical history on file. Adverse Drug Reactions: Reviewed today and updated on Health Profile in [facility]. Allergies Allergen Reactions ??? Penicillins LW Reaction: Fever ??? Sulfa (Sulfonamide Antibiotics) rash Current Medications: Reviewed today and updated on Health Profile in [facility]. Current Outpatient Prescriptions on File Prior to [...] tablets by mouth every 2 hours. Take wb0-1-01-12-2-4-6-8, total of 16 tabs. 1440 tablet 2 [...] wrote for her to see PT in [place] for the [facility] and [facility] program. Total time: 25 min, 20 min discussion Send a copy of note to: Dr. Prakash Pérez, [facility], [address] [place] [address] Parris Lucas MD 9:32 AM 08/12/2014 documented in this encounter Plan of Treatment Upcoming Encounters Date Type Specialty Care Team Description 06/08/2022 Appointment Neurology Parris Lucas MD 3931 [facility] [address] [facility] [place] N [address] (Wo rk) documented as of this encounter Visit Diagnoses Diagnosis Parkinson's disease (HRC) - Primary documented in this encounter Care Teams Snowblower Mechanic Relationship Specialty Start Date End Date Prakash Pérez MD PCP - General 03/17/14 08/20/18 [address] [place] [address] documented as of this encounter
--- OUTSIDE RECORDS SUMMARY | 2021-12-18 19:24 | XMS_ITS | Encounter Summary ---
:1955 Author Organization Outdoor PromotionsMiners' [facility] CenterWantful Address [address] [place] [address] Care Team Providers Name Role Phone Prakash Pérez MD Primary Care Provider Encounter Details Date Type Department Care Team Description 10/24/2014 Imaging [facility] Pain in joint, lower leg, [address] right [place], [place] [phone] Social History Tobacco Use Types Packs/Day Years Used Date Smoking Tobacco: Never Assessed Sex Assigned at Date Recorded Not on file documented as of this encounter Plan of Treatment Upcoming Encounters Date Type Specialty Care Team Description 06/08/2022 Appointment Neurology Parris Lucas MD 3931 [facility] [address] [facility] N [phone] (Wo rk) documented as of this encounter [...] right documented in this encounter Care Teams Marketing Planner Relationship Specialty Start Date End Date Prakash Pérez MD PCP - General 03/17/14 08/20/[address] [place] [address] documented as of this encounter
--- OUTSIDE RECORDS SUMMARY | 2021-12-18 19:24 | XMS_ITS | Encounter Summary ---
:1955 Author Organization Renew[facility]Advanced [facility] Southern [facility] MexicoCon[facility] Address [address] [place] [address] Care Team Providers Name Role Phone Prakash Pérez MD Primary Care Provider Reason for Visit Reason Comments Medication Questions Encounter Details Date Type Department Care Team Description 03/18/2014 Telephone [place] [facility] Chelsie Toribio, coat operator Questions [address] [place] [address] Social History Tobacco Use Types Packs/Day Years Used Date Smoking Tobacco: Never Assessed Sex Assigned at Date Recorded Not on file documented as of this encounter Nursing Notes Chelsie Toribio RN - 03/18/2014 4:36 PM CST Received refill request from [facility] pharmacy for alprazolam 0.25mg. New Rx for this had just been sent to [facility] on 03/10/14. Called Jessica asked her if new Rx was needed? She states their was a mix-up, no medication needed. Will disregard this request. CIATE PROFESSOR OF MANAGEMENT documented in this encounter Plan of Treatment Upcoming Encounters Date Type Specialty Care Team Description 06/08/2022 Appointment Neurology Parris Lucas MD 14[address] [facility] funmi [facility] [address] [place] N [address] (Wo rk) documented as of this encounter Visit Diagnoses Not on filedocumented in this encounter Care Teams Relationship Consultant Relationship Specialty Start Date End Date Prakash Pérez MD PCP - General 03/17/14 08/20/18 [address] [place] [address] documented as of this encounter
--- OUTSIDE RECORDS SUMMARY | 2021-12-18 19:24 | XMS_ITS | Encounter Summary ---
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 Questions What can I do to release stress? Symptoms stress with being home more- recent fdc- makes PD symptoms worse, freezing more Current [...] today and updated on Health Profile in [facility]. Allergies Allergen Reactions ??? Penicillins LW Reaction: Fever ??? Sulfa (Sulfonamide Antibiotics) rash Current Medications: Reviewed today and updated on Health Profile in [facility]. Current Outpatient Prescriptions on File Prior to [...] tablets by mouth every 2 hours. Take eg8-4-46-12-2-4-6-8, total of 16 tabs. 480 tablet 4 [...] note to: Dr. Prakash Pérez, [address] [place] [address] Parris Lucas MD 10:28 AM 12/13/2013 documented in this encounter Plan of Treatment Upcoming Encounters Date Type Specialty Care Team Description 06/08/2022 Appointment Neurology Parris Lucas MD 3979 [facility] [address] [place] [address] N [address] (Wo rk) documented as of this encounter Visit Diagnoses Diagnosis Parkinson's disease (HRC) - Primary documented in this encounter Care Teams Retail Mortgage Banker Relationship Specialty Start Date End Date Unassigned, Provider PCP - General 03/13/00 03/16/[address] [place] [address] documented as of this encounter
--- OUTSIDE RECORDS SUMMARY | 2021-12-18 19:24 | XMS_ITS | Encounter Summary ---
:1955 Author Organization [employer] Address [address] [place] [address] Care Team Providers Name Role Phone Prakash Pérez MD Primary Care Provider Reason for Visit Reason Comments Prior Authorization Request Encounter Details Date Type Department Care Team Description 09/02/2014 Telephone [place] [facility] Chelsie Lopez, Prior Authorization [address] [place], [place] [phone] Social History Tobacco Use Types Packs/Day Years [...] 1:24 PM CDT Faxed completed PA to [facility]. Will await response. Chelsie Lopez RN - 09/02/2014 12:51 PM CDT Received fax from [employer] stating PA was needed for Rytary 36.25/145mg. Called insurance (PH: [phone], pt ID: [id number]) and they will fax over PA. documented in this encounter Plan of Treatment Upcoming Encounters Date Type Specialty Care Team Description 06/08/2022 Appointment Neurology Parris Lucas MD 3931 [facility] [address] [facility] N [address] (Wo rk) documented as of this encounter Visit Diagnoses Not on filedocumented in this encounter Care Teams Dietary Supervisor Relationship Specialty Start Date End Date Prakash Pérez MD PCP - General 03/17/14 08/20/[address] [place] [address] documented as of this encounter
--- OUTSIDE RECORDS SUMMARY | 2021-12-18 19:24 | XMS_ITS | Encounter Summary ---
:1955 Author Organization [employer] Address [address] [place] [address] Care Team Providers Name Role Phone Unassigned, Provider Primary Care Provider Unavailable Encounter Details Date Type Department Care Team Description 06/04/2013 Notes/Orders [place] [facility] Betina Babcock, [address] ruby PT [place], [place] [address] [address] [place] [phone] [place] N [phone] (Wo rk) Social History Tobacco Use Types Packs/Day Years Used Date Smoking Tobacco: Never Assessed Sex Assigned at Date Recorded Not on file documented as of this encounter Progress Notes Betina Babcock, PT - 06/04/2013 9:35 AM CDT Phone call to pt on 06/04 regarding pursuit of 4WW/transport chair device: Education provided regarding vendor near [place] who participates in Medicare competitive bid program. [facility] [address] [place] [address] phone: fax: Spoke with vendor over the [...] Pt confirmed understanding. Necessary documentation faxed to [place] attn: Carlee on 06/04/13. Therapist instructed patient to call with questions or concerns. Completed by Betina Brambila PT License #[id number] documented in this encounter Plan of Treatment Upcoming Encounters Date Type Specialty Care Team Description 06/08/2022 Appointment Neurology Parris Lucas MD [address] [facility] [address] [facility] N [address] (Wo rk) documented as of this encounter Visit Diagnoses Not on filedocumented in this encounter Care Teams Application Support Analyst Relationship Specialty Start Date End Date Unassigned, Provider PCP - General 03/13/00 03/16/[address] [place] [address] documented as of this encounter
--- OUTSIDE RECORDS SUMMARY | 2021-12-18 19:24 | XMS_ITS | Encounter Summary ---
:1955 Author Organization [employer] Address [address] [place] [address] Care Team Providers Name Role Phone Prakash Pérez MD Primary Care Provider Reason for Visit Reason Comments Refill Encounter Details Date Type Department Care Team Description 08/29/2014 Refill [place] [facility] Ban Hunt, RN Refill [address] [place] [address] Social History Tobacco Use Types Packs/Day Years [...] Description 06/08/2022 Appointment Neurology Parris Lucas MD [address] [facility] [address] [facility] [address] (Wo rk) documented as of this encounter Visit Diagnoses Not on filedocumented in this encounter Care Teams Insulation Machine Operator Relationship Specialty Start Date End Date Prakash Pérez MD PCP - General 03/17/14 08/20/[address] [place] [address] documented as of this encounter
--- OUTSIDE RECORDS SUMMARY | 2021-12-18 19:24 | XMS_ITS | Encounter Summary ---
:1955 Author Organization [employer] Address [address] [place] [address] Care Team Providers Name Role Phone Prakash Préez MD Primary Care Provider Reason for Visit Reason Comments Knee Pain or Injury Encounter Details Date Type Department Care Team Description 10/24/2014 Surgical Consult Carter Dixon, Primary osteoarthritis Orthopedics MD of right knee (Primary [address]) [place] [address] [phone] Social History Tobacco Use Types Packs/Day Years [...] Family History,and Review of Systems: Reviewed in [facility] and on today's patient health history intake form, confirmedwith the patient, and then submitted to [facility]. Physical Exam: Vitals: per [facility] and reviewed by me today General: [...] [facility] [address] [place] [place] N [address] (Wo rk) documented as of this encounter Visit Diagnoses Diagnosis Primary osteoarthritis of right knee - P rimary Primary localized osteoarthrosis, lower leg documented in this encounter Care Teams Physical Therapist Clinic Director Relationship Specialty Start Date End Date Prakash Pérez MD PCP - General 03/17/14 08/20/[address] [place] [address] documented as of this encounter
--- OUTSIDE RECORDS SUMMARY | 2021-12-18 19:24 | XMS_ITS | Encounter Summary ---
:1955 Author Organization [facility] Address [address] [place] [address] Care Team Providers Name Role Phone Prakash Pérez MD Primary Care Provider Encounter Details Date Type Department Care Team Description 10/24/2014 Imaging [facility] Pain in joint, lower leg, [address] right [place], [place] [address] Social History Tobacco Use Types Packs/Day Years Used Date Smoking Tobacco: Never Assessed Sex Assigned at Date Recorded Not on file documented as of this encounter Plan of Treatment Upcoming Encounters Date Type Specialty Care Team Description 06/08/2022 Appointment Neurology Parris Lucas MD 3931 [facility] [address] [facility] N [id number] (Wo rk) documented as of this encounter [...] right documented in this encounter Care Teams Laydown Machine Operator Relationship Specialty Start Date End Date Prakash Pérez MD PCP - General 03/17/14 08/20/[address] [place] [address] documented as of this encounter
--- OUTSIDE RECORDS SUMMARY | 2021-12-18 19:24 | XMS_ITS | Encounter Summary ---
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 OK to take up to 18 sinemet pills/day, 9 doses if you need to. return in July documented in this encounter Progress Notes Parris Lucas MD - 12/05/2014 11:50 AM CDT [facility] Follow-up Examination [facility] [place] [address] [employer] [place], [place] [phone] , SUBJECTIVE: Chief Complaint Patient presents with [...] in one position. SHe is going to [facility] for this. She tried Rytary, but it was way too expensive, so she went back to sinemet Past Medical History Update: No past medical history on file. Adverse Drug Reactions: Reviewed today and updated on Health Profile in [facility]. Allergies Allergen Reactions ??? Penicillins LW Reaction: Fever ??? Sulfa (Sulfonamide Antibiotics) rash Current Medications: Reviewed today and updated on Health Profile in [facility]. Current Outpatient Prescriptions on File Prior to [...] is involved in a support group in [facility] that now has 16 members. Her home life is stable, and she has done some travel over the summer and will travel a little over the winter as well, short trips. SO all in all, I think things are OK. Return in 6 months. Total time: 25 min, 20 min discussion Send a copy of note to: Dr. Prakash Pérez, [facility], [address] [place] [address] Parris Lucas MD 10:10 AM 12/05/2014 documented in this encounter Plan of Treatment Upcoming Encounters Date Type Specialty Care Team Description 06/08/2022 Appointment Neurology Parris Lucas MD 3931 [facility] [address] [facility] [address] (Wo rk) documented as of this encounter Visit Diagnoses Diagnosis Parkinson's disease (HRC) - Primary Flu vaccine need Need for prophylactic vaccination and in oculation against influenza documented in this encounter Care Teams Compliance Engineer Products Relationship Specialty Start Date End Date Prakash Pérez MD PCP - General 03/17/14 08/20/[address] [place] [address] documented as of this encounter
--- OUTSIDE RECORDS SUMMARY | 2021-12-18 19:25 | XMS_ITS | Encounter Summary ---
:1955 Author Organization [facility] Address [address] [place] [address] Care Team Providers Name Role Phone Unassigned, Provider Primary Care Provider Unavailable Reason for Visit Reason Comments UPDATE Encounter Details Date Type Department Care Team Description 08/02/2012 Telephone [facility] Daniela Prakash, RN UPDATE [address] [place], [place] [address] Social History Tobacco Use [...] Appointment Neurology Parris Lucas MD 3931 [facility] [address] [facility] 004386 (Wo rk) documented as of this encounter Visit Diagnoses Not on filedocumented in this encounter Care Teams Supervisor Filtration Relationship Specialty Start Date End Date Unassigned, Provider PCP - General 03/13/00 03/16/[address] [place] [address] documented as of this encounter
--- OUTSIDE RECORDS SUMMARY | 2021-12-18 19:25 | XMS_ITS | Encounter Summary ---
:1955 Author Organization [facility] Address [address], [place] [address] Care Team Providers Name Role Phone Unassigned, Provider Primary Care Provider Unavailable Reason for Visit Reason Comments Follow-up Encounter Details Date Type Department Care Team Description 06/09/2011 Office Visit [facility] Antonio Dennis, Parkinson's disease [address] [place] ([facility]) (Primary Dx) Drive [address] [place], [place] [address] [address] [place], [place] [phone] (Wo rk) Social History Tobacco Use [...] 1223 Note Time: 06/09/11 171 Status: Signed Metal Hanging Supervisor: Antonio Dennis MD (Physician) NAME: DARLENE DREW MR#: [id number] CSN: [id number] AUTHENTICATING CLINICIAN: Antonio Dennis MD CONFIRM #: [id number] LOC: 23995 CLINIC PROGRESS NOTE DATE OF VISIT: 06/09/2011 : 1955 HISTORY OF PRESENT ILLNESS: Darlene Drew is a 55-year-old woman who is being evaluated today for possible inclusion into the Preladenant study for use with subjects with sarnmgxs-rn-nkbbvq Parkinson's disease. She is followed by Dr. Shayy garcia at [facility] [place]. She has a history of Parkinson's disease [...] B6, vitamin B12 one tablet daily. 6. Lueders-3 fatty acids/fish oil. 7. Polyethylene glycol 17 [...] for further recommendations. QUOCK:MANUEL C: CONFIRM #: [id number] documented in this encounter Plan of Treatment Upcoming Encounters Date Type Specialty Care Team Description 06/08/2022 Appointment Neurology Parris Lucas MD 1663 [facility] [address] [facility] [address] (Wo rk) documented as of this encounter Visit Diagnoses Diagnosis Parkinson's disease (HRC) - Primary documented in this encounter Care Teams Flame Brazing Machine Operator Relationship Specialty Start Date End Date Unassigned, Provider PCP - General 03/13/00 03/16/[address] [place] [address] documented as of this encounter
--- OUTSIDE RECORDS SUMMARY | 2021-12-18 19:25 | XMS_ITS | Encounter Summary ---
:1955 Author Organization [facility] Address [address] [place] [address] Care Team Providers Name Role Phone Unassigned, Provider Primary Care Provider Unavailable Reason for Visit Reason Comments Questions Encounter Details Date Type Department Care Team Description 04/21/2011 Telephone [facility] Fior Daniel, RN Questions [address] [place], [place] [address] Social History Tobacco Use Types Packs/Day Years Used Date Smoking Tobacco: Never Assessed Sex Assigned at Date Recorded Not on file documented as of this encounter Nursing Notes Parris Lucas MD - 04/21/2011 3:28 PM CST thanks ING PROFESSOR Fior Daniel, RN - 04/21/2011 1:01 PM CST Darlene called, saw her primary doctor, has an appointment on Monday with a hvac sales representative. She is curious if the low blood [...] Description 06/08/2022 Appointment Neurology Parris Lucas MD [address] [facility] [address] [place] [address] [address] (Wo rk) documented as of this encounter Visit Diagnoses Not on filedocumented in this encounter Care Teams Manager Residential Relationship Specialty Start Date End Date Unassigned, Provider PCP - General 03/13/00 03/16/[address] [place] [address] documented as of this encounter
--- OUTSIDE RECORDS SUMMARY | 2021-12-18 19:25 | XMS_ITS | Encounter Summary ---
:1955 Author Organization [facility] Address [address] [place] [address] Care Team Providers Name Role Phone Unassigned, Provider Primary Care Provider Unavailable Reason for Referral Specialty Diagnoses / Procedures Referred By Contact Refer red To Contact Parris Lucas MD [address] [facility] te [address] [place], [place] [address] Referral ID Status Reason Start Date Expiration Date Visits Requ ested Visits Authorized CH SHOVEL OPERATOR Reason for Visit Reason Comments Balance/gait Dysfunction Encounter Details Date Type Department Care Team Description 04/19/2011 Initial Consult [facility] Gabriela Briggs rkinson's disease (HRC) (Primary Dx); Therapy L, PT Abnormality of gait; [address] [place] [address] [place] [facility] istory of fall; [facility] Knee pain, bilateral [place], [place] [phone] Social History Tobacco Use Types Packs/Day [...] Device: none Support System: Lives with primary critical care rn. Living Situation: Private home, more than 1 level. -Access to residence: Stairs to enter. -Living location: [place]. -Living Environment: Urban-mostly paved areas to [...] motion. TREATMENT TODAY -Physical Therapy Evaluation (CPT 17131) -Gait training (CPT 75348) - 15 minutes: instructed in gait compensatory strategies for freezing andpropulsion. Instructed in strategies to improve foot clearance and stability, with emphasis on upright posture and wider base of support prior to initiating gait, wider increased step length with more d eliberate heel strike to encourage full knee extension (reduce stress on knees) and prevent propulsion. -Therapeutic activities (CPT 67639)- 15 minutes: Instructed in strategies to manage postural hypotension, worked on control and technique with sit-stand. Instructed in strategies to aid in turns/direction changes -Therapeutic exercise (CPT 75329) - 10 minutes: instructed in supine LE/trunk [...] other medical appointments today. Friend stayed in [place]. Recommend recheck in 1 month. Plan for [...] minutes. Electronically signed by: Gabriela Mcbride PT, [facility], 2932, 04/20/2011 The human resources hr representative is completed by the therapist and the physician electronic signature certifies medical necessity for the plan above. *SH~REHAB~PTPARKEVA~ Shorthand Note completed on: 04/20/2011 8:36 AM documented in this encounter Plan of Treatment Upcoming Encounters Date Type Specialty Care Team Description 06/08/2022 Appointment Neurology Parris Lucas MD 3931 [facility] [address] [facility] [address] (Wo rk) Scheduled Referrals Name Type Priority Associated Diagnoses [facility] Referral Routine Parkinson's disease (HRC ) Ordered: 04/19/2011 documented as of this encounter Visit Diagnoses Diagnosis Parkinson's disease (HRC) - Primary Abnormality of gait Personal history of fall Knee pain, bilateral Pain in joint, lower leg documented in this encounter Care Teams Switch Technician Relationship Specialty Start Date End Date Unassigned, Provider PCP - General 03/13/00 03/16/14 640 [place] [address] documented as of this encounter
--- OUTSIDE RECORDS SUMMARY | 2021-12-18 19:25 | XMS_ITS | Encounter Summary ---
:1955 Author Organization [facility] Address [address] [place] [address] Care Team Providers Name Role Phone Unassigned, Provider Primary Care Provider Unavailable Reason for Visit Reason Comments Prior Authorization Request Encounter Details Date Type Department Care Team Description 05/15/2013 Telephone [facility] Chelsie Toribio, Prior Authorization [address] [place] [address] Social History Tobacco Use Types Packs/Day Years Used Date Smoking Tobacco: Never Assessed Sex Assigned at Date Recorded Not on file documented as of this encounter Nursing Notes Daniela Prakash RN - 05/15/2013 4:22 PM CDT patient states she gets her Alprazolam at [facility] pharmacy in [place], [place] Daniela Prakash RN - 05/15/2013 4:22 PM CDT Called pharmacist with the numbers suggested by [employer]. Pharmacist states the drug went through her [...] is not on formulary, transferred me to [facility]. Piper Installer there stated that if we give the pharmacy the isadorawnew numbers drug will have $1.00 co-pay. ID# [id number] PCN: [id number] BIN: [id number] no group number needed. Called pharmacy listed, [...] Description 06/08/2022 Appointment Neurology Parris Lucas MD 5899 [facility] [address] [facility] [address] (Wo rk) documented as of this encounter Visit Diagnoses Not on filedocumented in this encounter Care Teams Unloader Operator Relationship Specialty Start Date End Date Unassigned, Provider PCP - General 03/13/00 03/16/[address] [place] [address] documented as of this encounter
--- OUTSIDE RECORDS SUMMARY | 2021-12-18 19:25 | XMS_ITS | Encounter Summary ---
:1955 Author Organization [facility] Address [address] [place] [address] Care Team Providers Name Role Phone Unassigned, Provider Primary Care Provider Unavailable Reason for Visit Reason Comments UPDATE Encounter Details Date Type Department Care Team Description 02/21/2012 Telephone [facility] Chelsie Toribio, RN UPDATE [address] [place], [place] [address] Social History Tobacco Use Types Packs/Day Years Used Date Smoking Tobacco: Never Assessed Sex Assigned at Date Recorded Not on file documented as of this encounter Nursing Notes Parris Lucas MD - 02/22/2012 6:39 AM CST excellent, thanks MANAGER Chelsie Toribio, RN - 02/21/2012 4:01 PM [...] 06/08/2022 Appointment Neurology Parris Lucas MD 3931 [facility] [address] [facility] [phone] (Wo rk) documented as of this encounter Visit Diagnoses Not on filedocumented in this encounter Care Teams Composition Roofer Relationship Specialty Start Date End Date Unassigned, Provider PCP - General 03/13/00 03/16/14 640 [place] [address] documented as of this encounter
--- OUTSIDE RECORDS SUMMARY | 2021-12-18 19:25 | XMS_ITS | Encounter Summary ---
:1955 Author Organization [facility] Address [address] [place] [address] Care Team Providers Name Role Phone Unassigned, Provider Primary Care Provider Unavailable Reason for Visit Reason Comments Refill Encounter Details Date Type Department Care Team Description 10/25/2012 Refill [facility] 3931 Krystal Lucas MD Refill Neurology 3931 [facility] [address] [place] [address] [place], [place] [address] [phone] Social History Tobacco Use Types Packs/Day Years [...] MD 3931 [facility] [address] [facility] [id number] (Wo rk) documented as of this encounter Visit Diagnoses Not on filedocumented in this encounter Care Teams Multiple Punch Press Operator Relationship Specialty Start Date End Date Unassigned, Provider PCP - General 03/13/00 03/16/[address] [place] [address] documented as of this encounter
--- OUTSIDE RECORDS SUMMARY | 2021-12-18 19:25 | XMS_ITS | Encounter Summary ---
:1955 Author Organization [facility] Address [address] [place] [address] Care Team Providers Name Role Phone Unassigned, Provider Primary Care Provider Unavailable Reason for Visit Reason Comments Refill Encounter Details Date Type Department Care Team Description 12/08/2011 Telephone [facility] Tiera Kaur, RN Refill [address] [place], [place] [address] Social History Tobacco Use Types Packs/Day Years Used Date Smoking Tobacco: Never Assessed Sex Assigned at Date Recorded Not on file documented as of this encounter Nursing Notes Parris Lucas MD - 12/09/2011 6:39 AM CDT ok, thanks Tiera Kaur, RN - 12/08/2011 2:22 PM CDT Confirmed with [facility] in [place] that they have sinemet cr 25/100 in stock, and they do. New order for sinemet cr 25/100 provided (doubled quantity of cr 50/200 prescription). Call to Jessica. She will pick and shovel worker prescription from [employer]. Tiera Kapoor, RN - 12/08/2011 2:03 PM [...] states cannot get sinemet cr due to supervisor pipe joints shortage. documented in this encounter Plan of Treatment Upcoming Encounters Date Type Specialty Care Team Description 06/08/2022 Appointment Neurology Parris Lucas MD 3932 [facility] [address] [facility] [address] (Wo rk) documented as of this encounter Visit Diagnoses Not on filedocumented in this encounter Care Teams Grinding And Spraying Supervisor Relationship Specialty Start Date End Date Unassigned, Provider PCP - General 03/13/00 03/16/[address] [place] [address] documented as of this encounter
--- OUTSIDE RECORDS SUMMARY | 2021-12-18 19:25 | XMS_ITS | Encounter Summary ---
:1955 Author Organization [facility] Address [address] [place] [address] Care Team Providers Name Role Phone Unassigned, Provider Primary Care Provider Unavailable Reason for Visit Reason Comments UPDATE Encounter Details Date Type Department Care Team Description 02/24/2012 Telephone [facility] Daniela Prakash, RN UPDATE [address] [place], [place] [address] Social History Tobacco Use [...] Prior authorization paperwork completed and faxed to [place] [employer]. documented in this encounter Plan of Treatment Upcoming Encounters Date Type Specialty Care Team Description 06/08/2022 Appointment Neurology Parris Lucas MD 3931 [facility] [address] [facility] N [address] (Wo rk) documented as of this encounter Visit Diagnoses Not on filedocumented in this encounter Care Teams City Constable Relationship Specialty Start Date End Date Unassigned, Provider PCP - General 03/13/00 03/16/[address] [place] [address] documented as of this encounter
--- OUTSIDE RECORDS SUMMARY | 2021-12-18 19:25 | XMS_ITS | Encounter Summary ---
:1955 Author Organization [facility] Address [address] [place] [address] Care Team Providers Name Role Phone Unassigned, Provider Primary Care Provider Unavailable Reason for Visit Reason Comments WEAKNESS,EXTREMITIES Medication Questions Blood Pressure, low Encounter Details Date Type Department Care Team Description 04/18/2011 Office Visit [facility] Parris Lucas MD Parkinson's disease [address] [place] 0552 [facility] ) (Primary Dx) Drive [facility] [address] [place] [address] [phone] (Wo rk) Social History Tobacco Use Types Packs/Day Years Used Date Smoking Tobacco: Never Assessed Sex Assigned at Date Recorded Not on file documented as of this encounter Last Filed Vital Signs Vital Sign Reading Time Taken Comments Blood Pressure 84/60 04/18/2011 1:37 PM REHABILITATION SERVICES DIRECTOR Pulse 84 04/18/2011 1:37 PM REHABILITATION SERVICES DIRECTOR Temperature - - Respiratory Rate - - Oxygen Saturation - - Inhaled Oxygen Concentration - - Weight 68.8 kg (151 lb 9.6 oz) 04/18/2011 1:34 PM REHABILITATION SERVICES DIRECTOR Height - - Body Mass Index [...] balance see me in about 6 weeks BILITATION SERVICES DIRECTOR documented in this encounter Progress Notes Parris Lucas MD - 04/19/2011 1:50 PM CST [facility] ANNUAL Follow-up Examination [facility] [place] [address] SUBJECTIVE: Chief complaint: Chief Complaint Patient presents [...] and updated on the Health Profile of [facility]. Current Medications: Reviewed today and updated on Health Profile in [facility]. Current outpatient prescriptions ordered prior to encounter [...] status: limits appropriately, not in the cities entry level financial analyst: no concerns Advance directive: has one in [...] Plan Send copy to: Dr. Prakash Pérez, [facility], [address] [place] [address] Parris Lucas MD 1:56 PM 04/18/2011 *Note: underlined items are the 10 items included in the 2011 [place] [employer] Parkinson's Disease Practice Parameters for the annual examination of a person with Parkinson's disease documented in this encounter Plan of Treatment Upcoming Encounters Date Type Specialty Care Team Description 06/08/2022 Appointment Neurology Parris Lucas MD 3935 [facility] [address] [facility] [address] (Wo rk) documented as of this encounter Visit Diagnoses Diagnosis Parkinson's disease (HRC) - Primary documented in this encounter Care Teams Sales Representative Facility Services Relationship Specialty Start Date End Date Unassigned, Provider PCP - General 03/13/00 03/16/[address] [place] [address] documented as of this encounter
--- OUTSIDE RECORDS SUMMARY | 2021-12-18 19:25 | XMS_ITS | Encounter Summary ---
:1955 Author Organization [facility] Address [address] [place] [address] Care Team Providers Name Role Phone Unassigned, Provider Primary Care Provider Unavailable Reason for Visit Reason Comments Medication Questions Encounter Details Date Type Department Care Team Description 10/01/2012 Telephone [facility] Daniela Prakash Medication Questions [address] tung Medeiros RN [place], [place] [address] Social History Tobacco Use [...] 06/08/2022 Appointment Neurology Parris Lucas MD 3932 [facility] [address] [facility] [address] (Wo rk) documented as of this encounter Visit Diagnoses Not on filedocumented in this encounter Care Teams Architectural Drafting Instructor Relationship Specialty Start Date End Date Unassigned, Provider PCP - General 03/13/00 03/16/[address] [place] [address] documented as of this encounter
--- OUTSIDE RECORDS SUMMARY | 2021-12-18 19:25 | XMS_ITS | Encounter Summary ---
:1955 Author Organization [facility] Address [address] [place] [address] Care Team Providers Name Role Phone Unassigned, Provider Primary Care Provider Unavailable Reason for Visit Reason Comments Medication Questions Encounter Details Date Type Department Care Team Description 12/04/2012 Telephone [place] [facility] Chelsie Toribio credit rating inspector Questions [address] [place], [place] [address] Social History Tobacco Use [...] Description 06/08/2022 Appointment Neurology Parris Lucas MD [address] [facility] [address] [facility] [address] (Wo rk) documented as of this encounter Visit Diagnoses Not on filedocumented in this encounter Care Teams Marine Equipment Design Engineer Relationship Specialty Start Date End Date Unassigned, Provider PCP - General 03/13/00 03/16/[address] [place] [address] documented as of this encounter
--- OUTSIDE RECORDS SUMMARY | 2021-12-18 19:25 | XMS_ITS | Encounter Summary ---
:1955 Author Organization [facility] Address [address] [place] [address] Care Team Providers Name Role Phone Unassigned, Provider Primary Care Provider Unavailable Reason for Visit Reason Comments Letter Encounter Details Date Type Department Care Team Description 11/16/2011 Notes/Orders [place] [facility] Chelsie Toribio, RN [address] [place], [place] [address] Social History Tobacco Use [...] out by Dr. Lucas to: Darlene Deniserachael [address] [place] [phone] Copy sent to [facility]. documented in this encounter Plan of Treatment Upcoming Encounters Date Type Specialty Care Team Description 06/08/2022 Appointment Neurology Parris Lucas MD [address] [facility] [address] [facility] [address] (Wo rk) documented as of this encounter Visit Diagnoses Not on filedocumented in this encounter Care Teams Internal Revenue Service Agent Relationship Specialty Start Date End Date Unassigned, Provider PCP - General 03/13/00 03/16/[address] [place] [address] documented as of this encounter
--- OUTSIDE RECORDS SUMMARY | 2021-12-18 19:25 | XMS_ITS | Encounter Summary ---
:1955 Author Organization [facility] Address [address] [place] [address] Care Team Providers Name Role Phone Unassigned, Provider Primary Care Provider Unavailable Reason for Visit Reason Comments Balance/gait Dysfunction Encounter Details Date Type Department Care Team Description 06/03/2011 Office Visit [place] [facility] Gabriela cMbride Paral ysis agitans; Therapy L, PT Abnormality of gait; [address] [place] Pers onal history of fall [address] [place], [place] [phone] Social History Tobacco Use Types Packs/Day Years [...] months, then d/c Procedures: Neuromuscular Re-education (CPT 36359) 15 minutes. Therapeutic Activities (CPT 32172) 30 minutes. Gait Training (CPT 90360) 15 minutes. Total Treatment Time: 60 Therapist: Gabriela Mcbride, PT, [facility], 2932 *SH~REHAB~PTPARKPRG~ Shorthand Note completed on: 06/04/2011 2:30 PM documented in this encounter Plan of Treatment Upcoming Encounters Date Type Specialty Care Team Description 06/08/2022 Appointment Neurology Parris Lucas MD [address] [facility] [address] [facility] [address] (Wo rk) documented as of this encounter Visit Diagnoses Diagnosis Paralysis agitans (HRC) Paralysis agitans Abnormality of gait Personal history of fall documented in this encounter Care Teams Bindery Machine Tender Relationship Specialty Start Date End Date Unassigned, Provider PCP - General 03/13/00 03/16/[address] [place] [address] documented as of this encounter
--- OUTSIDE RECORDS SUMMARY | 2021-12-18 19:25 | XMS_ITS | Encounter Summary ---
:1955 Author Organization [facility] Address [address] [place] [address] Care Team Providers Name Role Phone Unassigned, Provider Primary Care Provider Unavailable Reason for Visit Reason Comments WEAKNESS,EXTREMITIES Balance/gait Dysfunction DIZZINESS Encounter Details Date Type Department Care Team Description 06/03/2011 Office Visit [place] [facility] Parris Lucas MD Parkinson's disease [facility] [address] ([facility] ) (Primary Dx) Drive [facility] [address] [place] [phone] (Wo rk) Social History Tobacco Use Types [...] Lucas MD - 06/03/2011 1:43 PM CDT [facility] ANNUAL Follow-up Examination [facility] [place] [address] SUBJECTIVE: Chief complaint: Chief Complaint Patient presents [...] and updated on the Health Profile of [facility]. Current Medications: Reviewed today and updated on Health Profile in [facility]. Current outpatient prescriptions ordered prior to [...] daily (every 24 hours). 90 3 ??? Jsxyo-7-UFL-EPA-Fish Oil 805-1,000 mg Cap Take 1 capsule [...] alcohol/tobacco: none driving status: limits appropriately financial services education consultant: no concerns Advance directive: has one in [...] Plan Send copy to: Dr. Prakash Pérez, [facility], [address] [place] [address] Parris Lucas MD 12:54 PM 06/03/2011 *Note: underlined items are the 10 items included in the 2011 [place] [employer] Parkinson's Disease Practice Parameters for the annual examination of a person with Parkinson's disease documented in this encounter Plan of Treatment Upcoming Encounters Date Type Specialty Care Team Description 06/08/2022 Appointment Neurology Parris Lucas MD [address] [facility] [address] [place] [address] (Wo rk) documented as of this encounter Visit Diagnoses Diagnosis Parkinson's disease (HRC) - Primary documented in this encounter Care Teams Radial Drill Press Set Up Operator Relationship Specialty Start Date End Date Unassigned, Provider PCP - General 03/13/00 03/16/[address] [place] [address] documented as of this encounter
--- OUTSIDE RECORDS SUMMARY | 2021-12-18 19:25 | XMS_ITS | Encounter Summary ---
:1955 Author Organization [facility] Address [address] [place] [address] Care Team Providers Name Role Phone Unassigned, Provider Primary Care Provider Unavailable Reason for Referral Specialty Diagnoses / Procedures Referred By Contact Refer red To Contact Parris Lucas MD [address] [facility] [address] [place], [place] [address] Referral ID Status Reason Start Date Expiration Date Visits Requ ested Visits Authorized IT NEGOTIATOR Reason for Visit Reason Comments Balance/gait Dysfunction Encounter Details Date Type Department Care Team Description 03/23/2012 Initial Consult [place] [facility] Chelsie Weston Par kinson's disease (HRC); Therapy Abnormality of gait [address] [place], [place] [phone] Social History Tobacco Use Types Packs/Day Years [...] (in airport) Support System: Lives with primary career resource specialist. Living Situation: Private home, all on 1 level. Handicap accessible -Living location: [place]. -Living Environment: Urban-mostly paved areas to [...] - TREATMENT TODAY -Physical Therapy Evaluation (CPT 08588) -Gait training (CPT 79204) 5 minutes. Patient's poles are higher than optimal, but are not adjustable. Briefly reviewed pole walking technique to facilitate reciprocal arm swing and increase intensity of exercise; used demo 4WW (patient did not have own) to instruct patient in proper fitting of deviceas well as safe management of brakes, seat. -Neuromuscular reeducation (CPT 68439) - 15 minutes: Instruction in high amplitude [...] to address this deficit. -Therapeutic exercise (CPT 34448) - 10 minutes: Instruction in sit to [...] minutes. Electronically signed by: Chelsie Weston, PT 6358, 03/23/2012 The jig and fixture maker is completed by the therapist and the physician electronic signature certifies medical necessity for the plan above. *SH~REHAB~PTPARKEVA~ Shorthand Note completed on: 03/23/2012 5:31 PM IT NEGOTIATOR documented in this encounter Plan of Treatment Upcoming Encounters Date Type Specialty Care Team Description 06/08/2022 Appointment Neurology Parris Lucas MD 39[address] [facility] [address] [facility] [address] (Wo rk) Scheduled Referrals Name Type Priority Associated Diagnoses Order S chedule Physical Therapy Referral Routine Parkinson's disease (HRC ) Ordered: 03/23/2012 documented as of this encounter Visit Diagnoses Diagnosis Parkinson's disease (HRC) Abnormality of gait documented in this encounter Care Teams Gas Meter Installer Helper Relationship Specialty Start Date End Date Unassigned, Provider PCP - General 03/13/00 03/16/[address] [place] [address] documented as of this encounter
--- OUTSIDE RECORDS SUMMARY | 2021-12-18 19:25 | XMS_ITS | Encounter Summary ---
:1955 Author Organization [facility] Address [address] [place] [address] Care Team Providers Name Role Phone Unassigned, Provider Primary Care Provider Unavailable Reason for Visit Reason Comments Medication Questions Encounter Details Date Type Department Care Team Description 08/22/2012 Telephone [place] [facility] Chelsie Toribio, procurement professional logistics Questions [address] [place], [place] [address] Social History Tobacco Use Types Packs/Day Years Used Date Smoking Tobacco: Never Assessed Sex Assigned at Date Recorded Not on file documented as of this encounter Nursing Notes Parris Lucas MD - 08/23/2012 5:09 PM CDT signed Chelsie Toribio RN - 08/22/2012 5:44 PM CDT Received fax from [facility] in [place] asking if Foltix 2/2.5 could be changed to foltx 1./2. Faxed back signed ok'd yes by Dr. Lucas. Please sign prescription for Foltx 1./2mg #90 with 2 refills. Thanks. documented in this encounter Plan of Treatment Upcoming Encounters Date Type Specialty Care Team Description 06/08/2022 Appointment Neurology Parris Lucas MD 39[address] [facility] [address] [facility] [address] (Wo rk) documented as of this encounter Visit Diagnoses Not on filedocumented in this encounter Care Teams Phone Triage Specialist Relationship Specialty Start Date End Date Unassigned, Provider PCP - General 03/13/00 03/16/[address] [place] [address] documented as of this encounter
--- OUTSIDE RECORDS SUMMARY | 2021-12-18 19:25 | XMS_ITS | Encounter Summary ---
:1955 Author Organization [employer] Address [address] [place] [address] Care Team Providers Name Role Phone Unassigned, Provider Primary Care Provider Unavailable Reason for Visit Reason Comments Medication Questions Encounter Details Date Type Department Care Team Description 02/16/2012 Telephone [place] [facility] Fior Daniel, kaiawhina Questions [address] [place], [place] [address] Social History Tobacco Use Types Packs/Day Years Used Date Smoking Tobacco: Never Assessed Sex Assigned at Date Recorded Not on file documented as of this encounter Nursing Notes Fior Daniel RN - 02/16/2012 12:53 PM CST Have a 2mg and 4mg sample, will mail. Please sign samples I pended and close encounter. HARGE SPECIALIST Parris Lucas MD - 02/16/2012 11:51 AM CST ok, thanks HARGE SPECIALIST Fior Daniel RN - 02/16/2012 11:37 AM [...] Description 06/08/2022 Appointment Neurology Parris Lucas MD [address] [facility] [address] [facility] [address] (Wo rk) documented as of this encounter Visit Diagnoses Not on filedocumented in this encounter Care Teams Varitypist Relationship Specialty Start Date End Date Unassigned, Provider PCP - General 03/13/00 03/16/[address] [place] [address] documented as of this encounter
--- OUTSIDE RECORDS SUMMARY | 2021-12-18 19:25 | XMS_ITS | Encounter Summary ---
:1955 Author Organization [facility] Address [address] [place] [address] Care Team Providers Name Role Phone Unassigned, Provider Primary Care Provider Unavailable Reason for Visit Reason Comments Follow-up Medication Questions DEPRESSION WEIGHT LOSS Encounter Details Date Type Department Care Team Description 03/23/2012 Office Visit [place] [facility] Parris Lucas MD Parkinson's disease [address] [place] [address] ) (Primary Dx) Drive [address] [place] [phone] (Wo rk) Social History Tobacco Use Types Packs/Day Years Used Date Smoking Tobacco: Never Assessed Sex Assigned at Date Recorded Not on file documented as of this encounter Last Filed Vital Signs Vital Sign Reading Time Taken Comments Blood Pressure 98/62 03/23/2012 10:18 AM RADIO EQUIPMENT REPAIRER Pulse 72 03/23/2012 10:18 AM RADIO EQUIPMENT REPAIRER Temperature - - Respiratory Rate - - Oxygen Saturation - - Inhaled Oxygen Concentration - - Weight 64.8 kg (142 lb 12.8 oz) 03/23/2012 10:14 AM RADIO EQUIPMENT REPAIRER Height - - Body Mass Index 21.09 02/07/2012 8:49 AM RADIO EQUIPMENT REPAIRER documented in this encounter Patient Instructions Patient InstructionsParris Lucas MD - 03/23/2012 10:42 AM CST 1. stop Neupro 2. start mirtazapine (remeron) 15mg at bedtime for sleep and mood 3. take an IR sinemet 25/100 up to eight times a day as needed 4. return in 3 months with your ! I want to meet him! O EQUIPMENT REPAIRER documented in this encounter Progress Notes Parris Lucas MD - 03/23/2012 11:13 AM CST [facility] ANNUAL Follow-up Examination [facility] [place] [address] SUBJECTIVE: Chief Complaint Patient presents with ??? [...] and updated on the Health Profile of [facility]. Current Medications: Reviewed today and updated on Health Profile in [facility]. Current outpatient prescriptions ordered prior to [...] daily (every 24 hours). exp: 07/06/2013 lot: [id number] 7 patch 0 Family History Update: No new information to report Social History Update: lives in house with her work status: on disability financial institution manager: no concerns driving status: no concerns Advance [...] Plan Send copy to: Dr. Prakash Pérez, [address] [place] [address] Parris Lucas MD 10:29 AM 03/23/2012 *Note: underlined items are the 10 items included in the 2011 [place] [employer] [place] [employer] Neurology Parkinson's Disease Practice Parameters for the annual examination of a person with Parkinson's disease documented in this encounter Plan of Treatment Upcoming Encounters Date Type Specialty Care Team Description 06/08/2022 Appointment Neurology Parris Lucas MD [address] [facility] [address] [facility] [address] (Wo rk) documented as of this encounter Visit Diagnoses Diagnosis Parkinson's disease (HRC) - Primary documented in this encounter Care Teams Soil Fertility Extension Specialist Relationship Specialty Start Date End Date Unassigned, Provider PCP - General 03/13/00 03/16/14 [address] [place] [address] documented as of this encounter
--- OUTSIDE RECORDS SUMMARY | 2021-12-18 19:25 | XMS_ITS | Encounter Summary ---
:1955 Author Organization [facility] Address [address] [place] [address] Care Team Providers Name Role Phone Unassigned, Provider Primary Care Provider Unavailable Reason for Visit Reason Comments ERRONEOUS ENTRY Encounter Details Date Type Department Care Team Description 02/29/2012 Telephone [place] [facility] Fior Daniel RN ERRONEOUS ENTRY [address] [place], [place] [address] Social History Tobacco Use Types Packs/Day Years Used Date Smoking Tobacco: Never Assessed Sex Assigned at Date Recorded Not on file documented as of this encounter Plan of Treatment Upcoming Encounters Date Type Specialty Care Team Description 06/08/2022 Appointment Neurology Parris Lucas MD 3938 [facility] [address]500 [facility] N [phone] (Wo rk) documented as of this encounter Visit Diagnoses Not on filedocumented in this encounter Care Teams Ammonium Nitrate Crystallizer Relationship Specialty Start Date End Date Unassigned, Provider PCP - General 03/13/00 03/16/[address] [place] [address] documented as of this encounter
--- OUTSIDE RECORDS SUMMARY | 2021-12-18 19:25 | XMS_ITS | Encounter Summary ---
:1955 Author Organization [facility] Address [address] [place] [address] Care Team Providers Name Role Phone Unassigned, Provider Primary Care Provider Unavailable Reason for Visit Reason Comments Medication Questions Encounter Details Date Type Department Care Team Description 01/16/2012 Telephone [place] [facility] Chelsie Toribio scruff worker Questions [address] [place], [place] [address] Social History Tobacco Use Types Packs/Day Years Used Date Smoking Tobacco: Never Assessed Sex Assigned at Date Recorded Not on file documented as of this encounter Nursing Notes Daniela Prakash RN - 01/30/2012 2:14 PM CST mailed samples to home address. L INSPECTION SUPERVISOR Parris Lucas MD - 01/27/2012 7:42 AM CST scripts signed L INSPECTION SUPERVISOR Chelsie Toribio RN - 01/25/2012 5:57 PM CST Received more samples of Neupro Please sign for samples and we will call her and send to her. Thanks. L INSPECTION SUPERVISOR Parris Lucas MD - 01/19/2012 3:41 PM CST ok, thanks L INSPECTION SUPERVISOR Fior Daniel RN - 01/19/2012 2:47 PM [...] 6mg. Please call when samples are sent. L INSPECTION SUPERVISOR Chelsie Toribio RN - 01/18/2012 5:30 PM [...] she is unable to get here to sweet pickle maker. Samples in med cabinet with her name [...] PM CST Left message to call back. L INSPECTION SUPERVISOR Parris Lucas MD - 01/16/2012 5:58 PM CST I would love to give her the patch, 2-4-6mg one week of each and then decide what dose to write a prescription for. We may have trouble doing a prior auth for her, though, as she has not previously taken Mirapex or Requip, I think. L INSPECTION SUPERVISOR Chelsie Toribio RN - 01/16/2012 5:35 PM [...] Description 06/08/2022 Appointment Neurology Parris Lucas MD [address] [facility] [address] [facility] [address] (Wo rk) documented as of this encounter Visit Diagnoses Not on filedocumented in this encounter Care Teams Sustainability Project Coordinator Relationship Specialty Start Date End Date Unassigned, Provider PCP - General 03/13/00 03/16/[address] [place] [address] documented as of this encounter
--- OUTSIDE RECORDS SUMMARY | 2021-12-18 19:25 | XMS_ITS | Encounter Summary ---
:1955 Author Organization [facility] Address [address] [place] [address] Care Team Providers Name Role Phone Unassigned, Provider Primary Care Provider Unavailable Encounter Details Date Type Department Care Team Description 06/09/2011 Notes/Orders [place] [facility] Parris Lucas MD Parkinson's disease [address] [place] [address] [facility] ([facility] ) (Primary Dx) Drive [address] [place] [phone] (Wo rk) Social History Tobacco Use Types [...] Description 06/08/2022 Appointment Neurology Parris Lucas MD [address] [facility] [address] [facility] [address] (Wo rk) documented as of this encounter Visit Diagnoses Diagnosis Parkinson's disease (HRC) - Primary documented in this encounter Care Teams Fuller Brush Worker Relationship Specialty Start Date End Date Unassigned, Provider PCP - General 03/13/00 03/16/[address] [place] [address] documented as of this encounter
--- OUTSIDE RECORDS SUMMARY | 2021-12-18 19:25 | XMS_ITS | Encounter Summary ---
:1955 Author Organization [facility] Address [address] [place] [address] Care Team Providers Name Role Phone Unassigned, Provider Primary Care Provider Unavailable Reason for Visit Reason Comments Medication Questions Encounter Details Date Type Department Care Team Description 03/01/2013 Telephone [place] [facility] Chelsie Toribio race car driver Questions [address] [place], [place] [address] Social History Tobacco Use Types Packs/Day Years Used Date Smoking Tobacco: Never Assessed Sex Assigned at Date Recorded Not on file documented as of this encounter Nursing Notes Chelsie Toribio RN - 03/04/2013 12:03 PM CST Jessica called back. Told her that according to insurance co. drug is covered. She will contact us if she has any problems. NG COMMISSIONER Chelsie Toribio RN - 03/01/2013 4:50 PM CST Received a fax from pt. along with formulary exception form. stating that apralozam will not be covered by medicare next year. Called [employer] and they ran it through for next year and drug was covered. Brand name notcovered, but patient is not on brand name. Called and LM asking Jessica to call back with some news. NG COMMISSIONER documented in this encounter Plan of Treatment Upcoming Encounters Date Type Specialty Care Team Description 06/08/2022 Appointment Neurology Parris Lucas MD [address] [place] [address] (Wo rk) documented as of this encounter Visit Diagnoses Not on filedocumented in this encounter Care Teams Gang Leader Relationship Specialty Start Date End Date Unassigned, Provider PCP - General 03/13/00 03/16/[address] [place] [address] documented as of this encounter
--- OUTSIDE RECORDS SUMMARY | 2021-12-18 19:25 | XMS_ITS | Encounter Summary ---
:1955 Author Organization [facility] Address [address] [place] [address] Care Team Providers Name Role Phone Unassigned, Provider Primary Care Provider Unavailable Reason for Visit Reason Comments Refill Encounter Details Date Type Department Care Team Description 12/06/2011 Telephone [place] [facility] Fior Daniel, RN Refill [address] [place], [place] [address] Social History Tobacco Use [...] Parris Lucas MD [address] [facility] [address] [facility] N [address] (Wo rk) documented as of this encounter Visit Diagnoses Not on filedocumented in this encounter Care Teams Cement Mason Relationship Specialty Start Date End Date Unassigned, Provider PCP - General 03/13/00 03/16/[address] [place] [address] documented as of this encounter
--- OUTSIDE RECORDS SUMMARY | 2021-12-18 19:25 | XMS_ITS | Encounter Summary ---
:1955 Author Organization [facility] Address [address] [place] [address] Care Team Providers Name Role Phone Unassigned, Provider Primary Care Provider Unavailable Reason for Visit Reason Comments Refill Encounter Details Date Type Department Care Team Description 07/16/2012 Refill [facility] 393 1 Neurology Jessika Hilario RN Refill 3931 [place], [place] [address] Social History Tobacco Use Types Packs/Day Years Used Date Smoking Tobacco: Never Assessed Sex Assigned at Date Recorded Not on file documented as of this encounter Plan of Treatment Upcoming Encounters Date Type Specialty Care Team Description 06/08/2022 Appointment Neurology Parris Lucas MD [address] [facility] [address] [facility] N [address] (Wo rk) documented as of this encounter Visit Diagnoses Not on filedocumented in this encounter Care Teams Bass Viol Repairer Relationship Specialty Start Date End Date Unassigned, Provider PCP - General 03/13/00 03/16/[address] [place] [address] documented as of this encounter
--- OUTSIDE RECORDS SUMMARY | 2021-12-18 19:25 | XMS_ITS | Encounter Summary ---
:1955 Author Organization [facility] Address [address] [place] [address] Care Team Providers Name Role Phone Unassigned, Provider Primary Care Provider Unavailable Reason for Visit Reason Comments Follow-up Medication Problems Encounter Details Date Type Department Care Team Description 10/05/2012 Office Visit [facility] Parris Lucas MD Parkinson's disease [facility] [place] ([address]) Drive [address] [place] [phone] (Wo rk) Social History Tobacco Use Types [...] Body Mass Index 21.71 02/07/2012 8:49 AM CHIN STRAP SEWER documented in this encounter Patient Instructions Patient InstructionsParris Lucas MD - 10/05/2012 2:44 PM CDT take sinemet 25/100 2 pills every 3 hours at 4-6-22-3-6-9 and a CR sinemet during the night, amantadine morning and noon check with Dr. Pérez about an antidepressant return in 3 months documented in this encounter Progress Notes Parris Lucas MD - 10/09/2012 3:21 PM CDT [facility] Follow-up Examination [facility] [address] [place], [place] [id number] , SUBJECTIVE: Chief Complaint Patient presents with [...] and updated on Health Profile in [facility]. Current Outpatient Prescriptions on File Prior to Visit Medication Sig Note Dispense Refill ??? amantadine (SYMMETREL) 100 mg capsule Take 1 capsule by mouth 2 times daily. 60 capsule 2 ??? M66-gollrahq calcium-B-6 (FOLTX) 2-1.13-25 mg Tab Take 1 [...] of note to: Dr. Prakash Pérez, [address] [place] [address] Parris Lucas MD 2:18 PM 10/05/2012 documented in this encounter Plan of Treatment Upcoming Encounters Date Type Specialty Care Team Description 06/08/2022 Appointment Neurology Parris Lucas MD [address] [facility] [address] [facility] N [address] (Wo rk) documented as of this encounter Visit Diagnoses Diagnosis Parkinson's disease (HRC) - Primary documented in this encounter Care Teams Ranch Helper Relationship Specialty Start Date End Date Unassigned, Provider PCP - General 03/13/00 03/16/[address] [place] [address] documented as of this encounter
--- OUTSIDE RECORDS SUMMARY | 2021-12-18 19:25 | XMS_ITS | Encounter Summary ---
:1955 Author Organization [facility] Address [address] [place] [address] Care Team Providers Name Role Phone Unassigned, Provider Primary Care Provider Unavailable Reason for Visit Reason Comments Phone Call Encounter Details Date Type Department Care Team Description 03/12/2012 Telephone [place] [facility] Daniela Prakash, RN Phone Call [address] [place], [place] [address] Social History Tobacco Use Types Packs/Day Years Used Date Smoking Tobacco: Never Assessed Sex Assigned at Date Recorded Not on file documented as of this encounter Nursing Notes Parris Lucas MD - 03/12/2012 2:15 PM CST I agree with the plan; script signed ORATE TRAVEL EXPERT Daniela Prakash, RN - 03/12/2012 1:55 PM [...] Parris Lucas MD 3931 [facility] [address]500 [facility] [phone] (Wo rk) documented as of this encounter Visit Diagnoses Not on filedocumented in this encounter Care Teams Spray Applicator Relationship Specialty Start Date End Date Unassigned, Provider PCP - General 03/13/00 03/16/[address] [place] [address] documented as of this encounter
--- OUTSIDE RECORDS SUMMARY | 2021-12-18 19:25 | XMS_ITS | Encounter Summary ---
:1955 Author Organization [facility] Address [address] [place] [address] Care Team Providers Name Role Phone Unassigned, Provider Primary Care Provider Unavailable Reason for Visit Reason Comments Refill Encounter Details Date Type Department Care Team Description 05/23/2013 Refill [place] Parris Lucas MD Refill [address] [facility] [address] [place], [place] [address] [place] [address] [phone] (Wo rk) Social History Tobacco Use Types Packs/Day Years Used Date Smoking Tobacco: Never Assessed Sex Assigned at Date Recorded Not on file documented as of this encounter Plan of Treatment Upcoming Encounters Date Type Specialty Care Team Description 06/08/2022 Appointment Neurology Parris Lucas MD 3931 [facility] [address] [facility] N [address] (Wo rk) documented as of this encounter Visit Diagnoses Not on filedocumented in this encounter Care Teams Deaf/Hard Of Hearing Specialist Relationship Specialty Start Date End Date Unassigned, Provider PCP - General 03/13/00 03/16/14 [address] [place] [address] documented as of this encounter
--- OUTSIDE RECORDS SUMMARY | 2021-12-18 19:25 | XMS_ITS | Encounter Summary ---
:1955 Author Organization [facility] Address [address] [place] [address] Care Team Providers Name Role Phone Unassigned, Provider Primary Care Provider Unavailable Reason for Visit Reason Comments Medication Questions Encounter Details Date Type Department Care Team Description 10/09/2012 Telephone [facility] Chelsie Toribio mailroom manager Questions [address] [place], [place] [address] Social History Tobacco Use [...] to 8 doses of IR sinemet/day, at 4-7-10-12-2-4-6-8 and then CR at bedtime, with appropriate [...] 06/08/2022 Appointment Neurology Parris Lucas MD 3934 [facility] [address] [facility] N [phone] (Wo rk) documented as of this encounter Visit Diagnoses Not on filedocumented in this encounter Care Teams Medical Insurance Claims Specialist Relationship Specialty Start Date End Date Unassigned, Provider PCP - General 03/13/00 03/16/[address] [place] [address] documented as of this encounter
--- OUTSIDE RECORDS SUMMARY | 2021-12-18 19:25 | XMS_ITS | Encounter Summary ---
:1955 Author Organization [facility] Address [address] [place] [address] Care Team Providers Name Role Phone Unassigned, Provider Primary Care Provider Unavailable Reason for Visit Reason Comments UPDATE Encounter Details Date Type Department Care Team Description 02/13/2012 Telephone [place] [facility] Daniela Prakash, RN UPDATE [address] [place], [place] [address] Social History Tobacco Use [...] 06/08/2022 Appointment Neurology Parris Lucas MD [address] [facility] [address] [facility] N [phone] (Wo rk) documented as of this encounter Visit Diagnoses Not on filedocumented in this encounter Care Teams Physician Scientist Relationship Specialty Start Date End Date Unassigned, Provider PCP - General 03/13/00 03/16/[address] [place] [address] documented as of this encounter
--- OUTSIDE RECORDS SUMMARY | 2021-12-18 19:25 | XMS_ITS | Encounter Summary ---
:1955 Author Organization [facility] Address [address] [place] [address] Care Team Providers Name Role Phone Unassigned, Provider Primary Care Provider Unavailable Reason for Visit Reason Comments Follow-up FALL MEDICATION CHECK Encounter Details Date Type Department Care Team Description 05/31/2013 Office Visit [facility] Parris Lucas MD Parkinson's disease [facility] ([address]) Drive [address] [place] [phone] (Wo rk) Social History Tobacco Use Types [...] Body Mass Index 24.98 01/17/2013 9:57 AM COMMUNICATIONS LEAD documented in this encounter Patient Instructions Patient InstructionsParris Lucas MD - 05/31/2013 10:49 AM CDT see physical therapy for evaluation for a walker documented in this encounter Progress Notes Parris Lucas MD - 05/31/2013 12:27 PM CDT [facility] ANNUAL Follow-up Examination [facility] [address] [place] [address] SUBJECTIVE: Chief Complaint Patient presents with ??? Follow-up Started support group in [place]! ??? Fall Couple falls since last visit. Will take walker with her if she goues out for long periods of time ??? Medication Check working okay for her. Update and other concerns: returns for followup. She continues to take sinemet every 2 hours, and amantadine. She uses a walker some of the time. She will be going up to [facility] in August, and has a camping trip planned in September. She started a support group in [place]! Past Medical History Update: no new issues Adverse Drug Reactions: Adverse Drug Reactions were reviewed today, and updated on the Health Profile of [facility]. Current Medications: Reviewed today and updated on Health Profile in [facility]. Current Outpatient Prescriptions on File Prior [...] tablets by mouth every 2 hours. Take gr8-9-61-12-2-4-6-8, total of 16 tabs. ??? cholecalciferol (VITAMIN [...] 8 ounces of fluid and drink. 01/17/2013: [id number] No current facility-administered medications on file prior to visit. 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 Prakash Pérez, [address] [place] [phone] Parris Lucas MD 10:39 AM 05/31/2013 *Note: underlined items are the 10 items included in the 2011 [place] [employer] Parkinson's Disease Practice Parameters for the annual examination of a person with Parkinson's disease documented in this encounter Plan of Treatment Upcoming Encounters Date Type Specialty Care Team Description 06/08/2022 Appointment Neurology Parris Lucas MD [address] [facility] [address] [facility] [phone] (Wo rk) documented as of this encounter Visit Diagnoses Diagnosis Parkinson's disease (HRC) - Primary documented in this encounter Care Teams Ceramic Sprayer Relationship Specialty Start Date End Date Unassigned, Provider PCP - General 03/13/00 03/16/[address] [place] [address] documented as of this encounter
--- OUTSIDE RECORDS SUMMARY | 2021-12-18 19:25 | XMS_ITS | Encounter Summary ---
:1955 Author Organization [facility] Address [address] [place] [address] Care Team Providers Name Role Phone Unassigned, Provider Primary Care Provider Unavailable Reason for Visit Reason Comments Symptoms Medication Questions Mood Change WEIGHT LOSS Encounter Details Date Type Department Care Team Description 02/07/2012 Office Visit [facility] Parris Lucas MD Parkinson's disease [facility] [place] 39[address] [facility] ) (Primary Dx) Drive [facility] [address] [place] [phone] (Wo rk) Social History Tobacco Use Types Packs/Day Years Used Date Smoking Tobacco: Never Assessed Sex Assigned at Date Recorded Not on file documented as of this encounter Last Filed Vital Signs Vital Sign Reading Time Taken Comments Blood Pressure 110/70 02/07/2012 8:54 AM LOOM FIXER APPRENTICE Pulse 80 02/07/2012 8:54 AM LOOM FIXER APPRENTICE Temperature - - Respiratory Rate - - Oxygen Saturation - - Inhaled Oxygen Concentration - - Weight 68.9 kg (151 lb 12.8 oz) 02/07/2012 8:49 AM LOOM FIXER APPRENTICE Height 175.3 cm (5' 9) 02/07/2012 8:49 AM LOOM FIXER APPRENTICE Body Mass Index 22.42 02/07/2012 8:49 AM LOOM FIXER APPRENTICE documented in this encounter Patient Instructions Patient InstructionsParris Lucas MD - 02/07/2012 9:47 AM CST If you do not eat a meal, make sure to drink an ensure or boost drink supplement. Consider attending one of the [employer] Walking events for socialization and exercise. Try to talk openly to family about your needs. Tiera Kaur RN rotigotine: 2mg patch for 1 week, then 4mg patch for 1 week, then a 4 and a 2mg patch for a week. Call if any questions along the way, and call at the end of the trial. return in 6 weeks or so FIXER APPRENTICE documented in this encounter Progress Notes Parris Lucas MD - 02/07/2012 1:22 PM CST [facility] Follow-up Examination [facility] [address] [phone] , SUBJECTIVE: Chief Complaint Patient presents with [...] today and updated on Health Profile in [facility]. Current outpatient prescriptions ordered prior [...] by mouth 2 times daily. ??? DISCONTD: Emnkl-7-VUT-EPA-Fish Oil 805-1,000 mg Cap Take 1 capsule [...] daily (every 24 hours). exp: 05-19-13 Lot: [id number] 14 patch 0 ??? rotigotine (NEUPRO) 4 mg/[address] 1 patch onto the skin daily (every 24 hours). exp: 05-22-13 lot: [id number] 14 patch Family History Update: No family [...] copy of note to: Dr. Prakash Pérez, [address] [place] [address] Parris Lucas MD 9:22 AM 02/07/2012 FIXER APPRENTICE Tiera Kaur RN - 02/07/2012 9:28 AM [...] of the PD exercise groups such as [place]. Tiera Kaur RN FIXER APPRENTICE documented in this encounter Plan of Treatment Upcoming Encounters Date Type Specialty Care Team Description 06/08/2022 Appointment Neurology Parris Lucas MD 9[address] [facility] [address] [facility] [address] (Wo rk) documented as of this encounter Visit Diagnoses Diagnosis Parkinson's disease (HRC) - Primary documented in this encounter Care Teams Product Applications Engineer Relationship Specialty Start Date End Date Unassigned, Provider PCP - General 03/13/00 03/16/[address] [place] [address] documented as of this encounter
--- OUTSIDE RECORDS SUMMARY | 2021-12-18 19:25 | XMS_ITS | Encounter Summary ---
:1955 Author Organization [facility] Address [address] [place] [address] Care Team Providers Name Role Phone Unassigned, Provider Primary Care Provider Unavailable Reason for Visit Reason Comments Phone Call Encounter Details Date Type Department Care Team Description 01/09/2013 Telephone [facility] Daniela Prakash, RN Phone Call [address] [place], [place] [address] Social History Tobacco [...] Patient has a follow up appointment 01/17/2013. ME TAX ADVISOR documented in this encounter Plan of Treatment Upcoming Encounters Date Type Specialty Care Team Description 06/08/2022 Appointment Neurology Parris Lucas MD 3931 [facility] [address] [facility] N [address] (Wo rk) documented as of this encounter Visit Diagnoses Not on filedocumented in this encounter Care Teams Sales Team Member Relationship Specialty Start Date End Date Unassigned, Provider PCP - General 03/13/00 03/16/[address] [place] [address] documented as of this encounter
--- OUTSIDE RECORDS SUMMARY | 2021-12-18 19:25 | XMS_ITS | Encounter Summary ---
:1955 Author Organization [facility] Address [address] [place] [address] Care Team Providers Name Role Phone Unassigned, Provider Primary Care Provider Unavailable Reason for Visit Reason Comments MEDICATION CHECK Encounter Details Date Type Department Care Team Description 06/29/2012 Office Visit [facility] [facility] Parris Lucas MD Parkinson's disease [facility] [place] ) (Primary Dx) Drive [address] [place] [phone] (Wo rk) Social History Tobacco Use Types [...] Body Mass Index 22.33 02/07/2012 8:49 AM LOOM WINDER TENDER documented in this encounter Patient Instructions Patient InstructionsParris Lucas MD - 06/29/2012 12:03 PM CDT 1. trial of rasagiline (Azilect) 1mg in the morning 2. call in a month 3. return in 4 months documented in this encounter Progress Notes Parris Lucas MD - 06/29/2012 12:10 PM CDT [facility] Follow-up Examination [facility] [address] [place] [address] , SUBJECTIVE: Chief Complaint Patient presents with [...] today and updated on Health Profile in [facility]. Current Outpatient Prescriptions on File [...] off with activity. I will write for abfqyuitjo0os/day in addition to the sinemet and amantadine. [...] note to: Dr. Prakash Pérez, [address] [place] [address] Parris Lucas MD 11:45 AM 06/29/2012 documented in this encounter Plan of Treatment Upcoming Encounters Date Type Specialty Care Team Description 06/08/2022 Appointment Neurology Parris Lucas MD 2734 [facility] [address] [place] [address], [place] [address] (Wo rk) documented as of this encounter Visit Diagnoses Diagnosis Parkinson's disease (HRC) - Primary documented in this encounter Care Teams Regional Dedicated Truck Driver Relationship Specialty Start Date End Date Unassigned, Provider PCP - General 03/13/00 03/16/[address] [place] [phone] documented as of this encounter
--- OUTSIDE RECORDS SUMMARY | 2021-12-18 19:25 | XMS_ITS | Encounter Summary ---
:1955 Author Organization [employer] Address [address] [place] [address] Care Team Providers Name Role Phone Unassigned, Provider Primary Care Provider Unavailable Reason for Visit Reason Comments Medication Request Encounter Details Date Type Department Care Team Description 09/08/2011 Telephone [facility] Fior Daniel, abrasive water jet cutter operator Request [address] [place], [place] [address] Social History Tobacco Use Types Packs/Day Years Used Date Smoking Tobacco: Never Assessed Sex Assigned at Date Recorded Not on file documented as of this encounter Nursing Notes Tiera Kaur RN - 09/09/2011 3:01 PM CDT prescription for foltex #90 3 refills faxed to [facility] in [place] per your request. Patient notified. Parris Lucas MD - 09/08/2011 5:10 PM CDT sure, that's fine. The [facility] guadrian put everyone on prescription folate/B complex with their sinemet, and it's fine for her to continue on it. Fior Daniel, RN - 09/08/2011 12:28 PM CDT Requesting refills for Folic acid or Foltex be sent to [facility] in [place]. I suggested that Dr. Lucas prescribes her Carb/Levo and she should have her primary fill this one but she said you have always done it for her. Please advise if you want to continue filling this one? documented in this encounter Plan of Treatment Upcoming Encounters Date Type Specialty Care Team Description 06/08/2022 Appointment Neurology Parris Lucas MD 9[address] [facility] [address] [facility] [address] (Wo rk) documented as of this encounter Visit Diagnoses Not on filedocumented in this encounter Care Teams Radiation Control Health Physicist Relationship Specialty Start Date End Date Unassigned, Provider PCP - General 03/13/00 03/16/[address] [place] [address] documented as of this encounter
--- OUTSIDE RECORDS SUMMARY | 2021-12-18 19:25 | XMS_ITS | Encounter Summary ---
:1955 Author Organization [facility] Address [address] [place] [address] Care Team Providers Name Role Phone Unassigned, Provider Primary Care Provider Unavailable Reason for Visit Reason Comments Other Encounter Details Date Type Department Care Team Description 02/29/2012 Notes/Orders [facility] [place] [facility] Fior Daniel, RN [address] [place], [place] [address] Social History Tobacco Use [...] Description 06/08/2022 Appointment Neurology Parris Lucas MD [address] [facility] [address]500 [facility] N [address] (Wo rk) documented as of this encounter Visit Diagnoses Not on filedocumented in this encounter Care Teams Casino Floor Runner Relationship Specialty Start Date End Date Unassigned, Provider PCP - General 03/13/00 03/16/14 640 [place] [address] documented as of this encounter
--- OUTSIDE RECORDS SUMMARY | 2021-12-18 19:25 | XMS_ITS | Encounter Summary ---
:1955 Author Organization [facility] Address [address] [place] [address] Care Team Providers Name Role Phone Unassigned, Provider Primary Care Provider Unavailable Reason for Visit Reason Comments Follow-up Encounter Details Date Type Department Care Team Description 01/17/2013 Office Visit [facility] Parris Lucas MD Parkinson's disease [facility]1 [employer] [address] [place] [address] ([address] [place] [phone] (Wo rk) Social History Tobacco Use Types Packs/Day Years Used Date Smoking Tobacco: Never Assessed Sex Assigned at Date Recorded Not on file documented as of this encounter Last Filed Vital Signs Vital Sign Reading Time Taken Comments Blood Pressure 114/65 01/17/2013 10:00 AM HEALTH INFORMATION SYSTEMS TECHNICIAN Pulse 77 01/17/2013 10:00 AM HEALTH INFORMATION SYSTEMS TECHNICIAN Temperature - - Respiratory Rate - - Oxygen Saturation - - Inhaled Oxygen Concentration - - Weight 69.6 kg (153 lb 8 oz) 01/17/2013 9:57 AM HEALTH INFORMATION SYSTEMS TECHNICIAN Height 172.7 cm (5' 8) 01/17/2013 9:57 AM HEALTH INFORMATION SYSTEMS TECHNICIAN Body Mass Index 23.34 01/17/2013 9:57 AM HEALTH INFORMATION SYSTEMS TECHNICIAN documented in this encounter Patient Instructions Patient InstructionsParris Lucas MD - 01/17/2013 10:25 AM CST add xanax 0.25 mg 1-2 pills before an anxiety provoking event return in 4 months TH INFORMATION SYSTEMS TECHNICIAN documented in this encounter Progress Notes Parris Lucas MD - 01/17/2013 2:40 PM CST [facility] Follow-up Examination [facility] [address] [place] [address] , SUBJECTIVE: Chief Complaint Patient presents with [...] Health Profile in [facility]. Current Outpatient Prescriptions on File Prior to Visit Medication Sig Note Dispense Refill ??? amantadine HCl (SYMMETREL) 100 mg capsule TAKE ONE CAPSULE BY MOUTH TWICE DAILY 180 capsule 3 ??? [DISCONTINUED] M13-iqjrcewg calcium-B-6 (FOLTX) 2-1.13-25 mg Tab Take 1 [...] tablets by mouth every 2 hours. Take jk0-6-43-12-2-4-6-8, total of 16 tabs. ??? cholecalciferol (VITAMIN [...] note to: Dr. Prakash Pérez, [address] [place] [address] Parris Lucas MD 10:06 AM 01/17/2013 TH INFORMATION SYSTEMS TECHNICIAN documented in this encounter Plan of Treatment Upcoming Encounters Date Type Specialty Care Team Description 06/08/2022 Appointment Neurology Parris Lucas MD 39[address] [facility] [address] [facility] [address] (Wo rk) documented as of this encounter Visit Diagnoses Diagnosis Parkinson's disease (HRC) - Primary documented in this encounter Care Teams Racecar Driver Relationship Specialty Start Date End Date Unassigned, Provider PCP - General 03/13/00 03/16/14 640 [place] [address] documented as of this encounter
--- OUTSIDE RECORDS SUMMARY | 2021-12-18 19:25 | XMS_ITS | Encounter Summary ---
:1955 Author Organization [facility] Address [address] [place] [address] Care Team Providers Name Role Phone Unassigned, Provider Primary Care Provider Unavailable Reason for Visit Reason Comments Follow-up Encounter Details Date Type Department Care Team Description 09/01/2011 Office Visit [facility] Parris Lucas MD Parkinson's disease [address] [facility] ([facility] ) (Primary Dx) [address] [place] [phone] (Wo rk) Social History Tobacco Use Types [...] Lucas MD - 09/01/2011 11:12 AM CDT [facility] Follow-up Examination [facility] [place] [address] , SUBJECTIVE: Chief Complaint Patient [...] today and updated on Health Profile in [facility]. Current outpatient prescriptions ordered prior to encounter [...] daily (every 24 hours). 90 3 ??? Whsxy-5-EYY-EPA-Fish Oil 805-1,000 mg Cap Take 1 capsule [...] copy of note to: Dr. Prakash Pérez, [facility], [address] [place] [address] Parris Lucas MD 10:55 AM 09/01/2011 documented in this encounter Plan of Treatment Upcoming Encounters Date Type Specialty Care Team Description 06/08/2022 Appointment Neurology Parris Lucas MD 3931 [facility] [address] [facility] N [address] (Wo rk) documented as of this encounter Visit Diagnoses Diagnosis Parkinson's disease (HRC) - Primary documented in this encounter Care Teams Carburetor Expert Relationship Specialty Start Date End Date Unassigned, Provider PCP - General 03/13/00 03/16/14 [address] [place] [address] documented as of this encounter
--- OUTSIDE RECORDS SUMMARY | 2021-12-18 19:25 | XMS_ITS | Encounter Summary ---
:1955 Author Organization [employer] Address [address] [place] [address] Care Team Providers Name Role Phone Unassigned, Provider Primary Care Provider Unavailable Reason for Visit Reason Comments Phone Call Encounter Details Date Type Department Care Team Description 02/03/2012 Telephone [facility] Chelsie Toribio RN Phone Call [address] [place], [place] [address] Social History Tobacco Use Types Packs/Day Years Used Date Smoking Tobacco: Never Assessed Sex Assigned at Date Recorded Not on file documented as of this encounter Nursing Notes Parris Lucas MD - 02/06/2012 5:00 PM CST ok, thanks CONTROL CHEMICAL TECHNICIAN Tiera Kaur RN - 02/06/2012 4:02 PM [...] but wanted us to have the information. CONTROL CHEMICAL TECHNICIAN Chelsie Toribio, RN - 02/03/2012 4:59 PM CST Darlene's daugher, Rosina called and LM stating she wanted to talk with Dr. Lucas before appt next week. Called and LM asking Rosina to give us a call to discuss. documented in this encounter Plan of Treatment Upcoming Encounters Date Type Specialty Care Team Description 06/08/2022 Appointment Neurology Parris Lucas MD 7852 [facility] [address] [facility] [id number] (Wo rk) documented as of this encounter Visit Diagnoses Not on filedocumented in this encounter Care Teams Preventative Maintenance Technician Relationship Specialty Start Date End Date Unassigned, Provider PCP - General 03/13/00 03/16/[address] [place] [address] documented as of this encounter
--- OUTSIDE RECORDS SUMMARY | 2021-12-18 19:26 | XMS_ITS | Encounter Summary ---
:1955 Author Organization [facility] Address [address] [place] [address] Care Team Providers Name Role Phone Unassigned, Provider Primary Care Provider Unavailable Encounter Details Date Type Department Care Team Description 03/03/2009 Hospital Encounter [facility] Gaby Hurst [address] [place] [address] Social History Tobacco Use Types Packs/Day Years [...] treat for exercise program for Parkinson's disease ll-wsmlcsviot-nfftvmwlsy Take 1 tablet by 90 3 12/1808/13/2010 [...] Lucas MD - 03/03/2009 12:01 AM CST [facility] Follow-up Examination SUBJECTIVE Current concerns and update : This 53-year-old patient returns to [facility] for follow-up of her Parkinson's disease. [...] to address her GI concerns with her department store general manager or a GI specialist. Parkinson's would only [...] minutes of discussion CC: Dr. Prakash Pérez. [facility], [address] [place] [address] *SH~DNS~PEM RICT SALES MANAGER documented in this encounter Plan of Treatment Upcoming Encounters Date Type Specialty Care Team Description 06/08/2022 Appointment Neurology Parris Lucas MD [address] [place] [address] [place] N [address] (Wo rk) documented as of this encounter Visit Diagnoses Not on filedocumented in this encounter Care Teams Desktop Support Technician Relationship Specialty Start Date End Date Unassigned, Provider PCP - General 03/13/00 03/16/[address] [place] [address] documented as of this encounter
--- OUTSIDE RECORDS SUMMARY | 2021-12-18 19:26 | XMS_ITS | Encounter Summary ---
:1955 Author Organization [facility] Address [address] [place] [address] Care Team Providers Name Role Phone Unassigned, Provider Primary Care Provider Unavailable Reason for Visit Reason Comments Other Encounter Details Date Type Department Care Team Description 08/12/2010 Telephone CONV NEUROLOGY Africa Lucas MD Other [address] [place] SH[address] Ro[address] D [address] [place] [address] [address] [facility] [address] (Wo rk) Social History Tobacco Use Types Packs/Day Years Used Date Smoking Tobacco: Never Assessed Sex Assigned at Date Recorded Not on file documented as of this encounter Progress Notes Darío Smith RN - 08/12/2010 12:08 PM CDT Phone Note filed by Darío Smith RN at 08/13/10 5912 Author: Darío Smith RN Service: (none) Author Type: Registered Nurse Filed: 08/13/10 793 Note Time: 08/12/10 1208 Status: Addendum [facility] Director: Darío Smith RN (Registered Nurse) Related Notes: Original Note by Imr Tariq (Physician) filed at 08/13/10 4871 Received message from patient [phone] asking that take over prescribing her Foltx that was previously handeled by [facility]. Did not leave a pharmacy number, will [...] day supply [facility] [place]. [facility] [place] as in last word . Acknowledged by DANIELA ZAPATA on 3:42pm [employer]ET[employer] documented in this encounter Plan of Treatment Upcoming Encounters Date Type Specialty Care Team Description 06/08/2022 Appointment Neurology Africa Lucas MD 3935 [facility] [address] [place] N [address] (Wo rk) documented as of this encounter Visit Diagnoses Not on filedocumented in this encounter Care Teams Tunnel Miner Relationship Specialty Start Date End Date Unassigned, Provider PCP - General 03/13/00 03/16/[address] [place] [address] documented as of this encounter
--- OUTSIDE RECORDS SUMMARY | 2021-12-18 19:26 | XMS_ITS | Encounter Summary ---
:1955 Author Organization [facility] Address [address] [place] [address] Care Team Providers Name Role Phone Unassigned, Provider Primary Care Provider Unavailable Reason for Visit Reason Comments Recheck Encounter Details Date Type Department Care Team Description 10/08/2010 Office Visit [facility] Parris Lucas MD Parkinson's disease [facility] [place] ([facility] ) (Primary Dx) [address] [place] [phone] (Wo rk) Social History Tobacco Use Types [...] Lucas MD - 10/08/2010 9:53 AM CDT [facility] Follow-up Examination SUBJECTIVE Current concerns and update: returns for followup. She is now taking sinemet 25/100 2.5 pills at 0-62-7-6-10-2, and a CR sinemet 50/200 during the night. She is exercising, on disability now. Managing household affairs [place]. Past Medical History Update: No past medical history on file. Adverse Drug Reactions: Allergies Allergen Reactions ??? Penicillins LW Reaction: Fever Current Medications: Reviewed today and updated on Health Profile in [facility]. Current outpatient prescriptions ordered prior to [...] work: disability; driving: no concerns ; financial planner: no concerns; falls: no device needed Review [...] note to: Dr. Prakash Pérez, [facility], [address] [place] [address] Daniela Prakash RN - 10/08/2010 8:46 AM CDT NPF Registry today. Cognition: Recall 5/5, delay 4/5 Animal naming 12 + Exercise 3 hours a week. documented in this encounter Plan of Treatment Upcoming Encounters Date Type Specialty Care Team Description 06/08/2022 Appointment Neurology Parris Lucas MD 7753 [facility] [address] [place] [address] (Wo rk) documented as of this encounter Visit Diagnoses Diagnosis Parkinson's disease (HRC) - Primary documented in this encounter Care Teams Blow Molding Machine Operator Relationship Specialty Start Date End Date Unassigned, Provider PCP - General 03/13/00 03/16/14 [address] [place] [address] documented as of this encounter
--- OUTSIDE RECORDS SUMMARY | 2021-12-18 19:26 | XMS_ITS | Encounter Summary ---
:1955 Author Organization [employer] Address [address] [place] [address] Care Team Providers Name Role Phone Unassigned, Provider Primary Care Provider Unavailable Reason for Visit Reason Comments Other Encounter Details Date Type Department Care Team Description 07/09/2010 Telephone [facility] NE[facility]OLOGY Antonio Dennis MD Other [address] [facility] [address] [place] [address] [address] [place] [address] (Wo rk) Social History Tobacco [...] 07/12/101720 Note Time: 07/09/10 1329 Status: Addendum Hotel Reservation Agent: Daniela Zapata RN (Registered Nurse) Related Notes: Original Note by Tunde Potter (Physician) filed at 07/12/10 172 RVM from patient after cancelling her scheduled appt.today. States she went back to old way she was taking her medications. Sinemet 25/100 2.5 tablets five times a day. Attempted to call back to discuss, no answer and no voicemail to leave a message. [phone]. Created on 09Jul2010 1:29pm by DANIELA ZAPATA On 12Jul2010 8:50am ANTONIO DENNIS wrote: I think this message was meant for you Africa ovalles Acknowledged by ANTONIO DENNIS on 8:50am Acknowledged by AFRICA LUCAS on 9:40am ECTION SYSTEMS MODELER documented in this encounter Plan of Treatment Upcoming Encounters Date Type Specialty Care Team Description 06/08/2022 Appointment Neurology Africa Lucas MD 3935 [facility] [address] [facility] [address] (Wo rk) documented as of this encounter Visit Diagnoses Not on filedocumented in this encounter Care Teams Inventory Controller Relationship Specialty Start Date End Date Unassigned, Provider PCP - General 03/13/00 03/16/[address] [place] [address] documented as of this encounter
--- OUTSIDE RECORDS SUMMARY | 2021-12-18 19:26 | XMS_ITS | Encounter Summary ---
:1955 Author Organization [facility] Address [address] [place] [address] Care Team Providers Name Role Phone Unassigned, Provider Primary Care Provider Unavailable Encounter Details Date Type Department Care Team Description 11/12/2009 Hospital Encounter CONV METH PKDS[facility] Sarah Celeste MA [address] [place] [address] Social History Tobacco Use Types Packs/Day Years [...] treat for exercise program for Parkinson's disease vy-yulbbuhgqx-nqyzbynvxub Take 1 tablet by 90 3 12/0408/13/2010 [...] Lucas MD - 11/12/2009 12:01 AM CDT [facility] [place] Follow-up Examination SUBJECTIVE Current concerns and update : This 54-year-old patient returns to [place] [facility] [place] for follow-up of her Parkinson's disease. I [...] progression, work issues. CC: Dr. Prakash Pérez. [facility], [address] [place] [address] *SH~DNS~PEM documented in this encounter Plan of Treatment Upcoming Encounters Date Type Specialty Care Team Description 06/08/2022 Appointment Neurology Parris Lucas MD 3931 [facility] [address] [facility] N [address] (Wo rk) documented as of this encounter Visit Diagnoses Not on filedocumented in this encounter Care Teams Stocking Inspector Relationship Specialty Start Date End Date Unassigned, Provider PCP - General 03/13/00 03/16/[address] [place] [address] documented as of this encounter
--- OUTSIDE RECORDS SUMMARY | 2021-12-18 19:26 | XMS_ITS | Encounter Summary ---
:1955 Author Organization [facility] Address [address] [place] [address] Care Team Providers Name Role Phone Unassigned, Provider Primary Care Provider Unavailable Reason for Visit Reason Comments Other Encounter Details Date Type Department Care Team Description 10/12/2009 Telephone CONV NEUROLOGY Africa Lucas MD Other [address] [place] [address] Rojas D [address] [place] [address] [address] [facility] [address] (Wo rk) Social History Tobacco Use Types Packs/Day Years Used Date Smoking Tobacco: Never Assessed Sex Assigned at Date Recorded Not on file documented as of this encounter Progress Notes Darío Smith RN - 10/12/2009 9:52 AM CDT Phone Note filed by Darío Smith RN at 06/26/10 5860 Author: Darío Smith RN Service: (none) Author Type: Registered Nurse Filed: 06/26/10 143 Note Time: 10/12/09951 Status: Signed Direct Selling Counselor: Darío Smith RN (Registered Nurse) Called she [...] some guidance from her upon her return. [phone]. Created on 12Oct2009 9:52am by DARÍO SMITH Acknowledged by AFRICA LUCAS on 11:47am E/MATERIALS EXCHANGE SPECIALIST documented in this encounter Plan of Treatment Upcoming Encounters Date Type Specialty Care Team Description 06/08/2022 Appointment Neurology Africa Lucas MD 3931 [facility] [address] [facility] [address] (Wo rk) documented as of this encounter Visit Diagnoses Not on filedocumented in this encounter Care Teams Die Casting Machine Setter Relationship Specialty Start Date End Date Unassigned, Provider PCP - General 03/13/00 03/16/[address] [place] [address] documented as of this encounter
--- OUTSIDE RECORDS SUMMARY | 2021-12-18 19:26 | XMS_ITS | Encounter Summary ---
:1955 Author Organization [facility] Address [address] [place] [address] Care Team Providers Name Role Phone Unassigned, Provider Primary Care Provider Unavailable Encounter Details Date Type Department Care Team Description 04/28/2010 Hospital Encounter CONV METH PKDSV Sarah Celeste MA [address] [place] [address] Social History Tobacco Use Types Packs/Day Years [...] treat for exercise program for Parkinson's disease gm-onvxpozyrj-lerdytijkwl Take 1 tablet by 90 3 12/0408/13/2010 [...] 12:01 AM CST NAME: DARLENE DREW MR#: [id number] ACCT: [id number] VISIT: [id number] DICTATING CLINICIAN: Parris Lucas MD CONFIRM #: [id number] LOC: 223 CLINIC PROGRESS NOTE DATE OF VISIT: 04/28/2010 : 1955 This 54-year-old patient returns to [facility] for followup of her Parkinson's [...] this new schedule is working. I did international student counselor her to take her pills on [...] minutes of discussion. MAN:MEDQ C: CONFIRM #: [id number] OGRAPHIC RETOUCHER APPRENTICE documented in this encounter Plan of Treatment Upcoming Encounters Date Type Specialty Care Team Description 06/08/2022 Appointment Neurology Parris Lucas MD [address] [facility] [address] [facility] N [address] (Wo rk) documented as of this encounter Visit Diagnoses Not on filedocumented in this encounter Care Teams Induction Furnace Operator Relationship Specialty Start Date End Date Unassigned, Provider PCP - General 03/13/00 03/16/14 [address] [place] [address] documented as of this encounter
--- OUTSIDE RECORDS SUMMARY | 2021-12-18 19:26 | XMS_ITS | Encounter Summary ---
:1955 Author Organization [facility] Address [address] [place] [address] Care Team Providers Name Role Phone Unassigned, Provider Primary Care Provider Unavailable Encounter Details Date Type Department Care Team Description 08/26/2009 PN Conversion Only CONV NEUROLOGY Parris Lucas MD 3850 [facility] 3931 [facility] [address] [place] [phone] (Wo rk) Social History Tobacco Use Types Packs/Day Years Used Date Smoking Tobacco: Never Assessed Sex Assigned at Date Recorded Not on file documented as of this encounter Plan of Treatment Upcoming Encounters Date Type Specialty Care Team Description 06/08/2022 Appointment Neurology Parris Lucas MD 3931 [facility] [address] [facility] N [address] (Wo rk) documented as of this encounter Visit Diagnoses Not on filedocumented in this encounter Care Teams Director Of Partner Marketing Relationship Specialty Start Date End Date Unassigned, Provider PCP - General 03/13/00 03/16/14 640 [place] [address] documented as of this encounter
--- OUTSIDE RECORDS SUMMARY | 2021-12-18 19:26 | XMS_ITS | Encounter Summary ---
:1955 Author Organization [facility] Address [address] [place] [address] Care Team Providers Name Role Phone Unassigned, Provider Primary Care Provider Unavailable Reason for Visit Reason Comments Other Encounter Details Date Type Department Care Team Description 03/16/2010 Telephone CONV NEUROLOGY Isabelle Hurst Other [address] [place] [address] Social History Tobacco Use Types Packs/Day Years Used Date Smoking Tobacco: Never Assessed Sex Assigned at Date Recorded Not on file documented as of this encounter Progress Notes Conversion, Imr - 03/16/2010 3:28 PM CST Refill request for sinemet 25-100 take 2.5 tabs 3-4x/day per pt qty 900 with 3 refills needed [facility] @ [phone]. Created on 16Mar2010 3:28pm by ISABELLE HURST On 17Mar2010 6:37am AFRICA LUCAS wrote: ok to refill as described Acknowledged by AFRICA LUCAS on 6:37am On 17Mar2010 8:22am ISABELLE HURST wrote: called as described above. Acknowledged by ISABELLE HURST on 8:22am BLEACHER documented in this encounter Plan of Treatment Upcoming Encounters Date Type Specialty Care Team Description 06/08/2022 Appointment Neurology Africa Lucas MD 393 [facility] [address] [facility] [address] (Wo rk) documented as of this encounter Visit Diagnoses Not on filedocumented in this encounter Care Teams Crm System Administrator Relationship Specialty Start Date End Date Unassigned, Provider PCP - General 03/13/00 03/16/[address] [place] [address] documented as of this encounter
--- OUTSIDE RECORDS SUMMARY | 2021-12-18 19:26 | XMS_ITS | Encounter Summary ---
:1955 Author Organization [facility] Address [address] [place] [address] Care Team Providers Name Role Phone Unassigned, Provider Primary Care Provider Unavailable Encounter Details Date Type Department Care Team Description 09/17/2010 Notes/Orders [place] [facility] Parris Lucas MD [address] [place], [place] [address] [address] [facility] N [phone] (Wo rk) Social History Tobacco Use Types Packs/Day Years Used Date Smoking Tobacco: Never Assessed Sex Assigned at Date Recorded Not on file documented as of this encounter Plan of Treatment Upcoming Encounters Date Type Specialty Care Team Description 06/08/2022 Appointment Neurology Parris Lucas MD 3937 [facility] [address] [facility] N [phone] (Wo rk) documented as of this encounter Visit Diagnoses Not on filedocumented in this encounter Care Teams Cross Tie Turner Relationship Specialty Start Date End Date Unassigned, Provider PCP - General 03/13/00 03/16/[address] [place] [address] documented as of this encounter
--- OUTSIDE RECORDS SUMMARY | 2021-12-18 19:26 | XMS_ITS | Encounter Summary ---
:1955 Author Organization [facility] Address [address] [place] [address] Care Team Providers Name Role Phone Unassigned, Provider Primary Care Provider Unavailable Encounter Details Date Type Department Care Team Description 04/26/2010 Hospital Encounter RASTAFARIAN CONVERSION Jeanmarie Lucas MD 3931 [facility] [address] [place], [place] [address] (Wo rk) Social History Tobacco Use Types [...] treat for exercise program for Parkinson's disease xx-zaphqdjsgh-qystkryvnse Take 1 tablet by 90 3 12/0408/13/2010 [...] Description 06/08/2022 Appointment Neurology Parris Lucas MD 84[address] [facility] [address] [facility] [address] (Wo rk) documented as of this encounter Visit Diagnoses Not on filedocumented in this encounter Care Teams Adult Protective Caseworker Relationship Specialty Start Date End Date Unassigned, Provider PCP - General 03/13/00 03/16/[address] [place] [address] documented as of this encounter
--- OUTSIDE RECORDS SUMMARY | 2021-12-18 19:26 | XMS_ITS | Encounter Summary ---
:1955 Author Organization [facility] Address [address] [place] [address] Care Team Providers Name Role Phone Unassigned, [...] MD 3931 [facility] [address] [facility] N [address] (Wo rk) documented as of this encounter Visit Diagnoses Not on filedocumented in this encounter Care Teams Tree Farmer Relationship Specialty Start Date End Date Unassigned, Provider PCP - General 03/13/00 03/16/[address] [place] [address] documented as of this encounter
--- OUTSIDE RECORDS SUMMARY | 2021-12-18 19:26 | XMS_ITS | Encounter Summary ---
:1955 Author Organization [facility] Address [address] [place] [address] Care Team Providers Name Role Phone Unassigned, Provider Primary Care Provider Unavailable Reason for Visit Reason Comments Other Encounter Details Date Type Department Care Team Description 11/13/2009 Telephone Specialty [facility] 393 1 Neurology Isabelle Hurst Other [address] [place], [place] [address] Social History Tobacco Use Types Packs/Day Years Used Date Smoking Tobacco: Never Assessed Sex Assigned at Date Recorded Not on file documented as of this encounter Progress Notes Africa Lucas MD - 11/13/2009 7:38 AM CDT Phone Note filed by Africa Lucas MD at 06/26/101721 Author: Africa Lucas MD Service: (none) Author Type: Physician Filed: 06/26/101721 Note Time: 11/13/09737 Status: Signed Qa Consultant: Africa Lucas MD (Physician) Breanna Griffin send pt a copy of her note from today's clinic visit, thanks. Created on 13Nov2009 7:38am by AFRICA LUCAS On 13Nov2009 1:14pm ISABELLE HURST wrote: done. Acknowledged by ISABELLE HURST on 1:14pm LATHER documented in this encounter Plan of Treatment Upcoming Encounters Date Type Specialty Care Team Description 06/08/2022 Appointment Neurology Africa Lucas MD 3938 [facility] [address] [facility] [address] (Wo rk) documented as of this encounter Visit Diagnoses Not on filedocumented in this encounter Care Teams Scanning Coordinator Relationship Specialty Start Date End Date Unassigned, Provider PCP - General 03/13/00 03/16/[address] [place] [address] documented as of this encounter
--- OUTSIDE RECORDS SUMMARY | 2021-12-18 19:26 | XMS_ITS | Encounter Summary ---
:1955 Author [facility] Address [address] [place] [address] Care Team Providers Name Role Phone Unassigned, Provider Primary Care Provider Unavailable Reason for Visit Reason Comments Other Encounter Details Date Type Department Care Team Description 08/16/2010 Telephone CONV NEUROLOGY Africa Lucas MD Other [address] [place] [address] [address] [facility] [address] (Wo rk) Social History Tobacco Use Types Packs/Day Years Used Date Smoking Tobacco: Never Assessed Sex Assigned at Date Recorded Not on file documented as of this encounter Progress Notes Darío Smith RN - 08/16/2010 4:15 PM CDT Phone Note filed by Darío Smith RN at 08/18/10 7696 Author: Darío Smith RN Service: (none) Author Type: Registered Nurse Filed: 08/18/101134 Note Time: 08/16/10 161 Status: Addendum Inking Machine Tender: Darío Smith RN (Registered Nurse) Related Notes: Original Note by Tunde Potter (Physician) filed at 08/18/10 9059 Darlene called [phone], said she faxed you some paperwork last [...] LUCAS on 9:36am On 18Aug2010 11:31am ALEJANDRA ZPAATA wrote: Disability paperwork mailed to home address as requested by patient. R CLIMBER documented in this encounter Plan of Treatment Upcoming Encounters Date Type Specialty Care Team Description 06/08/2022 Appointment Neurology Africa Lucas MD [address] [place] [address] (Wo rk) documented as of this encounter Visit Diagnoses Not on filedocumented in this encounter Care Teams Assistant Curator Relationship Specialty Start Date End Date Unassigned, Provider PCP - General 03/13/00 03/16/14 [address] [place] [address] documented as of this encounter
--- OUTSIDE RECORDS SUMMARY | 2021-12-18 19:26 | XMS_ITS | Encounter Summary ---
:1955 Author Organization [facility] Address [address] [place] [address] Care Team Providers Name Role Phone Unassigned, Provider Primary Care Provider Unavailable Encounter Details Date Type Department Care Team Description 04/28/2010 PN Conversion Only CONV NEUROLOGY Parris Lucas MD [address] [facility] [address] [facility] [address] [place] [phone] (Wo rk) Social History Tobacco Use Types Packs/Day Years Used Date Smoking Tobacco: Never Assessed Sex Assigned at Date Recorded Not on file documented as of this encounter Plan of Treatment Upcoming Encounters Date Type Specialty Care Team Description 06/08/2022 Appointment Neurology Parris Lucas MD [address] [facility] [address] [facility] N [address] (Wo rk) documented as of this encounter Visit Diagnoses Not on filedocumented in this encounter Care Teams Furniture Crater Relationship Specialty Start Date End Date Unassigned, Provider PCP - General 03/13/00 03/16/14 [address] [place] [address] documented as of this encounter
--- OUTSIDE RECORDS SUMMARY | 2021-12-18 19:26 | XMS_ITS | Encounter Summary ---
:1955 Author Organization [facility] Address [address] [place] [address] Care Team Providers Name Role Phone Unassigned, Provider Primary Care Provider Unavailable Encounter Details Date Type Department Care Team Description 08/26/2009 Hospital Encounter CONV [facility] Sarah Celeste MA [address] [place] [place] [address] Social History Tobacco Use Types Packs/Day Years [...] treat for exercise program for Parkinson's disease ia-zlqsvmtlxi-uhalfjmfzjt Take 1 tablet by 90 3 12/0408/13/2010 [...] Lucas MD - 08/26/2009 12:01 AM CDT [facility] [place] Follow-up Examination SUBJECTIVE Current concerns and update : This 54-year-old patient returns to [facility] [place] for follow-up of her Parkinson's disease. I [...] medications, symptoms, alternatives. CC: Dr. Prakash Pérez. [facility], [address] [place] [address] *SH~DNS~PEM documented in this encounter Plan of Treatment Upcoming Encounters Date Type Specialty Care Team Description 06/08/2022 Appointment Neurology Parris Lucas MD [address] [facility] [address] [place] [address] [address] (Wo rk) documented as of this encounter Visit Diagnoses Not on filedocumented in this encounter Care Teams Review Specialist Relationship Specialty Start Date End Date Unassigned, Provider PCP - General 03/13/00 03/16/[address] [place] [address] documented as of this encounter
--- OUTSIDE RECORDS SUMMARY | 2021-12-18 19:26 | XMS_ITS | Encounter Summary ---
:1955 Author Organization [facility] Address [address] [place] [address] Care Team Providers Name Role Phone Unassigned, Provider Primary Care Provider Unavailable Encounter Details Date Type Department Care Team Description 11/11/2009 PN Conversion Only WORSHIP CONVERSION Social History Tobacco Use Types Packs/Day Years Used Date Smoking Tobacco: Never Assessed Sex Assigned at Date Recorded Not on file documented as of this encounter Plan of Treatment Upcoming Encounters Date Type Specialty Care Team Description 06/08/2022 Appointment Neurology Parris Lucas MD [address] [facility] [address] [facility] N [address] (Wo rk) documented as of this encounter Visit Diagnoses Not on filedocumented in this encounter Care Teams Bank Credit Card Collection Clerk Relationship Specialty Start Date End Date Unassigned, Provider PCP - General 03/13/00 03/16/[address] [place] [phone] documented as of this encounter
--- OUTSIDE RECORDS SUMMARY | 2021-12-18 19:26 | XMS_ITS | Encounter Summary ---
:1955 Author Organization [facility] Address [address] [place] [address] Care Team Providers Name Role Phone Unassigned, Provider Primary Care Provider Unavailable Encounter Details Date Type Department Care Team Description 07/09/2010 Hospital Encounter [facility] CONVERSION Jeanmarie Lucas MD [address] [facility] [address] [place], [place] [phone] (Wo rk) Social History Tobacco Use Types [...] treat for exercise program for Parkinson's disease mr-mcpxcymakl-xjpuhlnmaom Take 1 tablet by 90 3 12/0408/13/2010 [...] D2) 400 UNITS TABS (every 24 hours). of-vqudtljlny-wkacobkvrjb Take 1 tablet by 90 3 08/0409/09/2011 [...] 06/08/2022 Appointment Neurology Parris Lucas MD [address] [facility] [address] [facility] [address] (Wo rk) documented as of this encounter Visit Diagnoses Not on filedocumented in this encounter Care Teams Dispensing Optician Relationship Specialty Start Date End Date Unassigned, Provider PCP - General 03/13/00 03/16/[address] [place] [address] documented as of this encounter
--- OUTSIDE RECORDS SUMMARY | 2021-12-18 19:26 | XMS_ITS | Encounter Summary ---
:1955 Author Organization [facility] Address [address] [place] [address] Care Team Providers Name Role Phone Unassigned, Provider Primary Care Provider Unavailable Encounter Details Date Type Department Care Team Description 11/12/2009 PN Conversion Only CONV NEUROLOGY Parris Lucas MD [address] [facility] 39[address] [facility] [address] [place] [phone] (Wo rk) Social History Tobacco Use Types Packs/Day Years Used Date Smoking Tobacco: Never Assessed Sex Assigned at Date Recorded Not on file documented as of this encounter Plan of Treatment Upcoming Encounters Date Type Specialty Care Team Description 06/08/2022 Appointment Neurology Parris Lucas MD 3931 [facility] [address] [facility] N [address] (Wo rk) documented as of this encounter Visit Diagnoses Not on filedocumented in this encounter Care Teams Latex Caster Relationship Specialty Start Date End Date Unassigned, Provider PCP - General 03/13/00 03/16/14 [address] [place] [address] documented as of this encounter
--- OUTSIDE RECORDS SUMMARY | 2021-12-18 19:27 | XMS_ITS | Clinical Summary ---
:1955 Author Organization [facility] [employer] [facility] [facility] [place] [address] Care Team Providers Name Role Phone Helen [...] mg tablet mouth at bedtime if needed. ulvvxufug-wihoxhxu-pillv Take 1 tablet by 0 Active apone, [...] mg cap Active Problems Not on file Encounters Date Type Specialty Care Team Description 12/16/2021 Telephone Priya Castro MD Ap pointment Request from Last 3 Months Family History Medical History Relation Name Comments [...] Comments Blood Pressure 112/77 03/01/2016 11:14 AM SLATE MIXER Pulse 77 03/01/2016 11:14 AM SLATE MIXER Temperature 36.8 ??C (98.2 ??F) 03/01/2016 11:14 AM SLATE MIXER Respiratory Rate 18 03/01/2016 11:14 AM SLATE MIXER Oxygen Saturation 100% 10/21/2015 10:44 AM CDT Inhaled Oxygen Concentration - - Weight 68.4 kg (150 lb 14.4 oz) 03/01/2016 11:14 AM SLATE MIXER Height 172.7 cm (5' 8) 03/01/2016 11:14 AM SLATE MIXER Body Mass Index 22.94 03/01/2016 11:14 AM SLATE MIXER Plan of Treatment Upcoming Encounters Date Type Specialty Care Team Description 12/20/2021 Office Visit Josefa Brown PA [address] [place] [address] (Wo rk) 12/22/2021 Office Visit Josefa Brown PA [address] [place] [address] (Wo rk) Health Maintenance Due Date Last [...] Group MEDICARE PART A MEDICARE PART A [id number] 2012-Presen ATTN: CLAIMS - HB USE ONLY HB ONLY t [address] [place] [address] MEDICARE PART B MEDICARE PART B [id number] 2015-Presen ATTN: CLAIMS - HB USE ONLY HB ONLY t [address] [place] [address] BLUE CROSS BLUE CROSS OF [id number] 2016-Presen [address] [place] [address] [address] (Home) [address] [place] [phone] Advance Directives Latest Code Status on File Code Status Date Activated Date Inactivated Comments Full Code 04/09/2015 8:35 AM 04/09/2015 4:46 PM Care Teams Children'S Author Relationship Specialty Start Date End Date Jesse Norton MD PCP - General Family Practice 05/05/16 Helen Araujo MD Surgery - General 03/26/15
--- OUTSIDE RECORDS SUMMARY | 2021-12-18 19:27 | XMS_ITS | Encounter Summary ---
:1955 Author Organization [facility] Address [address] [place] [address] Care Team Providers Name Role Phone Unassigned, Provider Primary Care Provider Unavailable Encounter Details Date Type Department Care Team Description 12/16/2008 PN Conversion Only [place] [facility] [address] [place] [address] Social History Tobacco Use Types Packs/Day Years Used Date Smoking Tobacco: Never Assessed Sex Assigned at Date Recorded Not on file documented as of this encounter Plan of Treatment Upcoming Encounters Date Type Specialty Care Team Description 06/08/2022 Appointment Neurology Parris Lucas MD 39[address] [facility] [address] [facility] N [phone] (Wo rk) documented as of this encounter Visit Diagnoses Not on filedocumented in this encounter Care Teams Procedures Rn Relationship Specialty Start Date End Date Unassigned, Provider PCP - General 03/13/00 03/16/[address] [place] [address] documented as of this encounter
--- OUTSIDE RECORDS SUMMARY | 2021-12-18 19:27 | XMS_ITS | Encounter Summary ---
:1955 Author Organization [facility] Address [address] [place] [address] Care Team Providers Name Role Phone Elsewhere, Pcp Primary Care Provider Unavailable Reason for Referral Outpatient (Routine) - Closed Specialty Diagnoses / Procedures Referred By Contact Refer red To Contact Diagnoses Pain Shoulder Right Sharad Velazquez M.D. [facility] Region Procedures DX Shoulder Right 2+ Views [address] [place] [address] Referral ID Status Reason Start Date Expiration Date Visits Requ ested Visits Authorized [id number] Closed 11/26/2021 11/26/2022 1 1 Reason for Visit Outpatient (Routine) - Closed Specialty Diagnoses / Procedures Referred By Contact Refer red To Contact Diagnoses Pain Shoulder Right Sharad Velazquez M.D. [facility] Region Procedures DX Shoulder Right 2+ Views [address] [place] [address] Referral ID Status Reason Start Date Expiration Date Visits Requ ested Visits Authorized [id number] Closed 11/26/2021 11/26/2022 1 1 Encounter Details Date Type Department Care Team Description 11/26/2021 Hospital Encounter Department of Steven Velazquez ulangelo Right Radiology, [facility], in [address] [place] [address] [place], [place] [phone] (Work) [phone] Social History Tobacco Use Types Packs/Day Years [...] mouth daily. Take at tablet 5 PM bgnempxkd-tverbxre-zakgzgh Take 1 tablet by 0 one (STALEVO) [...] Right documented in this encounter Care Teams Etiologist Relationship Specialty Start Date End Date Elsewhere, Pcp PCP - General Cable Braider 03/20/19 documented as of this encounter
--- OUTSIDE RECORDS SUMMARY | 2021-12-18 19:27 | XMS_ITS | Encounter Summary ---
:1955 Author Organization [facility] Address [address] [place] [address] Care Team Providers Name Role Phone Elsewhere, Pcp Primary Care Provider Unavailable Reason for Referral Outpatient (Routine) - Authorized Specialty Diagnoses / Procedures Referred By Contact Refer red To Contact Diagnoses Primary Osteoarthritis Knee Right Sharad Velazquez M.D. [facility] Region Procedures fop-pcrs-mswyjsvi-elbow arthrocentesis [address] [place] [address] Referral ID Status Reason Start Date Expiration Date Visits V isits Requested Authorized [id number] Authorized 06/04/2021 06/04/2022 1 1 Outpatient (Routine) - Closed Specialty Diagnoses / Procedures Referred By Contact Refer red To Contact Diagnoses Pain Knee Right Sharad Velazquez M.D. [facility] Region Procedures DX Knee Right 4+ Views [address] [place] [address] Referral ID Status Reason Start Date Expiration Date Visits Requ ested Visits Authorized [id number] Closed 06/04/2021 06/04/2022 1 1 Reason for Visit Reason Comments Consult R knee pain Encounter Details Date Type Department Care Team Description 06/04/2021 Comprehensive Visit Department of Steven Velazquez Kn ee Right (Primary Dx); Orthopedic Surgery Yareli Orourke Primary Osteoarthritis Knee Right in [place], [address] [facility], [address] [facility] [address] [place], [place] [phone] (Work) [phone] Social History Tobacco Use Types Packs/Day Years [...] M.D. - 06/04/2021 12:30 PM CDTAssociated Order(s): dzt-cerg-xfzmglpi-elbow arthrocentesis Post-Procedure Diagnose(s): Primary Osteoarthritis Knee Right [...] views. She has advanced valgus osteoarthritis, is vaqz-zn-lkft in the lateral compartment, where there also [...] results section. documented in this encounter Results dlw-dpkz-ishjiqvk-elbow arthrocentesis (06/04/2021 3:00 PM CDT) Narrative MMODAL - 06/04/2021 3:00 PM CDT Sharad Velazquez M.D. ? 06/04/2021 ??3:01 PM : injection only Date/Time: 06/04/2021 3:00 PM Performed by: Sharad Velazquez M.D. Authorized by: Sharad Velazquez M.D. PROCEDURE DETAILS Procedure Location e e [...] dose documented in this encounter Care Teams Butcher All Round Relationship Specialty Start Date End Date Elsewhere, Pcp PCP - General Bowling Floor Manager 03/20/19 documented as of this encounter
--- OUTSIDE RECORDS SUMMARY | 2021-12-18 19:27 | XMS_ITS | Encounter Summary ---
:1955 Author Organization [facility] Address [address] [place] [address] Care Team Providers Name Role Phone Unassigned, Provider Primary Care Provider Unavailable Encounter Details Date Type Department Care Team Description 12/18/2008 Therapy CONV METH PKDSV Kimberly Mcbride, CONTROL PANEL ASSEMBLER [address] [place] [address] [place] [address] (Wo rk) Social History Tobacco [...] 1713 Note Time: 12/18/08 0001 Status: Signed Automotive Service Assistant: Parris Lucas MD (Physician) Occupational Therapy Plan of Care: Certification/HCFA 700. Initial Certification Period: , 12/18/2008 to 01/15/09 Initial Status: Referring Physician: Dr. Parris Lucas. Primary Diagnosis: Parkinson's Disease (332.0). Reason for Referral: Assessment Clinic (Physical Therapist, Occupational Therapist, Speech and Language Pathologist, Stitch Separator, Registered Nurse, MD). 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 She is active [...] Wellness program. Interdisciplinary Referrals: Consult with social media job titles. Frequency/Duration: 1X visit. Estimated Discharge: 1 session. [...] under his/her care. Therapist Signature: SUDHA Arzola, [id number], 12/18/2008 *SH~REHAB~POC ~ Shorthand Note completed on: 12/18/2008 1:33 PM Yosvany Hidalgo OTR/L - 12/18/2008 12:01 AM CDT Progress Notes signed by JOSE Sinclair/Katrin at 01/04/09 1331 Author: Yosvany Dorsey OT Service: (none) Author Type: OCCUPATIONAL THERAPY REGISTERED/LICENSED Filed: 06/26/10 1713 Note Time: 12/18/08 0001 Status: Signed Automotive Service Assistant: Yosvany Dorsey OT (Resource) [facility] Occupational Therapy - Parkinson's Disease Evaluation Referring Physician: Dr. Parris Lucas. Primary Diagnosis: Parkinson's Disease (332.0). Reason for Referral: Assessment Clinic (Physical Therapist, Occupational Therapist, Speech and Language Pathologist, Stitch Separator, Registered Nurse, MD). Orders: Evaluate and treat. Time of Evaluation: 2:30 [facility] Services: Physical therapy. Speech therapy. RN. [...] home, all on 1 level. Living location: [facility]. Community Mobilities: Driving-unrestricted. Frequency of Outings: Leaves home on a daily basis. Leisure Activities: Yardwork. 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 OBJECTIVE: Hand Dominance: Right. Range of Motion: [...] Right upper extremity minimal impaired (4/5 grossly). 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 She is active [...] Wellness program. Interdisciplinary Referrals: Consult with social media job titles. Frequency/Duration: 1X visit. Estimated Discharge: 1 session. [...] of motion, in 1 session. TREATMENT TODAY Patient/senior hr business partner instructed in: Upper extremity strengthening/ROM exercise program trunk/neck stretches -Fine motor exercise program - home program for fine motor skills -Compensatory strategies/adaptive equipment for safely turning in bed and adjusting bedclothes using: Satin draw sheet. Verbal cuing. Optimal body mechanics. -Compensatory strategies/adaptive equipment for safe bed transfers using: Satin draw sheet. Optimal body mechanics. -Compensatory strategies/adaptive equipment for increased handwriting legibility using: Wide plant control operator pen. Lined paper. Aim big; write slowly. -Compensatory strategies/adaptive equipment for safe medication self management system using: Pill boxes. Medication timers. Resources Issued: -Exercise handouts. Source material for adaptive equipment. -Evaluation. -ADL/Self management. Response to treatment: Demonstrated comprehension of strategies and equipment use. Verbalized receptivity to recommendations. Procedures: Occupational Therapy Evaluation (CPT 19437) ADL/Self management (CPT 81607) 30 minutes TOTAL TREATMENT TIME: 60 minutes: 2 units eval = 30 min; 2 ADL = 30 min. minutes. Electronically signed by: SUDHA Arzola, [id number], 12/18/2008 *SH~REHAB~OTPARKIN ~ Shorthand Note completed on: 12/18/2008 1:31 PM Diann Gagnon PT - 12/18/2008 12:01 AM CDT Progress Notes signed by Diann Harden PT at 12/22/08 1410 Author: Diann Cunningham PT Service: (none) Author Type: Physical Therapist Filed: 06/26/10 1713 Note Time: 12/18/08 0001 Status: Signed Automotive Service Assistant: Diann Cunningham PT (Physical Therapist) Physical Therapy Parkinson Evaluation Referring Physician: Dr. Parris Lucas. Primary Diagnosis: Parkinson's Disease (332.0). Reason for Referral: Assessment Clinic (Physical Therapist, Occupational Therapist, Speech and Language Pathologist, Stitch Separator, Registered Nurse, MD). Orders: Evaluate and treat. Exacerbation Date: 12/04/2008 Last Referring MD Visit: 12/18/2008 SUBJECTIVE: Mobility Limitations Reported: Gait deficits. Balance/Falls in past 6 months (Average): None reported. Motor Fluctuations Reported: Yes. Pain Screen: No pain. Past Medical History: Refer to Electronic Medical Records for past medical history, medications, and adverse drug reactions. Support System: Lives with primary transition of care specialist. Family members in area check in frequently. Living Situation: Private home, more than 1 level. -[facility] -Living Environment: [place]uneven terrain, some surfaces [...] stride length. Procedures: Physical Therapy Evaluation (CPT 17534) Gait Training (CPT 26837) 20 minutes Therapeutic Exercise (CPT 70796) 10 minutes TOTAL TREATMENT TIME: 60 minutes. Electronically signed by: Diann Cunningham PT, 4551, 12/18/2008 *SH~REHAB~PTPARKEVA~ Shorthand Note completed on: 12/18/2008 2:09 PM Parris Lucas MD - 12/18/2008 12:01 AM CDT Progress Notes signed by Parris Lucas MD at 12/22/08 1436 Author: Parris Lucas MD Service: (none) Author Type: Physician Filed: 06/26/10 2373 Note Time: 12/18/08 0001 Status: Signed Automotive Service Assistant: Parris Lucas MD (Physician) Physical Therapy Plan of Care: Certification/FA 700. Initial Certification Period: , 12/18/2008 to 01/15/09 Initial Status: Physical Therapy Parkinson Evaluation Referring Physician: Dr. Parris Lucas. Primary Diagnosis: Parkinson's Disease (332.0). Reason for Referral: Assessment Clinic (Physical Therapist, Occupational Therapist, Speech and Language Pathologist, Stitch Separator, Registered Nurse, MD). Orders: Evaluate and treat. [...] his/her care. Therapist Signature: Diann Cunningham, PT, 3961, 12/18/2008 *SH~REHAB~POC ~ Shorthand Note completed on: 12/18/2008 2:12 PM Kimberly Mcbride SLP - 12/18/2008 12:01 AM CDT Progress Notes signed by Kimberly Mcbride at 12/18/08 1148 Author: TOAN Gonzalez Service: (none) Author Type: Speech and Language Pathologist Filed: 06/26/10 5355 Note Time: 12/18/08 0001 Status: Signed Automotive Service Assistant: TOAN Gonzalez (Resource) [facility] [place] Speech Pathology - Parkinson's Disease Evaluation Primary [...] Smoking: No. Education: High school. 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 Marital Status: . Living Arrangement: Lives with spouse. Safety in living environment: Patient feels safe in current living environment. Vulnerable adult assessment = low risk OBJECTIVE Behavioral Characteristics: Alert. Motivated. Cooperative. Anxious. Tests Administered: [facility] Assessment of Communication in Parkinson's Disease [...] One time evaluation and treatment only at [facility] [place]. Penitentiary goals: -Maximize speech and voice for functional [...] 60 minutes. Electronically signed by: Kimberly Mcbride MA/[facility]-CONTROL PANEL ASSEMBLER, 5063, 12/18/2008 *SH~REHAB~SPARKEVAL~ Shorthand Note Completed on: 12/18/2008 11:46 AM Parris Lucas MD - 12/18/2008 12:01 AM CDT Progress Notes signed by Parris Lucas MD at 12/18/08 0619 Author: Parris Lucas MD Service: (none) Author Type: Physician Filed: 04/23/11 1711 Note Time: 12/18/08 0001 Status: Signed Automotive Service Assistant: Parris Lucas MD (Physician) Speech Therapy Plan [...] One time evaluation and treatment only at [facility] [place]. Penitentiary goals: -Maximize speech and voice for functional [...] under his/her care. Therapist Signature: Kimberly Mcbride MA/[facility]-CONTROL PANEL ASSEMBLER, 5063, 12/18/2008 *SH~REHAB~POC ~ Shorthand Note completed [...] 1711 Note Time: 12/17/08 0001 Status: Signed Automotive Service Assistant: Parris Lucas MD (Physician) NAME: DARLENE DREW MR#: [id number] ACCT: VISIT: [id number] DICTATING CLINICIAN: Parris Lucas MD CONFIRM #: [id number] LOC: 223 CLINIC PROGRESS NOTE DATE OF [...] seen, and I think followed through the [facility] Neurology group and has seen Dr. Graham. 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 Her works for the [employer]. She has a daughter who [...] in 2 months. CC: Dr. Prakash Pérez [facility] [address] [place] [id number] MAN:[id number] C: 12/19/08 11:18 CONFIRM #: [id number] documented in this encounter Plan of Treatment Upcoming Encounters Date Type Specialty Care Team Description 06/08/2022 Appointment Neurology Parris Lucas MD [address] [facility] [address] [facility] [place] [address] (Wo rk) documented as of this encounter Visit Diagnoses Not on filedocumented in this encounter Care Teams Adjuster Electrical Contacts Relationship Specialty Start Date End Date Unassigned, Provider PCP - General 03/13/00 03/16/[address] [place] [id number] documented as of this encounter
--- OUTSIDE RECORDS SUMMARY | 2021-12-18 19:27 | XMS_ITS | Encounter Summary ---
:1955 Author Organization [facility] Address [address] [place] [address] Care Team Providers Name Role Phone Elsewhere, Pcp Primary Care Provider Unavailable Reason for Referral Outpatient (Routine) - Closed Specialty Diagnoses / Procedures Referred By Contact Refer red To Contact Diagnoses Pain Hand Right [facility] Region Procedures DX Fingers Right 2+ Views [address] [place] [address] Referral ID Status Reason Start Date Expiration Date Visits Requ ested Visits Authorized [id number] Closed 10/21/2021 10/21/2022 1 1 utpatient (Routine) - Closed Specialty Diagnoses / Procedures Referred By Contact Refer red To Contact Diagnoses Pain Hand Right Dominic Samuel D.O. [facility] Region Procedures DX Hand Right 3+ Views [address] [place] [address] Referral ID Status Reason Start Date Expiration Date Visits Requ ested Visits Authorized [id number] Closed 10/21/2021 10/21/2022 1 1 Reason for Visit Reason Comments Fracture Middle finger right hand. Consult Encounter Details Date Type Department Care Team Description 10/21/2021 Comprehensive Visit Department of Steven Samuel nd Right Orthopedic Surgery Bianca Alfaro (Primary Dx) in [address] [place] [address] [place], [place] [phone] (Work) [phone] Social History Tobacco Use Types Packs/Day Years [...] from the original note were not included. [address] [place] [address] [facility] October 21, 2021 RE: Darlene Drew #: [phone] : 1955 This patient was evaluated on 10/21/2021 at 1:30 pm. Current status: Patient has middle phalanx fracture of her long finger. This will be treated non-operatively in a splint for three weeks. She can come out of splint for bathing/showering otherwise should wear it maritime guard. She should ice her finger a few times a day. After three weeks she can start working on range of motion of her finger and wean out of splint. I will see her back in three weeks to see how she is doing. Darlene Drew's next appointment is in about 3 weeks. Signed: Dominic Samuel D.O. Department Of Orthopedic Surgery In [place], [place] Dept: [phone] Signed on 10/21/21 at 2:51 PM CDT [...] 3 weeks and will start doing some gnhut-li-tanujz exercises with the finger. Will continue to [...] medications, procedures, and communication with other health care program director. documented in this encounter Plan of Treatment Not on filedocumented as of this encounter Results DX Fingers Right 2+ Views (10/21/2021 2:19 PM CDT) Anatomical Region Laterality Modality Upper Extremity, Fingers, Musculoskeletal RST LOS, Right Digital Radiography Musculoskeletal ARZ LOS, Muskuloskeletal [facility] Specimen (Source) Anatomical Collection Method Collection [...] Dominic Samuel D.O. IMG DIAGNOSTIC IMAGING PROCE [email or web address]] DX Hand Right 3+ Views (10/21/2021 1:49 PM CDT) Anatomical Region Laterality Modality Upper Extremity, Hand, Musculoskeletal RST LOS, Right Digital Radiography Musculoskeletal ARZ LOS, Muskuloskeletal [facility] Specimen (Source) Anatomical Collection Method Collection [...] Right documented in this encounter Care Teams Behavioral Health Technician Relationship Specialty Start Date End Date Elsewhere, Pcp PCP - General Welder First Class 03/20/19 documented as of this encounter
--- OUTSIDE RECORDS SUMMARY | 2021-12-18 19:27 | XMS_ITS | Encounter Summary ---
:1955 Author Organization [facility] Address [address] [place] [address] Care Team Providers Name Role Phone Unassigned, Provider Primary Care Provider Unavailable Reason for Visit Reason Comments Other Encounter Details Date Type Department Care Team Description 12/26/2008 Telephone Specialty Center [address] Krystal De Other Neurology E, RN [address] [place] [address] Social History Tobacco Use Types Packs/Day Years [...] 1520 Note Time: 12/26/08 1606 Status: Signed Mitigation Supervisor: Laura De RN (Registered Nurse) OT/PT order mailed to [facility], [address] [place], [place] [address] Created on 26Dec2008 4:06pm by LAURA DE RTISING DISPATCH CLERKS SUPERVISOR documented in this encounter Plan of Treatment Upcoming Encounters Date Type Specialty Care Team Description 06/08/2022 Appointment Neurology Parris Lucas MD [address] [place] [address] (Wo rk) documented as of this encounter Visit Diagnoses Not on filedocumented in this encounter Care Teams Patient Day Coordinator Relationship Specialty Start Date End Date Unassigned, Provider PCP - General 03/13/00 03/16/[address] [place] [address] documented as of this encounter
--- OUTSIDE RECORDS SUMMARY | 2021-12-18 19:27 | XMS_ITS | Encounter Summary ---
:1955 Author Organization [facility] Address [address] [place] [address] Care Team Providers Name Role Phone Unavailable Primary Care Provider Unavailable Encounter Details Date Type Department Care Team Description 12/04/2014 - Hospital Encounter HX [facility] ED PT Parris Lucas M.D. 12/25/[address] [place] [address] (Wo rk) Social History Tobacco Use Types Packs/Day Years Used Date Smoking Tobacco: Never Assessed Sex Assigned at Date Recorded Not on file documented as of this encounter Progress Notes Radha Chambers, A.T.R., P.T. - 12/25/2014 12:00 AM CDT [id number] DATE OF SERVICE: 12/25/2014. SUBJECTIVE: The patient [...] floor to ceiling 4 repetitions performed, sitting shtb-qj-lfha 4 repetitions performed bilaterally, repetitive exercise forward [...] CHAMBERS PT On: 12/26/2014 12:02 PM Source: [facility] MHSDOLBEYNMIKE Document Id: [id number] Radha Chambers A.T.R., P.T. - 12/24/2014 12:00 AM CDT [id number] TREATMENT DIAGNOSIS: Big secondary to Parkinson's. SUBJECTIVE: [...] with quick turns, spins, quick stops and dzgp-kr-ymls mobility. ADMINISTRATIVE BILLING Therapeutic exercise 60 minutes. Radha Chambers D.P.T./pos Electronically Signed By: RADHA CHAMBERS PT On: 12/26/2014 11:51 AM Modified by and Electronically Signed by: RADHA CHAMBERS PT On: 12/26/2014 11:51 AM Source: [facility] MHSDOLBEYNONRADSYS Document Id: [id number] Radha Chambers A.T.R., P.T. - 12/23/2014 12:00 AM CDT [id number] DATE OF SERVICE: 12/23/2014. TREATMENT DIAGNOSIS: BIG, [...] CHAMBERS PT On: 12/26/2014 11:19 AM Source: [facility] MHSDOLBEYNONRADSYS Document Id: [id number] Radha Chambers A.T.R., P.T. - 12/22/2014 12:00 AM CDT [id number] SUBJECTIVE: The patient indicates she did not [...] pelvis and her legs to promote appropriate tattoo and body artist positioning. ADMINISTRATIVE BILLIN minutes of therapeutic exercise. Radha Chambers D.P.T./stephanie Electronically Signed By: RADHA CHAMBERS PT On: 12/26/2014 11:17 AM Modified by and Electronically Signed by: RADHA CHAMBERS PT On: 12/26/2014 11:17 AM Source: [facility] MHSDOLBEYNONRADSYS Document Id: [id number] Radha Chambers A.T.R., P.T. - 12/18/2014 12:00 AM CDT [id number] DATE OF SERVICE 12/18/2014. TREATMENT DIAGNOSIS: Big [...] rock and reach 10 repetitions performed bilaterally. Veujhwbkauihv-bd-uyvbw 5 repetitions performed, shuffling the card, specific [...] CHAMBERS PT On: 12/26/2014 11:11 AM Source: [facility] MHSDOLBEYNONRADSYS Document Id: [id number] Radha Chambers A.T.R. P.T. - 12/17/2014 12:00 AM CDT [id number] DATE OF SERVICE: 12/17/2014. TREATMENT DIAGNOSIS: BIG [...] CHAMBERS PT On: 12/26/2014 11:01 AM Source: [facility] MHSDOLBEYNONRADSYS Document Id: [id number] Radha Chambers, Rhiannon, P.T. - 12/16/2014 12:00 AM CDT [id number] DATE OF SERVICE: 12/16/2014. TREATMENT DIAGNOSIS: BIG [...] CHAMBERS PT On: 12/18/2014 09:31 AM Source: [facility] MHSDOLBEYNONRADSYS Document Id: [id number] Radha Chambers A.T.R., P.T. - 12/15/2014 12:00 AM CDT [id number] TREATMENT DIAGNOSIS: BIG for Parkinson's. SUBJECTIVE: The patient reports she is having a bad day today. Patient indicates yesterday she had an extremely busy day with taoism, an outing, and then playing cards until [...] of 4 feet with sidestepping from the cisco network architect to her drawer. Isolated use of clothespins [...] CHAMBERS PT On: 12/18/2014 07:02 AM Source: [facility] MHSDOLBEYNONRADSYS Document Id: [id number] Radha Chambers A.T.R., P.T. - 12/11/2014 12:00 AM CDT [id number] TREATMENT DIAGNOSIS: BIG for Parkinson's. SUBJECTIVE: The [...] CHAMBERS PT On: 12/15/2014 10:44 AM Source: [facility] MHSDOLBEYNONRADSYS Document Id: [id number] Radha Chambers A.T.R., P.T. - 12/10/2014 12:00 AM CDT [id number] DATE OF SERVICE: 12/10/2014. TREATMENT DIAGNOSIS: BIG [...] dice 5 repetitions performed bilaterally. Green foam lay out drafter/ball squeeze 5 repetitions performed bilaterally. Walking BIG [...] CHAMBERS PT On: 12/15/2014 10:27 AM Source: [facility] SRIDHAR Document Id: [id number] Radha Chambers, Rhiannon, P.T. - 12/09/2014 12:00 AM CDT [id number] DATE OF SERVICE: 12/09/2014. TREATMENT DIAGNOSIS: BIG [...] CHAMBERS PT On: 12/11/2014 09:40 AM Source: [facility] MHSDOLBEYNONRADSYS Document Id: [id number] Radha Chambers A.T.R., P.T. - 12/08/2014 12:00 AM CDT [id number] TREATMENT DIAGNOSIS: BIG for Parkinson's symptoms. SUBJECTIVE: [...] CHAMBERS PT On: 12/11/2014 09:30 AM Source: [facility] MHSDOLBEYNONRADSYS Document Id: [id number] Radha Chambers A.T.R., P.T. - 12/04/2014 12:00 AM CDT [id number] Date of service 12/04/2014. TREATMENT DIAGNOSIS: BIG [...] repetitions quarter turns performed for 1 complete [place] each direction sit and reach 5 repetitions [...] CHAMBERS PT On: 12/09/2014 10:49 AM Source: [facility] MHSDOLBEYNONRADSYS Document Id: [id number] documented in this encounter Miscellaneous Notes Miscellaneous - Conversion, Historical Provider Ser - 12/05/2014 2:39 PM CDT Coding Summary-Paper Based CODING DATE: 12/05/2014 FINAL [facility] STATUS: * Discharged to Home or Self [...] KHAN Date Saved: 12/05/2014 02:39 pm Source: natue Document Id: [id number] documented in this encounter Plan of Treatment Not on filedocumented as of this encounter Visit Diagnoses Not on filedocumented in this encounter
--- OUTSIDE RECORDS SUMMARY | 2021-12-18 19:27 | XMS_ITS | Encounter Summary ---
:1955 Author Organization [facility] Address [address] [place] [address] Care Team Providers Name Role Phone Elsewhere, Pcp Primary Care Provider Unavailable Reason for Referral Outpatient (Routine) - Closed Specialty Diagnoses / Procedures Referred By Contact Refer red To Contact Diagnoses Pain Hand Right Dominic Samuel D.O. [facility] Region Procedures DX Hand Right 3+ Views [address] [place] [address] Referral ID Status Reason Start Date Expiration Date Visits Requ ested Visits Authorized [id number] Closed 10/21/2021 10/21/2022 1 1 Reason for Visit Outpatient (Routine) - Closed Specialty Diagnoses / Procedures Referred By Contact Refer red To Contact Diagnoses Pain Hand Right Dominic Samuel D.O. [facility] Region Procedures DX Hand Right 3+ Views [address] [place] [address] Referral ID Status Reason Start Date Expiration Date Visits Requ ested Visits Authorized [id number] Closed 10/21/2021 10/21/2022 1 1 Encounter Details Date Type Department Care Team Description 10/21/2021 Hospital Encounter Department of Dominic Samuel, Pain Hand Right Radiology, [facility], in [place] [address] [address] [place], [place] [address] [place] [address] [place], [place] [phone] [address] (Work) [phone] Social History Tobacco Use Types Packs/Day Years [...] mouth daily. Take at tablet 5 PM tssvoawmo-fvwspuct-tmsxonv Take 1 tablet by 0 one (STALEVO) [...] Right documented in this encounter Care Teams College Basketball Coach Relationship Specialty Start Date End Date Elsewhere, Pcp PCP - General Waste Elimination 03/20/19 documented as of this encounter
--- OUTSIDE RECORDS SUMMARY | 2021-12-18 19:27 | XMS_ITS ---
:[address] [facility] Prof frye [facility] Address [address] [place] [address] Care Team Providers Name Role Phone Rahul Gutierrez Unavailable Unavailable PROBLEMS Type Condition ICD9-CM Code AFW82-AG Code Onset Condition SNO MED Code Dates Status Problem Other specified I73.89 Active 4000 67313 peripheral vascular diseases ALLERGIES No Information ENCOUNTERS Encounter Location Date Diagnosis [place] [address] [facility], Dec, [place] [address] vascular disease s I73.89 ; Onychomycosis of toenail B35.1 ; Pain in right to e(s) M79.674 ; Pain of toe of l eft foot M79.675 and Dystrophic n ail L60.3 [place] [address] [facility], Oct, [place] [address] vascular disease s I73.89 ; Onychomycosis of toenail B35.1 ; Pain in right to e(s) M79.674 ; Pain of toe of l eft foot M79.675 and Dystrophic n ail L60.3 [place] [address] [facility], July, [place] [address] vascular disease s I73.89 ; Onychomycosis of toenail B35.1 ; Pain in right to e(s) M79.674 ; Pain of toe of l eft foot M79.675 ; Dystrophic vic l L60.3 and Hyperkeratosis L 85.9 [place] [address] [facility], May, [place] [address] vascular disease s I73.89 ; Onychomycosis of toenail B35.1 ; Pain in right to e(s) M79.674 ; Pain of toe of l eft foot M79.675 ; Dystrophic vic l L60.3 and Hyperkeratosis L 85.9 [place] [address] [facility], Jan, [place] [address] vascular disease s I73.89 ; Onychomycosis of toenail B35.1 ; Pain in right to e(s) M79.674 ; Pain of toe of l eft foot M79.675 ; Dystrophic vic l L60.3 and Hyperkeratosis L 85.9 [place] [address] [facility], Nov, [place] [address] vascular disease s I73.89 ; Onychomycosis of toenail B35.1 ; Pain in right to e(s) M79.674 ; Pain of toe of l eft foot M79.675 ; Dystrophic vic l L60.3 and Hyperkeratosis L 85.[address], Sep, [place] [address] vascular disease s I73.89 ; Onychomycosis of toenail B35.1 ; Pain in right to e(s) M79.674 ; Pain of toe of l eft foot M79.675 ; Dystrophic vic l L60.3 and Hyperkeratosis L 85.9 [place] [address] [facility], July, [place] [address] vascular disease s I73.89 ; Onychomycosis of toenail B35.1 ; Pain in right to e(s) M79.674 ; Pain of toe of l eft foot M79.675 and Dystrophic n ail L60.[address], Apr, [place] [address] vascular disease s I73.89 ; Onychomycosis of toenail B35.1 ; Pain in right to e(s) M79.674 ; Pain of toe of l eft foot M79.675 ; Dystrophic vic l L60.3 and Hyperkeratosis L 85.9 [facility] [address] [facility], Feb, [place] [address] vascular disease s I73.89 ; Onychomycosis of toenail B35.1 ; Pain in right to e(s) M79.674 ; Pain of toe of l eft foot M79.675 ; Dystrophic vic l L60.3 and Hyperkeratosis L 85.9 [facility] [address] [facility], Dec, Onych omycosis of toenail B35.1 ; [place] [address] Other specified peripheral vascular disease s I73.89 ; Pain in right toe(s) M79.674 ; Pain of toe of left f oot M79.675 ; Dystrophic nail L60.3 and Hyperkeratosis L 85.9 IMMUNIZATIONS No Known Immunizations SOCIAL HISTORY Never Assessed REASON FOR REFERRAL FUNCTIONAL STATUS PLAN OF CARE VITAL SIGNS MEDICATIONS Medication Instructions Dosage Frequency Start Date End Date Duration S tatus Carbidopa-Levodopa 28 Activ e 25-250 MG Carbidopa-Levodopa 28 Activ e ER 50-200 MG Nuplazid 34 MG 30 Active Escitalopram Oxalate 28 Act tung 20 MG Fludrocortisone 28 Active Acetate 0.1 MG Prolia 60 MG/ML 30 Active Omeprazole 20 MG 28 Active Mirtazapine 15 MG 28 Active Midodrine HCl 5 MG 28 Activ e PROCEDURES Procedure Date Ordered Result Body Site TRIM DYSTROPHIC NAILS ANY NUMBER Dec 14, 2021 CUR MEDS NO DOC ELG CLN RSN NOT GVN September 08, 2020 TRIM SKIN LESION May 25, 2021 TRIM SKIN LESION July 27, 2021 CUR MEDS NO DOC ELG CLN RSN NOT GVN July 06, 2020 DOMICIL/R-HOME VISIT [facility] Dec 09, 2019 TRIM DYSTROPHIC NAILS ANY NUMBER Nov 10, 2020 TRIM SKIN LESION Jan 12, 2021 DOC MEDS VERIFIED W/PT OR RE Oct 05, 2021 DEBRIDE NAIL 1-5 July 06, 2020 DEBRIDE NAIL 1-5 Feb 10, 2020 DOC MEDS VERIFIED W/PT OR RE Jan 12, 2021 TRIM SKIN LESION Nov 10, 2020 DEBRIDE NAIL 1-5 July 27, 2021 CUR MEDS NO DOC ELG CLN RSN NOT GVN Nov 10, 2020 TRIM SKIN LESION Apr 27, 2020 TRIM SKIN LESION Dec 09, 2019 TRIM DYSTROPHIC NAILS ANY NUMBER Dec 09, 2019 TRIM SKIN LESION September 08, 2020 DEBRIDE NAIL 1-5 May 25, 2021 CUR MEDS NO DOC ELG CLN RSN NOT GVN Apr 27, 2020 DEBRIDE NAIL 1-5 Nov 10, 2020 DEBRIDE NAIL 1-5 Apr 27, 2020 DEBRIDE NAIL 1-5 September 08, 2020 CUR MEDS NO DOC ELG CLN RSN NOT GVN Feb 10, 2020 TRIM DYSTROPHIC NAILS ANY NUMBER Oct 05, 2021 DOC MEDS VERIFIED W/PT OR RE May 25, 2021 DEBRIDE NAIL 1-5 Oct 05, 2021 TRIM SKIN LESION Feb 10, 2020 DOC MEDS VERIFIED W/PT OR RE July 27, 2021 DEBRIDE NAIL 1-5 Jan 12, 2021 DOC MEDS VERIFIED W/PT OR RE Dec 14, 2021 TRIM DYSTROPHIC NAILS ANY NUMBER July 06, 2020 No pt tbco scrn rng Dec 09, 2019 CUR MEDS NO DOC ELG CLN RSN NOT GVN Dec 09, 2019 TRIM DYSTROPHIC NAILS ANY NUMBER Feb 10, 2020 TRIM DYSTROPHIC NAILS ANY NUMBER July 27, 2021 TRIM DYSTROPHIC NAILS ANY NUMBER May 25, 2021 TRIM DYSTROPHIC NAILS ANY NUMBER Jan 12, 2021 DEBRIDE NAIL 1-5 Dec 09, 2019 TRIM DYSTROPHIC NAILS ANY NUMBER Apr 27, 2020 TRIM DYSTROPHIC NAILS ANY NUMBER September 08, 2020 RESULTS No Results REASON FOR VISIT [place] [facility], Painful nails, [place] [facility], Painful nails, [place], Painful nails, Painful callus, [place], Painful nails, Painful callus, [place], Painful nails, Painful callus, [place], Painful nails, Painful callus, [place], Painful nails, Painful callus, [place], Painful nails, [place], Painful nails, Painful callus, [place], Painful nails, Painful callus, [place], Painful nails, Painful callus Insurance Providers [facility] Member Patient Patient Patient Patient Patient Subscriber Subscriber Subscriber Group Insurance Plan Plan Plan Plan ID Relationship Address Phone Name Date of ID Name Date of No Type Insurance Insurance Insurance Coverage to Subscriber Address Phone Name Dates Medicare [address] [phone] Medicare self Daya [id number] [facility] [place] [address] [phone] BCBS self Daya [id number] [facility] [id number] Medicare h [address] [id number] Supplement [facility] Supplement [id number]
--- OUTSIDE RECORDS SUMMARY | 2021-12-18 19:27 | XMS_ITS | Encounter Summary ---
:1955 Author Organization [facility] Address [address] [place] [address] Care Team Providers Name Role Phone Elsewhere, Pcp Primary Care Provider Unavailable Reason for Referral Outpatient (Routine) - Closed Specialty Diagnoses / Procedures Referred By Contact Refer red To Contact Diagnoses Pain Hand Right Dominic Samuel D.O. [facility] [place] Region Procedures DX Fingers Right 2+ [address] [place] [address] Referral ID Status Reason Start Date Expiration Date Visits Requ ested Visits Authorized [id number] Closed 10/21/2021 10/21/2022 1 1 Reason for Visit Outpatient (Routine) - Closed Specialty Diagnoses / Procedures Referred By Contact Refer red To Contact Diagnoses Pain Hand Right Dominic Samuel D.O. [facility] Region Procedures DX Fingers Right 2+ Views [address] [place] [address] Referral ID Status Reason Start Date Expiration Date Visits Requ ested Visits Authorized [id number] Closed 10/21/2021 10/21/2022 1 1 Encounter Details Date Type Department Care Team Description 10/21/2021 Hospital Encounter Department of Dominic Samuel, Pain Hand Right Radiology, [facility], in [place] [address] [address] [place], [place] [address] [place] [address] [place], [place] [phone] [address] (Work) [phone] Social History Tobacco Use Types Packs/Day Years [...] mouth daily. Take at tablet 5 PM swmqmiyqt-ygvmmree-vuampor Take 1 tablet by 0 one (STALEVO) [...] middle phalanx. Dominic [facility] GRNAT documented in this encounter Visit Diagnoses Diagnosis Pain Hand Right documented in this encounter Care Teams Aperture Mask Etcher Relationship Specialty Start Date End Date Elsewhere, Pcp PCP - General Brazer Induction 03/20/19 documented as of this encounter
--- OUTSIDE RECORDS SUMMARY | 2021-12-18 19:27 | XMS_ITS | Encounter Summary ---
:1955 Author Organization [facility] Address [address] [place] [address] Care Team Providers Name Role Phone Elsewhere, Pcp Primary Care Provider Unavailable Reason for Referral Outpatient (Routine) - Closed Specialty Diagnoses / Procedures Referred By Contact Refer red To Contact Diagnoses Pain Knee Right Sharad Velazquez M.D. [facility] Region Procedures DX Knee Right 4+ Views [address] [place] [address] Referral ID Status Reason Start Date Expiration Date Visits Requ ested Visits Authorized [id number] Closed 06/04/2021 06/04/2022 1 1 Reason for Visit Outpatient (Routine) - Closed Specialty Diagnoses / Procedures Referred By Contact Refer red To Contact Diagnoses Pain Knee Right Sharad Velazquez M.D. [facility] Region Procedures DX Knee Right 4+ Views [address] [place] [address] Referral ID Status Reason Start Date Expiration Date Visits Requ ested Visits Authorized [id number] Closed 06/04/2021 06/04/2022 1 1 Encounter Details Date Type Department Care Team Description 06/04/2021 Hospital Encounter Department of Steven Velazquez Radiology, [facility], in [address] [place] [address] [place], [place] [phone] (Work) [phone] Social History Tobacco Use Types Packs/Day Years [...] Right documented in this encounter Care Teams Order Department Supervisor Relationship Specialty Start Date End Date Elsewhere, Pcp PCP - General Outdoor Power Equipment Mechanic 03/20/19 documented as of this encounter
--- OUTSIDE RECORDS SUMMARY | 2021-12-18 19:27 | XMS_ITS | Encounter Summary ---
:1955 Author Organization [facility] Address [address] [place] [address] Care Team Providers Name Role Phone Unassigned, Provider Primary Care Provider Unavailable Encounter Details Date Type Department Care Team Description 03/03/2009 PN Conversion Only CONV NEUROLOGY Parris Lucas MD [address] [facility] [address] [facility] [address] [place] [phone] (Wo rk) Social History Tobacco Use Types Packs/Day Years Used Date Smoking Tobacco: Never Assessed Sex Assigned at Date Recorded Not on file documented as of this encounter Plan of Treatment Upcoming Encounters Date Type Specialty Care Team Description 06/08/2022 Appointment Neurology Parris Lucas MD [address] [facility] [address] [facility] [place] [address] (Wo rk) documented as of this encounter Visit Diagnoses Not on filedocumented in this encounter Care Teams Drywall Hanger Framer Relationship Specialty Start Date End Date Unassigned, Provider PCP - General 03/13/00 03/16/14 [address] [place] [address] documented as of this encounter
--- OUTSIDE RECORDS SUMMARY | 2021-12-18 19:27 | XMS_ITS | Encounter Summary ---
:1955 Author Organization [facility] Address [address] [place] [address] Care Team Providers Name Role Phone Unavailable Primary Care Provider Unavailable Encounter Details Date Type Department Care Team Description 11/20/2014 - Hospital Encounter HX [facility] ED PT Parris Lucas M.D. 12/03/[address] [place] [phone] (Wo rk) Social History Tobacco Use Types Packs/Day Years Used Date Smoking Tobacco: Never Assessed Sex Assigned at Date Recorded Not on file documented as of this encounter Progress Notes Radha Chambers, A.T.R., P.T. - 12/03/2014 12:00 AM CDT [id number] TREATMENT DIAGNOSIS: BIG for Parkinson's. SUBJECTIVE: The patient indicates she did perform her exercises when she got home last evening and then did play BunUngalli last night. The patient indicates having to [...] and reach 10 times each side, functional vkp-bc-aihpz BIG 4 repetitions. Functional quarter turns 4 [...] CHAMBERS PT On: 12/09/2014 07:41 AM Source: [facility] MHSDOLBEYNONRADSYS Document Id: [id number] Radha Chambers A.T.R., P.T. - 12/02/2014 12:00 AM CDT [id number] DATE OF SERVICE: 12/02/2014. SUBJECTIVE: The patient [...] BILLING Fifty-eight minutes of therapeutic exercise. Eveline RameyTdEdie/pos Electronically Signed By: RADHA CHAMBERS PT On: 12/04/2014 07:22 AM Source: [facility] MHSDOLBEYNONRADSYS Document Id: [id number] Radha Chambers A.T.R., P.T. - 12/01/2014 12:00 AM CDT [id number] DATE OF SERVICE: 12/01/2014. TREATMENT: BIG therapy [...] and introduced to all exercises today include jfm-gx-uyrda exercises sitting floor to ceiling 10 repetitions [...] CHAMBERS PT On: 12/03/2014 10:12 AM Source: [facility] MHSDOLBEYNONRADSYS Document Id: [id number] documented in this encounter Consult Notes Radha Chambers A.T.R., P.T. - 11/20/2014 12:00 AM CDT [id number] DATE: 11/20/2014 SUBJECTIVE: Referring Physician: Dr. Parris [...] improve her time for the 5 times kzi-py-uuwvc test by 1 second, 3 weeks. LONG-TERM [...] CHAMBERS PT On: 11/28/2014 03:48 PM Source: [facility] MHSDOLBEYNONRADSYS Document Id: [id number] documented in this encounter Miscellaneous Notes Miscellaneous - Conversion, Historical Provider Ser - 11/26/2014 1:31 PM CDT Coding Summary-Paper Based CODING DATE: 11/26/2014 FINAL [facility] STATUS: * Discharged to Home or [...] Revised Date Saved: 11/26/2014 01:31 pm Source: [facility] POWERCHART Document Id: [id number] documented in this encounter Plan of Treatment Not on filedocumented as of this encounter Visit Diagnoses Not on filedocumented in this encounter
--- OUTSIDE RECORDS SUMMARY | 2021-12-18 19:27 | XMS_ITS | Encounter Summary ---
:1955 Author Organization [facility] Address [address] [place] [address] Care Team Providers Name Role Phone Unavailable [...]
--- OUTSIDE RECORDS SUMMARY | 2021-12-18 19:27 | XMS_ITS | Encounter Summary ---
:1955 Author Organization [facility] Address [address] [place] [address] Care Team Providers Name Role Phone Unavailable [...]
--- OUTSIDE RECORDS SUMMARY | 2021-12-18 19:27 | XMS_ITS | Encounter Summary ---
:1955 Author Organization [facility] Address [address] [place] [address] Care Team Providers Name Role Phone Unavailable Primary Care Provider Unavailable Encounter Details Date Type Department Care Team Description 10/10/2012 Hospital Encounter HX [facility] Prakash Lugo M.D. [address] [place], [place] [address] (Wo rk) Social History Tobacco Use Types Packs/Day Years Used Date Smoking Tobacco: Never Assessed Sex Assigned at Date Recorded Not on file documented as of this encounter Miscellaneous Notes Miscellaneous - Conversion, Historical Provider Ser - 10/10/2012 10:03 AM CDT Patient Education - Election Watcher Patient Education - Election Watcher Entered On: 10/10/2012 10:49 CDT Performed On: [...] she selects. She will purchase at the [employer]. Gave printed material and advised patient [...] MEJIAS RD - 10/10/2012 10:03 CDT Source: [facility] POWERCHART Document Id: [id number] documented in this encounter Plan of Treatment Not on filedocumented as of this encounter Visit Diagnoses Not on filedocumented in this encounter
--- OUTSIDE RECORDS SUMMARY | 2021-12-18 19:27 | XMS_ITS | Encounter Summary ---
:1955 [facility] Address [address] [place] [address] Care Team Providers Name Role Phone Unassigned, Provider Primary Care Provider Unavailable Encounter Details Date Type Department Care Team Description 12/18/2008 PN Conversion Only CONV NEUROLOGY Parris Lucas MD [address] [facility] [address] [facility] [address] [place] [phone] (Wo rk) Social History Tobacco Use Types Packs/Day Years Used Date Smoking Tobacco: Never Assessed Sex Assigned at Date Recorded Not on file documented as of this encounter Plan of Treatment Upcoming Encounters Date Type Specialty Care Team Description 06/08/2022 Appointment Neurology Parris Lucas MD [address] [facility] [address] [facility] [place] [address] (Wo rk) documented as of this encounter Visit Diagnoses Not on filedocumented in this encounter Care Teams Inspector Pawnshop Detail Relationship Specialty Start Date End Date Unassigned, Provider PCP - General 03/13/00 03/16/14 [address] [place] [address] documented as of this encounter
--- OUTSIDE RECORDS SUMMARY | 2021-12-18 19:27 | XMS_ITS | Encounter Summary ---
:1955 Author Organization [facility] Address [address] [place] [address] Care Team Providers Name Role Phone Elsewhere, Pcp Primary Care Provider Unavailable Reason for Referral Outpatient (Routine) - Closed Specialty Diagnoses / Procedures Referred By Contact Refer red To Contact Diagnoses Pain Shoulder Right Sharad Velazquez M.D. [facility] Region Procedures DX Shoulder Right 2+ [address] [place] [address] Referral ID Status Reason Start Date Expiration Date Visits Requ ested Visits Authorized [id number] Closed 11/26/2021 11/26/2022 1 1 Reason for Visit Reason Comments Pain Bone chip noted on x ray Consult Encounter Details Date Type Department Care Team Description 11/26/2021 Office Visit Department of Steven Velazquez Shoulder Right Orthopedic Surgery in [place] (Primary Dx) [facility] [address] [place] [phone] Social History Tobacco Use Types Packs/Day [...] Progression 2: Gradually worsening, (11/26/21 1330 : Laura Yousif L.P.N.) REASON FOR CONSULT Darlene Drew [...] Take at 5 PM, Disp: , Rfl: unszkzbus-xihbnrpq-wvvvnukvnv (STALEVO) 50-200-200 mg per tablet, Take 1 [...] Right documented in this encounter Care Teams Clinical Training Specialist Relationship Specialty Start Date End Date Elsewhere, Pcp PCP - General Client Account Assistant 03/20/19 documented as of this encounter
--- OUTSIDE RECORDS SUMMARY | 2021-12-18 19:27 | XMS_ITS | Clinical Summary ---
:1955 Author Organization [facility] Address [address] [place] [address] Care Team Providers Name Role Phone Elsewhere, Pcp Primary Care Provider Unavailable Source Comments Patient records contain information from all sites at [facility]. For routine questions regarding patient records, call [phone] during business hours, M-F 8:00 AM - 5:00 PM Central Time. Record requests for emergency care only can be directed to [phone] at any time.[facility] Allergies Active Allergy Reactions Severity Noted Date [...] daily. per tablet Take at 5 PM evtouydvi-rnpvxafz-jyh Take 1 tablet by 0 Active acapone [...] Vital sign result CDT from Clinical No jaerk. Pulse 83 11/26/2021 1:30 PM CDT Temperature 36.9 ??C (98.4 ??F) 11/26/2021 1:30 PM CDT Respiratory Rate - - Oxygen Saturation 98% 11/26/2021 1:30 PM CDT Inhaled Oxygen - - Concentration Weight 73.8 kg (162 lb 11.2 08/13/2015 9:36 AM Vital sign result oz) CDT from Clinical No jarek. Height 174 cm (5' 8.5) 05/11/2015 10:07 Vital sign result AM COMMUNITY REINVESTMENT ACT OFFICER from Clinical No jarek. Body Mass Index 24.38 05/11/2015 10:07 AM COMMUNITY REINVESTMENT ACT OFFICER Plan of Treatment Health Maintenance Due Date [...] Digital Radiography Musculoskeletal ARZ LOS, Muskuloskeletal FLA [facility] Specimen (Source) Anatomical Collection Method Collection [...] phalanx. Dominic Samuel D.O. [facility] DX Hand Right 3+ Views (10/21/2021 1:49 PM CDT) Anatomical Region Laterality Modality Upper Extremity, Hand, Musculoskeletal RST LOS, Right Digital Radiography Musculoskeletal ARZ [facility], Muskuloskeletal FLA [facility] Specimen (Source) Anatomical Collection Method Collection [...] ype Group Dates MEDICARE MEDICARE A AND [id number] 2013-Prese [address] [place] [address] [facility] 2016-[place]se [address] [id number] Indemnity [place] [address] Care Teams Photo Specialist Relationship Specialty Start Date End Date Elsewhere, Pcp PCP - General Supervising Floorperson 03/20/19
--- OUTSIDE RECORDS SUMMARY | 2021-12-18 19:27 | XMS_ITS | Encounter Summary ---
:1955 Author Organization [facility] Address [address] [place] [address] Care Team Providers Name Role Phone Elsewhere, Pcp Primary Care Provider Unavailable Encounter Details Date Type Department Care Team Description 12/01/2021 Clinical Communication Department of [facility], Pcp Surgery in [place], [place] [address] [place] [address] Social History Tobacco Use Types Packs/Day Years Used Date Smoking Tobacco: Never Sex Assigned at Date Recorded Not on file documented as of this encounter Miscellaneous Notes Telephone Encounter - Ashley Fuentes R.N. - 12/17/2021 11:19 AM CDT Ranjana called with update and stated the following: We called [place] arturo to give orders - Dr. Velazquez said if she is still having pain to keep splinting it and re-xray in a couple week. If she is not experiencing pain she can stop splinting. Telephone Encounter - Ashley Fuentes R.N. - [...] an xray of right hand. Daughter states [facility] did send over the report available in [...] specialize in hands. Daughter asking if Dr. Velazuqez could look at the report and let them know his recommendations in the meantime. Called and spoke to Dr. Velazquez's veterinarian laboratory animal care Ranjana at [facility] office. Ranjana states she will request the actual films for him to review and will show him the right hand xray report from 12/02/21 and will let us know next steps but might not be until . Telephone Encounter - Alyssia Franklin C.M.A. - 12/07/2021 9:54 AM CDT Reny, are you able to address this? Telephone Encounter - Alyssia Franklin C.M.A. - 12/01/2021 11:39 AM CDT LM to let Monisha know Dr. Velazquez is not in office until Monday. We will also need to get a signed release for Monisha. Dr. Velazquez, Is patient a candidate for shoulder injections? Telephone Encounter - Valerie Lguo - 12/01/2021 10:10 AM CDT Reason for [...] Action Needed: Call Monisha Special calling instructions: [phone] Ok to leave detailed message on voicemail? [...] on filedocumented in this encounter Care Teams Telephone Instrument Supervisor Relationship Specialty Start Date End Date Elsewhere, Pcp PCP - General Route Sales Manager 03/20/19 documented as of this encounter
--- OUTSIDE RECORDS SUMMARY | 2021-12-18 19:27 | XMS_ITS | Encounter Summary ---
:1955 Author Organization [facility] Address [address] [place] [address] Care Team Providers Name Role Phone Elsewhere, Pcp Primary Care Provider Unavailable Encounter Details Date Type Department Care Team Description 11/04/2021 Clinical Communication Department of Orthopedic [facility] ere, Pcp Surgery in [place], [place] [address] [place] [phone] Social History Tobacco Use Types [...] the patient on 11/10. Action Needed: Call Monisha Special calling instructions: [phone] Ok to leave detailed message on voicemail? yes Portal- N/A documented in this encounter Plan of Treatment Not on filedocumented as of this encounter Visit Diagnoses Not on filedocumented in this encounter Care Teams Contract Sheltered Workshop Supervisor Relationship Specialty Start Date End Date Elsewhere, Pcp PCP - General Credit Union Manager 03/20/19 documented as of this encounter
--- OUTSIDE RECORDS SUMMARY | 2021-12-18 19:27 | XMS_ITS | Encounter Summary ---
:1955 Author Organization [facility] Address [address] [place] [address] Care Team Providers Name Role Phone Unavailable Primary Care Provider Unavailable Encounter Details Date Type Department Care Team Description 04/01/2009 Hospital Encounter HX [facility]ERC[facility] Chela Mcdowell, CEP [address] [place] [id number] Social History Tobacco Use Types Packs/Day Years Used Date Smoking Tobacco: Never Assessed Sex Assigned at Date Recorded Not on file documented as of this encounter Plan of Treatment Not on filedocumented as of this encounter Visit Diagnoses Not on filedocumented in this encounter
--- OUTSIDE RECORDS SUMMARY | 2021-12-18 19:27 | XMS_ITS | Encounter Summary ---
:1955 Author Organization [facility] Address [address] [place] [address] Care Team Providers Name Role Phone Unavailable [...]
--- OUTSIDE RECORDS SUMMARY | 2021-12-18 19:27 | XMS_ITS | Encounter Summary ---
:1955 Author Organization [facility] Address [address] [place] [address] Care Team Providers Name Role Phone Unavailable [...]
--- OUTSIDE RECORDS SUMMARY | 2021-12-18 19:27 | XMS_ITS | Encounter Summary ---
:1955 Author Organization [facility] Address [address] [place] [address] Care Team Providers Name Role Phone Unavailable [...]
[2021-12-18 19:30] VITALS: BP 149/82
[2021-12-18 20:00] VITALS: BP 138/60; BP 163/79; PULSE 81; PULSE 87; RESP 18; TEMP 36.8; O2SAT 94; O2SAT 96; O2SAT 97
[2021-12-18 20:02] LABS: Lactate* 0.9 mmol/L (0.5-1.9)
[2021-12-18 20:04] LABS: Basophils Absolute Auto 0.05 K/uL (0.00-0.30); Basophils Percent Auto 0.8 % (0.0-3.0); Eosinophils Absolute Auto 0.03 K/uL (0.00-0.50); Eosinophils Percent Auto 0.5 % (0.0-7.0); Hematocrit 33.9 % (33.0-51.0); Immature Granulocytes Abs Auto 0.01 K/uL (0.00-0.30); Lymphocytes Percent Auto 13.9 % (20-44); Mean Corpuscular HGB Conc 32 gm/dL (32-36); Mean Corpuscular Hemoglobin 30 pg (26-34); Mean Corpuscular Volume 92 fL (80-100); Neutrophils Percent Auto 77.6 % (42.0-72.0); Platelet Count* 363 K/uL (140-440); RDW Coefficient of Variation % 13.2 % (11.5-15.5); Slide Review Reflex No; White Blood Count* 6.55 K/uL (4.50-11.00)
--- NOTE | 2021-12-18 20:30 | ED.GENADULT ---
HPI - General Adult General Chief complaint: Chest Pain Stated complaint: CHEST PAIN,SHORTNESS OF BREATH Time Seen by Provider: 12/18/21 18:57 Source: patient and family Limitations: no limitations History of Present Illness HPI narrative: 66-year-old female, with a history of Parkinson's disease, coming in today complaining of chest pain. States that the pain has been present for about a week. She thinks it all started after she fell and fractured her nose. The pain comes and goes. Nothing seems to make it better. She thinks that the pain comes when she gets ?excited about stuff?. She was recently started on antibiotics for after she fell and suffered a nasal fracture. The day after she developed loose stools. She states that couple of times now she has not been able to make it to the bathroom when she feels the need to have a bowel movement. Today she felt the need to have a bowel movement and became very anxious about a so she tried to get to the bathroom as fast as she could. This caused her to feel very short of breath. Because she was ?huffing and puffing? Nursing staff at the memory care unit thought that she should come in for evaluation. She does not believe that her pain is associated with eating. She does not become short of breath when the pain comes. It is not associated with physical activity, she can get it at rest, it is associated with feeling agitated-she is uncertain if she feels anxious Jen agitation 1st and then the Kinsey pain or fits the other way around. Looking through her medical records, it appears that the patient was started on Keflex 4 days ago. Related Data Allergies Allergy/AdvReac Type Severity Reaction Status Date / Time Penicillins Allergy Mild Hives Verified 12/14/21 20:04 Sulfa (Sulfonamide Allergy Mild Hives Verified 12/14/21 20:04 Antibiotics) Review of Systems Status of ROS: Reports: 10 or more systems reviewed and unremarkable except as noted in History and below [facility] Medical History (Updated 12/18/21 @ 21:10 by Mitali Mcghee MD) Parkinson disease Social History Smoking Status: Never smoker Do you use any of these nicotine containing products: None Second hand tobacco smoke exposure: No How often do you have a drink containing alcohol: never How often do you have six or more drinks on one occasion: Never AUDIT-C Alcohol total score: 0 Non-prescribed substance use: denies use service: No Exam Narrative: Exam Narrative: Thin, well-developed patient in no acute distress. Alert and oriented. Answers questions appropriately. Patient speaks in full sentences without needing to catch their breath. She is somewhat difficult to understand. HEENT: Normocephalic. Pupils are equally round reactive to light. Extraocular muscles are intact. Conjunctivae are moist without any icterus noted. Moist mucous membranes. Neck is supple. Patient has healing abrasions over the forehead and nose. Cardiovascular: Heart is regular rate and rhythm S1 and S2 are present with a 2/6 systolic murmur. Lungs: Slightly decreased breath sounds bilaterally without any wheezing, rhonchi or rales. I cannot reproduce pain on palpation to the chest wall. She currently is pain-free. Abdomen: Soft and nontender nondistended with normal bowel sounds. Extremities: Bilateral lower extremities are without edema. Skin: Well perfused without any obvious rashes. Const: Vital Signs, click to edit/add: Vital Signs - 24 hr 12/18/21 18:33 12/18/21 20:00 12/18/21 20:00 Temperature 98.2 F 98.2 F Pulse Rate Pulse Rate [Right Pulse Oximeter] 85 81 Respiratory Rate 20 18 Blood Pressure [Ri ght Upper Arm] 162/85 H 138/60 Pulse Oximetry 98 94 97 Oxygen Delivery Me thod Room Air Room Air 12/18/21 20:39 12/18/21 20:00 12/18/21 19:30 Temperature Pulse Rate 83 Pulse Rate [Right Pulse Oximeter] 87 Respiratory Rate 18 Blood Pressure [Ri ght Upper Arm] 163/79 H 149/82 H Pulse Oximetry 98 96 Oxygen Delivery Me thod Room Air Course Course Hospital Course: Movie was established and labs were drawn. EKG shows normal sinus rhythm with a pulse of 87. Labs were unremarkable. Troponin was negative. Patient remained asymptomatic while she was here. She did not have any bowel movements while she was here either. Vital Signs Vital signs: Initial Vital Signs Temperature 98.2 F 12/18/21 18:33 Temperature Source Temporal Artery Scan 12/18/21 18:33 Pulse Rate 85 12/18/21 18:33 Respiratory Rate 20 12/18/21 18:33 Blood Pressure 162/85 H 12/18/21 18:33 Blood Pressure Mean 110 12/18/21 18:33 Blood Pressure Position Sitting 12/18/21 18:33 Pulse Oximetry 98 12/18/21 18:33 Oxygen Delivery Method 12/18/21 18:33 Vital Signs Temperature 98.2 F 12/18/21 18:33 Pulse Rate 85 12/18/21 18:33 Respiratory Rate 20 12/18/21 18:33 Blood Pressure 162/85 H 12/18/21 18:33 Pulse Oximetry 98 12/18/21 18:33 Oxygen Delivery Method 12/18/21 18:33 Temperature 98.2 F 12/18/21 20:00 Pulse Rate 83 12/18/21 20:39 Respiratory Rate 18 12/18/21 20:00 Blood Pressure 163/79 H 12/18/21 20:00 Pulse Oximetry 98 12/18/21 20:39 Oxygen Delivery Method 12/18/21 20:00 Medical Decision Making MDM Narrative Medical decision making narrative: 66-year-old female with chest discomfort. Does not sound like this is cardiovascular in nature. Her daughter seems to think that this is likely related to anxiety which is not new for her mother. I do recommend that they follow up with her primary care provider and discuss doing a stress test if needed. Otherwise discussing her anxiety and symptoms. Return to the ED if symptoms return and do not pass. Medical Records Medical records reviewed: Yes I reviewed the patient's medical records Lab Data Lab results reviewed: Yes I reviewed the patient's lab results Labs: Lab Results 12/18/21 12/18/21 12/18/21 Range/Units 19:40 19:40 19:40 WBC 6.55 (4.50-11.00) K/uL RBC 3.70 L (4.00-5.20) m/uL Hgb 11.0 L (12.0-16.0) gm/dL Hct 33.9 (33.0-51.0) % MCV 92 (80-100) fL MCH 30 (26-34) pg MCHC 32 (32-36) gm/dL RDW Coeff of Lea 13.2 (11.5-15.5) % Plt Count 363 (140-440) K/uL Neut % (Auto) 77.6 H (42.0-72.0) % Lymph % (Auto) 13.9 L (20-44) % Esmeralda % (Auto) 7.0 (0.0-11.0) % Eos % (Auto) 0.5 (0.0-7.0) % Baso % (Auto) 0.8 (0.0-3.0) % Neut # (Auto) 5.10 (1.7-7.0) K/uL Lymph # (Auto) 0.90 (0.90-2.90) K/uL Esmeralda # (Auto) 0.50 (0.00-0.90) K/UL Eos # (Auto) 0.03 (0.00-0.50) K/uL Baso # (Auto) 0.05 (0.00-0.30) K/uL Abs Immat Gran (auto) 0.01 (0.00-0.30) K/uL Sodium 140 (135-149) mmol/L Potassium 3.6 (3.6-5.1) mmol/L Chloride 100 (96-114) mmol/L Carbon Dioxide 29 (20-32) mmol/L BUN 18 (7-30) mg/dL Creatinine 0.5 (0.5-1.5) mg/dL Estimated Creat Clear 55.82 Estimated GFR 103 ml/min Glucose 135 H (60-115) mg/dL Lactate (0.5-1.9) mmol/L Calcium 9.6 (8.4-10.6) mg/dL Total Bilirubin 0.9 (0.1-1.5) mg/dL Direct Bilirubin 0.3 (0.0-0.5) mg/dL AST 27 (12-35) U/L ALT 5 (4-35) U/L Alkaline Phosphatase 84 (40-150) U/L Troponin I < 0.01 L (0.01-0.04) ng/mL C-Reactive Protein 0.7 (0.5-1.0) mg/dL Total Protein 7.2 (6.0-8.3) g/dL Albumin 4.7 (3.3-5.0) g/dL Lipase 65 (23-300) U/L 12/18/21 Range/Units 19:40 WBC (4.50-11.00) K/uL RBC (4.00-5.20) m/uL Hgb (12.0-16.0) gm/dL Hct (33.0-51.0) % MCV (80-100) fL MCH (26-34) pg MCHC (32-36) gm/dL RDW Coeff of Lea (11.5-15.5) % Plt Count (140-440) K/uL Neut % (Auto) (42.0-72.0) % Lymph % (Auto) (20-44) % Esmeralda % (Auto) (0.0-11.0) % Eos % (Auto) (0.0-7.0) % Baso % (Auto) (0.0-3.0) % Neut # (Auto) (1.7-7.0) K/uL Lymph # (Auto) (0.90-2.90) K/uL Esmeralda # (Auto) (0.00-0.90) K/UL Eos # (Auto) (0.00-0.50) K/uL Baso # (Auto) (0.00-0.30) K/uL Abs Immat Gran (auto) (0.00-0.30) K/uL Sodium (135-149) mmol/L Potassium (3.6-5.1) mmol/L Chloride (96-114) mmol/L Carbon Dioxide (20-32) mmol/L BUN (7-30) mg/dL Creatinine (0.5-1.5) mg/dL Estimated Creat Clear Estimated GFR ml/min Glucose (60-115) mg/dL Lactate 0.9 (0.5-1.9) mmol/L Calcium (8.4-10.6) mg/dL Total Bilirubin (0.1-1.5) mg/dL Direct Bilirubin (0.0-0.5) mg/dL AST (12-35) U/L ALT (4-35) U/L Alkaline Phosphatase (40-150) U/L Troponin I (0.01-0.04) ng/mL C-Reactive Protein (0.5-1.0) mg/dL Total Protein (6.0-8.3) g/dL Albumin (3.3-5.0) g/dL Lipase (23-300) U/L Imaging Data Chest x-ray: Attestation: I have reviewed the pertinent imaging results. My impression: No acute pathology Radiologist's impression: Chest radiograph 1 view COMPARISON: 06/27/2021 FINDINGS: Cardiovascular and mediastinum: The heart silhouette is normal in size and morphology. The mediastinum is normal in appearance. Lungs and pleural spaces: Both lungs are unremarkable in appearance. No sign of pleural effusion seen. No pneumothorax is identified. Bones and soft tissues: No significant findings. IMPRESSION: 1. No acute cardiopulmonary disease is seen. Discharge Plan Discharge Clinical Impression: Loose stools, Chest pain Patient Disposition: [facility] Condition: Stable Additional Instructions: Recommend following up with primary care provider to discuss any follow-up tests if necessary for chest discomfort. Chest discomfort today does not appear to be cardiac related, however there are further test that can be done to make sure. Recommend returning to the ER if symptoms recur and do not pass. Would recommend that the Memory Care Unit collect a stool sample and send in for C diff testing. Follow Up/Referrals: Provider,Not a Local [Primary Care Provider] - Stand Alone Forms: [employer] Info Instructions
[2021-12-18 20:37] LABS: Albumin* 4.7 g/dL (3.3-5.0); Chloride* 100 mmol/L (96-114)
[2021-12-18 20:38] LABS: Potassium* 3.6 mmol/L (3.6-5.1); Sodium* 140 mmol/L (135-149)
[2021-12-18 20:39] VITALS: PULSE 83; O2SAT 98
[2021-12-18 20:39] LABS: Bilirubin Direct* 0.3 mg/dL (0.0-0.5); Bilirubin Total* 0.9 mg/dL (0.1-1.5); Total Protein* 7.2 g/dL (6.0-8.3)
[2021-12-18 20:40] LABS: Alanine Aminotransferase* 5 U/L (4-35); Alkaline Phosphatase* 84 U/L (40-150); Aspartate Amino Transferase* 27 U/L (12-35); Creatinine* 0.5 mg/dL (0.5-1.5); Est. Creatinine Clearance* 55.82; Estimated Glomerular Filt Rate 103 ml/min; Lipase* 65 U/L (23-300)
[2021-12-18 20:41] LABS: Blood Urea Nitrogen* 18 mg/dL (7-30); Carbon Dioxide* 29 mmol/L (20-32); Glucose* 135 mg/dL (60-115)
[2021-12-18 20:42] LABS: Calcium* 9.6 mg/dL (8.4-10.6)
[2021-12-18 20:44] LABS: C Reactive Protein* 0.7 mg/dL (0.5-1.0)
[2021-12-18 20:53] LABS: Troponin I* < 0.01 ng/mL (0.01-0.04)
--- NOTE | 2021-12-18 21:50 | ED.NURSE ---
contained with instructions on stool sample storage and delivery given to pt and daughter upon discharge.
== END 2021-12-18 21:52 ==
PROVIDERS: Emergency Provider Family Medicine
DX: R07.9 Chest pain, unspecified (principal); R19.5 Other fecal abnormalities
CPT/HCPCS: 36415; 71045; 80048; 80076; 83605; 83690; 84484; 85025; 86140; 87493; 93005; 94761; 99284; 99285